=== PATIENT | male | born 1970 | race Caucasian/White ===

== ENCOUNTER 2018-07-16 23:29 | Inpatient (IN) | END 2018-07-19 14:40 | disposition home or self-care (01) | DRG 291 ==

== ENCOUNTER 2018-08-19 10:01 | Inpatient (IN) | payer OTHER ==
[2018-08-19] VITALS (7 sets, daily range): BP systolic 118–126; BP diastolic 74–83; PULSE 83–110; RESP 16–20; Ht 180.3 cm; Wt 104.6 kg
[~2018-08-19] VITALS: Ht 180.3 cm; Wt 104.6 kg
[~2018-08-19 10:01] MED LIST: ALBU8.5H8 INH; ENAL2.5T PO; FURO40TA4 PO; POTA8CAP PO
[2018-08-19] MEDS ORDERED: morphine SULFATE/PF (2 MG/2 ML) SYG IV PRN (13:00)
[2018-08-19] MEDS ORDERED: ONDANSETRON 4 MG INJ IV PRN (13:00)
[2018-08-19] MEDS ORDERED: ZOLPIDEM 5 MG TAB PO PRN (13:00)
[2018-08-19] MEDS ORDERED: ACETAMINOPHEN 325 MG TAB PO PRN (13:00)
[2018-08-19] MEDS ORDERED: NACL 0.9% 3 ML SYG IV SCH (13:00)
[2018-08-19] MEDS ORDERED: DOCUSATE SODIUM 100 MG CAP PO PRN (13:00)
[2018-08-19] MEDS ORDERED: HYDROCODONE/APAP (5/325) TAB PO PRN (13:00)
--- NOTE | 2018-08-19 15:34 | HP ---
Date/Time of Note Date/Time of Note DATE: 08/19/18 TIME: 15:31 Assessment/Plan VTE Prophylaxis Pharmacological prophylaxis: LMWH Lines/Catheters IV Catheter Type (from Nrsg): Saline Lock Assessment/Plan Hospital Course 1. CHF exacerbation with anasarca Lasix IV Continue home cardiac meds 2. History of methamphetamine abuse Cessation 3. History of cirrhosis with ascites Ultrasound of the abdomen 4. History of tobacco abuse Cessation 5. Obesity Lifestyle changes advised Prophylaxis: Lovenox HPI/ROS Admit Date/Time Admit Date/Time Aug 19, 2018 at 10:56 Hx of Present Illness Patient is a 48-year-old male with a history of cardiomyopathy with an EF of 30% secondary to methamphetamine abuse, cirrhosis with ascites, COPD and obesity who presents with anasarca and shortness of breath. Patient states that he is compliant with his Lasix and sometimes doubles up when his shortness of breath worsens. Patient has no other complaints at this time. Patient was transferred to [facility] due to capitation. ROS Constitutional: no complaints, improved Eyes: no complaints ENT: no complaints Respiratory: shortness of breath Cardiovascular: no complaints Gastrointestinal: no complaints Genitourinary: no complaints Musculoskeletal: no complaints Skin: no complaints Neurologic: no complaints Endocrine: no complaints Lymphatic: no complaints Psychological: no complaints, nl mood/affect Immunologic: no complaints PMH/Family/Social Past Medical History As per HPI Medications Current Medications IV Flush (NS 3 ml) 3 ml PER PROTOCOL IV ; Start 08/19/18 at 13:00 Ondansetron HCl (Zofran Inj) 4 mg Q6H PRN IV NAUSEA AND/OR VOMITING; Start 08/19/18 at 13:00 Acetaminophen (Tylenol Tab) 650 mg Q6H PRN PO PAIN LEVEL 1-3 OR FEVER; Start 08/19/18 at 13:00 Acetaminophen/ Hydrocodone Bitart ([place] (5/325)) 1 tab Q6H PRN PO MODERATE PAIN LEVEL 4-6; Start 08/19/18 at 13:00 Morphine Sulfate (morphine SULFATE (PF)) 2 mg Q4H PRN IV SEVERE PAIN LEVEL 7- 10; Start 08/19/18 at 13:00 Docusate Sodium (Colace) 100 mg Q12H PRN PO CONSTIPATION; Start 08/19/18 at 13:00 Zolpidem Tartrate (Ambien) 5 mg QHS PRN PO SLEEP; Start 08/19/18 at 13:00 Enoxaparin Sodium (Lovenox) 40 mg DAILY SC ; Start 08/20/18 at 09:00 Enalapril Maleate (Vasotec) 2.5 mg DAILY PO ; Start 08/20/18 at 09:00 Potassium Chloride (Micro-K) 8 meq DAILY PO ; Start 08/20/18 at 09:00 Furosemide (Lasix) 40 mg BID DIURETICS IV ; Start 08/19/18 at 18:00 Coded Allergies: No Known Allergy (Unverified , 04/06/16) Family History Significant Family History: no pertinent family hx Social History Alcohol Use: rarely Smoking Status: Current every day smoker Drug Use: other (Meth) Exam/Review of Systems Vital Signs Vitals Vital Signs Date Temp Pulse Resp B/P (MAP) Pulse Ox O2 O2 Flow FiO2 Time Delivery Rate 08/19/18 98.3 83 20 126/74 94 15:18 (91) 08/19/18 Room Air 11:40 Exam Constitutional: alert, oriented Respiratory: clear to auscultation Cardiovascular: regular rate and rhythm Gastrointestinal: soft, non-tender, distended Extremities: edema EVELIO MCKINNEY Aug 19, 2018 15:34
[2018-08-19] MEDS ORDERED: ALBUTEROL/IPRATROPIUM (NEB) 3 ML AMP HHN PRN (16:00)
[2018-08-19] MEDS ORDERED: SPIRONOLACTONE 50 MG TAB PO SCH (18:00)
[2018-08-19] MEDS: FUROSEMIDE 40 MG INJ IV SCH (18:26)
[2018-08-19] MEDS: SPIRONOLACTONE 50 MG TAB PO SCH (18:26)
--- NOTE | 2018-08-19 19:39 | NUR ---
EOSS: Pt admitted today from [place]-arrived via ambulance around 1100. AO x 4, VSS except ST on tele. Ambulatory, steady. Orders received from Dr. Price and carried out. Needs attended. Endorsed care to oncoming shift.
[2018-08-20] VITALS (7 sets, daily range): BP systolic 110–126; BP diastolic 68–79; PULSE 98–112; RESP 18–20
[2018-08-20] MEDS: SPIRONOLACTONE 50 MG TAB PO SCH (06:46)
[2018-08-20] MEDS: FUROSEMIDE 40 MG INJ IV SCH (06:46)
[2018-08-20] MEDS ORDERED: ENOXAPARIN 40 MG/0.4 ML SYG SC SCH (09:00)
[2018-08-20] MEDS ORDERED: POTASSIUM CHLORIDE (SR) 8 MEQ CAP PO SCH (09:00)
[2018-08-20] MEDS ORDERED: ENALAPRIL 2.5 MG TAB PO SCH (09:00)
[2018-08-20] MEDS ORDERED: ENAL2.5T PO (10:44)
[2018-08-20] MEDS ORDERED: FURO-109 PO (10:44)
[2018-08-20] MEDS ORDERED: SPIR50TA PO (10:44)
--- NOTE | 2018-08-20 10:45 | PDOCDIS ---
Discharge Instructions CONDITION [id number] Patient Condition: [id number] Good HOME CARE INSTRUCTIONS: [id number] Special Diet: [id number] FOLLOW UP/APPOINTMENTS Follow-up Plan FOLLOW UP WITH YOUR PCP IN 1-2 WEEKS EVELIO MCKINNEY Aug 20, 2018 10:45
--- NOTE | 2018-08-20 16:59 | DS ---
Date/Time of Note Date/Time of Note DATE: 08/20/18 TIME: 16:57 Discharge Summary Admission/Discharge Info Admit Date/Time Aug 19, 2018 at 10:56 Discharge Date/Time Aug 20, 2018 at 13:50 Discharge Diagnosis 1. Anasarca secondary to CHF exacerbation and cirrhosis-improved Patient has responded to high-dose Lasix and Aldactone, DC with both Continue home enalapril 2. History of methamphetamine abuse Cessation advised 3. History of cirrhosis with ascites Ultrasound of the abdomen shows only mild ascites DC with Lasix and Aldactone 4. History of tobacco abuse Cessation 5. Obesity Lifestyle changes advised Patient Condition: Good Hospital Course Patient is a 48-year-old male with a history of cardiomyopathy with an EF of 30% secondary to methamphetamine abuse, cirrhosis with ascites, COPD and obesity who presents with anasarca and shortness of breath. Patient states that he is compliant with his Lasix and sometimes doubles up when his shortness of breath worsens. Patient was started on high-dose Lasix and Aldactone with improvement of his anasarca. Abdominal ultrasound only showed minimal ascites, patient was stable for DC and on the day of discharge patient's vitals, labs and physical exam are stable, patient has no acute complaints questions are answered. Home Meds Active Scripts Furosemide* (Lasix*) 40 Mg Tablet, 40 MG PO BID, #60 TAB 1 Refill Take with Aldactone at the same time, try to take evening dose of both Lasix and Aldactone before 6 PM as to not effect your sleep Prov:EVELIO MCKINNEY 08/20/18 Spironolactone* (Aldactone*) 50 Mg Tablet, 100 MG PO BID, #60 TAB 1 Refill Prov:EVELIO MCKINNEY 08/20/18 Enalapril Maleate* (Enalapril Maleate*) 2.5 Mg Tablet, 2.5 MG PO DAILY, #60 TAB 0 Refills Prov:EVELIO MCKINNEY 08/20/18 Albuterol Sulfate* (Proair HFA*) 8.5 Gm Hfa.aer.ad, 2 PUFF INH Q6 for SOB, #1 INHALER Prov:CHRISTINA PERLA NP 07/19/18 Discontinued Scripts Furosemide* (Furosemide*) 40 Mg Tablet, 40 MG PO DAILY, #30 TAB Prov:CHRISTINA PERLA NP 07/19/18 Potassium Chloride* (Potassium Chloride*) 8 Meq Capsule.er, 8 MEQ PO DAILY, #30 CAP Prov:CHRISTINA PERLA MEDICAL ASST 07/19/18 Follow-up Plan FOLLOW UP WITH YOUR PCP IN 1-2 WEEKS Primary Care Provider Not On Staff Doctor Time spent on discharge: > 30 minutes EVELIO MCKINNEY Aug 20, 2018 16:59
== END 2018-08-20 13:50 | disposition home or self-care (01) | DRG 292 ==
LOC: 6WM 10:56
PROVIDERS: ADMIT Internal Medicine; ATTEND Internal Medicine
DX: I50.9 Heart failure, unspecified (principal); R18.8 Other ascites; I42.9 Cardiomyopathy, unspecified; K74.60 Unspecified cirrhosis of liver; F15.10 Other stimulant abuse, uncomplicated; Z72.0 Tobacco use; E66.9 Obesity, unspecified; Z68.32 Body mass index [BMI] 32.0-32.9, adult
CPT/HCPCS: 76705; 80048; 83036; 83735; 85025; J1650; J1940

== ENCOUNTER 2018-10-02 14:28 | Inpatient (IN) | payer OTHER ==
[~2018-10-02] VITALS: Ht 180.3 cm; Wt 109.0 kg
[~2018-10-02 14:28] MED LIST changes: +FURO-109 PO; -FURO40TA4 PO; -POTA8CAP PO; +SPIR50TA PO
[2018-10-02] MEDS ORDERED: FUROSEMIDE 40 MG INJ IV STA (14:57)
[2018-10-02] MEDS ORDERED: ASPIRIN 81 MG TAB PO STA (14:57)
[2018-10-02] MEDS ORDERED: NITROGLYCERIN 2% 1 GM OINT PKT TD STA (14:57)
[2018-10-02] MEDS ORDERED: NITROGLYCERIN (SL) 0.4 MG TAB SL PRN ×2 (15:00→18:30)
[2018-10-02] MEDS ORDERED: VANCOMYCIN 1 GM (PMX) 250 ML IVPB STA (15:50)
[2018-10-02] MEDS ORDERED: CEFEPIME 1GM/50 ML (PMX) 50 ML IVPB STA (15:50)
[2018-10-02] MEDS ORDERED: ONDANSETRON 4 MG INJ IV PRN ×2 (16:30→18:30)
[2018-10-02] MEDS ORDERED: ACETAMINOPHEN 325 MG TAB PO PRN ×2 (16:30→18:30)
--- NOTE | 2018-10-02 16:53 | ERD ---
ER Documentation Chief Complaint Chief Complaint cp and sob x 3 to 4 days; abdominal distention HPI Patient is a 48-year-old male with hepatitis C and CHF who presents with chest pain and shortness of breath. The patient started a few months ago shortness of breath but over the last 3 days has gotten worse. The patient has a history of CHF. He takes Lasix but is still having bilateral lower extremity and abdominal swelling. He said that he cannot sleep at night and his shortness of breath is worse with laying down. Upon review of old medical records the patient has had multiple visits with CHF in the past. He does not currently have a primary doctor. ROS All systems reviewed and are negative except as per history of present illness. Medications Home Meds Active Scripts Furosemide* (Lasix*) 40 Mg Tablet, 40 MG PO BID, #60 TAB 1 Refill Take with Aldactone at the same time, try to take evening dose of both Lasix and Aldactone before 6 PM as to not effect your sleep Prov:EVELIO MCKINNEY 08/20/18 Spironolactone* (Aldactone*) 50 Mg Tablet, 100 MG PO BID, #60 TAB 1 Refill Prov:EVELIO MCKINNEY 08/20/18 Enalapril Maleate* (Enalapril Maleate*) 2.5 Mg Tablet, 2.5 MG PO DAILY, #60 TAB 0 Refills Prov:EVELIO MCKINNEY 08/20/18 Albuterol Sulfate* (Proair HFA*) 8.5 Gm Hfa.aer.ad, 2 PUFF INH Q6 for SOB, #1 INHALER Prov:CHRISTINA PERLA NP 07/19/18 Allergies Allergies: Coded Allergies: No Known Allergy (Unverified , 10/02/18) PMhx/Soc History of Surgery: Yes (right wrist ORIF, appendectomy, tonsillectomy) Anesthesia Reaction: No Hx Neurological Disorder: No Hx Respiratory Disorders: Yes (asthma) Hx Cardiac Disorders: Yes (CHF) Hx Psychiatric Problems: No Hx Miscellaneous Medical Probl: No Hx Alcohol Use: No Hx Substance Use: Yes (meth last used 10/01/18) Hx Tobacco Use: Yes (1.5 pack/day) Smoking Status: Current every day smoker FmHx Family History: coronary disease Physical Exam Vitals Vital Signs Date Temp Pulse Resp B/P (MAP) Pulse Ox O2 O2 Flow FiO2 Time Delivery Rate 10/02/18 2 15:17 10/02/18 96.5 120 24 178/86 99 14:31 (116) Physical Exam Const: No acute distress Head: Atraumatic Eyes: Normal Conjunctiva ENT: Normal External Ears, Nose and Mouth. Neck: Full range of motion. No meningismus. Resp: Decreased breath sounds bilaterally Cardio: Tachycardic rate without murmur Abd: Anasarca Skin: No petechiae or rashes Back: No midline or flank tenderness Ext: Bilateral lower extremity edema Neur: Awake and alert Psych: Normal Mood and Affect Result Diagram: 10/02/18 1500 10/02/18 1500 Results 24 hrs Laboratory Tests Test 10/02/18 15:00 10/02/18 15:58 White Blood Count 9.5 10^3/ul Red Blood Count 5.68 10^6/ul Hemoglobin 14.7 g/dl Hematocrit 48.3 % Mean Corpuscular Volume 85.0 fl Mean Corpuscular Hemoglobin 25.9 pg Mean Corpuscular Hemoglobin Concent 30.4 g/dl Red Cell Distribution Width 14.6 % Platelet Count 289 10^3/UL Mean Platelet Volume 10.5 fl Immature Granulocytes % 0.500 % Neutrophils % 67.1 % Lymphocytes % 19.1 % Monocytes % 11.0 % Eosinophils % 1.8 % Basophils % 0.5 % Nucleated Red Blood Cells % 0.0 /100WBC Immature Granulocytes # 0.050 10^3/ul Neutrophils # 6.4 10^3/ul Lymphocytes # 1.8 10^3/ul Monocytes # 1.1 10^3/ul Eosinophils # 0.2 10^3/ul Basophils # 0.1 10^3/ul Nucleated Red Blood Cells # 0.0 10^3/ul Sodium Level 135 mmol/L Potassium Level 4.3 mmol/L Chloride Level 99 mmol/L Carbon Dioxide Level 23 mmol/L Anion Gap 13 Blood Urea Nitrogen 41 mg/dl Creatinine 1.59 mg/dl Est Glomerular Filtrat Rate mL/min 46 mL/min Glucose Level 112 mg/dl Calcium Level 9.5 mg/dl Troponin I 0.062 ng/ml POC Venous Lactate 2.6 mmol/L Current Medications Medications Dose Sig/Pravin Start Time Status Last (Trade) Ordered Route PRN Stop Time Admin Dose Reason Admin Aspirin 162 mg ONCE STAT 10/02/18 DC 10/02/18 (Aspirin) PO 14:57 15:10 10/02/18 14:58 1 inch ONCE STAT 10/02/18 DC 10/02/18 Nitroglycerin TD 14:57 15:10 10/02/18 14:58 (Nitroglyceri n 2% Oint) 1 tab Q5M UP TO 3 10/02/18 Nitroglycerin DOSES PRN 15:00 SL .CHEST (Nitroglyceri PAIN n (Sl Tab) 0.4 Mg) Furosemide 40 mg ONCE STAT 10/02/18 DC 10/02/18 (Lasix) IV 14:57 15:11 10/02/18 14:58 Cefepime HCl 50 ml @ ONCE STAT 10/02/18 DC 10/02/18 100 mls/hr IVPB 15:50 16:17 10/02/18 16:19 Vancomycin 250 ml @ ONCE STAT 10/02/18 HCl 125 mls/hr IVPB 15:50 10/02/18 17:49 Ondansetron 4 mg ER BRIDGE 10/02/18 HCl (Zofran PRN IV 16:30 Inj) NAUSEA/VOMITI 10/03/18 16:29 NG 650 mg ER BRIDGE 10/02/18 Acetaminophen PRN PO 16:30 (Tylenol .MILD PAIN 10/03/18 16:29 Tab) 1-3 OR TEMP Procedures/MDM EKG #1 read by me: Rate/Rhythm: Sinus tachycardia rate of 115 Intervals: Normal Impression: Tachycardia without ischemia EKG #2 read by me: Rate/Rhythm: Sinus tachycardia at a rate of 112 Intervals: Normal Impression: Tachycardia without ischemia Chest x-ray shows right lower lobe pneumonia per radiology. Smoking Cessation Therapy: Pt. was lectured for greater than 3 minutes on the health risks of continued smoking and the benefits of cessation. Sepsis Documentation: Patient's infectious symptoms have not stabilized and the patient is at risk of rapid decompensation. The patient will be admitted for careful hydration, antibiotic therapy, and infectious source control. SEVERE SEPSIS CRITERIA: Infectious source: Pneumonia End organ damage indicated by: Lactic acid greater than 2 SEPSIS MANAGEMENT Time of recognition of sepsis: 1558. Time of recognition of severe sepsis: 1558. Time of recognition of septic shock: No septic shock at this time. 3 HOUR BUNDLE Blood cultures x 2 before broad-spectrum antibiotics: Yes 30 ml/kg NS bolus not done because the patient has CHF and I am concerned about fluid overload Initial lactate 2.6 Repeat lactate pending SEPTIC SHOCK ASSESSMENT: No lactic acid > 4.0 No persistent hypotension (SBP < 90 or 40 mmHg drop, MAP < 65) despite 30 mL/kg IV fluid bolus VOLUME REASSESSMENT FOR SEPTIC SHOCK: No septic shock at this time PERSISTENT HYPOTENSION TREATMENT: Comfort care no Central line not Required Vasopressor started not required I considered further perfusion assessment with CVP measurement, SCVO2, bedside ultrasound volume assessment, passive leg raise, trial of further fluid bolus. And proceeded with broad-spectrum antibiotics, aspirin, nitroglycerin, Lasix, and admission to the panel team CRITICAL CARE Critical care time 35 minutes Emergent fluid management while maintaining close respiratory support. Provision of immediate and broad-spectrum antibiotic therapy. Simultaneous assessment for possible sources in order to direct targeted therapy. C onsideration for invasive and chemical support to prevent cardiopulmonary collapse. Critical care time is independent of procedures performed. Departure Diagnosis: Primary Impression: Severe sepsis Additional Impressions: PNA (pneumonia) Pneumonia type: due to unspecified organism Laterality: right Lung location: lower lobe of lung Qualified Codes: J18.1 - Lobar pneumonia, unspecified organism Chest pain Chest pain type: unspecified Qualified Codes: R07.9 - Chest pain, u nspecified Condition: ANURAG Chahal MD Oct 02, 2018 16:53
[2018-10-02] MEDS ORDERED: NACL 0.9% 3 ML SYG IV SCH (18:30)
[2018-10-02] MEDS ORDERED: MAGNESIUM HYDROXIDE 30ML CUP PO PRN (18:30)
[2018-10-02] MEDS ORDERED: DOCUSATE SODIUM 100 MG CAP PO PRN (18:30)
[2018-10-02] MEDS ORDERED: HYDROCODONE/APAP (5/325) TAB PO PRN (18:30)
[2018-10-02] MEDS ORDERED: ALBUTEROL/IPRATROPIUM (NEB) 3 ML AMP HHN PRN (18:30)
[2018-10-02] MEDS ORDERED: hydrALAzine 20 MG INJ IV PRN (18:30)
--- NOTE | 2018-10-02 19:43 | HP ---
DATE OF ADMISSION: 10/02/2018 IDENTIFICATION: This is 48-year-old male. CHIEF COMPLAINT: Chest pain and shortness of breath. HISTORY OF PRESENT ILLNESS: A 48-year-old male with past medical history of hepatitis C, CHF, IV anival g abuse including methamphetamine, cigarette smoking, likely cirrhosis, asthma, who comes in with arcenio rtness of breath. Symptoms have been going on for the last 3 to 4 days. He has also noted some incr easing abdominal distention and some chest pressure. The patient says he takes Aldactone and Lasix b ut he still noticed swelling occurring over the last few days worsening. He has had difficulty sleep ing at night, symptoms of possible PND and orthopnea. The patient was last here at our hospital in [facility] 08/2018. At that time, he was treated for anasarca secondary to CHF failure and likely cirrhosi s. When he came in today, he was now with a lactic acid of 2.6. His creatinine appears to be at bas mulu at 1.59. He had a chest x-ray today that shows also mild cardiomegaly and a right lower lobe i nfiltrate and right pleural effusion, signs of possible upper respiratory infection and he got a dose of antibiotics in the ER as well as Lasix IV. PAST MEDICAL HISTORY: As mentioned above. ALLERGIES: NO KNOWN DRUG ALLERGIES. HOME MEDICATIONS: 1. ProAir HFA inhale q.6 hours. 2. Enalapril 2.5 mg daily. 3. Aldactone 100 mg b.i.d. 4. Lasix 40 mg b.i.d. PAST SURGICAL HISTORY: He had right wrist surgery in the past, appendectomy, tonsillectomy. SOCIAL HISTORY: He does smoke methamphetamine and last use was 24 hours ago. He does smoke 1-1/2 pa cks of cigarettes per day, unclear for how long he has been doing this. Denies any alcohol use. FAMILY HISTORY: Positive for coronary artery disease. PHYSICAL EXAMINATION: VITAL SIGNS: Today, T-max was 96.5, pulse 120, respirations 24, blood pressure 178/86, satting at 99 % on 2 liters' nasal cannula. GENERAL: The patient is lying in bed complaining of some abdominal pain and distention, otherwise al ert. HEENT: Pupils are equal, round, react to light. Extraocular muscles are intact. NECK: Supple. No thyromegaly. LUNGS: Distant breath sounds bilaterally. CARDIOVASCULAR: S1, S2. No rubs or gallops. ABDOMEN: Significantly distended and very firm, almost tympanic. Hypoactive bowel sounds. No rebou nd or guarding. MUSCULOSKELETAL: A 1+ pitting edema bilateral lower extremities to the mid calves. NEUROLOGIC: No focal deficits, also noted generalized anasarca. LABORATORIES: CBC is normal. We mentioned lactic acid findings. Sodium 135, potassium of 4.3, chlo ride 99, CO2 of 23, BUN 41, creatinine 1.59, glucose 112. DIAGNOSTIC DATA: We mentioned the imaging findings. ASSESSMENT AND PLAN: A 48-year-old male coming in with shortness of breath and chest pressure with s igns of combination of congestive heart failure exacerbation, anasarca, possible right lower lobe pne umonia. 1. Shortness of breath and chest pressure, again that the patient was treated for congestive heart f ailure exacerbation. Put him on Lasix IV b.i.d. Keep head of the bed greater than 30 degrees. Chec k TSH, A1c and lipid panel. Also, trend his troponins q.6 hours. Rule out for acute coronary sympto ms as he does have chest pressure. Put him on high dose aspirin, morphine, oxygen and nitroglycerin. Monitor ins and outs and daily weights. Continue Aldactone for now. 2. Possible right lower lobe pneumonia. Again, put him on Levaquin antibiotics for now. 3. History of hepatitis C with cirrhosis. Again given his abdominal distention, we are going to ord er ultrasound. Consider for paracentesis. 4. Smoking history. Counseled on smoking cessation. 5. History of methamphetamine abuse, counseled on drug cessation. 6. Gastrointestinal prophylaxis. PPI. Dictated By: IRINEO CASTAÑEDA/ELDA Conf#: [id number] DID#: [id number] CC: JAVI STEVENS MD;*EndCC*
[2018-10-02 20:00] VITALS: BP 113/79; PULSE 101; PULSE 104; RESP 18; Ht 180.3 cm; Wt 109.0 kg
[2018-10-02] MEDS: LEVOFLOXACIN 750MG/D5W (PMX) 150 ML IVPB SCH (20:33)
[2018-10-02] MEDS: SPIRONOLACTONE 50 MG TAB PO SCH (20:33)
[2018-10-02] MEDS: morphine 2 MG INJ IV PRN (20:33)
[2018-10-03] VITALS (12 sets, daily range): BP systolic 102–121; BP diastolic 68–80; PULSE 101–109; RESP 0–20
[2018-10-03] MEDS: morphine 2 MG INJ IV PRN ×5 (00:50→23:53)
[2018-10-03] MEDS: ALBUTEROL HFA 8 GM INHALER INH SCH ×5 (01:24→23:05)
[2018-10-03] MEDS: PANTOPRAZOLE (EC) 40 MG TAB PO SCH (06:21)
[2018-10-03] MEDS: FUROSEMIDE 40 MG INJ IV SCH ×2 (06:27→17:14)
[2018-10-03] MEDS: SPIRONOLACTONE 50 MG TAB PO SCH ×2 (09:27→20:31)
[2018-10-03] MEDS: ASPIRIN (EC) 325 MG TAB PO SCH (09:27)
[2018-10-03] MEDS: LORAZEPAM 2 MG INJ IV PRN ×2 (10:29→23:53)
--- NOTE | 2018-10-03 11:08 | PN ---
Date/Time of Note Date/Time of Note DATE: 10/03/18 TIME: 11:08 Assessment/Plan VTE Prophylaxis Risk score (from Ns)>0 risk: 2 SCD applied (from Ns): Yes Pharmacological prophylaxis: other Lines/Catheters IV [facility]from [facility] Saline Lock Urinary Cath still in place: No Assessment/Plan Hospital Course S: Patient still having some abdominal distention symptoms and mild pain. Testicular ultrasound performed no acute abnormalities noted. Awaiting paracentesis to be performed later today. Waiting to be seen by cardiology team as well. O: VS - see below PHYSICAL EXAMINATION: GENERAL: lying in bed, otherwise alert. HEENT: Pupils are equal, round, react to light. Extraocular muscles are intact. NECK: Supple. No thyromegaly. LUNGS: Distant breath sounds bilaterally. CARDIOVASCULAR: S1, S2. No rubs or gallops. ABDOMEN: Still with significantly distended and very firm, almost tympanic. Hypoactive bowel sounds. No rebound or guarding, also noted generalized isrrael sarca. MUSCULOSKELETAL: 1+ pitting edema bilateral lower extremities to the mid calves. NEUROLOGIC: No focal deficits ASSESSMENT AND PLAN: 48-year-old male coming in with shortness of breath and chest pressure with signs of combination of congestive heart failure exacerbation, anasarca, possible right lower lobe pneumonia. 1. Shortness of breath and chest pressure- again secondary to CHF and likely cirrhosis. Echocardiogram performed in late June 2018 showed ejection fraction 30% at that time. Has presently ruled out for acute coronary syndrome. -Continue Lasix IV b.i.d, head of the bed greater than 30 degrees. -Follow-up TSH, A1c and lipid panel. - Monitor ins and outs and daily weights. - Continue Aldactone for now. 2. Possible right lower lobe pneumonia -seen on chest x-ray on admission -Continue Levaquin antibiotics for now. 3. History of hepatitis C with cirrhosis-diagnosed on prior abdominal imaging study on last admission 2 months ago. - Again given his abdominal distention, ordered for and awaiting paracentesis. 4. Smoking history - Counseled on smoking cessation. 5. History of methamphetamine abuse- counseled on drug cessation. 6. Gastrointestinal prophylaxis - PPI. Result Diagram: 10/03/18 0620 10/03/18 0620 Results 24hrs Laboratory Tests Test 10/02/18 15:00 10/02/18 15:58 10/02/18 18:24 10/03/18 00:15 White Blood Count 9.5 # Red Blood Count 5.68 Hemoglobin 14.7 Hematocrit 48.3 Mean Corpuscular 85.0 Volume Mean Corpuscular 25.9 L Hemoglobin Mean Corpuscular 30.4 L Hemoglobin Concent Red Cell 14.6 H Distribution Width Platelet Count 289 # Mean Platelet Volume 10.5 H Immature 0.500 H Granulocytes % Neutrophils % 67.1 Lymphocytes % 19.1 Monocytes % 11.0 Eosinophils % 1.8 Basophils % 0.5 Nucleated Red Blood 0.0 Cells % Immature 0.050 H Granulocytes # Neutrophils # 6.4 Lymphocytes # 1.8 Monocytes # 1.1 H Eosinophils # 0.2 Basophils # 0.1 Nucleated Red Blood 0.0 Cells # Sodium Level 135 Potassium Level 4.3 Chloride Level 99 Carbon Dioxide Level 23 Anion Gap 13 Blood Urea Nitrogen 41 H Creatinine 1.59 H Est Glomerular 46 L Filtrat Rate mL/min Glucose Level 112 Calcium Level 9.5 Troponin I 0.062 0.065 POC Venous Lactate 2.6 *H Lactic Acid Level 2.4 *H 1.3 Free Thyroxine 2.00 H Creatine Kinase 282 H Creatine Kinase 2.1 Index Creatinine Kinase MB 5.90 H (Mass) Test 10/03/18 06:20 White Blood Count 7.2 # Red Blood Count 5.62 Hemoglobin 14.3 Hematocrit 47.1 Mean Corpuscular 83.8 Volume Mean Corpuscular 25.4 L Hemoglobin Mean Corpuscular 30.4 L Hemoglobin Concent Red Cell 14.5 Distribution Width Platelet Count 260 Mean Platelet Volume 10.1 Immature 0.400 Granulocytes % Neutrophils % 65.2 Lymphocytes % 21.4 Monocytes % 9.8 Eosinophils % 2.6 Basophils % 0.6 Nucleated Red Blood 0.0 Cells % Immature 0.030 Granulocytes # Neutrophils # 4.7 Lymphocytes # 1.5 Monocytes # 0.7 Eosinophils # 0.2 Basophils # 0.0 Nucleated Red Blood 0.0 Cells # Prothrombin Time 16.6 H Prothrombin Time 1.3 Ratio INR International 1.33 Normalized Ratio Sodium Level 137 Potassium Level 4.3 Chloride Level 99 Carbon Dioxide Level 27 Anion Gap 11 Blood Urea Nitrogen 39 H Creatinine 1.55 H Est Glomerular 48 L Filtrat Rate mL/min Glucose Level 98 Hemoglobin A1c 7.0 H Lactic Acid Level 1.3 Calcium Level 9.9 Phosphorus Level 4.0 Magnesium Level 2.0 Creatine Kinase 205 H Creatine Kinase 3.5 Index Creatinine Kinase MB 7.20 H (Mass) Troponin I 0.065 Triglycerides Level 86 Cholesterol Level 98 L LDL Cholesterol, 66 Calculated HDL Cholesterol 15 L Cholesterol/HDL 6.5 Ratio Thyroid Stimulating 2.100 Hormone (TSH) Exam/Review of Systems Exam Vitals Vital Signs Date Temp Pulse Resp B/P (MAP) Pulse Ox O2 O2 Flow FiO2 Time Delivery Rate 10/03/18 2.0 08:30 10/03/18 97.9 102 16 121/73 98 08:01 (89) 10/02/18 Room Air 19:17 Results Results 24hrs Laboratory Tests Test 10/02/18 15:00 10/02/18 15:58 10/02/18 18:24 10/03/18 00:15 White Blood Count 9.5 # Red Blood Count 5.68 Hemoglobin 14.7 Hematocrit 48.3 Mean Corpuscular 85.0 Volume Mean Corpuscular 25.9 L Hemoglobin Mean Corpuscular 30.4 L Hemoglobin Concent Red Cell 14.6 H Distribution Width Platelet Count 289 # Mean Platelet Volume 10.5 H Immature 0.500 H Granulocytes % Neutrophils % 67.1 Lymphocytes % 19.1 Monocytes % 11.0 Eosinophils % 1.8 Basophils % 0.5 Nucleated Red Blood 0.0 Cells % Immature 0.050 H Granulocytes # Neutrophils # 6.4 Lymphocytes # 1.8 Monocytes # 1.1 H Eosinophils # 0.2 Basophils # 0.1 Nucleated Red Blood 0.0 Cells # Sodium Level 135 Potassium Level 4.3 Chloride Level 99 Carbon Dioxide Level 23 Anion Gap 13 Blood Urea Nitrogen 41 H Creatinine 1.59 H Est Glomerular 46 L Filtrat Rate mL/min Glucose Level 112 Calcium Level 9.5 Troponin I 0.062 0.065 POC Venous Lactate 2.6 *H Lactic Acid Level 2.4 *H 1.3 Free Thyroxine 2.00 H Creatine Kinase 282 H Creatine Kinase 2.1 Index Creatinine Kinase MB 5.90 H (Mass) Test 10/03/18 06:20 White Blood Count 7.2 # Red Blood Count 5.62 Hemoglobin 14.3 Hematocrit 47.1 Mean Corpuscular 83.8 Volume Mean Corpuscular 25.4 L Hemoglobin Mean Corpuscular 30.4 L Hemoglobin Concent Red Cell 14.5 Distribution Width Platelet Count 260 Mean Platelet Volume 10.1 Immature 0.400 Granulocytes % Neutrophils % 65.2 Lymphocytes % 21.4 Monocytes % 9.8 Eosinophils % 2.6 Basophils % 0.6 Nucleated Red Blood 0.0 Cells % Immature 0.030 Granulocytes # Neutrophils # 4.7 Lymphocytes # 1.5 Monocytes # 0.7 Eosinophils # 0.2 Basophils # 0.0 Nucleated Red Blood 0.0 Cells # Prothrombin Time 16.6 H Prothrombin Time 1.3 Ratio INR International 1.33 Normalized Ratio Sodium Level 137 Potassium Level 4.3 Chloride Level 99 Carbon Dioxide Level 27 Anion Gap 11 Blood Urea Nitrogen 39 H Creatinine 1.55 H Est Glomerular 48 L Filtrat Rate mL/min Glucose Level 98 Hemoglobin A1c 7.0 H Lactic Acid Level 1.3 Calcium Level 9.9 Phosphorus Level 4.0 Magnesium Level 2.0 Creatine Kinase 205 H Creatine Kinase 3.5 Index Creatinine Kinase MB 7.20 H (Mass) Troponin I 0.065 Triglycerides Level 86 Cholesterol Level 98 L LDL Cholesterol, 66 Calculated HDL Cholesterol 15 L Cholesterol/HDL 6.5 Ratio Thyroid Stimulating 2.100 Hormone (TSH) Medications Medication Current Medications IV Flush (NS 3 ml) 3 ml PER PROTOCOL IV ; Start 10/02/18 at 18:30 Ondansetron HCl (Zofran Inj) 4 mg Q6H PRN IV NAUSEA/VOMITING; Start 10/02/18 at 18:30 Acetaminophen (Tylenol Tab) 650 mg Q6H PRN PO .PAIN 1-3 OR TEMP; Start 10/02/18 at 18:30 Acetaminophen/ Hydrocodone Bitart ([place] (5/325)) 1 tab Q6H PRN PO .MOD PAIN 4- 6; Start 10/02/18 at 18:30 Morphine Sulfate (morphine) 2 mg Q4H PRN IV .SEVERE PAIN 7-10 Last administered on 10/03/18at 07:02; Admin Dose 2 MG; Start 10/02/18 at 18:30 Docusate Sodium (Colace) 100 mg Q12H PRN PO .CONSTIPATION; Start 10/02/18 at 18:30 Magnesium Hydroxide (Milk Of Mag) 30 ml DAILY PRN PO .CONSTIPATION; Start 10/02/18 at 18:30 Pantoprazole (Protonix Tab) 40 mg DAILY@06 PO Last administered on 10/03/18at 06:21; Admin Dose 40 MG; Start 10/03/18 at 06:00 Lorazepam (Ativan) 0.5 mg Q6H PRN IV ANXIETY Last administered on 10/03/18 10:29; Admin Dose 0.5 MG; Start 10/02/18 at 18:30 Albuterol/ Ipratropium (Duoneb) 3 ml Q4H RESP THERAPY PRN HHN SHORTNESS OF BREATH; Start 10/02/18 at 18:30 Levofloxacin/ Dextrose 150 ml @ 100 mls/hr Q24H IVPB Last administered on 10/02/18 20:33; Admin Dose 100 MLS/HR; Start 10/02/18 at 20:00 Hydralazine HCl (Apresoline) 10 mg Q6H PRN IV ELEVATED BLOOD PRESSURE; Start 10/02/18 at 18:30 Nitroglycerin (Nitroglycerin (Sl Tab) 0.4 Mg) 1 tab Q5M PRN SL ANGINA; Start 10/02/18 at 18:30 Aspirin (Ecotrin) 325 mg DAILY PO Last administered on 10/03/18 09:27; Admin Dose 325 MG; Start 10/03/18 at 09:00 Albuterol (Ventolin Hfa) 2 puff Q6 INH Last administered on 10/03/18 06:21; Admin Dose 2 PUFF; Start 10/03/18 at 00:00 Furosemide (Lasix) 40 mg BID DIURETICS IV Last administered on 10/03/18 06:27; Admin Dose 40 MG; Start 10/03/18 at 06:00 Spironolactone (Aldactone) 100 mg BID PO Last administered on 10/03/18 09:27; Admin Dose 100 MG; Start 10/02/18 at 21:00 IRINEO MARC Oct 03, 2018 11:08
--- NOTE | 2018-10-03 15:28 | CONS ---
Consult Date/Type/Reason Admit Date/Time Oct 02, 2018 at 16:29 Initial Consult Date Type of Consultation: cv Reason for Consultation chf Requesting Provider: IRINEO MARC Date/Time of Note DATE: 10/03/18 TIME: 15:23 Subjective Interventional cardiology consultation note (covering for DR Muñoz/ Jovanny) Chief complaint: sob Reason for consult: CHF /cardiomyopathy History of present illness: Thank you for this referral. History was obtained from the patient review of the old chart discussion multiple physicians and staff This is a 48-year-old male with past medical history of hepatitis C, CHF, IV drug abuse including methamphetamine, cigarette smoking, likely cirrhosis, asth ma, who comes in with shortness of breath. Symptoms have been going on for the last 2 weeks but is been worse over the past 3 to 4 days. Patient reports to me that he used crystal meth about 3 days ago. He is also run out of his medication over the past few days. He denies any chest pain or pressure to me. Patient does complain of leg cramps at night Patient does complain of shortness of breath with activity or even lying down PAST MEDICAL HISTORY: Congestive heart failure/cardiomyopathy, hepatitis, history of drug use including crystal meth, smoker, likely cirrhosis, likely COPD ALLERGIES: NO KNOWN DRUG ALLERGIES. HOME MEDICATIONS: Patient is supposed to be on 1. ProAir HFA inhale q.6 hours. 2. Enalapril 2.5 mg daily. 3. Aldactone 100 mg b.i.d. 4. Lasix 40 mg b.i.d. But he has not been taking any medication for the past few days PAST SURGICAL HISTORY: He had right wrist surgery in the past, appendectomy, tonsillectomy. SOCIAL HISTORY: He does smoke methamphetamine and last use was 2-3 days ago. He does smoke 1-1/2 packs of cigarettes per day, unclear for how long he has been doing this. It appears that has been heavy alcohol use in the past however currently does not drink much FAMILY HISTORY: His father had an CA in his late 70s Allergies: No known drug allergies Review of system: Patient denies all others except for above-mentioned Objective Vitals Vital Signs Date Temp Pulse Resp B/P (MAP) Pulse Ox O2 O2 Flow FiO2 Time Delivery Rate 10/03/18 98.8 106 16 115/79 99 12:04 (91) 2/16/19 2.0 08:30 10/02/18 Room Air 19:17 Results/Medications Result Diagram: 10/03/1861910/03/18 0620 Results 24 hrs Laboratory Tests Test 10/02/18 15:58 10/02/18 18:24 10/03/18 00:15 10/03/18 06:20 POC Venous Lactate 2.6 *H Lactic Acid Level 2.4 *H 1.3 1.3 Free Thyroxine 2.00 H Creatine Kinase 282 H 205 H Creatine Kinase 2.1 3.5 Index Creatinine Kinase MB 5.90 H 7.20 H (Mass) Troponin I 0.065 0.065 White Blood Count 7.2 # Red Blood Count 5.62 Hemoglobin 14.3 Hematocrit 47.1 Mean Corpuscular 83.8 Volume Mean Corpuscular 25.4 L Hemoglobin Mean Corpuscular 30.4 L Hemoglobin Concent Red Cell 14.5 Distribution Width Platelet Count 260 Mean Platelet Volume 10.1 Immature 0.400 Granulocytes % Neutrophils % 65.2 Lymphocytes % 21.4 Monocytes % 9.8 Eosinophils % 2.6 Basophils % 0.6 Nucleated Red Blood 0.0 Cells % Immature 0.030 Granulocytes # Neutrophils # 4.7 Lymphocytes # 1.5 Monocytes # 0.7 Eosinophils # 0.2 Basophils # 0.0 Nucleated Red Blood 0.0 Cells # Prothrombin Time 16.6 H Prothrombin Time 1.3 Ratio INR International 1.33 Normalized Ratio Sodium Level 137 Potassium Level 4.3 Chloride Level 99 Carbon Dioxide Level 27 Anion Gap 11 Blood Urea Nitrogen 39 H Creatinine 1.55 H Est Glomerular 48 L Filtrat Rate mL/min Glucose Level 98 Hemoglobin A1c 7.0 H Calcium Level 9.9 Phosphorus Level 4.0 Magnesium Level 2.0 Triglycerides Level 86 Cholesterol Level 98 L LDL Cholesterol, 66 Calculated HDL Cholesterol 15 L Cholesterol/HDL 6.5 Ratio Thyroid Stimulating 2.100 Hormone (TSH) Test 10/03/18 13:46 Lactic Acid Level 4.0 *H Home Meds Active Scripts Furosemide* (Lasix*) 40 Mg Tablet, 40 MG PO BID, #60 TAB 1 Refill Take with Aldactone at the same time, try to take evening dose of both Lasix and Aldactone before 6 PM as to not effect your sleep Prov:EVELIO MCKINNEY 08/20/18 Spironolactone* (Aldactone*) 50 Mg Tablet, 100 MG PO BID, #60 TAB 1 Refill Prov:EVELIO MCKINNEY 08/20/18 Enalapril Maleate* (Enalapril Maleate*) 2.5 Mg Tablet, 2.5 MG PO DAILY, #60 TAB 0 Refills Prov:EVELIO MCKINNEY 08/20/18 Albuterol Sulfate* (Proair HFA*) 8.5 Gm Hfa.aer.ad, 2 PUFF INH Q6 for SOB, #1 INHALER Prov:CHRISTINA PERLA [employer] 07/19/18 Medications Current Medications IV Flush (NS 3 ml) 3 ml PER PROTOCOL IV ; Start 10/02/18 at 18:30 Ondansetron HCl (Zofran Inj) 4 mg Q6H PRN IV NAUSEA/VOMITING; Start 10/02/18 at 18:30 Acetaminophen (Tylenol Tab) 650 mg Q6H PRN PO .PAIN 1-3 OR TEMP; Start 10/02/18 at 18:30 Acetaminophen/ Hydrocodone Bitart ([place] (5/325)) 1 tab Q6H PRN PO .MOD PAIN 4- 6 Last administered on 10/03/18at 11:21; Admin Dose 1 TAB; Start 10/02/18 at 18:30 Morphine Sulfate (morphine) 2 mg Q4H PRN IV .SEVERE PAIN 7-10 Last administered on 10/03/18at 15:11; Admin Dose 2 MG; Start 10/02/18 at 18:30 Docusate Sodium (Colace) 100 mg Q12H PRN PO .CONSTIPATION; Start 10/02/18 at 18:30 Magnesium Hydroxide (Milk Of Mag) 30 ml DAILY PRN PO .CONSTIPATION; Start 10/02/18 at 18:30 Pantoprazole (Protonix Tab) 40 mg DAILY@06 PO Last administered on 10/03/18at 06:21; Admin Dose 40 MG; Start 10/03/18 at 06:00 Lorazepam (Ativan) 0.5 mg Q6H PRN IV ANXIETY Last administered on 10/03/18at 10:29; Admin Dose 0.5 MG; Start 10/02/18 at 18:30 Albuterol/ Ipratropium (Duoneb) 3 ml Q4H RESP THERAPY PRN HHN SHORTNESS OF BREATH; Start 10/02/18 at 18:30 Levofloxacin/ Dextrose 150 ml @ 100 mls/hr Q24H IVPB Last administered on 10/02/18 20:33; Admin Dose 100 MLS/HR; Start 10/02/18 at 20:00 Hydralazine HCl (Apresoline) 10 mg Q6H PRN IV ELEVATED BLOOD PRESSURE; Start 10/02/18 at 18:30 Nitroglycerin (Nitroglycerin (Sl Tab) 0.4 Mg) 1 tab Q5M PRN SL ANGINA; Start 10/02/18 at 18:30 Aspirin (Ecotrin) 325 mg DAILY PO Last administered on 10/03/18 09:27; Admin Dose 325 MG; Start 10/03/18 at 09:00 Albuterol (Ventolin Hfa) 2 puff Q6 INH Last administered on 10/03/18 12:50; Admin Dose 2 PUFF; Start 10/03/18 at 00:00 Furosemide (Lasix) 40 mg BID DIURETICS IV Last administered on 10/03/18 06:27; Admin Dose 40 MG; Start 10/03/18 at 06:00 Spironolactone (Aldactone) 100 mg BID PO Last administered on 10/03/18 09:27; Admin Dose 100 MG; Start 10/02/18 at 21:00 JAVI STEVENS MD Oct 03, 2018 15:28
[2018-10-03] MEDS ORDERED: DIGOXIN 500 MCG INJ IV ONE (15:30)
--- NOTE | 2018-10-03 15:31 | CONS ---
Assessment/Plan Assessment/Plan Hospital Course (Demo Recall) 1. CHF 2. Severe cardiomyopathy 3. Possible pneumonia 4. Noncompliance and history of smoking and drug use including crystal meth use 5. Dyslipidemia 6. Renal insufficiency Recommendations: Continue with diuresis as tolerated. Monitor renal function and I's and O's. I will decrease Aldactone to 50 twice daily only Digoxin will be added for now. Level to be checked in a few days and adjusted as needed. Need to keep the digit level less than 1.0 Antibiotic management will be deferred to internal medicine decision Thank you for his referral. We will continue to follow along with you until Dr. Muñoz returns on Friday JAVI STEVENS MD [facility] Consultation Date/Type/Reason Admit Date/Time Oct 02, 2018 at 16:29 Date of Consultation: Oct 03, 2018 Type of Consult Cardiology Reason for Consultation CHF Requesting Provider: IRINEO MARC Date/Time of Note DATE: 10/03/18 TIME: 15:28 Hx of Present Illness Interventional cardiology consultation note (covering for DR Muñoz/ Jovanny) Chief complaint: sob Reason for consult: CHF /cardiomyopathy History of present illness: Thank you for this referral. History was obtained from the patient review of the old chart discussion multiple physicians and staff This is a 48-year-old male with past medical history of hepatitis C, CHF, IV drug abuse including methamphetamine, cigarette smoking, likely cirrhosis, asthma, who comes in with shortness of breath. Symptoms have been going on for the last 2 weeks but is been worse over the past 3 to 4 days. Patient reports to me that he used crystal meth about 3 days ago. He is also run out of his medication over the past few days. He denies any chest pain or pressure to me. Patient does complain of leg cramps at night Patient does complain of shortness of breath with activity or even lying down PAST MEDICAL HISTORY: Congestive heart failure/cardiomyopathy, hepatitis, history of drug use including crystal meth, smoker, likely cirrhosis, likely COPD ALLERGIES: NO KNOWN DRUG ALLERGIES. HOME MEDICATIONS: Patient is supposed to be on 1. ProAir HFA inhale q.6 hours. 2. Enalapril 2.5 mg daily. 3. Aldactone 100 mg b.i.d. 4. Lasix 40 mg b.i.d. But he has not been taking any medication for the past few days PAST SURGICAL HISTORY: He had right wrist surgery in the past, appendectomy, tonsillectomy. SOCIAL HISTORY: He does smoke methamphetamine and last use was 2-3 days ago. He does smoke 1-1/2 packs of cigarettes per day, unclear for how long he has been doing this. It appears that has been heavy alcohol use in the past however currently does not drink much FAMILY HISTORY: His father had an AL in his late 70s Allergies: No known drug allergies Review of system: Patient denies all others except for above-mentioned Past Medical History Home Meds Active Scripts Furosemide* (Lasix*) 40 Mg Tablet, 40 MG PO BID, #60 TAB 1 Refill Take with Aldactone at the same time, try to take evening dose of both Lasix and Aldactone before 6 PM as to not effect your sleep Prov:EVELIO MCKINNEY 08/20/18 Spironolactone* (Aldactone*) 50 Mg Tablet, 100 MG PO BID, #60 TAB 1 Refill Prov:EVELIO MCKINNEY 08/20/18 Enalapril Maleate* (Enalapril Maleate*) 2.5 Mg Tablet, 2.5 MG PO DAILY, #60 TAB 0 Refills Prov:EVELIO MCKINNEY 08/20/18 Albuterol Sulfate* (Proair HFA*) 8.5 Gm Hfa.aer.ad, 2 PUFF INH Q6 for SOB, #1 INHALER Prov:CHRISTINA PERLA NP 07/19/18 Medications Current Medications IV Flush (NS 3 ml) 3 ml PER PROTOCOL IV ; Start 10/02/18 at 18:30 Ondansetron HCl (Zofran Inj) 4 mg Q6H PRN IV NAUSEA/VOMITING; Start 10/02/18 at 18:30 Acetaminophen (Tylenol Tab) 650 mg Q6H PRN PO .PAIN 1-3 OR TEMP; Start 10/02/18 at 18:30 Acetaminophen/ Hydrocodone Bitart ([place] (5/325)) 1 tab Q6H PRN PO .MOD PAIN 4- 6 Last administered on 10/03/18at 11:21; Admin Dose 1 TAB; Start 10/02/18 at 18:30 Morphine Sulfate (morphine) 2 mg Q4H PRN IV .SEVERE PAIN 7-10 Last administered on 10/03/18at 15:11; Admin Dose 2 MG; Start 10/02/18 at 18:30 Docusate Sodium (Colace) 100 mg Q12H PRN PO .CONSTIPATION; Start 10/02/18 at 18:30 Magnesium Hydroxide (Milk Of Mag) 30 ml DAILY PRN PO .CONSTIPATION; Start 10/02/18 at 18:30 Pantoprazole (Protonix Tab) 40 mg DAILY@06 PO Last administered on 10/03/18 06:21; Admin Dose 40 MG; Start 10/03/18 at 06:00 Lorazepam (Ativan) 0.5 mg Q6H PRN IV ANXIETY Last administered on 10/03/18 10: 29; Admin Dose 0.5 MG; Start 10/02/18 at 18:30 Albuterol/ Ipratropium (Duoneb) 3 ml Q4H RESP THERAPY PRN HHN SHORTNESS OF BREATH; Start 10/02/18 at 18:30 Levofloxacin/ Dextrose 150 ml @ 100 mls/hr Q24H IVPB Last administered on 10/02/18at 20:33; Admin Dose 100 MLS/HR; Start 10/02/18 at 20:00 Hydralazine HCl (Apresoline) 10 mg Q6H PRN IV ELEVATED BLOOD PRESSURE; Start 10/02/18 at 18:30 Nitroglycerin (Nitroglycerin (Sl Tab) 0.4 Mg) 1 tab Q5M PRN SL ANGINA; Start 10/02/18 at 18:30 Aspirin (Ecotrin) 325 mg DAILY PO Last administered on 10/03/18 09:27; Admin Dose 325 MG; Start 10/03/18 at 09:00 Albuterol (Ventolin Hfa) 2 puff Q6 INH Last administered on 10/03/18 12:50; Admin Dose 2 PUFF; Start 10/03/18 at 00:00 Furosemide (Lasix) 40 mg BID DIURETICS IV Last administered on 10/03/18 0 6:27; Admin Dose 40 MG; Start 10/03/18 at 06:00 Spironolactone (Aldactone) 100 mg BID PO Last administered on 10/03/18 09:27; Admin Dose 100 MG; Start 10/02/18 at 21:00 Allergies: Coded Allergies: No Known Allergy (Unverified , 10/02/18) Social History Smoking Status: Current every day smoker Exam/Review of Systems Vital Signs Vitals Vital Signs Date Temp Pulse Resp B/P (MAP) Pulse Ox O2 O2 Flow FiO2 Time Delivery Rate 10/03/18 98.8 106 16 115/79 99 12:04 (91) 10/03/18 2.0 08:30 10/02/18 Room Air 19:17 Exam Exam General: no acute distress HEENT: NC/AT. pupils are equal. round. NECK: NO JVD. no stridor. CV: RRR. systolic murmur; no gallop or rubs. PULM: no wheezing + rhonchi. GI: SOFT, NT, ND, no rebound or guarding Extremity: trace B/L LE edema. no clubbing. neuro: awake and alert, OX3. Psych: calm and pleasant rectal: deferred Derm: Multiple tattoos EKG shows sinus tachycardia with anterior infarct age undetermined Chest x-ray read by radiologist shows: Mild cardiomegaly. Right lower lobe infiltrate and right pleural effusion. Labs Result Diagram: 10/03/18 0620 10/03/18 0620 Results 24hrs Laboratory Tests Test 10/02/18 15:58 10/02/18 18:24 10/03/18 00:15 10/03/18 06:20 POC Venous Lactate 2.6 *H Lactic Acid Level 2.4 *H 1.3 1.3 Free Thyroxine 2.00 H Creatine Kinase 282 H 205 H Creatine Kinase 2.1 3.5 Index Creatinine Kinase MB 5.90 H 7.20 H (Mass) Troponin I 0.065 0.065 White Blood Count 7.2 # Red Blood Count 5.62 Hemoglobin 14.3 Hematocrit 47.1 Mean Corpuscular 83.8 Volume Mean Corpuscular 25.4 L Hemoglobin Mean Corpuscular 30.4 L Hemoglobin Concent Red Cell 14.5 Distribution Width Platelet Count 260 Mean Platelet Volume 10.1 Immature 0.400 Granulocytes % Neutrophils % 65.2 Lymphocytes % 21.4 Monocytes % 9.8 Eosinophils % 2.6 Basophils % 0.6 Nucleated Red Blood 0.0 Cells % Immature 0.030 Granulocytes # Neutrophils # 4.7 Lymphocytes # 1.5 Monocytes # 0.7 Eosinophils # 0.2 Basophils # 0.0 Nucleated Red Blood 0.0 Cells # Prothrombin Time 16.6 H Prothrombin Time 1.3 Ratio INR International 1.33 Normalized Ratio Sodium Level 137 Potassium Level 4.3 Chloride Level 99 Carbon Dioxide Level 27 Anion Gap 11 Blood Urea Nitrogen 39 H Creatinine 1.55 H Est Glomerular 48 L Filtrat Rate mL/min Glucose Level 98 Hemoglobin A1c 7.0 H Calcium Level 9.9 Phosphorus Level 4.0 Magnesium Level 2.0 Triglycerides Level 86 Cholesterol Level 98 L LDL Cholesterol, 66 Calculated HDL Cholesterol 15 L Cholesterol/HDL 6.5 Ratio Thyroid Stimulating 2.100 Hormone (TSH) Test 10/03/18 13:46 Lactic Acid Level 4.0 *H Medications Medications Current Medications IV Flush (NS 3 ml) 3 ml PER PROTOCOL IV ; Start 10/02/18 at 18:30 Ondansetron HCl (Zofran Inj) 4 mg Q6H PRN IV NAUSEA/VOMITING; Start 10/02/18 at 18:30 Acetaminophen (Tylenol Tab) 650 mg Q6H PRN PO .PAIN 1-3 OR TEMP; Start 10/02/18 at 18:30 Acetaminophen/ Hydrocodone Bitart ([place] (5/325)) 1 tab Q6H PRN PO .MOD PAIN 4- 6 Last administered on 10/03/18at 11:21; Admin Dose 1 TAB; Start 10/02/18 at 18:30 Morphine Sulfate (morphine) 2 mg Q4H PRN IV .SEVERE PAIN 7-10 Last administered on 10/03/18at 15:11; Admin Dose 2 MG; Start 10/02/18 at 18:30 Docusate Sodium (Colace) 100 mg Q12H PRN PO .CONSTIPATION; Start 10/02/18 at 1 8:30 Magnesium Hydroxide (Milk Of Mag) 30 ml DAILY PRN PO .CONSTIPATION; Start 10/02/18 at 18:30 Pantoprazole (Protonix Tab) 40 mg DAILY@06 PO Last administered on 10/03/18at 06:21; Admin Dose 40 MG; Start 10/03/18 at 06:00 Lorazepam (Ativan) 0.5 mg Q6H PRN IV ANXIETY Last administered on 10/03/18at 10:29; Admin Dose 0.5 MG; Start 10/02/18 at 18:30 Albuterol/ Ipratropium (Duoneb) 3 ml Q4H RESP THERAPY PRN HHN SHORTNESS OF BREATH; Start 10/02/18 at 18:30 Levofloxacin/ Dextrose 150 ml @ 100 mls/hr Q24H IVPB Last administered on 10/02/18 20:33; Admin Dose 100 MLS/HR; Start 10/02/18 at 20:00 Hydralazine HCl (Apresoline) 10 mg Q6H PRN IV ELEVATED BLOOD PRESSURE; Start 10/02/18 at 18:30 Nitroglycerin (Nitroglycerin (Sl Tab) 0.4 Mg) 1 tab Q5M PRN SL ANGINA; Start 10/02/18 at 18:30 Aspirin (Ecotrin) 325 mg DAILY PO Last administered on 10/03/18 09:27; Admin Dose 325 MG; Start 10/03/18 at 09:00 Albuterol (Ventolin Hfa) 2 puff Q6 INH Last administered on 10/03/18 12:50; Admin Dose 2 PUFF; Start 10/03/18 at 00:00 Furosemide (Lasix) 40 mg BID DIURETICS IV Last administered on 10/03/18 06:27; Admin Dose 40 MG; Start 10/03/18 at 06:00 Spironolactone (Aldactone) 100 mg BID PO Last administered on 10/03/18 09:27; Admin Dose 100 MG; Start 10/02/18 at 21:00 JAVI STEVENS MD Oct 03, 2018 15:31
[2018-10-03] MEDS: LEVOFLOXACIN 750MG/D5W (PMX) 150 ML IVPB SCH (20:31)
[2018-10-04] VITALS (12 sets, daily range): BP systolic 111–139; BP diastolic 73–96; PULSE 97–107; RESP 16–18
[2018-10-04] MEDS: ALBUTEROL HFA 8 GM INHALER INH SCH ×3 (06:16→17:46)
[2018-10-04] MEDS: FUROSEMIDE 40 MG INJ IV SCH ×2 (06:16→17:46)
[2018-10-04] MEDS: PANTOPRAZOLE (EC) 40 MG TAB PO SCH (06:16)
[2018-10-04] MEDS: morphine 2 MG INJ IV PRN ×2 (06:21→17:52)
[2018-10-04] MEDS: ASPIRIN (EC) 325 MG TAB PO SCH (08:29)
[2018-10-04] MEDS: SPIRONOLACTONE 50 MG TAB PO SCH ×2 (08:29→21:00)
[2018-10-04] MEDS: DIGOXIN 0.125 MG TAB PO SCH (12:23)
--- NOTE | 2018-10-04 12:35 | PN ---
Date/Time of Note Date/Time of Note DATE: 10/04/18 TIME: 12:30 Assessment/Plan VTE Prophylaxis Risk score (from Ns)>0 risk: 5 SCD applied (from Ns): Yes Pharmacological prophylaxis: other Lines/Catheters IV [facility]ter [facility]from [facility] [place] Urinary Cath still in place: No Assessment/Plan Hospital Course S: Patient not able to get paracentesis performed because not enough ascitic fluid to drain out. No acute events overnight. O: VS - see below PHYSICAL EXAMINATION: GENERAL: lying in bed, otherwise alert. HEENT: Pupils are equal, round, react to light. Extraocular muscles are intact. NECK: Supple. No thyromegaly. LUNGS: less distant breath sounds bilaterally. CARDIOVASCULAR: S1, S2. No rubs or gallops. ABDOMEN: Still distended and firm, tympanic. Hypoactive bowel sounds. No rebound or guarding, also noted generalized anasarca. MUSCULOSKELETAL: 1+ pitting edema bilateral lower extremities to the mid calves. NEUROLOGIC: No focal deficits ASSESSMENT AND PLAN: 48-year-old male coming in with shortness of breath and chest pressure with signs of combination of congestive heart failure exacerbation, anasarca, possible right lower lobe pneumonia. 1. Shortness of breath and chest pressure- again secondary to CHF and likely cirrhosis. Echocardiogram performed in late June 2018 showed ejection fraction 30% at that time. Has presently ruled out for acute coronary syndrome. -For now continue Lasix IV b.i.d, head of the bed greater than 30 degrees. - Monitor ins and outs and daily weights. - Continue Aldactone for now, cardiology team is lowered the dose to 50 mg now 2. Possible right lower lobe pneumonia -seen on chest x-ray on admission -Continue Levaquin antibiotics for now. 3. History of hepatitis C with cirrhosis-diagnosed on prior abdominal imaging study on last admission 2 months ago. - Again given his abdominal distention, ordered for and awaiting paracentesis. 4. Smoking history - Counseled on smoking cessation. 5. History of methamphetamine abuse- counseled on drug cessation. 6. Gastrointestinal prophylaxis - PPI. Result Diagram: 10/04/18 0602 10/04/18 0602 Results 24hrs Laboratory Tests Test 10/03/18 13:46 10/03/18 20:14 10/04/18 06:02 Lactic Acid Level 4.0 *H 3.0 *H 1.5 White Blood Count 6.8 Red Blood Count 5.17 Hemoglobin 13.2 L Hematocrit 43.6 Mean Corpuscular Volume 84.3 Mean Corpuscular Hemoglobin 25.5 L Mean Corpuscular Hemoglobin Concent 30.3 L Red Cell Distribution Width 14.6 H Platelet Count 220 Mean Platelet Volume 10.1 Immature Granulocytes % 0.400 Neutrophils % 70.9 Lymphocytes % 15.3 Monocytes % 10.5 Eosinophils % 2.5 Basophils % 0.4 Nucleated Red Blood Cells % 0.0 Immature Granulocytes # 0.030 Neutrophils # 4.8 Lymphocytes # 1.0 Monocytes # 0.7 Eosinophils # 0.2 Basophils # 0.0 Nucleated Red Blood Cells # 0.0 Sodium Level 138 Potassium Level 4.3 Chloride Level 97 Carbon Dioxide Level 26 Anion Gap 15 H Blood Urea Nitrogen 37 H Creatinine 1.57 H Est Glomerular Filtrat Rate mL/min 47 L Glucose Level 129 Calcium Level 9.2 Magnesium Level 1.9 Total Bilirubin 0.6 Direct Bilirubin 0.00 Indirect Bilirubin 0.6 Aspartate Amino Transf (AST/SGOT) 49 H Alanine Aminotransferase (ALT/SGPT) 44 Alkaline Phosphatase 88 B-Type Natriuretic Peptide 5790 H Total Protein 6.5 Albumin 3.7 Globulin 2.80 Albumin/Globulin Ratio 1.32 Thyroid Stimulating Hormone (TSH) 2.320 Free Thyroxine 1.72 Exam/Review of Systems Exam Vitals Vital Signs Date Temp Pulse Resp B/P (MAP) Pulse Ox O2 O2 Flow FiO2 Time Delivery Rate 10/04/18 97.5 99 16 130/82 97 11:31 (98) 10/04/18 Nasal 3.0 07:57 Cannula 10/04/18 28 04:18 Intake and Output 10/03/18 10/03/18 10/04/18 1515:00 23:00 07:00 IntakeIntake Total 0 ml 1150 ml 900 ml OutputOutput Total 800 ml BalanceBalance 0 ml 350 ml 900 ml Results Results 24hrs Laboratory Tests Test 10/03/18 13:46 10/03/18 20:14 10/04/18 06:02 Lactic Acid Level 4.0 *H 3.0 *H 1.5 White Blood Count 6.8 Red Blood Count 5.17 Hemoglobin 13.2 L Hematocrit 43.6 Mean Corpuscular Volume 84.3 Mean Corpuscular Hemoglobin 25.5 L Mean Corpuscular Hemoglobin Concent 30.3 L Red Cell Distribution Width 14.6 H Platelet Count 220 Mean Platelet Volume 10.1 Immature Granulocytes % 0.400 Neutrophils % 70.9 Lymphocytes % 15.3 Monocytes % 10.5 Eosinophils % 2.5 Basophils % 0.4 Nucleated Red Blood Cells % 0.0 Immature Granulocytes # 0.030 Neutrophils # 4.8 Lymphocytes # 1.0 Monocytes # 0.7 Eosinophils # 0.2 Basophils # 0.0 Nucleated Red Blood Cells # 0.0 Sodium Level 138 Potassium Level 4.3 Chloride Level 97 Carbon Dioxide Level 26 Anion Gap 15 H Blood Urea Nitrogen 37 H Creatinine 1.57 H Est Glomerular Filtrat Rate mL/min 47 L Glucose Level 129 Calcium Level 9.2 Magnesium Level 1.9 Total Bilirubin 0.6 Direct Bilirubin 0.00 Indirect Bilirubin 0.6 Aspartate Amino Transf (AST/SGOT) 49 H Alanine Aminotransferase (ALT/SGPT) 44 Alkaline Phosphatase 88 B-Type Natriuretic Peptide 5790 H Total Protein 6.5 Albumin 3.7 Globulin 2.80 Albumin/Globulin Ratio 1.32 Thyroid Stimulating Hormone (TSH) 2.320 Free Thyroxine 1.72 Medications Medication Current Medications IV Flush (NS 3 ml) 3 ml PER PROTOCOL IV ; Start 10/02/18 at 18:30 Ondansetron HCl (Zofran Inj) 4 mg Q6H PRN IV NAUSEA/VOMITING; Start 10/02/18 at 18:30 Acetaminophen (Tylenol Tab) 650 mg Q6H PRN PO .PAIN 1-3 OR TEMP; Start 10/02/18 at 18:30 Acetaminophen/ Hydrocodone Bitart ([place] (5/325)) 1 tab Q6H PRN PO .MOD PAIN 4- 6 Last administered on 10/03/18at 11:21; Admin Dose 1 TAB; Start 10/02/18 at 18:30 Morphine Sulfate (morphine) 2 mg Q4H PRN IV .SEVERE PAIN 7-10 Last administered on 10/04/18at 06:21; Admin Dose 2 MG; Start 10/02/18 at 18:30 Docusate Sodium (Colace) 100 mg Q12H PRN PO .CONSTIPATION; Start 10/02/18 at 18:30 Magnesium Hydroxide (Milk Of Mag) 30 ml DAILY PRN PO .CONSTIPATION; Start 10/02/18 at 18:30 Pantoprazole (Protonix Tab) 40 mg DAILY@06 PO Last administered on 10/04/18 06:16; Admin Dose 40 MG; Start 10/03/18 at 06:00 Lorazepam (Ativan) 0.5 mg Q6H PRN IV ANXIETY Last administered on 10/03/18 23:53; Admin Dose 0.5 MG; Start 10/02/18 at 18:30 Albuterol/ Ipratropium (Duoneb) 3 ml Q4H RESP THERAPY PRN HHN SHORTNESS OF BREATH; Start 10/02/18 at 18:30 Levofloxacin/ Dextrose 150 ml @ 100 mls/hr Q24H IVPB Last administered on 10/03/18 20:31; Admin Dose 100 MLS/HR; Start 10/02/18 at 20:00 Hydralazine HCl (Apresoline) 10 mg Q6H PRN IV ELEVATED BLOOD PRESSURE; Start 10/02/18 at 18:30 Nitroglycerin (Nitroglycerin (Sl Tab) 0.4 Mg) 1 tab Q5M PRN SL ANGINA; Start 10/02/18 at 18:30 Aspirin (Ecotrin) 325 mg DAILY PO Last administered on 10/04/18 08:29; Admin Dose 325 MG; Start 10/03/18 at 09:00 Albuterol (Ventolin Hfa) 2 puff Q6 INH Last administered on 10/04/18 12:22; Admin Dose 2 PUFF; Start 10/03/18 at 00:00 Furosemide (Lasix) 40 mg BID DIURETICS IV Last administered on 10/04/18 06:16; Admin Dose 40 MG; Start 10/03/18 at 06:00 Spironolactone (Aldactone) 50 mg BID PO Last administered on 10/04/18 08:29; Admin Dose 50 MG; Start 10/03/18 at 21:00 Digoxin (Digoxin) 0.125 mg DAILY@13 PO Last administered on 10/04/18 12:23; Admin Dose 0.125 MG; Start 10/04/18 at 13:00 IRINEO MARC Oct 04, 2018 12:35
--- NOTE | 2018-10-04 15:25 | CONS ---
Consult Date/Type/Reason Admit Date/Time Oct 02, 2018 at 16:29 Initial Consult Date Type of Consultation: cv Requesting Provider: IRINEO MARC Date/Time of Note DATE: 10/04/18 TIME: 15:23 Subjective Interventional cardiology follow-up progress note (covering Dr Muñoz) S Discussed with the staff rhythm was reviewed patient remains normal sinus rhythm with frequent PACs and PVC No reported chest pain or pressure Patient is a complaint of shortness of breath Objective: General: no acute distress HEENT: NC/AT. pupils are equal. round. NECK: NO JVD. no stridor. CV: RRR. systolic murmur; no gallop or rubs. PULM: no wheezing + rhonchi. GI: SOFT, NT, ND, no rebound or guarding Extremity: trace B/L LE edema. no clubbing. neuro: awake and alert, OX3. Psych: calm and pleasant rectal: deferred Derm: Multiple tattoos EKG shows sinus tachycardia with anterior infarct age undetermined Chest x-ray read by radiologist shows: Mild cardiomegaly. Right lower lobe infiltrate and right pleural effusion. Objective Vitals Vital Signs Date Temp Pulse Resp B/P (MAP) Pulse Ox O2 O2 Flow FiO2 Time Delivery Rate 10/04/18 97.7 99 16 116/83 97 15:19 (94) 10/04/18 Nasal 3.0 07:57 Cannula 10/04/18 28 04:18 Intake and Output 10/03/18 10/03/18 10/04/18 1414:59 22:59 06:59 IntakeIntake Total 0 ml 1150 ml 900 ml OutputOutput Total 800 ml BalanceBalance 0 ml 350 ml 900 ml Results/Medications Result Diagram: 10/04/18 0602 10/04/18 0602 Results 24 hrs Laboratory Tests Test 10/03/18 20:14 10/04/18 06:02 Lactic Acid Level 3.0 *H 1.5 White Blood Count 6.8 Red Blood Count 5.17 Hemoglobin 13.2 L Hematocrit 43.6 Mean Corpuscular Volume 84.3 Mean Corpuscular Hemoglobin 25.5 L Mean Corpuscular Hemoglobin Concent 30.3 L Red Cell Distribution Width 14.6 H Platelet Count 220 Mean Platelet Volume 10.1 Immature Granulocytes % 0.400 Neutrophils % 70.9 Lymphocytes % 15.3 Monocytes % 10.5 Eosinophils % 2.5 Basophils % 0.4 Nucleated Red Blood Cells % 0.0 Immature Granulocytes # 0.030 Neutrophils # 4.8 Lymphocytes # 1.0 Monocytes # 0.7 Eosinophils # 0.2 Basophils # 0.0 Nucleated Red Blood Cells # 0.0 Sodium Level 138 Potassium Level 4.3 Chloride Level 97 Carbon Dioxide Level 26 Anion Gap 15 H Blood Urea Nitrogen 37 H Creatinine 1.57 H Est Glomerular Filtrat Rate mL/min 47 L Glucose Level 129 Calcium Level 9.2 Magnesium Level 1.9 Total Bilirubin 0.6 Direct Bilirubin 0.00 Indirect Bilirubin 0.6 Aspartate Amino Transf (AST/SGOT) 49 H Alanine Aminotransferase (ALT/SGPT) 44 Alkaline Phosphatase 88 B-Type Natriuretic Peptide 5790 H Total Protein 6.5 Albumin 3.7 Globulin 2.80 Albumin/Globulin Ratio 1.32 Thyroid Stimulating Hormone (TSH) 2.320 Free Thyroxine 1.72 Home Meds Active Scripts Furosemide* (Lasix*) 40 Mg Tablet, 40 MG PO BID, #60 TAB 1 Refill Take with Aldactone at the same time, try to take evening dose of both Lasix and Aldactone before 6 PM as to not effect your sleep Prov:EVELIO MCKINNEY 08/20/18 Spironolactone* (Aldactone*) 50 Mg Tablet, 100 MG PO BID, #60 TAB 1 Refill Prov:EVELIO MCKINNEY 08/20/18 Enalapril Maleate* (Enalapril Maleate*) 2.5 Mg Tablet, 2.5 MG PO DAILY, #60 TAB 0 Refills Prov:EVELIO MCKINNEY 08/20/18 Albuterol Sulfate* (Proair HFA*) 8.5 Gm Hfa.aer.ad, 2 PUFF INH Q6 for SOB, #1 INHALER Prov:CHRISTINA PERLA NP 07/19/18 Medications Current Medications IV Flush (NS 3 ml) 3 ml PER PROTOCOL IV ; Start 10/02/18 at 18:30 Ondansetron HCl (Zofran Inj) 4 mg Q6H PRN IV NAUSEA/VOMITING; Start 10/02/18 at 18:30 Acetaminophen (Tylenol Tab) 650 mg Q6H PRN PO .PAIN 1-3 OR TEMP; Start 10/02/18 at 18:30 Acetaminophen/ Hydrocodone Bitart ([place] (5/325)) 1 tab Q6H PRN PO .MOD PAIN 4-6 Last administered on 10/03/18 11:21; Admin Dose 1 TAB; Start 10/02/18 at 18:30 Morphine Sulfate (morphine) 2 mg Q4H PRN IV .SEVERE PAIN 7-10 Last administered on 10/04/18 06:21; Admin Dose 2 MG; Start 10/02/18 at 18:30 Docusate Sodium (Colace) 100 mg Q12H PRN PO .CONSTIPATION; Start 10/02/18 at 18:30 Magnesium Hydroxide (Milk Of Mag) 30 ml DAILY PRN PO .CONSTIPATION; Start 10/02/18 at 18:30 Pantoprazole (Protonix Tab) 40 mg DAILY@06 PO Last administered on 10/04/18 06:16; Admin Dose 40 MG; Start 10/03/18 at 06:00 Lorazepam (Ativan) 0.5 mg Q6H PRN IV ANXIETY Last administered on 10/03/18 23:53; Admin Dose 0.5 MG; Start 10/02/18 at 18:30 Albuterol/ Ipratropium (Duoneb) 3 ml Q4H RESP THERAPY PRN HHN SHORTNESS OF BREATH; Start 10/02/18 at 18:30 Levofloxacin/ Dextrose 150 ml @ 100 mls/hr Q24H IVPB Last administered on 10/03/18 20:31; Admin Dose 100 MLS/HR; Start 10/02/18 at 20:00 Hydralazine HCl (Apresoline) 10 mg Q6H PRN IV ELEVATED BLOOD PRESSURE; Start 10/02/18 at 18:30 Nitroglycerin (Nitroglycerin (Sl Tab) 0.4 Mg) 1 tab Q5M PRN SL ANGINA; Start 10/02/18 at 18:30 Aspirin (Ecotrin) 325 mg DAILY PO Last administered on 10/04/18 08:29; Admin Dose 325 MG; Start 10/03/18 at 09:00 Albuterol (Ventolin Hfa) 2 puff Q6 INH Last administered on 10/04/18 12:22; Admin Dose 2 PUFF; Start 10/03/18 at 00:00 Furosemide (Lasix) 40 mg BID DIURETICS IV Last administered on 2/17/19at 06:16; Admin Dose 40 MG; Start 10/03/18 at 06:00 Spironolactone (Aldactone) 50 mg BID PO Last administered on 10/04/18at 08:29; Admin Dose 50 MG; Start 10/03/18 at 21:00 Digoxin (Digoxin) 0.125 mg DAILY@13 PO Last administered on 10/04/18at 12:23; Admin Dose 0.125 MG; Start 10/04/18 at 13:00 Assessment/Plan Hospital Course (Demo Recall) 1. CHF 2. Severe cardiomyopathy 3. Possible pneumonia 4. Noncompliance and history of smoking and drug use including crystal meth use 5. Dyslipidemia 6. Renal insufficiency Recommendations: Continue with diuresis as tolerated. Monitor renal function and I's and O's. Continue Aldactone and digoxin Need to keep the digit level less than 1.0 Antibiotic management will be deferred to internal medicine decision We will add low-dose AKANKSHA inhibitor follow-up renal function Thank you for his referral. We will continue to follow along with you until Dr. Muñoz returns on Friday JAVI STEVENS MD [facility] JAVI STEVENS MD Oct 04, 2018 15:25
[2018-10-04] MEDS ORDERED: morphine 2 MG INJ IV STA (20:50)
[2018-10-04] MEDS: LORAZEPAM 2 MG INJ IV PRN (21:05)
[2018-10-04] MEDS: LEVOFLOXACIN 750MG/D5W (PMX) 150 ML IVPB SCH (21:21)
[2018-10-05] VITALS (14 sets, daily range): BP systolic 110–143; BP diastolic 62–88; PULSE 103–153; RESP 18–20
[2018-10-05] MEDS: ALBUTEROL HFA 8 GM INHALER INH SCH ×4 (00:03→18:19)
[2018-10-05] MEDS: LORAZEPAM 2 MG INJ IV PRN ×2 (04:25→21:23)
[2018-10-05] MEDS: morphine 2 MG INJ IV PRN ×4 (04:26→21:22)
[2018-10-05] MEDS: FUROSEMIDE 40 MG INJ IV SCH (06:07)
[2018-10-05] MEDS: PANTOPRAZOLE (EC) 40 MG TAB PO SCH (06:08)
--- NOTE | 2018-10-05 07:50 | CONS ---
Assessment/Plan Assessment/Plan Assessment/Plan (Daily) 1. CHF 2. Severe cardiomyopathy 3. Possible pneumonia 4. Noncompliance and history of smoking and drug use including crystal meth use 5. Dyslipidemia 6. Renal insufficiency Recommendations: Continue with diuresis as tolerated. Monitor renal function and I's and O's - +i/o overnight - increase diureisis today and check bun/creat in am due to RI Continue Aldactone and digoxin Need to keep the digit level less than 1.0 Antibiotic management will be deferred to internal medicine decision We will add low-dose AKANKSHA inhibitor follow-up renal function Consultation Date/Type/Reason Admit Date/Time Oct 02, 2018 at 16:29 Initial Consult Date 10/03/18 Type of Consult Cardiology Requesting Provider: IRINEO MARC Date/Time of Note DATE: 10/05/18 TIME: 07:49 24 HR Interval Summary Free Text/Dictation The patient wtih no chnge Exam/Review of Systems Vital Signs Vitals Vital Signs Date Temp Pulse Resp B/P (MAP) Pulse Ox O2 O2 Flow FiO2 Time Delivery Rate 10/05/18 97.9 104 20 143/79 95 Room Air 07:22 (100) Nasal Cannula 10/05/18 2.0 28 04:15 Intake and Output 10/04/18 10/04/18 10/05/18 1414:59 22:59 06:59 IntakeIntake Total 1000 ml BalanceBalance 1000 ml Labs Result Diagram: 10/04/18 0602 10/04/18 2213 Results 24hrs Laboratory Tests Test 10/04/18 22:13 10/05/18 06:54 Sodium Level 136 Potassium Level 4.5 Chloride Level 95 L Carbon Dioxide Level 26 Anion Gap 15 H Blood Urea Nitrogen 35 H Creatinine 1.45 H Glucose Level 122 Calcium Level 9.3 Phosphorus Level 4.0 Magnesium Level 1.7 Creatine Kinase 102 Albumin 3.7 White Blood Count Pending Red Blood Count Pending Hemoglobin Pending Hematocrit Pending Mean Corpuscular Volume Pending Mean Corpuscular Hemoglobin Pending Mean Corpuscular Hemoglobin Concent Pending Red Cell Distribution Width Pending Platelet Count Pending Mean Platelet Volume Pending Medications Medications Current Medications IV Flush (NS 3 ml) 3 ml PER PROTOCOL IV ; Start 10/02/18 at 18:30 Ondansetron HCl (Zofran Inj) 4 mg Q6H PRN IV NAUSEA/VOMITING; Start 10/02/18 at 18:30 Acetaminophen (Tylenol Tab) 650 mg Q6H PRN PO .PAIN 1-3 OR TEMP; Start 10/02/18 at 18:30 Acetaminophen/ Hydrocodone Bitart ([place] (5/325)) 1 tab Q6H PRN PO .MOD PAIN 4- 6 Last administered on 10/03/18 11:21; Admin Dose 1 TAB; Start 10/02/18 at 18:30 Morphine Sulfate (morphine) 2 mg Q4H PRN IV .SEVERE PAIN 7-10 Last administered on 10/05/18 04:26; Admin Dose 2 MG; Start 10/02/18 at 18:30 Docusate Sodium (Colace) 100 mg Q12H PRN PO .CONSTIPATION; Start 10/02/18 at 18:30 Magnesium Hydroxide (Milk Of Mag) 30 ml DAILY PRN PO .CONSTIPATION; Start 10/02/18 at 18:30 Pantoprazole (Protonix Tab) 40 mg DAILY@06 PO Last administered on 10/05/18at 06:08; Admin Dose 40 MG; Start 10/03/18 at 06:00 Lorazepam (Ativan) 0.5 mg Q6H PRN IV ANXIETY Last administered on 10/05/18at 04: 25; Admin Dose 0.5 MG; Start 10/02/18 at 18:30 Albuterol/ Ipratropium (Duoneb) 3 ml Q4H RESP THERAPY PRN HHN SHORTNESS OF BREATH; Start 10/02/18 at 18:30 Levofloxacin/ Dextrose 150 ml @ 100 mls/hr Q24H IVPB Last administered on 10/04/18at 21:21; Admin Dose 100 MLS/HR; Start 10/02/18 at 20:00 Hydralazine HCl (Apresoline) 10 mg Q6H PRN IV ELEVATED BLOOD PRESSURE; Start 10/02/18 at 18:30 Nitroglycerin (Nitroglycerin (Sl Tab) 0.4 Mg) 1 tab Q5M PRN SL ANGINA; Start 10/02/18 at 18:30 Aspirin (Ecotrin) 325 mg DAILY PO Last administered on 10/04/18at 08:29; Admin Dose 325 MG; Start 10/03/18 at 09:00 Albuterol (Ventolin Hfa) 2 puff Q6 INH Last administered on 10/05/18at 06:06; Admin Dose 2 PUFF; Start 10/03/18 at 00:00 Furosemide (Lasix) 40 mg BID DIURETICS IV Last administered on 10/05/18at 0 6:07; Admin Dose 40 MG; Start 10/03/18 at 06:00 Spironolactone (Aldactone) 50 mg BID PO Last administered on 10/04/18at 08:29; Admin Dose 50 MG; Start 10/03/18 at 21:00 Digoxin (Digoxin) 0.125 mg DAILY@13 PO Last administered on 10/04/18at 12:23; Admin Dose 0.125 MG; Start 10/04/18 at 13:00 Lisinopril (Zestril) 5 mg DAILY PO ; Start 10/05/18 at 09:00 ELSIE SÁNCHEZ MD Oct 05, 2018 07:50
[2018-10-05] MEDS ORDERED: BUMETANIDE 3 MG in DEXTROSE 5% 18 ML IV ONE (09:30)
[2018-10-05] MEDS: SPIRONOLACTONE 50 MG TAB PO SCH ×2 (10:04→21:10)
[2018-10-05] MEDS: ASPIRIN (EC) 325 MG TAB PO SCH (10:04)
[2018-10-05] MEDS: LISINOPRIL 5 MG TAB PO SCH (10:05)
[2018-10-05] MEDS: DIGOXIN 0.125 MG TAB PO SCH (14:02)
--- NOTE | 2018-10-05 15:36 | PN ---
Date/Time of Note Date/Time of Note DATE: 10/05/18 TIME: 15:29 Assessment/Plan VTE Prophylaxis Risk score (from Ns)>0 risk: 5 SCD applied (from Ns): Yes Pharmacological prophylaxis: NA/contraindicated Pharm contraindication: low risk/ambulating Lines/Catheters IV C[facility]ter Type [facility]from [facility] Urinary Cath still in place: No Assessment/Plan Assessment/Plan 48-year-old male coming in with shortness of breath and chest pressure with signs of combination of congestive heart failure exacerbation, anasarca, possible right lower lobe pneumonia. 1. Shortness of breath and chest pressure - again secondary to CHF and likely cirrhosis. Echocardiogram performed in late June 2018 showed ejection fraction 30% at that time. Has presently ruled out for acute coronary syndrome. - Currently appears euvolemic. Will hold lasix. - Monitor ins and outs and daily weights. - Continue Aldactone for now. 2. Possible right lower lobe pneumonia -seen on chest x-ray on admission -Continue Levaquin antibiotics for now. 3. History of hepatitis C with cirrhosis-diagnosed on prior abdominal imaging study on last admission 2 months ago. - Again given his abdominal distention, ordered for and awaiting paracentesis. 4. Smoking history - Counseled on smoking cessation. 5. History of methamphetamine abuse- counseled on drug cessation. 6. Gastrointestinal prophylaxis - PPI. Anticipate discharge tomorrow if Cr stable and pain well controlled and patient breathing room air. Result Diagram: 10/05/18 0654 10/05/18 0654 Subjective 24 Hr Interval Summary Free Text/Dictation No acute overnight events. Patient sitting comfortably in bed off oxygen Ambulating to bathroom without assistance. Reports abdominal stretching pain is slightly improved. Exam/Review of Systems Exam Vitals Vital Signs Date Temp Pulse Resp B/P (MAP) Pulse Ox O2 O2 Flow FiO2 Time Delivery Rate 10/05/18 97.9 104 20 110/83 94 15:04 (92) 10/05/18 Nasal 11:09 Cannula 10/05/18 3.0 07:35 10/05/18 28 04:15 Intake and Output 10/04/18 10/04/18 10/05/18 1515:00 23:00 07:00 IntakeIntake Total 1000 ml BalanceBalance 1000 ml Exam GENERAL: Overweight man sitting in bed, awake and alert. HEENT: Pupils are equal, round, react to light. Extraocular muscles are intact. NECK: Supple. No thyromegaly. LUNGS: less distant breath sounds bilaterally. CARDIOVASCULAR: S1, S2. No rubs or gallops. ABDOMEN: Still distended and firm, tympanic. Hypoactive bowel sounds. No rebo und or guarding, also noted generalized anasarca. MUSCULOSKELETAL:Bilateral nonpitting edema lower extremities. NEUROLOGIC: No focal deficits Medications Medication Current Medications IV Flush (NS 3 ml) 3 ml PER PROTOCOL IV ; Start 10/02/18 at 18:30 Ondansetron HCl (Zofran Inj) 4 mg Q6H PRN IV NAUSEA/VOMITING; Start 10/02/18 at 18:30 Acetaminophen (Tylenol Tab) 650 mg Q6H PRN PO .PAIN 1-3 OR TEMP; Start 10/02/18 at 18:30 Acetaminophen/ Hydrocodone Bitart ([place] (5/325)) 1 tab Q6H PRN PO .MOD PAIN 4- 6 Last administered on 10/03/18at 11:21; Admin Dose 1 TAB; Start 10/02/18 at 18:30 Morphine Sulfate (morphine) 2 mg Q4H PRN IV .SEVERE PAIN 7-10 Last administered on 10/05/18at 14:09; Admin Dose 2 MG; Start 10/02/18 at 18:30 Docusate Sodium (Colace) 100 mg Q12H PRN PO .CONSTIPATION; Start 10/02/18 at 18:30 Magnesium Hydroxide (Milk Of Mag) 30 ml DAILY PRN PO .CONSTIPATION; Start 10/02/18 at 18:30 Pantoprazole (Protonix Tab) 40 mg DAILY@06 PO Last administered on 10/05/18at 06:08; Admin Dose 40 MG; Start 10/03/18 at 06:00 Lorazepam (Ativan) 0.5 mg Q6H PRN IV ANXIETY Last administered on 10/05/18at 04:25; Admin Dose 0.5 MG; Start 10/02/18 at 18:30 Albuterol/ Ipratropium (Duoneb) 3 ml Q4H RESP THERAPY PRN HHN SHORTNESS OF ALISON TH; Start 10/02/18 at 18:30 Levofloxacin/ Dextrose 150 ml @ 100 mls/hr Q24H IVPB Last administered on 10/04/18 21:21; Admin Dose 100 MLS/HR; Start 10/02/18 at 20:00 Hydralazine HCl (Apresoline) 10 mg Q6H PRN IV ELEVATED BLOOD PRESSURE; Start 10/02/18 at 18:30 Nitroglycerin (Nitroglycerin (Sl Tab) 0.4 Mg) 1 tab Q5M PRN SL ANGINA; Start 10/02/18 at 18:30 Aspirin (Ecotrin) 325 mg DAILY PO Last administered on 10/05/18 10:04; Admin Dose 325 MG; Start 10/03/18 at 09:00 Albuterol (Ventolin Hfa) 2 puff Q6 INH Last administered on 10/05/18 10:06; Admin Dose 2 PUFF; Start 10/03/18 at 00:00 Furosemide (Lasix) 40 mg BID DIURETICS IV Last administered on 10/05/18 06:07; Admin Dose 40 MG; Start 10/03/18 at 06:00 Spironolactone (Aldactone) 50 mg BID PO Last administered on 10/05/18 10:04; Admin Dose 50 MG; Start 10/03/18 at 21:00 Digoxin (Digoxin) 0.125 mg DAILY@13 PO Last administered on 10/05/18 14:02; Admin Dose 0.125 MG; Start 10/04/18 at 13:00 Lisinopril (Zestril) 5 mg DAILY PO Last administered on 10/05/18 10:05; Admin Dose 5 MG; Start 10/05/18 at 09:00 JOSE BRADY MD Oct 05, 2018 15:36
[2018-10-05] MEDS: LEVOFLOXACIN 750MG/D5W (PMX) 150 ML IVPB SCH (21:09)
[2018-10-06] VITALS: PULSE 107
[2018-10-06] MEDS: ALBUTEROL HFA 8 GM INHALER INH SCH ×3 (02:10→08:26)
[2018-10-06] MEDS: morphine 2 MG INJ IV PRN ×2 (02:24→08:25)
[2018-10-06 03:28] VITALS: BP 119/79; PULSE 111; RESP 20
[2018-10-06 04:00] VITALS: PULSE 104
[2018-10-06] MEDS: PANTOPRAZOLE (EC) 40 MG TAB PO SCH (05:30)
[2018-10-06 07:19] VITALS: BP 126/92; PULSE 104; RESP 19
--- NOTE | 2018-10-06 08:03 | CONS ---
Assessment/Plan Assessment/Plan Assessment/Plan (Daily) 1. CHF 2. Severe cardiomyopathy 3. Possible pneumonia 4. Noncompliance and history of smoking and drug use including crystal meth use 5. Dyslipidemia 6. Renal insufficiency Recommendations: rx po lasix in am - d/c iv lasix as appears euvolemic Continue Aldactone and digoxin Need to keep the digit level less than 1.0 Antibiotic management will be deferred to internal medicine decision continue AKANKSHA inhibitor follow-up renal function Consultation Date/Type/Reason Admit Date/Time Oct 02, 2018 at 16:29 Initial Consult Date 10/03/18 Type of Consult Cardiology Requesting Provider: IRINEO MARC Date/Time of Note DATE: 10/06/18 TIME: 08:02 24 HR Interval Summary Free Text/Dictation the patient withno cahnge Exam/Review of Systems Vital Signs Vitals Vital Signs Date Temp Pulse Resp B/P (MAP) Pulse Ox O2 O2 Flow FiO2 Time Delivery Rate 10/06/18 98.1 104 19 126/92 95 07:19 (103) 10/06/18 21 03:02 10/05/18 Nasal 3.0 23:04 Cannula Intake and Output 10/05/18 10/05/18 10/06/18 1414:59 22:59 06:59 IntakeIntake Total 1400 ml 1600 ml BalanceBalance 1400 ml 1600 ml Labs Result Diagram: 10/05/18 0654 10/05/18 0654 Medications Medications Current Medications IV Flush (NS 3 ml) 3 ml PER PROTOCOL IV ; Start 10/02/18 at 18:30 Ondansetron HCl (Zofran Inj) 4 mg Q6H PRN IV NAUSEA/VOMITING; Start 10/02/18 at 18:30 Acetaminophen (Tylenol Tab) 650 mg Q6H PRN PO .PAIN 1-3 OR TEMP; Start 10/02/18 at 18:30 Acetaminophen/ Hydrocodone Bitart ([place] (5/325)) 1 tab Q6H PRN PO .MOD PAIN 4- 6 Last administered on 10/03/18at 11:21; Admin Dose 1 TAB; Start 10/02/18 at 18:30 Morphine Sulfate (morphine) 2 mg Q4H PRN IV .SEVERE PAIN 7-10 Last administered on 10/06/18at 02:24; Admin Dose 2 MG; Start 10/02/18 at 18:30 Docusate Sodium (Colace) 100 mg Q12H PRN PO .CONSTIPATION; Start 10/02/18 at 18:30 Magnesium Hydroxide (Milk Of Mag) 30 ml DAILY PRN PO .CONSTIPATION; Start 10/02/18 at 18:30 Pantoprazole (Protonix Tab) 40 mg DAILY@06 PO Last administered on 10/06/18 05:30; Admin Dose 40 MG; Start 10/03/18 at 06:00 Lorazepam (Ativan) 0.5 mg Q6H PRN IV ANXIETY Last administered on 10/05/18 21:23; Admin Dose 0.5 MG; Start 10/02/18 at 18:30 Albuterol/ Ipratropium (Duoneb) 3 ml Q4H RESP THERAPY PRN HHN SHORTNESS OF BREATH; Start 10/02/18 at 18:30 Levofloxacin/ Dextrose 150 ml @ 100 mls/hr Q24H IVPB Last administered on 10/05/18 21:09; Admin Dose 100 MLS/HR; Start 10/02/18 at 20:00 Hydralazine HCl (Apresoline) 10 mg Q6H PRN IV ELEVATED BLOOD PRESSURE; Start 10/02/18 at 18:30 Nitroglycerin (Nitroglycerin (Sl Tab) 0.4 Mg) 1 tab Q5M PRN SL ANGINA; Start 10/02/18 at 18:30 Aspirin (Ecotrin) 325 mg DAILY PO Last administered on 10/05/18 10:04; Admin Dose 325 MG; Start 10/03/18 at 09:00 Albuterol (Ventolin Hfa) 2 puff Q6 INH Last administered on 10/06/18 05:30; Admin Dose 2 PUFF; Start 10/03/18 at 00:00 Spironolactone (Aldactone) 50 mg BID PO Last administered on 10/05/18 21:10; Admin Dose 50 MG; Start 10/03/18 at 21:00 Digoxin (Digoxin) 0.125 mg DAILY@13 PO Last administered on 10/05/18 14:02; Admin Dose 0.125 MG; Start 10/04/18 at 13:00 Lisinopril (Zestril) 5 mg DAILY PO Last administered on 10/05/18 10:05; Admin Dose 5 MG; Start 10/05/18 at 09:00 ELSIE SÁNCHEZ MD Oct 06, 2018 08:03
[2018-10-06] MEDS: ASPIRIN (EC) 325 MG TAB PO SCH (08:25)
[2018-10-06] MEDS: LISINOPRIL 5 MG TAB PO SCH (08:25)
[2018-10-06] MEDS: SPIRONOLACTONE 50 MG TAB PO SCH (08:25)
[2018-10-06 08:43] VITALS: PULSE 107
[2018-10-06 11:19] VITALS: BP 129/82; PULSE 98; RESP 18
[2018-10-06] MEDS ORDERED: ENAL2.5T PO (11:46)
[2018-10-06] MEDS ORDERED: CARV6.2579 PO (11:46)
[2018-10-06] MEDS ORDERED: FURO-109 PO (11:46)
[2018-10-06] MEDS ORDERED: SPIR50TA PO (11:46)
[2018-10-06] MEDS ORDERED: ALBU8.5H8 INH (11:46)
[2018-10-06] MEDS ORDERED: LEVO750T8 PO (11:46)
--- NOTE | 2018-10-06 11:48 | PDOCDIS ---
Discharge Instructions DIAGNOSIS Discharge Diagnosis CHF exacerbation CONDITION [id number] Patient Condition: [id number] Good HOME CARE INSTRUCTIONS: [id number] Diet Instructions: [id number] Regular ACTIVITY: [id number] Activity Restrictions: [id number] No Restrictions FOLLOW UP/APPOINTMENTS Follow-up Plan 1. Take all medications as prescribed. 2. See your primary care doctor in 1-2 weeks. 3. Return to the emergency department if you develop worsening shortness of breath. JOSE BRADY MD Oct 06, 2018 11:48
--- NOTE | 2018-10-06 14:45 | DS ---
Date/Time of Note Date/Time of Note DATE: 10/06/18 TIME: 14:41 Discharge Summary Admission/Discharge Info Admit Date/Time Oct 02, 2018 at 16:29 Discharge Date/Time Oct 06, 2018 at 13:47 Discharge Diagnosis CHF exacerbation Patient Condition: Good Consults Dr. Godfrey, cardiology Procedures None Hx of Present Illness HISTORY OF PRESENT ILLNESS: A 48-year-old male with past medical history of hepatitis C, CHF, IV drug abuse including methamphetamine, cigarette smoking, likely cirrhosis, asthma, who comes in with shortness of breath. Symptoms have been going on for the last 3 to 4 days. He has also noted some increasing abdominal distention and some chest pressure. The patient says he takes Aldactone and Lasix but he still noticed swelling occurring over the last few days worsening. He has had difficulty sleeping at night, symptoms of possible PND and orthopnea. The patient was last here at our hospital in early 08/2018. At that time, he was treated for anasarca secondary to CHF failure and likely cirrhosis. When he came in today, he was now with a lactic acid of 2.6. His creatinine appears to be at baseline at 1.59. He had a chest x-ray today that shows also mild cardiomegaly and a right lower lobe infiltrate and right pleural effusion, signs of possible upper respiratory infection and he got a dose of antibiotics in the ER as well as Lasix IV. Hospital Course The patient does have cirrhosis. He did have abdominal swelling and reported stretching pain; however on abdominal US there was no good pocket to tap. Pain gradually improved with diuresis. He was started on diuresis for pulmonary edema. Soon he was off oxygen, back on room air, ambulating comfortably. For his cirrhosis he was also started on spironolactone for sodium and potassium balance. He did have a questionable infiltrate on CXR so he got levofloxacin inpatient and will finish a 7 day course of this for CAP. Echo showed very reduced EF, 30%. He is already on an ACEi which will be continued. Unclear why a beta karen was never prescribed; I started coreg. Home Meds Active Scripts Carvedilol* (Carvedilol*) 6.25 Mg Tablet, 6.25 MG PO BID, #60 TAB Prov:JOSE BRADY MD 10/06/18 Levofloxacin* (Levofloxacin*) 750 Mg Tablet, 750 MG PO DAILY for 4 Days, #4 TAB Prov:JOSE BRADY MD 10/06/18 Furosemide* (Lasix*) 40 Mg Tablet, 40 MG PO BID, #60 TAB 1 Refill Take with Aldactone at the same time, try to take evening dose of both Lasix and Aldactone before 6 PM as to not effect your sleep Prov:JOSE BRADY MD 10/06/18 Spironolactone* (Aldactone*) 50 Mg Tablet, 100 MG PO BID, #60 TAB 1 Refill Prov:JOSE BRADY MD 10/06/18 Enalapril Maleate* (Enalapril Maleate*) 2.5 Mg Tablet, 2.5 MG PO DAILY, #60 TAB 0 Refills Prov:JOSE BRADY MD 10/06/18 Albuterol Sulfate* (Proair HFA*) 8.5 Gm Hfa.aer.ad, 2 PUFF INH Q6 for SOB, #1 I NHALER Prov:JOSE BRADY MD 10/06/18 Follow-up Plan 1. Take all medications as prescribed. 2. See your primary care doctor in 1-2 weeks. 3. Return to the emergency department if you develop worsening shortness of breath. Primary Care Provider Not On Staff Doctor Time spent on discharge: > 30 minutes Pending Labs Laboratory Tests Test 10/06/18 07:41 White Blood Count 7.7 10^3/ul (4.8-10.8) Red Blood Count 5.04 10^6/ul (4.70-6.10) Hemoglobin 13.0 g/dl (14.0-18.0) Hematocrit 42.4 % (42.0-52.0) Mean Corpuscular Volume 84.1 fl (82.0-101.0) Mean Corpuscular Hemoglobin 25.8 pg (29.0-33.0) Mean Corpuscular Hemoglobin Concent 30.7 g/dl (32.0-37.0) Red Cell Distribution Width 15.0 % (11.5-14.5) Platelet Count 213 10^3/UL (140-415) Mean Platelet Volume 10.2 fl (7.4-10.4) Immature Granulocytes % 0.500 % (0.001-0.429) Neutrophils % 70.1 % (39.0-77.0) Lymphocytes % 13.4 % (15.0-51.0) Monocytes % 12.4 % (0.0-11.0) Eosinophils % 3.1 % (0.0-7.0) Basophils % 0.5 % (0.0-2.0) Nucleated Red Blood Cells % 0.0 /100WBC (0.0-0.0) Immature Granulocytes # 0.040 10^3/ul (0.0-0.031) Neutrophils # 5.4 10^3/ul (1.6-7.5) Lymphocytes # 1.0 10^3/ul (0.8-2.9) Monocytes # 1.0 10^3/ul (0.3-0.9) Eosinophils # 0.2 10^3/ul (0.0-0.5) Basophils # 0.0 10^3/ul (0.0-0.1) Nucleated Red Blood Cells # 0.0 10^3/ul (0.0-0.0) Sodium Level 136 mmol/L (135-144) Potassium Level 4.5 mmol/L (3.5-5.1) Chloride Level 93 mmol/L (97-110) Carbon Dioxide Level 28 mmol/L (21-31) Anion Gap 15 (5-13) Blood Urea Nitrogen 33 mg/dl (7-20) Creatinine 1.28 mg/dl (0.61-1.24) Est Glomerular Filtrat Rate mL/min 59 mL/min (>60) Glucose Level 95 mg/dl (70-220) Calcium Level 9.2 mg/dl (8.4-10.2) JOSE BRADY MD Oct 06, 2018 14:45
== END 2018-10-06 13:47 | disposition home or self-care (01) | DRG 291 ==
LOC: E/R 14:28 → TEL 16:29
PROVIDERS: ADMIT Hospitalist; ATTEND Internal Medicine
DX: I11.0 Hypertensive heart disease with heart failure (principal); J18.9 Pneumonia, unspecified organism; I50.23 Acute on chronic systolic (congestive) heart failure; K74.60 Unspecified cirrhosis of liver; R19.00 Intra-abdominal and pelvic swelling, mass and lump, unspecified site; Z72.0 Tobacco use; R07.9 Chest pain, unspecified; B19.20 Unspecified viral hepatitis C without hepatic coma; F15.10 Other stimulant abuse, uncomplicated; Z91.19 Patient's noncompliance with other medical treatment and regimen; E78.5 Hyperlipidemia, unspecified
CPT/HCPCS: 36415; 71045; 76705; 76870; 80048; 80053; 80061; 80069; 82550; 82553; 83036; 83605; 83735; 83880; 84100; 84439; 84443; 84484; 85025; 85610; 87040; 93005; 96374; 96375; 97161; J0692; J1940; J1956; J2060; J2270; J3370

== ENCOUNTER 2018-11-03 21:37 | Inpatient (IN) | payer OTHER ==
[~2018-11-03] VITALS: Ht 180.3 cm; Wt 120.0 kg
[~2018-11-03 21:37] MED LIST changes: +CARV6.2579 PO; +LEVO750T8 PO
[2018-11-03] MEDS ORDERED: ACETAMINOPHEN 325 MG TAB PO STA (22:19)
[2018-11-03] MEDS ORDERED: ASPI-535 PO (23:04)
[2018-11-03] MEDS ORDERED: CEFEPIME 2GM/50 ML (PMX) 50 ML IVPB STA (23:08)
[2018-11-03] MEDS ORDERED: SODIUM CHLORIDE 0.9% 1L BAG IV* STA (23:08)
[2018-11-03] MEDS ORDERED: VANCOMYCIN 1 GM (PMX) 250 ML IVPB ONE (23:30)
[2018-11-03] MEDS ORDERED: morphine 4 MG/ML VIAL IV STA (23:46)
[2018-11-03] MEDS ORDERED: ONDANSETRON 4 MG INJ IV STA (23:46)
[2018-11-04] VITALS (19 sets, daily range): BP systolic 93–139; BP diastolic 67–104; PULSE 96–130; RESP 18–26; Ht 180.3 cm; Wt 120.0 kg
--- NOTE | 2018-11-04 02:46 | HP ---
Date/Time of Note Date/Time of Note DATE: 11/04/18 TIME: 02:42 Assessment/Plan VTE Prophylaxis SCD applied (from Nsg): Yes Pharmacological prophylaxis: NA/contraindicated Pharm contraindication: low risk/ambulating Lines/Catheters IV Catheter Type (from Nrsg): Saline Lock Assessment/Plan Hospital Course This is a 48-year-old male being admitted to the telemetry floor for: 1. Volume overload: likely multifactorial secondary to CHF/Cirrhosis. IV diuretics, spironolactone, US paracentesis. 2. 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 Lasix 40 mg IV twice daily. Continue spironolactone. Will check an echocardiogram especially in the setting of chest x-ray concerning for possible pericardial effusion. Consult cardiology . Will hold beta-karen given patient's active meth use. 3. Sepsis: Secondary possibly to SBP. Started on Vanco and ceftriaxone. Will order ultrasound paracentesis to assess PMNs cell count Gram stain. Trend lactic acid levels. 4 cirrhosis: Previous liver ultrasound is concerning for liver cirrhosis. Patient has history of hepatitis C. HCV viral load. Continue diuretics as per #1. Ultrasound paracentesis 5. COPD: PRN breathing treatments as indicated, at the current time I do not feel like he is in acute COPD exacerbation and I feel like his breathing symp toms at the current time are more related to volume overload. 6. Hepatitis C: check HCV viral load, check urine drug screen 7. Scrotal swelling: We will obtain a scrotal ultrasound. 8. Illicit drug use: Patient does report recent methamphetamine use, will check urine drug screen. PRN Ativan for withdrawal symptoms. 9. DVT and GI prophylaxis: SCDs, no GI prophylaxis indicated Further treatment strategy will be implemented as per the clinical course. Result Diagram: 11/03/18224411/03/182244 Results 24hrs Laboratory Tests Test 11/03/18 22:45 11/04/18 00:20 White Blood Count 13.2 #H Red Blood Count 5.80 Hemoglobin 14.0 Hematocrit 46.3 Mean Corpuscular Volume 79.8 L Mean Corpuscular Hemoglobin 24.1 L Mean Corpuscular Hemoglobin Concent 30.2 L Red Cell Distribution Width 18.2 #H Platelet Count 164 # Mean Platelet Volume 10.1 Immature Granulocytes % 0.500 H Neutrophils % 79.9 H Lymphocytes % 10.0 L Monocytes % 8.6 Eosinophils % 0.8 Basophils % 0.2 Nucleated Red Blood Cells % 0.0 Immature Granulocytes # 0.070 H Neutrophils # 10.5 H Lymphocytes # 1.3 Monocytes # 1.1 H Eosinophils # 0.1 Basophils # 0.0 Nucleated Red Blood Cells # 0.0 Prothrombin Time 16.2 H Prothrombin Time Ratio 1.3 INR International Normalized Ratio 1.29 Activated Partial Thromboplast Time 29.1 Sodium Level 138 Potassium Level 3.4 L Chloride Level 98 Carbon Dioxide Level 28 Anion Gap 12 Blood Urea Nitrogen 32 H Creatinine 1.14 Est Glomerular Filtrat Rate mL/min > 60 Glucose Level 140 Calcium Level 8.5 Total Bilirubin 1.0 Direct Bilirubin 0.00 Indirect Bilirubin 1.0 Aspartate Amino Transf (AST/SGOT) 43 Alanine Aminotransferase (ALT/SGPT) 87 H Alkaline Phosphatase 142 H Troponin I 0.068 B-Type Natriuretic Peptide 71328 H Total Protein 5.6 L Albumin 3.1 L Globulin 2.50 Albumin/Globulin Ratio 1.24 Urine Color YELLOW Urine Clarity CLEAR Urine pH 5.0 Urine Specific [place] 1.018 Urine Ketones NEGATIVE Urine Nitrite NEGATIVE Urine Bilirubin NEGATIVE Urine Urobilinogen 2+ H Urine Leukocyte Esterase NEGATIVE Urine Hemoglobin NEGATIVE Urine Glucose NEGATIVE Urine Total Protein NEGATIVE HPI/ROS Admit Date/Time Admit Date/Time Hx of Present Illness cc: sob, cp, swellling This is a 48 year old male with Pmhx of mixed systolic/diastolic chf, cirrhosis and illicit drug use who presented to the [facility] ER with chest pain and shortness of breath. Patient also reports worsening lower extremity edema and scrotal edema. He states it has gotten worse over the past few days. He has not been taking his medications regularly. Reports recent meth use. He also reports increased abdominal swelling. allergies: nkda meds: see mar, non compliant ROS Const: As per HPI Eyes : No pain discharge or redness or change in visual acuity ENT: No pain, sore throat, congestion, congestion, dysphagia or discharge Respiratory: As per HPI Cardiovascular: As per HPI GI : As per HPI Genitourinary: As per HPI Musculoskeletal: No joint pain, back pain, neck pain, restricted range of motion in neck or joints Skin: No rash, bruising or hives Neuro: No headache, dizziness, syncope, seizure, focal weakness Endocrine: No polyuria, polydipsia, temperature intolerance Psych: No hallucination, depression, anxiety or suicidal ideation PMH/Family/Social Past Medical History COPD, history of hepatitis C/cirrhosis, systolic/diastolic chf, HLD Medications Current Medications Furosemide (Lasix) 40 mg BID DIURETICS IV ; Start 11/04/18 at 06:00; Status U NV Albumin Human 100 ml @ 100 mls/hr Q1H IV ; Start 11/04/18 at 03:00; Stop 11/04/18 at 04:59; Status UNV Aspirin (Halfprin) 81 mg DAILY PO ; Start 11/04/18 at 09:00; Status UNV Enalapril Maleate (Vasotec) 2.5 mg DAILY PO ; Start 11/04/18 at 09:00; Status UNV Spironolactone (Aldactone) 100 mg BID PO ; Start 11/04/18 at 03:00; Status UNV IV Flush (NS 3 ml) 3 ml PER PROTOCOL IV ; Start 11/04/18 at 03:00; Status UNV Ondansetron HCl (Zofran Inj) 4 mg Q4H PRN IV NAUSEA/VOMITING; Start 11/04/18 at 03:00; Status UNV Acetaminophen (Tylenol Tab) 650 mg Q6H PRN PO .PAIN 1-3 OR TEMP; Start 11/04/18 at 03:00; Status UNV Acetaminophen/ Hydrocodone Bitart ([place] (5/325)) 1 tab Q6H PRN PO .PAIN 4-6; Start 11/04/18 at 03:00; Status UNV Docusate Sodium (Colace) 100 mg Q12H PRN PO .CONSTIPATION; Start 11/04/18 at 03:00; Status UNV Bisacodyl (Dulcolax) 5 mg DAILY PRN PO .CONSTIPATION; Start 11/04/18 at 03:00; Status UNV Pantoprazole (Protonix Tab) 40 mg DAILY@06 PO ; Start 11/04/18 at 06:00; Status UNV Coded Allergies: No Known Allergies (Verified Allergy, Unknown, 11/04/18) Past Surgical History right wrist sx, appendectomy Family History Significant Family History: no pertinent family hx Social History multiple tattoos Smoking Status: Current every day smoker Drug Use: other (IV drug use) Exam/Review of Systems Vital Signs Vitals Vital Signs Date Temp Pulse Resp B/P (MAP) Pulse Ox O2 O2 Flow FiO2 Time Delivery Rate 11/03/18 Nasal 2 22:50 Cannula 11/03/18 120 20 120/77 99 22:50 (91) 11/03/18 100.3 21:53 Exam Exam General: Patient sitting up in bed he does appear to be in mild respiratory distress, he also appears to be agitated HEENT: Atraumatic, normocephalic. The pupils are equal, round and reactive. Extraocular motor are intact Neck: Supple with full range of motion. No rigidity or meningismus Chest: Nontender Lungs: Coarse breath sounds bilaterally, rales, mild respiratory distress Heart: sinus tachycardia Abdomen: Soft , nontender, nondistended , bowel sounds are present. No guarding no rebound tenderness , No masses or organomegaly. No costovertebral temporal angle mass Genitourinary: Scrotal edema and penile swelling Extremities: Bilateral 2+ pitting edema of the lower extremities Neurologic: Normal mental status, speech normal, cranial nerves II through XII are intact, motor and sensory are intact, Skin: Multiple tattoos Psych: Patient does appear to be agitated anxious possibly withdrawing. Additional Comments PROCEDURE: XR Chest, 1 View CLINICAL INDICATION: Sepsis. TECHNIQUE: Frontal view of the chest. COMPARISON: None FINDINGS: LUNGS: Increased pulmonary vascularity bilateral nonspecific interstitial disease. No consolidative infiltrates. PLEURAL SPACE: Small right pleural effusion. No pneumothorax. HEART: Enlarged cardiac silhouette consistent with cardiomegaly and / or pericardial effusion. MEDIASTINUM: Unremarkable. BONES/JOINTS: Unremarkable. IMPRESSION: 1. Enlarged cardiac silhouette consistent with cardiomegaly and / or pericardial effusion. 2. Increased pulmonary vascularity and increased interstitial markings noted. Bilateral air space infiltrates. The findings are consistent with pulmonary edema/CHF. 3. Small right pleural effusion. RPTAT: [facility] Thiago Lazaro Physician Assembly Cleaner Date Time Electronically viewed and signed by Thiago Lazaro Physician Assembly Cleaner on 11/03/2018 23:01 [facility] [place]/ CC: DEDE NAQVI [id number] LULY MCDONALD Nov 04, 2018 02:46
[2018-11-04] MEDS ORDERED: ACETAMINOPHEN 325 MG TAB PO PRN (03:00)
[2018-11-04] MEDS ORDERED: ONDANSETRON 4 MG INJ IV PRN (03:00)
[2018-11-04] MEDS ORDERED: VANCOMYCIN IV PER PHARMACY XX SCH (03:00)
[2018-11-04] MEDS ORDERED: BISACODYL (EC) 5 MG TAB PO PRN (03:00)
[2018-11-04] MEDS ORDERED: DOCUSATE SODIUM 100 MG CAP PO PRN (03:00)
[2018-11-04] MEDS ORDERED: NACL 0.9% 3 ML SYG IV SCH (03:00)
[2018-11-04] MEDS: FUROSEMIDE 40 MG INJ IV SCH ×3 (03:38→17:57)
[2018-11-04] MEDS: HYDROCODONE/APAP (5/325) TAB PO PRN (03:48)
--- NOTE | 2018-11-04 03:48 | ERD ---
ER Documentation Chief Complaint Chief Complaint CP alexandra yesterday, SOB, moderate distress HPI This is a 48-year-old male who checks in with complaints of chest pain since yesterday with associated shortness of breath. Patient has a history of cirrhosis. Reviewing his EMR, he had an echocardiogram showing 30% EF with chronic diastolic dysfunction. Patient has been short of breath over the past 3 days getting progressively worse. He also feels like his abdominal girth is increased as well. ROS All systems reviewed and are negative except as per history of present illness. Medications Home Meds Active Scripts Carvedilol* (Carvedilol*) 6.25 Mg Tablet, 6.25 MG PO BID, #60 TAB Prov:JOSE BRADY MD 10/06/18 Furosemide* (Lasix*) 40 Mg Tablet, 40 MG PO BID, #60 TAB 1 Refill Take with Aldactone at the same time, try to take evening dose of both Lasix and Aldactone before 6 PM as to not effect your sleep Prov:JOSE BRADY MD 10/06/18 Spironolactone* (Aldactone*) 50 Mg Tablet, 100 MG PO BID, #60 TAB 1 Refill Prov:JOSE BRADY MD 10/06/18 Enalapril Maleate* (Enalapril Maleate*) 2.5 Mg Tablet, 2.5 MG PO DAILY, #60 TAB 0 Refills Prov:JOSE BRADY MD 10/06/18 Albuterol Sulfate* (Proair HFA*) 8.5 Gm Hfa.aer.ad, 2 PUFF INH Q6 for SOB, #1 INHALER Prov:JOSE BRADY MD 10/06/18 Reported Medications Aspirin Ec (Aspir 81) 81 Mg Tablet.dr, 81 MG PO DAILY, #30 TAB 11/03/18 Discontinued Scripts Levofloxacin* (Levofloxacin*) 750 Mg Tablet, 750 MG PO DAILY for 4 Days, #4 TAB Prov:JOSE BRADY MD 10/06/18 Allergies Allergies: Coded Allergies: No Known Allergy (Unverified , 10/02/18) PMhx/Soc History of Surgery: Yes (right wrist ORIF, appendectomy, tonsillectomy) Anesthesia Reaction: No Hx Neurological Disorder: No Hx Respiratory Disorders: Yes (asthma, copd) Hx Cardiac Disorders: Yes (CHF) Hx Psychiatric Problems: No Hx Miscellaneous Medical Probl: Yes (hep C, cirrhosis) Hx Alcohol Use: Yes Hx Substance Use: Yes (meth user) Hx Tobacco Use: Yes (1.5 pack/day) Smoking Status: Current every day smoker Physical Exam Vitals Vital Signs Date Temp Pulse Resp B/P (MAP) Pulse Ox O2 O2 Flow FiO2 Time Delivery Rate 11/03/18 Nasal 2 22:50 Cannula 11/03/18 120 20 120/77 99 Nasal 2.0 22:50 (91) Cannula 11/03/18 100.3 122 32 117/85 96 21:53 (96) Physical Exam Const: No acute distress Head: Atraumatic Eyes: Normal Conjunctiva ENT: Normal External Ears, Nose and Mouth. Neck: Full range of motion. No meningismus. Resp: Clear to auscultation bilaterally Cardio: Regular rate and rhythm, no murmurs Abd: Soft, non tender, non distended. Normal bowel sounds Skin: No petechiae or rashes Back: No midline or flank tenderness Ext: No cyanosis, or edema Neur: Awake and alert Psych: Normal Mood and Affect Result Diagram: 11/03/18224411/03/182244 Results 24 hrs Laboratory Tests Test 11/03/18 22:45 11/04/18 00:20 White Blood Count 13.2 10^3/ul Red Blood Count 5.80 10^6/ul Hemoglobin 14.0 g/dl Hematocrit 46.3 % Mean Corpuscular Volume 79.8 fl Mean Corpuscular Hemoglobin 24.1 pg Mean Corpuscular Hemoglobin Concent 30.2 g/dl Red Cell Distribution Width 18.2 % Platelet Count 164 10^3/UL Mean Platelet Volume 10.1 fl Immature Granulocytes % 0.500 % Neutrophils % 79.9 % Lymphocytes % 10.0 % Monocytes % 8.6 % Eosinophils % 0.8 % Basophils % 0.2 % Nucleated Red Blood Cells % 0.0 /100WBC Immature Granulocytes # 0.070 10^3/ul Neutrophils # 10.5 10^3/ul Lymphocytes # 1.3 10^3/ul Monocytes # 1.1 10^3/ul Eosinophils # 0.1 10^3/ul Basophils # 0.0 10^3/ul Nucleated Red Blood Cells # 0.0 10^3/ul Prothrombin Time 16.2 Sec Prothrombin Time Ratio 1.3 INR International Normalized Ratio 1.29 Activated Partial Thromboplast Time 29.1 Sec Sodium Level 138 mmol/L Potassium Level 3.4 mmol/L Chloride Level 98 mmol/L Carbon Dioxide Level 28 mmol/L Anion Gap 12 Blood Urea Nitrogen 32 mg/dl Creatinine 1.14 mg/dl Est Glomerular Filtrat Rate mL/min > 60 mL/min Glucose Level 140 mg/dl Calcium Level 8.5 mg/dl Total Bilirubin 1.0 mg/dl Direct Bilirubin 0.00 mg/dl Indirect Bilirubin 1.0 mg/dl Aspartate Amino Transf (AST/SGOT) 43 IU/L Alanine Aminotransferase (ALT/SGPT) 87 IU/L Alkaline Phosphatase 142 IU/L Troponin I 0.068 ng/ml B-Type Natriuretic Peptide 23421 PG/ML Total Protein 5.6 g/dl Albumin 3.1 g/dl Globulin 2.50 g/dl Albumin/Globulin Ratio 1.24 Urine Color YELLOW Urine Clarity CLEAR Urine pH 5.0 Urine Specific [place] 1.018 Urine Ketones NEGATIVE mg/dL Urine Nitrite NEGATIVE mg/dL Urine Bilirubin NEGATIVE mg/dL Urine Urobilinogen 2+ mg/dL Urine Leukocyte Esterase NEGATIVE [place]/ul Urine Hemoglobin NEGATIVE mg/dL Urine Glucose NEGATIVE mg/dL Urine Total Protein NEGATIVE mg/dl Current Medications Medications Dose Sig/Pravin Start Time Status Last (Trade) Ordered Route PRN Stop Time Admin Dose Reason Admin 650 mg ONCE STAT 11/03/18 DC 11/03/18 Acetaminophen PO 22:19 22:50 (Tylenol 11/03/18 22:21 Tab) Sodium 3,220 ml BOLUS OVER 2 11/03/18 DC Chloride HOURS STAT 23:08 (NS) IV* 11/03/18 23:12 Cefepime HCl 50 ml @ ONCE STAT 11/03/18 DC 11/03/18 100 mls/hr IVPB 23:08 23:44 11/03/18 23:37 Vancomycin 250 ml @ ONCE ONCE 11/03/18 DC 11/04/18 HCl 125 mls/hr IVPB 23:30 00:20 11/04/18 01:29 Morphine 4 mg ONCE STAT 11/03/18 DC 11/04/18 Sulfate IV 23:46 00:33 (morphine) 11/03/18 23:47 Ondansetron 4 mg ONCE STAT 11/03/18 DC 11/04/18 HCl (Zofran IV 23:46 00:33 Inj) 3/19/19 23:47 Furosemide 40 mg BID 11/04/18 DC (Lasix) DIURETICS 06:00 IV 11/04/18 06:00 Albumin 100 ml @ Q1H IV 11/04/18 Human 100 mls/hr 03:00 11/04/18 04:59 Aspirin 81 mg DAILY PO 11/04/18 (Halfprin) 09:00 Enalapril 2.5 mg DAILY PO 11/04/18 Maleate 09:00 (Vasotec) 100 mg BID PO 11/04/18 Spironolacton 03:00 e (Aldactone) IV Flush 3 ml PER 11/04/18 (NS 3 ml) PROTOCOL IV 03:00 Ondansetron 4 mg Q4H PRN 11/04/18 HCl (Zofran IV 03:00 Inj) NAUSEA/VOMITI NG 650 mg Q6H PRN 11/04/18 Acetaminophen PO .PAIN 1-3 03:00 (Tylenol OR TEMP Tab) 1 tab Q6H PRN 11/04/18 Acetaminophen PO .PAIN 4-6 03:00 / Hydrocodone Bitart ([place] (5/325)) Docusate 100 mg Q12H PRN 11/04/18 Sodium PO 03:00 (Colace) .CONSTIPATION Bisacodyl 5 mg DAILY PRN 11/04/18 (Dulcolax) PO 03:00 .CONSTIPATION 40 mg DAILY@06 11/04/18 Pantoprazole PO 06:00 (Protonix Tab) Furosemide 40 mg BID 11/04/18 11/04/18 (Lasix) DIURETICS 03:00 03:38 IV Vancomycin VANCOMYCIN PER 11/04/18 HCl (Vanco PER PHARMACY PROTOCOL XX 03:00 Iv Per Pharmacy) Cefepime HCl 50 ml @ Q12 IVPB 11/04/18 DC 100 mls/hr 09:00 11/04/18 09:00 Ceftriaxone 50 ml @ Q24H IVPB 11/04/18 Sodium 100 mls/hr 09:00 Procedures/[facility] Emergency department course: Patient seen and evaluated triage was placed in bed from the evaluation. Had blood work done. A stat EKG stat chest x-ray. Serial exams are stable. Initial lactic acid was elevated, however I feel this is likely secondary to underlying liver dysfunction. Antibiotics were given for the possibility of spontaneous bacterial peritonitis however, I do not believe that this patient has sepsis therefore septic fluids were withheld Diagnostic data: EKG: Rate/Rhythm: [Normal Sinus Rhythm] QRS, ST, T-waves: [No changes consistent w/ acute ischemia] Impression: [No evidence of ischemia or arrhythmia] Chest X-ray 1V Interpreted by me: Soft Tissue: No acute abnormalities Bones: No acute abnormalities Mediastinum/Cardiac Silhouette/Lungs: Increased interstitial fluid markings impression: CHF Medical decision making: Patient's heart failure symptoms is concerning for acute decompensation and will require inpatient workup and monitoring. Further w/u for ischemia, arrhythmia, PE or dissection will be deferred to the inpatient team. Accepting Care Team: Current data and ongoing care discussed. Time: 2 AM Primary Provider: Dr. Woodard Consulting: [[place]] Outstanding Data: none Departure Diagnosis: Primary Impression: Acute pulmonary edema Additional Impressions: Ascites Ascites type: due to alcoholic cirrhosis Qualified Codes: K70.31 - Alcoholic cirrhosis of liver with ascites Liver dysfunction Condition: Serious DEDE NAQVI Nov 04, 2018 03:48
[2018-11-04] MEDS ORDERED: CALCIUM GLUCONATE 10% 1 GM in DEXTROSE 5% 100 ML IVPB ONE (04:30)
[2018-11-04] MEDS ORDERED: POTASSIUM CHLORIDE (SR) 20 MEQ TAB PO STA (04:41)
[2018-11-04] MEDS: LEVALBUTEROL (NEB) 1.25 MG/0.5 ML AMP HHN PRN ×2 (04:48→22:51)
[2018-11-04] MEDS ORDERED: PANTOPRAZOLE (EC) 40 MG TAB PO ONE (04:50)
[2018-11-04] MEDS: ALBUMIN HUMAN 25% 100 ML IV SCH ×2 (05:09→06:48)
[2018-11-04] MEDS: PANTOPRAZOLE (EC) 40 MG TAB PO SCH (05:11)
[2018-11-04] MEDS: SPIRONOLACTONE 50 MG TAB PO SCH ×3 (05:11→20:38)
[2018-11-04] MEDS: morphine 2 MG INJ IV PRN ×3 (05:16→22:48)
[2018-11-04] MEDS ORDERED: FUROSEMIDE 40 MG INJ IV SCH (06:00)
[2018-11-04] MEDS ORDERED: FUROSEMIDE 40 MG INJ IV ONE (08:00)
[2018-11-04] MEDS ORDERED: morphine 4 MG/ML VIAL ONE (08:11)
[2018-11-04] MEDS ORDERED: morphine 4 MG/ML VIAL IV STA (08:14)
[2018-11-04] MEDS ORDERED: VANCOMYCIN HCL 1.5 GM in SOD CHLORIDE 0.9% 250 ML IVPB SCH (09:00)
[2018-11-04] MEDS ORDERED: CEFEPIME 1GM/50 ML (PMX) 50 ML IVPB SCH (09:00)
[2018-11-04] MEDS: ENALAPRIL 2.5 MG TAB PO SCH (09:00)
[2018-11-04] MEDS ORDERED: CEFTRIAXONE 2 GM/50 ML (PMX) 50 ML IVPB SCH (09:00)
--- NOTE | 2018-11-04 09:10 | RADRPT ---
Echocardiogram Report Patient Name: Óscar PINA ID: [id number] : 1970 (48y 6m)Study Date: 11/04/2018 7:31:48 AM Gender: MAccession #: [id number] Tech: BradyDillon Quiñonez [facility] Location: [facility] Ref.Physician: LULY MCDONALD Height(Cm): BSA: Weight(Kg): Quality: AdequateAccount #: Procedures: Echocardiographic Report: Transthoracic echocardiogram with complete 2D, M-Mode, and doppler examination. Indications: Congestive Heart Failure. Measurements: 2D/M Mode Doppler Measurement Value Normal Range Measurement Value Normal Range LVIDd 2D 5.5 [ 4.2 - 5.8 ] cm AV Peak Simon 0.8 [ 100.0 - 170.0 ] cm/sec LVIDs 2D 5.2 [ 2.5 - 4.0 ] cm AV Peak PG 3.0 [ 2.0 - 9.0 ] mmHg LVPWd 2D 1.3 [ 0.6 - 1.0 ] cm LVOT Peak Simon 0.7 [ 70.0 - 110.0 ] cm/sec IVSd 2D 1.1 [ 0.6 - 1.0 ] cm LVOT Peak PG 2.0 [ 2.0 - 6.0 ] mmHg AoR Diam 2D 3.1 [ 2.6 - 3.4 ] cm MV E Peak Simon 0.9 [ 60.0 - 130.0 ] cm/sec EDV 2D 145.0 [ 62.0 - 150.0 ] ml MV A Peak Simon 0.3 [ 100.0 - 120.0 ] cm/sec ESV 2D 127.0 [ 21.0 - 61.0 ] ml MV E/A 2.7 [ 0.8 - 1.5 ] ratio EF 2D 12.4 [ 52.0 - 72.0 ] percent MV Decel Time 92 [ 104 - 258 ] msec LA Dimen 2D 4.6 [ 3.0 - 4.0 ] cm Lat E` Simon 0.1 [ 10.0 - 15.0 ] cm/sec Lateral E/E` 13.4 [ 1.0 - 2.0 ] ratio MV E/A 2.7 [ 0.8 - 1.5 ] ratio TR Peak Simon 2.4 [ 100.0 - 280.0 ] cm/sec TR Peak PG 22.0 mmHg RVSP 32.0 [ 10.0 - 36.0 ] mmHg RA Pressure 10.0 mmHg Findings: Left Ventricle: Normal left ventricular cavity size. Mild concentric left ventricular hypertrophy. Mild enlargement of left ventricle cavity. Severe global left ventricular systolic dysfunction. Ejection fraction is visually estimated at 15-20 %. Tissue Doppler/Mitral Doppler indices are consistent with restrictive physiology with markedly elevated left atrial pressure (Stage III-IV diastolic dysfunction). Right Ventricle: Normal right ventricular size. Normal right ventricular systolic function. Linear artifact in right ventricle suggestive of catheter, pacer lead, or ICD lead. Left Atrium: There is mild enlargement of left atrium. Right Atrium: The right atrium is normal in size. Mitral Valve: Mitral valve leaflets appear mildly thickened. Mild mitral annular calcification. Mild mitral valve regurgitation. Aortic Valve: Normal appearance of the aortic valve. No significant aortic stenosis or insufficiency. Tricuspid Valve: Normal appearance of the tricuspid valve. Estimated peak PA systolic pressure 32 mmHg. There is mild tricuspid regurgitation. Pulmonic Valve: Normal pulmonic valve appearance. There is trace pulmonic regurgitation. Pericardium: Normal pericardium with no significant pericardial effusion. Aorta: Normal aortic root. IVC: Dilated IVC without respiratory collapse consistent with elevated right atrial pressure. Conclusions: Normal left ventricular cavity size. Mild concentric left ventricular hypertrophy. Mild enlargement of left ventricle cavity. Severe global left ventricular systolic dysfunction. Ejection fraction is visually estimated at 15-20 %. Tissue Doppler/Mitral Doppler indices are consistent with restrictive physiology with markedly elevated left atrial pressure (Stage III-IV diastolic dysfunction). There is mild enlargement of left atrium. Mitral valve leaflets appear mildly thickened. Mild mitral annular calcification. Mild mitral valve regurgitation. Normal appearance of the aortic valve. No significant aortic stenosis or insufficiency. Normal appearance of the tricuspid valve. Estimated peak PA systolic pressure 32 mmHg. There is mild tricuspid regurgitation. Dilated IVC without respiratory collapse consistent with elevated right atrial pressure. Electronically Signed By: Sabas Godfrey 2018-11-04 09:10:03 PDT
--- NOTE | 2018-11-04 09:10 | PN ---
Date/Time of Note Date/Time of Note DATE: 11/04/18 TIME: 09:10 Assessment/Plan VTE Prophylaxis SCD applied (from Nsg): Yes Pharmacological prophylaxis: NA/contraindicated Pharm contraindication: low risk/ambulating Lines/Catheters IV Catheter Type (from Nrsg): Peripheral IV Urinary Cath still in place: No Assessment/Plan Assessment/Plan 1. Acute shortness of breath, multifactorial - tolerating high flow and maintaining saturations 2. Acute on chronic systolic and diastolic heart failure - ECHO results noted and EF 15-20% which is a decline from 06/2018 - On Lasix BID and given an extra dose this am. - On spironolactone as well - will avoid using BB given recent meth use - Cardiology consultation placed for further recommendations 3. Sepsis - possible SBP but unable to tap abd this am given only with small pockets of fluid - LA normal - continue IV antibiotics - cultures ordered 4. Liver cirrhosis secondary to Hep C - continue diuretics - will need outpatient therapy 5. COPD - PRN neb tx for SOB 6. Diffuse anasarca - secondary to #2 7. Illicit drug use - reports recent methamphetamine use - Utox ordered - supportive care for withdrawal sx 8. Disposition - Continue close monitoring in ICU given respiratory distress and tachycardia >45 minutes of critical care time spent with patient Result Diagram: 11/04/18 0402 11/04/18 0402 Results 24hrs Laboratory Tests Test 11/03/18 22:45 11/03/18 23:07 11/04/18 00:20 11/04/18 04:02 White Blood Count 13.2 #H 13.3 H Red Blood Count 5.80 6.21 H Hemoglobin 14.0 14.8 Hematocrit 46.3 50.4 Mean Corpuscular 79.8 L 81.2 L Volume Mean Corpuscular 24.1 L 23.8 L Hemoglobin Mean Corpuscular 30.2 L 29.4 L Hemoglobin Concen t Red Cell 18.2 #H 18.6 H Distribution Width Platelet Count 164 # 181 Mean Platelet 10.1 10.0 Volume Immature 0.500 H 0.600 H Granulocytes % Neutrophils % 79.9 H 75.4 Lymphocytes % 10.0 L 14.1 L Monocytes % 8.6 8.4 Eosinophils % 0.8 1.3 Basophils % 0.2 0.2 Nucleated Red 0.0 0.0 Blood Cells % Immature 0.070 H 0.080 H Granulocytes # Neutrophils # 10.5 H 10.0 H Lymphocytes # 1.3 1.9 Monocytes # 1.1 H 1.1 H Eosinophils # 0.1 0.2 Basophils # 0.0 0.0 Nucleated Red 0.0 0.0 Blood Cells # Prothrombin Time 16.2 H Prothrombin Time 1.3 Ratio INR International 1.29 Normalized Ratio Activated 29.1 Partial Thrombopl ast Time Sodium Level 138 139 Potassium Level 3.4 L 3.8 Chloride Level 98 100 Carbon Dioxide 28 28 Level Anion Gap 12 11 Blood Urea 32 H 33 H Nitrogen Creatinine 1.14 1.18 Est Glomerular > 60 > 60 Filtrat Rate mL/min Glucose Level 140 146 Calcium Level 8.5 8.4 Total Bilirubin 1.0 1.2 Direct Bilirubin 0.00 0.00 Indirect 1.0 1.2 H Bilirubin Aspartate Amino 43 45 Transf (AST/SGOT) Alanine 87 H 91 H Aminotransferase (ALT/SGPT) Alkaline 142 H 153 H Phosphatase Troponin I 0.068 0.070 B-Type 08794 H Natriuretic Peptide Total Protein 5.6 L 5.6 L Albumin 3.1 L 3.2 L Globulin 2.50 2.40 Albumin/Globulin 1.24 1.33 Ratio POC Venous 2.1 *H Lactate Urine Color YELLOW Urine Clarity CLEAR Urine pH 5.0 Urine Specific 1.018 [place] Urine Ketones NEGATIVE Urine Nitrite NEGATIVE Urine Bilirubin NEGATIVE Urine 2+ H Urobilinogen Urine Leukocyte NEGATIVE Esterase Urine Hemoglobin NEGATIVE Urine Glucose NEGATIVE Urine Total NEGATIVE Protein Lactic Acid Level 1.6 Creatine Kinase 101 Creatine Kinase 4.5 Index Creatinine Kinase 4.59 H MB (Mass) Test 11/04/18 07:50 11/04/18 07:52 Bedside Glucose 136 Blood Gas Blood arterial Specimen Source Arterial Blood 10/28/2018 8:05:5 Date Drawn 0 AM Arterial Blood pH 7.414 (Temp corrected) Arterial Blood 35.6 pCO2 (Temp correct) Arterial Blood 436.7 H pO2 (Temp corrected) Arterial Blood 22.3 HCO3 Arterial Blood -1.6 Base Excess Arterial Blood 99.6 H Oxygen Saturation [place] Test ACCEPTAB Arterial Blood Left Radial Gas Puncture Site Arterial 1.3 Blood Carboxyhemo globin Arterial Blood 0.2 Methemoglobin Blood Gas A-a O2 240.7 H Differential Oxyhemoglobin 98.1 Percent Blood Gas 37.0 Temperature Blood Gas MASK - NRB Modality FiO2 100.0 Blood Gas DT Notified Whom Blood Gas 11/04/2018 8:14:4 Notified Time 8 AM Subjective 24 Hr Interval Summary Free Text/Dictation 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 Per patient, he felt like someone was sitting of his chest. Noted to be diaphoretic with accessory muscle use. He was able to answer all questions appropriately. Given persistent tachycardia, diaphoresis, and lethargy, he was transferred to ICU for close monitoring. Exam/Review of Systems Exam Vitals Vital Signs Date Temp Pulse Resp B/P (MAP) Pulse Ox O2 O2 Flow FiO2 Time Delivery Rate 11/04/18 136 08:24 11/04/18 98.6 18 121/83 96 Nasal 07:21 (96) Cannula 11/04/18 3.0 05:00 Intake and Output 11/03/18 11/03/18 11/04/18 1515:00 23:00 07:00 IntakeIntake Total 610 ml OutputOutput Total 500 ml BalanceBalance 110 ml Exam General: respiratory distress, diaphoretic, accessory muscle use Neck: Supple with full range of motion. Chest: Nontender Lungs: Coarse breath sounds bilaterally, no wheezing, accessory muscle use Heart: S1, S2, regular rhythm, tachycardia, no murmurs Abdomen: Soft , mildly tender, distended, no rebound or guarding, +BS Extremities: Bilateral 2+ pitting edema of the lower extremities Skin: Multiple tattoos, abrasions and scabs on LE Psych: anxious Results Results 24hrs Laboratory Tests Test 11/03/18 22:45 11/03/18 23:07 11/04/18 00:20 11/04/18 04:02 White Blood Count 13.2 #H 13.3 H Red Blood Count 5.80 6.21 H Hemoglobin 14.0 14.8 Hematocrit 46.3 50.4 Mean Corpuscular 79.8 L 81.2 L Volume Mean Corpuscular 24.1 L 23.8 L Hemoglobin Mean Corpuscular 30.2 L 29.4 L Hemoglobin Concen t Red Cell 18.2 #H 18.6 H Distribution Width Platelet Count 164 # 181 Mean Platelet 10.1 10.0 Volume Immature 0.500 H 0.600 H Granulocytes % Neutrophils % 79.9 H 75.4 Lymphocytes % 10.0 L 14.1 L Monocytes % 8.6 8.4 Eosinophils % 0.8 1.3 Basophils % 0.2 0.2 Nucleated Red 0.0 0.0 Blood Cells % Immature 0.070 H 0.080 H Granulocytes # Neutrophils # 10.5 H 10.0 H Lymphocytes # 1.3 1.9 Monocytes # 1.1 H 1.1 H Eosinophils # 0.1 0.2 Basophils # 0.0 0.0 Nucleated Red 0.0 0.0 Blood Cells # Prothrombin Time 16.2 H Prothrombin Time 1.3 Ratio INR International 1.29 Normalized Ratio Activated 29.1 Partial Thrombopl ast Time Sodium Level 138 139 Potassium Level 3.4 L 3.8 Chloride Level 98 100 Carbon Dioxide 28 28 Level Anion Gap 12 11 Blood Urea 32 H 33 H Nitrogen Creatinine 1.14 1.18 Est Glomerular > 60 > 60 Filtrat Rate mL/min Glucose Level 140 146 Calcium Level 8.5 8.4 Total Bilirubin 1.0 1.2 Direct Bilirubin 0.00 0.00 Indirect 1.0 1.2 H Bilirubin Aspartate Amino 43 45 Transf (AST/SGOT) Alanine 87 H 91 H Aminotransferase (ALT/SGPT) Alkaline 142 H 153 H Phosphatase Troponin I 0.068 0.070 B-Type 45518 H Natriuretic Peptide Total Protein 5.6 L 5.6 L Albumin 3.1 L 3.2 L Globulin 2.50 2.40 Albumin/Globulin 1.24 1.33 Ratio POC Venous 2.1 *H Lactate Urine Color YELLOW Urine Clarity CLEAR Urine pH 5.0 Urine Specific 1.018 [place] Urine Ketones NEGATIVE Urine Nitrite NEGATIVE Urine Bilirubin NEGATIVE Urine 2+ H Urobilinogen Urine Leukocyte NEGATIVE Esterase Urine Hemoglobin NEGATIVE Urine Glucose NEGATIVE Urine Total NEGATIVE Protein Lactic Acid Level 1.6 Creatine Kinase 101 Creatine Kinase 4.5 Index Creatinine Kinase 4.59 H MB (Mass) Test 11/04/18 07:50 11/04/18 07:52 Bedside Glucose 136 Blood Gas Blood arterial Specimen Source Arterial Blood 10/28/2018 8:05:5 Date Drawn 0 AM Arterial Blood pH 7.414 (Temp corrected) Arterial Blood 35.6 pCO2 (Temp correct) Arterial Blood 436.7 H pO2 (Temp corrected) Arterial Blood 22.3 HCO3 Arterial Blood -1.6 Base Excess Arterial Blood 99.6 H Oxygen Saturation [place] Test ACCEPTAB Arterial Blood Left Radial Gas Puncture Site Arterial 1.3 Blood Carboxyhemo globin Arterial Blood 0.2 Methemoglobin Blood Gas A-a O2 240.7 H Differential Oxyhemoglobin 98.1 Percent Blood Gas 37.0 Temperature Blood Gas MASK - NRB Modality FiO2 100.0 Blood Gas DT Notified Whom Blood Gas 11/04/2018 8:14:4 Notified Time 8 AM Medications Medication Current Medications Aspirin (Halfprin) 81 mg DAILY PO ; Start 11/04/18 at 09:00 Enalapril Maleate (Vasotec) 2.5 mg DAILY PO ; Start 11/04/18 at 09:00 Spironolactone (Aldactone) 100 mg BID PO Last administered on 11/04/18at 05:11; Admin Dose 100 MG; Start 11/04/18 at 03:00 IV Flush (NS 3 ml) 3 ml PER PROTOCOL IV ; Start 11/04/18 at 03:00 Ondansetron HCl (Zofran Inj) 4 mg Q4H PRN IV NAUSEA/VOMITING Last administered on 11/04/18at 08:07; Admin Dose 4 MG; Start 11/04/18 at 03:00 Acetaminophen (Tylenol Tab) 650 mg Q6H PRN PO .PAIN 1-3 OR TEMP; Start 11/04/18 at 03:00 Acetaminophen/ Hydrocodone Bitart ([place] (5/325)) 1 tab Q6H PRN PO .PAIN 4-6 Last administered on 11/04/18at 03:48; Admin Dose 1 TAB; Start 11/04/18 at 03:00 Docusate Sodium (Colace) 100 mg Q12H PRN PO .CONSTIPATION; Start 11/04/18 at 03:00 Bisacodyl (Dulcolax) 5 mg DAILY PRN PO .CONSTIPATION; Start 11/04/18 at 03:00 Pantoprazole (Protonix Tab) 40 mg DAILY@06 PO Last administered on 11/04/18at 05:11; Admin Dose 40 MG; Start 11/04/18 at 06:00 Furosemide (Lasix) 40 mg BID DIURETICS IV Last administered on 11/04/18at 05:11; Admin Dose 40 MG; Start 11/04/18 at 03:00 Vancomycin HCl (Vanco Iv Per Pharmacy) VANCOMYCIN PER PHARMACY PER PROTOCOL XX ; Start 11/04/18 at 03:00 Ceftriaxone Sodium 50 ml @ 100 mls/hr Q24H IVPB ; Start 11/04/18 at 09:00 Levalbuterol (Xopenex Neb) 1.25 mg Q4H RESP THERAPY PRN HHN SHORTNESS OF BREATH Last administered on 11/04/18at 04:48; Admin Dose 1.25 MG; Start 11/04/18 at 04:00 Morphine Sulfate (morphine) 2 mg Q3H PRN IV SEVERE PAIN LEVEL 7-10 Last administered on 11/04/18at 05:16; Admin Dose 2 MG; Start 11/04/18 at 05:00 Vancomycin HCl 1.5 gm/Sodium Chloride 250 ml @ 83.333 mls/ hr Q12H IVPB ; St art 11/04/18 at 09:00 Lidocaine (Lidocaine 2% Urojet) 20 ml ONCE ONCE MM ; Start 11/04/18 at 09:30; Stop 11/04/18 at 09:31 DAMEON MADRIGAL MD Nov 04, 2018 09:10
[2018-11-04] MEDS ORDERED: LIDOCAINE 2% 20 ML UROJET SYRINGE MM ONE (09:30)
[2018-11-04] MEDS ORDERED: DICYCLOMINE 10 MG CAP PO PRN (10:00)
[2018-11-04] MEDS ORDERED: LORAZEPAM 2 MG INJ IV PRN (10:00)
[2018-11-04] MEDS: ASPIRIN (EC) 81 MG TAB PO SCH (11:42)
[2018-11-04] MEDS ORDERED: LIDOCAINE 2% JEL.PF.APP 5 ML UROJET SYRINGE MM ONE (12:30)
[2018-11-04] MEDS ORDERED: morphine 2 MG INJ ONE (12:54)
[2018-11-04] MEDS: LORAZEPAM 2 MG INJ IV PRN (14:21)
--- NOTE | 2018-11-04 16:24 | CONS ---
Assessment/Plan Cardiology NYHA: II Heart Failure Type: Acute on Chronic Heart Failure Type: Systolic Assessment/Plan Hospital Course (Demo Recall) Acute decompensated systolic congestive heart failure Cardiomyopathy with left ventricular ejection fraction 50-20% Respiratory failure, on high flow oxygen Recent methamphetamine use Possible sepsis -As per friend at bedside, patient with recent methamphetamine use. -Serial troponins have been negative. -We will continue IV diuretics and titrate as renal function and blood pressure permits -Continue beta-karen and AKANKSHA inhibitor as tolerated -Antibiotics as per primary team -There is also concern for withdrawal from illicit drugs, patient is receiving IV Ativan, monitor respiratory status closely -Of importance is cessation of illicit drug use Consultation Date/Type/Reason Admit Date/Time Type of Consult Cardiology Reason for Consultation Shortness of breath Date/Time of Note DATE: 11/04/18 TIME: 16:14 Hx of Present Illness This is a 48-year-old male with known history of cardiomyopathy, methamphetamine use who presents with progressive worsening shortness of breath. As per medical records and friend at bedside, patient has been more short of breath over the past few days. Patient also has been coughing unknown and productive. Patient was on the telemetry floor and given worsening respiratory status, was transferred to the ICU. Patient has received sedatives and is currently sle eping. As per the friend at bedside, last methamphetamine use was a couple days ago. Unable to be performed at the current time given patient's mental status Past Medical History Medical History: congestive heart failure, hypertension Home Meds Active Scripts Carvedilol* (Carvedilol*) 6.25 Mg Tablet, 6.25 MG PO BID, #60 TAB Prov:JOSE BRADY MD 10/06/18 Furosemide* (Lasix*) 40 Mg Tablet, 40 MG PO BID, #60 TAB 1 Refill Take with Aldactone at the same time, try to take evening dose of both Lasix and Aldactone before 6 PM as to not effect your sleep Prov:JOSE BRADY MD 10/06/18 Spironolactone* (Aldactone*) 50 Mg Tablet, 100 MG PO BID, #60 TAB 1 Refill Prov:JOSE BRADY MD 10/06/18 Enalapril Maleate* (Enalapril Maleate*) 2.5 Mg Tablet, 2.5 MG PO DAILY, #60 TAB 0 Refills Prov:JOSE BRADY MD 10/06/18 Albuterol Sulfate* (Proair HFA*) 8.5 Gm Hfa.aer.ad, 2 PUFF INH Q6 for SOB, #1 INHALER Prov:JOSE BRADY MD 10/06/18 Reported Medications Aspirin Ec (Aspir 81) 81 Mg Tablet.dr, 81 MG PO DAILY, #30 TAB 11/03/18 Discontinued Scripts Levofloxacin* (Levofloxacin*) 750 Mg Tablet, 750 MG PO DAILY for 4 Days, #4 TAB Prov:JOSE BRADY MD 10/06/18 Medications Current Medications Aspirin (Halfprin) 81 mg DAILY PO Last administered on 11/04/18at 11:42; Admin Dose 81 MG; Start 11/04/18 at 09:00 Enalapril Maleate (Vasotec) 2.5 mg DAILY PO ; Start 11/04/18 at 09:00 Spironolactone (Aldactone) 100 mg BID PO Last administered on 11/04/18at 11:42; Admin Dose 100 MG; Start 11/04/18 at 03:00 IV Flush (NS 3 ml) 3 ml PER PROTOCOL IV ; Start 11/04/18 at 03:00 Ondansetron HCl (Zofran Inj) 4 mg Q4H PRN IV NAUSEA/VOMITING Last administered on 11/04/18at 08:07; Admin Dose 4 MG; Start 11/04/18 at 03:00 Acetaminophen (Tylenol Tab) 650 mg Q6H PRN PO .PAIN 1-3 OR TEMP; Start 11/04/18 at 03:00 Acetaminophen/ Hydrocodone Bitart ([place] (5/325)) 1 tab Q6H PRN PO .PAIN 4-6 Last administered on 11/04/18at 03:48; Admin Dose 1 TAB; Start 11/04/18 at 03:00 Docusate Sodium (Colace) 100 mg Q12H PRN PO .CONSTIPATION; Start 11/04/18 at 03:00 Bisacodyl (Dulcolax) 5 mg DAILY PRN PO .CONSTIPATION; Start 11/04/18 at 03:00 Pantoprazole (Protonix Tab) 40 mg DAILY@06 PO Last administered on 11/04/18at 05:11; Admin Dose 40 MG; Start 11/04/18 at 06:00 Furosemide (Lasix) 40 mg BID DIURETICS IV Last administered on 11/04/18at 05:11; Admin Dose 40 MG; Start 11/04/18 at 03:00 Vancomycin HCl (Vanco Iv Per Pharmacy) VANCOMYCIN PER PHARMACY PER PROTOCOL XX ; Start 11/04/18 at 03:00 Ceftriaxone Sodium 50 ml @ 100 mls/hr Q24H IVPB Last administered on 11/04/18at 11:41; Admin Dose 100 MLS/HR; Start 11/04/18 at 09:00 Levalbuterol (Xopenex Neb) 1.25 mg Q4H RESP THERAPY PRN HHN SHORTNESS OF BREATH Last administered on 11/04/18at 04:48; Admin Dose 1.25 MG; Start 11/04/18 at 04:00 Morphine Sulfate (morphine) 2 mg Q3H PRN IV SEVERE PAIN LEVEL 7-10 Last administered on 11/04/18at 12:57; Admin Dose 2 MG; Start 11/04/18 at 05:00 Lorazepam (Ativan) 1 mg Q10MIN PRN IV seizures/withdrawal Last administered on 11/04/18at 14:21; Admin Dose 1 MG; Start 11/04/18 at 10:00 Dicyclomine HCl (Bentyl) 10 mg QID PRN PO abdominal cramps; Start 11/04/18 at 10:00 Clonidine (Catapres) 0.1 mg Q6H PRN PO SBP >160; Start 11/04/18 at 10:00 Carvedilol (Coreg) 6.25 mg BID PO Last administered on 11/04/18at 12:51; Admin Dose 6.25 MG; Start 11/04/18 at 10:00 Vancomycin HCl 1.5 gm/Sodium Chloride 250 ml @ 83.333 mls/ hr Q12H IVPB ; Start 11/05/18 at 01:00 Lorazepam (Ativan) 0.5 mg Q4H PRN IV anxiety, agitation; Start 11/04/18 at 16:00 Allergies: Coded Allergies: No Known Allergies (Verified Allergy, Unknown, 11/04/18) Social History Smoking Status: Current every day smoker Drug Use: other (Methamphetamine use) Exam/Review of Systems Vital Signs Vitals Vital Signs Date Temp Pulse Resp B/P (MAP) Pulse Ox O2 O2 Flow FiO2 Time Delivery Rate 3/20/19 Vapotherm 14:00 11/04/18 100 30 14:00 11/04/18 119 12:00 11/04/18 97.8 20 124/88 11:14 (100) 11/04/18 3.0 08:40 Intake and Output 11/03/18 11/03/18 11/04/18 1515:00 23:00 07:00 IntakeIntake Total 610 ml OutputOutput Total 500 ml BalanceBalance 110 ml Exam Exam In ICU, not responsive to verbal stimuli, appears sedated, friend at bedside, on high flow oxygen Head: normocephalic Respiratory: other (Coarse breath sounds bilaterally, mild scattered crackles) Cardiovascular: regular rate and rhythm (S1-S2 heard) Gastrointestinal: soft, non-tender, bowel sounds Extremities: edema Labs Result Diagram: 11/04/18 0402 11/04/18 0402 Results 24hrs Laboratory Tests Test 11/03/18 22:45 11/03/18 23:07 11/04/18 00:20 11/04/18 04:02 White Blood Count 13.2 #H 13.3 H Red Blood Count 5.80 6.21 H Hemoglobin 14.0 14.8 Hematocrit 46.3 50.4 Mean Corpuscular 79.8 L 81.2 L Volume Mean Corpuscular 24.1 L 23.8 L Hemoglobin Mean Corpuscular 30.2 L 29.4 L Hemoglobin Concen t Red Cell 18.2 #H 18.6 H Distribution Width Platelet Count 164 # 181 Mean Platelet 10.1 10.0 Volume Immature 0.500 H 0.600 H Granulocytes % Neutrophils % 79.9 H 75.4 Lymphocytes % 10.0 L 14.1 L Monocytes % 8.6 8.4 Eosinophils % 0.8 1.3 Basophils % 0.2 0.2 Nucleated Red 0.0 0.0 Blood Cells % Immature 0.070 H 0.080 H Granulocytes # Neutrophils # 10.5 H 10.0 H Lymphocytes # 1.3 1.9 Monocytes # 1.1 H 1.1 H Eosinophils # 0.1 0.2 Basophils # 0.0 0.0 Nucleated Red 0.0 0.0 Blood Cells # Prothrombin Time 16.2 H Prothrombin Time 1.3 Ratio INR International 1.29 Normalized Ratio Activated 29.1 Partial Thrombopl ast Time Sodium Level 138 139 Potassium Level 3.4 L 3.8 Chloride Level 98 100 Carbon Dioxide 28 28 Level Anion Gap 12 11 Blood Urea 32 H 33 H Nitrogen Creatinine 1.14 1.18 Est Glomerular > 60 > 60 Filtrat Rate mL/min Glucose Level 140 146 Calcium Level 8.5 8.4 Total Bilirubin 1.0 1.2 Direct Bilirubin 0.00 0.00 Indirect 1.0 1.2 H Bilirubin Aspartate Amino 43 45 Transf (AST/SGOT) Alanine 87 H 91 H Aminotransferase (ALT/SGPT) Alkaline 142 H 153 H Phosphatase Troponin I 0.068 0.070 B-Type 04182 H Natriuretic Peptide Total Protein 5.6 L 5.6 L Albumin 3.1 L 3.2 L Globulin 2.50 2.40 Albumin/Globulin 1.24 1.33 Ratio POC Venous 2.1 *H Lactate Urine Color YELLOW Urine Clarity CLEAR Urine pH 5.0 Urine Specific 1.018 [place] Urine Ketones NEGATIVE Urine Nitrite NEGATIVE Urine Bilirubin NEGATIVE Urine 2+ H Urobilinogen Urine Leukocyte NEGATIVE Esterase Urine Hemoglobin NEGATIVE Urine Glucose NEGATIVE Urine Total NEGATIVE Protein Lactic Acid Level 1.6 Creatine Kinase 101 Creatine Kinase 4.5 Index Creatinine Kinase 4.59 H MB (Mass) Test 11/04/18 07:50 11/04/18 07:52 11/04/18 10:04 11/04/18 10:05 Bedside Glucose 136 Blood Gas Blood arterial Specimen Source Arterial Blood 10/28/2018 8:05:5 Date Drawn 0 AM Arterial Blood pH 7.414 (Temp corrected) Arterial Blood 35.6 pCO2 (Temp correct) Arterial Blood 436.7 H pO2 (Temp corrected) Arterial Blood 22.3 HCO3 Arterial Blood -1.6 Base Excess Arterial Blood 99.6 H Oxygen Saturation [place] Test ACCEPTAB Arterial Blood Left Radial Gas Puncture Site Arterial 1.3 Blood Carboxyhemo globin Arterial Blood 0.2 Methemoglobin Blood Gas A-a O2 240.7 H Differential Oxyhemoglobin 98.1 Percent Blood Gas 37.0 Temperature Blood Gas MASK - NRB Modality FiO2 100.0 Blood Gas DT Notified Whom Blood Gas 11/04/2018 8:14:4 Notified Time 8 AM Lactate 802 H Dehydrogenase Total Protein 6.6 # Creatine Kinase 91 Creatine Kinase 5.0 Index Creatinine Kinase 4.53 H MB (Mass) Troponin I 0.065 Imaging Imaging ECG demonstrates sinus tachycardia, QRS 80 ms, anterior Q waves, nonspecific ST abnormalities Medications Medications Current Medications Aspirin (Halfprin) 81 mg DAILY PO Last administered on 11/04/18 11:42; Admin Dose 81 MG; Start 11/04/18 at 09:00 Enalapril Maleate (Vasotec) 2.5 mg DAILY PO ; Start 11/04/18 at 09:00 Spironolactone (Aldactone) 100 mg BID PO Last administered on 11/04/18 11:42; Admin Dose 100 MG; Start 11/04/18 at 03:00 IV Flush (NS 3 ml) 3 ml PER PROTOCOL IV ; Start 11/04/18 at 03:00 Ondansetron HCl (Zofran Inj) 4 mg Q4H PRN IV NAUSEA/VOMITING Last administered on 11/04/18 08:07; Admin Dose 4 MG; Start 11/04/18 at 03:00 Acetaminophen (Tylenol Tab) 650 mg Q6H PRN PO .PAIN 1-3 OR TEMP; Start 11/04/18 at 03:00 Acetaminophen/ Hydrocodone Bitart ([place] (5/325)) 1 tab Q6H PRN PO .PAIN 4-6 Last administered on 11/04/18 03:48; Admin Dose 1 TAB; Start 11/04/18 at 03:00 Docusate Sodium (Colace) 100 mg Q12H PRN PO .CONSTIPATION; Start 11/04/18 at 03:00 Bisacodyl (Dulcolax) 5 mg DAILY PRN PO .CONSTIPATION; Start 11/04/18 at 03:00 Pantoprazole (Protonix Tab) 40 mg DAILY@06 PO Last administered on 11/04/18at 05:11; Admin Dose 40 MG; Start 11/04/18 at 06:00 Furosemide (Lasix) 40 mg BID DIURETICS IV Last administered on 11/04/18 05:11; Admin Dose 40 MG; Start 11/04/18 at 03:00 Vancomycin HCl (Vanco Iv Per Pharmacy) VANCOMYCIN PER PHARMACY PER PROTOCOL XX ; Start 11/04/18 at 03:00 Ceftriaxone Sodium 50 ml @ 100 mls/hr Q24H IVPB Last administered on 11/04/18 11:41; Admin Dose 100 MLS/HR; Start 11/04/18 at 09:00 Levalbuterol (Xopenex Neb) 1.25 mg Q4H RESP THERAPY PRN HHN SHORTNESS OF BREATH Last administered on 11/04/18 04:48; Admin Dose 1.25 MG; Start 11/04/18 at 04:00 Morphine Sulfate (morphine) 2 mg Q3H PRN IV SEVERE PAIN LEVEL 7-10 Last administered on 11/04/18at 12:57; Admin Dose 2 MG; Start 11/04/18 at 05:00 Lorazepam (Ativan) 1 mg Q10MIN PRN IV seizures/withdrawal Last administered on 11/04/18at 14:21; Admin Dose 1 MG; Start 11/04/18 at 10:00 Dicyclomine HCl (Bentyl) 10 mg QID PRN PO abdominal cramps; Start 11/04/18 at 10:00 Clonidine (Catapres) 0.1 mg Q6H PRN PO SBP >160; Start 11/04/18 at 10:00 Carvedilol (Coreg) 6.25 mg BID PO Last administered on 11/04/18at 12:51; Admin Dose 6.25 MG; Start 11/04/18 at 10:00 Vancomycin HCl 1.5 gm/Sodium Chloride 250 ml @ 83.333 mls/ hr Q12H IVPB ; Start 11/05/18 at 01:00 Lorazepam (Ativan) 0.5 mg Q4H PRN IV anxiety, agitation; Start 11/04/18 at 16:00 Reginald Muñoz DO Nov 04, 2018 16:24
[2018-11-05] VITALS (33 sets, daily range): BP systolic 92–149; BP diastolic 61–117; PULSE 81–103; RESP 0–36
[2018-11-05] MEDS: LORAZEPAM 2 MG INJ IV PRN ×3 (00:19→14:05)
[2018-11-05] MEDS: VANCOMYCIN HCL 1.5 GM in SOD CHLORIDE 0.9% 250 ML IVPB SCH ×2 (00:22→14:04)
[2018-11-05] MEDS: HYDROCODONE/APAP (5/325) TAB PO PRN ×2 (02:59→11:32)
[2018-11-05] MEDS: LEVALBUTEROL (NEB) 1.25 MG/0.5 ML AMP HHN PRN ×3 (03:00→23:44)
[2018-11-05] MEDS: PANTOPRAZOLE (EC) 40 MG TAB PO SCH (06:00)
[2018-11-05] MEDS: FUROSEMIDE 40 MG INJ IV SCH ×2 (06:27→18:14)
[2018-11-05] MEDS: ENALAPRIL 2.5 MG TAB PO SCH (09:00)
[2018-11-05] MEDS: ASPIRIN (EC) 81 MG TAB PO SCH (09:40)
--- NOTE | 2018-11-05 09:40 | CONS ---
Assessment/Plan Assessment/Plan Assessment/Plan (Daily) Chest x-ray showing cardiomegaly with right lower lobe infiltrate. Patient is currently on BiPAP at 17/6 on 40% FiO2. Assessment recommendations; 1. Patient admitted with shortness of breath which is combination of CHF exacerbation with possibly right lower lobe pneumonia as the patient does have leukocytosis. 2. Likely chronic renal insufficiency. 3. History of drug abuse, patient exhibited agitation on admission with interval spontaneous resolution. 4. Generalized anasarca due to cirrhosis as well as CHF. 5. Mild thrombocytopenia. 6. History of hypertension. Continue current supportive measures. Patient responding well to current treatment regimen. Discontinue Rocephin and switch to cefepime. Obtain follow- up chest x-ray in 24 hours. Wean off BiPAP as tolerated. Consultation Date/Type/Reason Admit Date/Time Date of Consultation: Nov 05, 2018 Type of Consult Pulmonary/critical care Patient is a 48-year-old male who came into the emergency room yesterday with a 2-day history of increasing shortness of breath. Upon evaluation patient had a chest x-ray which is showing mild CHF with right lower lobe pneumonia. Patient has been admitted to ICU and is currently on BiPAP. The patient also was initially quite agitated but by the time I saw the patient appeared completely calm and was responsive appropriately. Patient also did not appear to be in any distress whatsoever. He denies any further shortness of breath, any chest pain, nausea, vomiting, any abdominal pain. Past medical history; 1. CHF. 2. Hepatitis C with cirrhosis. 3. History of hypertension. 4. History of drug abuse. 5. Possibly sleep apnea. 6. Likely underlying chronic renal insufficiency as well. Medications; reviewed. Allergies; none. Social history; positive for intravenous drug abuse. Occupational history; patient is on disability. Family history; noncontributory. Review of systems; denies any headache, chest pain, shortness of breath has improved. Denies any abdominal pain, nausea vomiting. Any diarrhea. Complains of generalized swelling. General exam; young male, laying comfortably in bed on BiPAP. Currently in no distress. Date/Time of Note DATE: 11/05/18 TIME: 09:35 Past Medical History Home Meds Active Scripts Carvedilol* (Carvedilol*) 6.25 Mg Tablet, 6.25 MG PO BID, #60 TAB Prov:JOSE BRADY MD 10/06/18 Furosemide* (Lasix*) 40 Mg Tablet, 40 MG PO BID, #60 TAB 1 Refill Take with Aldactone at the same time, try to take evening dose of both Lasix and Aldactone before 6 PM as to not effect your sleep Prov:JOSE BRADY MD 10/06/18 Spironolactone* (Aldactone*) 50 Mg Tablet, 100 MG PO BID, #60 TAB 1 Refill Prov:JOSE BRADY MD 10/06/18 Enalapril Maleate* (Enalapril Maleate*) 2.5 Mg Tablet, 2.5 MG PO DAILY, #60 TAB 0 Refills Prov:JOSE BRADY MD 10/06/18 Albuterol Sulfate* (Proair HFA*) 8.5 Gm Hfa.aer.ad, 2 PUFF INH Q6 for SOB, #1 INHALER Prov:JOSE BRADY MD 10/06/18 Reported Medications Aspirin Ec (Aspir 81) 81 Mg Tablet.dr, 81 MG PO DAILY, #30 TAB 11/03/18 Discontinued Scripts Levofloxacin* (Levofloxacin*) 750 Mg Tablet, 750 MG PO DAILY for 4 Days, #4 TAB Prov:JOSE BRADY MD 10/06/18 Medications Current Medications Aspirin (Halfprin) 81 mg DAILY PO Last administered on 11/04/18at 11:42; Admin Dose 81 MG; Start 11/04/18 at 09:00 Enalapril Maleate (Vasotec) 2.5 mg DAILY PO ; Start 11/04/18 at 09:00 Spironolactone (Aldactone) 100 mg BID PO Last administered on 11/04/18at 20:38; Admin Dose 100 MG; Start 11/04/18 at 03:00 IV Flush (NS 3 ml) 3 ml PER PROTOCOL IV ; Start 11/04/18 at 03:00 Ondansetron HCl (Zofran Inj) 4 mg Q4H PRN IV NAUSEA/VOMITING Last administered on 11/04/18at 08:07; Admin Dose 4 MG; Start 11/04/18 at 03:00 Acetaminophen (Tylenol Tab) 650 mg Q6H PRN PO .PAIN 1-3 OR TEMP; Start 11/04/18 at 03:00 Acetaminophen/ Hydrocodone Bitart ([place] (5/325)) 1 tab Q6H PRN PO .PAIN 4-6 Last administered on 11/05/18at 02:59; Admin Dose 1 TAB; Start 11/04/18 at 03:00 Docusate Sodium (Colace) 100 mg Q12H PRN PO .CONSTIPATION; Start 11/04/18 at 03:00 Bisacodyl (Dulcolax) 5 mg DAILY PRN PO .CONSTIPATION; Start 11/04/18 at 03:00 Pantoprazole (Protonix Tab) 40 mg DAILY@06 PO Last administered on 11/04/18at 05:11; Admin Dose 40 MG; Start 11/04/18 at 06:00 Furosemide (Lasix) 40 mg BID DIURETICS IV Last administered on 11/05/18at 06:27; Admin Dose 40 MG; Start 11/04/18 at 03:00 Vancomycin HCl (Vanco Iv Per Pharmacy) VANCOMYCIN PER PHARMACY PER PROTOCOL XX ; Start 11/04/18 at 03:00 Levalbuterol (Xopenex Neb) 1.25 mg Q4H RESP THERAPY PRN HHN SHORTNESS OF BREATH Last administered on 11/05/18at 03:00; Admin Dose 1.25 MG; Start 11/04/18 at 04:00 Lorazepam (Ativan) 1 mg Q10MIN PRN IV seizures/withdrawal Last administered on 11/04/18at 14:21; Admin Dose 1 MG; Start 11/04/18 at 10:00 Dicyclomine HCl (Bentyl) 10 mg QID PRN PO abdominal cramps; Start 11/04/18 at 10:00 Clonidine (Catapres) 0.1 mg Q6H PRN PO SBP >160; Start 11/04/18 at 10:00 Carvedilol (Coreg) 6.25 mg BID PO Last administered on 11/04/18at 20:38; Admin Dose 6.25 MG; Start 11/04/18 at 10:00 Vancomycin HCl 1.5 gm/Sodium Chloride 250 ml @ 83.333 mls/ hr Q12H IVPB Last administered on 11/05/18at 00:22; Admin Dose 83.333 MLS/HR; Start 11/05/18 at 01:00 Lorazepam (Ativan) 0.5 mg Q4H PRN IV anxiety, agitation Last administered on 11/05/18at 03:47; Admin Dose 0.5 MG; Start 11/04/18 at 16:00 Mupirocin (Bactroban) 1 applic BID TOP ; Start 11/05/18 at 09:00; Stop 11/12/18 at 08:59 Cefepime HCl 50 ml @ 100 mls/hr Q12 IVPB ; Start 11/05/18 at 21:00; Status UNV Allergies: Coded Allergies: No Known Allergies (Verified Allergy, Unknown, 11/04/18) Social History Smoking Status: Current every day smoker Drug Use: other (Methamphetamine use) Exam/Review of Systems Exam Vitals Vital Signs Date Temp Pulse Resp B/P (MAP) Pulse Ox O2 O2 Flow FiO2 Time Delivery Rate 11/05/18 40 06:24 11/05/18 90 26 100/80 97 BIPAP 20.0 06:00 (87) 11/05/18 98.2 04:00 Intake and Output 11/04/18 11/04/18 11/05/18 1414:59 22:59 06:59 IntakeIntake Total 316.66 ml 283.34 ml 400 ml OutputOutput Total 1195 ml 400 ml BalanceBalance 316.66 ml -911.66 ml 0 ml Exam HEENT exam; supple neck, positive JVD. No lymphadenopathy. Midline trachea. No thyromegaly. Patient is edentulous. No neck masses. Pupils are small bilaterally. Chest exam; diminished breath sounds bilaterally. S1-S2 audible, no murmurs. Regular rhythm. Abdomen exam; protuberant. Nontender. Organomegaly difficult to assess. There is 2+ scrotal edema. Bowel sounds audible. Extremity exam; trace generalized edema. Pulses 1+. No clubbing. DELIVERY RN exam; no focal deficit. Results Result Diagram: 11/05/1827 11/05/18526 Results 24hrs Laboratory Tests Test 11/04/18 10:04 11/04/18 10:05 11/04/18 16:56 11/05/18 03:45 Lactate 802 H Dehydrogenase Total Protein 6.6 # Creatine Kinase 91 Creatine Kinase 5.0 Index Creatinine 4.53 H Kinase MB (Mass) Troponin I 0.065 Sodium Level 137 Potassium Level 4.1 Chloride Level 101 Carbon Dioxide 24 Level Anion Gap 12 Blood Urea 36 H Nitrogen Creatinine 1.47 H Est Glomerular 51 L Filtrat Rate mL/min Glucose Level 94 # Calcium Level 9.1 Magnesium Level 1.9 Blood Gas Blood arterial Specimen Source Arterial Blood 11/05/2018 3:59: Date Drawn 55 AM Arterial Blood 7.260 *L pH (Temp corrected) Arterial Blood 56.4 H pCO2 (Temp correct) Arterial Blood 30.3 *L pO2 (Temp corrected) Arterial Blood 24.7 HCO3 Arterial Blood -3.3 L Base Excess Arterial Blood 50.6 L Oxygen Saturatio n [place] Test ACCEPTAB Arterial Blood Right Radial Gas Puncture Site Arterial 0.9 Blood Carboxyhem oglobin Arterial Blood 0.4 Methemoglobin Blood Gas A-a O2 190.0 H Differential Oxyhemoglobin 49.9 L Percent Blood Gas 37.0 Temperature Blood Gas Actual 30 Respiration Rate Blood Gas HFNC Modality FiO2 40.0 Blood Gas KARTIK AMANDA Critical Value Read Back Blood Gas LDillon Ta [facility] Notified Whom Blood Gas 11/05/2018 4:10: Notified Time 55 AM Test 11/05/18 05:27 11/05/18 05:45 White Blood 9.4 # Count Red Blood Count 6.04 Hemoglobin 14.5 Hematocrit 50.1 Mean Corpuscular 82.9 Volume Mean Corpuscular 24.0 L Hemoglobin Mean Corpuscular 28.9 L Hemoglobin Bing nt Red Cell 19.1 H Distribution Width Platelet Count 170 Mean Platelet 11.1 H Volume Immature 0.700 H Granulocytes % Neutrophils % 71.9 Lymphocytes % 12.5 L Monocytes % 13.1 H Eosinophils % 1.5 Basophils % 0.3 Nucleated Red 0.0 Blood Cells % Immature 0.070 H Granulocytes # Neutrophils # 6.7 Lymphocytes # 1.2 Monocytes # 1.2 H Eosinophils # 0.1 Basophils # 0.0 Nucleated Red 0.0 Blood Cells # Sodium Level 138 Potassium Level 4.9 Chloride Level 100 Carbon Dioxide 25 Level Anion Gap 13 Blood Urea 41 H Nitrogen Creatinine 1.89 H Est Glomerular 38 L Filtrat Rate mL/min Glucose Level 122 Calcium Level 9.4 Total Bilirubin 1.5 H Direct Bilirubin 0.40 #H Indirect 1.1 Bilirubin Aspartate Amino 39 Transf (AST/SGOT ) Alanine 73 H Aminotransferase (ALT/SGPT) Alkaline 101 Phosphatase Total Protein 6.2 Albumin 3.7 Globulin 2.50 Albumin/Globulin 1.48 Ratio Blood Gas Blood arterial Specimen Source Arterial Blood 11/05/2018 6:05: Date Drawn 10 AM Arterial Blood 7.403 pH (Temp corrected) Arterial Blood 43.0 pCO2 (Temp correct) Arterial Blood 327.8 H pO2 (Temp corrected) Arterial Blood 26.2 H HCO3 Arterial Blood 1.2 Base Excess Arterial Blood 99.6 H Oxygen Saturatio n [place] Test ACCEPTAB Arterial Blood Right Radial Gas Puncture Site Arterial 0.9 Blood Carboxyhem oglobin Arterial Blood 0.4 Methemoglobin Blood Gas A-a O2 125.1 H Differential Oxyhemoglobin 98.3 Percent Blood Gas 37.0 Temperature Blood Gas 20.0 Respiration Rate Blood Gas Actual 25 Respiration Rate Blood Gas MASK - BIPAP Modality FiO2 70.0 Blood Gas Tidal 580.0 Volume Blood Gas 18/6 IPAP/EPAP Ratio Blood Gas LDillon Ta [facility] Notified Whom Blood Gas 11/05/2018 6:17: Notified Time 42 AM Medications Medication Current Medications Aspirin (Halfprin) 81 mg DAILY PO Last administered on 11/04/18at 11:42; Admin Dose 81 MG; Start 11/04/18 at 09:00 Enalapril Maleate (Vasotec) 2.5 mg DAILY PO ; Start 11/04/18 at 09:00 Spironolactone (Aldactone) 100 mg BID PO Last administered on 11/04/18at 20:38; Admin Dose 100 MG; Start 11/04/18 at 03:00 IV Flush (NS 3 ml) 3 ml PER PROTOCOL IV ; Start 11/04/18 at 03:00 Ondansetron HCl (Zofran Inj) 4 mg Q4H PRN IV NAUSEA/VOMITING Last administered on 11/04/18at 08:07; Admin Dose 4 MG; Start 11/04/18 at 03:00 Acetaminophen (Tylenol Tab) 650 mg Q6H PRN PO .PAIN 1-3 OR TEMP; Start 11/04/18 at 03:00 Acetaminophen/ Hydrocodone Bitart ([place] (5/325)) 1 tab Q6H PRN PO .PAIN 4-6 Last administered on 11/05/18at 02:59; Admin Dose 1 TAB; Start 11/04/18 at 03:00 Docusate Sodium (Colace) 100 mg Q12H PRN PO .CONSTIPATION; Start 11/04/18 at 03:00 Bisacodyl (Dulcolax) 5 mg DAILY PRN PO .CONSTIPATION; Start 11/04/18 at 03:00 Pantoprazole (Protonix Tab) 40 mg DAILY@06 PO Last administered on 11/04/18at 05:11; Admin Dose 40 MG; Start 11/04/18 at 06:00 Furosemide (Lasix) 40 mg BID DIURETICS IV Last administered on 11/05/18at 06:27; Admin Dose 40 MG; Start 11/04/18 at 03:00 Vancomycin HCl (Vanco Iv Per Pharmacy) VANCOMYCIN PER PHARMACY PER PROTOCOL XX ; Start 11/04/18 at 03:00 Levalbuterol (Xopenex Neb) 1.25 mg Q4H RESP THERAPY PRN HHN SHORTNESS OF BREATH Last administered on 11/05/18at 03:00; Admin Dose 1.25 MG; Start 11/04/18 at 04:00 Lorazepam (Ativan) 1 mg Q10MIN PRN IV seizures/withdrawal Last administered on 11/04/18at 14:21; Admin Dose 1 MG; Start 11/04/18 at 10:00 Dicyclomine HCl (Bentyl) 10 mg QID PRN PO abdominal cramps; Start 11/04/18 at 10:00 Clonidine (Catapres) 0.1 mg Q6H PRN PO SBP >160; Start 11/04/18 at 10:00 Carvedilol (Coreg) 6.25 mg BID PO Last administered on 11/04/18at 20:38; Admin Dose 6.25 MG; Start 11/04/18 at 10:00 Vancomycin HCl 1.5 gm/Sodium Chloride 250 ml @ 83.333 mls/ hr Q12H IVPB Last administered on 11/05/18at 00:22; Admin Dose 83.333 MLS/HR; Start 11/05/18 at 01:00 Lorazepam (Ativan) 0.5 mg Q4H PRN IV anxiety, agitation Last administered on 11/05/18at 03:47; Admin Dose 0.5 MG; Start 11/04/18 at 16:00 Mupirocin (Bactroban) 1 applic BID TOP ; Start 11/05/18 at 09:00; Stop 11/12/18 at 08:59 Cefepime HCl 50 ml @ 100 mls/hr Q12 IVPB ; Start 11/05/18 at 21:00; Status SHABNAM MOREL Nov 05, 2018 09:40
[2018-11-05] MEDS: SPIRONOLACTONE 50 MG TAB PO SCH ×2 (09:41→21:23)
--- NOTE | 2018-11-05 13:10 | CONS ---
Assessment/Plan Cardiology NYHA: II Heart Failure Type: Acute on Chronic Heart Failure Type: Systolic Assessment/Plan Hospital Course (Demo Recall) Acute decompensated systolic congestive heart failure Cardiomyopathy with left ventricular ejection fraction 50-20% Respiratory failure, on high flow oxygen Recent methamphetamine use Possible sepsis MARIBEL -As per friend at bedside, patient with recent methamphetamine use. -Serial troponins have been negative. -Diuretics as per renal -Continue beta-karen -Antibiotics as per primary team -Of importance is cessation of illicit drug use Consultation Date/Type/Reason Admit Date/Time Nov 04, 2018 at 01:51 Initial Consult Date 11/05/18 Type of Consult Cardiology Date/Time of Note DATE: 11/05/18 TIME: 13:08 24 HR Interval Summary Free Text/Dictation sob better, no cp, palp Exam/Review of Systems Vital Signs Vitals Vital Signs Date Temp Pulse Resp B/P (MAP) Pulse Ox O2 O2 Flow FiO2 Time Delivery Rate 11/05/18 81 20 104/79 98 BIPAP 10:00 (87) 11/05/18 30 09:17 11/05/18 98.4 08:00 11/05/18 20.0 06:00 Intake and Output 11/04/18 11/04/18 11/05/18 1515:00 23:00 07:00 IntakeIntake Total 416.66 ml 183.34 ml 650 ml OutputOutput Total 20 ml 1175 ml 600 ml BalanceBalance 396.66 ml -991.66 ml 50 ml Exam Constitutional: alert (gollowing commands) Head: normocephalic Respiratory: other (course bs, scattered crackles) Cardiovascular: regular rate and rhythm (s1s2) Gastrointestinal: soft, non-tender, bowel sounds Extremities: edema, other Labs Result Diagram: 11/05/1827 11/05/1827 Results 24hrs Laboratory Tests Test 11/04/18 16:56 11/05/18 03:45 11/05/18 05:27 11/05/18 05:45 Sodium Level 137 138 Potassium Level 4.1 4.9 Chloride Level 101 100 Carbon Dioxide 24 25 Level Anion Gap 12 13 Blood Urea 36 H 41 H Nitrogen Creatinine 1.47 H 1.89 H Est Glomerular 51 L 38 L Filtrat Rate mL/min Glucose Level 94 # 122 Calcium Level 9.1 9.4 Magnesium Level 1.9 2.2 Blood Gas Blood arterial Blood arterial Specimen Source Arterial Blood 11/05/2018 3:59: 11/05/2018 6:05: Date Drawn 55 AM 10 AM Arterial Blood 7.260 *L 7.403 pH (Temp corrected) Arterial Blood 56.4 H 43.0 pCO2 (Temp correct) Arterial Blood 30.3 *L 327.8 H pO2 (Temp corrected) Arterial Blood 24.7 26.2 H HCO3 Arterial Blood -3.3 L 1.2 Base Excess Arterial Blood 50.6 L 99.6 H Oxygen Saturatio n [place] Test ACCEPTAB ACCEPTAB Arterial Blood Right Radial Right Radial Gas Puncture Site Arterial 0.9 0.9 Blood Carboxyhem oglobin Arterial Blood 0.4 0.4 Methemoglobin Blood Gas A-a O2 190.0 H 125.1 H Differential Oxyhemoglobin 49.9 L 98.3 Percent Blood Gas 37.0 37.0 Temperature Blood Gas Actual 30 25 Respiration Rate Blood Gas HFNC MASK - BIPAP Modality FiO2 40.0 70.0 Blood Gas KARTIK AMANDA Critical Value Read Back Blood Gas Ayala Ta RCP Notified Whom Blood Gas 11/05/2018 4:10: 11/05/2018 6:17: Notified Time 55 AM 42 AM White Blood 9.4 # Count Red Blood Count 6.04 Hemoglobin 14.5 Hematocrit 50.1 Mean Corpuscular 82.9 Volume Mean Corpuscular 24.0 L Hemoglobin Mean Corpuscular 28.9 L Hemoglobin Bing nt Red Cell 19.1 H Distribution Width Platelet Count 170 Mean Platelet 11.1 H Volume Immature 0.700 H Granulocytes % Neutrophils % 71.9 Lymphocytes % 12.5 L Monocytes % 13.1 H Eosinophils % 1.5 Basophils % 0.3 Nucleated Red 0.0 Blood Cells % Immature 0.070 H Granulocytes # Neutrophils # 6.7 Lymphocytes # 1.2 Monocytes # 1.2 H Eosinophils # 0.1 Basophils # 0.0 Nucleated Red 0.0 Blood Cells # Total Bilirubin 1.5 H Direct Bilirubin 0.40 #H Indirect 1.1 Bilirubin Aspartate Amino 39 Transf (AST/SGOT ) Alanine 73 H Aminotransferase (ALT/SGPT) Alkaline 101 Phosphatase Total Protein 6.2 Albumin 3.7 Globulin 2.50 Albumin/Globulin 1.48 Ratio Blood Gas 20.0 Respiration Rate Blood Gas Tidal 580.0 Volume Blood Gas 18/6 IPAP/EPAP Ratio Medications Medications Current Medications Aspirin (Halfprin) 81 mg DAILY PO Last administered on 11/05/18 09:40; Admin Dose 81 MG; Start 11/04/18 at 09:00 Enalapril Maleate (Vasotec) 2.5 mg DAILY PO ; Start 11/04/18 at 09:00; Status Hold Spironolactone (Aldactone) 100 mg BID PO Last administered on 11/05/18at 09:41; Admin Dose 100 MG; Start 11/04/18 at 03:00 IV Flush (NS 3 ml) 3 ml PER PROTOCOL IV ; Start 11/04/18 at 03:00 Ondansetron HCl (Zofran Inj) 4 mg Q4H PRN IV NAUSEA/VOMITING Last administered on 11/04/18at 08:07; Admin Dose 4 MG; Start 11/04/18 at 03:00 Acetaminophen (Tylenol Tab) 650 mg Q6H PRN PO .PAIN 1-3 OR TEMP; Start 11/04/18 at 03:00 Acetaminophen/ Hydrocodone Bitart ([place] (5/325)) 1 tab Q6H PRN PO .PAIN 4-6 Last administered on 11/05/18at 11:32; Admin Dose 1 TAB; Start 11/04/18 at 03:00 Docusate Sodium (Colace) 100 mg Q12H PRN PO .CONSTIPATION; Start 11/04/18 at 03:00 Bisacodyl (Dulcolax) 5 mg DAILY PRN PO .CONSTIPATION; Start 11/04/18 at 03:00 Pantoprazole (Protonix Tab) 40 mg DAILY@06 PO Last administered on 11/04/18at 05:11; Admin Dose 40 MG; Start 11/04/18 at 06:00 Furosemide (Lasix) 40 mg BID DIURETICS IV Last administered on 11/05/18at 0 6:27; Admin Dose 40 MG; Start 11/04/18 at 03:00 Vancomycin HCl (Vanco Iv Per Pharmacy) VANCOMYCIN PER PHARMACY PER PROTOCOL XX ; Start 11/04/18 at 03:00 Levalbuterol (Xopenex Neb) 1.25 mg Q4H RESP THERAPY PRN HHN SHORTNESS OF BREATH Last administered on 11/05/18at 03:00; Admin Dose 1.25 MG; Start 11/04/18 at 04:00 Lorazepam (Ativan) 1 mg Q10MIN PRN IV seizures/withdrawal Last administered on 11/04/18at 14:21; Admin Dose 1 MG; Start 11/04/18 at 10:00 Dicyclomine HCl (Bentyl) 10 mg QID PRN PO abdominal cramps; Start 11/04/18 at 10:00 Clonidine (Catapres) 0.1 mg Q6H PRN PO SBP >160; Start 11/04/18 at 10:00 Carvedilol (Coreg) 6.25 mg BID PO Last administered on 11/05/18at 09:41; Admin Dose 6.25 MG; Start 11/04/18 at 10:00 Vancomycin HCl 1.5 gm/Sodium Chloride 250 ml @ 83.333 mls/ hr Q12H IVPB Last administered on 11/05/18at 00:22; Admin Dose 83.333 MLS/HR; Start 11/05/18 at 01:00 Lorazepam (Ativan) 0.5 mg Q4H PRN IV anxiety, agitation Last administered on 11/05/18at 03:47; Admin Dose 0.5 MG; Start 11/04/18 at 16:00 Mupirocin (Bactroban) 1 applic BID TOP ; Start 11/05/18 at 09:00; Stop 11/12/18 at 08:59 Cefepime HCl 50 ml @ 100 mls/hr Q12 IVPB ; Start 11/05/18 at 21:00 Enoxaparin Sodium (Lovenox) 40 mg DAILY SC ; Start 11/05/18 at 10:00 Reginald Muñoz DO Nov 05, 2018 13:10
[2018-11-05] MEDS: MUPIROCIN 2% 22 GM OINT TOP SCH ×2 (14:04→21:24)
[2018-11-05] MEDS: ENOXAPARIN 40 MG/0.4 ML SYG SC SCH (14:17)
--- NOTE | 2018-11-05 14:44 | PN ---
Date/Time of Note Date/Time of Note DATE: 11/05/18 TIME: 14:34 Assessment/Plan VTE Prophylaxis Risk score (from Nsg)>0 risk: 5 SCD applied (from Nsg): Yes Pharmacological prophylaxis: LMWH Lines/Catheters IV Catheter Type (from Nrsg): Peripheral IV Urinary Cath still in place: Yes Reason Cath still needed: urinary retention Assessment/Plan Assessment/Plan 1. Acute shortness of breath, multifactorial - ABG results noted this am and placed on BIPAP 2. MARIBEL - ATN vs prerenal vs cardiorenal - Nephrology consultation placed for further recommendations given patients Cr increasing daily - will avoid nephrotoxic agents 3. Acute on chronic systolic and diastolic heart failure - ECHO results noted and EF 15-20% which is a decline from 06/2018 - On Lasix and spironolactone - will avoid using BB given recent meth use - Cardiology consultation appreciated. 4. Sepsis secondary to PNA - seen on CXR - continue IV antibiotics which were broaden this am - Pulm on board and appreciate recommendations 5. Liver cirrhosis secondary to Hep C - continue diuretics - will need outpatient therapy 6. COPD - PRN neb tx for SOB 7. Illicit drug use - reports recent methamphetamine use - Utox results noted - supportive care for withdrawal sx 8. Disposition - Patient still with fluctuations in respiratory status. Will continue close monitoring in ICU and if stable tomorrow, will downgrade to telemetry >35 minutes of critical care time spent with patient Result Diagram: 11/05/1827 11/05/18526 Results 24hrs Laboratory Tests Test 11/04/18 16:56 11/05/18 03:45 11/05/18 05:27 11/05/18 05:45 Sodium Level 137 138 Potassium Level 4.1 4.9 Chloride Level 101 100 Carbon Dioxide 24 25 Level Anion Gap 12 13 Blood Urea 36 H 41 H Nitrogen Creatinine 1.47 H 1.89 H Est Glomerular 51 L 38 L Filtrat Rate mL/min Glucose Level 94 # 122 Calcium Level 9.1 9.4 Magnesium Level 1.9 2.2 Blood Gas Blood arterial Blood arterial Specimen Source Arterial Blood 11/05/2018 3:59: 11/05/2018 6:05: Date Drawn 55 AM 10 AM Arterial Blood 7.260 *L 7.403 pH (Temp corrected) Arterial Blood 56.4 H 43.0 pCO2 (Temp correct) Arterial Blood 30.3 *L 327.8 H pO2 (Temp corrected) Arterial Blood 24.7 26.2 H HCO3 Arterial Blood -3.3 L 1.2 Base Excess Arterial Blood 50.6 L 99.6 H Oxygen Saturatio n [place] Test ACCEPTAB ACCEPTAB Arterial Blood Right Radial Right Radial Gas Puncture Site Arterial 0.9 0.9 Blood Carboxyhem oglobin Arterial Blood 0.4 0.4 Methemoglobin Blood Gas A-a O2 190.0 H 125.1 H Differential Oxyhemoglobin 49.9 L 98.3 Percent Blood Gas 37.0 37.0 Temperature Blood Gas Actual 30 25 Respiration Rate Blood Gas HFNC MASK - BIPAP Modality FiO2 40.0 70.0 Blood Gas KARTIK AMANDA Critical Value Read Back Blood Gas Ayala Ta RCP Notified Whom Blood Gas 11/05/2018 4:10: 11/05/2018 6:17: Notified Time 55 AM 42 AM White Blood 9.4 # Count Red Blood Count 6.04 Hemoglobin 14.5 Hematocrit 50.1 Mean Corpuscular 82.9 Volume Mean Corpuscular 24.0 L Hemoglobin Mean Corpuscular 28.9 L Hemoglobin Bing nt Red Cell 19.1 H Distribution Width Platelet Count 170 Mean Platelet 11.1 H Volume Immature 0.700 H Granulocytes % Neutrophils % 71.9 Lymphocytes % 12.5 L Monocytes % 13.1 H Eosinophils % 1.5 Basophils % 0.3 Nucleated Red 0.0 Blood Cells % Immature 0.070 H Granulocytes # Neutrophils # 6.7 Lymphocytes # 1.2 Monocytes # 1.2 H Eosinophils # 0.1 Basophils # 0.0 Nucleated Red 0.0 Blood Cells # Total Bilirubin 1.5 H Direct Bilirubin 0.40 #H Indirect 1.1 Bilirubin Aspartate Amino 39 Transf (AST/SGOT ) Alanine 73 H Aminotransferase (ALT/SGPT) Alkaline 101 Phosphatase Total Protein 6.2 Albumin 3.7 Globulin 2.50 Albumin/Globulin 1.48 Ratio Blood Gas 20.0 Respiration Rate Blood Gas Tidal 580.0 Volume Blood Gas 18/6 IPAP/EPAP Ratio Subjective 24 Hr Interval Summary Free Text/Dictation Patient placed on BIPAP this am given hypoxia and cyanosis per Nursing report. Patient states hes feeling better this am but still with abdominal pain. Exam/Review of Systems Exam Vitals Vital Signs Date Temp Pulse Resp B/P (MAP) Pulse Ox O2 O2 Flow FiO2 Time Delivery Rate 11/05/18 82 22 119/89 100 BIPAP 13:00 (99) 11/05/18 97.6 12:00 11/05/18 30 09:17 11/05/18 20.0 06:00 Intake and Output 11/04/18 11/04/18 11/05/18 1515:00 23:00 07:00 IntakeIntake Total 416.66 ml 183.34 ml 650 ml OutputOutput Total 20 ml 1175 ml 600 ml BalanceBalance 396.66 ml -991.66 ml 50 ml Exam General: no acute distress. BIPAP on Chest: Nontender Lungs: Diminished breath sounds bilaterally, no wheezing, accessory muscle use Heart: S1, S2, regular rhythm, tachycardia, no murmurs Abdomen: Soft , mildly tender, protuberant, no rebound or guarding, +BS Extremities: Bilateral edema of the lower extremities Skin: Multiple tattoos, abrasions and scabs on LE Results Results 24hrs Laboratory Tests Test 11/04/18 16:56 11/05/18 03:45 11/05/18 05:27 11/05/18 05:45 Sodium Level 137 138 Potassium Level 4.1 4.9 Chloride Level 101 100 Carbon Dioxide 24 25 Level Anion Gap 12 13 Blood Urea 36 H 41 H Nitrogen Creatinine 1.47 H 1.89 H Est Glomerular 51 L 38 L Filtrat Rate mL/min Glucose Level 94 # 122 Calcium Level 9.1 9.4 Magnesium Level 1.9 2.2 Blood Gas Blood arterial Blood arterial Specimen Source Arterial Blood 11/05/2018 3:59: 11/05/2018 6:05: Date Drawn 55 AM 10 AM Arterial Blood 7.260 *L 7.403 pH (Temp corrected) Arterial Blood 56.4 H 43.0 pCO2 (Temp correct) Arterial Blood 30.3 *L 327.8 H pO2 (Temp corrected) Arterial Blood 24.7 26.2 H HCO3 Arterial Blood -3.3 L 1.2 Base Excess Arterial Blood 50.6 L 99.6 H Oxygen Saturatio n [place] Test ACCEPTAB ACCEPTAB Arterial Blood Right Radial Right Radial Gas Puncture Site Arterial 0.9 0.9 Blood Carboxyhem oglobin Arterial Blood 0.4 0.4 Methemoglobin Blood Gas A-a O2 190.0 H 125.1 H Differential Oxyhemoglobin 49.9 L 98.3 Percent Blood Gas 37.0 37.0 Temperature Blood Gas Actual 30 25 Respiration Rate Blood Gas HFNC MASK - BIPAP Modality FiO2 40.0 70.0 Blood Gas KARTIK AMANDA Critical Value Read Back Blood Gas Ayala Ta [facility] Ayala Ta [facility] Notified Whom Blood Gas 11/05/2018 4:10: 11/05/2018 6:17: Notified Time 55 AM 42 AM White Blood 9.4 # Count Red Blood Count 6.04 Hemoglobin 14.5 Hematocrit 50.1 Mean Corpuscular 82.9 Volume Mean Corpuscular 24.0 L Hemoglobin Mean Corpuscular 28.9 L Hemoglobin Bing nt Red Cell 19.1 H Distribution Width Platelet Count 170 Mean Platelet 11.1 H Volume Immature 0.700 H Granulocytes % Neutrophils % 71.9 Lymphocytes % 12.5 L Monocytes % 13.1 H Eosinophils % 1.5 Basophils % 0.3 Nucleated Red 0.0 Blood Cells % Immature 0.070 H Granulocytes # Neutrophils # 6.7 Lymphocytes # 1.2 Monocytes # 1.2 H Eosinophils # 0.1 Basophils # 0.0 Nucleated Red 0.0 Blood Cells # Total Bilirubin 1.5 H Direct Bilirubin 0.40 #H Indirect 1.1 Bilirubin Aspartate Amino 39 Transf (AST/SGOT ) Alanine 73 H Aminotransferase (ALT/SGPT) Alkaline 101 Phosphatase Total Protein 6.2 Albumin 3.7 Globulin 2.50 Albumin/Globulin 1.48 Ratio Blood Gas 20.0 Respiration Rate Blood Gas Tidal 580.0 Volume Blood Gas 18/6 IPAP/EPAP Ratio Medications Medication Current Medications Aspirin (Halfprin) 81 mg DAILY PO Last administered on 11/05/18at 09:40; Admin Dose 81 MG; Start 11/04/18 at 09:00 Enalapril Maleate (Vasotec) 2.5 mg DAILY PO ; Start 11/04/18 at 09:00; Status Hold Spironolactone (Aldactone) 100 mg BID PO Last administered on 11/05/18at 09:41; Admin Dose 100 MG; Start 11/04/18 at 03:00 IV Flush (NS 3 ml) 3 ml PER PROTOCOL IV ; Start 11/04/18 at 03:00 Ondansetron HCl (Zofran Inj) 4 mg Q4H PRN IV NAUSEA/VOMITING Last administered on 11/04/18at 08:07; Admin Dose 4 MG; Start 11/04/18 at 03:00 Acetaminophen (Tylenol Tab) 650 mg Q6H PRN PO .PAIN 1-3 OR TEMP; Start 11/04/18 at 03:00 Docusate Sodium (Colace) 100 mg Q12H PRN PO .CONSTIPATION; Start 11/04/18 at 03:00 Bisacodyl (Dulcolax) 5 mg DAILY PRN PO .CONSTIPATION; Start 11/04/18 at 03:00 Pantoprazole (Protonix Tab) 40 mg DAILY@06 PO Last administered on 11/04/18at 05:11; Admin Dose 40 MG; Start 11/04/18 at 06:00 Furosemide (Lasix) 40 mg BID DIURETICS IV Last administered on 11/05/18at 06:27; Admin Dose 40 MG; Start 11/04/18 at 03:00 Vancomycin HCl (Vanco Iv Per Pharmacy) VANCOMYCIN PER PHARMACY PER PROTOCOL XX ; Start 11/04/18 at 03:00 Levalbuterol (Xopenex Neb) 1.25 mg Q4H RESP THERAPY PRN HHN SHORTNESS OF BREATH Last administered on 11/05/18at 03:00; Admin Dose 1.25 MG; Start 11/04/18 at 04:00 Lorazepam (Ativan) 1 mg Q10MIN PRN IV seizures/withdrawal Last administered on 11/04/18at 14:21; Admin Dose 1 MG; Start 11/04/18 at 10:00 Dicyclomine HCl (Bentyl) 10 mg QID PRN PO abdominal cramps; Start 11/04/18 at 10:00 Clonidine (Catapres) 0.1 mg Q6H PRN PO SBP >160; Start 11/04/18 at 10:00 Carvedilol (Coreg) 6.25 mg BID PO Last administered on 11/05/18at 09:41; Admin Dose 6.25 MG; Start 11/04/18 at 10:00 Vancomycin HCl 1.5 gm/Sodium Chloride 250 ml @ 83.333 mls/ hr Q12H IVPB Last administered on 11/05/18at 14:04; Admin Dose 83.333 MLS/HR; Start 11/05/18 at 01:00; Status Hold Lorazepam (Ativan) 0.5 mg Q4H PRN IV anxiety, agitation Last administered on 11/05/18at 14:05; Admin Dose 0.5 MG; Start 11/04/18 at 16:00 Mupirocin (Bactroban) 1 applic BID TOP Last administered on 11/05/18at 14:04; Admin Dose 1 APPLIC; Start 11/05/18 at 09:00; Stop 11/12/18 at 08:59 Cefepime HCl 50 ml @ 100 mls/hr Q12 IVPB ; Start 11/05/18 at 21:00 Enoxaparin Sodium (Lovenox) 40 mg DAILY SC Last administered on 11/05/18at 14:17; Admin Dose 40 MG; Start 11/05/18 at 10:00 Acetaminophen/ Hydrocodone Bitart ([place] (5/325)) 1 tab Q4H PRN PO .PAIN 4-6; Start 11/05/18 at 15:00 Acetaminophen/ Hydrocodone Bitart ([place] (10/325)) 1 tab Q6H PRN PO PAIN LEVEL 7-10; Start 11/05/18 at 14:00 Morphine Sulfate (morphine) 2 mg Q4H PRN IV SEVERE PAIN LEVEL 7-10; Start 11/05/18 at 14:30 DAMEON MADRIGAL MD Nov 05, 2018 14:44
[2018-11-05] MEDS ORDERED: HYDROCODONE/APAP (5/325) TAB PO PRN (15:00)
[2018-11-05] MEDS: morphine 2 MG INJ IV PRN ×3 (15:06→22:42)
--- NOTE | 2018-11-05 16:31 | CONS ---
DATE OF ADMISSION: 11/04/2018 DATE OF CONSULTATION: 11/05/2018 HISTORY OF PRESENT ILLNESS: This is a 48-year-old male with a past medical history of heart failure, systolic, diastolic, history of CHF, history of cirrhosis, history of drug abuse who presents to [facility] Emergency Room with chest pain and shortness of breath. The patient report s over the past several days having increased lower extremity edema, scrotal edema. Patient upon arr ival to the Emergency Room had a chest x-ray which showed findings of increased pulmonary vascularity , bilateral air space infiltrate, possible pulmonary edema, CHF. The patient also had a noted right lower lobe infiltrate. Abdominal ultrasound was also obtained, which showed evidence of a small amou nt of free fluid in the abdomen. The patient was started on aggressive diuretic therapy, was placed on BiPAP and admitted to the intensive care unit for continued care. While in the intensive care uni t, the patient is seen by energy attorney, Dr. Muñoz. The patient was also placed on antibiotic therap y for possible SBP and sepsis. In terms of patient's renal history, the patient has underlying chronic kidney disease with a previou s baseline creatinine ranging from 1.2 to 1.5 mg/dL. On admission, patient had a creatinine of 1.47 mg/dL which is increased to 1.89 mg/dL. During this time the patient had good urinary output, over 2 liters. There have been no reports of any hemoptysis, hematemesis or hematochezia. PAST MEDICAL HISTORY: As stated above, history of CHF, history of CKD, history of polysubstance abus e, history of cirrhosis, history of hepatitis C. PAST SURGICAL HISTORY: Right wrist surgery, appendectomy. FAMILY HISTORY: No family history of kidney disease. SOCIAL HISTORY: Positive for drug abuse. Positive for tobacco use. MEDICATIONS: The patient's medications have been reviewed. REVIEW OF SYSTEMS: A 14-point review of systems was conducted. Pertinent positives stated in HPI, o therwise negative. PHYSICAL EXAMINATION: VITAL SIGNS: Blood pressure is 104/79, respiratory rate 20, pulse 81, temperature 98.4. HEENT: Head is normocephalic. NECK: Positive for JVD. HEART: Regular rate. LUNGS: Show diminished breath sounds at base. Positive rhonchi. ABDOMEN: Soft, nontender to palpation without rebound or guarding. EXTREMITIES: Negative for clubbing, cyanosis, no edema. DERMATOLOGIC: No rashes. MUSCULOSKELETAL: No joint effusions. NEUROLOGIC: Limited exam, but no focal deficits. MEDICATIONS: Reviewed. LABORATORY DATA: Shows white count 9.4, hemoglobin 14.5, platelet count is 170. Sodium 138, BUN 41, creatinine 1.89. The patient's initial urinalysis was bland. ASSESSMENT AND PLAN: This is a 48-year-old male who presents with: 1. Nonoliguric acute kidney injury on top of chronic kidney disease with previous baseline creatinin e around 1.5 mg/dL. Etiology of current acute kidney injury is secondary to hemodynamics, likely car diorenal syndrome. The patient's 2D echo shows evidence of ejection fraction 15% to 20% and a dilate d IVC consistent with elevated right arterial pressures. The patient's urinalysis was reviewed, show s bland sediment. Had previous renal ultrasound shows normal renal echogenicity. Recommendation at this point is to continue current medical management. Will continue diuretic therapy. We will monit or I's and O's and renal function closely. Would hold any AKANKSHA inhibitor or ARB at this time. If the patient's renal function should continue to decline in the next 24 hours, would deescalate diuretic therapy in order to enable fluid to appropriately mobilize. Otherwise, continue supportive care, peri ally dose all medications, avoid hypotensive episodes. Please note that the possibility of nephrotox icity may also be a contributing factor to patient's underlying acute kidney injury, as he has a rece nt history of substance abuse. Will continue to monitor. 2. Acute systolic, diastolic heart failure. The patient is decompensated. The patient has noted lo wer extremity edema, elevated JVD. pulmonary congestion. Continue current diuretic regimen. Monitor electrolytes and renal function cl osely. 3. Mineral bone disorder, monitor calcium and phosphorus levels. 4. Acute hypoxic respiratory failure, etiology secondary to congestive heart failure exacerbation, p ossible pneumonia. Continue medical management. Continue BiPAP, nebulizers, diuretic therapy, antib iotics, monitor closely. 5. Systemic inflammatory response syndrome, possible pneumonia. Continue current antibiotic regimen . 6. History of liver cirrhosis. The patient is volume overloaded. However, this is likely in large part due to decompensated heart failure. However, will continue to monitor closely on diuretic thera py, may consider checking ammonia level. Continue supportive care. 7. History of chronic obstructive pulmonary disease. Continue medical management. 8. Polysubstance abuse. Continue current treatment plan. Monitor for signs of withdrawal. Follow up urine tox screen. Thank you, Dr. Diallo, for this interesting consult. It will be a pleasure to follow patient with yo u throughout the hospital course. Dictated By: NHAN NIETO DO NR/NTS Conf#: [id number] DID#: [id number] CC: LULY MCDONALD MD;*EndCC*
[2018-11-05] MEDS: VANCOMYCIN 750 MG (PMX) 250 ML IVPB SCH (17:35)
[2018-11-05] MEDS: CEFEPIME 1GM/50 ML (PMX) 50 ML IVPB SCH (21:23)
[2018-11-06] VITALS (20 sets, daily range): BP systolic 96–140; BP diastolic 8–101; PULSE 78–94; RESP 16–27
[2018-11-06] MEDS: VANCOMYCIN 750 MG (PMX) 250 ML IVPB SCH ×2 (03:31→17:02)
[2018-11-06] MEDS: morphine 2 MG INJ IV PRN ×4 (03:39→21:43)
[2018-11-06] MEDS: FUROSEMIDE 40 MG INJ IV SCH ×2 (06:14→17:51)
[2018-11-06] MEDS: PANTOPRAZOLE (EC) 40 MG TAB PO SCH (06:14)
--- NOTE | 2018-11-06 08:01 | CONS ---
Assessment/Plan Cardiology NYHA: II Heart Failure Type: Acute on Chronic Heart Failure Type: Systolic Assessment/Plan Assessment/Plan (Daily) Assessment Acute decompensated systolic congestive heart failure Cardiomyopathy with left ventricular ejection fraction 15-20% Respiratory failure, on high flow oxygen Recent methamphetamine use Possible sepsis MARIBEL Plan: continue beta karen diuresis appreciate renal input Consultation Date/Type/Reason Admit Date/Time Nov 04, 2018 at 01:51 Initial Consult Date 11/05/18 Type of Consult Cardiology Date/Time of Note DATE: 11/06/18 TIME: 08:00 Detailed Summary Respiratory: no complaints Cardiovascular: no complaints Gastrointestinal: no complaints Musculoskeletal: no complaints Skin: no complaints Neurologic: no complaints Endocrine: no complaints Exam/Review of Systems Vital Signs Vitals Vital Signs Date Temp Pulse Resp B/P (MAP) Pulse Ox O2 O2 Flow FiO2 Time Delivery Rate 11/06/18 80 17 140/96 100 High Flow 06:59 (111) 11/06/18 45 05:00 11/06/18 98.3 04:00 11/05/18 20.0 06:00 Intake and Output 11/05/18 11/05/18 11/06/18 1515:00 23:00 07:00 IntakeIntake Total 920 ml 470 ml 236.6 ml OutputOutput Total 965 ml 360 ml 300 ml BalanceBalance -45 ml 110 ml -63.4 ml Exam Constitutional: alert, oriented Head: normocephalic, atraumatic Neck: supple Respiratory: clear to auscultation Cardiovascular: regular rate and rhythm Gastrointestinal: soft Musculoskeletal: nl extremities to inspection Labs Result Diagram: 11/06/18 0429 11/06/18 0429 Results 24hrs Laboratory Tests Test 11/05/18 18:00 11/06/18 04:29 Urine Color LEWIS Urine Clarity SLIGHTLY CLOUDY A Urine pH 5.0 Urine Specific [place] 1.018 Urine Ketones NEGATIVE Urine Nitrite NEGATIVE Urine Bilirubin NEGATIVE Urine Urobilinogen 2+ H Urine Leukocyte Esterase NEGATIVE Urine Microscopic RBC 44 H Urine Microscopic WBC 5 Urine Mucus FEW A Urine Hemoglobin 2+ H Urine Random Creatinine 126.37 Urine Random Sodium 41 Urine Glucose NEGATIVE Urine Total Protein 42.0 H Urine Opiates Screen Positive Urine Barbiturates Negative Urine Amphetamines Screen POSITIVE Urine Benzodiazepines Screen Negative Urine Cocaine Screen Negative Urine Cannabinoids Negative White Blood Count 8.6 Red Blood Count 5.84 Hemoglobin 14.1 Hematocrit 47.3 Mean Corpuscular Volume 81.0 L Mean Corpuscular Hemoglobin 24.1 L Mean Corpuscular Hemoglobin Concent 29.8 L Red Cell Distribution Width 19.2 H Platelet Count 184 Mean Platelet Volume 10.6 H Immature Granulocytes % 0.700 H Neutrophils % 70.5 Lymphocytes % 14.7 L Monocytes % 12.3 H Eosinophils % 1.5 Basophils % 0.3 Nucleated Red Blood Cells % 0.0 Immature Granulocytes # 0.060 H Neutrophils # 6.1 Lymphocytes # 1.3 Monocytes # 1.1 H Eosinophils # 0.1 Basophils # 0.0 Nucleated Red Blood Cells # 0.0 Sodium Level 135 Potassium Level 4.3 Chloride Level 99 Carbon Dioxide Level 27 Anion Gap 9 Blood Urea Nitrogen 48 H Creatinine 1.69 H Est Glomerular Filtrat Rate mL/min 43 L Glucose Level 92 Calcium Level 9.2 Phosphorus Level 4.0 Magnesium Level 2.0 Total Bilirubin 0.5 Direct Bilirubin 0.00 # Indirect Bilirubin 0.5 Aspartate Amino Transf (AST/SGOT) 37 Alanine Aminotransferase (ALT/SGPT) 68 Alkaline Phosphatase 103 Total Protein 5.9 L Albumin 3.4 Globulin 2.50 Albumin/Globulin Ratio 1.36 Medications Medications Current Medications Aspirin (Halfprin) 81 mg DAILY PO Last administered on 11/05/18at 09:40; Admin Dose 81 MG; Start 11/04/18 at 09:00 Enalapril Maleate (Vasotec) 2.5 mg DAILY PO ; Start 11/04/18 at 09:00; Status Hold Spironolactone (Aldactone) 100 mg BID PO Last administered on 11/05/18at 21:23; Admin Dose 100 MG; Start 11/04/18 at 03:00 IV Flush (NS 3 ml) 3 ml PER PROTOCOL IV ; Start 11/04/18 at 03:00 Ondansetron HCl (Zofran Inj) 4 mg Q4H PRN IV NAUSEA/VOMITING Last administered on 11/04/18at 08:07; Admin Dose 4 MG; Start 11/04/18 at 03:00 Acetaminophen (Tylenol Tab) 650 mg Q6H PRN PO .PAIN 1-3 OR TEMP; Start 11/04/18 at 03:00 Docusate Sodium (Colace) 100 mg Q12H PRN PO .CONSTIPATION; Start 11/04/18 at 03:00 Bisacodyl (Dulcolax) 5 mg DAILY PRN PO .CONSTIPATION; Start 11/04/18 at 03:00 Pantoprazole (Protonix Tab) 40 mg DAILY@06 PO Last administered on 11/06/18 06:14; Admin Dose 40 MG; Start 11/04/18 at 06:00 Furosemide (Lasix) 40 mg BID DIURETICS IV Last administered on 11/06/18 06:14; Admin Dose 40 MG; Start 11/04/18 at 03:00 Vancomycin HCl (Vanco Iv Per Pharmacy) VANCOMYCIN PER PHARMACY PER PROTOCOL XX ; Start 11/04/18 at 03:00 Levalbuterol (Xopenex Neb) 1.25 mg Q4H RESP THERAPY PRN HHN SHORTNESS OF BREATH Last administered on 11/05/18at 23:44; Admin Dose 1.25 MG; Start 11/04/18 at 04:00 Lorazepam (Ativan) 1 mg Q10MIN PRN IV seizures/withdrawal Last administered on 11/04/18at 14:21; Admin Dose 1 MG; Start 11/04/18 at 10:00 Dicyclomine HCl (Bentyl) 10 mg QID PRN PO abdominal cramps; Start 11/04/18 at 10:00 Clonidine (Catapres) 0.1 mg Q6H PRN PO SBP >160; Start 11/04/18 at 10:00 Carvedilol (Coreg) 6.25 mg BID PO Last administered on 11/05/18at 21:24; Admin Dose 6.25 MG; Start 11/04/18 at 10:00 Lorazepam (Ativan) 0.5 mg Q4H PRN IV anxiety, agitation Last administered on 11/05/18at 14:05; Admin Dose 0.5 MG; Start 11/04/18 at 16:00 Mupirocin (Bactroban) 1 applic BID TOP Last administered on 11/05/18at 21:24; Admin Dose 1 APPLIC; Start 11/05/18 at 09:00; Stop 11/12/18 at 08:59 Cefepime HCl 50 ml @ 100 mls/hr Q12 IVPB Last administered on 11/05/18at 21:23; Admin Dose 100 MLS/HR; Start 11/05/18 at 21:00 Enoxaparin Sodium (Lovenox) 40 mg DAILY SC Last administered on 11/05/18at 14:17; Admin Dose 40 MG; Start 11/05/18 at 10:00 Acetaminophen/ Hydrocodone Bitart ([place] (5/325)) 1 tab Q4H PRN PO .PAIN 4-6; Start 11/05/18 at 15:00 Acetaminophen/ Hydrocodone Bitart ([place] (10/325)) 1 tab Q6H PRN PO PAIN LEVEL 7-10; Start 11/05/18 at 14:00 Morphine Sulfate (morphine) 2 mg Q4H PRN IV SEVERE PAIN LEVEL 7-10 Last administered on 11/06/18at 03:39; Admin Dose 2 MG; Start 11/05/18 at 14:30 Vancomycin/Sodium Chloride 250 ml @ 125 mls/hr Q12H IVPB Last administered on 11/06/18at 03:31; Admin Dose 125 MLS/HR; Start 11/05/18 at 16:00 Miscellaneous Information (*Rx Drug Level Order Reminder*) VANCO TROUGH @ 1,500 ONCE ONCE XX ; Start 11/06/18 at 15:00; Stop 11/06/18 at 15:01 RINA DE LUNA MD Nov 06, 2018 08:01
--- NOTE | 2018-11-06 08:03 | PN ---
DATE: 11/06/2018 SUBJECTIVE: The patient remains in serious condition. The patient is currently on high flow oxygen. Urinary output has been adequate. No other events noted. OBJECTIVE: VITAL SIGNS: Blood pressure is 140/96, respirations 17, pulse 80, temperature 98.3. HEENT: Head is normocephalic. NECK: Supple. HEART: Regular rate. LUNGS: Show diminished breath sounds at the base. ABDOMEN: Soft, nontender to palpation without rebound or guarding. EXTREMITIES: Negative for clubbing, cyanosis. Positive edema. DERMATOLOGIC: No rashes. MUSCULOSKELETAL: No joint effusion. NEUROLOGIC: No change in exam. MEDICATIONS: Reviewed. LABORATORY DATA: Has been reviewed. Patient has a BUN 58, creatinine 1.69. White count 8.6, hemogl obin 14.1. Urinalysis shows a of 1%, a protein creatinine ratio approximately 400 mg creatinin e. Patient's renal ultrasound was previously reviewed. ASSESSMENT AND PLAN: 1. Nonoliguric acute kidney injury on top of chronic kidney, previous baseline creatinine around 1.5 mg/dL. Etiology of MARIBEL is multifactorial secondary to hemodynamics, likely cardiorenal syndrome, po ssible nephrotoxicity from amphetamine use. The patient's 2D echo does show ejection fraction of 15% , dilated IVC consistent with cardiorenal pathophysiology. The patient's urinalysis is otherwise donya nd. The patient's renal function has improved in the last 24 hours on diuretic therapy. 2. Acute systolic, diastolic heart failure. The patient is currently decompensated. Continue curre nt diuretic regimen as stated above. Monitor renal function, electrolytes closely. 3. Mineral bone disorder. Monitor calcium and phosphorus levels. 4. Acute hypoxemic respiratory failure, etiology secondary to congestive heart failure, possible pne umonia. Continue medical management. Continue high flow oxygen, diuretic therapy, antibiotics, nebu lizers. 5. SIRS, possible pneumonia. Continue current antibiotic regimen. 6. History of liver cirrhosis. Continue to monitor. Continue medical management. 7. History of COPD. Continue medical management. 8. Polysubstance abuse. The patient is positive for amphetamines. Continue to monitor for any sign s of withdrawal. RECOMMENDATIONS: To continue current treatment plan. Continue diuretic regimen. Continue supportive care, renally dose all meds. Anticipate starting AKANKSHA inhibitor or ARB once renal function has stabi lized. Dictated By: NHAN NIETO DO NR/NTS Conf#: [id number] DID#: [id number] CC: MALGORZATA NELSON MD; LULY MCDONALD MD;*End*
[2018-11-06] MEDS: LEVALBUTEROL (NEB) 1.25 MG/0.5 ML AMP HHN PRN ×2 (08:33→16:43)
[2018-11-06] MEDS: ASPIRIN (EC) 81 MG TAB PO SCH (08:50)
[2018-11-06] MEDS: SPIRONOLACTONE 50 MG TAB PO SCH ×2 (08:50→21:40)
[2018-11-06] MEDS: CEFEPIME 1GM/50 ML (PMX) 50 ML IVPB SCH ×2 (08:50→21:39)
--- NOTE | 2018-11-06 08:50 | PN ---
Date/Time of Note Date/Time of Note DATE: 11/06/18 TIME: 08:49 Assessment/Plan VTE Prophylaxis Risk score (from Ns)>0 risk: 5 SCD applied (from Ns): Yes Pharmacological prophylaxis: LMWH Lines/Catheters IV Catheter Type (from Nrs): Peripheral IV Urinary Cath still in place: Yes Reason Cath still needed: urinary retention Assessment/Plan Assessment/Plan 1. Acute shortness of breath, multifactorial- improving - Patient tolerating high flow and will wean as tolerated 2. MARIBEL- improving - ATN vs prerenal vs cardiorenal - Nephrology consultation appreciated and will continue current regime - will avoid nephrotoxic agents 3. Acute on chronic systolic and diastolic heart failure - ECHO results noted and EF 15-20% which is a decline from 06/2018 - On Lasix and spironolactone - Cardiology consultation appreciated. 4. Sepsis secondary to PNA - remains afebrile with nl WBC - seen on CXR - Pulm on board and appreciate recommendations. continue current treatment 5. Liver cirrhosis secondary to Hep C - continue diuretics - will need outpatient therapy 6. COPD - PRN neb tx for SOB 7. Illicit drug use - reports recent methamphetamine use - Utox results noted - supportive care for withdrawal sx 8. Disposition - Overall improvement in respiratory status and will continue weaning high flow as tolerated. Will downgrade to telemetry Result Diagram: 11/06/18 0429 11/06/18 0429 Results 24hrs Laboratory Tests Test 11/05/18 18:00 11/06/18 04:29 Urine Color LEWIS Urine Clarity SLIGHTLY CLOUDY A Urine pH 5.0 Urine Specific [place] 1.018 Urine Ketones NEGATIVE Urine Nitrite NEGATIVE Urine Bilirubin NEGATIVE Urine Urobilinogen 2+ H Urine Leukocyte Esterase NEGATIVE Urine Microscopic RBC 44 H Urine Microscopic WBC 5 Urine Mucus FEW A Urine Hemoglobin 2+ H Urine Random Creatinine 126.37 Urine Random Sodium 41 Urine Glucose NEGATIVE Urine Total Protein 42.0 H Urine Opiates Screen Positive Urine Barbiturates Negative Urine Amphetamines Screen POSITIVE Urine Benzodiazepines Screen Negative Urine Cocaine Screen Negative Urine Cannabinoids Negative White Blood Count 8.6 Red Blood Count 5.84 Hemoglobin 14.1 Hematocrit 47.3 Mean Corpuscular Volume 81.0 L Mean Corpuscular Hemoglobin 24.1 L Mean Corpuscular Hemoglobin Concent 29.8 L Red Cell Distribution Width 19.2 H Platelet Count 184 Mean Platelet Volume 10.6 H Immature Granulocytes % 0.700 H Neutrophils % 70.5 Lymphocytes % 14.7 L Monocytes % 12.3 H Eosinophils % 1.5 Basophils % 0.3 Nucleated Red Blood Cells % 0.0 Immature Granulocytes # 0.060 H Neutrophils # 6.1 Lymphocytes # 1.3 Monocytes # 1.1 H Eosinophils # 0.1 Basophils # 0.0 Nucleated Red Blood Cells # 0.0 Sodium Level 135 Potassium Level 4.3 Chloride Level 99 Carbon Dioxide Level 27 Anion Gap 9 Blood Urea Nitrogen 48 H Creatinine 1.69 H Est Glomerular Filtrat Rate mL/min 43 L Glucose Level 92 Calcium Level 9.2 Phosphorus Level 4.0 Magnesium Level 2.0 Total Bilirubin 0.5 Direct Bilirubin 0.00 # Indirect Bilirubin 0.5 Aspartate Amino Transf (AST/SGOT) 37 Alanine Aminotransferase (ALT/SGPT) 68 Alkaline Phosphatase 103 Total Protein 5.9 L Albumin 3.4 Globulin 2.50 Albumin/Globulin Ratio 1.36 Subjective 24 Hr Interval Summary Free Text/Dictation Patient lethargic but answering questions appropriately. States feeling better and currently on high flow with no respiratory distress. No acute overnight events. Exam/Review of Systems Exam Vitals Vital Signs Date Temp Pulse Resp B/P (MAP) Pulse Ox O2 O2 Flow FiO2 Time Delivery Rate 11/06/18 100 40 08:36 11/06/18 90 17 Nasal 08:34 Cannula 11/06/18 140/96 06:59 (111) 11/06/18 98.3 04:00 11/05/18 20.0 06:00 Intake and Output 11/05/18 11/05/18 11/06/18 1515:00 23:00 07:00 IntakeIntake Total 920 ml 470 ml 236.6 ml OutputOutput Total 965 ml 360 ml 300 ml BalanceBalance -45 ml 110 ml -63.4 ml Exam General: no acute distress. high flow in place. Chest: Nontender Lungs: Diminished breath sounds bilaterally, no wheezing, accessory muscle use Heart: S1, S2, regular rate and rhythm, , no murmurs Abdomen: Soft , nontender, protuberant, no rebound or guarding, +BS Extremities: trace bilateral edema of the lower extremities Skin: Multiple tattoos, abrasions and scabs on LE Results Results 24hrs Laboratory Tests Test 11/05/18 18:00 11/06/18 04:29 Urine Color LEWIS Urine Clarity SLIGHTLY CLOUDY A Urine pH 5.0 Urine Specific [place] 1.018 Urine Ketones NEGATIVE Urine Nitrite NEGATIVE Urine Bilirubin NEGATIVE Urine Urobilinogen 2+ H Urine Leukocyte Esterase NEGATIVE Urine Microscopic RBC 44 H Urine Microscopic WBC 5 Urine Mucus FEW A Urine Hemoglobin 2+ H Urine Random Creatinine 126.37 Urine Random Sodium 41 Urine Glucose NEGATIVE Urine Total Protein 42.0 H Urine Opiates Screen Positive Urine Barbiturates Negative Urine Amphetamines Screen POSITIVE Urine Benzodiazepines Screen Negative Urine Cocaine Screen Negative Urine Cannabinoids Negative White Blood Count 8.6 Red Blood Count 5.84 Hemoglobin 14.1 Hematocrit 47.3 Mean Corpuscular Volume 81.0 L Mean Corpuscular Hemoglobin 24.1 L Mean Corpuscular Hemoglobin Concent 29.8 L Red Cell Distribution Width 19.2 H Platelet Count 184 Mean Platelet Volume 10.6 H Immature Granulocytes % 0.700 H Neutrophils % 70.5 Lymphocytes % 14.7 L Monocytes % 12.3 H Eosinophils % 1.5 Basophils % 0.3 Nucleated Red Blood Cells % 0.0 Immature Granulocytes # 0.060 H Neutrophils # 6.1 Lymphocytes # 1.3 Monocytes # 1.1 H Eosinophils # 0.1 Basophils # 0.0 Nucleated Red Blood Cells # 0.0 Sodium Level 135 Potassium Level 4.3 Chloride Level 99 Carbon Dioxide Level 27 Anion Gap 9 Blood Urea Nitrogen 48 H Creatinine 1.69 H Est Glomerular Filtrat Rate mL/min 43 L Glucose Level 92 Calcium Level 9.2 Phosphorus Level 4.0 Magnesium Level 2.0 Total Bilirubin 0.5 Direct Bilirubin 0.00 # Indirect Bilirubin 0.5 Aspartate Amino Transf (AST/SGOT) 37 Alanine Aminotransferase (ALT/SGPT) 68 Alkaline Phosphatase 103 Total Protein 5.9 L Albumin 3.4 Globulin 2.50 Albumin/Globulin Ratio 1.36 Medications Medication Current Medications Aspirin (Halfprin) 81 mg DAILY PO Last administered on 11/05/18at 09:40; Admin Dose 81 MG; Start 11/04/18 at 09:00 Enalapril Maleate (Vasotec) 2.5 mg DAILY PO ; Start 11/04/18 at 09:00; Status Hold Spironolactone (Aldactone) 100 mg BID PO Last administered on 11/05/18at 21:23; Admin Dose 100 MG; Start 11/04/18 at 03:00 IV Flush (NS 3 ml) 3 ml PER PROTOCOL IV ; Start 11/04/18 at 03:00 Ondansetron HCl (Zofran Inj) 4 mg Q4H PRN IV NAUSEA/VOMITING Last administered on 11/04/18at 08:07; Admin Dose 4 MG; Start 11/04/18 at 03:00 Acetaminophen (Tylenol Tab) 650 mg Q6H PRN PO .PAIN 1-3 OR TEMP; Start 11/04/18 at 03:00 Docusate Sodium (Colace) 100 mg Q12H PRN PO .CONSTIPATION; Start 11/04/18 at 03:00 Bisacodyl (Dulcolax) 5 mg DAILY PRN PO .CONSTIPATION; Start 11/04/18 at 03:00 Pantoprazole (Protonix Tab) 40 mg DAILY@06 PO Last administered on 11/06/18 06:14; Admin Dose 40 MG; Start 11/04/18 at 06:00 Furosemide (Lasix) 40 mg BID DIURETICS IV Last administered on 11/06/18 06:14; Admin Dose 40 MG; Start 11/04/18 at 03:00 Vancomycin HCl (Vanco Iv Per Pharmacy) VANCOMYCIN PER PHARMACY PER PROTOCOL XX ; Start 11/04/18 at 03:00 Levalbuterol (Xopenex Neb) 1.25 mg Q4H RESP THERAPY PRN HHN SHORTNESS OF BREATH Last administered on 11/06/18 08:33; Admin Dose 1.25 MG; Start 11/04/18 at 04:00 Lorazepam (Ativan) 1 mg Q10MIN PRN IV seizures/withdrawal Last administered on 11/04/18 14:21; Admin Dose 1 MG; Start 11/04/18 at 10:00 Dicyclomine HCl (Bentyl) 10 mg QID PRN PO abdominal cramps; Start 11/04/18 at 10:00 Clonidine (Catapres) 0.1 mg Q6H PRN PO SBP >160; Start 11/04/18 at 10:00 Carvedilol (Coreg) 6.25 mg BID PO Last administered on 11/05/18 21:24; Admin Dose 6.25 MG; Start 11/04/18 at 10:00 Lorazepam (Ativan) 0.5 mg Q4H PRN IV anxiety, agitation Last administered on 3/21/19at 14:05; Admin Dose 0.5 MG; Start 11/04/18 at 16:00 Mupirocin (Bactroban) 1 applic BID TOP Last administered on 11/05/18at 21:24; A dmin Dose 1 APPLIC; Start 11/05/18 at 09:00; Stop 11/12/18 at 08:59 Cefepime HCl 50 ml @ 100 mls/hr Q12 IVPB Last administered on 11/05/18at 21:23; Admin Dose 100 MLS/HR; Start 11/05/18 at 21:00 Enoxaparin Sodium (Lovenox) 40 mg DAILY SC Last administered on 11/05/18at 14:17; Admin Dose 40 MG; Start 11/05/18 at 10:00 Acetaminophen/ Hydrocodone Bitart ([place] (5/325)) 1 tab Q4H PRN PO .PAIN 4-6; Start 11/05/18 at 15:00 Acetaminophen/ Hydrocodone Bitart ([place] (10/325)) 1 tab Q6H PRN PO PAIN LEVEL 7-10; Start 11/05/18 at 14:00 Morphine Sulfate (morphine) 2 mg Q4H PRN IV SEVERE PAIN LEVEL 7-10 Last administered on 11/06/18at 03:39; Admin Dose 2 MG; Start 11/05/18 at 14:30 Vancomycin/Sodium Chloride 250 ml @ 125 mls/hr Q12H IVPB Last administered on 11/06/18at 03:31; Admin Dose 125 MLS/HR; Start 11/05/18 at 16:00 Miscellaneous Information (*Rx Drug Level Order Reminder*) VANCO TROUGH @ 1,500 ONCE ONCE XX ; Start 11/06/18 at 15:00; Stop 11/06/18 at 15:01 DAMEON MADRIGAL MD Nov 06, 2018 08:49
[2018-11-06] MEDS: ENOXAPARIN 40 MG/0.4 ML SYG SC SCH (08:51)
[2018-11-06] MEDS: MUPIROCIN 2% 22 GM OINT TOP SCH ×2 (08:53→21:00)
--- NOTE | 2018-11-06 08:56 | CONS ---
Assessment/Plan Assessment/Plan Assessment/Plan (Daily) Patient is currently on high flow nasal cannula at 45% FiO2 30 L/min. Assessment recommendations; 1. Patient admitted with hypoxemia due to CHF exacerbation with interval clinical improvement. Currently on appropriate diuretic regimen. 2. Right lower lobe pneumonia, with continually improving leukocytosis. 3. Chronic renal insufficiency. Serum creatinine is improving. 4. Cirrhosis of liver no significant ascites seen on ultrasound of the abdomen. 5. Scrotal edema with interval improvement combination of CHF and cirrhosis. 6. History of hypertension. 7. History of drug abuse. Continue current supportive care. Transfer to medical floor. Wean down FiO2 as tolerated. Chest x-ray from today is pending. Consultation Date/Type/Reason Admit Date/Time Nov 04, 2018 at 01:51 Initial Consult Date 11/05/18 Type of Consult Pulmonary/critical care Patient is a 48-year-old male who came into the emergency room yesterday with a 2-day history of increasing shortness of breath. Upon evaluation patient had a chest x-ray which is showing mild CHF with right lower lobe pneumonia. Patient has been admitted to ICU and is currently on BiPAP. The patient also was initially quite agitated but by the time I saw the patient appeared completely calm and was responsive appropriately. Patient also did not appear to be in any distress whatsoever. He denies any further shortness of breath, any chest pain, nausea, vomiting, any abdominal pain. Past medical history; 1. CHF. 2. Hepatitis C with cirrhosis. 3. History of hypertension. 4. History of drug abuse. 5. Possibly sleep apnea. 6. Likely underlying chronic renal insufficiency as well. Medications; reviewed. Allergies; none. Social history; positive for intravenous drug abuse. Occupational history; patient is on disability. Family history; noncontributory. Review of systems; denies any headache, chest pain, shortness of breath has improved. Denies any abdominal pain, nausea vomiting. Any diarrhea. Complains of generalized swelling. General exam; young male, laying comfortably in bed on BiPAP. Currently in no distress. Date/Time of Note DATE: 11/06/18 TIME: 08:53 24 HR Interval Summary Free Text/Dictation Patient's condition is stable. Denies any shortness of breath, chest pain. Patient has not exhibited any further agitation. General exam; middle-aged male, Awake and alert. Currently in no distress. On high flow nasal cannula. Exam/Review of Systems Exam Vitals Vital Signs Date Temp Pulse Resp B/P (MAP) Pulse Ox O2 O2 Flow FiO2 Time Delivery Rate 11/06/18 100 40 08:36 11/06/18 90 17 Nasal 08:34 Cannula 11/06/18 140/96 06:59 (111) 11/06/18 98.3 04:00 11/05/18 20.0 06:00 Intake and Output 11/05/18 11/05/18 11/06/18 1515:00 23:00 07:00 IntakeIntake Total 920 ml 470 ml 236.6 ml OutputOutput Total 965 ml 360 ml 300 ml BalanceBalance -45 ml 110 ml -63.4 ml Exam H EENT exam; supple neck, no lymphadenopathy. Midline trachea. No thyromegaly. Patient is edentulous. On high flow nasal cannula. Chest exam; diminished breath sounds bilaterally. No added sounds. S1-S2 audible, no murmurs. Regular rhythm. Abdomen exam; soft, no organomegaly. Protuberant. Bowel sounds audible. There is reduction in scrotal edema. Extremity exam; trace peripheral edema. [employer] exam; no focal deficit. Results Result Diagram: 11/06/18 0429 11/06/18 0429 Results 24hrs Laboratory Tests Test 11/05/18 18:00 11/06/18 04:29 Urine Color LEWIS Urine Clarity SLIGHTLY CLOUDY A Urine pH 5.0 Urine Specific [place] 1.018 Urine Ketones NEGATIVE Urine Nitrite NEGATIVE Urine Bilirubin NEGATIVE Urine Urobilinogen 2+ H Urine Leukocyte Esterase NEGATIVE Urine Microscopic RBC 44 H Urine Microscopic WBC 5 Urine Mucus FEW A Urine Hemoglobin 2+ H Urine Random Creatinine 126.37 Urine Random Sodium 41 Urine Glucose NEGATIVE Urine Total Protein 42.0 H Urine Opiates Screen Positive Urine Barbiturates Negative Urine Amphetamines Screen POSITIVE Urine Benzodiazepines Screen Negative Urine Cocaine Screen Negative Urine Cannabinoids Negative White Blood Count 8.6 Red Blood Count 5.84 Hemoglobin 14.1 Hematocrit 47.3 Mean Corpuscular Volume 81.0 L Mean Corpuscular Hemoglobin 24.1 L Mean Corpuscular Hemoglobin Concent 29.8 L Red Cell Distribution Width 19.2 H Platelet Count 184 Mean Platelet Volume 10.6 H Immature Granulocytes % 0.700 H Neutrophils % 70.5 Lymphocytes % 14.7 L Monocytes % 12.3 H Eosinophils % 1.5 Basophils % 0.3 Nucleated Red Blood Cells % 0.0 Immature Granulocytes # 0.060 H Neutrophils # 6.1 Lymphocytes # 1.3 Monocytes # 1.1 H Eosinophils # 0.1 Basophils # 0.0 Nucleated Red Blood Cells # 0.0 Sodium Level 135 Potassium Level 4.3 Chloride Level 99 Carbon Dioxide Level 27 Anion Gap 9 Blood Urea Nitrogen 48 H Creatinine 1.69 H Est Glomerular Filtrat Rate mL/min 43 L Glucose Level 92 Calcium Level 9.2 Phosphorus Level 4.0 Magnesium Level 2.0 Total Bilirubin 0.5 Direct Bilirubin 0.00 # Indirect Bilirubin 0.5 Aspartate Amino Transf (AST/SGOT) 37 Alanine Aminotransferase (ALT/SGPT) 68 Alkaline Phosphatase 103 Total Protein 5.9 L Albumin 3.4 Globulin 2.50 Albumin/Globulin Ratio 1.36 Medications Medication Current Medications Aspirin (Halfprin) 81 mg DAILY PO Last administered on 11/05/18at 09:40; Admin Dose 81 MG; Start 11/04/18 at 09:00 Enalapril Maleate (Vasotec) 2.5 mg DAILY PO ; Start 11/04/18 at 09:00; Status Hold Spironolactone (Aldactone) 100 mg BID PO Last administered on 11/05/18at 21:23; Admin Dose 100 MG; Start 11/04/18 at 03:00 IV Flush (NS 3 ml) 3 ml PER PROTOCOL IV ; Start 11/04/18 at 03:00 Ondansetron HCl (Zofran Inj) 4 mg Q4H PRN IV NAUSEA/VOMITING Last administered on 11/04/18at 08:07; Admin Dose 4 MG; Start 11/04/18 at 03:00 Acetaminophen (Tylenol Tab) 650 mg Q6H PRN PO .PAIN 1-3 OR TEMP; Start 11/04/18 at 03:00 Docusate Sodium (Colace) 100 mg Q12H PRN PO .CONSTIPATION; Start 11/04/18 at 03:00 Bisacodyl (Dulcolax) 5 mg DAILY PRN PO .CONSTIPATION; Start 11/04/18 at 03:00 Pantoprazole (Protonix Tab) 40 mg DAILY@06 PO Last administered on 11/06/18at 06:14; Admin Dose 40 MG; Start 11/04/18 at 06:00 Furosemide (Lasix) 40 mg BID DIURETICS IV Last administered on 11/06/18 06:14; Admin Dose 40 MG; Start 11/04/18 at 03:00 Vancomycin HCl (Vanco Iv Per Pharmacy) VANCOMYCIN PER PHARMACY PER PROTOCOL XX ; Start 11/04/18 at 03:00 Levalbuterol (Xopenex Neb) 1.25 mg Q4H RESP THERAPY PRN HHN SHORTNESS OF BREATH Last administered on 11/06/18at 08:33; Admin Dose 1.25 MG; Start 11/04/18 at 04:00 Lorazepam (Ativan) 1 mg Q10MIN PRN IV seizures/withdrawal Last administered on 11/04/18 14:21; Admin Dose 1 MG; Start 11/04/18 at 10:00 Dicyclomine HCl (Bentyl) 10 mg QID PRN PO abdominal cramps; Start 11/04/18 at 10:00 Clonidine (Catapres) 0.1 mg Q6H PRN PO SBP >160; Start 11/04/18 at 10:00 Carvedilol (Coreg) 6.25 mg BID PO Last administered on 11/05/18at 21:24; Admin Dose 6.25 MG; Start 11/04/18 at 10:00 Lorazepam (Ativan) 0.5 mg Q4H PRN IV anxiety, agitation Last administered on 11/05/18at 14:05; Admin Dose 0.5 MG; Start 11/04/18 at 16:00 Mupirocin (Bactroban) 1 applic BID TOP Last administered on 11/05/18 21:24; Admin Dose 1 APPLIC; Start 11/05/18 at 09:00; Stop 11/12/18 at 08:59 Cefepime HCl 50 ml @ 100 mls/hr Q12 IVPB Last administered on 11/05/18 21:23; Admin Dose 100 MLS/HR; Start 11/05/18 at 21:00 Enoxaparin Sodium (Lovenox) 40 mg DAILY SC Last administered on 11/05/18at 14:17; Admin Dose 40 MG; Start 11/05/18 at 10:00 Acetaminophen/ Hydrocodone Bitart ([place] (5/325)) 1 tab Q4H PRN PO .PAIN 4-6; Start 11/05/18 at 15:00 Acetaminophen/ Hydrocodone Bitart ([place] ()) 1 tab Q6H PRN PO PAIN LEVEL 7-10; Start 11/05/18 at 14:00 Morphine Sulfate (morphine) 2 mg Q4H PRN IV SEVERE PAIN LEVEL 7-10 Last a dministered on 11/06/18at 03:39; Admin Dose 2 MG; Start 11/05/18 at 14:30 Vancomycin/Sodium Chloride 250 ml @ 125 mls/hr Q12H IVPB Last administered on 11/06/18at 03:31; Admin Dose 125 MLS/HR; Start 11/05/18 at 16:00 Miscellaneous Information (*Rx Drug Level Order Reminder*) VANCO TROUGH @ 1,500 ONCE ONCE XX ; Start 11/06/18 at 15:00; Stop 11/06/18 at 15:01 SHABNAM CHINO Nov 06, 2018 08:56
[2018-11-06] MEDS: LORAZEPAM 2 MG INJ IV PRN (09:09)
[2018-11-07] VITALS (12 sets, daily range): BP systolic 107–123; BP diastolic 60–81; PULSE 65–87; RESP 18–21
[2018-11-07] MEDS: LEVALBUTEROL (NEB) 1.25 MG/0.5 ML AMP HHN PRN ×4 (01:33→22:12)
[2018-11-07] MEDS: morphine 2 MG INJ IV PRN ×4 (03:30→20:15)
[2018-11-07] MEDS: FUROSEMIDE 40 MG INJ IV SCH ×2 (05:44→18:04)
[2018-11-07] MEDS: PANTOPRAZOLE (EC) 40 MG TAB PO SCH (05:44)
[2018-11-07] MEDS: HYDROCODONE/APAP (10/325) TAB PO PRN ×2 (06:14→18:04)
[2018-11-07] MEDS: LORAZEPAM 2 MG INJ IV PRN ×2 (06:16→22:09)
[2018-11-07] MEDS: VANCOMYCIN 500 MG (PMX) 100 ML IVPB SCH ×2 (06:42→15:47)
[2018-11-07] MEDS: CEFEPIME 1GM/50 ML (PMX) 50 ML IVPB SCH (08:52)
[2018-11-07] MEDS: ENOXAPARIN 40 MG/0.4 ML SYG SC SCH (09:02)
--- NOTE | 2018-11-07 09:37 | PN ---
DATE: 11/07/2018 SUBJECTIVE: The patient was transferred from intensive care unit to telemetry. No other events note d. The patient remains agitated. OBJECTIVE: VITAL SIGNS: Blood pressure is 107/81, pulse 79, respiration 21, temperature 97.4. HEENT: Head is normocephalic. NECK: Supple. HEART: Regular rate. LUNGS: Show diminished breath sounds at the base. ABDOMEN: Soft, nontender to palpation without rebound or guarding. EXTREMITIES: Negative for clubbing, cyanosis. Positive edema. DERMATOLOGIC: No rashes. MUSCULOSKELETAL: No joint effusion. NEUROLOGIC: No change in exam. MEDICATIONS: Reviewed. LABORATORY DATA: From 11/07/2018 is pending. ASSESSMENT AND PLAN: 1. Nonoliguric acute kidney injury on top of chronic kidney disease with previous baseline creatinin e around 1.5 mg/dL. Etiology is multifactorial secondary to hemodynamics, cardiorenal syndrome, poss ible nephrotoxicity from amphetamine use. The patient's renal function has been improving with diure tic therapy. At this point, continue current treatment plan, supportive care, renally dose all meds, monitor closely. 2. Acute systolic, diastolic heart failure. Continue current medical management. Continue diuretic regimen. Monitor I's and O's and electrolytes closely. 3. Mineral bone disorder. Monitor calcium and phosphorus levels. 4. Acute hypoxemic respiratory failure secondary to congestive heart failure, possible pneumonia. C ontinue medical management. Continue high flow oxygen, diuretics, antibiotics, nebulizers. 5. Possible pneumonia. Continue current antibiotic regimen. 6. History of liver cirrhosis. Continue to monitor. 7. History of chronic obstructive pulmonary disease. Continue medical management. 8. Polysubstance abuse. Monitor for withdrawal. Dictated By: NHAN ESPINOZA/ELDA Conf#: [id number] DID#: [id number] CC: LULY MCDONALD MD;*EndCC*
--- NOTE | 2018-11-07 11:25 | CONS ---
Assessment/Plan Cardiology NYHA: II Heart Failure Type: Acute on Chronic Heart Failure Type: Systolic Assessment/Plan Assessment/Plan (Daily) Assessment Acute decompensated systolic congestive heart failure Cardiomyopathy with left ventricular ejection fraction 15-20% Respiratory failure, on high flow oxygen Recent methamphetamine use Possible sepsis MARIBEL Plan: diuresis monintor I and O Consultation Date/Type/Reason Admit Date/Time Nov 04, 2018 at 01:51 Initial Consult Date 11/05/18 Type of Consult Cardiology Date/Time of Note DATE: 11/07/18 TIME: 11:24 24 HR Interval Summary Free Text/Dictation able to lie supine, no chest pain, no sob Detailed Summary Respiratory: no complaints Cardiovascular: no complaints Gastrointestinal: no complaints Musculoskeletal: no complaints Skin: no complaints Neurologic: no complaints Exam/Review of Systems Vital Signs Vitals Vital Signs Date Temp Pulse Resp B/P (MAP) Pulse Ox O2 O2 Flow FiO2 Time Delivery Rate 11/07/18 99 5.0 09:04 11/07/18 79 22 Nasal 09:04 Cannula 11/07/18 97.4 107/81 07:36 (90) 11/07/18 30 03:20 Intake and Output 11/06/18 11/06/18 11/07/18 1414:59 22:59 06:59 IntakeIntake Total 450 ml 1020 ml 900 ml OutputOutput Total 675 ml 400 ml BalanceBalance -225 ml 620 ml 900 ml Exam Head: normocephalic, atraumatic Neck: jvd Respiratory: clear to auscultation Cardiovascular: regular rate and rhythm Gastrointestinal: soft Musculoskeletal: nl extremities to inspection Labs Result Diagram: 11/06/18 0429 11/06/18 0429 Results 24hrs Laboratory Tests Test 11/06/18 14:53 Vancomycin Level Trough 16.8 Medications Medications Current Medications Aspirin (Halfprin) 81 mg DAILY PO Last administered on 11/06/18at 08:50; Admin Dose 81 MG; Start 11/04/18 at 09:00 Enalapril Maleate (Vasotec) 2.5 mg DAILY PO ; Start 11/04/18 at 09:00; Status Hold Spironolactone (Aldactone) 100 mg BID PO Last administered on 11/06/18at 21:40; Admin Dose 100 MG; Start 11/04/18 at 03:00 IV Flush (NS 3 ml) 3 ml PER PROTOCOL IV ; Start 11/04/18 at 03:00 Ondansetron HCl (Zofran Inj) 4 mg Q4H PRN IV NAUSEA/VOMITING Last administered on 11/04/18 08:07; Admin Dose 4 MG; Start 11/04/18 at 03:00 Acetaminophen (Tylenol Tab) 650 mg Q6H PRN PO .PAIN 1-3 OR TEMP; Start 11/04/18 at 03:00 Docusate Sodium (Colace) 100 mg Q12H PRN PO .CONSTIPATION; Start 11/04/18 at 03:00 Bisacodyl (Dulcolax) 5 mg DAILY PRN PO .CONSTIPATION; Start 11/04/18 at 03:00 Pantoprazole (Protonix Tab) 40 mg DAILY@06 PO Last administered on 11/07/18 05:44; Admin Dose 40 MG; Start 11/04/18 at 06:00 Furosemide (Lasix) 40 mg BID DIURETICS IV Last administered on 11/07/18 05:44; Admin Dose 40 MG; Start 11/04/18 at 03:00 Vancomycin HCl (Vanco Iv Per Pharmacy) VANCOMYCIN PER PHARMACY PER PROTOCOL XX ; Start 11/04/18 at 03:00 Levalbuterol (Xopenex Neb) 1.25 mg Q4H RESP THERAPY PRN HHN SHORTNESS OF BREATH Last administered on 11/07/18 09:04; Admin Dose 1.25 MG; Start 11/04/18 at 04:00 Lorazepam (Ativan) 1 mg Q10MIN PRN IV seizures/withdrawal Last administered on 11/06/18 09:09; Admin Dose 1 MG; Start 11/04/18 at 10:00 Dicyclomine HCl (Bentyl) 10 mg QID PRN PO abdominal cramps; Start 11/04/18 at 10:00 Clonidine (Catapres) 0.1 mg Q6H PRN PO SBP >160; Start 11/04/18 at 10:00 Carvedilol (Coreg) 6.25 mg BID PO Last administered on 11/06/18 21:40; Admin Dose 6.25 MG; Start 11/04/18 at 10:00 Lorazepam (Ativan) 0.5 mg Q4H PRN IV anxiety, agitation Last administered on 11/07/18 06:16; Admin Dose 0.5 MG; Start 11/04/18 at 16:00 Mupirocin (Bactroban) 1 applic BID TOP Last administered on 11/06/18at 08:53; Admin Dose 1 APPLIC; Start 11/05/18 at 09:00; Stop 11/12/18 at 08:59 Cefepime HCl 50 ml @ 100 mls/hr Q12 IVPB Last administered on 11/07/18 08:52; Admin Dose 100 MLS/HR; Start 11/05/18 at 21:00 Enoxaparin Sodium (Lovenox) 40 mg DAILY SC Last administered on 11/07/18at 09:02; Admin Dose 40 MG; Start 11/05/18 at 10:00 Acetaminophen/ Hydrocodone Bitart ([place] (5/325)) 1 tab Q4H PRN PO .PAIN 4-6; Start 11/05/18 at 15:00 Acetaminophen/ Hydrocodone Bitart ([place] (10/325)) 1 tab Q6H PRN PO PAIN LEVEL 7-10 Last administered on 11/07/18at 06:14; Admin Dose 1 TAB; Start 11/05/18 at 14:00 Morphine Sulfate (morphine) 2 mg Q4H PRN IV SEVERE PAIN LEVEL 7-10 Last administered on 11/07/18at 03:30; Admin Dose 2 MG; Start 11/05/18 at 14:30 Vancomycin HCl 100 ml @ 100 mls/hr Q12H IVPB Last administered on 11/07/18at 06:42; Admin Dose 100 MLS/HR; Start 11/07/18 at 04:00 RINA DE LUNA MD Nov 07, 2018 11:25
[2018-11-07] MEDS: SPIRONOLACTONE 50 MG TAB PO SCH ×2 (11:34→20:11)
[2018-11-07] MEDS: ASPIRIN (EC) 81 MG TAB PO SCH (11:35)
[2018-11-07] MEDS: MUPIROCIN 2% 22 GM OINT TOP SCH ×2 (11:35→20:12)
--- NOTE | 2018-11-07 17:20 | CONS ---
Consult Date/Type/Reason Admit Date/Time Nov 04, 2018 at 01:51 Initial Consult Date 11/05/18 Type of Consultation: Pulm Date/Time of Note DATE: 11/07/18 TIME: 17:17 Subjective No events. Decreased oxygen requirements. Objective Vitals Vital Signs Date Temp Pulse Resp B/P (MAP) Pulse Ox O2 O2 Flow FiO2 Time Delivery Rate 11/07/18 97 30 16:05 11/07/18 3.0 16:05 11/07/18 81 16:01 11/07/18 97.2 18 123/80 15:27 (94) 11/07/18 Nasal 09:04 Cannula Intake and Output 11/06/18 11/06/18 11/07/18 1515:00 23:00 07:00 IntakeIntake Total 450 ml 1020 ml 900 ml OutputOutput Total 575 ml 400 ml BalanceBalance -125 ml 620 ml 900 ml Exam HEENT: Neck supple; no JVD; no LAD CVS: RRR, S1 and S2, 3/6 systolic murmur CHEST: Reduced right basilar breath sounds ABD: Soft, NT, + BS EXT: No c/c; + edema Results/Medications Result Diagram: 11/07/18 1105 11/07/18 1105 Results 24 hrs Laboratory Tests Test 11/07/18 11:05 11/07/18 11:44 White Blood Count 8.6 Red Blood Count 5.97 Hemoglobin 14.4 Hematocrit 48.3 Mean Corpuscular Volume 80.9 L Mean Corpuscular Hemoglobin 24.1 L Mean Corpuscular Hemoglobin Concent 29.8 L Red Cell Distribution Width 19.0 H Platelet Count 213 Mean Platelet Volume 10.8 H Immature Granulocytes % 0.600 H Neutrophils % 64.4 Lymphocytes % 20.1 Monocytes % 13.0 H Eosinophils % 1.6 Basophils % 0.3 Nucleated Red Blood Cells % 0.0 Immature Granulocytes # 0.050 H Neutrophils # 5.5 Lymphocytes # 1.7 Monocytes # 1.1 H Eosinophils # 0.1 Basophils # 0.0 Nucleated Red Blood Cells # 0.0 Sodium Level 134 L Potassium Level 4.6 Chloride Level 96 L Carbon Dioxide Level 30 Anion Gap 8 Blood Urea Nitrogen 53 H Creatinine 1.63 H Est Glomerular Filtrat Rate mL/min 45 L Glucose Level 88 Calcium Level 9.2 Phosphorus Level 3.5 Magnesium Level 1.9 Total Bilirubin 0.6 Direct Bilirubin 0.00 Indirect Bilirubin 0.6 Aspartate Amino Transf (AST/SGOT) 51 H Alanine Aminotransferase (ALT/SGPT) 73 H Alkaline Phosphatase 117 Total Protein 5.7 L Albumin 3.4 Globulin 2.30 Albumin/Globulin Ratio 1.47 Lab Scanned Report REFERENCE LAB Home Meds Active Scripts Carvedilol* (Carvedilol*) 6.25 Mg Tablet, 6.25 MG PO BID, #60 TAB Prov:JOSE BRADY MD 10/06/18 Furosemide* (Lasix*) 40 Mg Tablet, 40 MG PO BID, #60 TAB 1 Refill Take with Aldactone at the same time, try to take evening dose of both Lasix and Aldactone before 6 PM as to not effect your sleep Prov:JOSE BRADY MD 10/06/18 Spironolactone* (Aldactone*) 50 Mg Tablet, 100 MG PO BID, #60 TAB 1 Refill Prov:JOSE BRADY MD 10/06/18 Enalapril Maleate* (Enalapril Maleate*) 2.5 Mg Tablet, 2.5 MG PO DAILY, #60 TAB 0 Refills Prov:JOSE BRADY MD 10/06/18 Albuterol Sulfate* (Proair HFA*) 8.5 Gm Hfa.aer.ad, 2 PUFF INH Q6 for SOB, #1 INHALER Prov:JOSE BRADY MD 10/06/18 Reported Medications Aspirin Ec (Aspir 81) 81 Mg Tablet.dr, 81 MG PO DAILY, #30 TAB 11/03/18 Discontinued Scripts Levofloxacin* (Levofloxacin*) 750 Mg Tablet, 750 MG PO DAILY for 4 Days, #4 TAB Prov:JOSE BRADY MD 10/06/18 Medications Current Medications Aspirin (Halfprin) 81 mg DAILY PO Last administered on 11/07/18at 11:35; Admin Dose 81 MG; Start 11/04/18 at 09:00 Enalapril Maleate (Vasotec) 2.5 mg DAILY PO ; Start 11/04/18 at 09:00; Status Hold Spironolactone (Aldactone) 100 mg BID PO Last administered on 11/07/18at 11:34; Admin Dose 100 MG; Start 11/04/18 at 03:00 IV Flush (NS 3 ml) 3 ml PER PROTOCOL IV ; Start 11/04/18 at 03:00 Ondansetron HCl (Zofran Inj) 4 mg Q4H PRN IV NAUSEA/VOMITING Last administered on 11/04/18 08:07; Admin Dose 4 MG; Start 11/04/18 at 03:00 Acetaminophen (Tylenol Tab) 650 mg Q6H PRN PO .PAIN 1-3 OR TEMP; Start 11/04/18 at 03:00 Docusate Sodium (Colace) 100 mg Q12H PRN PO .CONSTIPATION; Start 11/04/18 at 03:00 Bisacodyl (Dulcolax) 5 mg DAILY PRN PO .CONSTIPATION; Start 11/04/18 at 03:00 Pantoprazole (Protonix Tab) 40 mg DAILY@06 PO Last administered on 11/07/18 05:44; Admin Dose 40 MG; Start 11/04/18 at 06:00 Furosemide (Lasix) 40 mg BID DIURETICS IV Last administered on 11/07/18 05:44; Admin Dose 40 MG; Start 11/04/18 at 03:00 Vancomycin HCl (Vanco Iv Per Pharmacy) VANCOMYCIN PER PHARMACY PER PROTOCOL XX ; Start 11/04/18 at 03:00 Levalbuterol (Xopenex Neb) 1.25 mg Q4H RESP THERAPY PRN HHN SHORTNESS OF BREATH Last administered on 11/07/18 09:04; Admin Dose 1.25 MG; Start 11/04/18 at 04:00 Lorazepam (Ativan) 1 mg Q10MIN PRN IV seizures/withdrawal Last administered on 11/06/18 09:09; Admin Dose 1 MG; Start 11/04/18 at 10:00 Dicyclomine HCl (Bentyl) 10 mg QID PRN PO abdominal cramps; Start 11/04/18 at 10:00 Clonidine (Catapres) 0.1 mg Q6H PRN PO SBP >160; Start 11/04/18 at 10:00 Carvedilol (Coreg) 6.25 mg BID PO Last administered on 11/07/18 11:34; Admin Dose 6.25 MG; Start 11/04/18 at 10:00 Lorazepam (Ativan) 0.5 mg Q4H PRN IV anxiety, agitation Last administered on 11/07/18 06:16; Admin Dose 0.5 MG; Start 11/04/18 at 16:00 Mupirocin (Bactroban) 1 applic BID TOP Last administered on 11/07/18at 11:35; Admin Dose 1 APPLIC; Start 11/05/18 at 09:00; Stop 11/12/18 at 08:59 Cefepime HCl 50 ml @ 100 mls/hr Q12 IVPB Last administered on 11/07/18 08:52; Admin Dose 100 MLS/HR; Start 11/05/18 at 21:00 Enoxaparin Sodium (Lovenox) 40 mg DAILY SC Last administered on 11/07/18at 09:02; Admin Dose 40 MG; Start 11/05/18 at 10:00 Acetaminophen/ Hydrocodone Bitart ([place] (5/325)) 1 tab Q4H PRN PO .PAIN 4-6; Start 11/05/18 at 15:00 Acetaminophen/ Hydrocodone Bitart ([place] (10/325)) 1 tab Q6H PRN PO PAIN LEVEL 7-10 Last administered on 11/07/18at 06:14; Admin Dose 1 TAB; Start 11/05/18 at 14:00 Morphine Sulfate (morphine) 2 mg Q4H PRN IV SEVERE PAIN LEVEL 7-10 Last administered on 11/07/18at 15:26; Admin Dose 2 MG; Start 11/05/18 at 14:30 Vancomycin HCl 100 ml @ 100 mls/hr Q12H IVPB Last administered on 11/07/18at 15:47; Admin Dose 100 MLS/HR; Start 11/07/18 at 04:00 Assessment/Plan Assessment/Plan (Daily) IMP: 1. ADHF 2. Hypoxemic Resp Insufficiency 2/2 #1 3. Cardiomyopathy 4. Substance abuse 5. MARIBEL RECS: 1. De-escalate off abx 2. Follow I/O's, daily weights and renal fxn 3. Diuresis as per Cards CHARISSA MCCRACKEN MD Nov 07, 2018 17:20
--- NOTE | 2018-11-07 18:15 | PN ---
Date/Time of Note Date/Time of Note DATE: 11/07/18 TIME: 18:10 Assessment/Plan VTE Prophylaxis Risk score (from Ns)>0 risk: 7 SCD applied (from Ns): Yes Pharmacological prophylaxis: LMWH Lines/Catheters IV Catheter Type (from Nrs): Peripheral IV Urinary Cath still in place: Yes Reason Cath still needed: urinary retention Assessment/Plan Assessment/Plan 1. Acute shortness of breath, multifactorial- improving - Patient tolerating nasal canula and will wean O2 as tolerated 2. MARIBEL- improving - ATN vs prerenal vs cardiorenal - Nephrology consultation appreciated and will continue current regime - will avoid nephrotoxic agents 3. Acute on chronic systolic and diastolic heart failure - ECHO results noted and EF 15-20% which is a decline from 06/2018 - On Lasix and spironolactone - Cardiology consultation appreciated. 4. Sepsis secondary to PNA - remains afebrile with nl WBC. - Pulm on board and appreciate recommendations. Will d/c antibiotics 5. Liver cirrhosis secondary to Hep C - continue diuretics - will need outpatient therapy 6. COPD - PRN neb tx for SOB 7. Illicit drug use - reports recent methamphetamine use - Utox results noted 8. Disposition - Continue weaning O2 and diuresing. Monitor for improvement in renal function Result Diagram: 11/07/18 1105 11/07/18 1105 Results 24hrs Laboratory Tests Test 11/07/18 11:05 11/07/18 11:44 White Blood Count 8.6 Red Blood Count 5.97 Hemoglobin 14.4 Hematocrit 48.3 Mean Corpuscular Volume 80.9 L Mean Corpuscular Hemoglobin 24.1 L Mean Corpuscular Hemoglobin Concent 29.8 L Red Cell Distribution Width 19.0 H Platelet Count 213 Mean Platelet Volume 10.8 H Immature Granulocytes % 0.600 H Neutrophils % 64.4 Lymphocytes % 20.1 Monocytes % 13.0 H Eosinophils % 1.6 Basophils % 0.3 Nucleated Red Blood Cells % 0.0 Immature Granulocytes # 0.050 H Neutrophils # 5.5 Lymphocytes # 1.7 Monocytes # 1.1 H Eosinophils # 0.1 Basophils # 0.0 Nucleated Red Blood Cells # 0.0 Sodium Level 134 L Potassium Level 4.6 Chloride Level 96 L Carbon Dioxide Level 30 Anion Gap 8 Blood Urea Nitrogen 53 H Creatinine 1.63 H Est Glomerular Filtrat Rate mL/min 45 L Glucose Level 88 Calcium Level 9.2 Phosphorus Level 3.5 Magnesium Level 1.9 Total Bilirubin 0.6 Direct Bilirubin 0.00 Indirect Bilirubin 0.6 Aspartate Amino Transf (AST/SGOT) 51 H Alanine Aminotransferase (ALT/SGPT) 73 H Alkaline Phosphatase 117 Total Protein 5.7 L Albumin 3.4 Globulin 2.30 Albumin/Globulin Ratio 1.47 Lab Scanned Report REFERENCE LAB Subjective 24 Hr Interval Summary Free Text/Dictation Patient sleeping after given Ativan this am. No acute respiratory distress and tolerating NC. Exam/Review of Systems Exam Vitals Vital Signs Date Temp Pulse Resp B/P (MAP) Pulse Ox O2 O2 Flow FiO2 Time Delivery Rate 11/07/18 97 30 16:05 11/07/18 3.0 16:05 11/07/18 81 16:01 11/07/18 97.2 18 123/80 15:27 (94) 11/07/18 Nasal 09:04 Cannula Intake and Output 11/06/18 11/06/18 11/07/18 1515:00 23:00 07:00 IntakeIntake Total 450 ml 1020 ml 900 ml OutputOutput Total 575 ml 400 ml BalanceBalance -125 ml 620 ml 900 ml Exam General: no acute distress. sleeping. on NC Chest: Nontender Lungs: Diminished breath sounds bilaterally, mild expiratory wheezing Heart: S1, S2, regular rate and rhythm, , no murmurs Abdomen: Soft , nontender, protuberant, no rebound or guarding, +BS Extremities: trace bilateral edema of the lower extremities Skin: Multiple tattoos, abrasions and scabs on LE Results Results 24hrs Laboratory Tests Test 11/07/18 11:05 11/07/18 11:44 White Blood Count 8.6 Red Blood Count 5.97 Hemoglobin 14.4 Hematocrit 48.3 Mean Corpuscular Volume 80.9 L Mean Corpuscular Hemoglobin 24.1 L Mean Corpuscular Hemoglobin Concent 29.8 L Red Cell Distribution Width 19.0 H Platelet Count 213 Mean Platelet Volume 10.8 H Immature Granulocytes % 0.600 H Neutrophils % 64.4 Lymphocytes % 20.1 Monocytes % 13.0 H Eosinophils % 1.6 Basophils % 0.3 Nucleated Red Blood Cells % 0.0 Immature Granulocytes # 0.050 H Neutrophils # 5.5 Lymphocytes # 1.7 Monocytes # 1.1 H Eosinophils # 0.1 Basophils # 0.0 Nucleated Red Blood Cells # 0.0 Sodium Level 134 L Potassium Level 4.6 Chloride Level 96 L Carbon Dioxide Level 30 Anion Gap 8 Blood Urea Nitrogen 53 H Creatinine 1.63 H Est Glomerular Filtrat Rate mL/min 45 L Glucose Level 88 Calcium Level 9.2 Phosphorus Level 3.5 Magnesium Level 1.9 Total Bilirubin 0.6 Direct Bilirubin 0.00 Indirect Bilirubin 0.6 Aspartate Amino Transf (AST/SGOT) 51 H Alanine Aminotransferase (ALT/SGPT) 73 H Alkaline Phosphatase 117 Total Protein 5.7 L Albumin 3.4 Globulin 2.30 Albumin/Globulin Ratio 1.47 Lab Scanned Report [facility] LAB Medications Medication Current Medications Aspirin (Halfprin) 81 mg DAILY PO Last administered on 11/07/18 11:35; Admin Dose 81 MG; Start 11/04/18 at 09:00 Enalapril Maleate (Vasotec) 2.5 mg DAILY PO ; Start 11/04/18 at 09:00; Status Hold Spironolactone (Aldactone) 100 mg BID PO Last administered on 11/07/18 11:34; Admin Dose 100 MG; Start 11/04/18 at 03:00 IV Flush (NS 3 ml) 3 ml PER PROTOCOL IV ; Start 11/04/18 at 03:00 Ondansetron HCl (Zofran Inj) 4 mg Q4H PRN IV NAUSEA/VOMITING Last administered on 11/04/18at 08:07; Admin Dose 4 MG; Start 11/04/18 at 03:00 Acetaminophen (Tylenol Tab) 650 mg Q6H PRN PO .PAIN 1-3 OR TEMP; Start 11/04/18 at 03:00 Docusate Sodium (Colace) 100 mg Q12H PRN PO .CONSTIPATION; Start 11/04/18 at 03:00 Bisacodyl (Dulcolax) 5 mg DAILY PRN PO .CONSTIPATION; Start 11/04/18 at 03:00 Pantoprazole (Protonix Tab) 40 mg DAILY@06 PO Last administered on 11/07/18 05:44; Admin Dose 40 MG; Start 11/04/18 at 06:00 Furosemide (Lasix) 40 mg BID DIURETICS IV Last administered on 11/07/18at 18:04; Admin Dose 40 MG; Start 11/04/18 at 03:00 Levalbuterol (Xopenex Neb) 1.25 mg Q4H RESP THERAPY PRN HHN SHORTNESS OF BREATH Last administered on 11/07/18 09:04; Admin Dose 1.25 MG; Start 11/04/18 at 04:00 Lorazepam (Ativan) 1 mg Q10MIN PRN IV seizures/withdrawal Last administered on 11/06/18 09:09; Admin Dose 1 MG; Start 11/04/18 at 10:00 Dicyclomine HCl (Bentyl) 10 mg QID PRN PO abdominal cramps; Start 11/04/18 at 10:00 Clonidine (Catapres) 0.1 mg Q6H PRN PO SBP >160; Start 11/04/18 at 10:00 Carvedilol (Coreg) 6.25 mg BID PO Last administered on 11/07/18 11:34; Admin Dose 6.25 MG; Start 11/04/18 at 10:00 Lorazepam (Ativan) 0.5 mg Q4H PRN IV anxiety, agitation Last administered on 11/07/18 06:16; Admin Dose 0.5 MG; Start 11/04/18 at 16:00 Mupirocin (Bactroban) 1 applic BID TOP Last administered on 11/07/18 11:35; Admin Dose 1 APPLIC; Start 11/05/18 at 09:00; Stop 11/12/18 at 08:59 Enoxaparin Sodium (Lovenox) 40 mg DAILY SC Last administered on 11/07/18 09:02; Admin Dose 40 MG; Start 11/05/18 at 10:00 Acetaminophen/ Hydrocodone Bitart ([place] (5/325)) 1 tab Q4H PRN PO .PAIN 4-6; Start 11/05/18 at 15:00 Acetaminophen/ Hydrocodone Bitart ([place] (10/325)) 1 tab Q6H PRN PO PAIN LEVEL 7-10 Last administered on 11/07/18 18:04; Admin Dose 1 TAB; Start 11/05/18 at 14:00 Morphine Sulfate (morphine) 2 mg Q4H PRN IV SEVERE PAIN LEVEL 7-10 Last administered on 11/07/18 15:26; Admin Dose 2 MG; Start 11/05/18 at 14:30 DAMEON MADRIGAL MD Nov 07, 2018 18:15
[2018-11-08] VITALS (10 sets, daily range): BP systolic 99–115; BP diastolic 67–88; PULSE 55–83; RESP 18–20
[2018-11-08] MEDS: PANTOPRAZOLE (EC) 40 MG TAB PO SCH (06:37)
[2018-11-08] MEDS: FUROSEMIDE 40 MG INJ IV SCH ×2 (06:38→15:08)
[2018-11-08] MEDS: morphine 2 MG INJ IV PRN (06:51)
[2018-11-08] MEDS: SPIRONOLACTONE 50 MG TAB PO SCH (08:24)
[2018-11-08] MEDS: ASPIRIN (EC) 81 MG TAB PO SCH (08:24)
[2018-11-08] MEDS: ENOXAPARIN 40 MG/0.4 ML SYG SC SCH (08:37)
[2018-11-08] MEDS: LEVALBUTEROL (NEB) 1.25 MG/0.5 ML AMP HHN PRN ×2 (08:38→18:51)
[2018-11-08] MEDS: HYDROCODONE/APAP (10/325) TAB PO PRN (08:48)
[2018-11-08] MEDS ORDERED: morphine LIQ (10 MG/5 ML) CUP PO PRN (09:00)
[2018-11-08] MEDS ORDERED: INSULIN REGULAR, HUMAN 100 UNIT/1 ML 3ML VIAL IVP STA (09:25)
--- NOTE | 2018-11-08 09:26 | PN ---
Date/Time of Note Date/Time of Note DATE: 11/08/18 TIME: 09:26 Assessment/Plan VTE Prophylaxis Risk score (from Ns)>0 risk: 10 SCD applied (from Nsg): Yes Pharmacological prophylaxis: LMWH Lines/Catheters IV Catheter Type (from Nrs): Peripheral IV Urinary Cath still in place: Yes Reason Cath still needed: urinary retention Assessment/Plan Assessment/Plan 1. Acute shortness of breath, multifactorial- stable - Pulmonology on board and appreciate recommendations - Patient still requiring high flow and will continue diuresing - wean O2 requirement as tolerated 2. MARIBEL- improving - ATN vs prerenal vs cardiorenal - Nephrology consultation appreciated and will continue current regime - will avoid nephrotoxic agents 3. Acute on chronic systolic and diastolic heart failure - ECHO results noted and EF 15-20% which is a decline from 06/2018 - Aldactone on hold given hyperkalemia - Cardiology consultation appreciated. Bumex given this am while awaiting midline placement 4. Sepsis secondary to PNA- resolved - remains afebrile with nl WBC. - Pulm on board and appreciate recommendations. off antibiotics 5. Liver cirrhosis secondary to Hep C - continue diuretics - will need outpatient therapy 6. COPD - PRN neb tx for SOB 7. Illicit drug use - reports recent methamphetamine use - Utox results noted 8. Disposition - Continue weaning O2 and diuresing. Monitor for improvement in renal function Result Diagram: 11/08/18 0706 11/08/18 0706 Results 24hrs Laboratory Tests Test 11/07/18 11:05 11/07/18 11:44 11/08/18 07:06 White Blood Count 8.6 9.3 Red Blood Count 5.97 5.99 Hemoglobin 14.4 14.4 Hematocrit 48.3 49.2 Mean Corpuscular Volume 80.9 L 82.1 Mean Corpuscular Hemoglobin 24.1 L 24.0 L Mean Corpuscular 29.8 L 29.3 L Hemoglobin Concent Red Cell Distribution Width 19.0 H 19.4 H Platelet Count 213 217 Mean Platelet Volume 10.8 H 10.0 Immature Granulocytes % 0.600 H 0.900 H Neutrophils % 64.4 68.5 Lymphocytes % 20.1 17.6 Monocytes % 13.0 H 11.1 H Eosinophils % 1.6 1.5 Basophils % 0.3 0.4 Nucleated Red Blood Cells % 0.0 0.0 Immature Granulocytes # 0.050 H 0.080 H Neutrophils # 5.5 6.4 Lymphocytes # 1.7 1.6 Monocytes # 1.1 H 1.0 H Eosinophils # 0.1 0.1 Basophils # 0.0 0.0 Nucleated Red Blood Cells # 0.0 0.0 Sodium Level 134 L 136 Potassium Level 4.6 5.2 H Chloride Level 96 L 94 L Carbon Dioxide Level 30 29 Anion Gap 8 13 Blood Urea Nitrogen 53 H 54 H Creatinine 1.63 H 1.69 H Est Glomerular Filtrat 45 L 43 L Rate mL/min Glucose Level 88 95 Calcium Level 9.2 9.3 Phosphorus Level 3.5 3.6 Magnesium Level 1.9 2.0 Total Bilirubin 0.6 Direct Bilirubin 0.00 Indirect Bilirubin 0.6 Aspartate Amino Transf (AST/SGOT) 51 H Alanine 73 H Aminotransferase (ALT/SGPT) Alkaline Phosphatase 117 Total Protein 5.7 L Albumin 3.4 Globulin 2.30 Albumin/Globulin Ratio 1.47 Lab Scanned Report REFERENCE LAB Subjective 24 Hr Interval Summary Free Text/Dictation Patient in no acute respiratory distress. Awaiting midline placement given lost IV access. Exam/Review of Systems Exam Vitals Vital Signs Date Temp Pulse Resp B/P (MAP) Pulse Ox O2 O2 Flow FiO2 Time Delivery Rate 11/08/18 99 30 08:39 11/08/18 86 25 Nasal 08:39 Cannula 11/08/18 98.3 99/67 (78) 07:38 11/07/18 3.0 16:05 Intake and Output 11/07/18 11/07/18 11/08/18 1515:00 23:00 07:00 IntakeIntake Total 150 ml 460 ml 450 ml OutputOutput Total 1400 ml 1300 ml 900 ml BalanceBalance -1250 ml -840 ml -450 ml Exam General: no acute distress. on high flow Chest: Nontender Lungs: Diminished breath sounds bilaterally, coarse at bases Heart: S1, S2, regular rate and rhythm, , no murmurs Abdomen: Soft , nontender, protuberant, no rebound or guarding, +BS Extremities: trace bilateral edema of the lower extremities Skin: Multiple tattoos, abrasions and scabs on LE Results Results 24hrs Laboratory Tests Test 11/07/18 11:05 11/07/18 11:44 11/08/18 07:06 White Blood Count 8.6 9.3 Red Blood Count 5.97 5.99 Hemoglobin 14.4 14.4 Hematocrit 48.3 49.2 Mean Corpuscular Volume 80.9 L 82.1 Mean Corpuscular Hemoglobin 24.1 L 24.0 L Mean Corpuscular 29.8 L 29.3 L Hemoglobin Concent Red Cell Distribution Width 19.0 H 19.4 H Platelet Count 213 217 Mean Platelet Volume 10.8 H 10.0 Immature Granulocytes % 0.600 H 0.900 H Neutrophils % 64.4 68.5 Lymphocytes % 20.1 17.6 Monocytes % 13.0 H 11.1 H Eosinophils % 1.6 1.5 Basophils % 0.3 0.4 Nucleated Red Blood Cells % 0.0 0.0 Immature Granulocytes # 0.050 H 0.080 H Neutrophils # 5.5 6.4 Lymphocytes # 1.7 1.6 Monocytes # 1.1 H 1.0 H Eosinophils # 0.1 0.1 Basophils # 0.0 0.0 Nucleated Red Blood Cells # 0.0 0.0 Sodium Level 134 L 136 Potassium Level 4.6 5.2 H Chloride Level 96 L 94 L Carbon Dioxide Level 30 29 Anion Gap 8 13 Blood Urea Nitrogen 53 H 54 H Creatinine 1.63 H 1.69 H Est Glomerular Filtrat 45 L 43 L Rate mL/min Glucose Level 88 95 Calcium Level 9.2 9.3 Phosphorus Level 3.5 3.6 Magnesium Level 1.9 2.0 Total Bilirubin 0.6 Direct Bilirubin 0.00 Indirect Bilirubin 0.6 Aspartate Amino Transf (AST/SGOT) 51 H Alanine 73 H Aminotransferase (ALT/SGPT) Alkaline Phosphatase 117 Total Protein 5.7 L Albumin 3.4 Globulin 2.30 Albumin/Globulin Ratio 1.47 Lab Scanned Report REFERENCE LAB Medications Medication Current Medications Aspirin (Halfprin) 81 mg DAILY PO Last administered on 11/08/18at 08:24; Admin Dose 81 MG; Start 11/04/18 at 09:00 Spironolactone (Aldactone) 100 mg BID PO Last administered on 11/08/18at 08:24; Admin Dose 100 MG; Start 11/04/18 at 03:00; Status Hold IV Flush (NS 3 ml) 3 ml PER PROTOCOL IV ; Start 11/04/18 at 03:00 Ondansetron HCl (Zofran Inj) 4 mg Q4H PRN IV NAUSEA/VOMITING Last administered on 11/04/18 08:07; Admin Dose 4 MG; Start 11/04/18 at 03:00 Acetaminophen (Tylenol Tab) 650 mg Q6H PRN PO .PAIN 1-3 OR TEMP; Start 11/04/18 at 03:00 Docusate Sodium (Colace) 100 mg Q12H PRN PO .CONSTIPATION; Start 11/04/18 at 03:00 Bisacodyl (Dulcolax) 5 mg DAILY PRN PO .CONSTIPATION; Start 11/04/18 at 03:00 Pantoprazole (Protonix Tab) 40 mg DAILY@06 PO Last administered on 11/08/18 06:37; Admin Dose 40 MG; Start 11/04/18 at 06:00 Furosemide (Lasix) 40 mg BID DIURETICS IV Last administered on 11/08/18 06:38; Admin Dose 40 MG; Start 11/04/18 at 03:00 Levalbuterol (Xopenex Neb) 1.25 mg Q4H RESP THERAPY PRN HHN SHORTNESS OF BREATH Last administered on 11/08/18 08:38; Admin Dose 1.25 MG; Start 11/04/18 at 04:00 Lorazepam (Ativan) 1 mg Q10MIN PRN IV seizures/withdrawal Last administered on 11/06/18 09:09; Admin Dose 1 MG; Start 11/04/18 at 10:00 Dicyclomine HCl (Bentyl) 10 mg QID PRN PO abdominal cramps; Start 11/04/18 at 10:00 Clonidine (Catapres) 0.1 mg Q6H PRN PO SBP >160; Start 11/04/18 at 10:00 Carvedilol (Coreg) 6.25 mg BID PO Last administered on 11/08/18 08:24; Admin Dose 6.25 MG; Start 11/04/18 at 10:00 Lorazepam (Ativan) 0.5 mg Q4H PRN IV anxiety, agitation Last administered on 11/07/18 22:09; Admin Dose 0.5 MG; Start 11/04/18 at 16:00 Mupirocin (Bactroban) 1 applic BID TOP Last administered on 11/07/18 20:12; Admin Dose 1 APPLIC; Start 11/05/18 at 09:00; Stop 11/12/18 at 08:59 Enoxaparin Sodium (Lovenox) 40 mg DAILY SC Last administered on 11/08/18at 08:37; Admin Dose 40 MG; Start 11/05/18 at 10:00 Acetaminophen/ Hydrocodone Bitart ([place] (5/325)) 1 tab Q4H PRN PO .PAIN 4-6; Start 11/05/18 at 15:00 Acetaminophen/ Hydrocodone Bitart ([place] (10/325)) 1 tab Q6H PRN PO PAIN LEVEL 7-10 Last administered on 11/08/18at 08:48; Admin Dose 1 TAB; Start 11/05/18 at 14:00 Morphine Sulfate (morphine) 6 mg Q4H PRN PO SEVERE PAIN LEVEL 7-10; Start 11/08/18 at 11:00 DAMEON MADRIGAL MD Nov 08, 2018 09:26
[2018-11-08] MEDS ORDERED: LORAZEPAM 0.5 MG TAB PO PRN (09:30)
[2018-11-08] MEDS ORDERED: DEXTROSE 50% 50 ML SYRINGE IV PRN (09:30)
--- NOTE | 2018-11-08 10:09 | PN ---
DATE: 11/08/2018 SUBJECTIVE: The patient is stable, no events overnight. OBJECTIVE: VITAL SIGNS: Blood pressure is 99/67, pulse 86, respirations 25, temperature 98.3. HEENT: Head is normocephalic. NECK: Supple. HEART: Regular rate. LUNGS: Show diminished breath sounds at the base. ABDOMEN: Soft, nontender to palpation without rebound or guarding. EXTREMITIES: Negative for clubbing, cyanosis. Positive edema. DERMATOLOGIC: No rashes. MUSCULOSKELETAL: No joint effusion. NEUROLOGIC: No change in exam. MEDICATIONS: Reviewed. LABORATORY DATA: Shows sodium 136, potassium 5.2, chloride 94, BUN 54, creatinine 1.69. White count 9.3, hemoglobin 14.4, platelet count is 217. ASSESSMENT AND PLAN: 1. Nonoliguric acute kidney injury on top of chronic kidney disease with previous baseline creatinin e around 1.5 mg/dL. Etiology of MARIBEL is secondary to hemodynamics, cardiorenal syndrome, possible neph rotoxicity from amphetamine use. The patient's renal function has been fluctuating. Creatinine is s tabilized in between 1.6 and 1.7 mg/dL. At this point, continue current medical management. Contin ue to renally dose meds, avoid nephrotoxins. Would defer AKANKSHA inhibitor or ARB at this time. Monitor closely on current diuretic regimen. 2. Hyperkalemia, likely secondary to acute kidney injury in conjunction with Aldactone. Will hold A ldactone and monitor potassium levels closely. 3. Acute systolic, diastolic heart failure. The patient is clinically improving. Continue current diuretic regimen. Will adjust diuretics as needed. 4. Mineral bone disorder, monitor calcium and phosphorus levels. 5. Acute hypoxemic respiratory failure secondary to congestive heart failure, pneumonia. Continue m edical management. Continue high flow oxygen, antibiotics, diuretic therapy, nebulizers. 6. . Continue medical management. Will monitor closely. 7. History of chronic obstructive pulmonary disease. 8. Polysubstance abuse with recent methamphetamine use. Continue to monitor. Dictated By: NHAN ESPINOZA/NTS Conf#: [id number] DID#: [id number] CC: LULY MCDONALD MD; MALGORZATA NELSON MD;*End*
[2018-11-08] MEDS ORDERED: NA POLYST SULFON 15 GM/60 ML BTL PO ONE (11:30)
[2018-11-08] MEDS: MUPIROCIN 2% 22 GM OINT TOP SCH (11:51)
[2018-11-08] MEDS: morphine LIQ (10 MG/5 ML) CUP PO PRN ×2 (11:56→18:54)
--- NOTE | 2018-11-08 14:53 | CONS ---
Assessment/Plan Cardiology NYHA: II Heart Failure Type: Acute on Chronic Heart Failure Type: Systolic Assessment/Plan Hospital Course (Demo Recall) Acute decompensated systolic congestive heart failure Cardiomyopathy with left ventricular ejection fraction 50-20% Respiratory failure, on high flow oxygen Recent methamphetamine use Possible sepsis MARIBEL -As per friend at bedside, patient with recent methamphetamine use. -Patient without IV access currently and awaiting midline. In the interim, would order 1 dose of p.o. Bumex -Given potassium on the higher side, would hold Aldactone -Continue beta-karen as tolerated -Of importance is cessation of illicit drug use Consultation Date/Type/Reason Admit Date/Time Nov 04, 2018 at 01:51 Initial Consult Date 11/05/18 Type of Consult Cardiology Date/Time of Note DATE: 11/08/18 TIME: 14:51 24 HR Interval Summary Free Text/Dictation Shortness of breath is better. Denies chest pain, palpitations Exam/Review of Systems Vital Signs Vitals Vital Signs Date Temp Pulse Resp B/P (MAP) Pulse Ox O2 O2 Flow FiO2 Time Delivery Rate 11/08/18 92 30 12:30 11/08/18 74 12:15 11/08/18 97.8 20 113/87 Nasal 12:00 (96) Cannula 11/07/18 3.0 16:05 Intake and Output 11/07/18 11/07/18 11/08/18 1515:00 23:00 07:00 IntakeIntake Total 150 ml 460 ml 450 ml OutputOutput Total 1400 ml 1300 ml 900 ml BalanceBalance -1250 ml -840 ml -450 ml Exam Exam Sleeping but arousable, no apparent distress Head: normocephalic Respiratory: other (Coarse breath sounds bilaterally, decreased at the bases) Cardiovascular: regular rate and rhythm (S1-S2 heard) Gastrointestinal: soft, non-tender, bowel sounds Extremities: edema Labs Result Diagram: 11/08/18 0706 11/08/18 0706 Results 24hrs Laboratory Tests Test 11/08/18 07:06 White Blood Count 9.3 Red Blood Count 5.99 Hemoglobin 14.4 Hematocrit 49.2 Mean Corpuscular Volume 82.1 Mean Corpuscular Hemoglobin 24.0 L Mean Corpuscular Hemoglobin Concent 29.3 L Red Cell Distribution Width 19.4 H Platelet Count 217 Mean Platelet Volume 10.0 Immature Granulocytes % 0.900 H Neutrophils % 68.5 Lymphocytes % 17.6 Monocytes % 11.1 H Eosinophils % 1.5 Basophils % 0.4 Nucleated Red Blood Cells % 0.0 Immature Granulocytes # 0.080 H Neutrophils # 6.4 Lymphocytes # 1.6 Monocytes # 1.0 H Eosinophils # 0.1 Basophils # 0.0 Nucleated Red Blood Cells # 0.0 Sodium Level 136 Potassium Level 5.2 H Chloride Level 94 L Carbon Dioxide Level 29 Anion Gap 13 Blood Urea Nitrogen 54 H Creatinine 1.69 H Est Glomerular Filtrat Rate mL/min 43 L Glucose Level 95 Calcium Level 9.3 Phosphorus Level 3.6 Magnesium Level 2.0 Medications Medications Current Medications Aspirin (Halfprin) 81 mg DAILY PO Last administered on 11/08/18 08:24; Admin Dose 81 MG; Start 11/04/18 at 09:00 Spironolactone (Aldactone) 100 mg BID PO Last administered on 11/08/18 08:24; Admin Dose 100 MG; Start 11/04/18 at 03:00; Status Hold IV Flush (NS 3 ml) 3 ml PER PROTOCOL IV ; Start 11/04/18 at 03:00 Ondansetron HCl (Zofran Inj) 4 mg Q4H PRN IV NAUSEA/VOMITING Last administered on 11/04/18 08:07; Admin Dose 4 MG; Start 11/04/18 at 03:00 Acetaminophen (Tylenol Tab) 650 mg Q6H PRN PO .PAIN 1-3 OR TEMP; Start 11/04/18 at 03:00 Docusate Sodium (Colace) 100 mg Q12H PRN PO .CONSTIPATION; Start 11/04/18 at 03:00 Bisacodyl (Dulcolax) 5 mg DAILY PRN PO .CONSTIPATION; Start 11/04/18 at 03:00 Pantoprazole (Protonix Tab) 40 mg DAILY@06 PO Last administered on 11/08/18 06:37; Admin Dose 40 MG; Start 11/04/18 at 06:00 Furosemide (Lasix) 40 mg BID DIURETICS IV Last administered on 11/08/18 06:38; Admin Dose 40 MG; Start 11/04/18 at 03:00 Levalbuterol (Xopenex Neb) 1.25 mg Q4H RESP THERAPY PRN HHN SHORTNESS OF BREATH Last administered on 11/08/18 08:38; Admin Dose 1.25 MG; Start 11/04/18 at 04:00 Lorazepam (Ativan) 1 mg Q10MIN PRN IV seizures/withdrawal Last administered on 11/06/18 09:09; Admin Dose 1 MG; Start 11/04/18 at 10:00 Dicyclomine HCl (Bentyl) 10 mg QID PRN PO abdominal cramps; Start 11/04/18 at 10:00 Clonidine (Catapres) 0.1 mg Q6H PRN PO SBP >160; Start 11/04/18 at 10:00 Carvedilol (Coreg) 6.25 mg BID PO Last administered on 11/08/18 08:24; Admin Dose 6.25 MG; Start 11/04/18 at 10:00 Mupirocin (Bactroban) 1 applic BID TOP Last administered on 11/08/18 11:51; Admin Dose 1 APPLIC; Start 11/05/18 at 09:00; Stop 11/12/18 at 08:59 Enoxaparin Sodium (Lovenox) 40 mg DAILY SC Last administered on 11/08/18 08:37; Admin Dose 40 MG; Start 11/05/18 at 10:00 Acetaminophen/ Hydrocodone Bitart ([place] (5/325)) 1 tab Q4H PRN PO .PAIN 4-6; Start 11/05/18 at 15:00 Acetaminophen/ Hydrocodone Bitart ([place] (10/325)) 1 tab Q6H PRN PO PAIN LEVEL 7-10 Last administered on 11/08/18 08:48; Admin Dose 1 TAB; Start 11/05/18 at 14:00 Morphine Sulfate (morphine) 6 mg Q4H PRN PO SEVERE PAIN LEVEL 7-10 Last administered on 11/08/18 11:56; Admin Dose 6 MG; Start 11/08/18 at 11:00 Lorazepam (Ativan) 0.5 mg Q6H PRN PO ANXIETY; Start 11/08/18 at 09:30 Reginald Muñoz DO Nov 08, 2018 14:53
[2018-11-08] MEDS ORDERED: BUMETANIDE 1 MG TAB PO ONE (15:00)
--- NOTE | 2018-11-08 15:56 | CONS ---
Consult Date/Type/Reason Admit Date/Time Nov 04, 2018 at 01:51 Initial Consult Date 11/05/18 Type of Consultation: Pulm Date/Time of Note DATE: 11/08/18 TIME: 15:55 Subjective No events. Remains on high-flow FiO2. IV access an issue; awaiting mid-line placement. Objective Vitals Vital Signs Date Temp Pulse Resp B/P (MAP) Pulse Ox O2 O2 Flow FiO2 Time Delivery Rate 11/08/18 97.7 68 20 106/73 95 Nasal 15:10 (84) Cannula 11/08/18 30 12:30 11/07/18 3.0 16:05 Intake and Output 11/07/18 11/07/18 11/08/18 1515:00 23:00 07:00 IntakeIntake Total 150 ml 460 ml 450 ml OutputOutput Total 1400 ml 1300 ml 900 ml BalanceBalance -1250 ml -840 ml -450 ml Exam HEENT: Neck supple; no JVD; no LAD CVS: RRR, S1 and S2, 3/6 systolic murmur CHEST: Reduced right basilar breath sounds ABD: Soft, NT, + BS EXT: No c/c; + edema Results/Medications Result Diagram: 11/08/18 0706 11/08/18 0706 Results 24 hrs Laboratory Tests Test 11/08/18 07:06 White Blood Count 9.3 Red Blood Count 5.99 Hemoglobin 14.4 Hematocrit 49.2 Mean Corpuscular Volume 82.1 Mean Corpuscular Hemoglobin 24.0 L Mean Corpuscular Hemoglobin Concent 29.3 L Red Cell Distribution Width 19.4 H Platelet Count 217 Mean Platelet Volume 10.0 Immature Granulocytes % 0.900 H Neutrophils % 68.5 Lymphocytes % 17.6 Monocytes % 11.1 H Eosinophils % 1.5 Basophils % 0.4 Nucleated Red Blood Cells % 0.0 Immature Granulocytes # 0.080 H Neutrophils # 6.4 Lymphocytes # 1.6 Monocytes # 1.0 H Eosinophils # 0.1 Basophils # 0.0 Nucleated Red Blood Cells # 0.0 Sodium Level 136 Potassium Level 5.2 H Chloride Level 94 L Carbon Dioxide Level 29 Anion Gap 13 Blood Urea Nitrogen 54 H Creatinine 1.69 H Est Glomerular Filtrat Rate mL/min 43 L Glucose Level 95 Calcium Level 9.3 Phosphorus Level 3.6 Magnesium Level 2.0 Home Meds Active Scripts Carvedilol* (Carvedilol*) 6.25 Mg Tablet, 6.25 MG PO BID, #60 TAB Prov:JOSE BRADY MD 10/06/18 Furosemide* (Lasix*) 40 Mg Tablet, 40 MG PO BID, #60 TAB 1 Refill Take with Aldactone at the same time, try to take evening dose of both Lasix and Aldactone before 6 PM as to not effect your sleep Prov:JOSE BRADY MD 10/06/18 Spironolactone* (Aldactone*) 50 Mg Tablet, 100 MG PO BID, #60 TAB 1 Refill Prov:JOSE BRADY MD 10/06/18 Enalapril Maleate* (Enalapril Maleate*) 2.5 Mg Tablet, 2.5 MG PO DAILY, #60 TAB 0 Refills Prov:JOSE BRADY MD 10/06/18 Albuterol Sulfate* (Proair HFA*) 8.5 Gm Hfa.aer.ad, 2 PUFF INH Q6 for SOB, #1 INHALER Prov:JOSE BRADY MD 10/06/18 Reported Medications Aspirin Ec (Aspir 81) 81 Mg Tablet.dr, 81 MG PO DAILY, #30 TAB 11/03/18 Discontinued Scripts Levofloxacin* (Levofloxacin*) 750 Mg Tablet, 750 MG PO DAILY for 4 Days, #4 TAB Prov:JOSE BRADY MD 10/06/18 Medications Current Medications Aspirin (Halfprin) 81 mg DAILY PO Last administered on 11/08/18at 08:24; Admin Dose 81 MG; Start 11/04/18 at 09:00 IV Flush (NS 3 ml) 3 ml PER PROTOCOL IV ; Start 11/04/18 at 03:00 Ondansetron HCl (Zofran Inj) 4 mg Q4H PRN IV NAUSEA/VOMITING Last administered on 11/04/18at 08:07; Admin Dose 4 MG; Start 11/04/18 at 03:00 Acetaminophen (Tylenol Tab) 650 mg Q6H PRN PO .PAIN 1-3 OR TEMP; Start 11/04/18 at 03:00 Docusate Sodium (Colace) 100 mg Q12H PRN PO .CONSTIPATION; Start 11/04/18 at 03:00 Bisacodyl (Dulcolax) 5 mg DAILY PRN PO .CONSTIPATION; Start 11/04/18 at 03:00 Pantoprazole (Protonix Tab) 40 mg DAILY@06 PO Last administered on 11/08/18 06:37; Admin Dose 40 MG; Start 11/04/18 at 06:00 Furosemide (Lasix) 40 mg BID DIURETICS IV Last administered on 11/08/18 06:38; Admin Dose 40 MG; Start 11/04/18 at 03:00 Levalbuterol (Xopenex Neb) 1.25 mg Q4H RESP THERAPY PRN HHN SHORTNESS OF BREATH Last administered on 11/08/18 08:38; Admin Dose 1.25 MG; Start 11/04/18 at 04:00 Lorazepam (Ativan) 1 mg Q10MIN PRN IV seizures/withdrawal Last administered on 11/06/18 09:09; Admin Dose 1 MG; Start 11/04/18 at 10:00 Dicyclomine HCl (Bentyl) 10 mg QID PRN PO abdominal cramps; Start 11/04/18 at 10:00 Clonidine (Catapres) 0.1 mg Q6H PRN PO SBP >160; Start 11/04/18 at 10:00 Carvedilol (Coreg) 6.25 mg BID PO Last administered on 11/08/18 08:24; Admin Dose 6.25 MG; Start 11/04/18 at 10:00 Mupirocin (Bactroban) 1 applic BID TOP Last administered on 11/08/18 11:51; Admin Dose 1 APPLIC; Start 11/05/18 at 09:00; Stop 11/12/18 at 08:59 Enoxaparin Sodium (Lovenox) 40 mg DAILY SC Last administered on 11/08/18 08:37; Admin Dose 40 MG; Start 11/05/18 at 10:00 Acetaminophen/ Hydrocodone Bitart ([place] (5/325)) 1 tab Q4H PRN PO .PAIN 4-6; Start 11/05/18 at 15:00 Acetaminophen/ Hydrocodone Bitart ([place] (10/325)) 1 tab Q6H PRN PO PAIN LEVEL 7-10 Last administered on 11/08/18 08:48; Admin Dose 1 TAB; Start 11/05/18 at 14:00 Morphine Sulfate (morphine) 6 mg Q4H PRN PO SEVERE PAIN LEVEL 7-10 Last administered on 11/08/18at 11:56; Admin Dose 6 MG; Start 11/08/18 at 11:00 Lorazepam (Ativan) 0.5 mg Q6H PRN PO ANXIETY; Start 11/08/18 at 09:30 Assessment/Plan Assessment/Plan (Daily) IMP: 1. ADHF 2. Hypoxemic Resp Insufficiency 2/2 #1 3. Cardiomyopathy 4. Substance abuse 5. MARIBEL RECS: 1. De-escalate off abx 2. Follow I/O's, daily weights and renal fxn 3. Diuresis as per Cards CHARISSA MCCRACKEN MD Nov 08, 2018 15:56
[2018-11-09 00:31] VITALS: BP 142/71; PULSE 70; RESP 15
--- NOTE | 2018-11-09 09:15 | DS ---
Date/Time of Note Date/Time of Note DATE: 11/09/18 TIME: 09:07 Discharge Summary Admission/Discharge Info Admit Date/Time Nov 04, 2018 at 01:51 Discharge Date/Time Nov 08, 2018 at 21:02 Discharge Diagnosis 1. Acute shortness of breath, multifactorial- stable 2. MARIBEL- improving 3. Acute on chronic systolic and diastolic heart failure 4. Sepsis secondary to PNA- resolved 5. Liver cirrhosis secondary to Hep C 6. COPD 7. Illicit drug use Patient Condition: Stable Consults Cardiology- Dr. Muñoz Nephrology- Dr. Garcia Pulmonology- Dr. Atkins Procedures PROCEDURE: XR Chest. CLINICAL INDICATION: Shortness of breath, congestion TECHNIQUE: Single frontal radiograph of the chest. COMPARISON: CR CHEST 04/05/2016; CR CHEST 06/05/2014 FINDINGS: Mildly increased interstitial edema suggesting cardiopulmonary congestion. Small bilateral pleural effusions are increased. No pneumothorax. Cardiomegaly unchanged. IMPRESSION: Mildly increased interstitial edema suggesting cardiopulmonary congestion. Small bilateral pleural effusions are increased. RPTAT: [facility]ADD .Steve Joshi MD, MD Date Time Electronically viewed and signed by .Steve Joshi MD, MD on 11/06/2018 08:57 PROCEDURE: US Abdomen (limited). CLINICAL INDICATION: Abdominal pain and distension. TECHNIQUE: Multiple real-time longitudinal and transverse images of the four quadrants of the abdomen were acquired utilizing a curved array transducer. Images were reviewed on a high-resolution PACS workstation. COMPARISON: Abdomen ultrasound dated 10/03/2018. FINDINGS: There is a small amount of free fluid in the abdomen. Paracentesis was not performed. IMPRESSION: 1. Small amount free fluid in the abdomen. 2. Paracentesis was not performed. RPTAT: QQ .Sang Hernandez MD, Date Time Electronically viewed and signed by .Sang Hernandez MD, MD on 11/04/2018 12:57 PROCEDURE: XR Chest. CLINICAL INDICATION: pain TECHNIQUE: Single portable view of the chest was obtained COMPARISON: Yesterday FINDINGS: The heart, lungs and mediastinum are unchanged. There is moderate cardiomegaly. There is a right lower lobe infiltrate and right pleural effusion.. RPTAT: AA IMPRESSION: No significant change. Moderate cardiomegaly. Right lower lobe infiltrate and right pleural effusion. .Tony Mora MD, MD Date Time Electronically viewed and signed by .Tony Mora MD, on 11/04/2018 08:19 PROCEDURE: Scrotal ultrasound CLINICAL INDICATION: Swelling. TECHNIQUE: Scrotal ultrasound was performed with sagittal and transverse views. Posey scale and color imaging was performed. Images were reviewed on high resolution PACS monitors. COMPARISON: Previous scrotal ultrasound from 10/02/2018. FINDINGS: The right testicle measures 3.6 x 2.8 x 2.1 cm. The left testicle measures 3.0 x 2.2 x 2.1 cm. There is normal size and echogenicity and morphology bilaterally. There is normal blood flow seen bilaterally. Both epididymi appears slightly heterogeneous and hyperemic. No hydrocele is identified. Left-sided varicocele present. Moderate scrotal thickening present. No mass or cyst or other abnormality is seen. IMPRESSION: 1. Findings suggesting bilateral epididymitis with moderate scrotal thickening which may reflect edema and/or cellulitis. Correlate with clinical exam. 2. Left-sided varicocele. 3. Symmetrically normal-appearing testis. RPTAT: [facility] Physician Jocelyn Date Time Electronically viewed and signed by Physician Jocelyn on 11/04/2018 12:40 PROCEDURE: XR Chest, 1 View CLINICAL INDICATION: Sepsis. TECHNIQUE: Frontal view of the chest. COMPARISON: None FINDINGS: LUNGS: Increased pulmonary vascularity bilateral nonspecific interstitial disease. No consolidative infiltrates. PLEURAL SPACE: Small right pleural effusion. No pneumothorax. HEART: Enlarged cardiac silhouette consistent with cardiomegaly and / or pericardial effusion. MEDIASTINUM: Unremarkable. BONES/JOINTS: Unremarkable. IMPRESSION: 1. Enlarged cardiac silhouette consistent with cardiomegaly and / or pericardial effusion. 2. Increased pulmonary vascularity and increased interstitial markings noted. Bilateral air space infiltrates. The findings are consistent with pulmonary edema/CHF. 3. Small right pleural effusion. RPTAT: [facility] Thiago Lazaro, Physician Traffic Law Attorney Date Time Electronically viewed and signed by Thiago Lazaro, Physician Traffic Law Attorney on 11/03/2018 23:01 Hx of Present Illness cc: sob, cp, gokul This is a 48 year old male with Pmhx of mixed systolic/diastolic chf, cirrhosis and illicit drug use who presented to the [facility] ER with chest pain and shortness of breath. Patient also reports worsening lower extremity edema and scrotal edema. He states it has gotten worse over the past few days. He has not been taking his medications regularly. Reports recent meth use. He also reports increased abdominal swelling. allergies: nkda Hospital Course Patient was admitted for workup of acute shortness of breath. He was found to be in acute systolic heart failure and started on diurectics. Cardiology consultation was placed for further recommendations. Patient was experiencing worsening shortness of breath and diaphoresis given he was withdrawing from meth use. He was moved to ICU for close monitoring and placed intermittently on BIPAP and high flow to maintain O2 saturations. Patients respiratory status stabilized and was moved to Telemetry floor. Patient however developed acute renal failure and Nephrology consultation was placed. Patients respiratory status improved but still required high flow and continued hospitalization. Patient decided to leave AGAINST MEDICAL ADVICE. Home Meds Active Scripts Carvedilol* (Carvedilol*) 6.25 Mg Tablet, 6.25 MG PO BID, #60 TAB Prov:JOSE BRADY MD 10/06/18 Furosemide* (Lasix*) 40 Mg Tablet, 40 MG PO BID, #60 TAB 1 Refill Take with Aldactone at the same time, try to take evening dose of both Lasix and Aldactone before 6 PM as to not effect your sleep Prov:JOSE BRADY MD 10/06/18 Spironolactone* (Aldactone*) 50 Mg Tablet, 100 MG PO BID, #60 TAB 1 Refill Prov:JOSE BRADY MD 10/06/18 Enalapril Maleate* (Enalapril Maleate*) 2.5 Mg Tablet, 2.5 MG PO DAILY, #60 TAB 0 Refills Prov:JOSE BRADY MD 10/06/18 Albuterol Sulfate* (Proair HFA*) 8.5 Gm Hfa.aer.ad, 2 PUFF INH Q6 for SOB, #1 INHALER Prov:JOSE BRADY MD 10/06/18 Reported Medications Aspirin Ec (Aspir 81) 81 Mg Tablet.dr, 81 MG PO DAILY, #30 TAB 11/03/18 Discontinued Scripts Levofloxacin* (Levofloxacin*) 750 Mg Tablet, 750 MG PO DAILY for 4 Days, #4 TAB Prov:JOSE BRADY MD 10/06/18 Primary Care Provider Care Physician No Primary Time spent on discharge: > 30 minutes DAMEON MADRIGAL MD Nov 09, 2018 09:15
== END 2018-11-08 21:02 | disposition left against medical advice (07) | DRG 871 ==
LOC: E/R 21:37 → 6WM 11-04 01:51 → ICU 11-04 13:57 → TEL 11-06 19:04
PROVIDERS: ADMIT Family Medicine; ATTEND Family Medicine
PROC: 5A09457 Assistance with Respiratory Ventilation, 24-96 Consecutive Hours, Continuous Positive Airway Pressure (ICD-10-PCS; principal; 2018-11-05)
DX: A41.9 Sepsis, unspecified organism (principal); J18.9 Pneumonia, unspecified organism; J96.01 Acute respiratory failure with hypoxia; I50.43 Acute on chronic combined systolic (congestive) and diastolic (congestive) heart failure; N17.9 Acute kidney failure, unspecified; R18.8 Other ascites; I13.0 Hypertensive heart and chronic kidney disease with heart failure and stage 1 through stage 4 chronic kidney disease, or unspecified chronic kidney disease; I42.9 Cardiomyopathy, unspecified; K74.60 Unspecified cirrhosis of liver; B19.20 Unspecified viral hepatitis C without hepatic coma; N18.9 Chronic kidney disease, unspecified; J44.9 Chronic obstructive pulmonary disease, unspecified; N50.89 Other specified disorders of the male genital organs; E87.5 Hyperkalemia
CPT/HCPCS: 36600; 71045; 76705; 76870; 80048; 80053; 80202; 80307; 81001; 81003; 82043; 82550; 82553; 82803; 82962; 83605; 83615; 83735; 83880; 84100; 84155; 84300; 84484; 85025; 85610; 85730; 87040; 87081; 87086; 87400; 87522; 93005; 93306; 94640; 94660; 94664; 96374; 96375; 96376; J0610; J0692; J0696; J1650; J1815; J1940; J2060; J2270; J2405; J3370; J7030; J7050; P9047

== ENCOUNTER 2018-11-16 17:34 | Inpatient (IN) | payer OTHER ==
[~2018-11-16] VITALS: Ht 180.3 cm; Wt 102.4 kg
[~2018-11-16 17:34] MED LIST changes: +ASPI-535 PO; -LEVO750T8 PO
[2018-11-16 22:00] VITALS: Ht 180.3 cm; Wt 102.4 kg
[2018-11-16 22:12] VITALS: PULSE 90
[2018-11-16] MEDS ORDERED: LORAZEPAM 2 MG INJ IV PRN (23:00)
[2018-11-16] MEDS ORDERED: ACETAMINOPHEN 325 MG TAB PO PRN (23:00)
[2018-11-16] MEDS ORDERED: NACL 0.9% 3 ML SYG IV SCH (23:00)
[2018-11-16] MEDS ORDERED: ONDANSETRON 4 MG INJ IV PRN (23:00)
--- NOTE | 2018-11-16 23:02 | HP ---
Date/Time of Note Date/Time of Note DATE: 11/16/18 TIME: 23:01 Assessment/Plan VTE Prophylaxis SCD applied (from Nsg): Yes Pharmacological prophylaxis: NA/contraindicated Pharm contraindication: low risk/ambulating Assessment/Plan Hospital Course This is a 48-year-old male being admitted to the telemetry floor for: 1. Acute on chronic systolic/diastolic chf exacerbation: Echo from 11/04/2018 Ejection fraction is visually estimated at 15-20 % Along with grade 3-4 diastolic dysfunction. Lasix 40 mg IV twice daily. Continue spironolactone. Continue AKANKSHA inhibitor. Continue beta-karen. Will consult cardiology 2. Community acquired pneumonia: Ceftriaxone IV, doxycycline IV 3 cirrhosis: Continue spironolactone, Lasix. Follow outpatient was for hepatitis C testing. 4. COPD: PRN breathing treatments as indicated, 5. Hepatitis C: check urine drug screen, hcv viral load testing as outpatient. 6. Illicit drug use: We will check urine drug screen, nicotine patch. Ativan for withdrawal symptoms, social work consult. 7. Non-compliance: Patient is noncompliant with his medications as well as continues to use IV drugs. We do encourage compliance. 8. DVT and GI prophylaxis: SCDs, no GI prophylaxis indicated Further treatment strategy will be implemented as per the clinical course. HPI/ROS Admit Date/Time Admit Date/Time Nov 16, 2018 at 21:33 Hx of Present Illness Chief complaint: Shortness of breath This is a 48-year-old suspected homeless male with a past medical history of COPD and CHF secondary to methamphetamine use who originally presented to [facility] with respiratory distress. Patient was noted to be 76% on 15 L nonrebreather mask. Patient was placed on BiPAP. Patient was given steroids along with nitroglycerin drip as well as Lasix for diuresis. Chest x- ray at the transfer facility also showed possible signs of pneumonia and patient was started on ceftriaxone and doxycycline. Patient was diuresed at [facility]. Patient was seen and examined by the documentation nurse and recommendation there was to continue Lasix, continue Coreg and patient was to be started on Entresto once patient's creatinine stabilized. Patient also was given IV steroids as well as breathing treatments. Of note patient left AMA, during previous admission Pertinent laboratory findings for OSH, please see chart for further details: BNP 2694 troponin less than 0.03 white blood cells 14.2 Allergies: NKDA Medications: See OCT ROS Const: As per HPI Eyes : No pain discharge or redness or change in visual acuity ENT: No pain, sore throat, congestion, congestion, dysphagia or discharge Respiratory: As per HPI Cardiovascular: As per HPI GI : no change in appetite, abdominal pain, nausea, vomiting, diarrhea, constipation, or change in the color his stool Genitourinary: No dysuria, hematuria, flank pain , discharge or CVA tenderness Musculoskeletal: No joint pain, back pain, neck pain, restricted range of motion in neck or joints Skin: No rash, bruising or hives Neuro: No headache, dizziness, syncope, seizure, focal weakness Endocrine: No polyuria, polydipsia, temperature intolerance Psych: No hallucination, depression, anxiety or suicidal ideation PMH/Family/Social Past Medical History COPD, history of hepatitis C/cirrhosis, systolic/diastolic chf, HLD Medications Current Medications IV Flush (NS 3 ml) 3 ml PER PROTOCOL IV ; Start 11/16/18 at 23:00; Status UNV Ondansetron HCl (Zofran Inj) 4 mg Q6H PRN IV NAUSEA/VOMITING; Start 11/16/18 at 23:00; Status UNV Acetaminophen (Tylenol Tab) 650 mg Q6H PRN PO .PAIN 1-3 OR TEMP; Start 11/16/18 at 23:00; Status UNV Enoxaparin Sodium (Lovenox) 30 mg DAILY SC ; Start 11/17/18 at 09:00; Status UNV Lorazepam (Ativan) 1 mg Q6H PRN IV CONTROL WITHDRAWAL SYMPTOMS; Start 11/16/18 at 23:00; Status UNV Coded Allergies: No Known Drug Allergies (Verified Allergy, Unknown, 11/16/18) Past Surgical History right wrist sx, appendectomy Family History Significant Family History: no pertinent family hx Social History Smoking Status: Current every day smoker (IV drug use) Drug Use: other Exam/Review of Systems Exam Exam General: Patient is currently standing by the sink urinating. HEENT: Atraumatic, normocephalic. The pupils are equal, round and reactive. Extraocular motor are intact Neck: Supple with full range of motion. No rigidity or meningismus Chest: Nontender Lungs: Coarse breath sounds bilaterally, expiratory wheezing and rales at the bases Heart: Normal S1-S2, Regular rhythm and rate. Positive JVD Abdomen: Soft , nontender, nondistended , bowel sounds are present. No guarding no rebound tenderness , No masses or organomegaly. No costovertebral temporal angle mass Extremities: 1+ pitting edema of the bilateral lower extremities Neurologic: Normal mental status, speech normal, cranial nerves II through XII a re intact, motor and sensory are intact, no focal weakness LULY MCDONALD Nov 16, 2018 23:02
[2018-11-16] MEDS ORDERED: LORAZEPAM 2 MG INJ IV ONE (23:30)
[2018-11-17] VITALS (12 sets, daily range): BP systolic 111–135; BP diastolic 62–92; PULSE 88–102; RESP 18–22
[2018-11-17] MEDS: LORAZEPAM 2 MG INJ IV PRN ×2 (00:55→18:57)
[2018-11-17] MEDS: CEFTRIAXONE 1 GM/50 ML (PMX) 50 ML IVPB SCH (04:30)
[2018-11-17] MEDS: FUROSEMIDE 40 MG INJ IV SCH ×2 (06:56→17:29)
[2018-11-17] MEDS: ALBUTEROL HFA 8 GM INHALER INH SCH ×4 (08:00→20:18)
[2018-11-17] MEDS: SPIRONOLACTONE 50 MG TAB PO SCH ×2 (08:36→20:15)
[2018-11-17] MEDS: ENALAPRIL 2.5 MG TAB PO SCH (08:36)
[2018-11-17] MEDS: ASPIRIN (EC) 81 MG TAB PO SCH (08:36)
[2018-11-17] MEDS: DOXYCYCLINE 100 MG in SOD CHLORIDE 0.9% 250 ML IVPB SCH ×2 (08:46→20:18)
[2018-11-17] MEDS: ENOXAPARIN 30 MG/0.3 ML SYG SC SCH (08:51)
--- NOTE | 2018-11-17 08:59 | PN ---
Date/Time of Note Date/Time of Note DATE: 11/17/18 TIME: 08:59 Assessment/Plan VTE Prophylaxis SCD applied (from Nsg): Yes Pharmacological prophylaxis: LMWH Lines/Catheters IV Catheter Type (from Nrsg): [place] Assessment/Plan Assessment/Plan 1. 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 Continue on Lasix BID and spironolactone - EF from last admission noted to be 15-20% - BNP noted - CXR seen with mild pulmonary congestion - monitor I/O and daily weights 2. Scrotal swelling - etiology CHF and epididymitis - US testicles from last visit showed bilateral epididymitis - having difficulty urinating as well - Urology consultation placed for further recommendations - IV antibitoics on board 3. Liver cirrhosis secondary to hep C - continue current diuretics 4. COPD - nebs PRN - not in exacerbation 5. Illicit drug use - Ativan for withdrawal symptoms, social work consult. 6. Disposition - Continue current management and monitor for improvement in scrotal swelling and respiratory status Result Diagram: 11/17/18 0646 11/17/18 0646 Results 24hrs Laboratory Tests Test 11/16/18 23:31 11/17/18 06:46 White Blood Count 17.4 #H 16.6 H Red Blood Count 5.69 5.90 Hemoglobin 13.7 L 14.2 Hematocrit 45.8 47.8 Mean Corpuscular Volume 80.5 L 81.0 L Mean Corpuscular Hemoglobin 24.1 L 24.1 L Mean Corpuscular Hemoglobin Concent 29.9 L 29.7 L Red Cell Distribution Width 19.7 H 20.1 H Platelet Count 275 # 309 Mean Platelet Volume 9.8 9.8 Immature Granulocytes % 1.000 H 0.900 H Neutrophils % 89.9 H 88.6 H Lymphocytes % 3.3 L 5.1 L Monocytes % 5.3 4.8 Eosinophils % 0.3 0.4 Basophils % 0.2 0.2 Nucleated Red Blood Cells % 0.0 0.0 Immature Granulocytes # 0.180 H 0.150 H Neutrophils # 15.6 H 14.7 H Lymphocytes # 0.6 L 0.9 Monocytes # 0.9 0.8 Eosinophils # 0.1 0.1 Basophils # 0.0 0.0 Nucleated Red Blood Cells # 0.0 0.0 Sodium Level 134 L 136 Potassium Level 4.1 3.7 Chloride Level 90 L 93 L Carbon Dioxide Level 34 H 33 H Anion Gap 10 10 Blood Urea Nitrogen 46 H 45 H Creatinine 1.25 H 1.07 Est Glomerular Filtrat Rate mL/min > 60 > 60 Glucose Level 125 143 Calcium Level 9.0 8.9 Magnesium Level 1.7 1.8 Total Bilirubin 0.5 0.5 Direct Bilirubin 0.00 0.00 Indirect Bilirubin 0.5 0.5 Aspartate Amino Transf (AST/SGOT) 29 30 Alanine Aminotransferase (ALT/SGPT) 39 37 Alkaline Phosphatase 135 H 154 H B-Type Natriuretic Peptide 30390 H Total Protein 6.2 6.0 L Albumin 3.5 3.2 L Globulin 2.70 2.80 Albumin/Globulin Ratio 1.29 1.14 Erythrocyte Sedimentation Rate 1 Hemoglobin A1c 6.9 H C-Reactive Protein 3.1 H Thyroid Stimulating Hormone (TSH) 1.630 Subjective 24 Hr Interval Summary Free Text/Dictation Patient states he still has shortness of breath and pain in scrotal area given swelling. states he was going well on Lasix drip at [place] and weaning off pain medications since swelling was decreasing. Exam/Review of Systems Exam Vitals Vital Signs Date Temp Pulse Resp B/P (MAP) Pulse Ox O2 O2 Flow FiO2 Time Delivery Rate 11/17/18 98.0 91 20 115/77 91 07:30 (90) 11/16/18 3.0 22:00 Exam General: sitting up in bed. mild respiratory distress but able to speak complete sentences Neck: Supple, + JVD Chest: Nontender Lungs: Coarse breath sounds bilaterally, no wheezing appreciated Heart: Normal S1-S2, Regular rhythm and rate. no murmurs Abdomen: Soft , nontender, nondistended , bowel sounds are present. No guarding no rebound tenderness , No masses or organomegaly. No costovertebral temporal angle mass Extremities: 1+ pitting edema of the bilateral lower extremities : swelling of scrotum and penile head Results Results 24hrs Laboratory Tests Test 11/16/18 23:31 11/17/18 06:46 White Blood Count 17.4 #H 16.6 H Red Blood Count 5.69 5.90 Hemoglobin 13.7 L 14.2 Hematocrit 45.8 47.8 Mean Corpuscular Volume 80.5 L 81.0 L Mean Corpuscular Hemoglobin 24.1 L 24.1 L Mean Corpuscular Hemoglobin Concent 29.9 L 29.7 L Red Cell Distribution Width 19.7 H 20.1 H Platelet Count 275 # 309 Mean Platelet Volume 9.8 9.8 Immature Granulocytes % 1.000 H 0.900 H Neutrophils % 89.9 H 88.6 H Lymphocytes % 3.3 L 5.1 L Monocytes % 5.3 4.8 Eosinophils % 0.3 0.4 Basophils % 0.2 0.2 Nucleated Red Blood Cells % 0.0 0.0 Immature Granulocytes # 0.180 H 0.150 H Neutrophils # 15.6 H 14.7 H Lymphocytes # 0.6 L 0.9 Monocytes # 0.9 0.8 Eosinophils # 0.1 0.1 Basophils # 0.0 0.0 Nucleated Red Blood Cells # 0.0 0.0 Sodium Level 134 L 136 Potassium Level 4.1 3.7 Chloride Level 90 L 93 L Carbon Dioxide Level 34 H 33 H Anion Gap 10 10 Blood Urea Nitrogen 46 H 45 H Creatinine 1.25 H 1.07 Est Glomerular Filtrat Rate mL/min > 60 > 60 Glucose Level 125 143 Calcium Level 9.0 8.9 Magnesium Level 1.7 1.8 Total Bilirubin 0.5 0.5 Direct Bilirubin 0.00 0.00 Indirect Bilirubin 0.5 0.5 Aspartate Amino Transf (AST/SGOT) 29 30 Alanine Aminotransferase (ALT/SGPT) 39 37 Alkaline Phosphatase 135 H 154 H B-Type Natriuretic Peptide 65848 H Total Protein 6.2 6.0 L Albumin 3.5 3.2 L Globulin 2.70 2.80 Albumin/Globulin Ratio 1.29 1.14 Erythrocyte Sedimentation Rate 1 Hemoglobin A1c 6.9 H C-Reactive Protein 3.1 H Thyroid Stimulating Hormone (TSH) 1.630 Medications Medication Current Medications IV Flush (NS 3 ml) 3 ml PER PROTOCOL IV ; Start 11/16/18 at 23:00 Ondansetron HCl (Zofran Inj) 4 mg Q6H PRN IV NAUSEA/VOMITING; Start 11/16/18 at 23:00 Acetaminophen (Tylenol Tab) 650 mg Q6H PRN PO .PAIN 1-3 OR TEMP; Start 11/16/18 at 23:00 Enoxaparin Sodium (Lovenox) 30 mg DAILY SC Last administered on 11/17/18at 08:51; Admin Dose 30 MG; Start 11/17/18 at 09:00 Albuterol (Ventolin Hfa) 2 puff Q6H RESP THERAPY INH ; Start 11/17/18 at 00:00 Aspirin (Halfprin) 81 mg DAILY PO Last administered on 11/17/18 08:36; Admin Dose 81 MG; Start 11/17/18 at 09:00 Lorazepam (Ativan) 1 mg Q4H PRN IV CONTROL WITHDRAWAL SYMPTOMS Last administered on 11/17/18at 00:55; Admin Dose 1 MG; Start 11/16/18 at 23:30 Furosemide (Lasix) 40 mg BID DIURETICS IV Last administered on 11/17/18 06:56; Admin Dose 40 MG; Start 11/17/18 at 06:00 Ceftriaxone Sodium 50 ml @ 100 mls/hr Q24H IVPB Last administered on 11/17/18 04:30; Admin Dose 100 MLS/HR; Start 11/17/18 at 04:30 Doxycycline Hyclate 100 mg/ Sodium Chloride 250 ml @ 250 mls/hr Q12 IVPB Last administered on 11/17/18 08:46; Admin Dose 250 MLS/HR; Start 11/17/18 at 09:00 Carvedilol (Coreg) 6.25 mg BID PO Last administered on 11/17/18 08:35; Admin Dose 6.25 MG; Start 11/17/18 at 09:00 Spironolactone (Aldactone) 100 mg BID PO Last administered on 11/17/18 08:36; Admin Dose 100 MG; Start 11/17/18 at 09:00 Enalapril Maleate (Vasotec) 2.5 mg DAILY PO Last administered on 11/17/18 08:36; Admin Dose 2.5 MG; Start 11/17/18 at 09:00 DAMEON MADRIGAL MD Nov 17, 2018 08:59
[2018-11-17] MEDS: morphine 2 MG INJ IV PRN ×2 (11:01→16:01)
[2018-11-17] MEDS: ALBUTEROL 0.083% (NEB) 2.5 MG/3 ML AMP HHN PRN ×2 (13:13→19:44)
[2018-11-17] MEDS ORDERED: MAGNESIUM SULFATE 2 GM/50 ML 50 ML IVPB ONE (17:30)
[2018-11-17] MEDS ORDERED: POTASSIUM CHLORIDE (SR) 10 MEQ TAB PO ONE (17:30)
--- NOTE | 2018-11-17 17:34 | CONS ---
Assessment/Plan Cardiology NYHA: III Heart Failure Type: Acute on Chronic Heart Failure Type: Systolic Assessment/Plan Hospital Course (Demo Recall) Acute decompensated systolic congestive heart failure Cardiomyopathy with left ventricular ejection fraction 50-20% Recent methamphetamine use MAIRBEL -Patient presents with decompensated congestive heart failure likely secondary to poor compliance and illicit drug use. Does have a known history of methamphetamine use with recent admission in the past 2 weeks. He did leave AGAINST MEDICAL ADVICE the last admission -Continue beta-blockers heart rate and blood pressure permits, AKANKSHA inhibitor as renal function blood pressure permits, diuretics and titrate as needed, maintain potassium above 4.0 and magnesium above 2.0 -Once again counseled patient on importance of cessation of illicit drug use, compliance with medications as well as CHF diet Consultation Date/Type/Reason Admit Date/Time Nov 16, 2018 at 21:33 Type of Consult Cardiology Reason for Consultation Shortness of breath Date/Time of Note DATE: 11/17/18 TIME: 17:31 Hx of Present Illness This is a 48-year-old male with past medical history of severe cardiomyopathy, methamphetamine use, who presents with worsening shortness of breath. Symptoms are worse with exertion and improved with rest. Symptoms are worse with lying down flat. He does have intermittent cough. He does have chest pain with coughing. He denies exertional chest pain. Denies dizziness or lightheadedness. He does feel better since he has been hospitalized and rece ived medical therapy. 12 point review of systems was performed with all pertinent positives and nega tives mentioned above and all else is negative Past Medical History Medical History: congestive heart failure, hypertension Home Meds Active Scripts Carvedilol* (Carvedilol*) 6.25 Mg Tablet, 6.25 MG PO BID, #60 TAB Prov:JOSE BRADY MD 10/06/18 Furosemide* (Lasix*) 40 Mg Tablet, 40 MG PO BID, #60 TAB 1 Refill Take with Aldactone at the same time, try to take evening dose of both Lasix and Aldactone before 6 PM as to not effect your sleep Prov:JOSE BRADY MD 10/06/18 Spironolactone* (Aldactone*) 50 Mg Tablet, 100 MG PO BID, #60 TAB 1 Refill Prov:JOSE BRADY MD 10/06/18 Enalapril Maleate* (Enalapril Maleate*) 2.5 Mg Tablet, 2.5 MG PO DAILY, #60 TAB 0 Refills Prov:JOSE BRADY MD 10/06/18 Albuterol Sulfate* (Proair HFA*) 8.5 Gm Hfa.aer.ad, 2 PUFF INH Q6 for SOB, #1 INHALER Prov:JOSE BRADY MD 10/06/18 Reported Medications Aspirin Ec (Aspir 81) 81 Mg Tablet.dr, 81 MG PO DAILY, #30 TAB 11/03/18 Medications Current Medications IV Flush (NS 3 ml) 3 ml PER PROTOCOL IV ; Start 11/16/18 at 23:00 Ondansetron HCl (Zofran Inj) 4 mg Q6H PRN IV NAUSEA/VOMITING; Start 11/16/18 at 23:00 Acetaminophen (Tylenol Tab) 650 mg Q6H PRN PO .PAIN 1-3 OR TEMP; Start 11/16/18 at 23:00 Enoxaparin Sodium (Lovenox) 30 mg DAILY SC Last administered on 11/17/18 08:51; Admin Dose 30 MG; Start 11/17/18 at 09:00 Albuterol (Ventolin Hfa) 2 puff Q6H RESP THERAPY INH Last administered on 11/17/18 14:40; Admin Dose 2 PUFF; Start 11/17/18 at 00:00 Aspirin (Halfprin) 81 mg DAILY PO Last administered on 11/17/18 08:36; Admin Dose 81 MG; Start 11/17/18 at 09:00 Lorazepam (Ativan) 1 mg Q4H PRN IV CONTROL WITHDRAWAL SYMPTOMS Last administered on 11/17/18at 00:55; Admin Dose 1 MG; Start 11/16/18 at 23:30 Furosemide (Lasix) 40 mg BID DIURETICS IV Last administered on 11/17/18 06:56; Admin Dose 40 MG; Start 11/17/18 at 06:00 Ceftriaxone Sodium 50 ml @ 100 mls/hr Q24H IVPB Last administered on 11/17/18 04:30; Admin Dose 100 MLS/HR; Start 11/17/18 at 04:30 Doxycycline Hyclate 100 mg/ Sodium Chloride 250 ml @ 250 mls/hr Q12 IVPB Last administered on 11/17/18 08:46; Admin Dose 250 MLS/HR; Start 11/17/18 at 09:00 Carvedilol (Coreg) 6.25 mg BID PO Last administered on 11/17/18 08:35; Admin Dose 6.25 MG; Start 11/17/18 at 09:00 Spironolactone (Aldactone) 100 mg BID PO Last administered on 11/17/18 08:36; Admin Dose 100 MG; Start 11/17/18 at 09:00 Enalapril Maleate (Vasotec) 2.5 mg DAILY PO Last administered on 11/17/18at 08:36; Admin Dose 2.5 MG; Start 11/17/18 at 09:00 Morphine Sulfate (morphine) 1 mg Q4H PRN IV PAIN LEVEL 4-6 Last administered on 11/17/18at 16:01; Admin Dose 1 MG; Start 11/17/18 at 11:00 Albuterol (Proventil 0.083% (Neb)) 2.5 mg Q2H RESP THERAPY PRN HHN SHORTNESS OF BREATH Last administered on 11/17/18at 13:13; Admin Dose 2.5 MG; Start 11/17/18 at 11:00 Hydromorphone HCl (Dilaudid) 0.5 mg Q4H PRN IV SEVERE PAIN LEVEL 7-10; Start 11/17/18 at 11:00 Ascorbic Acid (Vitamin C) 500 mg BID PO ; Start 11/17/18 at 21:00; Stop 11/27/18 at 20:59 Zinc Sulfate (Zinc Sulfate) 220 mg DAILY PO ; Start 11/18/18 at 09:00; Stop 11/28/18 at 08:59 Allergies: Coded Allergies: No Known Drug Allergies (Verified Allergy, Unknown, 11/16/18) Social History Smoking Status: Current every day smoker (IV drug use) Drug Use: other (Methamphetamine use) Exam/Review of Systems Vital Signs Vitals Vital Signs Date Temp Pulse Resp B/P (MAP) Pulse Ox O2 O2 Flow FiO2 Time Delivery Rate 11/17/18 94 16:01 11/17/18 98.0 20 116/80 95 15:18 (92) 11/17/18 Nasal 4.0 13:13 Cannula Exam Constitutional: alert, oriented (Family at bedside, no apparent distress) Head: normocephalic Respiratory: other (Coarse breath sounds, scattered crackles, no wheezing) Cardiovascular: regular rate and rhythm (S1-S2 heard) Gastrointestinal: soft, non-tender, bowel sounds Extremities: edema Labs Result Diagram: 11/17/18 0646 11/17/18 0646 Results 24hrs Laboratory Tests Test 11/16/18 23:31 11/17/18 06:46 White Blood Count 17.4 #H 16.6 H Red Blood Count 5.69 5.90 Hemoglobin 13.7 L 14.2 Hematocrit 45.8 47.8 Mean Corpuscular Volume 80.5 L 81.0 L Mean Corpuscular Hemoglobin 24.1 L 24.1 L Mean Corpuscular Hemoglobin Concent 29.9 L 29.7 L Red Cell Distribution Width 19.7 H 20.1 H Platelet Count 275 # 309 Mean Platelet Volume 9.8 9.8 Immature Granulocytes % 1.000 H 0.900 H Neutrophils % 89.9 H 88.6 H Lymphocytes % 3.3 L 5.1 L Monocytes % 5.3 4.8 Eosinophils % 0.3 0.4 Basophils % 0.2 0.2 Nucleated Red Blood Cells % 0.0 0.0 Immature Granulocytes # 0.180 H 0.150 H Neutrophils # 15.6 H 14.7 H Lymphocytes # 0.6 L 0.9 Monocytes # 0.9 0.8 Eosinophils # 0.1 0.1 Basophils # 0.0 0.0 Nucleated Red Blood Cells # 0.0 0.0 Sodium Level 134 L 136 Potassium Level 4.1 3.7 Chloride Level 90 L 93 L Carbon Dioxide Level 34 H 33 H Anion Gap 10 10 Blood Urea Nitrogen 46 H 45 H Creatinine 1.25 H 1.07 Est Glomerular Filtrat Rate mL/min > 60 > 60 Glucose Level 125 143 Calcium Level 9.0 8.9 Magnesium Level 1.7 1.8 Total Bilirubin 0.5 0.5 Direct Bilirubin 0.00 0.00 Indirect Bilirubin 0.5 0.5 Aspartate Amino Transf (AST/SGOT) 29 30 Alanine Aminotransferase (ALT/SGPT) 39 37 Alkaline Phosphatase 135 H 154 H B-Type Natriuretic Peptide 17627 H Total Protein 6.2 6.0 L Albumin 3.5 3.2 L Globulin 2.70 2.80 Albumin/Globulin Ratio 1.29 1.14 Erythrocyte Sedimentation Rate 1 Hemoglobin A1c 6.9 H C-Reactive Protein 3.1 H Thyroid Stimulating Hormone (TSH) 1.630 Medications Medications Current Medications IV Flush (NS 3 ml) 3 ml PER PROTOCOL IV ; Start 11/16/18 at 23:00 Ondansetron HCl (Zofran Inj) 4 mg Q6H PRN IV NAUSEA/VOMITING; Start 11/16/18 at 23:00 Acetaminophen (Tylenol Tab) 650 mg Q6H PRN PO .PAIN 1-3 OR TEMP; Start 11/16/18 at 23:00 Enoxaparin Sodium (Lovenox) 30 mg DAILY SC Last administered on 11/17/18 08:51; Admin Dose 30 MG; Start 11/17/18 at 09:00 Albuterol (Ventolin Hfa) 2 puff Q6H RESP THERAPY INH Last administered on 11/17/18 14:40; Admin Dose 2 PUFF; Start 11/17/18 at 00:00 Aspirin (Halfprin) 81 mg DAILY PO Last administered on 11/17/18 08:36; Admin Dose 81 MG; Start 11/17/18 at 09:00 Lorazepam (Ativan) 1 mg Q4H PRN IV CONTROL WITHDRAWAL SYMPTOMS Last administered on 11/17/18 00:55; Admin Dose 1 MG; Start 11/16/18 at 23:30 Furosemide (Lasix) 40 mg BID DIURETICS IV Last administered on 11/17/18 06:56; Admin Dose 40 MG; Start 11/17/18 at 06:00 Ceftriaxone Sodium 50 ml @ 100 mls/hr Q24H IVPB Last administered on 11/17/18 04:30; Admin Dose 100 MLS/HR; Start 11/17/18 at 04:30 Doxycycline Hyclate 100 mg/ Sodium Chloride 250 ml @ 250 mls/hr Q12 IVPB Last administered on 11/17/18 08:46; Admin Dose 250 MLS/HR; Start 11/17/18 at 09:00 Carvedilol (Coreg) 6.25 mg BID PO Last administered on 11/17/18 08:35; Admin Dose 6.25 MG; Start 11/17/18 at 09:00 Spironolactone (Aldactone) 100 mg BID PO Last administered on 11/17/18 08:36; Admin Dose 100 MG; Start 11/17/18 at 09:00 Enalapril Maleate (Vasotec) 2.5 mg DAILY PO Last administered on 11/17/18at 08:36; Admin Dose 2.5 MG; Start 11/17/18 at 09:00 Morphine Sulfate (morphine) 1 mg Q4H PRN IV PAIN LEVEL 4-6 Last administered on 11/17/18at 16:01; Admin Dose 1 MG; Start 11/17/18 at 11:00 Albuterol (Proventil 0.083% (Neb)) 2.5 mg Q2H RESP THERAPY PRN HHN SHORTNESS OF BREATH Last administered on 11/17/18at 13:13; Admin Dose 2.5 MG; Start 11/17/18 at 11:00 Hydromorphone HCl (Dilaudid) 0.5 mg Q4H PRN IV SEVERE PAIN LEVEL 7-10; Start 11/17/18 at 11:00 Ascorbic Acid (Vitamin C) 500 mg BID PO ; Start 11/17/18 at 21:00; Stop 11/27/18 at 20:59 Zinc Sulfate (Zinc Sulfate) 220 mg DAILY PO ; Start 11/18/18 at 09:00; Stop 11/28/18 at 08:59 Reginald Muñoz DO Nov 17, 2018 17:34
[2018-11-17] MEDS: ASCORBIC ACID 500 MG TAB PO SCH (20:15)
--- NOTE | 2018-11-17 22:42 | CONS ---
Assessment/Plan Assessment/Plan Hospital Course (Demo Recall) 48-year-old male admitted to the hospital because of acute on chronic systolic/diastolic congestive heart failure exacerbation: Echo from 11/04/2018 Ejection fraction is visually estimated at 15-20 %. Along with grade 3-4 diastolic dysfunction. Patient does have also COPD and liver cirrhosis from hepatitis C. A urological consultation was requested because of penoscrotal swelling and during his prior admission scrotal ultrasound raised the possibili ty of epididymitis. The patient at that time signed AMA. Even though the ultrasound that was done on the prior admission suspected epididymitis, clinically there is no epididymitis. He does have penoscrotal edema and that is a part of the generalized edema that he has in the abdomen his thighs and extremities. Therefore the treatment would be the same as it is for his generalized edema. Consultation Date/Type/Reason Admit Date/Time Nov 16, 2018 at 21:33 Date of Consultation: Nov 17, 2018 Type of Consult Urology Reason for Consultation Penoscrotal swelling, possible epididymitis Requesting Provider: DAMEON MADRIGAL MD Date/Time of Note DATE: 11/17/18 TIME: 22:29 Hx of Present Illness 48-year-old male admitted to the hospital because of acute on chronic systolic/diastolic congestive heart failure exacerbation: Echo from 11/04/2018 Ejection fraction is visually estimated at 15-20 %. Along with grade 3-4 diastolic dysfunction. Patient does have also COPD and liver cirrhosis from hepatitis C. A urological consultation was requested because of penoscrotal swelling and during his prior admission scrotal ultrasound raised the possibility of epididymitis. The patient at that time signed AMA. Constitutional: other (Patient is sleeping lethargic) Eyes: no complaints ENT: no complaints Respiratory: shortness of breath; No wheezing Gastrointestinal: other (Abdominal distention) Genitourinary: other (Penoscrotal edema) Musculoskeletal: no complaints Skin: other (Patient has tattoos almost all over his body) Neurologic: other (Patient is lethargic) Endocrine: no complaints Lymphatic: no complaints Past Medical History Medical History: congestive heart failure, hypertension, other (Hepatitis C and cirrhosis) Home Meds Active Scripts Carvedilol* (Carvedilol*) 6.25 Mg Tablet, 6.25 MG PO BID, #60 TAB Prov:JOSE BRADY MD 10/06/18 Furosemide* (Lasix*) 40 Mg Tablet, 40 MG PO BID, #60 TAB 1 Refill Take with Aldactone at the same time, try to take evening dose of both Lasix and Aldactone before 6 PM as to not effect your sleep Prov:JOSE BRADY MD 10/06/18 Spironolactone* (Aldactone*) 50 Mg Tablet, 100 MG PO BID, #60 TAB 1 Refill Prov:JOSE BRADY MD 10/06/18 Enalapril Maleate* (Enalapril Maleate*) 2.5 Mg Tablet, 2.5 MG PO DAILY, #60 TAB 0 Refills Prov:JOSE BRADY MD 10/06/18 Albuterol Sulfate* (Proair HFA*) 8.5 Gm Hfa.aer.ad, 2 PUFF INH Q6 for SOB, #1 INHALER Prov:JOSE BRADY MD 10/06/18 Reported Medications Aspirin Ec (Aspir 81) 81 Mg Tablet.dr, 81 MG PO DAILY, #30 TAB 11/03/18 Medications Current Medications IV Flush (NS 3 ml) 3 ml PER PROTOCOL IV ; Start 11/16/18 at 23:00 Ondansetron HCl (Zofran Inj) 4 mg Q6H PRN IV NAUSEA/VOMITING; Start 11/16/18 at 23:00 Acetaminophen (Tylenol Tab) 650 mg Q6H PRN PO .PAIN 1-3 OR TEMP; Start 11/16/18 at 23:00 Enoxaparin Sodium (Lovenox) 30 mg DAILY SC Last administered on 11/17/18at 08:51; Admin Dose 30 MG; Start 11/17/18 at 09:00 Albuterol (Ventolin Hfa) 2 puff Q6H RESP THERAPY INH Last administered on 11/17/18 20:18; Admin Dose 2 PUFF; Start 11/17/18 at 00:00 Aspirin (Halfprin) 81 mg DAILY PO Last administered on 11/17/18 08:36; Admin Dose 81 MG; Start 11/17/18 at 09:00 Lorazepam (Ativan) 1 mg Q4H PRN IV CONTROL WITHDRAWAL SYMPTOMS Last administered on 11/17/18at 18:57; Admin Dose 1 MG; Start 11/16/18 at 23:30 Furosemide (Lasix) 40 mg BID DIURETICS IV Last administered on 11/17/18 17:29; Admin Dose 40 MG; Start 11/17/18 at 06:00 Ceftriaxone Sodium 50 ml @ 100 mls/hr Q24H IVPB Last administered on 11/17/18 04:30; Admin Dose 100 MLS/HR; Start 11/17/18 at 04:30 Doxycycline Hyclate 100 mg/ Sodium Chloride 250 ml @ 250 mls/hr Q12 IVPB Last administered on 11/17/18 20:18; Admin Dose 250 MLS/HR; Start 11/17/18 at 09:00 Carvedilol (Coreg) 6.25 mg BID PO Last administered on 11/17/18 20:16; Admin Dose 6.25 MG; Start 11/17/18 at 09:00 Spironolactone (Aldactone) 100 mg BID PO Last administered on 11/17/18 20:15; Admin Dose 100 MG; Start 11/17/18 at 09:00 Enalapril Maleate (Vasotec) 2.5 mg DAILY PO Last administered on 11/17/18 08:36; Admin Dose 2.5 MG; Start 11/17/18 at 09:00 Morphine Sulfate (morphine) 1 mg Q4H PRN IV PAIN LEVEL 4-6 Last administered on 11/17/18 16:01; Admin Dose 1 MG; Start 11/17/18 at 11:00 Albuterol (Proventil 0.083% (Neb)) 2.5 mg Q2H RESP THERAPY PRN HHN SHORTNESS OF BREATH Last administered on 11/17/18 19:44; Admin Dose 2.5 MG; Start 11/17/18 at 11:00 Hydromorphone HCl (Dilaudid) 0.5 mg Q4H PRN IV SEVERE PAIN LEVEL 7-10; Start 11/17/18 at 11:00 Ascorbic Acid (Vitamin C) 500 mg BID PO Last administered on 11/17/18 20:15; Admin Dose 500 MG; Start 11/17/18 at 21:00; Stop 11/27/18 at 20:59 Zinc Sulfate (Zinc Sulfate) 220 mg DAILY PO ; Start 11/18/18 at 09:00; Stop 11/28/18 at 08:59 Allergies: Coded Allergies: No Known Drug Allergies (Verified Allergy, Unknown, 11/16/18) Past Surgical History Past Surgical Hx: no surgical history Social History Smoking Status: Current every day smoker (IV drug use) Drug Use: other (Methamphetamine use) Exam/Review of Systems Exam Vitals Vital Signs Date Temp Pulse Resp B/P (MAP) Pulse Ox O2 O2 Flow FiO2 Time Delivery Rate 11/17/18 102 20:10 11/17/18 98.5 22 129/83 95 20:00 (98) 11/17/18 21 19:44 11/17/18 2.0 19:44 11/17/18 Nasal 13:13 Cannula Constitutional: frail (And lethargic) Psych: no complaints Head: normocephalic Eyes: nl conjunctiva ENMT: nl external ears & nose Neck: supple Respiratory: normal air movement; No wheezing Cardiovascular: No jugular venous distention (JVD) Gastrointestinal: distended, other (As edema of the abdominal wall as well) Genitourinary - Male: other (Swollen penis and scrotum) Musculoskeletal: swelling Extremities: No calf tenderness Neurological: other (Lethargic) Skin: other (Edematous) Lymph: nl lymph nodes Results Result Diagram: 11/17/18 0646 11/17/18 0646 Results 24hrs Laboratory Tests Test 11/16/18 23:31 11/17/18 06:46 White Blood Count 17.4 #H 16.6 H Red Blood Count 5.69 5.90 Hemoglobin 13.7 L 14.2 Hematocrit 45.8 47.8 Mean Corpuscular Volume 80.5 L 81.0 L Mean Corpuscular Hemoglobin 24.1 L 24.1 L Mean Corpuscular Hemoglobin Concent 29.9 L 29.7 L Red Cell Distribution Width 19.7 H 20.1 H Platelet Count 275 # 309 Mean Platelet Volume 9.8 9.8 Immature Granulocytes % 1.000 H 0.900 H Neutrophils % 89.9 H 88.6 H Lymphocytes % 3.3 L 5.1 L Monocytes % 5.3 4.8 Eosinophils % 0.3 0.4 Basophils % 0.2 0.2 Nucleated Red Blood Cells % 0.0 0.0 Immature Granulocytes # 0.180 H 0.150 H Neutrophils # 15.6 H 14.7 H Lymphocytes # 0.6 L 0.9 Monocytes # 0.9 0.8 Eosinophils # 0.1 0.1 Basophils # 0.0 0.0 Nucleated Red Blood Cells # 0.0 0.0 Sodium Level 134 L 136 Potassium Level 4.1 3.7 Chloride Level 90 L 93 L Carbon Dioxide Level 34 H 33 H Anion Gap 10 10 Blood Urea Nitrogen 46 H 45 H Creatinine 1.25 H 1.07 Est Glomerular Filtrat Rate mL/min > 60 > 60 Glucose Level 125 143 Calcium Level 9.0 8.9 Magnesium Level 1.7 1.8 Total Bilirubin 0.5 0.5 Direct Bilirubin 0.00 0.00 Indirect Bilirubin 0.5 0.5 Aspartate Amino Transf (AST/SGOT) 29 30 Alanine Aminotransferase (ALT/SGPT) 39 37 Alkaline Phosphatase 135 H 154 H B-Type Natriuretic Peptide 57766 H Total Protein 6.2 6.0 L Albumin 3.5 3.2 L Globulin 2.70 2.80 Albumin/Globulin Ratio 1.29 1.14 Erythrocyte Sedimentation Rate 1 Hemoglobin A1c 6.9 H C-Reactive Protein 3.1 H Thyroid Stimulating Hormone (TSH) 1.630 Imaging Imaging Scrotal ultrasound: 1. Findings suggesting bilateral epididymitis with moderate scrotal thickening which may reflect edema and/or cellulitis. Correlate with clinical exam. 2. Left-sided varicocele. 3. Symmetrically normal-appearing testis. Abdominal ultrasound to check for ascites: 1. Small amount free fluid in the abdomen. 2. Paracentesis was not performed. Medications Medication Current Medications IV Flush (NS 3 ml) 3 ml PER PROTOCOL IV ; Start 11/16/18 at 23:00 Ondansetron HCl (Zofran Inj) 4 mg Q6H PRN IV NAUSEA/VOMITING; Start 11/16/18 at 23:00 Acetaminophen (Tylenol Tab) 650 mg Q6H PRN PO .PAIN 1-3 OR TEMP; Start 11/16/18 at 23:00 Enoxaparin Sodium (Lovenox) 30 mg DAILY SC Last administered on 11/17/18at 08:51; Admin Dose 30 MG; Start 11/17/18 at 09:00 Albuterol (Ventolin Hfa) 2 puff Q6H RESP THERAPY INH Last administered on 11/17/18at 20:18; Admin Dose 2 PUFF; Start 11/17/18 at 00:00 Aspirin (Halfprin) 81 mg DAILY PO Last administered on 11/17/18at 08:36; Admin Dose 81 MG; Start 11/17/18 at 09:00 Lorazepam (Ativan) 1 mg Q4H PRN IV CONTROL WITHDRAWAL SYMPTOMS Last administered on 11/17/18 18:57; Admin Dose 1 MG; Start 11/16/18 at 23:30 Furosemide (Lasix) 40 mg BID DIURETICS IV Last administered on 11/17/18 17:29; Admin Dose 40 MG; Start 11/17/18 at 06:00 Ceftriaxone Sodium 50 ml @ 100 mls/hr Q24H IVPB Last administered on 11/17/18 04:30; Admin Dose 100 MLS/HR; Start 11/17/18 at 04:30 Doxycycline Hyclate 100 mg/ Sodium Chloride 250 ml @ 250 mls/hr Q12 IVPB Last administered on 11/17/18 20:18; Admin Dose 250 MLS/HR; Start 11/17/18 at 09:00 Carvedilol (Coreg) 6.25 mg BID PO Last administered on 11/17/18 20:16; Admin Dose 6.25 MG; Start 11/17/18 at 09:00 Spironolactone (Aldactone) 100 mg BID PO Last administered on 11/17/18 20:15; Admin Dose 100 MG; Start 11/17/18 at 09:00 Enalapril Maleate (Vasotec) 2.5 mg DAILY PO Last administered on 11/17/18 08:36; Admin Dose 2.5 MG; Start 11/17/18 at 09:00 Morphine Sulfate (morphine) 1 mg Q4H PRN IV PAIN LEVEL 4-6 Last administered on 11/17/18 16:01; Admin Dose 1 MG; Start 11/17/18 at 11:00 Albuterol (Proventil 0.083% (Neb)) 2.5 mg Q2H RESP THERAPY PRN HHN SHORTNESS OF BREATH Last administered on 11/17/18 19:44; Admin Dose 2.5 MG; Start 11/17/18 at 11:00 Hydromorphone HCl (Dilaudid) 0.5 mg Q4H PRN IV SEVERE PAIN LEVEL 7-10; Start 11/17/18 at 11:00 Ascorbic Acid (Vitamin C) 500 mg BID PO Last administered on 11/17/18 20:15; Admin Dose 500 MG; Start 11/17/18 at 21:00; Stop 11/27/18 at 20:59 Zinc Sulfate (Zinc Sulfate) 220 mg DAILY PO ; Start 11/18/18 at 09:00; Stop 11/28/18 at 08:59 TK CHANDLER MD Nov 17, 2018 22:40
[2018-11-17] MEDS: HYDROmorphONE 0.5 MG/0.5 ML SYG IV PRN (23:06)
[2018-11-18] VITALS (10 sets, daily range): BP systolic 112–132; BP diastolic 70–89; PULSE 87–96; RESP 19–22
[2018-11-18] MEDS: ALBUTEROL HFA 8 GM INHALER INH SCH ×4 (03:33→19:05)
[2018-11-18] MEDS: HYDROmorphONE 0.5 MG/0.5 ML SYG IV PRN ×4 (03:36→21:03)
[2018-11-18] MEDS: CEFTRIAXONE 1 GM/50 ML (PMX) 50 ML IVPB SCH (05:04)
[2018-11-18] MEDS: FUROSEMIDE 40 MG INJ IV SCH ×2 (05:36→17:16)
[2018-11-18] MEDS: SPIRONOLACTONE 50 MG TAB PO SCH ×2 (08:15→20:19)
[2018-11-18] MEDS: ENALAPRIL 2.5 MG TAB PO SCH (08:16)
[2018-11-18] MEDS: ZINC SULFATE 220 MG CAP PO SCH (08:16)
[2018-11-18] MEDS: ASCORBIC ACID 500 MG TAB PO SCH ×2 (08:16→20:19)
[2018-11-18] MEDS: ASPIRIN (EC) 81 MG TAB PO SCH (08:16)
[2018-11-18] MEDS: DOXYCYCLINE 100 MG in SOD CHLORIDE 0.9% 250 ML IVPB SCH (08:17)
[2018-11-18] MEDS: ENOXAPARIN 30 MG/0.3 ML SYG SC SCH (08:23)
--- NOTE | 2018-11-18 15:08 | PN ---
Date/Time of Note Date/Time of Note DATE: 11/18/18 TIME: 15:04 Assessment/Plan VTE Prophylaxis Risk score (from Ns)>0 risk: 5 SCD applied (from Ns): No SCD contraindicated: low risk/ambulating Pharmacological prophylaxis: LMWH Lines/Catheters IV C[facility]ter Type [facility]from [facility] Saline Lock Urinary Cath still in place: No Assessment/Plan Assessment/Plan 1. 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 Will decrease Lasix to daily tomorrow given rise in creatinine. continue Aldactone - EF from last admission noted to be 15-20% - BNP noted - CXR seen with mild pulmonary congestion - monitor I/O and daily weights 2. Scrotal swelling - etiology CHF - having difficulty urinating as well - Urology consultation appreciated 3. Liver cirrhosis secondary to hep C - continue current diuretics 4. COPD - nebs PRN - not in exacerbation 5. Illicit drug use - Ativan for withdrawal symptoms, social work consult. 6. Community acquired pneumonia - seen on CXR - will deescalate to Rocephin and monitor for continued improvement 7. Disposition - Continue diuresing and adjustments made to diuretic dosage tomorrow Result Diagram: 11/18/18 0720 11/18/18 0720 Results 24hrs Laboratory Tests Test 11/17/18 21:30 11/18/18 07:20 Urine Color YELLOW Urine Clarity CLEAR Urine pH 7.0 Urine Specific [place] 1.009 Urine Ketones NEGATIVE Urine Nitrite NEGATIVE Urine Bilirubin NEGATIVE Urine Urobilinogen 2+ H Urine Leukocyte Esterase NEGATIVE Urine Hemoglobin NEGATIVE Urine Glucose NEGATIVE Urine Total Protein NEGATIVE Urine Opiates Screen Positive Urine Barbiturates Negative Urine Amphetamines Screen Negative Urine Benzodiazepines Screen Negative Urine Cocaine Screen Negative Urine Cannabinoids Negative White Blood Count 10.3 # Red Blood Count 6.04 Hemoglobin 14.4 Hematocrit 49.1 Mean Corpuscular Volume 81.3 L Mean Corpuscular Hemoglobin 23.8 L Mean Corpuscular Hemoglobin Concent 29.3 L Red Cell Distribution Width 20.3 H Platelet Count 315 Mean Platelet Volume 9.7 Immature Granulocytes % 0.700 H Neutrophils % 75.0 Lymphocytes % 14.1 L Monocytes % 9.0 Eosinophils % 1.1 Basophils % 0.1 Nucleated Red Blood Cells % 0.0 Immature Granulocytes # 0.070 H Neutrophils # 7.7 H Lymphocytes # 1.5 Monocytes # 0.9 Eosinophils # 0.1 Basophils # 0.0 Nucleated Red Blood Cells # 0.0 Sodium Level 138 Potassium Level 3.8 Chloride Level 91 L Carbon Dioxide Level 38 H Anion Gap 9 Blood Urea Nitrogen 44 H Creatinine 1.20 Est Glomerular Filtrat Rate mL/min > 60 Glucose Level 124 Calcium Level 8.8 Total Bilirubin 0.6 Direct Bilirubin 0.00 Indirect Bilirubin 0.6 Aspartate Amino Transf (AST/SGOT) 34 Alanine Aminotransferase (ALT/SGPT) 41 Alkaline Phosphatase 126 H Total Protein 6.1 Albumin 3.3 Globulin 2.80 Albumin/Globulin Ratio 1.17 Subjective 24 Hr Interval Summary Free Text/Dictation Patient states hes feeling better and scrotal swelling has slightly improved. Continue with good urine output. Exam/Review of Systems Exam Vitals Vital Signs Date Temp Pulse Resp B/P (MAP) Pulse Ox O2 O2 Flow FiO2 Time Delivery Rate 11/18/18 88 12:37 11/18/18 97.3 20 122/83 95 Room Air 11:52 (96) 11/18/18 3.0 07:35 11/18/18 21 02:58 Intake and Output 11/17/18 11/17/18 11/18/18 1515:00 23:00 07:00 IntakeIntake Total 50 ml 950 ml 800 ml OutputOutput Total 700 ml 1330 ml 1200 ml BalanceBalance -650 ml -380 ml -400 ml Exam General: sitting up in bed. no acute distress Chest: Nontender Lungs: Coarse breath sounds bilaterally, no wheezing appreciated Heart: Normal S1-S2, Regular rhythm and rate. no murmurs Abdomen: Soft , nontender, mildly distended, no fluid shift appreciated, bowel sounds are present. No guarding no rebound tenderness Extremities: 1+ pitting edema of the bilateral lower extremities : improved swelling of scrotum and penile head Results Results 24hrs Laboratory Tests Test 11/17/18 21:30 11/18/18 07:20 Urine Color YELLOW Urine Clarity CLEAR Urine pH 7.0 Urine Specific [place] 1.009 Urine Ketones NEGATIVE Urine Nitrite NEGATIVE Urine Bilirubin NEGATIVE Urine Urobilinogen 2+ H Urine Leukocyte Esterase NEGATIVE Urine Hemoglobin NEGATIVE Urine Glucose NEGATIVE Urine Total Protein NEGATIVE Urine Opiates Screen Positive Urine Barbiturates Negative Urine Amphetamines Screen Negative Urine Benzodiazepines Screen Negative Urine Cocaine Screen Negative Urine Cannabinoids Negative White Blood Count 10.3 # Red Blood Count 6.04 Hemoglobin 14.4 Hematocrit 49.1 Mean Corpuscular Volume 81.3 L Mean Corpuscular Hemoglobin 23.8 L Mean Corpuscular Hemoglobin Concent 29.3 L Red Cell Distribution Width 20.3 H Platelet Count 315 Mean Platelet Volume 9.7 Immature Granulocytes % 0.700 H Neutrophils % 75.0 Lymphocytes % 14.1 L Monocytes % 9.0 Eosinophils % 1.1 Basophils % 0.1 Nucleated Red Blood Cells % 0.0 Immature Granulocytes # 0.070 H Neutrophils # 7.7 H Lymphocytes # 1.5 Monocytes # 0.9 Eosinophils # 0.1 Basophils # 0.0 Nucleated Red Blood Cells # 0.0 Sodium Level 138 Potassium Level 3.8 Chloride Level 91 L Carbon Dioxide Level 38 H Anion Gap 9 Blood Urea Nitrogen 44 H Creatinine 1.20 Est Glomerular Filtrat Rate mL/min > 60 Glucose Level 124 Calcium Level 8.8 Total Bilirubin 0.6 Direct Bilirubin 0.00 Indirect Bilirubin 0.6 Aspartate Amino Transf (AST/SGOT) 34 Alanine Aminotransferase (ALT/SGPT) 41 Alkaline Phosphatase 126 H Total Protein 6.1 Albumin 3.3 Globulin 2.80 Albumin/Globulin Ratio 1.17 Medications Medication Current Medications IV Flush (NS 3 ml) 3 ml PER PROTOCOL IV ; Start 11/16/18 at 23:00 Ondansetron HCl (Zofran Inj) 4 mg Q6H PRN IV NAUSEA/VOMITING; Start 11/16/18 at 23:00 Acetaminophen (Tylenol Tab) 650 mg Q6H PRN PO .PAIN 1-3 OR TEMP; Start 11/16/18 at 23:00 Enoxaparin Sodium (Lovenox) 30 mg DAILY SC Last administered on 11/18/18 08:23; Admin Dose 30 MG; Start 11/17/18 at 09:00 Albuterol (Ventolin Hfa) 2 puff Q6H RESP THERAPY INH Last administered on 11/18/18 13:55; Admin Dose 2 PUFF; Start 11/17/18 at 00:00 Aspirin (Halfprin) 81 mg DAILY PO Last administered on 11/18/18 08:16; Admin Dose 81 MG; Start 11/17/18 at 09:00 Lorazepam (Ativan) 1 mg Q4H PRN IV CONTROL WITHDRAWAL SYMPTOMS Last administered on 11/17/18 18:57; Admin Dose 1 MG; Start 11/16/18 at 23:30 Furosemide (Lasix) 40 mg BID DIURETICS IV Last administered on 11/18/18 05:36; Admin Dose 40 MG; Start 11/17/18 at 06:00 Ceftriaxone Sodium 50 ml @ 100 mls/hr Q24H IVPB Last administered on 11/18/18 05:04; Admin Dose 100 MLS/HR; Start 11/17/18 at 04:30 Carvedilol (Coreg) 6.25 mg BID PO Last administered on 11/18/18 08:15; Admin Dose 6.25 MG; Start 11/17/18 at 09:00 Spironolactone (Aldactone) 100 mg BID PO Last administered on 11/18/18 08:15; Admin Dose 100 MG; Start 11/17/18 at 09:00 Enalapril Maleate (Vasotec) 2.5 mg DAILY PO Last administered on 11/18/18 08:16; Admin Dose 2.5 MG; Start 11/17/18 at 09:00 Morphine Sulfate (morphine) 1 mg Q4H PRN IV PAIN LEVEL 4-6 Last administered on 11/17/18 16:01; Admin Dose 1 MG; Start 11/17/18 at 11:00 Albuterol (Proventil 0.083% (Neb)) 2.5 mg Q2H RESP THERAPY PRN HHN SHORTNESS OF BREATH Last administered on 11/17/18 19:44; Admin Dose 2.5 MG; Start 11/17/18 at 11:00 Hydromorphone HCl (Dilaudid) 0.5 mg Q4H PRN IV SEVERE PAIN LEVEL 7-10 Last administered on 11/18/18 14:09; Admin Dose 0.5 MG; Start 11/17/18 at 11:00 Ascorbic Acid (Vitamin C) 500 mg BID PO Last administered on 11/18/18 08:16; Admin Dose 500 MG; Start 11/17/18 at 21:00; Stop 11/27/18 at 20:59 Zinc Sulfate (Zinc Sulfate) 220 mg DAILY PO Last administered on 11/18/18 08:16; Admin Dose 220 MG; Start 11/18/18 at 09:00; Stop 11/28/18 at 08:59 DAMEON MADRIGAL MD Nov 18, 2018 15:08
[2018-11-18] MEDS: ALBUTEROL 0.083% (NEB) 2.5 MG/3 ML AMP HHN PRN (20:58)
--- NOTE | 2018-11-18 21:32 | CONS ---
Assessment/Plan Cardiology NYHA: III Heart Failure Type: Acute on Chronic Heart Failure Type: Systolic Assessment/Plan Hospital Course (Demo Recall) Acute decompensated systolic congestive heart failure Cardiomyopathy with left ventricular ejection fraction 50-20% Recent methamphetamine use MARIBEL -Patient presents with decompensated congestive heart failure likely secondary to poor compliance and illicit drug use. Does have a known history of methamphetamine use with recent admission in the past 2 weeks. He did leave AGAINST MEDICAL ADVICE the last admission -Continue beta-blockers heart rate and blood pressure permits, AKANKSHA inhibitor as renal function blood pressure permits -Agree with decreasing diuretics given renal function, titrate as needed -Maintain potassium above 4.0 and magnesium above 2.0 - Consultation Date/Type/Reason Admit Date/Time Nov 16, 2018 at 21:33 Initial Consult Date 11/17/18 Type of Consult Cardiology Requesting Provider: DAMEON MADRIGAL MD Date/Time of Note DATE: 11/18/18 TIME: 21:30 24 HR Interval Summary Free Text/Dictation sob better, no cp, palp Exam/Review of Systems Vital Signs Vitals Vital Signs Date Temp Pulse Resp B/P (MAP) Pulse Ox O2 O2 Flow FiO2 Time Delivery Rate 11/18/18 97 20 100 Nasal 4.0 21:00 Cannula 11/18/18 97.5 132/89 20:00 (103) 11/18/18 21 02:58 Intake and Output 11/17/18 11/17/18 11/18/18 1515:00 23:00 07:00 IntakeIntake Total 50 ml 950 ml 800 ml OutputOutput Total 700 ml 1330 ml 1200 ml BalanceBalance -650 ml -380 ml -400 ml Exam Constitutional: alert, oriented (nad, eating lunch) Head: normocephalic Respiratory: other (course bs, no wheeze) Cardiovascular: regular rate and rhythm (s1s2) Gastrointestinal: soft, non-tender, bowel sounds Extremities: edema Labs Result Diagram: 11/18/18 0720 11/18/18 0720 Results 24hrs Laboratory Tests Test 11/18/18 07:20 White Blood Count 10.3 # Red Blood Count 6.04 Hemoglobin 14.4 Hematocrit 49.1 Mean Corpuscular Volume 81.3 L Mean Corpuscular Hemoglobin 23.8 L Mean Corpuscular Hemoglobin Concent 29.3 L Red Cell Distribution Width 20.3 H Platelet Count 315 Mean Platelet Volume 9.7 Immature Granulocytes % 0.700 H Neutrophils % 75.0 Lymphocytes % 14.1 L Monocytes % 9.0 Eosinophils % 1.1 Basophils % 0.1 Nucleated Red Blood Cells % 0.0 Immature Granulocytes # 0.070 H Neutrophils # 7.7 H Lymphocytes # 1.5 Monocytes # 0.9 Eosinophils # 0.1 Basophils # 0.0 Nucleated Red Blood Cells # 0.0 Sodium Level 138 Potassium Level 3.8 Chloride Level 91 L Carbon Dioxide Level 38 H Anion Gap 9 Blood Urea Nitrogen 44 H Creatinine 1.20 Est Glomerular Filtrat Rate mL/min > 60 Glucose Level 124 Calcium Level 8.8 Total Bilirubin 0.6 Direct Bilirubin 0.00 Indirect Bilirubin 0.6 Aspartate Amino Transf (AST/SGOT) 34 Alanine Aminotransferase (ALT/SGPT) 41 Alkaline Phosphatase 126 H Total Protein 6.1 Albumin 3.3 Globulin 2.80 Albumin/Globulin Ratio 1.17 Medications Medications Current Medications IV Flush (NS 3 ml) 3 ml PER PROTOCOL IV ; Start 11/16/18 at 23:00 Ondansetron HCl (Zofran Inj) 4 mg Q6H PRN IV NAUSEA/VOMITING; Start 11/16/18 at 23:00 Acetaminophen (Tylenol Tab) 650 mg Q6H PRN PO .PAIN 1-3 OR TEMP; Start 11/16/18 at 23:00 Enoxaparin Sodium (Lovenox) 30 mg DAILY SC Last administered on 11/18/18 08:23; Admin Dose 30 MG; Start 11/17/18 at 09:00 Albuterol (Ventolin Hfa) 2 puff Q6H RESP THERAPY INH Last administered on 11/18/18at 19:05; Admin Dose 2 PUFF; Start 11/17/18 at 00:00 Aspirin (Halfprin) 81 mg DAILY PO Last administered on 11/18/18 08:16; Admin Dose 81 MG; Start 11/17/18 at 09:00 Lorazepam (Ativan) 1 mg Q4H PRN IV CONTROL WITHDRAWAL SYMPTOMS Last administered on 11/17/18 18:57; Admin Dose 1 MG; Start 11/16/18 at 23:30 Furosemide (Lasix) 40 mg BID DIURETICS IV Last administered on 11/18/18 17:16; Admin Dose 40 MG; Start 11/17/18 at 06:00; Stop 11/18/18 at 23:55 Ceftriaxone Sodium 50 ml @ 100 mls/hr Q24H IVPB Last administered on 11/18/18 05:04; Admin Dose 100 MLS/HR; Start 11/17/18 at 04:30 Carvedilol (Coreg) 6.25 mg BID PO Last administered on 11/18/18 20:20; Admin Dose 6.25 MG; Start 11/17/18 at 09:00 Spironolactone (Aldactone) 100 mg BID PO Last administered on 11/18/18 20:19; Admin Dose 100 MG; Start 11/17/18 at 09:00 Enalapril Maleate (Vasotec) 2.5 mg DAILY PO Last administered on 11/18/18 08:16; Admin Dose 2.5 MG; Start 11/17/18 at 09:00 Morphine Sulfate (morphine) 1 mg Q4H PRN IV PAIN LEVEL 4-6 Last administered on 11/17/18 16:01; Admin Dose 1 MG; Start 11/17/18 at 11:00 Albuterol (Proventil 0.083% (Neb)) 2.5 mg Q2H RESP THERAPY PRN HHN SHORTNESS OF BREATH Last administered on 11/18/18 20:58; Admin Dose 2.5 MG; Start 11/17/18 at 11:00 Hydromorphone HCl (Dilaudid) 0.5 mg Q4H PRN IV SEVERE PAIN LEVEL 7-10 Last administered on 11/18/18 21:03; Admin Dose 0.5 MG; Start 11/17/18 at 11:00 Ascorbic Acid (Vitamin C) 500 mg BID PO Last administered on 11/18/18 20:19; Admin Dose 500 MG; Start 11/17/18 at 21:00; Stop 11/27/18 at 20:59 Zinc Sulfate (Zinc Sulfate) 220 mg DAILY PO Last administered on 11/18/18 08:16; Admin Dose 220 MG; Start 11/18/18 at 09:00; Stop 11/28/18 at 08:59 Furosemide (Lasix) 40 mg DAILY IV ; Start 11/19/18 at 09:00 Reginald Muñoz DO Nov 18, 2018 21:32
[2018-11-19] VITALS (10 sets, daily range): BP systolic 118–130; BP diastolic 61–82; PULSE 78–101; RESP 18–19
[2018-11-19] MEDS: ALBUTEROL HFA 8 GM INHALER INH SCH ×4 (02:04→20:33)
[2018-11-19] MEDS: HYDROmorphONE 0.5 MG/0.5 ML SYG IV PRN ×3 (02:06→20:35)
[2018-11-19] MEDS: CEFTRIAXONE 1 GM/50 ML (PMX) 50 ML IVPB SCH (04:23)
[2018-11-19] MEDS: morphine 2 MG INJ IV PRN (06:23)
[2018-11-19] MEDS: ZINC SULFATE 220 MG CAP PO SCH (08:33)
[2018-11-19] MEDS: ASCORBIC ACID 500 MG TAB PO SCH ×2 (08:33→20:32)
[2018-11-19] MEDS: ASPIRIN (EC) 81 MG TAB PO SCH (08:34)
[2018-11-19] MEDS: SPIRONOLACTONE 50 MG TAB PO SCH ×2 (08:35→20:32)
[2018-11-19] MEDS: ENALAPRIL 2.5 MG TAB PO SCH (08:35)
[2018-11-19] MEDS: FUROSEMIDE 40 MG INJ IV SCH (08:36)
[2018-11-19] MEDS: ENOXAPARIN 30 MG/0.3 ML SYG SC SCH (08:41)
--- NOTE | 2018-11-19 09:22 | PN ---
Date/Time of Note Date/Time of Note DATE: 11/19/18 TIME: 09:22 Assessment/Plan VTE Prophylaxis Risk score (from [facility] [place] risk: 6 SCD applied (from [facility] [place] No SCD contraindicated: patient refusal Pharmacological prophylaxis: LMWH Lines/Catheters IV [facility]atheter Type (from [facility] Saline Lock Urinary Cath still in place: No Assessment/Plan Assessment/Plan 1. 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 Continue current treatment and monitor I/O - Discussed with patient need for compliance with water restriction - EF from last admission noted to be 15-20% - BNP noted - CXR seen with mild pulmonary congestion - monitor I/O and daily weights 2. Scrotal swelling- improving - etiology CHF - Urology consultation appreciated 3. Liver cirrhosis secondary to hep C - continue current diuretics 4. COPD - nebs PRN - not in exacerbation 5. Illicit drug use - Ativan for withdrawal symptoms, social work consult. 6. Community acquired pneumonia - seen on CXR - continue Rocephin 7. Disposition - If continues to diurese well, will transition to PO Lasix - Will need to assess for home O2 prior to discharge Result Diagram: 11/19/18 0750 11/18/18 0720 Results 24hrs Laboratory Tests Test 11/19/18 07:50 White Blood Count 9.9 Red Blood Count 6.05 Hemoglobin 14.4 Hematocrit 48.5 Mean Corpuscular Volume 80.2 L Mean Corpuscular Hemoglobin 23.8 L Mean Corpuscular Hemoglobin Concent 29.7 L Red Cell Distribution Width 20.4 H Platelet Count 325 Mean Platelet Volume 9.6 Immature Granulocytes % 0.500 H Neutrophils % 68.1 Lymphocytes % 18.4 Monocytes % 11.0 Eosinophils % 1.8 Basophils % 0.2 Nucleated Red Blood Cells % 0.0 Immature Granulocytes # 0.050 H Neutrophils # 6.7 Lymphocytes # 1.8 Monocytes # 1.1 H Eosinophils # 0.2 Basophils # 0.0 Nucleated Red Blood Cells # 0.0 Subjective 24 Hr Interval Summary Free Text/Dictation Patient states hes continuing to urinate a lot but does not feel as if abdominal swelling is continuing to improve. Discussed fluid restriction given patient continues to ask for ice chips. No acute overnight events. Exam/Review of Systems Exam Vitals Vital Signs Date Temp Pulse Resp B/P (MAP) Pulse Ox O2 O2 Flow FiO2 Time Delivery Rate 11/19/18 Nasal 3.0 07:48 Cannula 11/19/18 98.0 78 18 126/78 99 07:43 (94) 11/18/18 21 02:58 Intake and Output 11/18/18 11/18/18 11/19/18 1414:59 22:59 06:59 IntakeIntake Total 300 ml 1400 ml 600 ml OutputOutput Total 3000 ml 950 ml BalanceBalance 300 ml -1600 ml -350 ml Exam General: sitting up in bed. no acute distress Chest: Nontender Lungs:Diminished sounds bilaterally, no wheezing appreciated Heart: Normal S1-S2, Regular rhythm and rate. no murmurs Abdomen: Soft , nontender, protuberant , no fluid shift appreciated, bowel sounds are present. No guarding no rebound tenderness Extremities: 1+ pitting edema of the bilateral lower extremities : improved swelling of scrotum and penile head Results Results 24hrs Laboratory Tests Test 11/19/18 07:50 White Blood Count 9.9 Red Blood Count 6.05 Hemoglobin 14.4 Hematocrit 48.5 Mean Corpuscular Volume 80.2 L Mean Corpuscular Hemoglobin 23.8 L Mean Corpuscular Hemoglobin Concent 29.7 L Red Cell Distribution Width 20.4 H Platelet Count 325 Mean Platelet Volume 9.6 Immature Granulocytes % 0.500 H Neutrophils % 68.1 Lymphocytes % 18.4 Monocytes % 11.0 Eosinophils % 1.8 Basophils % 0.2 Nucleated Red Blood Cells % 0.0 Immature Granulocytes # 0.050 H Neutrophils # 6.7 Lymphocytes # 1.8 Monocytes # 1.1 H Eosinophils # 0.2 Basophils # 0.0 Nucleated Red Blood Cells # 0.0 Medications Medication Current Medications IV Flush (NS 3 ml) 3 ml PER PROTOCOL IV ; Start 11/16/18 at 23:00 Ondansetron HCl (Zofran Inj) 4 mg Q6H PRN IV NAUSEA/VOMITING; Start 11/16/18 at 23:00 Acetaminophen (Tylenol Tab) 650 mg Q6H PRN PO .PAIN 1-3 OR TEMP; Start 11/16/18 at 23:00 Enoxaparin Sodium (Lovenox) 30 mg DAILY SC Last administered on 11/19/18at 08:41; Admin Dose 30 MG; Start 11/17/18 at 09:00 Albuterol (Ventolin Hfa) 2 puff Q6H RESP THERAPY INH Last administered on 11/19/18 07:14; Admin Dose 2 PUFF; Start 11/17/18 at 00:00 Aspirin (Halfprin) 81 mg DAILY PO Last administered on 11/19/18 08:34; Admin Dose 81 MG; Start 11/17/18 at 09:00 Lorazepam (Ativan) 1 mg Q4H PRN IV CONTROL WITHDRAWAL SYMPTOMS Last administered on 11/17/18 18:57; Admin Dose 1 MG; Start 11/16/18 at 23:30 Ceftriaxone Sodium 50 ml @ 100 mls/hr Q24H IVPB Last administered on 11/19/18 04:23; Admin Dose 100 MLS/HR; Start 11/17/18 at 04:30 Carvedilol (Coreg) 6.25 mg BID PO Last administered on 11/19/18 08:35; Admin Dose 6.25 MG; Start 11/17/18 at 09:00 Spironolactone (Aldactone) 100 mg BID PO Last administered on 11/19/18 08:35; Admin Dose 100 MG; Start 11/17/18 at 09:00 Enalapril Maleate (Vasotec) 2.5 mg DAILY PO Last administered on 11/19/18 08:35; Admin Dose 2.5 MG; Start 11/17/18 at 09:00 Morphine Sulfate (morphine) 1 mg Q4H PRN IV PAIN LEVEL 4-6 Last administered on 11/19/18 06:23; Admin Dose 1 MG; Start 11/17/18 at 11:00 Albuterol (Proventil 0.083% (Neb)) 2.5 mg Q2H RESP THERAPY PRN HHN SHORTNESS OF BREATH Last administered on 11/18/18 20:58; Admin Dose 2.5 MG; Start 11/17/18 at 11:00 Hydromorphone HCl (Dilaudid) 0.5 mg Q4H PRN IV SEVERE PAIN LEVEL 7-10 Last administered on 11/19/18 02:06; Admin Dose 0.5 MG; Start 11/17/18 at 11:00 Ascorbic Acid (Vitamin C) 500 mg BID PO Last administered on 11/19/18 08:33; Admin Dose 500 MG; Start 11/17/18 at 21:00; Stop 11/27/18 at 20:59 Zinc Sulfate (Zinc Sulfate) 220 mg DAILY PO Last administered on 11/19/18at 08:33; Admin Dose 220 MG; Start 11/18/18 at 09:00; Stop 11/28/18 at 08:59 Furosemide (Lasix) 40 mg DAILY IV Last administered on 11/19/18at 08:36; Admin Do se 40 MG; Start 11/19/18 at 09:00 DAMEON MADRIGAL MD Nov 19, 2018 09:22
--- NOTE | 2018-11-19 16:42 | CONS ---
Assessment/Plan Cardiology NYHA: III Heart Failure Type: Acute on Chronic Heart Failure Type: Systolic Assessment/Plan Hospital Course (Demo Recall) Acute decompensated systolic congestive heart failure Cardiomyopathy with left ventricular ejection fraction 50-20% Recent methamphetamine use MARIBEL -Patient presents with decompensated congestive heart failure likely secondary to poor compliance and illicit drug use. Does have a known history of methamphetamine use with recent admission in the past 2 weeks. He did leave AGAINST MEDICAL ADVICE the last admission -Extra dose of Lasix this afternoon -Continue beta-blockers heart rate and blood pressure permits, change enalapril to lisinopril given once a day dosing -Maintain potassium above 4.0 and magnesium above 2.0 Consultation Date/Type/Reason Admit Date/Time Nov 16, 2018 at 21:33 Initial Consult Date 11/17/18 Type of Consult Cardiology Requesting Provider: DAMEON MADRIGAL MD Date/Time of Note DATE: 11/19/18 TIME: 16:40 24 HR Interval Summary Free Text/Dictation Shortness of breath is better. Denies chest pain, palpitations Exam/Review of Systems Vital Signs Vitals Vital Signs Date Temp Pulse Resp B/P (MAP) Pulse Ox O2 O2 Flow FiO2 Time Delivery Rate 11/19/18 98.2 78 18 126/78 97 Nasal 15:12 (94) Cannula 11/19/18 3.0 07:48 11/18/18 21 02:58 Intake and Output 11/18/18 11/18/18 11/19/18 1515:00 23:00 07:00 IntakeIntake Total 300 ml 1400 ml 600 ml OutputOutput Total 3000 ml 950 ml BalanceBalance 300 ml -1600 ml -350 ml Exam Constitutional: alert, oriented (No apparent distress) Head: normocephalic Respiratory: other (Coarse breath sounds bilaterally, no wheezing) Cardiovascular: regular rate and rhythm (S1-S2 heard) Gastrointestinal: soft, non-tender, bowel sounds Extremities: edema Labs Result Diagram: 11/19/18 0750 11/19/18 0750 Results 24hrs Laboratory Tests Test 11/19/18 07:50 White Blood Count 9.9 Red Blood Count 6.05 Hemoglobin 14.4 Hematocrit 48.5 Mean Corpuscular Volume 80.2 L Mean Corpuscular Hemoglobin 23.8 L Mean Corpuscular Hemoglobin Concent 29.7 L Red Cell Distribution Width 20.4 H Platelet Count 325 Mean Platelet Volume 9.6 Immature Granulocytes % 0.500 H Neutrophils % 68.1 Lymphocytes % 18.4 Monocytes % 11.0 Eosinophils % 1.8 Basophils % 0.2 Nucleated Red Blood Cells % 0.0 Immature Granulocytes # 0.050 H Neutrophils # 6.7 Lymphocytes # 1.8 Monocytes # 1.1 H Eosinophils # 0.2 Basophils # 0.0 Nucleated Red Blood Cells # 0.0 Sodium Level 138 Potassium Level 4.1 Chloride Level 95 L Carbon Dioxide Level 37 H Anion Gap 6 Blood Urea Nitrogen 38 H Creatinine 0.97 Est Glomerular Filtrat Rate mL/min > 60 Glucose Level 74 # Calcium Level 9.1 Total Bilirubin 1.0 Direct Bilirubin 0.00 Indirect Bilirubin 1.0 Aspartate Amino Transf (AST/SGOT) 35 Alanine Aminotransferase (ALT/SGPT) 37 Alkaline Phosphatase 130 H Total Protein 6.0 L Albumin 3.2 L Globulin 2.80 Albumin/Globulin Ratio 1.14 Medications Medications Current Medications IV Flush (NS 3 ml) 3 ml PER PROTOCOL IV ; Start 11/16/18 at 23:00 Ondansetron HCl (Zofran Inj) 4 mg Q6H PRN IV NAUSEA/VOMITING; Start 11/16/18 at 23:00 Acetaminophen (Tylenol Tab) 650 mg Q6H PRN PO .PAIN 1-3 OR TEMP; Start 11/16/18 at 23:00 Enoxaparin Sodium (Lovenox) 30 mg DAILY SC Last administered on 11/19/18 08:41; Admin Dose 30 MG; Start 11/17/18 at 09:00 Albuterol (Ventolin Hfa) 2 puff Q6H RESP THERAPY INH Last administered on 11/19/18 14:13; Admin Dose 2 PUFF; Start 11/17/18 at 00:00 Aspirin (Halfprin) 81 mg DAILY PO Last administered on 11/19/18 08:34; Admin Dose 81 MG; Start 11/17/18 at 09:00 Lorazepam (Ativan) 1 mg Q4H PRN IV CONTROL WITHDRAWAL SYMPTOMS Last administered on 11/17/18 18:57; Admin Dose 1 MG; Start 11/16/18 at 23:30 Ceftriaxone Sodium 50 ml @ 100 mls/hr Q24H IVPB Last administered on 11/19/18 04:23; Admin Dose 100 MLS/HR; Start 11/17/18 at 04:30 Carvedilol (Coreg) 6.25 mg BID PO Last administered on 11/19/18 08:35; Admin Dose 6.25 MG; Start 11/17/18 at 09:00 Spironolactone (Aldactone) 100 mg BID PO Last administered on 11/19/18 08:35; Admin Dose 100 MG; Start 11/17/18 at 09:00 Enalapril Maleate (Vasotec) 2.5 mg DAILY PO Last administered on 11/19/18 08:35; Admin Dose 2.5 MG; Start 11/17/18 at 09:00 Morphine Sulfate (morphine) 1 mg Q4H PRN IV PAIN LEVEL 4-6 Last administered on 11/19/18 06:23; Admin Dose 1 MG; Start 11/17/18 at 11:00 Albuterol (Proventil 0.083% (Neb)) 2.5 mg Q2H RESP THERAPY PRN HHN SHORTNESS OF BREATH Last administered on 11/18/18 20:58; Admin Dose 2.5 MG; Start 11/17/18 at 11:00 Hydromorphone HCl (Dilaudid) 0.5 mg Q4H PRN IV SEVERE PAIN LEVEL 7-10 Last administered on 11/19/18 13:23; Admin Dose 0.5 MG; Start 11/17/18 at 11:00 Ascorbic Acid (Vitamin C) 500 mg BID PO Last administered on 11/19/18 08:33; Admin Dose 500 MG; Start 11/17/18 at 21:00; Stop 11/27/18 at 20:59 Zinc Sulfate (Zinc Sulfate) 220 mg DAILY PO Last administered on 11/19/18 08:33; Admin Dose 220 MG; Start 11/18/18 at 09:00; Stop 11/28/18 at 08:59 Furosemide (Lasix) 40 mg DAILY IV Last administered on 11/19/18 08:36; Admin Do se 40 MG; Start 11/19/18 at 09:00 Reginald Muñoz DO Nov 19, 2018 16:42
[2018-11-19] MEDS ORDERED: FUROSEMIDE 20 MG INJ IV ONE (17:00)
[2018-11-19] MEDS: ALBUTEROL 0.083% (NEB) 2.5 MG/3 ML AMP HHN PRN (20:19)
[2018-11-20] VITALS (13 sets, daily range): BP systolic 106–116; BP diastolic 56–81; PULSE 78–105; RESP 18–20
[2018-11-20] MEDS: ALBUTEROL HFA 8 GM INHALER INH SCH ×4 (02:00→20:12)
[2018-11-20] MEDS: CEFTRIAXONE 1 GM/50 ML (PMX) 50 ML IVPB SCH (04:41)
[2018-11-20] MEDS: ENOXAPARIN 30 MG/0.3 ML SYG SC SCH (08:09)
[2018-11-20] MEDS: LISINOPRIL 5 MG TAB PO SCH (08:11)
[2018-11-20] MEDS: ZINC SULFATE 220 MG CAP PO SCH (08:11)
[2018-11-20] MEDS: SPIRONOLACTONE 50 MG TAB PO SCH ×2 (08:11→20:11)
[2018-11-20] MEDS: ASCORBIC ACID 500 MG TAB PO SCH ×2 (08:11→20:10)
[2018-11-20] MEDS: ASPIRIN (EC) 81 MG TAB PO SCH (08:11)
[2018-11-20] MEDS: FUROSEMIDE 40 MG INJ IV SCH (08:12)
--- NOTE | 2018-11-20 08:39 | PN ---
Date/Time of Note Date/Time of Note DATE: 11/20/18 TIME: 08:39 Assessment/Plan VTE Prophylaxis Risk score (from [facility])>0 risk: 3 SCD applied (from [facility]): No SCD contraindicated: low risk/ambulating Pharmacological prophylaxis: NA/contraindicated Pharm contraindication: low risk/ambulating Lines/Catheters [facility] C[facility] Type [facility]from [facility] Saline Lock Urinary Cath still in place: No Assessment/Plan Assessment/Plan 1. Right pleural effusion - Discussed thoracentesis and patient agreeable - IR consultation placed - Seen on CXR 2. Acute on chronic combined systolic/diastolic CHF exacerbation- improving - Cardiology consultation appreciated. Given an extra dose of Lasix yesterday. Continue monitoring I/O and daily weights - Discussed with patient need for compliance with water restriction - EF from last admission noted to be 15-20% - BNP noted - CXR seen with mild pulmonary congestion - monitor I/O and daily weights 2. Scrotal swelling- improving - etiology CHF - Urology consultation appreciated 3. Liver cirrhosis secondary to hep C - continue current diuretics 4. COPD - nebs PRN - not in exacerbation 5. Illicit drug use - Ativan for withdrawal symptoms, social work consult. 6. Community acquired pneumonia - seen on CXR - continue Rocephin 7. Disposition - Thoracentesis ordered for today secondary to moderate R pleural effusion - requested for patients O2 saturation to be monitored on RA during ambulation Result Diagram: 11/20/18 0610 11/20/18 0610 Results 24hrs Laboratory Tests Test 11/20/18 06:10 White Blood Count 8.9 Red Blood Count 6.12 H Hemoglobin 14.6 Hematocrit 48.6 Mean Corpuscular Volume 79.4 L Mean Corpuscular Hemoglobin 23.9 L Mean Corpuscular Hemoglobin Concent 30.0 L Red Cell Distribution Width 20.8 H Platelet Count 308 Mean Platelet Volume 9.6 Immature Granulocytes % 0.600 H Neutrophils % 72.3 Lymphocytes % 14.9 L Monocytes % 10.2 Eosinophils % 1.7 Basophils % 0.3 Nucleated Red Blood Cells % 0.0 Immature Granulocytes # 0.050 H Neutrophils # 6.4 Lymphocytes # 1.3 Monocytes # 0.9 Eosinophils # 0.2 Basophils # 0.0 Nucleated Red Blood Cells # 0.0 Sodium Level 138 Potassium Level 3.9 Chloride Level 95 L Carbon Dioxide Level 33 H Anion Gap 10 Blood Urea Nitrogen 28 H Creatinine 0.82 Est Glomerular Filtrat Rate mL/min > 60 Glucose Level 109 Calcium Level 9.1 Magnesium Level 1.8 Total Bilirubin 1.2 Direct Bilirubin 0.00 Indirect Bilirubin 1.2 H Aspartate Amino Transf (AST/SGOT) 30 Alanine Aminotransferase (ALT/SGPT) 37 Alkaline Phosphatase 117 Total Protein 6.1 Albumin 3.3 Globulin 2.80 Albumin/Globulin Ratio 1.17 Subjective 24 Hr Interval Summary Free Text/Dictation Patient still with shortness of breath with exertion. Requesting to go home since has "stuff to do." Discussed getting thoracentesis and possible d/c home later today or tomorrow Exam/Review of Systems Exam Vitals Vital Signs Date Temp Pulse Resp B/P (MAP) Pulse Ox O2 O2 Flow FiO2 Time Delivery Rate 11/20/18 105 08:17 11/20/18 98.3 18 114/77 98 07:53 (89) 11/20/18 Nasal 3.0 07:42 Cannula 11/18/18 21 02:58 Intake and Output 11/19/18 11/19/18 11/20/18 1515:00 23:00 07:00 IntakeIntake Total 710 ml 300 ml OutputOutput Total 2750 ml BalanceBalance -2040 ml 300 ml Exam General: sitting up in bed. no acute distress Chest: Nontender Lungs:Diminished on right lower lobe, no wheezing appreciated Heart: Normal S1-S2, Regular rhythm and rate. no murmurs Abdomen: Soft , nontender, protuberant , no fluid shift appreciated, bowel sounds are present. No guarding no rebound tenderness Extremities: trace edema of the bilateral lower extremities Results Results 24hrs Laboratory Tests Test 11/20/18 06:10 White Blood Count 8.9 Red Blood Count 6.12 H Hemoglobin 14.6 Hematocrit 48.6 Mean Corpuscular Volume 79.4 L Mean Corpuscular Hemoglobin 23.9 L Mean Corpuscular Hemoglobin Concent 30.0 L Red Cell Distribution Width 20.8 H Platelet Count 308 Mean Platelet Volume 9.6 Immature Granulocytes % 0.600 H Neutrophils % 72.3 Lymphocytes % 14.9 L Monocytes % 10.2 Eosinophils % 1.7 Basophils % 0.3 Nucleated Red Blood Cells % 0.0 Immature Granulocytes # 0.050 H Neutrophils # 6.4 Lymphocytes # 1.3 Monocytes # 0.9 Eosinophils # 0.2 Basophils # 0.0 Nucleated Red Blood Cells # 0.0 Sodium Level 138 Potassium Level 3.9 Chloride Level 95 L Carbon Dioxide Level 33 H Anion Gap 10 Blood Urea Nitrogen 28 H Creatinine 0.82 Est Glomerular Filtrat Rate mL/min > 60 Glucose Level 109 Calcium Level 9.1 Magnesium Level 1.8 Total Bilirubin 1.2 Direct Bilirubin 0.00 Indirect Bilirubin 1.2 H Aspartate Amino Transf (AST/SGOT) 30 Alanine Aminotransferase (ALT/SGPT) 37 Alkaline Phosphatase 117 Total Protein 6.1 Albumin 3.3 Globulin 2.80 Albumin/Globulin Ratio 1.17 Medications Medication Current Medications IV Flush (NS 3 ml) 3 ml PER PROTOCOL IV ; Start 11/16/18 at 23:00 Ondansetron HCl (Zofran Inj) 4 mg Q6H PRN IV NAUSEA/VOMITING; Start 11/16/18 at 23:00 Acetaminophen (Tylenol Tab) 650 mg Q6H PRN PO .PAIN 1-3 OR TEMP; Start 11/16/18 at 23:00 Enoxaparin Sodium (Lovenox) 30 mg DAILY SC Last administered on 11/20/18 08:09; Admin Dose 30 MG; Start 11/17/18 at 09:00 Albuterol (Ventolin Hfa) 2 puff Q6H RESP THERAPY INH Last administered on 11/20/18 08:12; Admin Dose 2 PUFF; Start 11/17/18 at 00:00 Aspirin (Halfprin) 81 mg DAILY PO Last administered on 11/20/18 08:11; Admin Dose 81 MG; Start 11/17/18 at 09:00 Lorazepam (Ativan) 1 mg Q4H PRN IV CONTROL WITHDRAWAL SYMPTOMS Last adminis tered on 11/17/18 18:57; Admin Dose 1 MG; Start 11/16/18 at 23:30 Ceftriaxone Sodium 50 ml @ 100 mls/hr Q24H IVPB Last administered on 11/20/18 04:41; Admin Dose 100 MLS/HR; Start 11/17/18 at 04:30 Carvedilol (Coreg) 6.25 mg BID PO Last administered on 11/20/18 08:10; Admin Dose 6.25 MG; Start 11/17/18 at 09:00 Spironolactone (Aldactone) 100 mg BID PO Last administered on 11/20/18 08:11; Admin Dose 100 MG; Start 11/17/18 at 09:00 Morphine Sulfate (morphine) 1 mg Q4H PRN IV PAIN LEVEL 4-6 Last administered on 11/19/18 06:23; Admin Dose 1 MG; Start 11/17/18 at 11:00 Albuterol (Proventil 0.083% (Neb)) 2.5 mg Q2H RESP THERAPY PRN HHN SHORTNESS OF BREATH Last administered on 11/19/18 20:19; Admin Dose 2.5 MG; Start 11/17/18 at 11:00 Hydromorphone HCl (Dilaudid) 0.5 mg Q4H PRN IV SEVERE PAIN LEVEL 7-10 Last administered on 11/19/18 20:35; Admin Dose 0.5 MG; Start 11/17/18 at 11:00 Ascorbic Acid (Vitamin C) 500 mg BID PO Last administered on 11/20/18 08:11; Admin Dose 500 MG; Start 11/17/18 at 21:00; Stop 11/27/18 at 20:59 Zinc Sulfate (Zinc Sulfate) 220 mg DAILY PO Last administered on 11/20/18 08:11; Admin Dose 220 MG; Start 11/18/18 at 09:00; Stop 11/28/18 at 08:59 Furosemide (Lasix) 40 mg DAILY IV Last administered on 11/20/18 08:12; Admin Dose 40 MG; Start 11/19/18 at 09:00 Lisinopril (Zestril) 5 mg DAILY PO Last administered on 11/20/18 08:11; Admin Dose 5 MG; Start 11/20/18 at 09:00 DAMEON MADRIGAL MD Nov 20, 2018 08:39
[2018-11-20] MEDS ORDERED: MAGNESIUM SULFATE 2 GM/50 ML 50 ML IVPB ONE (12:30)
[2018-11-20] MEDS ORDERED: POTASSIUM CHLORIDE (SR) 10 MEQ TAB PO ONE (12:30)
--- NOTE | 2018-11-20 12:32 | CONS ---
Assessment/Plan Cardiology NYHA: III Heart Failure Type: Acute on Chronic Heart Failure Type: Systolic Assessment/Plan Hospital Course (Demo Recall) Acute decompensated systolic congestive heart failure Cardiomyopathy with left ventricular ejection fraction 50-20% Recent methamphetamine use MARIBEL -Patient presents with decompensated congestive heart failure likely secondary to poor compliance and illicit drug use. Does have a known history of methamphetamine use with recent admission in the past 2 weeks. He did leave AGAINST MEDICAL ADVICE the last admission -Patient plan for thoracentesis today -Extra dose of Lasix this afternoon, if continues to improve, plan to change to p.o. diuretics in the next 1-2 days -Continue beta-blockers heart rate and blood pressure permits, continue AKANKSHA inhibitor -Maintain potassium above 4.0 and magnesium above 2.0 Consultation Date/Type/Reason Admit Date/Time Nov 16, 2018 at 21:33 Initial Consult Date 11/17/18 Type of Consult Cardiology Requesting Provider: DAMEON MADRIGAL MD Date/Time of Note DATE: 11/20/18 TIME: 12:30 24 HR Interval Summary Free Text/Dictation Shortness of breath continues to improve. Denies palpitations or chest pain Exam/Review of Systems Vital Signs Vitals Vital Signs Date Temp Pulse Resp B/P (MAP) Pulse Ox O2 O2 Flow FiO2 Time Delivery Rate 11/20/18 97 12:18 11/20/18 20 106/68 100 Nasal 4.0 12:00 (81) Cannula 11/20/18 98.3 11:38 11/18/18 21 02:58 Intake and Output 11/19/18 11/19/18 11/20/18 1414:59 22:59 06:59 IntakeIntake Total 710 ml 300 ml OutputOutput Total 2750 ml BalanceBalance -2040 ml 300 ml Exam Constitutional: alert, oriented (No apparent distress) Respiratory: other (Coarse breath sounds bilaterally, decreased at the right base) Cardiovascular: regular rate and rhythm (S1-S2 heard) Gastrointestinal: soft, non-tender, bowel sounds Extremities: edema Labs Result Diagram: 11/20/18 0610 11/20/18 0610 Results 24hrs Laboratory Tests Test 11/20/18 06:10 11/20/18 10:17 White Blood Count 8.9 Red Blood Count 6.12 H Hemoglobin 14.6 Hematocrit 48.6 Mean Corpuscular Volume 79.4 L Mean Corpuscular Hemoglobin 23.9 L Mean Corpuscular Hemoglobin Concent 30.0 L Red Cell Distribution Width 20.8 H Platelet Count 308 Mean Platelet Volume 9.6 Immature Granulocytes % 0.600 H Neutrophils % 72.3 Lymphocytes % 14.9 L Monocytes % 10.2 Eosinophils % 1.7 Basophils % 0.3 Nucleated Red Blood Cells % 0.0 Immature Granulocytes # 0.050 H Neutrophils # 6.4 Lymphocytes # 1.3 Monocytes # 0.9 Eosinophils # 0.2 Basophils # 0.0 Nucleated Red Blood Cells # 0.0 Sodium Level 138 Potassium Level 3.9 Chloride Level 95 L Carbon Dioxide Level 33 H Anion Gap 10 Blood Urea Nitrogen 28 H Creatinine 0.82 Est Glomerular Filtrat Rate mL/min > 60 Glucose Level 109 Calcium Level 9.1 Magnesium Level 1.8 Total Bilirubin 1.2 Direct Bilirubin 0.00 Indirect Bilirubin 1.2 H Aspartate Amino Transf (AST/SGOT) 30 Alanine Aminotransferase (ALT/SGPT) 37 Alkaline Phosphatase 117 Total Protein 6.1 Albumin 3.3 Globulin 2.80 Albumin/Globulin Ratio 1.17 Prothrombin Time 15.6 H Prothrombin Time Ratio 1.2 INR International Normalized Ratio 1.23 Activated Partial Thromboplast Time 36.5 H Medications Medications Current Medications IV Flush (NS 3 ml) 3 ml PER PROTOCOL IV ; Start 11/16/18 at 23:00 Ondansetron HCl (Zofran Inj) 4 mg Q6H PRN IV NAUSEA/VOMITING; Start 11/16/18 at 23:00 Acetaminophen (Tylenol Tab) 650 mg Q6H PRN PO .PAIN 1-3 OR TEMP; Start 11/16/18 at 23:00 Enoxaparin Sodium (Lovenox) 30 mg DAILY SC Last administered on 11/20/18 08:09; Admin Dose 30 MG; Start 11/17/18 at 09:00 Albuterol (Ventolin Hfa) 2 puff Q6H RESP THERAPY INH Last administered on 11/20/18 08:12; Admin Dose 2 PUFF; Start 11/17/18 at 00:00 Aspirin (Halfprin) 81 mg DAILY PO Last administered on 11/20/18 08:11; Admin Dose 81 MG; Start 11/17/18 at 09:00 Lorazepam (Ativan) 1 mg Q4H PRN IV CONTROL WITHDRAWAL SYMPTOMS Last administered on 11/17/18 18:57; Admin Dose 1 MG; Start 11/16/18 at 23:30 Ceftriaxone Sodium 50 ml @ 100 mls/hr Q24H IVPB Last administered on 11/20/18 04:41; Admin Dose 100 MLS/HR; Start 11/17/18 at 04:30; Stop 11/24/18 at 04:29 Carvedilol (Coreg) 6.25 mg BID PO Last administered on 11/20/18 08:10; Admin Dose 6.25 MG; Start 11/17/18 at 09:00 Spironolactone (Aldactone) 100 mg BID PO Last administered on 11/20/18 08:11; Admin Dose 100 MG; Start 11/17/18 at 09:00 Morphine Sulfate (morphine) 1 mg Q4H PRN IV PAIN LEVEL 4-6 Last administered on 11/19/18 06:23; Admin Dose 1 MG; Start 11/17/18 at 11:00 Albuterol (Proventil 0.083% (Neb)) 2.5 mg Q2H RESP THERAPY PRN HHN SHORTNESS OF BREATH Last administered on 11/19/18 20:19; Admin Dose 2.5 MG; Start 11/17/18 at 11:00 Hydromorphone HCl (Dilaudid) 0.5 mg Q4H PRN IV SEVERE PAIN LEVEL 7-10 Last administered on 11/19/18 20:35; Admin Dose 0.5 MG; Start 11/17/18 at 11:00 Ascorbic Acid (Vitamin C) 500 mg BID PO Last administered on 11/20/18 08:11; Admin Dose 500 MG; Start 11/17/18 at 21:00; Stop 11/27/18 at 20:59 Zinc Sulfate (Zinc Sulfate) 220 mg DAILY PO Last administered on 11/20/18 08:11; Admin Dose 220 MG; Start 11/18/18 at 09:00; Stop 11/28/18 at 08:59 Furosemide (Lasix) 40 mg DAILY IV Last administered on 11/20/18 08:12; Admin Dose 40 MG; Start 11/19/18 at 09:00 Lisinopril (Zestril) 5 mg DAILY PO Last administered on 11/20/18 08:11; Admin Dose 5 MG; Start 4/5/19 at 09:00 Reginald Muñoz DO Nov 20, 2018 12:32
[2018-11-20] MEDS ORDERED: LIDOCAINE 1% (MPF) 5 ML VIAL ONE (12:35)
[2018-11-20] MEDS: HYDROmorphONE 0.5 MG/0.5 ML SYG IV PRN ×2 (14:31→20:12)
[2018-11-20] MEDS ORDERED: FUROSEMIDE 20 MG INJ IV ONE (15:00)
[2018-11-20] MEDS ORDERED: morphine LIQ (10 MG/5 ML) CUP PO PRN (17:30)
[2018-11-21] VITALS (7 sets, daily range): BP systolic 106–127; BP diastolic 66–75; PULSE 62–112; RESP 18–19
[2018-11-21] MEDS: HYDROmorphONE 0.5 MG/0.5 ML SYG IV PRN ×2 (00:44→08:19)
[2018-11-21] MEDS: ALBUTEROL HFA 8 GM INHALER INH SCH ×2 (02:58→08:00)
[2018-11-21] MEDS: LORAZEPAM 2 MG INJ IV PRN (03:03)
[2018-11-21] MEDS: CEFTRIAXONE 1 GM/50 ML (PMX) 50 ML IVPB SCH (05:24)
[2018-11-21] MEDS: LISINOPRIL 5 MG TAB PO SCH (08:17)
[2018-11-21] MEDS: SPIRONOLACTONE 50 MG TAB PO SCH (08:18)
[2018-11-21] MEDS: FUROSEMIDE 40 MG INJ IV SCH (08:18)
[2018-11-21] MEDS: ASCORBIC ACID 500 MG TAB PO SCH (08:18)
[2018-11-21] MEDS: ZINC SULFATE 220 MG CAP PO SCH (08:19)
[2018-11-21] MEDS: ASPIRIN (EC) 81 MG TAB PO SCH (08:19)
[2018-11-21] MEDS: ENOXAPARIN 30 MG/0.3 ML SYG SC SCH (08:31)
--- NOTE | 2018-11-21 09:18 | PN ---
Date/Time of Note Date/Time of Note DATE: 11/21/18 TIME: 09:18 Assessment/Plan VTE Prophylaxis Risk score (from Ns)>0 risk: 5 SCD applied (from Ns): No SCD contraindicated: low risk/ambulating Pharmacological prophylaxis: NA/contraindicated Pharm contraindication: low risk/ambulating Lines/Catheters IV [facility]from [facility] Saline Lock Urinary Cath still in place: No Assessment/Plan Assessment/Plan 1. Right pleural effusion s/p thoracentesis - Patient doing well on room air and not desaturating with ambulation - Appreciate IR intervention 2. 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 Will transition to PO Lasix daily. Discussed daily weights and if increasing by 5 lbs advised to take an extra dose - Discussed with patient need for compliance with water restriction - EF from last admission noted to be 15-20% - BNP noted - CXR seen with mild pulmonary congestion - monitor I/O and daily weights 2. Scrotal swelling- resolved - etiology CHF - Urology consultation appreciated 3. Liver cirrhosis secondary to hep C - continue current diuretics 4. COPD - nebs PRN - not in exacerbation 5. Illicit drug use - Ativan for withdrawal symptoms, social work consult appreciated 6. Community acquired pneumonia - seen on CXR - completed course of antibiotics 7. Disposition - Medically stable for discharge home Result Diagram: 11/20/18 0610 11/21/18 0655 Results 24hrs Laboratory Tests Test 11/20/18 10:17 11/21/18 06:55 Prothrombin Time 15.6 H Prothrombin Time Ratio 1.2 INR International Normalized Ratio 1.23 Activated Partial Thromboplast Time 36.5 H Sodium Level 137 Potassium Level 4.3 Chloride Level 95 L Carbon Dioxide Level 33 H Anion Gap 9 Blood Urea Nitrogen 25 H Creatinine 1.02 Est Glomerular Filtrat Rate mL/min > 60 Glucose Level 92 Calcium Level 9.8 Magnesium Level 2.2 Total Bilirubin 1.6 H Direct Bilirubin 0.00 Indirect Bilirubin 1.6 H Aspartate Amino Transf (AST/SGOT) 47 #H Alanine Aminotransferase (ALT/SGPT) 37 Alkaline Phosphatase 124 H Total Protein 6.9 Albumin 3.8 Globulin 3.10 Albumin/Globulin Ratio 1.22 Subjective 24 Hr Interval Summary Free Text/Dictation Patient states hes feeling significantly better since thoracentesis yesterday. No acute overnight events. Exam/Review of Systems Exam Vitals Vital Signs Date Temp Pulse Resp B/P (MAP) Pulse Ox O2 O2 Flow FiO2 Time Delivery Rate 11/21/18 101 08:05 11/21/18 Nasal 3.0 07:40 Cannula 11/21/18 97.7 18 119/75 98 07:12 (90) 11/18/18 21 02:58 Intake and Output 11/20/18 11/20/18 11/21/18 1515:00 23:00 07:00 IntakeIntake Total 1200 ml OutputOutput Total 1650 ml 675 ml BalanceBalance -1650 ml 525 ml Exam General: sitting up in bed. no acute distress Chest: Nontender Lungs: Clear bilaterally, diminished, no wheezing appreciated Heart: Normal S1-S2, Regular rhythm and rate. no murmurs Abdomen: Soft , nontender, protuberant , no fluid shift appreciated, bowel sounds are present. No guarding no rebound tenderness Extremities: no edema, cyanosis, or clubbing Results Results 24hrs Laboratory Tests Test 11/20/18 10:17 11/21/18 06:55 Prothrombin Time 15.6 H Prothrombin Time Ratio 1.2 INR International Normalized Ratio 1.23 Activated Partial Thromboplast Time 36.5 H Sodium Level 137 Potassium Level 4.3 Chloride Level 95 L Carbon Dioxide Level 33 H Anion Gap 9 Blood Urea Nitrogen 25 H Creatinine 1.02 Est Glomerular Filtrat Rate mL/min > 60 Glucose Level 92 Calcium Level 9.8 Magnesium Level 2.2 Total Bilirubin 1.6 H Direct Bilirubin 0.00 Indirect Bilirubin 1.6 H Aspartate Amino Transf (AST/SGOT) 47 #H Alanine Aminotransferase (ALT/SGPT) 37 Alkaline Phosphatase 124 H Total Protein 6.9 Albumin 3.8 Globulin 3.10 Albumin/Globulin Ratio 1.22 Medications Medication Current Medications IV Flush (NS 3 ml) 3 ml PER PROTOCOL IV ; Start 11/16/18 at 23:00 Ondansetron HCl (Zofran Inj) 4 mg Q6H PRN IV NAUSEA/VOMITING; Start 11/16/18 at 23:00 Acetaminophen (Tylenol Tab) 650 mg Q6H PRN PO .PAIN 1-3 OR TEMP; Start 11/16/18 at 23:00 Enoxaparin Sodium (Lovenox) 30 mg DAILY SC Last administered on 11/21/18at 08:31; Admin Dose 30 MG; Start 11/17/18 at 09:00 Albuterol (Ventolin Hfa) 2 puff Q6H RESP THERAPY INH Last administered on 11/21/18 02:58; Admin Dose 2 PUFF; Start 11/17/18 at 00:00 Aspirin (Halfprin) 81 mg DAILY PO Last administered on 11/21/18 08:19; Admin Dose 81 MG; Start 11/17/18 at 09:00 Lorazepam (Ativan) 1 mg Q4H PRN IV CONTROL WITHDRAWAL SYMPTOMS Last administered on 11/21/18 03:03; Admin Dose 1 MG; Start 11/16/18 at 23:30 Ceftriaxone Sodium 50 ml @ 100 mls/hr Q24H IVPB Last administered on 11/21/18 05:24; Admin Dose 100 MLS/HR; Start 11/17/18 at 04:30; Stop 11/24/18 at 04:29 Carvedilol (Coreg) 6.25 mg BID PO Last administered on 11/21/18 08:17; Admin Dose 6.25 MG; Start 11/17/18 at 09:00 Spironolactone (Aldactone) 100 mg BID PO Last administered on 11/21/18 08:18; Admin Dose 100 MG; Start 11/17/18 at 09:00 Albuterol (Proventil 0.083% (Neb)) 2.5 mg Q2H RESP THERAPY PRN HHN SHORTNESS OF BREATH Last administered on 11/19/18 20:19; Admin Dose 2.5 MG; Start 11/17/18 at 11:00 Hydromorphone HCl (Dilaudid) 0.5 mg Q4H PRN IV SEVERE PAIN LEVEL 7-10 Last administered on 11/21/18 08:19; Admin Dose 0.5 MG; Start 11/17/18 at 11:00 Ascorbic Acid (Vitamin C) 500 mg BID PO Last administered on 11/21/18 08:18; Admin Dose 500 MG; Start 11/17/18 at 21:00; Stop 11/27/18 at 20:59 Zinc Sulfate (Zinc Sulfate) 220 mg DAILY PO Last administered on 11/21/18 08:19; Admin Dose 220 MG; Start 11/18/18 at 09:00; Stop 11/28/18 at 08:59 Furosemide (Lasix) 40 mg DAILY IV Last administered on 11/21/18at 08:18; Admin Dose 40 MG; Start 11/19/18 at 09:00 Lisinopril (Zestril) 5 mg DAILY PO Last administered on 11/21/18at 08:17; Admin Dose 5 MG; Start 11/20/18 at 09:00 Morphine Sulfate (morphine) 3 mg Q4H PRN PO PAIN LEVEL 4-6; Start 11/20/18 at 17:30 DAMEON MADRIGAL MD Nov 21, 2018 09:18
--- NOTE | 2018-11-21 11:16 | CONS ---
Assessment/Plan Cardiology NYHA: III Heart Failure Type: Acute on Chronic Heart Failure Type: Systolic Assessment/Plan Assessment/Plan (Daily) Assessment: Acute decompensated systolic congestive heart failure Cardiomyopathy with left ventricular ejection fraction 50-20% Recent methamphetamine use MARIBEL Plan: continue beta karen continue AKANKSHA continue spironolactone ok to change furosemide to po Consultation Date/Type/Reason Admit Date/Time Nov 16, 2018 at 21:33 Initial Consult Date 11/17/18 Type of Consult Cardiology Requesting Provider: DAMEON MADRIGAL MD Date/Time of Note DATE: 11/21/18 TIME: 11:14 24 HR Interval Summary Free Text/Dictation no chest pain, no sob, no palpitations Detailed Summary ENT: no complaints Respiratory: no complaints Cardiovascular: no complaints Gastrointestinal: no complaints Musculoskeletal: no complaints Skin: no complaints Neurologic: no complaints Exam/Review of Systems Vital Signs Vitals Vital Signs Date Temp Pulse Resp B/P (MAP) Pulse Ox O2 O2 Flow FiO2 Time Delivery Rate 11/21/18 101 08:05 11/21/18 Nasal 3.0 07:40 Cannula 11/21/18 97.7 18 119/75 98 07:12 (90) 11/18/18 21 02:58 Intake and Output 11/20/18 11/20/18 11/21/18 1515:00 23:00 07:00 IntakeIntake Total 1200 ml OutputOutput Total 1650 ml 675 ml BalanceBalance -1650 ml 525 ml Exam Constitutional: alert, oriented Head: normocephalic, atraumatic Neck: supple Respiratory: clear to auscultation Cardiovascular: regular rate and rhythm Musculoskeletal: nl extremities to inspection Labs Result Diagram: 11/20/18 0610 11/21/18 0655 Results 24hrs Laboratory Tests Test 11/21/18 06:55 Sodium Level 137 Potassium Level 4.3 Chloride Level 95 L Carbon Dioxide Level 33 H Anion Gap 9 Blood Urea Nitrogen 25 H Creatinine 1.02 Est Glomerular Filtrat Rate mL/min > 60 Glucose Level 92 Calcium Level 9.8 Magnesium Level 2.2 Total Bilirubin 1.6 H Direct Bilirubin 0.00 Indirect Bilirubin 1.6 H Aspartate Amino Transf (AST/SGOT) 47 #H Alanine Aminotransferase (ALT/SGPT) 37 Alkaline Phosphatase 124 H Total Protein 6.9 Albumin 3.8 Globulin 3.10 Albumin/Globulin Ratio 1.22 Medications Medications Current Medications IV Flush (NS 3 ml) 3 ml PER PROTOCOL IV ; Start 11/16/18 at 23:00 Ondansetron HCl (Zofran Inj) 4 mg Q6H PRN IV NAUSEA/VOMITING; Start 11/16/18 at 23:00 Acetaminophen (Tylenol Tab) 650 mg Q6H PRN PO .PAIN 1-3 OR TEMP; Start 11/16/18 at 23:00 Enoxaparin Sodium (Lovenox) 30 mg DAILY SC Last administered on 11/21/18 08:31; Admin Dose 30 MG; Start 11/17/18 at 09:00 Albuterol (Ventolin Hfa) 2 puff Q6H RESP THERAPY INH Last administered on 11/21/18 08:00; Admin Dose 2 PUFF; Start 11/17/18 at 00:00 Aspirin (Halfprin) 81 mg DAILY PO Last administered on 11/21/18 08:19; Admin Dose 81 MG; Start 11/17/18 at 09:00 Lorazepam (Ativan) 1 mg Q4H PRN IV CONTROL WITHDRAWAL SYMPTOMS Last administered on 11/21/18 03:03; Admin Dose 1 MG; Start 11/16/18 at 23:30 Ceftriaxone Sodium 50 ml @ 100 mls/hr Q24H IVPB Last administered on 11/21/18 05:24; Admin Dose 100 MLS/HR; Start 11/17/18 at 04:30; Stop 11/24/18 at 04:29 Carvedilol (Coreg) 6.25 mg BID PO Last administered on 11/21/18 08:17; Admin Dose 6.25 MG; Start 11/17/18 at 09:00 Spironolactone (Aldactone) 100 mg BID PO Last administered on 11/21/18 08:18; Admin Dose 100 MG; Start 11/17/18 at 09:00 Albuterol (Proventil 0.083% (Neb)) 2.5 mg Q2H RESP THERAPY PRN HHN SHORTNESS OF BREATH Last administered on 11/19/18 20:19; Admin Dose 2.5 MG; Start 11/17/18 at 11:00 Hydromorphone HCl (Dilaudid) 0.5 mg Q4H PRN IV SEVERE PAIN LEVEL 7-10 Last administered on 4/6/19at 08:19; Admin Dose 0.5 MG; Start 11/17/18 at 11:00 Ascorbic Acid (Vitamin C) 500 mg BID PO Last administered on 11/21/18 08:18; Admin Dose 500 MG; Start 11/17/18 at 21:00; Stop 11/27/18 at 20:59 Zinc Sulfate (Zinc Sulfate) 220 mg DAILY PO Last administered on 11/21/18 08:19; Admin Dose 220 MG; Start 11/18/18 at 09:00; Stop 11/28/18 at 08:59 Furosemide (Lasix) 40 mg DAILY IV Last administered on 11/21/18at 08:18; Admin Dose 40 MG; Start 11/19/18 at 09:00 Lisinopril (Zestril) 5 mg DAILY PO Last administered on 11/21/18at 08:17; Admin Dose 5 MG; Start 11/20/18 at 09:00 Morphine Sulfate (morphine) 3 mg Q4H PRN PO PAIN LEVEL 4-6; Start 11/20/18 at 17:30 RINA DE LUNA MD Nov 21, 2018 11:16
[2018-11-21] MEDS ORDERED: FURO-109 PO (11:59)
[2018-11-21] MEDS ORDERED: LISI-313 PO (11:59)
--- NOTE | 2018-11-21 12:04 | PDOCDIS ---
Discharge Instructions DIAGNOSIS Discharge Diagnosis 1. Right pleural effusion s/p thoracentesis- resolved 2. Acute on chronic combined systolic/diastolic CHF exacerbation- stabilized 3. Liver cirrhosis secondary to hep C 4. COPD 5. h/o Illicit drug use 6. Community acquired pneumonia- resolved CONDITION [id number] Patient Condition: [id number] Stable HOME CARE INSTRUCTIONS: [id number] Diet Instructions: [id number] Fluid restriction 1L ACTIVITY: [id number] Activity Restrictions: [id number] No Restrictions FOLLOW UP/APPOINTMENTS Follow-up Plan 1. Follow up with your primary care physician in 1 week. If you do not already, you can make an appointment with Dr. Maco Mix 2. Follow up with Cardiology in 2-3 weeks for close monitoring of your heart failure 3. Take Lasix twice a day as prescribed. Weigh yourself daily and if you are up 2-5 lbs, take an extra dose of Lasix. You need to limit your fluid intake to present build up of fluid in your body. Do not drink more than 1200ml daily 4. Take All others medications as prescribed 5. If experiencing any concerning symptoms, please come back to emergency department 6. Your enalapril was replace by Lisinopril which you will need to take for blood pressure control. REFERRALS Other Referrals Reginald Muñoz DO Specialty: Cardiovascular Disease Office Address [facility] [address] [place] [address] Office Maco Mix MD Specialty: Internal Medicine Office Address [address] [place] [id number] Office DAMEON MADRIGAL MD Nov 21, 2018 12:04
--- NOTE | 2018-11-21 18:25 | DS ---
Date/Time of Note Date/Time of Note DATE: 11/21/18 TIME: 18:19 Discharge Summary Admission/Discharge Info Admit Date/Time Nov 16, 2018 at 21:33 Discharge Date/Time Nov 21, 2018 at 13:41 Discharge Diagnosis 1. Right pleural effusion s/p thoracentesis- resolved 2. Acute on chronic combined systolic/diastolic CHF exacerbation- stabilized 3. Liver cirrhosis secondary to hep C 4. COPD 5. h/o Illicit drug use 6. Community acquired pneumonia- resolved Patient Condition: Stable Consults Cardiology- Dr. Muñoz Procedures PROCEDURE: US guided right thoracentesis. CLINICAL INDICATION: Shortness of breath. Right pleural effusion. TECHNIQUE: Prior to the procedure, informed consent was obtained. The risks, benefits, and alternatives were explained to the patient or the patient's family, including but not limited to bleeding, infection, pain, visceral or vascular damage, shock, pneumothorax, chest tube placement, air embolism, and . The patient or the patient's family understood the risks and the alternatives and wished to proceed with the study. Informed written consent was obtained. A procedural pause was performed. The patient's name, date of , and procedure to be performed were verified. Ultrasound of the right hemithorax was performed in the axial and sagittal planes. A right pleural effusion is noted. Utilizing ultrasound guidance, optimal location for entry to the pleural cavity was ascertained. The overlying skin was prepped and draped in the usual sterile fashion. Approximately 10 ml of 1% Xylocaine was injected locally for pain control. Using ultrasound guidance, a 5-[place] Yueh catheter was introduced into the right pleural space without difficulty. Fluid was aspirated. COMPARISON: Chest x-ray dated 11/19/2018. FINDINGS: Initial ultrasound demonstrates fluid in the right pleural space. Approximately 1.65 liters of serous fluid was aspirated and discarded. Specimens: None. Blood loss: 1 ml. Complications: None. Director Of Online Education: None. Anesthesia: Local. Graft/Implant: None. IMPRESSION: 1. Satisfactory ultrasound-guided right thoracentesis. RPTAT: QQ .Sang Hernandez MD, MD Date Time Electronically viewed and signed by .Sang Hernandez MD, on 11/20/2018 13:38 Hx of Present Illness Chief complaint: Shortness of breath This is a 48-year-old suspected homeless male with a past medical history of COPD and CHF secondary to methamphetamine use who originally presented to [facility] with respiratory distress. Patient was noted to be 76% on 15 L nonrebreather mask. Patient was placed on BiPAP. Patient was given steroids along with nitroglycerin drip as well as Lasix for diuresis. Chest x- ray at the transfer facility also showed possible signs of pneumonia and patient was started on ceftriaxone and doxycycline. Patient was diuresed at [facility]. Patient was seen and examined by the process description writer and recommendation there was to continue Lasix, continue Coreg and patient was to be started on Entresto once patient's creatinine stabilized. Patient also was given IV steroids as well as breathing treatments. Of note patient left AMA, during previous admission Hospital Course Patient was admitted for CHF exacerbation and started on Lasix. Cardiology was consulted for diuretic management. Patient was also noted with pneumonia during last admission and was continued on treatment for HCAP. During last admission as well, patient was noted with epididymitis and was still experiencing swelling of scrotum. Urology was consulted for further recommendations and no further intervention was required. Patient was diuresing well during hospital stay but was still with acute shortness of breath. CXR revealed a moderate pleural effusion and patient agreed to thoracentesis. Patients respiratory status improved and was weaned off supplemental O2. Patient was changed to PO Lasix and discharged in good condition home. Home Meds Active Scripts Lisinopril* (Lisinopril*) 5 Mg Tablet, 5 MG PO DAILY for 30 Days, #30 TAB 1 Refill Prov:DAMEON MADRIGAL MD 11/21/18 Furosemide* (Lasix*) 40 Mg Tablet, 40 MG PO BID for 30 Days, #60 TAB 1 Refill Take with Aldactone at the same time, take evening dose of before 6 PM as to not effect your sleep Prov:DAMEON MADRIGAL MD 11/21/18 Carvedilol* (Carvedilol*) 6.25 Mg Tablet, 6.25 MG PO BID, #60 TAB Prov:JOSE BRADY MD 10/06/18 Spironolactone* (Aldactone*) 50 Mg Tablet, 100 MG PO BID, #60 TAB 1 Refill Prov:JOSE BRADY MD 10/06/18 Albuterol Sulfate* (Proair HFA*) 8.5 Gm Hfa.aer.ad, 2 PUFF INH Q6 for SOB, #1 INHALER Prov:JOSE BRADY MD 10/06/18 Reported Medications Aspirin Ec (Aspir 81) 81 Mg Tablet.dr, 81 MG PO DAILY, #30 TAB 11/03/18 Discontinued Scripts Enalapril Maleate* (Enalapril Maleate*) 2.5 Mg Tablet, 2.5 MG PO DAILY, #60 TAB 0 Refills Prov:JSOE BRADY MD 10/06/18 Follow-up Plan 1. Follow up with your primary care physician in 1 week. If you do not already, you can make an appointment with Dr. Maco Mix 2. Follow up with Cardiology in 2-3 weeks for close monitoring of your heart failure 3. Take Lasix twice a day as prescribed. Weigh yourself daily and if you are up 2-5 lbs, take an extra dose of Lasix. You need to limit your fluid intake to present build up of fluid in your body. Do not drink more than 1200ml daily 4. Take All others medications as prescribed 5. If experiencing any concerning symptoms, please come back to emergency department 6. Your enalapril was replace by Lisinopril which you will need to take for blood pressure control. Primary Care Provider Care Physician No Primary Time spent on discharge: > 30 minutes Pending Labs Laboratory Tests Test 11/21/18 06:55 Sodium Level 137 mmol/L (135-144) Potassium Level 4.3 mmol/L (3.5-5.1) Chloride Level 95 mmol/L (97-110) Carbon Dioxide Level 33 mmol/L (21-31) Anion Gap 9 (5-13) Blood Urea Nitrogen 25 mg/dl (7-20) Creatinine 1.02 mg/dl (0.61-1.24) Est Glomerular Filtrat Rate mL/min > 60 mL/min (>60) Glucose Level 92 mg/dl (70-220) Calcium Level 9.8 mg/dl (8.4-10.2) Magnesium Level 2.2 mg/dl (1.7-2.5) Total Bilirubin 1.6 mg/dl (0.2-1.3) Direct Bilirubin 0.00 mg/dl (0.00-0.20) Indirect Bilirubin 1.6 mg/dl (0-1.1) Aspartate Amino Transf (AST/SGOT) 47 IU/L (15-46) Alanine Aminotransferase (ALT/SGPT) 37 IU/L (13-69) Alkaline Phosphatase 124 IU/L (42-121) Total Protein 6.9 g/dl (6.1-8.1) Albumin 3.8 g/dl (3.3-4.9) Globulin 3.10 g/dl (1.3-3.2) Albumin/Globulin Ratio 1.22 DAMEON MADRIGAL MD Nov 21, 2018 18:25
== END 2018-11-21 13:41 | disposition home or self-care (01) | DRG 291 ==
LOC: TEL 21:33
PROVIDERS: ADMIT Internal Medicine; ATTEND Internal Medicine
PROC: 0W993ZZ Drainage of Right Pleural Cavity, Percutaneous Approach (ICD-10-PCS; principal; 2018-11-20)
DX: I11.0 Hypertensive heart disease with heart failure (principal); J18.9 Pneumonia, unspecified organism; N17.9 Acute kidney failure, unspecified; J90 Pleural effusion, not elsewhere classified; J44.0 Chronic obstructive pulmonary disease with (acute) lower respiratory infection; I50.43 Acute on chronic combined systolic (congestive) and diastolic (congestive) heart failure; K74.69 Other cirrhosis of liver; B19.20 Unspecified viral hepatitis C without hepatic coma; Z91.14 Patient's other noncompliance with medication regimen; F15.90 Other stimulant use, unspecified, uncomplicated; Z72.0 Tobacco use; N45.1 Epididymitis; I86.1 Scrotal varices; N49.2 Inflammatory disorders of scrotum
CPT/HCPCS: 71045; 76942; 80053; 80307; 81003; 83036; 83735; 83880; 84443; 85025; 85610; 85651; 85730; 86140; 87081; 94640; 94664; 97116; 97162; 97165; 97530; J0696; J1170; J1650; J1940; J2060; J2270; J3475; J7050

== ENCOUNTER 2019-01-04 18:32 | Inpatient (IN) | payer OTHER ==
[~2019-01-04] VITALS: Ht 180.3 cm; Wt 106.1 kg
[~2019-01-04 18:32] MED LIST changes: +APIX5TAB PO; -ENAL2.5T PO; +HYDR-3609 PO; -SPIR50TA PO
[2019-01-05] VITALS (7 sets, daily range): BP systolic 106–119; BP diastolic 56–76; PULSE 70–105; RESP 18–20; Ht 180.3 cm; Wt 106.1 kg
[2019-01-05] MEDS: HYDROCODONE/APAP (5/325) TAB PO PRN ×2 (00:24→06:14)
[2019-01-05] MEDS ORDERED: HYDROCODONE/APAP (5/325) TAB PO PRN (00:30)
[2019-01-05] MEDS ORDERED: NITROGLYCERIN (SL) 0.4 MG TAB SL PRN (00:30)
[2019-01-05] MEDS ORDERED: NACL 0.9% 3 ML SYG IV SCH (00:30)
[2019-01-05] MEDS ORDERED: HYDROCODONE/APAP (10/325) TAB PO PRN (00:30)
[2019-01-05] MEDS ORDERED: ONDANSETRON 4 MG INJ IV PRN (00:30)
[2019-01-05] MEDS ORDERED: ACETAMINOPHEN 325 MG TAB PO PRN (00:30)
[2019-01-05] MEDS ORDERED: morphine 4 MG/ML VIAL IV ONE (01:30)
[2019-01-05] MEDS: ALBUTEROL HFA 8 GM INHALER INH SCH ×3 (03:17→12:53)
[2019-01-05] MEDS ORDERED: FUROSEMIDE 40 MG TAB PO SCH (06:00)
[2019-01-05] MEDS: ALBUTEROL/IPRATROPIUM (NEB) 3 ML AMP HHN PRN ×2 (06:42→11:28)
--- NOTE | 2019-01-05 08:44 | HP ---
Date/Time of Note Date/Time of Note DATE: 01/05/19 TIME: 08:34 Assessment/Plan VTE Prophylaxis Pharmacological prophylaxis: heparin Lines/Catheters IV Catheter Type (from Nrsg): Saline Lock Assessment/Plan Assessment/Plan 1. Shortness of breath, secondary to acute on chronic CHF, pleural effusion -Patient with severe systolic dysfunction (EF 15 to 20%) -Status post thoracentesis 6 weeks ago with removal of 1.6 L of fluid -Continue Lasix -Ordered ultrasound-guided thoracentesis -Cardiology consult 2. Right thigh pain -Will rule out DVT 3. Recently diagnosed bilateral PE and left lower extremity DVT -Patient said he was unable to obtain Eliquis because of insurance reason and as a result he has not been taking any blood thinners -We will continue Eliquis while in-house -reimbursement manager consult placed 4. History of illicit drug use -Dr. Aly has been consulted for pain management 5. History of COPD: Supplemental oxygen, bronchodilators and steroid as needed Result Diagram: 01/05/19 0501/05/19 0520 Results 24hrs Laboratory Tests Test 01/05/19 05:20 White Blood Count 12.1 #H Red Blood Count 5.41 Hemoglobin 13.1 L Hematocrit 45.4 Mean Corpuscular Volume 83.9 Mean Corpuscular Hemoglobin 24.2 L Mean Corpuscular Hemoglobin Concent 28.9 L Red Cell Distribution Width 21.2 H Platelet Count 320 # Mean Platelet Volume 9.7 Immature Granulocytes % 0.500 H Neutrophils % 66.4 Lymphocytes % 14.7 L Monocytes % 14.2 H Eosinophils % 3.1 Basophils % 1.1 Nucleated Red Blood Cells % 0.0 Immature Granulocytes # 0.060 H Neutrophils # 8.0 H Lymphocytes # 1.8 Monocytes # 1.7 H Eosinophils # 0.4 Basophils # 0.1 Nucleated Red Blood Cells # 0.0 Sodium Level 136 Potassium Level 5.1 Chloride Level 97 Carbon Dioxide Level 29 Anion Gap 10 Blood Urea Nitrogen 37 H Creatinine 1.54 H Est Glomerular Filtrat Rate mL/min 48 L Glucose Level 95 Calcium Level 9.8 Magnesium Level 2.0 Total Bilirubin 1.6 H Direct Bilirubin 0.00 Indirect Bilirubin 1.6 H Aspartate Amino Transf (AST/SGOT) 20 Alanine Aminotransferase (ALT/SGPT) 25 Alkaline Phosphatase 116 Creatine Kinase 32 Creatine Kinase Index 7.8 Creatinine Kinase MB (Mass) 2.50 H Troponin I 0.024 Total Protein 6.5 Albumin 3.6 Globulin 2.90 Albumin/Globulin Ratio 1.24 HPI/ROS Admit Date/Time Admit Date/Time January 04, 2019 at 23:21 Hx of Present Illness Patient is a 48-year-old male he of CHF, cardiomyopathy with severe systolic dysfunction (EF 15 to 20%), bilateral PE, left lower extremity DVT, COPD, cirrhosis, hep C, illicit drug use. Patient initially presented to an outside hospital complaining of shortness of breath. He was transferred to [facility] for insurance reason. On my questioning, patient complains of shortness of breath saying that " I have fluid in my lung". He also complained of pain on the right medial thigh.He was admitted here about 6 weeks ago and at that time he underwent thoracentesis with removal of about 1.6 L of fluid. He was also diagnosed with PE and lower extremity DVT. Patient was discharged on Eliquis, but he said he was unable to get the medication because of insurance issue. He said he had been admitted at least 3 times to different hospitals since he was discharged from here 6 weeks ago. Patient also PMH/Family/Social Past Medical History Medical History: other (See HPI) Medications Current Medications IV Flush (NS 3 ml) 3 ml PER PROTOCOL IV ; Start 01/05/19 at 00:30 Ondansetron HCl (Zofran Inj) 4 mg Q6H PRN IV NAUSEA/VOMITING; Start 01/05/19 at 00:30 Nitroglycerin (Nitroglycerin (Sl Tab) 0.4 Mg) 1 tab Q5M PRN SL .CHEST PAIN; Start 01/05/19 at 00:30 Acetaminophen (Tylenol Tab) 650 mg Q6H PRN PO .PAIN 1-3 OR TEMP; Start 01/05/19 at 00:30 Acetaminophen/ Hydrocodone Bitart ([place] (5/325)) 1 tab Q6H PRN PO .PAIN 4-6; Start 01/05/19 at 00:30 Acetaminophen/ Hydrocodone Bitart ([place] (5/325)) 2 tab Q6H PRN PO .PAIN 7-10 Last administered on 01/05/19at 06:14; Admin Dose 2 TAB; Start 01/05/19 at 00:30 Albuterol/ Ipratropium (Duoneb) 3 ml Q2H RESP THERAPY PRN HHN SHORTNESS OF BREATH Last administered on 01/05/19at 06:42; Admin Dose 3 ML; Start 01/05/19 at 00:30 Albuterol (Ventolin Hfa) 2 puff Q6H RESP THERAPY INH Last administered on 01/05/19at 03:17; Admin Dose 2 PUFF; Start 01/05/19 at 02:00 Apixaban (Eliquis) 10 mg BID PO ; Start 01/05/19 at 09:00 Aspirin (Halfprin) 81 mg DAILY PO ; Start 01/05/19 at 09:00 Carvedilol (Coreg) 6.25 mg BID PO ; Start 01/05/19 at 09:00 Furosemide (Lasix) 40 mg BID DIURETICS PO Last administered on 01/05/19at 06:09; Admin Dose 40 MG; Start 01/05/19 at 06:00 Acetaminophen/ Hydrocodone Bitart ([place] (10/325)) 1 tab Q4H PRN PO MODERATE PAIN LEVEL 4-6; Start 01/05/19 at 00:30 Nicotine (Nicoderm 21 Mg/ 24hr) 1 patch DAILY TRANSDERM ; Start 01/05/19 at 09:00 Coded Allergies: No Known Drug Allergies (Verified Allergy, Unknown, 01/05/19) Past Surgical History Past Surgical Hx: other (See HPI) Family History Significant Family History: no pertinent family hx Social History Smoking Status: Current every day smoker Drug Use: other (IV drug use history) Exam/Review of Systems Vital Signs Vitals Vital Signs Date Temp Pulse Resp B/P (MAP) Pulse Ox O2 O2 Flow FiO2 Time Delivery Rate 01/05/19 97.8 101 20 106/75 98 07:49 (85) 01/05/19 21 06:44 01/05/19 Nasal 03:00 Cannula 01/05/19 2.0 00:30 Intake and Output 01/04/19 01/04/19 01/05/19 1515:00 23:00 07:00 OutputOutput Total 800 ml BalanceBalance -800 ml Exam Constitutional: alert, oriented, well developed Head: normocephalic, atraumatic Eyes: EOMI, PERRL Respiratory: clear to auscultation, normal air movement Cardiovascular: regular rate and rhythm, nl pulses Gastrointestinal: soft, non-tender Extremities: other (The medial aspect of the right thigh, there is minimal swelling and tenderness) DEDE BELTRÁN MD January 05, 2019 08:44
[2019-01-05] MEDS ORDERED: APIXABAN 5 MG TABLET PO SCH (09:00)
[2019-01-05] MEDS: ASPIRIN (EC) 81 MG TAB PO SCH (09:02)
[2019-01-05] MEDS: NICOTINE (21 MG/24 HR) PATCH TRANSDERM SCH (09:03)
--- NOTE | 2019-01-05 11:13 | PN ---
Date/Time of Note Date/Time of Note DATE: 01/05/19 TIME: 11:00 Assessment/Plan VTE Prophylaxis Pharmacological prophylaxis: NA/contraindicated Pharm contraindication: bleeding (hemoptysis ) Lines/Catheters IV Catheter Type (from Nrs): Saline Lock Assessment/Plan Hospital Course Subjective: shaky , anxious Objective : General: A&O x3, answering questions appropriately, lethargic, tremulous HEENT: NC/ AT. PERRL. EOM intact Neck: supple CVS: S1, S2, RRR. no murmurs. no pain on chest wall palpation Lungs: CTA b/l. no wheezing or rhonchi Abd: Distended, firm, severe anasarca. Ext: moving all extremities, bilateral lower extremity edema with severe anasarca assessment and plan: Unfortunate 48 yo male, with a hx of drug abuse, known to us from multiple hospi talizations sent from outside ER for SOB now managed as follows : Acute resp failure 2/2 #2 Acute on chronic Systolic HF -likely 2/2 non compliance to meds / per notes, meds were delivered to [facility] mendez prior to discharge last visit and he still is stating he could not get meds -continue diuresis -complete ACS r/o -cardio consult ? Chronic CM with last EF 10-15% Pulmonary embolism / Left subclavian thrombus / Popiteal DVT -diagnosed 12/01/18 -hold eliquis for blood tinged sputum for now -coag panel -repeat CT? Sepsis ? -2/2 # pneumonia Recurrent Pleural effusion R/o underlying Pneumonia -nurses document blood tinged sputum and leucocytosis noted -may need repeat CT to redefine lung parenchyma Hep C / Liver cirrhosis / Hyperbilirubinemia / anasarca / ascites -continued on spironolactone as well -r/o coagulopathy -Refferal to hepatology at discharge MARIBEL on CKD COPD: PRN breathing treatments as indicated, Illicit drug use - Amphetamines Non compliance to therapy Plan: -will begin abx for HCAP, plan to repeat CT after thoracentesis to properly define lung parenchyma -continue diuresis and supportive care -extensive counselling on drug use and medication compliance -may resume eliquis after thora and CT review if no further hemoptysis -cardio / nephro consults? -close monitoring Poor half-way prognosis Result Diagram: 01/05/19 0520 01/05/19 0520 Results 24hrs Laboratory Tests Test 01/05/19 05:20 White Blood Count 12.1 #H Red Blood Count 5.41 Hemoglobin 13.1 L Hematocrit 45.4 Mean Corpuscular Volume 83.9 Mean Corpuscular Hemoglobin 24.2 L Mean Corpuscular Hemoglobin Concent 28.9 L Red Cell Distribution Width 21.2 H Platelet Count 320 # Mean Platelet Volume 9.7 Immature Granulocytes % 0.500 H Neutrophils % 66.4 Lymphocytes % 14.7 L Monocytes % 14.2 H Eosinophils % 3.1 Basophils % 1.1 Nucleated Red Blood Cells % 0.0 Immature Granulocytes # 0.060 H Neutrophils # 8.0 H Lymphocytes # 1.8 Monocytes # 1.7 H Eosinophils # 0.4 Basophils # 0.1 Nucleated Red Blood Cells # 0.0 Sodium Level 136 Potassium Level 5.1 Chloride Level 97 Carbon Dioxide Level 29 Anion Gap 10 Blood Urea Nitrogen 37 H Creatinine 1.54 H Est Glomerular Filtrat Rate mL/min 48 L Glucose Level 95 Calcium Level 9.8 Magnesium Level 2.0 Total Bilirubin 1.6 H Direct Bilirubin 0.00 Indirect Bilirubin 1.6 H Aspartate Amino Transf (AST/SGOT) 20 Alanine Aminotransferase (ALT/SGPT) 25 Alkaline Phosphatase 116 Creatine Kinase 32 Creatine Kinase Index 7.8 Creatinine Kinase MB (Mass) 2.50 H Troponin I 0.024 Total Protein 6.5 Albumin 3.6 Globulin 2.90 Albumin/Globulin Ratio 1.24 Exam/Review of Systems Exam Vitals Vital Signs Date Temp Pulse Resp B/P (MAP) Pulse Ox O2 O2 Flow FiO2 Time Delivery Rate 01/05/19 97.8 101 20 106/75 98 07:49 (85) 01/05/19 21 06:44 01/05/19 Nasal 03:00 Cannula 01/05/19 2.0 00:30 Intake and Output 01/04/19 01/04/19 01/05/19 1515:00 23:00 07:00 OutputOutput Total 800 ml BalanceBalance -800 ml Results Results 24hrs Laboratory Tests Test 01/05/19 05:20 White Blood Count 12.1 #H Red Blood Count 5.41 Hemoglobin 13.1 L Hematocrit 45.4 Mean Corpuscular Volume 83.9 Mean Corpuscular Hemoglobin 24.2 L Mean Corpuscular Hemoglobin Concent 28.9 L Red Cell Distribution Width 21.2 H Platelet Count 320 # Mean Platelet Volume 9.7 Immature Granulocytes % 0.500 H Neutrophils % 66.4 Lymphocytes % 14.7 L Monocytes % 14.2 H Eosinophils % 3.1 Basophils % 1.1 Nucleated Red Blood Cells % 0.0 Immature Granulocytes # 0.060 H Neutrophils # 8.0 H Lymphocytes # 1.8 Monocytes # 1.7 H Eosinophils # 0.4 Basophils # 0.1 Nucleated Red Blood Cells # 0.0 Sodium Level 136 Potassium Level 5.1 Chloride Level 97 Carbon Dioxide Level 29 Anion Gap 10 Blood Urea Nitrogen 37 H Creatinine 1.54 H Est Glomerular Filtrat Rate mL/min 48 L Glucose Level 95 Calcium Level 9.8 Magnesium Level 2.0 Total Bilirubin 1.6 H Direct Bilirubin 0.00 Indirect Bilirubin 1.6 H Aspartate Amino Transf (AST/SGOT) 20 Alanine Aminotransferase (ALT/SGPT) 25 Alkaline Phosphatase 116 Creatine Kinase 32 Creatine Kinase Index 7.8 Creatinine Kinase MB (Mass) 2.50 H Troponin I 0.024 Total Protein 6.5 Albumin 3.6 Globulin 2.90 Albumin/Globulin Ratio 1.24 Medications Medication Current Medications IV Flush (NS 3 ml) 3 ml PER PROTOCOL IV ; Start 01/05/19 at 00:30 Ondansetron HCl (Zofran Inj) 4 mg Q6H PRN IV NAUSEA/VOMITING; Start 01/05/19 at 00:30 Nitroglycerin (Nitroglycerin (Sl Tab) 0.4 Mg) 1 tab Q5M PRN SL .CHEST PAIN; Start 01/05/19 at 00:30 Acetaminophen (Tylenol Tab) 650 mg Q6H PRN PO .PAIN 1-3 OR TEMP; Start 01/05/19 at 00:30 Acetaminophen/ Hydrocodone Bitart ([place] (5/325)) 1 tab Q6H PRN PO .PAIN 4-6; Start 01/05/19 at 00:30 Acetaminophen/ Hydrocodone Bitart ([place] (5/325)) 2 tab Q6H PRN PO .PAIN 7-10 Last administered on 01/05/19at 06:14; Admin Dose 2 TAB; Start 01/05/19 at 00:30 Albuterol/ Ipratropium (Duoneb) 3 ml Q2H RESP THERAPY PRN HHN SHORTNESS OF BR EATH Last administered on 01/05/19 06:42; Admin Dose 3 ML; Start 01/05/19 at 00:30 Albuterol (Ventolin Hfa) 2 puff Q6H RESP THERAPY INH Last administered on 01/05/19 03:17; Admin Dose 2 PUFF; Start 01/05/19 at 02:00 Apixaban (Eliquis) 10 mg BID PO Last administered on 01/05/19 09:03; Admin Dos e 10 MG; Start 01/05/19 at 09:00 Aspirin (Halfprin) 81 mg DAILY PO Last administered on 01/05/19 09:02; Admin Dose 81 MG; Start 01/05/19 at 09:00 Carvedilol (Coreg) 6.25 mg BID PO Last administered on 01/05/19 09:04; Admin Dose 6.25 MG; Start 01/05/19 at 09:00 Furosemide (Lasix) 40 mg BID DIURETICS PO Last administered on 01/05/19 06:09; Admin Dose 40 MG; Start 01/05/19 at 06:00 Acetaminophen/ Hydrocodone Bitart ([place] (10/325)) 1 tab Q4H PRN PO MODERATE PAIN LEVEL 4-6 Last administered on 01/05/19 10:17; Admin Dose 1 TAB; Start 01/05/19 at 00:30 Nicotine (Nicoderm 21 Mg/ 24hr) 1 patch DAILY TRANSDERM Last administered on 01/05/19 09:03; Admin Dose 1 PATCH; Start 01/05/19 at 09:00 ARMAND FERMIN January 05, 2019 11:13
[2019-01-05] MEDS: SPIRONOLACTONE 25 MG TAB PO SCH (12:43)
[2019-01-05] MEDS: DOCUSATE SODIUM 100 MG CAP PO SCH ×2 (12:43→20:21)
[2019-01-05] MEDS: FAMOTIDINE 20 MG TAB PO SCH ×2 (12:44→20:21)
[2019-01-05] MEDS: CEFEPIME 1GM/50 ML (PMX) 50 ML IVPB SCH ×2 (12:44→20:21)
[2019-01-05] MEDS ORDERED: morphine 2 MG INJ IV STA (12:45)
[2019-01-05] MEDS ORDERED: morphine 2 MG INJ IV PRN (13:00)
[2019-01-05] MEDS ORDERED: LORAZEPAM 2 MG INJ IV PRN (14:30)
[2019-01-05] MEDS ORDERED: LIDOCAINE 1% (MPF) 5 ML VIAL ONE (14:36)
--- NOTE | 2019-01-05 15:30 | CONS ---
Assessment/Plan Assessment/Plan Assessment/Plan (Daily) History of severe cardiomyopathy with an EF of 50% History of bilateral pulmonary emboli History of bilateral lower extremity DVTs Hepatitis C Active crystal methamphetamine user Minor adjustments of benzodiazepines and suggest to discontinue the [place] and to stay with morphine at this point. May help with his cardiac symptoms additionally. Since he inhales crystal methamphetamine he probably still has metabolites in his system but is not actively withdrawing at this time but will follow closely. Consultation Date/Type/Reason Admit Date/Time January 04, 2019 at 23:21 Date/Time of Note DATE: 01/05/19 TIME: 15:28 Hx of Present Illness This is a 48-year-old gentleman who has a history of severe cardiomyopathy with an ejection fraction of 15 to 20% on steroids secondary to crystal methamphetamine abuse. Patient has been using for the last 10 years. Last time he uses approximately 5 days ago. Denies use of any other illicit street drugs including heroin marijuana, ecstasy or other street drugs. Has had multiple hospitalizations for increasing shortness of breath sent in outside hospital with shortness of breath once again transferred to [facility] secondary to insurance reasons. Other comorbid medical problems and instrument include lateral pulmonary emboli, left lower extremity DVT, chronic obstructive pulmonary disease, cirrhosis, hep C, patient has a history of smoking and he drinks infrequently. There is no history of incarceration or suicidal attempts in the past. For there is no family history of addictions. Constitutional: chills, diaphoresis, requiring O2 ENT: no complaints Respiratory: pleuritic pain, shortness of breath, sputum Cardiovascular: chest pain, edema Gastrointestinal: no complaints; No pain, No blood, No constipation, No decreased appetite, No diarrhea, No flatus, No nausea, No passing stool, No vomiting, No other Genitourinary: No no complaints, No bleeding, No dysuria, No discharge, No flank pain, No hematuria, No other Musculoskeletal: no complaints; No back pain, No bone/joint pain, No neck pain, No restricted range of motion, No swelling, No other Skin: No no complaints, No bruising, No erythema, No laceration, No pruritis, No rash, No skin lesions, No other Neurologic: No no complaints, No confusion, No dizziness, No focal-weakness, No headache, No syncope, No seizure, No other Psychological: anxiety Past Medical History Medical History: congestive heart failure, deep vein thrombosis, hepatitis, other (See HPI) Home Meds Active Scripts Hydrocodone/Acetaminophen (Hydrocodone-Acetamin 10-325 mg) 1 Each Tablet, 1 TAB PO Q4H PRN for MODERATE PAIN LEVEL 4-6, #20 TAB Prov:JOSE BRADY MD 12/04/18 Apixaban* (Eliquis*) 5 Mg Tablet, 10 MG PO BID, #90 TAB Take 2 tabs (10mg) twice daily for 7 days then take 1 tab (5mg) twice daily afterwards. Prov:JOSE BRADY MD 12/04/18 Albuterol Sulfate* (Proair HFA*) 8.5 Gm Hfa.aer.ad, 2 PUFF INH Q6 for SOB, #1 INHALER Prov:JOSE BRADY MD 12/04/18 Furosemide* (Lasix*) 40 Mg Tablet, 40 MG PO BID for 30 Days, #60 TAB 1 Refill Take with Aldactone at the same time, take evening dose of before 6 PM as to not effect your sleep Prov:DAMEON MADRIGAL MD 11/21/18 Carvedilol* (Carvedilol*) 6.25 Mg Tablet, 6.25 MG PO BID, #60 TAB Prov:JOSE BRADY MD 10/06/18 Reported Medications Aspirin Ec (Aspir 81) 81 Mg Tablet.dr, 81 MG PO DAILY, #30 TAB 11/03/18 Medications Current Medications IV Flush (NS 3 ml) 3 ml PER PROTOCOL IV ; Start 01/05/19 at 00:30 Ondansetron HCl (Zofran Inj) 4 mg Q6H PRN IV NAUSEA/VOMITING; Start 01/05/19 at 00:30 Nitroglycerin (Nitroglycerin (Sl Tab) 0.4 Mg) 1 tab Q5M PRN SL .CHEST PAIN; Start 01/05/19 at 00:30 Acetaminophen (Tylenol Tab) 650 mg Q6H PRN PO .PAIN 1-3 OR TEMP; Start 01/05/19 at 00:30 Acetaminophen/ Hydrocodone Bitart ([place] (5/325)) 1 tab Q6H PRN PO .PAIN 4-6; Start 01/05/19 at 00:30 Acetaminophen/ Hydrocodone Bitart ([place] (5/325)) 2 tab Q6H PRN PO .PAIN 7-10 Last administered on 01/05/19 06:14; Admin Dose 2 TAB; Start 01/05/19 at 00:30 Albuterol/ Ipratropium (Duoneb) 3 ml Q2H RESP THERAPY PRN HHN SHORTNESS OF BREATH Last administered on 01/05/19 11:28; Admin Dose 3 ML; Start 01/05/19 at 00:30 Albuterol (Ventolin Hfa) 2 puff Q6H RESP THERAPY INH Last administered on 01/05/19 12:53; Admin Dose 2 PUFF; Start 01/05/19 at 02:00 Apixaban (Eliquis) 10 mg BID PO Last administered on 01/05/19 09:03; Admin Dose 10 MG; Start 01/05/19 at 09:00; Status Hold Aspirin (Halfprin) 81 mg DAILY PO Last administered on 01/05/19 09:02; Admin Dose 81 MG; Start 01/05/19 at 09:00 Acetaminophen/ Hydrocodone Bitart ([place] (10/325)) 1 tab Q4H PRN PO MODERATE PAIN LEVEL 4-6 Last administered on 01/05/19 10:17; Admin Dose 1 TAB; Start 01/05/19 at 00:30 Nicotine (Nicoderm 21 Mg/ 24hr) 1 patch DAILY TRANSDERM Last administered on 01/05/19 09:03; Admin Dose 1 PATCH; Start 01/05/19 at 09:00 Carvedilol (Coreg) 3.25 mg BID PO ; Start 01/05/19 at 21:00 Furosemide (Lasix) 20 mg BID DIURETICS IV ; Start 01/05/19 at 18:00 Spironolactone (Aldactone) 25 mg DAILY PO Last administered on 01/05/19 12:43; Admin Dose 25 MG; Start 01/05/19 at 11:30 Cefepime HCl 50 ml @ 100 mls/hr Q12 IVPB Last administered on 01/05/19 12:44; Admin Dose 100 MLS/HR; Start 01/05/19 at 11:30 Docusate Sodium (Colace) 100 mg BID PO Last administered on 01/05/19 12:43; Admin Dose 100 MG; Start 01/05/19 at 11:30 Famotidine (Pepcid) 20 mg BID PO Last administered on 01/05/19at 12:44; Admin Dose 20 MG; Start 01/05/19 at 11:30 Morphine Sulfate (morphine) 2 mg Q4H PRN IV SEVERE PAIN LEVEL 7-10; Start 01/05/19 at 13:00 Chlordiazepoxide (Librium) 50 mg TID PO ; Start 01/06/19 at 21:00; Stop 01/07/19 at 20:59 Chlordiazepoxide (Librium) 25 mg Q4 PO ; Start 01/05/19 at 15:30; Stop 01/06/19 at 15:29 Chlordiazepoxide (Librium) 25 mg TID PO ; Start 01/07/19 at 21:00; Stop 01/08/19 at 20:59 Lorazepam (Ativan) 1 mg Q8H PRN IV agitation / withdrawal; Start 01/05/19 at 14:30 Allergies: Coded Allergies: No Known Drug Allergies (Verified Allergy, Unknown, 01/05/19) Past Surgical History Past Surgical Hx: appendectomy Social History Alcohol Use: occasionally Smoking Status: Current every day smoker Drug Use: other ([place] crystal methamphetamine) Exam/Review of Systems Exam Vitals Vital Signs Date Temp Pulse Resp B/P (MAP) Pulse Ox O2 O2 Flow FiO2 Time Delivery Rate 01/05/19 98.4 95 20 109/65 93 13:21 (80) 01/05/19 Nasal 4.0 12:44 Cannula 01/05/19 21 06:44 Intake and Output 01/04/19 01/04/19 01/05/19 1515:00 23:00 07:00 OutputOutput Total 800 ml BalanceBalance -800 ml Constitutional: alert, distress Psych: anxiety Head: No normocephalic, No atraumatic, No lacerations, No hematomas, No other Eyes: No nl conjunctiva, No EOMI, No nl lids, No nl sclera, No PERRL, No icteric, No fundi, disc, No other ENMT: No nl external ears & nose, No nl lips & teeth, No nl nasal mucosa & septum, No mucosa pink and moist, No intubated, No tympanic membranes, No other Neck: No supple, No non-tender, No jvd, No bruits, No masses, No thyromegaly, No nuchal rigidity, No other Respiratory: diminished breath sounds, labored breathing Cardiovascular: regular rate and rhythm, nl pulses Gastrointestinal: soft, nl liver, spleen, non-tender; No ascites, No bowel sounds, No distended, No firm, No hepatomegaly, No mass, No rebound or guarding, No splenomegaly, No surgical scars, No tender, No other Neurological: [employer] II-XII intact, nl mental status, nl speech, nl strength; No confused, No DTR's symmetric, No focal weakness, No lethargic, No nu mbness, No reflexes, No unresponsive, No other Results Result Diagram: 01/05/1951901/05/19 0520 Results 24hrs Laboratory Tests Test 01/05/19 05:20 01/05/19 10:43 01/05/19 11:35 White Blood Count 12.1 #H Red Blood Count 5.41 Hemoglobin 13.1 L Hematocrit 45.4 Mean Corpuscular Volume 83.9 Mean Corpuscular Hemoglobin 24.2 L Mean Corpuscular Hemoglobin Concent 28.9 L Red Cell Distribution Width 21.2 H Platelet Count 320 # Mean Platelet Volume 9.7 Immature Granulocytes % 0.500 H Neutrophils % 66.4 Lymphocytes % 14.7 L Monocytes % 14.2 H Eosinophils % 3.1 Basophils % 1.1 Nucleated Red Blood Cells % 0.0 Immature Granulocytes # 0.060 H Neutrophils # 8.0 H Lymphocytes # 1.8 Monocytes # 1.7 H Eosinophils # 0.4 Basophils # 0.1 Nucleated Red Blood Cells # 0.0 Sodium Level 136 Potassium Level 5.1 Chloride Level 97 Carbon Dioxide Level 29 Anion Gap 10 Blood Urea Nitrogen 37 H Creatinine 1.54 H Est Glomerular Filtrat Rate mL/min 48 L Glucose Level 95 Calcium Level 9.8 Magnesium Level 2.0 Total Bilirubin 1.6 H Direct Bilirubin 0.00 Indirect Bilirubin 1.6 H Aspartate Amino Transf (AST/SGOT) 20 Alanine Aminotransferase (ALT/SGPT) 25 Alkaline Phosphatase 116 Creatine Kinase 32 30 Creatine Kinase Index 7.8 8.1 Creatinine Kinase MB (Mass) 2.50 H 2.44 H Troponin I 0.024 0.022 Total Protein 6.5 Albumin 3.6 Globulin 2.90 Albumin/Globulin Ratio 1.24 Prothrombin Time 19.0 H Prothrombin Time Ratio 1.5 INR International Normalized Ratio 1.58 Activated Partial Thromboplast Time 47.8 H Medications Medication Current Medications IV Flush (NS 3 ml) 3 ml PER PROTOCOL IV ; Start 01/05/19 at 00:30 Ondansetron HCl (Zofran Inj) 4 mg Q6H PRN IV NAUSEA/VOMITING; Start 01/05/19 at 00:30 Nitroglycerin (Nitroglycerin (Sl Tab) 0.4 Mg) 1 tab Q5M PRN SL .CHEST PAIN; Start 01/05/19 at 00:30 Acetaminophen (Tylenol Tab) 650 mg Q6H PRN PO .PAIN 1-3 OR TEMP; Start 01/05/19 at 00:30 Acetaminophen/ Hydrocodone Bitart ([place] (5/325)) 1 tab Q6H PRN PO .PAIN 4-6; Start 01/05/19 at 00:30 Acetaminophen/ Hydrocodone Bitart ([place] (5/325)) 2 tab Q6H PRN PO .PAIN 7-10 Last administered on 01/05/19 06:14; Admin Dose 2 TAB; Start 01/05/19 at 00:30 Albuterol/ Ipratropium (Duoneb) 3 ml Q2H RESP THERAPY PRN HHN SHORTNESS OF BREATH Last administered on 01/05/19 11:28; Admin Dose 3 ML; Start 01/05/19 at 00:30 Albuterol (Ventolin Hfa) 2 puff Q6H RESP THERAPY INH Last administered on 01/05/19 12:53; Admin Dose 2 PUFF; Start 01/05/19 at 02:00 Apixaban (Eliquis) 10 mg BID PO Last administered on 01/05/19 09:03; Admin Dose 10 MG; Start 01/05/19 at 09:00; Status Hold Aspirin (Halfprin) 81 mg DAILY PO Last administered on 01/05/19 09:02; Admin Dose 81 MG; Start 01/05/19 at 09:00 Acetaminophen/ Hydrocodone Bitart ([place] (10/325)) 1 tab Q4H PRN PO MODERATE PAIN LEVEL 4-6 Last administered on 01/05/19 10:17; Admin Dose 1 TAB; Start 01/05/19 at 00:30 Nicotine (Nicoderm 21 Mg/ 24hr) 1 patch DAILY TRANSDERM Last administered on 01/05/19 09:03; Admin Dose 1 PATCH; Start 01/05/19 at 09:00 Carvedilol (Coreg) 3.25 mg BID PO ; Start 01/05/19 at 21:00 Furosemide (Lasix) 20 mg BID DIURETICS IV ; Start 01/05/19 at 18:00 Spironolactone (Aldactone) 25 mg DAILY PO Last administered on 01/05/19at 12:43; Admin Dose 25 MG; Start 01/05/19 at 11:30 Cefepime HCl 50 ml @ 100 mls/hr Q12 IVPB Last administered on 01/05/19at 12:44; Admin Dose 100 MLS/HR; Start 01/05/19 at 11:30 Docusate Sodium (Colace) 100 mg BID PO Last administered on 01/05/19at 12:43; Admin Dose 100 MG; Start 01/05/19 at 11:30 Famotidine (Pepcid) 20 mg BID PO Last administered on 01/05/19at 12:44; Admin Dose 20 MG; Start 01/05/19 at 11:30 Morphine Sulfate (morphine) 2 mg Q4H PRN IV SEVERE PAIN LEVEL 7-10; Start 01/05/19 at 13:00 Chlordiazepoxide (Librium) 50 mg TID PO ; Start 01/06/19 at 21:00; Stop 01/07/19 at 20:59 Chlordiazepoxide (Librium) 25 mg Q4 PO ; Start 01/05/19 at 15:30; Stop 01/06/19 at 15:29 Chlordiazepoxide (Librium) 25 mg TID PO ; Start 01/07/19 at 21:00; Stop 01/08/19 at 20:59 Lorazepam (Ativan) 1 mg Q8H PRN IV agitation / withdrawal; Start 01/05/19 at 14:30 MEEK BASSETT January 05, 2019 15:30
[2019-01-05] MEDS: CHLORDIAZEPOXIDE 25 MG CAP PO SCH ×3 (16:06→20:21)
[2019-01-05] MEDS: FUROSEMIDE 20 MG INJ IV SCH (17:08)
[2019-01-05] MEDS: morphine 2 MG INJ IV PRN (17:09)
[2019-01-06] MEDS: ALBUTEROL HFA 8 GM INHALER INH SCH ×5 (01:03→19:34)
[2019-01-06] MEDS: CHLORDIAZEPOXIDE 25 MG CAP PO SCH ×5 (01:03→20:47)
[2019-01-06] MEDS: morphine 2 MG INJ IV PRN ×5 (01:04→17:32)
[2019-01-06] MEDS: FUROSEMIDE 20 MG INJ IV SCH ×2 (05:09→17:33)
[2019-01-06 05:17] VITALS: BP 102/66; PULSE 76; RESP 18
[2019-01-06 08:10] VITALS: BP 110/78; PULSE 85; RESP 18
[2019-01-06] MEDS: CEFEPIME 1GM/50 ML (PMX) 50 ML IVPB SCH ×2 (09:20→20:46)
[2019-01-06] MEDS: DOCUSATE SODIUM 100 MG CAP PO SCH ×2 (09:21→20:47)
[2019-01-06] MEDS: SPIRONOLACTONE 25 MG TAB PO SCH (09:21)
[2019-01-06] MEDS: ASPIRIN (EC) 81 MG TAB PO SCH (09:21)
[2019-01-06] MEDS: FAMOTIDINE 20 MG TAB PO SCH ×2 (09:22→20:47)
[2019-01-06] MEDS: NICOTINE (21 MG/24 HR) PATCH TRANSDERM SCH (09:23)
[2019-01-06 14:42] VITALS: BP 107/77; PULSE 59; RESP 18
--- NOTE | 2019-01-06 14:42 | PN ---
Date/Time of Note Date/Time of Note DATE: 01/06/19 TIME: 14:42 Assessment/Plan VTE Prophylaxis Risk score (from Nsg)>0 risk: 4 SCD applied (from Nsg): Yes Pharmacological prophylaxis: NA/contraindicated Pharm contraindication: bleeding Lines/Catheters IV Catheter Type (from Nrsg): Peripheral IV Urinary Cath still in place: No Assessment/Plan Hospital Course Subjective: lower abd pain, concern for urinary retention Objective : General: A&O x3, answering questions appropriately, mildly lethargic, HEENT: NC/ AT. PERRL. EOM intact Neck: supple CVS: S1, S2, RRR. no murmurs. no pain on chest wall palpation Lungs: CTA b/l. no wheezing or rhonchi Abd: Distended, firm, severe anasarca, ascites Ext: moving all extremities, bilateral lower extremity edema with severe anasa rca assessment and plan: Unfortunate 48 yo male, with a hx of drug abuse, known to us from multiple hospitalizations sent from outside ER for SOB now managed as follows : 1. Acute resp failure 2/2 #2 : improved 2. Acute on chronic Systolic HF -likely 2/2 non compliance to meds / per notes, meds were delivered to pat ient prior to discharge last visit and he still is stating he could not get meds -continue diuresis -ACS ruled out 3. Chronic CM with last EF 10-15% 4. Pulmonary embolism / Left subclavian thrombus / Popiteal DVT -diagnosed 12/01/18 -hold eliquis for blood tinged sputum for now 5. Sepsis -2/2 # pneumonia 6. Recurrent Pleural effusion with underlying Pneumonia -s/p R sided thoracentesis 01/05/19, 1500 cc of serosanguinous fluid drained and discarded 7. Hep C / Liver cirrhosis / Hyperbilirubinemia / anasarca / ascites -continued on lasix / spironolactone as well -Refferal to hepatology at discharge -may need paracentesis as well 8. MARIBEL on CKD -improved 9. COPD: PRN breathing treatments as indicated, 10. Illicit drug use - Amphetamines 11. Non compliance to therapy 12. Hemoptysis : -nurses documented blood tinged sputum on admission, no further episodes since -Needs chest CT Plan: - Continue abx, plan to repeat CT to properly define lung parenchyma - pass collado, order paracentesis -continue diuresis and supportive care - reinforce extensive counselling on drug use and medication compliance -may resume eliquis after CT review if no further hemoptysis -cardio / nephro consults -close monitoring Poor shelter prognosis Result Diagram: 01/06/19 0449 01/06/19 0449 Results 24hrs Laboratory Tests Test 01/06/19 04:49 White Blood Count 11.6 H Red Blood Count 5.76 Hemoglobin 14.0 Hematocrit 47.1 Mean Corpuscular Volume 81.8 L Mean Corpuscular Hemoglobin 24.3 L Mean Corpuscular Hemoglobin Concent 29.7 L Red Cell Distribution Width 21.2 H Platelet Count 345 Mean Platelet Volume 9.5 Immature Granulocytes % 0.700 H Neutrophils % 74.1 Lymphocytes % 12.0 L Monocytes % 9.5 Eosinophils % 2.7 Basophils % 1.0 Nucleated Red Blood Cells % 0.0 Immature Granulocytes # 0.080 H Neutrophils # 8.6 H Lymphocytes # 1.4 Monocytes # 1.1 H Eosinophils # 0.3 Basophils # 0.1 Nucleated Red Blood Cells # 0.0 Sodium Level 137 Potassium Level 5.4 H Chloride Level 96 L Carbon Dioxide Level 25 Anion Gap 16 H Blood Urea Nitrogen 48 #H Creatinine 1.94 H Est Glomerular Filtrat Rate mL/min 37 L Glucose Level 106 Calcium Level 9.8 Phosphorus Level 5.9 H Magnesium Level 2.0 Total Bilirubin 1.3 Direct Bilirubin 0.00 Indirect Bilirubin 1.3 H Aspartate Amino Transf (AST/SGOT) 23 Alanine Aminotransferase (ALT/SGPT) 21 Alkaline Phosphatase 111 Total Protein 6.3 Albumin 3.3 Exam/Review of Systems Exam Vitals Vital Signs Date Temp Pulse Resp B/P (MAP) Pulse Ox O2 O2 Flow FiO2 Time Delivery Rate 01/06/19 97.7 85 18 110/78 99 08:10 (89) 01/06/19 4.0 04:07 01/05/19 Nasal 20:00 Cannula 01/05/19 21 06:44 Intake and Output 01/05/19 01/05/19 01/06/19 1515:00 23:00 07:00 IntakeIntake Total 650 ml 820 ml OutputOutput Total 550 ml 300 ml BalanceBalance 100 ml 520 ml Results Results 24hrs Laboratory Tests Test 01/06/19 04:49 White Blood Count 11.6 H Red Blood Count 5.76 Hemoglobin 14.0 Hematocrit 47.1 Mean Corpuscular Volume 81.8 L Mean Corpuscular Hemoglobin 24.3 L Mean Corpuscular Hemoglobin Concent 29.7 L Red Cell Distribution Width 21.2 H Platelet Count 345 Mean Platelet Volume 9.5 Immature Granulocytes % 0.700 H Neutrophils % 74.1 Lymphocytes % 12.0 L Monocytes % 9.5 Eosinophils % 2.7 Basophils % 1.0 Nucleated Red Blood Cells % 0.0 Immature Granulocytes # 0.080 H Neutrophils # 8.6 H Lymphocytes # 1.4 Monocytes # 1.1 H Eosinophils # 0.3 Basophils # 0.1 Nucleated Red Blood Cells # 0.0 Sodium Level 137 Potassium Level 5.4 H Chloride Level 96 L Carbon Dioxide Level 25 Anion Gap 16 H Blood Urea Nitrogen 48 #H Creatinine 1.94 H Est Glomerular Filtrat Rate mL/min 37 L Glucose Level 106 Calcium Level 9.8 Phosphorus Level 5.9 H Magnesium Level 2.0 Total Bilirubin 1.3 Direct Bilirubin 0.00 Indirect Bilirubin 1.3 H Aspartate Amino Transf (AST/SGOT) 23 Alanine Aminotransferase (ALT/SGPT) 21 Alkaline Phosphatase 111 Total Protein 6.3 Albumin 3.3 Medications Medication Current Medications IV Flush (NS 3 ml) 3 ml PER PROTOCOL IV ; Start 01/05/19 at 00:30 Ondansetron HCl (Zofran Inj) 4 mg Q6H PRN IV NAUSEA/VOMITING; Start 01/05/19 at 00:30 Nitroglycerin (Nitroglycerin (Sl Tab) 0.4 Mg) 1 tab Q5M PRN SL .CHEST PAIN; Start 01/05/19 at 00:30 Acetaminophen (Tylenol Tab) 650 mg Q6H PRN PO .PAIN 1-3 OR TEMP; Start 01/05/19 at 00:30 Albuterol/ Ipratropium (Duoneb) 3 ml Q2H RESP THERAPY PRN HHN SHORTNESS OF BREATH Last administered on 01/05/19at 11:28; Admin Dose 3 ML; Start 01/05/19 at 00:30 Albuterol (Ventolin Hfa) 2 puff Q6H RESP THERAPY INH Last administered on 01/06/19at 13:32; Admin Dose 2 PUFF; Start 01/05/19 at 02:00 Apixaban (Eliquis) 10 mg BID PO Last administered on 01/05/19 09:03; Admin Dose 10 MG; Start 01/05/19 at 09:00; Status Hold Aspirin (Halfprin) 81 mg DAILY PO Last administered on 01/06/19 09:21; Admin Dose 81 MG; Start 01/05/19 at 09:00 Nicotine (Nicoderm 21 Mg/ 24hr) 1 patch DAILY TRANSDERM Last administered on 01/06/19 09:23; Admin Dose 1 PATCH; Start 01/05/19 at 09:00 Carvedilol (Coreg) 3.25 mg BID PO Last administered on 01/06/19 09:22; Admin Dose 3.25 MG; Start 01/05/19 at 21:00 Furosemide (Lasix) 20 mg BID DIURETICS IV Last administered on 01/06/19 05:09; Admin Dose 20 MG; Start 01/05/19 at 18:00 Spironolactone (Aldactone) 25 mg DAILY PO Last administered on 01/06/19 09:21; Admin Dose 25 MG; Start 01/05/19 at 11:30 Cefepime HCl 50 ml @ 100 mls/hr Q12 IVPB Last administered on 01/06/19 09:20; Admin Dose 100 MLS/HR; Start 01/05/19 at 11:30 Docusate Sodium (Colace) 100 mg BID PO Last administered on 01/06/19 09:21; Admin Dose 100 MG; Start 01/05/19 at 11:30 Famotidine (Pepcid) 20 mg BID PO Last administered on 01/06/19 09:22; Admin Dose 20 MG; Start 01/05/19 at 11:30 Chlordiazepoxide (Librium) 50 mg TID PO ; Start 01/06/19 at 21:00; Stop 01/07/19 at 20:59 Chlordiazepoxide (Librium) 25 mg Q4 PO Last administered on 01/06/19 13:31; Admin Dose 25 MG; Start 01/05/19 at 15:30; Stop 01/06/19 at 15:29 Chlordiazepoxide (Librium) 25 mg TID PO ; Start 01/07/19 at 21:00; Stop 01/08/19 at 20:59 Lorazepam (Ativan) 1 mg Q6 PRN IV agitation / withdrawal; Start 01/05/19 at 16:00 Morphine Sulfate (morphine) 2 mg Q3 PRN IV SEVERE PAIN LEVEL 7-10 Last administered on 01/06/19at 14:21; Admin Dose 2 MG; Start 01/05/19 at 16:00 ARMAND FERMIN January 06, 2019 14:42
[2019-01-06] MEDS ORDERED: SODIUM POLYSTYRENE 15 GM KIT (POWDER + SORBITOL) PO ONE (15:00)
[2019-01-06] MEDS ORDERED: NA POLYST SULFON 15 GM/60 ML BTL PO ONE (15:00)
[2019-01-06 17:30] VITALS: BP 107/79; PULSE 86
[2019-01-06] MEDS: LORAZEPAM 2 MG INJ IV PRN (19:32)
[2019-01-06 20:00] VITALS: BP 108/78; PULSE 88; RESP 18
[2019-01-07] VITALS (7 sets, daily range): BP systolic 93–120; BP diastolic 58–80; PULSE 79–92; RESP 17–24
[2019-01-07] MEDS: ALBUTEROL HFA 8 GM INHALER INH SCH ×4 (02:41→20:55)
[2019-01-07] MEDS: FUROSEMIDE 20 MG INJ IV SCH ×2 (05:37→17:56)
[2019-01-07] MEDS: CHLORDIAZEPOXIDE 25 MG CAP PO SCH ×3 (08:27→20:48)
[2019-01-07] MEDS: SPIRONOLACTONE 25 MG TAB PO SCH (08:27)
[2019-01-07] MEDS: FAMOTIDINE 20 MG TAB PO SCH ×2 (08:27→20:48)
[2019-01-07] MEDS: DOCUSATE SODIUM 100 MG CAP PO SCH ×2 (08:29→20:48)
[2019-01-07] MEDS: ASPIRIN (EC) 81 MG TAB PO SCH (08:29)
[2019-01-07] MEDS: morphine 2 MG INJ IV PRN ×4 (08:32→20:46)
[2019-01-07] MEDS: CEFEPIME 1GM/50 ML (PMX) 50 ML IVPB SCH ×2 (08:34→20:55)
[2019-01-07] MEDS: NICOTINE (21 MG/24 HR) PATCH TRANSDERM SCH (08:41)
[2019-01-07] MEDS ORDERED: LIDOCAINE 1% (MPF) 5 ML VIAL ONE (10:55)
--- NOTE | 2019-01-07 14:36 | PN ---
Date/Time of Note Date/Time of Note DATE: 01/07/19 TIME: 14:29 Assessment/Plan VTE Prophylaxis Risk score (from Nsg)>0 risk: 2 SCD applied (from Nsg): Yes Pharmacological prophylaxis: NA/contraindicated Pharm contraindication: bleeding, blood coag disorder (miild) Lines/Catheters IV Catheter Type (from Nrs): Saline Lock Urinary Cath still in place: No Assessment/Plan Hospital Course Subjective: for paracentesis today Objective : General: A&O x3, answering questions appropriately, very lethargic, HEENT: NC/ AT. PERRL. EOM intact Neck: supple CVS: S1, S2, RRR. no murmurs. no pain on chest wall palpation Lungs: CTA b/l. no wheezing or rhonchi Abd: Distended, firm, severe anasarca. Ext: moving all extremities, bilateral lower extremity edema with severe anasarca assessment and plan: Unfortunate 48 yo male, with a hx of drug abuse, known to us from multiple hospitalizations sent from outside ER for SOB now managed as follows : Acute resp failure 2/2 #2 : improved Acute on chronic Systolic HF -likely 2/2 non compliance to meds / per notes, meds were delivered to patient prior to discharge last visit and he still is stating he could not get meds -continue diuresis -ACS ruled out Chronic CM with last EF 10-15% Pulmonary embolism / Left subclavian thrombus / Popiteal DVT -diagnosed 12/01/18 -hold eliquis for blood tinged sputum for now -coag panel -repeat CT? Sepsis ? -2/2 # pneumonia Recurrent Pleural effusion R/o underlying Pneumonia -nurses document blood tinged sputum and leucocytosis noted -may need repeat CT to redefine lung parenchyma Hep C / Liver cirrhosis / Hyperbilirubinemia / anasarca / ascites -continued on spironolactone as well -Refferal to hepatology at discharge -paracentesis MARIBEL on CKD COPD: PRN breathing treatments as indicated, Illicit drug use - Amphetamines Non compliance to therapy Plan: -Continue abx for HCAP, CT after thoracentesis to properly define lung parenchyma today -continue diuresis and supportive care -extensive counselling on drug use and medication compliance -may resume eliquis after paracentesis and CT review if no further hemo ptysis -cardio / nephro consults to help with diuresis and optimization -close monitoring -plan for recuperative care at d/c. patient lives with room mates Poor fci prognosis Result Diagram: 01/07/19 0506 01/07/19 0506 Results 24hrs Laboratory Tests Test 01/07/19 05:06 White Blood Count 10.3 Red Blood Count 5.54 Hemoglobin 13.7 L Hematocrit 45.7 Mean Corpuscular Volume 82.5 Mean Corpuscular Hemoglobin 24.7 L Mean Corpuscular Hemoglobin Concent 30.0 L Red Cell Distribution Width 20.8 H Platelet Count 301 Mean Platelet Volume 9.9 Immature Granulocytes % 0.600 H Neutrophils % 78.8 H Lymphocytes % 8.3 L Monocytes % 7.7 Eosinophils % 4.0 Basophils % 0.6 Nucleated Red Blood Cells % 0.0 Immature Granulocytes # 0.060 H Neutrophils # 8.1 H Lymphocytes # 0.9 Monocytes # 0.8 Eosinophils # 0.4 Basophils # 0.1 Nucleated Red Blood Cells # 0.0 Prothrombin Time 17.1 H Prothrombin Time Ratio 1.3 INR International Normalized Ratio 1.38 Sodium Level 134 L Potassium Level 4.6 Chloride Level 94 L Carbon Dioxide Level 29 Anion Gap 11 Blood Urea Nitrogen 49 H Creatinine 1.62 H Est Glomerular Filtrat Rate mL/min 45 L Glucose Level 110 Calcium Level 9.3 Magnesium Level 2.1 Exam/Review of Systems Exam Vitals Vital Signs Date Temp Pulse Resp B/P (MAP) Pulse Ox O2 O2 Flow FiO2 Time Delivery Rate 01/07/19 98.2 79 17 98/62 (74) 93 Room Air 11:07 01/07/19 3.0 06:19 01/05/19 21 06:44 Intake and Output 01/06/19 01/06/19 01/07/19 1515:00 23:00 07:00 IntakeIntake Total 810 ml 530 ml OutputOutput Total 500 ml 450 ml BalanceBalance 810 ml 30 ml -450 ml Results Results 24hrs Laboratory Tests Test 01/07/19 05:06 White Blood Count 10.3 Red Blood Count 5.54 Hemoglobin 13.7 L Hematocrit 45.7 Mean Corpuscular Volume 82.5 Mean Corpuscular Hemoglobin 24.7 L Mean Corpuscular Hemoglobin Concent 30.0 L Red Cell Distribution Width 20.8 H Platelet Count 301 Mean Platelet Volume 9.9 Immature Granulocytes % 0.600 H Neutrophils % 78.8 H Lymphocytes % 8.3 L Monocytes % 7.7 Eosinophils % 4.0 Basophils % 0.6 Nucleated Red Blood Cells % 0.0 Immature Granulocytes # 0.060 H Neutrophils # 8.1 H Lymphocytes # 0.9 Monocytes # 0.8 Eosinophils # 0.4 Basophils # 0.1 Nucleated Red Blood Cells # 0.0 Prothrombin Time 17.1 H Prothrombin Time Ratio 1.3 INR International Normalized Ratio 1.38 Sodium Level 134 L Potassium Level 4.6 Chloride Level 94 L Carbon Dioxide Level 29 Anion Gap 11 Blood Urea Nitrogen 49 H Creatinine 1.62 H Est Glomerular Filtrat Rate mL/min 45 L Glucose Level 110 Calcium Level 9.3 Magnesium Level 2.1 Medications Medication Current Medications IV Flush (NS 3 ml) 3 ml PER PROTOCOL IV ; Start 01/05/19 at 00:30 Ondansetron HCl (Zofran Inj) 4 mg Q6H PRN IV NAUSEA/VOMITING; Start 01/05/19 at 00:30 Nitroglycerin (Nitroglycerin (Sl Tab) 0.4 Mg) 1 tab Q5M PRN SL .CHEST PAIN; Start 01/05/19 at 00:30 Acetaminophen (Tylenol Tab) 650 mg Q6H PRN PO .PAIN 1-3 OR TEMP; Start 01/05/19 at 00:30 Albuterol/ Ipratropium (Duoneb) 3 ml Q2H RESP THERAPY PRN HHN SHORTNESS OF BREATH Last administered on 01/05/19 11:28; Admin Dose 3 ML; Start 01/05/19 at 00:30 Albuterol (Ventolin Hfa) 2 puff Q6H RESP THERAPY INH Last administered on 12/17 08:31; Admin Dose 2 PUFF; Start 01/05/19 at 02:00 Apixaban (Eliquis) 10 mg BID PO Last administered on 01/05/19 09:03; Admin Dose 10 MG; Start 01/05/19 at 09:00; Status Hold Aspirin (Halfprin) 81 mg DAILY PO Last administered on 01/06/19 09:21; Admin Dose 81 MG; Start 01/05/19 at 09:00 Nicotine (Nicoderm 21 Mg/ 24hr) 1 patch DAILY TRANSDERM Last administered on 01/07/19 08:41; Admin Dose 1 PATCH; Start 01/05/19 at 09:00 Carvedilol (Coreg) 3.25 mg BID PO Last administered on 01/07/19 08:28; Admin Dose 3.25 MG; Start 01/05/19 at 21:00 Furosemide (Lasix) 20 mg BID DIURETICS IV Last administered on 01/07/19 05:37; Admin Dose 20 MG; Start 01/05/19 at 18:00 Spironolactone (Aldactone) 25 mg DAILY PO Last administered on 01/07/19 08:27; Admin Dose 25 MG; Start 01/05/19 at 11:30 Cefepime HCl 50 ml @ 100 mls/hr Q12 IVPB Last administered on 01/07/19 08:34; Admin Dose 100 MLS/HR; Start 01/05/19 at 11:30 Docusate Sodium (Colace) 100 mg BID PO Last administered on 01/07/19 08:29; Admin Dose 100 MG; Start 01/05/19 at 11:30 Famotidine (Pepcid) 20 mg BID PO Last administered on 01/07/19 08:27; Admin Dose 20 MG; Start 01/05/19 at 11:30 Chlordiazepoxide (Librium) 50 mg TID PO Last administered on 01/07/19 13:36; Admin Dose 50 MG; Start 01/06/19 at 21:00; Stop 01/07/19 at 20:59 Chlordiazepoxide (Librium) 25 mg TID PO ; Start 01/07/19 at 21:00; Stop 01/08/19 at 20:59 Lorazepam (Ativan) 1 mg Q6 PRN IV agitation / withdrawal Last administered on 01/06/19 19:32; Admin Dose 1 MG; Start 01/05/19 at 16:00 Morphine Sulfate (morphine) 2 mg Q3 PRN IV SEVERE PAIN LEVEL 7-10 Last administered on 01/07/19 08:32; Admin Dose 2 MG; Start 01/05/19 at 16:00 ARMAND FERMIN January 07, 2019 14:36
--- NOTE | 2019-01-07 19:13 | CONS ---
DATE OF ADMISSION: 01/04/2019 DATE OF CONSULTATION: 01/07/2019 TYPE OF CONSULTATION: Nephrology. REASON FOR CONSULTATION: Acute kidney injury, CKD. PHYSICIAN REQUESTING CONSULT: Armand Fermin MD HISTORY OF PRESENT ILLNESS: This is a 48-year-old male with a past medical history of systolic heart failure and diastolic heart failure, history of cirrhosis, history of polysubstance abuse, history o f hepatitis C, history of chronic kidney disease with baseline creatinine around 1.5 mg/dL, who was t ransferred to [facility] for decompensated heart failure. The patient initially pr esented to outside hospital for shortness of breath. At the outside hospital, the patient was noted to have decompensated heart failure. The patient also had CT angio which showed evidence of PE and D VT. The patient was initiated on diuretic therapy and was transferred to [facility] for continued care. While at [facility], the patient has been diuresing; however he still continues to have ongoing shortness of breath and respiratory failure. In terms of patient's renal history, the patient has previous baseline creatinine of 1.5 mg/dL. On a dmission, the patient's creatinine was at baseline, which has been fluctuating during hospital course . The patient is lethargic but denies any rashes, hemoptysis, hematemesis. PAST MEDICAL HISTORY: As stated above, history of chronic kidney disease, history of systolic heart failure, history of cardiomyopathy, history of cardiorenal syndrome, history of polysubstance abuse. PAST SURGICAL HISTORY: Reviewed. FAMILY HISTORY: No family history of kidney disease. SOCIAL HISTORY: Positive alcohol use, drug use. MEDICATIONS: Have been reviewed. REVIEW OF SYSTEMS: A 14-point review of systems conducted. Pertinent positives stated in HPI, other river negative. PHYSICAL EXAMINATION: VITAL SIGNS: Blood pressure is 110/70, respiration 18, pulse 98, temperature 97.5. HEENT: Head is normocephalic. NECK: Supple. Positive JVD. HEART: Regular rate. LUNGS: Show diminished breath sounds at base. Positive rhonchi. ABDOMEN: Soft, nontender to palpation without rebound or guarding. EXTREMITIES: Negative for clubbing, cyanosis. Positive edema. DERMATOLOGIC: No rashes. MUSCULOSKELETAL: No joint effusions. NEUROLOGIC: No focal deficits. LABORATORY DATA: Have been reviewed. ASSESSMENT AND PLAN: This is a 48-year-old male who presents with: 1. Nonoliguric acute kidney injury on top of chronic kidney disease stage III with a baseline creati nine of 1.5 mg/dL. Etiology of acute kidney injury is multifactorial secondary to diuretics, cardior enal syndrome. The possibility of tubular injury from recent contrast exposure is a consideration. Plan at this point is to check UA with microanalysis, check urine electrolytes. The patient's renal function appears to be returning back to previous baseline. We will continue diuretic therapy as the patient is clinically overloaded. We will monitor I's and O's and kidney function closely. 2. Acute on chronic systolic heart failure. The patient is clinically decompensated. We will adjus t diuretic regimen, increase Lasix to 40 mg IV b.i.d. Continue Aldactone. We will add metolazone to augment diuresis and monitor electrolytes, renal function closely. 3. Hyponatremia secondary to acute kidney injury and congestive heart failure. Limit free water int joan. 4. Mineral bone disorder. We will monitor calcium and phosphorus levels. 5. Ascites likely due to cirrhosis, right-sided heart failure. The patient is status post paracente sis. We will monitor closely. 6. Pleural effusion, status post thoracentesis. 7. Pulmonary embolism, deep venous thrombosis. The patient was previously on anticoagulation but he ld at this time due to hemoptysis. 8. Acute respiratory failure. Etiology is secondary to systolic heart failure, pulmonary embolism. Continue medical management. 9. Possible sepsis. Continue current antibiotic regimen. 10. History of hepatitis C. Continue to monitor. Check viral load. 11. History of chronic obstructive pulmonary disease. Continue current nebulizers. 12. Polysubstance abuse. Continue medical management. Thank you, Dr. Fermin, for this interesting consult. It will be a pleasure to follow patient with you t hrthaisout the hospital course. Dictated By: NHAN NIETO DO NR/NTS Conf#: [id number] DID#: [id number] CC: EVELIO MCKINNEY MD; ARMAND FERMIN MD;*EndCC*
[2019-01-08] MEDS: LORAZEPAM 2 MG INJ IV PRN (00:10)
[2019-01-08 01:28] VITALS: BP 128/83; PULSE 94; RESP 18
--- NOTE | 2019-01-08 02:35 | CONS ---
DATE OF ADMISSION: 01/04/2019 DATE OF CONSULTATION: 01/07/2019 REASON FOR CONSULTATION: Congestive heart failure, cardiomyopathy, history of depressed left ventricular ejection fraction, chest pain. REQUESTING PHYSICIAN: Dr. Fermin from the hospitalist service. HISTORY OF PRESENT ILLNESS: Mr. Eaton is a 48-year-old male with history of cardiomyopathy with severe systolic dysfunction, last known ejection fraction of approximately 15% by echo at [facility] 11/2018 and by echo here 10/2018, recurrent bouts of systolic congestive heart failure, polysubstance abuse, known with methamphetamines by a positive tox screen 2 admissions prior, lower extremity DVT with subsequent pulmonary embolism, COPD, cirrhosis, hepatitis C, who presents with complaints of current shortness of breath. Initially upon arrival in the emergency department back on the , temperature 97.9, blood pressure 115/56, pulse 105, respirations 18, satting 92% The patient's labs revealed white count of 12.1, hemoglobin 13.1, platelet count of 320. Sodium of 136, potassium 5.1, creatinine 1.54, BUN 37, AST 20, ALT 25. INR of 1.58. UA borderline. The patient underwent a chest x-ray revealing a right basilar consolidation, unchanged, mild Right-sided pleural effusion, improving and subsequent thoracentesis on the right side. The patient additionally since admit has undergone a paracentesis, large volume -4 liters. At this time, the patient continued to complain of abdominal pain, chest pain, mild shortness of breath, chest pain and chest tightness. MEDICATIONS CURRENTLY IN HOSPITAL: 1. Carvedilol 3.125 mg p.o. b.i.d. 2. Lasix 20 mg IV b.i.d. 4. Morphine p.r.n. 5. Cefepime q. 12. 6. Colace 100 mg b.i.d. 7. Pepcid. 8. Aspirin 81 mg daily. 9. Nicotine patch. 10. Eliquis on hold. ALLERGIES: NO KNOWN DRUG ALLERGIES. PAST MEDICAL HISTORY: As above in the HPI. In addition, the patient with history of recurrent pleural effusions. REVIEW OF SYSTEMS: As above in the HPI. CONSTITUTIONAL: No fevers, chills. PULMONARY: Shortness of breath. CARDIOVASCULAR: Congestive heart failure, cardiomyopathy. GASTROINTESTINAL: Cirrhosis, ascites. GENITOURINARY: No hematuria, renal failure. PSYCHIATRIC: No documented psych history. NEUROLOGIC: No documented history of CVA. ENDOCRINE: No documented history of diabetes mellitus. PHYSICAL EXAMINATION: VITAL SIGNS: Temperature of 96.1, blood pressure 110/70, pulse 90, respiratory rate 18, sat 98%. GENERAL: The patient is alert, awake, complaining of abdominal pain, chest pain. NECK: JVP approximately 9 cm of water. CHEST: Decreased breath sounds at bases bilaterally. HEART: Regular rate and rhythm. Normal S1, S2. Laterally displaced PMI. ABDOMEN: Distended, mild diffuse, tender to palpation. EXTREMITIES: Thickening of the skin. Trace edema. Difficult to palpate distal pulses bilateral posterior tibial. LABORATORIES: Most recently from today, white count 10.3, hemoglobin 13.7, platelet count 301. Sodium 134, potassium 4.6, creatinine 1.62, BUN 49. INR of 1.38. UA borderline. ECG: No electrocardiograms for my review at this time. IMAGING STUDIES: As above in the HPI. No further electrocardiograms for my review at this time. IMPRESSION: 1. CHF exacerbation, systolic, acute on chronic. 2. Cardiomyopathy with severely depressed left ventricular ejection fraction, last EF approximately 15% to 20%. 3. Substance abuse by tox screen known with methamphetamine. 4. Cirrhosis with ascites requiring large volume paracenteses. 5. Pleural effusion, status post thoracentesis. 6. History of DVT with Eliquis currently held and a history of pulmonary embolism secondary to that. 7. Renal failure. 8. Mild coagulopathy. 9. Hepatitis C. 10. COPD. RECOMMENDATIONS: 1. At this time, we would maintain the patient on carvedilol and the patient is in renal failure. We will initiate hydralazine afterload reduction in lieu of an AKANKSHA inhibitor at this time. Continue the patient's Aldactone. Follow up potassium closely and continue the patient's Lasix diuresis following volume status closely and creatinine. 2. We would check a baseline EKG now and repeat EKG in the morning. 3. Complete the patient's rule out for myocardial infarction and send final troponin and then we will consider initiation of oral nitrates to improve symptomatology of chest pain. 4. Continue the patient's antibiotics and follow up all culture data. Thank you for allowing me to take part in the care of this patient. I will continue to follow along very closely with you with recommendations to be made as the patient progressed through his inpatient hospital clinical course. Dictated By: JOSE VILLEDA/ELDA Conf#: [id number] DID#: [id number] CC: ARMAND FERMIN MD; EVELIO MCKINNEY MD;*EndCC* MTDD
[2019-01-08] MEDS: morphine 2 MG INJ IV PRN ×3 (03:51→21:34)
[2019-01-08] MEDS: ALBUTEROL HFA 8 GM INHALER INH SCH ×4 (03:52→20:00)
[2019-01-08] MEDS: ALBUTEROL/IPRATROPIUM (NEB) 3 ML AMP HHN PRN ×4 (04:17→20:19)
[2019-01-08] MEDS: FUROSEMIDE 20 MG INJ IV SCH (05:27)
[2019-01-08 08:31] VITALS: BP 108/77; PULSE 73; RESP 18
[2019-01-08] MEDS: ISOSORBIDE DINITRATE 10 MG TAB PO SCH ×3 (09:00→20:50)
[2019-01-08] MEDS: CEFEPIME 1GM/50 ML (PMX) 50 ML IVPB SCH ×2 (09:07→20:51)
[2019-01-08] MEDS: NICOTINE (21 MG/24 HR) PATCH TRANSDERM SCH (09:08)
[2019-01-08] MEDS: DOCUSATE SODIUM 100 MG CAP PO SCH ×2 (09:09→20:51)
[2019-01-08] MEDS: CHLORDIAZEPOXIDE 25 MG CAP PO SCH ×2 (09:10→12:48)
[2019-01-08] MEDS: ASPIRIN (EC) 81 MG TAB PO SCH (09:10)
[2019-01-08] MEDS: FAMOTIDINE 20 MG TAB PO SCH ×2 (09:10→20:50)
[2019-01-08] MEDS: SPIRONOLACTONE 25 MG TAB PO SCH (09:10)
--- NOTE | 2019-01-08 10:13 | PN ---
DATE: 01/08/2019 SUBJECTIVE: The patient continues to have shortness of breath. The patient's urinary output has imp roved. No other acute events noted. No hemoptysis, hematemesis or hematochezia. OBJECTIVE: VITAL SIGNS: Blood pressure is 108/77, respiration 18, pulse 73, Temperature 97.7. HEENT: Head is normocephalic. NECK: Supple. HEART: Regular rate. LUNGS: Show diminished breath sounds at the base. ABDOMEN: Soft, nontender to palpation without rebound or guarding. EXTREMITIES: Negative for clubbing, cyanosis. Positive edema. DERMATOLOGIC: No rashes. MUSCULOSKELETAL: No joint effusion. NEUROLOGIC: No change in exam. MEDICATIONS: Have been reviewed. LABORATORY DATA: Has been reviewed. Urinalysis has been reviewed. IMAGING STUDIES: Have been reviewed. ASSESSMENT AND PLAN: 1. Nonoliguric kidney injury on top of chronic kidney disease stage III with previous baseline creat inine of 1.5 mg/dL. Etiology of acute kidney injury is secondary to cardiorenal syndrome. The patie nt has a FENa of less than 1% consistent with prerenal etiology. The patient's 2D echo showed an eje ction fraction of 15%, pulmonary hypertension. These findings are consistent with venous congestion which can be seen in cardiorenal syndrome. Additionally, renal function has improved with diuretic t herapy. Recommendations to continue aggressive diuretic therapy, monitor electrolytes, renal functio n closely. 2. Hyponatremia, etiology secondary to congestive heart failure, cirrhosis. Continue to limit free water intake. 3. Acute on chronic systolic heart failure. The patient is currently decompensated. Continue [facility] medical management. Continue Lasix, continue Aldactone. Will add metolazone as needed to augment diuresis. Lasix will be increased to 40 mg IV b.i.d. 4. Mineral bone disorder, monitor calcium and phosphorus levels. 5. Ascites secondary to cirrhosis, right-sided heart failure. The patient is status post paracentes is. 5. Pleural effusion, status post thoracentesis. 6. Pulmonary embolism, DVT. Continue anticoagulation therapy. 7. Acute respiratory failure secondary to congestive heart failure, pulmonary embolism. Continue me dical management. 8. Possible sepsis. Continue antibiotic therapy. 9. History of hepatitis C. Continue to monitor. 10. History of chronic obstructive pulmonary disease. Continue current medical management. 11. History of polysubstance abuse. Continue to monitor. Dictated By: NHAN NIETO DO NR/NTS Conf#: [id number] DID#: [id number] CC: EVELIO MCKINNEY MD;*EndCC*
--- NOTE | 2019-01-08 10:16 | PN ---
Date/Time of Note Date/Time of Note DATE: 01/08/19 TIME: 10:05 Assessment/Plan VTE Prophylaxis Risk score (from Nsg)>0 risk: 7 SCD applied (from Nsg): Yes Pharmacological prophylaxis: apixaban Lines/Catheters IV Catheter Type (from Nrsg): Saline Lock Urinary Cath still in place: No Assessment/Plan Hospital Course Subjective: no new complaints, dc planning in process, CT reviewed Objective : General: A&O x3, answering questions appropriately, mildly lethargic, HEENT: NC/ AT. PERRL. EOM intact Neck: supple CVS: S1, S2, RRR. no murmurs. no pain on chest wall palpation Lungs: CTA b/l. no wheezing or rhonchi Abd: Distended, firm, severe anasarca. Ext: moving all extremities, bilateral lower extremity edema with severe anasarca assessment and plan: Unfortunate 48 yo male, with a hx of drug abuse, known to us from multiple hospitalizations sent from outside ER for SOB now managed as follows : 1. Acute resp failure 2/2 #2 : improved 2. Acute on chronic Systolic HF -likely 2/2 non compliance to meds / per notes, meds were delivered to patient prior to discharge last visit and he still is stating he could not get meds -continue diuresis -ACS ruled out 3. Chronic CM with last EF 10-15% 4. Pulmonary embolism / Left subclavian thrombus / Popiteal DVT -diagnosed 12/01/18 -hold eliquis for blood tinged sputum for now 5. Sepsis -2/2 # pneumonia 6. Recurrent Pleural effusion with underlying Pneumonia -s/p R sided thoracentesis 01/05/19, 1500 cc of serosanguinous fluid drained and discarded 7. Hep C / Liver cirrhosis / Hyperbilirubinemia / anasarca / ascites -continued on lasix / spironolactone as well -s/p paracentesis with removal of 4L 01/07/19 -Refferal to hepatology at discharge 8. MARIBEL on CKD -improved 9. COPD: PRN breathing treatments as indicated, 10. Illicit drug use - Amphetamines 11. Non compliance to therapy 12. Hemoptysis : -nurses documented blood tinged sputum on admission, no further episodes since -CT reviewed Notes : Antibiotics: Cefepime FEN: Lasix IV 40 twice daily / Aldactone 25 p.o. daily / low-cholesterol low- fat diet Physical therapy: Note reviewed, patient still having balance problems. Plan: -Continue abx for HCAP, -Resume eliquis and monitor closely for bleeding -continue diuresis and supportive care -Reinforce extensive counselling on drug use and medication compliance -close monitoring -SW working on plan for recuperative care at d/c. patient lives with room mates, patient needs to be independent and cleared by cardio and renal re: diuresis Poor moth exterminator prognosis Result Diagram: 01/08/19 0508 01/08/19 0508 Results 24hrs Laboratory Tests Test 01/07/19 17:11 01/08/19 05:08 Urine Color YELLOW Urine Clarity CLEAR Urine pH 6.0 Urine Specific [place] 1.014 Urine Ketones NEGATIVE Urine Nitrite NEGATIVE Urine Bilirubin NEGATIVE Urine Urobilinogen 1+ H Urine Leukocyte Esterase NEGATIVE Urine Hemoglobin NEGATIVE Urine Random Creatinine 71.25 Urine Random Sodium < 13 L Urine Glucose NEGATIVE Urine Total Protein 13.0 H White Blood Count 12.9 #H Red Blood Count 5.24 Hemoglobin 12.9 L Hematocrit 42.9 Mean Corpuscular Volume 81.9 L Mean Corpuscular Hemoglobin 24.6 L Mean Corpuscular Hemoglobin Concent 30.1 L Red Cell Distribution Width 20.2 H Platelet Count 281 Mean Platelet Volume 9.7 Immature Granulocytes % 0.400 Neutrophils % 84.1 H Lymphocytes % 5.4 L Monocytes % 7.4 Eosinophils % 2.4 Basophils % 0.3 Nucleated Red Blood Cells % 0.0 Immature Granulocytes # 0.050 H Neutrophils # 10.8 H Lymphocytes # 0.7 L Monocytes # 1.0 H Eosinophils # 0.3 Basophils # 0.0 Nucleated Red Blood Cells # 0.0 Sodium Level 132 L Potassium Level 4.5 Chloride Level 95 L Carbon Dioxide Level 30 Anion Gap 7 Blood Urea Nitrogen 41 H Creatinine 1.08 Est Glomerular Filtrat Rate mL/min > 60 Glucose Level 99 Calcium Level 8.5 Phosphorus Level 3.6 Magnesium Level 1.9 Troponin I 0.020 Exam/Review of Systems Exam Vitals Vital Signs Date Temp Pulse Resp B/P (MAP) Pulse Ox O2 O2 Flow FiO2 Time Delivery Rate 01/08/19 2.0 09:18 01/08/19 97.7 73 18 108/77 93 08:31 (87) 01/08/19 Nasal 04:17 Cannula 5/23/19 18:41 Intake and Output 01/07/19 01/07/19 01/08/19 1515:00 23:00 07:00 IntakeIntake Total 1010 ml 570 ml 800 ml OutputOutput Total 4500 ml 500 ml 1300 ml BalanceBalance -3490 ml 70 ml -500 ml Results Results 24hrs Laboratory Tests Test 01/07/19 17:11 01/08/19 05:08 Urine Color YELLOW Urine Clarity CLEAR Urine pH 6.0 Urine Specific [place] 1.014 Urine Ketones NEGATIVE Urine Nitrite NEGATIVE Urine Bilirubin NEGATIVE Urine Urobilinogen 1+ H Urine Leukocyte Esterase NEGATIVE Urine Hemoglobin NEGATIVE Urine Random Creatinine 71.25 Urine Random Sodium < 13 L Urine Glucose NEGATIVE Urine Total Protein 13.0 H White Blood Count 12.9 #H Red Blood Count 5.24 Hemoglobin 12.9 L Hematocrit 42.9 Mean Corpuscular Volume 81.9 L Mean Corpuscular Hemoglobin 24.6 L Mean Corpuscular Hemoglobin Concent 30.1 L Red Cell Distribution Width 20.2 H Platelet Count 281 Mean Platelet Volume 9.7 Immature Granulocytes % 0.400 Neutrophils % 84.1 H Lymphocytes % 5.4 L Monocytes % 7.4 Eosinophils % 2.4 Basophils % 0.3 Nucleated Red Blood Cells % 0.0 Immature Granulocytes # 0.050 H Neutrophils # 10.8 H Lymphocytes # 0.7 L Monocytes # 1.0 H Eosinophils # 0.3 Basophils # 0.0 Nucleated Red Blood Cells # 0.0 Sodium Level 132 L Potassium Level 4.5 Chloride Level 95 L Carbon Dioxide Level 30 Anion Gap 7 Blood Urea Nitrogen 41 H Creatinine 1.08 Est Glomerular Filtrat Rate mL/min > 60 Glucose Level 99 Calcium Level 8.5 Phosphorus Level 3.6 Magnesium Level 1.9 Troponin I 0.020 Medications Medication Current Medications IV Flush (NS 3 ml) 3 ml PER PROTOCOL IV ; Start 01/05/19 at 00:30 Ondansetron HCl (Zofran Inj) 4 mg Q6H PRN IV NAUSEA/VOMITING; Start 01/05/19 at 00:30 Nitroglycerin (Nitroglycerin (Sl Tab) 0.4 Mg) 1 tab Q5M PRN SL .CHEST PAIN; Start 01/05/19 at 00:30 Acetaminophen (Tylenol Tab) 650 mg Q6H PRN PO .PAIN 1-3 OR TEMP; Start 01/05/19 at 00:30 Albuterol/ Ipratropium (Duoneb) 3 ml Q2H RESP THERAPY PRN HHN SHORTNESS OF BREATH Last administered on 01/08/19 09:22; Admin Dose 3 ML; Start 01/05/19 at 00:30 Albuterol (Ventolin Hfa) 2 puff Q6H RESP THERAPY INH Last administered on 01/08/19 03:52; Admin Dose 2 PUFF; Start 01/05/19 at 02:00 Apixaban (Eliquis) 10 mg BID PO Last administered on 01/05/19 09:03; Admin Dose 10 MG; Start 01/05/19 at 09:00; Status Hold Aspirin (Halfprin) 81 mg DAILY PO Last administered on 01/08/19 09:10; Admin Dose 81 MG; Start 01/05/19 at 09:00 Nicotine (Nicoderm 21 Mg/ 24hr) 1 patch DAILY TRANSDERM Last administered on 01/08/19 09:08; Admin Dose 1 PATCH; Start 01/05/19 at 09:00 Carvedilol (Coreg) 3.25 mg BID PO Last administered on 01/08/19 09:10; Admin Dose 3.25 MG; Start 01/05/19 at 21:00 Spironolactone (Aldactone) 25 mg DAILY PO Last administered on 01/08/19 09:10; Admin Dose 25 MG; Start 01/05/19 at 11:30 Cefepime HCl 50 ml @ 100 mls/hr Q12 IVPB Last administered on 01/08/19 09:07; Admin Dose 100 MLS/HR; Start 01/05/19 at 11:30 Docusate Sodium (Colace) 100 mg BID PO Last administered on 01/08/19 09:09; Admin Dose 100 MG; Start 01/05/19 at 11:30 Famotidine (Pepcid) 20 mg BID PO Last administered on 01/08/19 09:10; Admin Dose 20 MG; Start 01/05/19 at 11:30 Chlordiazepoxide (Librium) 25 mg TID PO Last administered on 01/08/19 09:10; Admin Dose 25 MG; Start 01/07/19 at 21:00; Stop 01/08/19 at 20:59 Lorazepam (Ativan) 1 mg Q6 PRN IV agitation / withdrawal Last administered on 01/08/19at 00:10; Admin Dose 1 MG; Start 01/05/19 at 16:00 Morphine Sulfate (morphine) 2 mg Q3 PRN IV SEVERE PAIN LEVEL 7-10 Last administered on 01/08/19at 03:51; Admin Dose 2 MG; Start 01/05/19 at 16:00 Hydralazine HCl (Apresoline) 10 mg Q8 PO Last administered on 01/08/19at 05:27; Admin Dose 10 MG; Start 01/07/19 at 22:00 Isosorbide Dinitrate (Isordil) 10 mg TID PO ; Start 01/08/19 at 09:00 Furosemide (Lasix) 40 mg BID DIURETICS IV ; Start 01/08/19 at 18:00 ARMAND FERMIN January 08, 2019 10:16
[2019-01-08] MEDS: APIXABAN 5 MG TABLET PO SCH ×2 (12:48→20:49)
[2019-01-08 13:28] VITALS: BP 109/81; PULSE 86; RESP 18
[2019-01-08 15:07] VITALS: BP 125/80; PULSE 87
--- NOTE | 2019-01-08 16:37 | CONS ---
Assessment/Plan Assessment/Plan Hospital Course (Demo Recall) IMPRESSION: 1. CHF exacerbation, systolic, acute on chronic. 2. Cardiomyopathy with severely depressed left ventricular ejection fraction, last EF approximately 15% to 20%. 3. Substance abuse by tox screen known with methamphetamine. 4. Cirrhosis with ascites requiring large volume paracenteses. 5. Pleural effusion, status post thoracentesis. 6. History of DVT with Eliquis currently held and a history of pulmonary embolism secondary to that. 7. Renal failure-improved today 8. Mild coagulopathy. 9. Hepatitis C. 10. COPD. 11.chest pain-intermittent. Trop neg x 3 Recc: -Tele -serial ecg's -Continue low dose coreg/hydralazine/isordil as tolerated for treatment of cardiomopathy and chest pain -Continue aldactone/lasix with currently improved creatnine -Contineu asa -Nicotine patch Consultation Date/Type/Reason Admit Date/Time January 04, 2019 at 23:21 Initial Consult Date 01/07/19 Type of Consult Cardiology Reason for Consultation CHF Requesting Provider: ARMAND FERMIN Date/Time of Note DATE: 01/08/19 TIME: 16:33 Exam/Review of Systems Vital Signs Vitals Vital Signs Date Temp Pulse Resp B/P (MAP) Pulse Ox O2 O2 Flow FiO2 Time Delivery Rate 01/08/19 100 2.0 15:58 01/08/19 86 22 21 15:52 01/08/19 125/80 15:07 (95) 01/08/19 97.5 13:28 01/08/19 Nasal 09:22 Cannula Intake and Output 01/07/19 01/07/19 01/08/19 1414:59 22:59 06:59 IntakeIntake Total 1010 ml 570 ml 800 ml OutputOutput Total 4500 ml 500 ml 1300 ml BalanceBalance -3490 ml 70 ml -500 ml Exam Exam Review of Systems: CONSTITUTIONAL: No fevers, chills. PULMONARY: No sob CARDIOVASCULAR: chest pain GASTROINTESTINAL: abd pain GENITOURINARY: No hematuria/dysuria. MUSCULOSKELETAL: back pain PSYCHIATRIC: The patient denies depression. NEUROLOGIC: No weakness Constitutional: alert, oriented Psych: no complaints Head: normocephalic ENMT: mucosa pink and moist Neck: supple, jvd (9 cm water) Respiratory: clear to auscultation Cardiovascular: regular rate and rhythm Gastrointestinal: soft, non-tender Musculoskeletal: muscle tone (normal) Extremities: edema (none) Neurological: other (No focal deficits) Labs Result Diagram: 01/08/19 0508 01/08/19 0508 Results 24hrs Laboratory Tests Test 01/07/19 17:11 01/08/19 05:08 Urine Color YELLOW Urine Clarity CLEAR Urine pH 6.0 Urine Specific [place] 1.014 Urine Ketones NEGATIVE Urine Nitrite NEGATIVE Urine Bilirubin NEGATIVE Urine Urobilinogen 1+ H Urine Leukocyte Esterase NEGATIVE Urine Hemoglobin NEGATIVE Urine Random Creatinine 71 Urine Random Sodium < 13 L Urine Microalbumin 0.7 Urine Microalbumin/Creatinine Ratio 10 Urine Glucose NEGATIVE Urine Total Protein 13.0 H White Blood Count 12.9 #H Red Blood Count 5.24 Hemoglobin 12.9 L Hematocrit 42.9 Mean Corpuscular Volume 81.9 L Mean Corpuscular Hemoglobin 24.6 L Mean Corpuscular Hemoglobin Concent 30.1 L Red Cell Distribution Width 20.2 H Platelet Count 281 Mean Platelet Volume 9.7 Immature Granulocytes % 0.400 Neutrophils % 84.1 H Lymphocytes % 5.4 L Monocytes % 7.4 Eosinophils % 2.4 Basophils % 0.3 Nucleated Red Blood Cells % 0.0 Immature Granulocytes # 0.050 H Neutrophils # 10.8 H Lymphocytes # 0.7 L Monocytes # 1.0 H Eosinophils # 0.3 Basophils # 0.0 Nucleated Red Blood Cells # 0.0 Sodium Level 132 L Potassium Level 4.5 Chloride Level 95 L Carbon Dioxide Level 30 Anion Gap 7 Blood Urea Nitrogen 41 H Creatinine 1.08 Est Glomerular Filtrat Rate mL/min > 60 Glucose Level 99 Calcium Level 8.5 Phosphorus Level 3.6 Magnesium Level 1.9 Troponin I 0.020 Medications Medications Current Medications IV Flush (NS 3 ml) 3 ml PER PROTOCOL IV ; Start 01/05/19 at 00:30 Ondansetron HCl (Zofran Inj) 4 mg Q6H PRN IV NAUSEA/VOMITING; Start 01/05/19 at 00:30 Nitroglycerin (Nitroglycerin (Sl Tab) 0.4 Mg) 1 tab Q5M PRN SL .CHEST PAIN; Start 01/05/19 at 00:30 Acetaminophen (Tylenol Tab) 650 mg Q6H PRN PO .PAIN 1-3 OR TEMP; Start 01/05/19 at 00:30 Albuterol/ Ipratropium (Duoneb) 3 ml Q2H RESP THERAPY PRN HHN SHORTNESS OF BREATH Last administered on 01/08/19 15:52; Admin Dose 3 ML; Start 01/05/19 at 00:30 Albuterol (Ventolin Hfa) 2 puff Q6H RESP THERAPY INH Last administered on 01/08/19 03:52; Admin Dose 2 PUFF; Start 01/05/19 at 02:00 Aspirin (Halfprin) 81 mg DAILY PO Last administered on 01/08/19 09:10; Admin Dose 81 MG; Start 01/05/19 at 09:00 Nicotine (Nicoderm 21 Mg/ 24hr) 1 patch DAILY TRANSDERM Last administered on 01/08/19 09:08; Admin Dose 1 PATCH; Start 01/05/19 at 09:00 Carvedilol (Coreg) 3.25 mg BID PO Last administered on 01/08/19 09:10; Admin Dose 3.25 MG; Start 01/05/19 at 21:00 Spironolactone (Aldactone) 25 mg DAILY PO Last administered on 01/08/19 09:10; Admin Dose 25 MG; Start 01/05/19 at 11:30 Cefepime HCl 50 ml @ 100 mls/hr Q12 IVPB Last administered on 01/08/19 09:07; Admin Dose 100 MLS/HR; Start 01/05/19 at 11:30 Docusate Sodium (Colace) 100 mg BID PO Last administered on 01/08/19 09:09; Admin Dose 100 MG; Start 01/05/19 at 11:30 Famotidine (Pepcid) 20 mg BID PO Last administered on 01/08/19 09:10; Admin Dose 20 MG; Start 01/05/19 at 11:30 Chlordiazepoxide (Librium) 25 mg TID PO Last administered on 01/08/19 12:48; Admin Dose 25 MG; Start 01/07/19 at 21:00; Stop 01/08/19 at 20:59 Lorazepam (Ativan) 1 mg Q6 PRN IV agitation / withdrawal Last administered on 01/08/19 00:10; Admin Dose 1 MG; Start 01/05/19 at 16:00 Morphine Sulfate (morphine) 2 mg Q3 PRN IV SEVERE PAIN LEVEL 7-10 Last administered on 01/08/19at 15:08; Admin Dose 2 MG; Start 01/05/19 at 16:00 Hydralazine HCl (Apresoline) 10 mg Q8 PO Last administered on 01/08/19at 05:27; Admin Dose 10 MG; Start 01/07/19 at 22:00 Isosorbide Dinitrate (Isordil) 10 mg TID PO ; Start 01/08/19 at 09:00 Furosemide (Lasix) 40 mg BID DIURETICS IV ; Start 01/08/19 at 18:00 Apixaban (Eliquis) 5 mg BID PO Last administered on 01/08/19at 12:48; Admin Dose 5 MG; Start 01/08/19 at 10:30 JOSE AGGARWAL January 08, 2019 16:37
[2019-01-08] MEDS: FUROSEMIDE 40 MG INJ IV SCH (18:01)
--- NOTE | 2019-01-08 18:54 | RADRPT ---
Vent Rate: 84 bpm RR Interval: 712 msec GA Interval: 173 msec QRS Duration: 77 msec QT Interval: 390 msec QTC Interval: 462 msec P-R-T [place]: 78 - 67 - 81 degrees Sinus rhythm...normal P axis, V-rate 50- 99 Anterior infarct, old...Q >40mS, abnormal ST-T, V2-V5 Electronically Signed By: Jef Vazquez
[2019-01-08 20:00] VITALS: BP 122/86; PULSE 89; RESP 18
[2019-01-09] MEDS: ALBUTEROL/IPRATROPIUM (NEB) 3 ML AMP HHN PRN ×4 (01:23→20:39)
[2019-01-09] MEDS: ALBUTEROL HFA 8 GM INHALER INH SCH ×4 (01:36→20:00)
[2019-01-09] MEDS: morphine 2 MG INJ IV PRN ×6 (01:36→23:09)
[2019-01-09 01:38] VITALS: BP 110/67; PULSE 88; RESP 18
[2019-01-09] MEDS: FUROSEMIDE 40 MG INJ IV SCH ×2 (06:19→17:32)
[2019-01-09 08:06] VITALS: BP 121/79; PULSE 96; RESP 28
[2019-01-09] MEDS: CEFEPIME 1GM/50 ML (PMX) 50 ML IVPB SCH ×2 (08:25→21:10)
[2019-01-09] MEDS: NICOTINE (21 MG/24 HR) PATCH TRANSDERM SCH (08:25)
[2019-01-09] MEDS: DOCUSATE SODIUM 100 MG CAP PO SCH ×2 (08:26→21:10)
[2019-01-09] MEDS: SPIRONOLACTONE 25 MG TAB PO SCH (08:26)
[2019-01-09] MEDS: FAMOTIDINE 20 MG TAB PO SCH ×2 (08:26→21:12)
[2019-01-09] MEDS: ASPIRIN (EC) 81 MG TAB PO SCH (08:27)
[2019-01-09] MEDS: ISOSORBIDE DINITRATE 10 MG TAB PO SCH ×3 (08:27→21:12)
--- NOTE | 2019-01-09 09:32 | PN ---
DATE: 01/09/2019 SUBJECTIVE: The patient is stable. No events overnight. OBJECTIVE: VITAL SIGNS: Blood pressure is 121/79, respirations 28, pulse 96, temperature 97.8. HEENT: Head is normocephalic. NECK: Supple. HEART: Regular rate. LUNGS: Show diminished breath sounds at the base. ABDOMEN: Soft, nontender to palpation without rebound or guarding. EXTREMITIES: Negative for clubbing, cyanosis. Positive edema. DERMATOLOGIC: No rashes. MUSCULOSKELETAL: No joint effusions. NEUROLOGIC: No change in exam. MEDICATIONS: Reviewed. LABORATORY DATA: Has been reviewed. ASSESSMENT AND PLAN: 1. Nonoliguric acute kidney injury on top of chronic kidney disease stage III with previous baseline creatinine of 1.5 mg/dL. Etiology of acute kidney injury is secondary to cardiorenal syndrome. The patient's renal function has improved with diuretic therapy. Continue current treatment plan. 2. Hyponatremia secondary to congestive heart failure, cirrhosis. Continue to limit free water inta ke. 3. Acute on chronic heart failure. The patient remains compensated. Continue medical management. Continue Lasix, Aldactone. Will add metolazone as needed to augment diuresis. 4. Mineral bone disorder. Monitor calcium and phosphorus levels. 5. Ascites secondary to cirrhosis, right-sided heart failure. The patient is status post paracentes is. Continue to monitor. 6. Pleural effusion, status post thoracentesis. 7. Pulmonary embolism, DVT. Continue anticoagulation. 8. Acute respiratory failure secondary to congestive heart failure and pulmonary embolism. Continue medical management. 9. History of hepatitis C. 10. Chronic obstructive pulmonary disease. 11. Polysubstance abuse. Continue to monitor. Dictated By: NHAN ESPINOZA/NTS Conf#: [id number] DID#: [id number] CC: EVELIO MCKINNEY MD;*EndCC*
[2019-01-09] MEDS: APIXABAN 5 MG TABLET PO SCH ×2 (12:18→21:12)
--- NOTE | 2019-01-09 14:08 | PN ---
Date/Time of Note Date/Time of Note DATE: 01/09/19 TIME: 13:57 Assessment/Plan VTE Prophylaxis Risk score (from Ns)>0 risk: 4 SCD applied (from Ns): Yes (ordered) Pharmacological prophylaxis: other (eliquis) Lines/Catheters IV Catheter Type (from Nrs): Mid Line Urinary Cath still in place: No Assessment/Plan Hospital Course 1. Acute resp failure secondary to CHF - continue diuresis - Reports worse breathing. - f/u CXR 2. Acute on chronic Systolic HF suspect medication noncompliance. - ACS ruled out - continue inpatient medications 3. Chronic CM with last EF 10-15% - continue medical optimization 4. Pulmonary embolism / Left subclavian thrombus / Popiteal DVT -diagnosed 12/01/18 -No further reports of blood tinged sputum - eliquis was resumed. Monitor H&H and s/s of bleeding 5. Sepsis - continue abx 6. Recurrent Pleural effusion with underlying Pneumonia -s/p R sided thoracentesis 01/05/19, 1500 cc of serosanguinous fluid drained and discarded 7. Hep C / Liver cirrhosis / Hyperbilirubinemia / anasarca / ascites -continued on lasix / spironolactone -s/p paracentesis with removal of 4L 01/07/19 - advised for hepatology referral upon d/c 8. MARIBEL on CKD -improved 9. COPD - PRN breathing treatments 10. Illicit drug use - Amphetamines - Cessation was advised 11. Non compliance to therapy - Patient advised on compliance 12. Hemoptysis - resolved Dispo/Plan: f/u CXR for reported worse breathing. f/u case management for resources upon d/c. Discussed POC with Dr. Price Result Diagram: 01/09/19 0658 01/09/19 0658 Results 24hrs Laboratory Tests Test 01/09/19 06:58 White Blood Count 12.0 H Red Blood Count 5.81 Hemoglobin 14.0 Hematocrit 48.7 Mean Corpuscular Volume 83.8 Mean Corpuscular Hemoglobin 24.1 L Mean Corpuscular Hemoglobin Concent 28.7 L Red Cell Distribution Width 20.9 H Platelet Count 259 Mean Platelet Volume 9.4 Immature Granulocytes % 0.600 H Neutrophils % 76.2 Lymphocytes % 8.1 L Monocytes % 10.4 Eosinophils % 4.5 Basophils % 0.2 Nucleated Red Blood Cells % 0.0 Immature Granulocytes # 0.070 H Neutrophils # 9.2 H Lymphocytes # 1.0 Monocytes # 1.3 H Eosinophils # 0.5 Basophils # 0.0 Nucleated Red Blood Cells # 0.0 Sodium Level 134 L Potassium Level 4.7 Chloride Level 95 L Carbon Dioxide Level 30 Anion Gap 9 Blood Urea Nitrogen 27 #H Creatinine 0.86 Est Glomerular Filtrat Rate mL/min > 60 Glucose Level 93 Calcium Level 8.7 Phosphorus Level 3.2 Magnesium Level 1.9 Subjective 24 Hr Interval Summary Free Text/Dictation no s/s of distress. reports little difficulty with breathing more notably on exertion Exam/Review of Systems Exam Vitals Vital Signs Date Temp Pulse Resp B/P (MAP) Pulse Ox O2 O2 Flow FiO2 Time Delivery Rate 01/09/19 Nasal 2.0 10:40 Cannula 01/09/19 94 26 96 10:02 01/09/19 97.8 121/79 08:06 (93) 01/08/19 21 20:19 Intake and Output 01/08/19 01/08/19 01/09/19 1515:00 23:00 07:00 IntakeIntake Total 2380 ml 530 ml OutputOutput Total 550 ml 1475 ml 800 ml BalanceBalance 1830 ml -945 ml -800 ml Constitutional: alert, oriented Neck: non-tender Respiratory: diminished breath sounds Cardiovascular: other (regular rate ) Musculoskeletal: swelling (minimal ble ) Neurological: nl mental status, nl speech Results Results 24hrs Laboratory Tests Test 01/09/19 06:58 White Blood Count 12.0 H Red Blood Count 5.81 Hemoglobin 14.0 Hematocrit 48.7 Mean Corpuscular Volume 83.8 Mean Corpuscular Hemoglobin 24.1 L Mean Corpuscular Hemoglobin Concent 28.7 L Red Cell Distribution Width 20.9 H Platelet Count 259 Mean Platelet Volume 9.4 Immature Granulocytes % 0.600 H Neutrophils % 76.2 Lymphocytes % 8.1 L Monocytes % 10.4 Eosinophils % 4.5 Basophils % 0.2 Nucleated Red Blood Cells % 0.0 Immature Granulocytes # 0.070 H Neutrophils # 9.2 H Lymphocytes # 1.0 Monocytes # 1.3 H Eosinophils # 0.5 Basophils # 0.0 Nucleated Red Blood Cells # 0.0 Sodium Level 134 L Potassium Level 4.7 Chloride Level 95 L Carbon Dioxide Level 30 Anion Gap 9 Blood Urea Nitrogen 27 #H Creatinine 0.86 Est Glomerular Filtrat Rate mL/min > 60 Glucose Level 93 Calcium Level 8.7 Phosphorus Level 3.2 Magnesium Level 1.9 Medications Medication Current Medications IV Flush (NS 3 ml) 3 ml PER PROTOCOL IV ; Start 01/05/19 at 00:30 Ondansetron HCl (Zofran Inj) 4 mg Q6H PRN IV NAUSEA/VOMITING; Start 01/05/19 at 00:30 Nitroglycerin (Nitroglycerin (Sl Tab) 0.4 Mg) 1 tab Q5M PRN SL .CHEST PAIN; Start 01/05/19 at 00:30 Acetaminophen (Tylenol Tab) 650 mg Q6H PRN PO .PAIN 1-3 OR TEMP; Start 01/05/19 at 00:30 Albuterol/ Ipratropium (Duoneb) 3 ml Q2H RESP THERAPY PRN HHN SHORTNESS OF BREATH Last administered on 01/09/19 09:56; Admin Dose 3 ML; Start 01/05/19 at 00:30 Albuterol (Ventolin Hfa) 2 puff Q6H RESP THERAPY INH Last administered on 01/09 12:17; Admin Dose 2 PUFF; Start 01/05/19 at 02:00 Aspirin (Halfprin) 81 mg DAILY PO Last administered on 01/09/19 08:27; Admin Dose 81 MG; Start 01/05/19 at 09:00 Nicotine (Nicoderm 21 Mg/ 24hr) 1 patch DAILY TRANSDERM Last administered on 01/09/19 08:25; Admin Dose 1 PATCH; Start 01/05/19 at 09:00 Carvedilol (Coreg) 3.25 mg BID PO Last administered on 01/09/19 08:27; Admin Dose 3.25 MG; Start 01/05/19 at 21:00 Spironolactone (Aldactone) 25 mg DAILY PO Last administered on 01/09/19 08:26; Admin Dose 25 MG; Start 01/05/19 at 11:30 Cefepime HCl 50 ml @ 100 mls/hr Q12 IVPB Last administered on 01/09/19 08:25; Admin Dose 100 MLS/HR; Start 01/05/19 at 11:30 Docusate Sodium (Colace) 100 mg BID PO Last administered on 01/09/19 08:26; Admin Dose 100 MG; Start 01/05/19 at 11:30 Famotidine (Pepcid) 20 mg BID PO Last administered on 01/09/19 08:26; Admin Dose 20 MG; Start 01/05/19 at 11:30 Lorazepam (Ativan) 1 mg Q6 PRN IV agitation / withdrawal Last administered on 01/08/19 00:10; Admin Dose 1 MG; Start 01/05/19 at 16:00 Morphine Sulfate (morphine) 2 mg Q3 PRN IV SEVERE PAIN LEVEL 7-10 Last administered on 01/09/19 12:34; Admin Dose 2 MG; Start 01/05/19 at 16:00 Hydralazine HCl (Apresoline) 10 mg Q8 PO Last administered on 01/09/19 12:18; Admin Dose 10 MG; Start 01/07/19 at 22:00 Isosorbide Dinitrate (Isordil) 10 mg TID PO Last administered on 01/09/19 12:18; Admin Dose 10 MG; Start 01/08/19 at 09:00 Furosemide (Lasix) 40 mg BID DIURETICS IV Last administered on 01/09/19 06:19; Admin Dose 40 MG; Start 01/08/19 at 18:00 Apixaban (Eliquis) 5 mg BID PO Last administered on 01/09/19 12:18; Admin Dose 5 MG; Start 01/08/19 at 10:30 BEV TITUS NP January 09, 2019 14:08
[2019-01-09 15:24] VITALS: BP 112/69; PULSE 90; RESP 20
--- NOTE | 2019-01-09 16:43 | CONS ---
Assessment/Plan Assessment/Plan Hospital Course (Demo Recall) IMPRESSION: 1. CHF exacerbation, systolic, acute on chronic. 2. Cardiomyopathy with severely depressed left ventricular ejection fraction, last EF approximately 15% to 20%. 3. Substance abuse by tox screen known with methamphetamine. 4. Cirrhosis with ascites requiring large volume paracenteses. 5. Pleural effusion, status post thoracentesis. 6. History of DVT with Eliquis currently held and a history of pulmonary embolism secondary to that. 7. Renal failure-improved today 8. Mild coagulopathy. 9. Hepatitis C. 10. COPD. 11.chest pain-intermittent. Trop neg x 3 Recc: -Tele -serial ecg's -Continue low dose coreg/hydralazine/isordil as tolerated for treatment of cardiomopathy and chest pain -Continue aldactone/lasix with currently improved creatnine -Contineu asa -Nicotine patch Consultation Date/Type/Reason Admit Date/Time January 04, 2019 at 23:21 Initial Consult Date 01/07/19 Type of Consult Cardiology Reason for Consultation CHF Requesting Provider: ARMAND FERMIN Date/Time of Note DATE: 01/09/19 TIME: 16:41 Exam/Review of Systems Vital Signs Vitals Vital Signs Date Temp Pulse Resp B/P (MAP) Pulse Ox O2 O2 Flow FiO2 Time Delivery Rate 01/09/19 98.0 90 20 112/69 94 15:24 (83) 01/09/19 Nasal 2.0 10:40 Cannula 01/08/19 21 20:19 Intake and Output 01/08/19 01/08/19 01/09/19 1515:00 23:00 07:00 IntakeIntake Total 2380 ml 530 ml OutputOutput Total 550 ml 1475 ml 800 ml BalanceBalance 1830 ml -945 ml -800 ml Exam Exam Review of Systems: CONSTITUTIONAL: No fevers, chills. PULMONARY: No sob CARDIOVASCULAR: No chest pain/palpitations GASTROINTESTINAL: No nausea/vomiting. GENITOURINARY: No hematuria/dysuria. MUSCULOSKELETAL: No myagias/arthalgias. PSYCHIATRIC: The patient denies depression. NEUROLOGIC: No weakness Constitutional: alert, oriented Psych: no complaints Head: normocephalic ENMT: mucosa pink and moist Neck: supple, jvd (9 cm water) Respiratory: diminished breath sounds (at bases/B) Cardiovascular: regular rate and rhythm Gastrointestinal: soft, non-tender Musculoskeletal: muscle tone (normal) Extremities: edema (LE bilateral with chronic skin changes) Neurological: other (no focal defcits) Labs Result Diagram: 01/09/1958 01/09/19 0658 Results 24hrs Laboratory Tests Test 01/09/19 06:58 White Blood Count 12.0 H Red Blood Count 5.81 Hemoglobin 14.0 Hematocrit 48.7 Mean Corpuscular Volume 83.8 Mean Corpuscular Hemoglobin 24.1 L Mean Corpuscular Hemoglobin Concent 28.7 L Red Cell Distribution Width 20.9 H Platelet Count 259 Mean Platelet Volume 9.4 Immature Granulocytes % 0.600 H Neutrophils % 76.2 Lymphocytes % 8.1 L Monocytes % 10.4 Eosinophils % 4.5 Basophils % 0.2 Nucleated Red Blood Cells % 0.0 Immature Granulocytes # 0.070 H Neutrophils # 9.2 H Lymphocytes # 1.0 Monocytes # 1.3 H Eosinophils # 0.5 Basophils # 0.0 Nucleated Red Blood Cells # 0.0 Sodium Level 134 L Potassium Level 4.7 Chloride Level 95 L Carbon Dioxide Level 30 Anion Gap 9 Blood Urea Nitrogen 27 #H Creatinine 0.86 Est Glomerular Filtrat Rate mL/min > 60 Glucose Level 93 Calcium Level 8.7 Phosphorus Level 3.2 Magnesium Level 1.9 Medications Medications Current Medications IV Flush (NS 3 ml) 3 ml PER PROTOCOL IV ; Start 01/05/19 at 00:30 Ondansetron HCl (Zofran Inj) 4 mg Q6H PRN IV NAUSEA/VOMITING; Start 01/05/19 at 00:30 Nitroglycerin (Nitroglycerin (Sl Tab) 0.4 Mg) 1 tab Q5M PRN SL .CHEST PAIN; Start 01/05/19 at 00:30 Acetaminophen (Tylenol Tab) 650 mg Q6H PRN PO .PAIN 1-3 OR TEMP; Start 01/05/19 at 00:30 Albuterol/ Ipratropium (Duoneb) 3 ml Q2H RESP THERAPY PRN HHN SHORTNESS OF BREATH Last administered on 01/09/19at 09:56; Admin Dose 3 ML; Start 01/05/19 at 00:30 Albuterol (Ventolin Hfa) 2 puff Q6H RESP THERAPY INH Last administered on 5/25/19at 12:17; Admin Dose 2 PUFF; Start 01/05/19 at 02:00 Aspirin (Halfprin) 81 mg DAILY PO Last administered on 01/09/19 08:27; Admin Dose 81 MG; Start 01/05/19 at 09:00 Nicotine (Nicoderm 21 Mg/ 24hr) 1 patch DAILY TRANSDERM Last administered on 01/09/19 08:25; Admin Dose 1 PATCH; Start 01/05/19 at 09:00 Carvedilol (Coreg) 3.25 mg BID PO Last administered on 01/09/19 08:27; Admin Dose 3.25 MG; Start 01/05/19 at 21:00 Spironolactone (Aldactone) 25 mg DAILY PO Last administered on 01/09/19 08:26; Admin Dose 25 MG; Start 01/05/19 at 11:30 Cefepime HCl 50 ml @ 100 mls/hr Q12 IVPB Last administered on 01/09/19 08:25; Admin Dose 100 MLS/HR; Start 01/05/19 at 11:30 Docusate Sodium (Colace) 100 mg BID PO Last administered on 01/09/19 08:26; Admin Dose 100 MG; Start 01/05/19 at 11:30 Famotidine (Pepcid) 20 mg BID PO Last administered on 01/09/19 08:26; Admin Dose 20 MG; Start 01/05/19 at 11:30 Lorazepam (Ativan) 1 mg Q6 PRN IV agitation / withdrawal Last administered on 01/08/19 00:10; Admin Dose 1 MG; Start 01/05/19 at 16:00 Morphine Sulfate (morphine) 2 mg Q3 PRN IV SEVERE PAIN LEVEL 7-10 Last administered on 01/09/19 15:44; Admin Dose 2 MG; Start 01/05/19 at 16:00 Hydralazine HCl (Apresoline) 10 mg Q8 PO Last administered on 01/09/19 12:18; Admin Dose 10 MG; Start 01/07/19 at 22:00 Isosorbide Dinitrate (Isordil) 10 mg TID PO Last administered on 01/09/19 12:18; Admin Dose 10 MG; Start 01/08/19 at 09:00 Furosemide (Lasix) 40 mg BID DIURETICS IV Last administered on 01/09/19at 06:19; Admin Dose 40 MG; Start 01/08/19 at 18:00 Apixaban (Eliquis) 5 mg BID PO Last administered on 01/09/19at 12:18; Admin Dose 5 MG; Start 01/08/19 at 10:30 JOSE AGGARWAL January 09, 2019 16:43
[2019-01-09 19:36] VITALS: BP 121/67; PULSE 84; RESP 20
[2019-01-10] MEDS: ALBUTEROL/IPRATROPIUM (NEB) 3 ML AMP HHN PRN ×3 (01:55→21:53)
[2019-01-10 02:00] VITALS: BP 109/65; PULSE 93; RESP 20
[2019-01-10] MEDS: ALBUTEROL HFA 8 GM INHALER INH SCH ×4 (02:00→20:03)
[2019-01-10] MEDS: LORAZEPAM 2 MG INJ IV PRN (02:26)
[2019-01-10] MEDS: FUROSEMIDE 40 MG INJ IV SCH ×2 (06:18→17:55)
[2019-01-10] MEDS: ASPIRIN (EC) 81 MG TAB PO SCH (08:49)
[2019-01-10] MEDS: DOCUSATE SODIUM 100 MG CAP PO SCH ×2 (08:49→20:34)
[2019-01-10] MEDS: FAMOTIDINE 20 MG TAB PO SCH ×2 (08:49→20:35)
[2019-01-10] MEDS: APIXABAN 5 MG TABLET PO SCH (08:49)
[2019-01-10] MEDS: SPIRONOLACTONE 25 MG TAB PO SCH (08:49)
[2019-01-10] MEDS: CEFEPIME 1GM/50 ML (PMX) 50 ML IVPB SCH ×2 (08:50→20:33)
[2019-01-10] MEDS: NICOTINE (21 MG/24 HR) PATCH TRANSDERM SCH (08:53)
[2019-01-10] MEDS: ISOSORBIDE DINITRATE 10 MG TAB PO SCH ×3 (08:54→20:35)
[2019-01-10] MEDS: morphine 2 MG INJ IV PRN ×4 (09:01→23:26)
[2019-01-10] MEDS: ACETAZOLAMIDE 500 MG INJ IV SCH (10:08)
--- NOTE | 2019-01-10 11:07 | PN ---
DATE: 01/10/2019 SUBJECTIVE: The patient is stable. No events overnight. OBJECTIVE: VITAL SIGNS: Blood pressure is 109/65, respiratory rate 20, pulse 93, temperature 98.0. HEENT: Head is normocephalic. NECK: Supple. HEART: Regular rate. LUNGS: Show diminished breath sounds at the base. ABDOMEN: Soft, nontender to palpation without rebound or guarding. EXTREMITIES: Negative for clubbing, cyanosis. Positive edema. DERMATOLOGIC: No rashes. MUSCULOSKELETAL: No joint effusion. NEUROLOGIC: No change in exam. MEDICATIONS: Reviewed. LABORATORY DATA: Has been reviewed. ASSESSMENT AND PLAN: 1. Nonoliguric acute kidney injury on top of chronic kidney disease stage III with previous baseline creatinine of 1.5 mg/dL. Etiology of acute kidney injury is secondary to cardiorenal syndrome. The patient's renal function improved with diuretic therapy. Will continue. 2. Hyponatremia secondary to congestive heart failure, cirrhosis. Continue to monitor. Limit free water intake. 3. Alkalosis secondary to diuretic therapy. The patient will be started on Diamox. Will continue t o monitor. 4. Acute systolic, diastolic heart failure. The patient remains decompensated. Continue current di uretic regimen of Lasix, Aldactone. Will add Diamox to augment diuresis. 5. Mineral bone disorder. Monitor calcium and phosphorus levels. 6. Ascites secondary to cirrhosis, right-sided heart failure. The patient is status post paracentes is. 7. Pleural effusion, status post thoracentesis. 8. Pulmonary embolism, DVT. Continue medical management. 9. Acute respiratory failure. Etiology is multifactorial secondary to congestive heart failure, pul monary embolism. Continue current treatment plan. 10. History of hepatitis C. 11. History of chronic obstructive pulmonary disease. 12. Polysubstance abuse. Continue to monitor. Dictated By: NHAN NIETO DO NR/NTS Conf#: [id number] DID#: [id number] CC: EVELIO MCKINNEY MD;*EndCC*
--- NOTE | 2019-01-10 11:27 | PN ---
Date/Time of Note Date/Time of Note DATE: 01/10/19 TIME: 11:19 Assessment/Plan VTE Prophylaxis Risk score (from Ns)>0 risk: 7 SCD applied (from Ns): Yes Pharmacological prophylaxis: NA/contraindicated (possible thoracentesis), other Pharm contraindication: other Lines/Catheters [facility] Peripheral IV Urinary Cath still in place: No Assessment/Plan Hospital Course 1. Acute resp failure secondary to CHF - continue diuresis - Reports worse breathing. - f/u CXR with moderate right pleural effusion. Patient reports receiving 4 thoracentesis in the past 2 weeks. - Possible thoracentesis for pleural effusion (on anticoagulation) 2. Acute on chronic Systolic HF suspect medication noncompliance. - ACS ruled out - continue inpatient medications 3. Chronic CM with last EF 10-15% - continue medical optimization 4. Pulmonary embolism / Left subclavian thrombus / Popiteal DVT -diagnosed 12/01/18 -No further reports of blood tinged sputum - eliquis was resumed. Monitor H&H and s/s of bleeding 5. Sepsis - continue abx 6. Recurrent Pleural effusion with underlying Pneumonia -s/p R sided thoracentesis 01/05/19, 1500 cc of serosanguinous fluid drained and discarded 7. Hep C / Liver cirrhosis / Hyperbilirubinemia / anasarca / ascites -continued on lasix / spironolactone -s/p paracentesis with removal of 4L 01/07/19 - advised for hepatology referral upon d/c 8. MARIBEL on CKD -improved 9. COPD - PRN breathing treatments 10. Illicit drug use - Amphetamines - Cessation was advised 11. Non compliance to therapy - Patient advised on compliance 12. Hemoptysis - resolved Dispo/Plan: Transfer to telemetry. Will hold eliquis today for possible thoracentesis in the next 24-48 hrs (will resume eliquis if breathing better and no thoracentesis). Will follow up with radiology concerning this. Continue diuresis for now Discussed POC with Dr. Price Result Diagram: 01/10/198 01/10/19427 Results 24hrs Laboratory Tests Test 01/10/19 04:28 White Blood Count 9.4 # Red Blood Count 5.17 Hemoglobin 12.6 L Hematocrit 43.1 Mean Corpuscular Volume 83.4 Mean Corpuscular Hemoglobin 24.4 L Mean Corpuscular Hemoglobin Concent 29.2 L Red Cell Distribution Width 19.8 H Platelet Count 266 Mean Platelet Volume 9.4 Immature Granulocytes % 0.700 H Neutrophils % 67.0 Lymphocytes % 12.0 L Monocytes % 12.9 H Eosinophils % 7.1 H Basophils % 0.3 Nucleated Red Blood Cells % 0.0 Immature Granulocytes # 0.070 H Neutrophils # 6.3 Lymphocytes # 1.1 Monocytes # 1.2 H Eosinophils # 0.7 H Basophils # 0.0 Nucleated Red Blood Cells # 0.0 Sodium Level 134 L Potassium Level 4.8 Chloride Level 94 L Carbon Dioxide Level 33 H Anion Gap 7 Blood Urea Nitrogen 23 H Creatinine 0.84 Est Glomerular Filtrat Rate mL/min > 60 Glucose Level 105 Calcium Level 8.8 Phosphorus Level 3.2 Magnesium Level 1.9 Subjective 24 Hr Interval Summary Free Text/Dictation Still noted with shortness of breath. Denies any chest pain. Exam/Review of Systems Exam Vitals Vital Signs Date Temp Pulse Resp B/P (MAP) Pulse Ox O2 O2 Flow FiO2 Time Delivery Rate 01/10/19 2.0 11:07 01/10/19 92 96 Nasal 11:07 Cannula 01/10/19 98.0 20 109/65 02:00 (80) 01/08/19 21 20:19 Intake and Output 01/09/19 01/09/19 01/10/19 1515:00 23:00 07:00 IntakeIntake Total 2980 ml 960 ml 50 ml OutputOutput Total 2100 ml 2000 ml 300 ml BalanceBalance 880 ml -1040 ml -250 ml Constitutional: alert, oriented Psych: nl mood/affect Head: normocephalic Neck: supple, non-tender Respiratory: diminished breath sounds Cardiovascular: other (regular rate) Gastrointestinal: soft, distended Musculoskeletal: swelling (BLE) Neurological: REGISTERED [employer] II-XII intact, nl mental status, nl speech Results Results 24hrs Laboratory Tests Test 01/10/19 04:28 White Blood Count 9.4 # Red Blood Count 5.17 Hemoglobin 12.6 L Hematocrit 43.1 Mean Corpuscular Volume 83.4 Mean Corpuscular Hemoglobin 24.4 L Mean Corpuscular Hemoglobin Concent 29.2 L Red Cell Distribution Width 19.8 H Platelet Count 266 Mean Platelet Volume 9.4 Immature Granulocytes % 0.700 H Neutrophils % 67.0 Lymphocytes % 12.0 L Monocytes % 12.9 H Eosinophils % 7.1 H Basophils % 0.3 Nucleated Red Blood Cells % 0.0 Immature Granulocytes # 0.070 H Neutrophils # 6.3 Lymphocytes # 1.1 Monocytes # 1.2 H Eosinophils # 0.7 H Basophils # 0.0 Nucleated Red Blood Cells # 0.0 Sodium Level 134 L Potassium Level 4.8 Chloride Level 94 L Carbon Dioxide Level 33 H Anion Gap 7 Blood Urea Nitrogen 23 H Creatinine 0.84 Est Glomerular Filtrat Rate mL/min > 60 Glucose Level 105 Calcium Level 8.8 Phosphorus Level 3.2 Magnesium Level 1.9 Medications Medication Current Medications IV Flush (NS 3 ml) 3 ml PER PROTOCOL IV ; Start 01/05/19 at 00:30 Ondansetron HCl (Zofran Inj) 4 mg Q6H PRN IV NAUSEA/VOMITING; Start 01/05/19 at 00:30 Nitroglycerin (Nitroglycerin (Sl Tab) 0.4 Mg) 1 tab Q5M PRN SL .CHEST PAIN; St art 01/05/19 at 00:30 Acetaminophen (Tylenol Tab) 650 mg Q6H PRN PO .PAIN 1-3 OR TEMP; Start 01/05/19 at 00:30 Albuterol/ Ipratropium (Duoneb) 3 ml Q2H RESP THERAPY PRN HHN SHORTNESS OF BREATH Last administered on 01/10/19 11:06; Admin Dose 3 ML; Start 01/05/19 at 00:30 Albuterol (Ventolin Hfa) 2 puff Q6H RESP THERAPY INH Last administered on 01/10/19 08:49; Admin Dose 2 PUFF; Start 01/05/19 at 02:00 Aspirin (Halfprin) 81 mg DAILY PO Last administered on 01/10/19 08:49; Admin Dose 81 MG; Start 01/05/19 at 09:00 Nicotine (Nicoderm 21 Mg/ 24hr) 1 patch DAILY TRANSDERM Last administered on 01/10/19 08:53; Admin Dose 1 PATCH; Start 01/05/19 at 09:00 Carvedilol (Coreg) 3.25 mg BID PO Last administered on 01/10/19 08:54; Admin Dose 3.25 MG; Start 01/05/19 at 21:00 Spironolactone (Aldactone) 25 mg DAILY PO Last administered on 01/10/19 08:49; Admin Dose 25 MG; Start 01/05/19 at 11:30 Cefepime HCl 50 ml @ 100 mls/hr Q12 IVPB Last administered on 01/10/19 08:50; Admin Dose 100 MLS/HR; Start 01/05/19 at 11:30 Docusate Sodium (Colace) 100 mg BID PO Last administered on 01/10/19 08:49; Admin Dose 100 MG; Start 01/05/19 at 11:30 Famotidine (Pepcid) 20 mg BID PO Last administered on 01/10/19 08:49; Admin Dose 20 MG; Start 01/05/19 at 11:30 Lorazepam (Ativan) 1 mg Q6 PRN IV agitation / withdrawal Last administered on 01/10/19 02:26; Admin Dose 1 MG; Start 01/05/19 at 16:00 Morphine Sulfate (morphine) 2 mg Q3 PRN IV SEVERE PAIN LEVEL 7-10 Last administered on 01/10/19 09:01; Admin Dose 2 MG; Start 01/05/19 at 16:00 Hydralazine HCl (Apresoline) 10 mg Q8 PO Last administered on 01/10/19 06:19; Admin Dose 10 MG; Start 01/07/19 at 22:00 Isosorbide Dinitrate (Isordil) 10 mg TID PO Last administered on 01/10/19 08:54; Admin Dose 10 MG; Start 01/08/19 at 09:00 Furosemide (Lasix) 40 mg BID DIURETICS IV Last administered on 01/10/19 06:18; Admin Dose 40 MG; Start 01/08/19 at 18:00 Apixaban (Eliquis) 5 mg BID PO Last administered on 01/10/19 08:49; Admin Dose 5 MG; Start 01/08/19 at 10:30 Acetazolamide (Diamox) 500 mg DAILY IV Last administered on 01/10/19 10:08; Admin Dose 500 MG; Start 01/10/19 at 09:30 BEV TITUS NP January 10, 2019 11:27
--- NOTE | 2019-01-10 13:25 | CONS ---
Assessment/Plan Assessment/Plan Hospital Course (Demo Recall) IMPRESSION: 1. CHF exacerbation, systolic, acute on chronic. 2. Cardiomyopathy with severely depressed left ventricular ejection fraction, last EF approximately 15% to 20%. 3. Substance abuse by tox screen known with methamphetamine. 4. Cirrhosis with ascites requiring large volume paracenteses. 5. Pleural effusion, status post thoracentesis. 6. History of DVT with Eliquis currently held and a history of pulmonary embolism secondary to that. 7. Renal failure-improved today 8. Mild coagulopathy. 9. Hepatitis C. 10. COPD. 11.chest pain-intermittent. Trop neg x 3, currently improved Recc: -On med-surg -serial ecg's -Continue low dose coreg/isordil as tolerated for treatment of cardiomyopathy and chest pain -0d/c hydralazine and start low dose ACEI afterload reduction given now improved horse wrangler -Continue aldactone/lasix with currently improved creatnine -Contineu asa -Nicotine patch Consultation Date/Type/Reason Admit Date/Time January 04, 2019 at 23:21 Initial Consult Date 01/07/19 Type of Consult Cardiology Reason for Consultation CHF Requesting Provider: ARMAND FERMIN Date/Time of Note DATE: 01/10/19 TIME: 13:22 Exam/Review of Systems Vital Signs Vitals Vital Signs Date Temp Pulse Resp B/P (MAP) Pulse Ox O2 O2 Flow FiO2 Time Delivery Rate 01/10/19 2.0 11:07 01/10/19 92 96 Nasal 11:07 Cannula 01/10/19 98.0 20 109/65 02:00 (80) 01/08/19 21 20:19 Intake and Output 01/09/19 01/09/19 01/10/19 1515:00 23:00 07:00 IntakeIntake Total 2980 ml 960 ml 50 ml OutputOutput Total 2100 ml 2000 ml 300 ml BalanceBalance 880 ml -1040 ml -250 ml Exam Exam Review of Systems: CONSTITUTIONAL: No fevers, chills. PULMONARY: No sob CARDIOVASCULAR: No chest pain/palpitations GASTROINTESTINAL: No nausea/vomiting. GENITOURINARY: No hematuria/dysuria. MUSCULOSKELETAL: No myagias/arthalgias. PSYCHIATRIC: The patient denies depression. NEUROLOGIC: No weakness Constitutional: alert Psych: no complaints, confusion (?) Head: normocephalic ENMT: mucosa pink and moist Neck: supple, jvd (9 mcm water) Respiratory: diminished breath sounds (at bases R>L) Cardiovascular: regular rate and rhythm Gastrointestinal: soft, non-tender Musculoskeletal: muscle tone (normal) Extremities: edema (trace with chronic skin changes) Neurological: other (NMo focal deficits) Labs Result Diagram: 01/10/198 01/10/19 0428 Results 24hrs Laboratory Tests Test 01/10/19 04:28 White Blood Count 9.4 # Red Blood Count 5.17 Hemoglobin 12.6 L Hematocrit 43.1 Mean Corpuscular Volume 83.4 Mean Corpuscular Hemoglobin 24.4 L Mean Corpuscular Hemoglobin Concent 29.2 L Red Cell Distribution Width 19.8 H Platelet Count 266 Mean Platelet Volume 9.4 Immature Granulocytes % 0.700 H Neutrophils % 67.0 Lymphocytes % 12.0 L Monocytes % 12.9 H Eosinophils % 7.1 H Basophils % 0.3 Nucleated Red Blood Cells % 0.0 Immature Granulocytes # 0.070 H Neutrophils # 6.3 Lymphocytes # 1.1 Monocytes # 1.2 H Eosinophils # 0.7 H Basophils # 0.0 Nucleated Red Blood Cells # 0.0 Sodium Level 134 L Potassium Level 4.8 Chloride Level 94 L Carbon Dioxide Level 33 H Anion Gap 7 Blood Urea Nitrogen 23 H Creatinine 0.84 Est Glomerular Filtrat Rate mL/min > 60 Glucose Level 105 Calcium Level 8.8 Phosphorus Level 3.2 Magnesium Level 1.9 Medications Medications Current Medications IV Flush (NS 3 ml) 3 ml PER PROTOCOL IV ; Start 01/05/19 at 00:30 Ondansetron HCl (Zofran Inj) 4 mg Q6H PRN IV NAUSEA/VOMITING; Start 01/05/19 at 00:30 Nitroglycerin (Nitroglycerin (Sl Tab) 0.4 Mg) 1 tab Q5M PRN SL .CHEST PAIN; Start 01/05/19 at 00:30 Acetaminophen (Tylenol Tab) 650 mg Q6H PRN PO .PAIN 1-3 OR TEMP; Start 01/05/19 at 00:30 Albuterol/ Ipratropium (Duoneb) 3 ml Q2H RESP THERAPY PRN HHN SHORTNESS OF BREATH Last administered on 01/10/19at 11:06; Admin Dose 3 ML; Start 01/05/19 at 00:30 Albuterol (Ventolin Hfa) 2 puff Q6H RESP THERAPY INH Last administered on 01/10/19 13:03; Admin Dose 2 PUFF; Start 01/05/19 at 02:00 Aspirin (Halfprin) 81 mg DAILY PO Last administered on 01/10/19 08:49; Admin Dose 81 MG; Start 01/05/19 at 09:00 Nicotine (Nicoderm 21 Mg/ 24hr) 1 patch DAILY TRANSDERM Last administered on 01/10/19 08:53; Admin Dose 1 PATCH; Start 01/05/19 at 09:00 Carvedilol (Coreg) 3.25 mg BID PO Last administered on 01/10/19 08:54; Admin Dose 3.25 MG; Start 01/05/19 at 21:00 Spironolactone (Aldactone) 25 mg DAILY PO Last administered on 01/10/19 08:49; Admin Dose 25 MG; Start 01/05/19 at 11:30 Cefepime HCl 50 ml @ 100 mls/hr Q12 IVPB Last administered on 01/10/19 08:50; Admin Dose 100 MLS/HR; Start 01/05/19 at 11:30 Docusate Sodium (Colace) 100 mg BID PO Last administered on 01/10/19 08:49; Admin Dose 100 MG; Start 01/05/19 at 11:30 Famotidine (Pepcid) 20 mg BID PO Last administered on 01/10/19 08:49; Admin Dose 20 MG; Start 01/05/19 at 11:30 Lorazepam (Ativan) 1 mg Q6 PRN IV agitation / withdrawal Last administered on 01/10/19 02:26; Admin Dose 1 MG; Start 01/05/19 at 16:00 Hydralazine HCl (Apresoline) 10 mg Q8 PO Last administered on 01/10/19 06:19; Admin Dose 10 MG; Start 01/07/19 at 22:00 Isosorbide Dinitrate (Isordil) 10 mg TID PO Last administered on 01/10/19 08:54; Admin Dose 10 MG; Start 01/08/19 at 09:00 Furosemide (Lasix) 40 mg BID DIURETICS IV Last administered on 01/10/19 06:18; Admin Dose 40 MG; Start 01/08/19 at 18:00 Apixaban (Eliquis) 5 mg BID PO Last administered on 01/10/19 08:49; Admin Dose 5 MG; Start 01/08/19 at 10:30; Status Hold Acetazolamide (Diamox) 500 mg DAILY IV Last administered on 01/10/19 10:08; Admin Dose 500 MG; Start 01/10/19 at 09:30 Morphine Sulfate (morphine) 1 mg Q4H PRN IV SEVERE PAIN LEVEL 7-10 Last administered on 01/10/19at 13:04; Admin Dose 1 MG; Start 01/10/19 at 11:30 JOSE AGGARWAL January 10, 2019 13:25
[2019-01-10] MEDS ORDERED: LISINOPRIL 5 MG TAB PO ONE (13:30)
[2019-01-10 13:38] VITALS: BP 108/75; PULSE 85; RESP 18
[2019-01-10 19:20] VITALS: BP 119/79; PULSE 94; RESP 18
[2019-01-11] MEDS: LORAZEPAM 2 MG INJ IV PRN (01:14)
[2019-01-11] MEDS: ALBUTEROL HFA 8 GM INHALER INH SCH ×5 (02:00→21:50)
[2019-01-11 02:06] VITALS: BP 110/74; PULSE 96; RESP 18
[2019-01-11] MEDS: morphine 2 MG INJ IV PRN ×4 (03:47→20:14)
[2019-01-11] MEDS: FUROSEMIDE 40 MG INJ IV SCH ×2 (05:42→17:51)
[2019-01-11 07:26] VITALS: BP 113/83; PULSE 93; RESP 18
--- NOTE | 2019-01-11 08:47 | PN ---
DATE: 01/11/2019 SUBJECTIVE: The patient continues to have shortness of breath. Although slowly improving. No other events noted. OBJECTIVE: VITAL SIGNS: Blood pressure is 130/83, respirations 18, pulse 93, temperature 97.7. HEENT: Head is normocephalic. NECK: Supple. HEART: Regular rate. LUNGS: Show diminished breath sounds at the base. ABDOMEN: Soft, nontender to palpation without rebound or guarding. EXTREMITIES: Negative for clubbing, cyanosis. Positive edema. DERMATOLOGIC: No rashes. MUSCULOSKELETAL: No joint effusion. NEUROLOGIC: No change in exam. MEDICATIONS: Reviewed. LABORATORY DATA: Reviewed. ASSESSMENT AND PLAN: 1. Nonoliguric acute kidney injury on top of chronic kidney disease stage III with previous baseline creatinine of 1.5 mg/dL. Etiology of acute kidney injury is secondary to cardiorenal syndrome. The patient's renal function is improving. Continue current diuretic regimen. 2. Hypernatremia secondary to congestive heart failure, cirrhosis. Sodium levels have been improvin g. Continue to monitor and limit free water intake. 3. Alkalosis secondary to diuretic therapy, continue Diamox. 4. Acute on chronic systolic, diastolic heart failure. The patient remains decompensated. Continue medical management. Continue Lasix, Aldactone. Continue Diamox. Monitor closely. 5. Mineral bone disorder. Monitor calcium and phosphorus levels. 6. Ascites secondary to cirrhosis and right sided heart failure. The patient is status post paracen tesis. 7. Pleural effusion, status post thoracentesis. 8. Pulmonary embolus and deep vein thrombosis. Continue medical management. 9. Acute respiratory failure, etiology is multifactorial secondary to congestive heart failure, pulm onary embolism. Continue current treatment plan. 10. History of hepatitis C. 11. History of chronic obstructive pulmonary disease. 12. History of polysubstance abuse. Dictated By: NHAN NIETO DO NR/NTS Conf#: [id number] DID#: [id number] CC: EVELIO MCKINNEY MD; ARMAND FERMIN MD;*End*
[2019-01-11] MEDS: ACETAZOLAMIDE 500 MG INJ IV SCH (09:26)
[2019-01-11] MEDS: DOCUSATE SODIUM 100 MG CAP PO SCH ×2 (09:27→20:13)
[2019-01-11] MEDS: SPIRONOLACTONE 25 MG TAB PO SCH (09:27)
[2019-01-11] MEDS: ASPIRIN (EC) 81 MG TAB PO SCH (09:27)
[2019-01-11] MEDS: FAMOTIDINE 20 MG TAB PO SCH ×2 (09:27→20:12)
[2019-01-11] MEDS: CEFEPIME 1GM/50 ML (PMX) 50 ML IVPB SCH ×2 (09:28→20:12)
[2019-01-11] MEDS: ISOSORBIDE DINITRATE 10 MG TAB PO SCH ×3 (09:28→20:12)
[2019-01-11] MEDS: NICOTINE (21 MG/24 HR) PATCH TRANSDERM SCH (09:29)
--- NOTE | 2019-01-11 12:54 | PN ---
Date/Time of Note Date/Time of Note DATE: 01/11/19 TIME: 12:49 Assessment/Plan VTE Prophylaxis Risk score (from Nsg)>0 risk: 6 SCD applied (from Nsg): Yes Pharmacological prophylaxis: LMWH Lines/Catheters IV Catheter Type (from Nrsg): Peripheral IV Urinary Cath still in place: No Assessment/Plan Hospital Course Subjective: no new issues, was sleeping very deeply, but arousable Objective : General: Sleeping, but arousable and can answer questions HEENT: NC/ AT. PERRL. EOM intact Neck: supple CVS: S1, S2, RRR. no murmurs. no pain on chest wall palpation Lungs: diminished Abd: Distended, firm, severe anasarca. Ext: moving all extremities, bilateral lower extremity edema with severe anasarca assessment and plan: Unfortunate 48 yo male, with a hx of drug abuse, known to us from multiple hospitalizations sent from outside ER for SOB now managed as follows : 1. Acute resp failure 2/2 #2 : improved 2. Acute on chronic Systolic HF -likely 2/2 non compliance to meds / per notes, meds were delivered to patient prior to discharge last visit and he still is stating he could not get meds -continue diuresis -ACS ruled out 3. Chronic CM with last EF 10-15% 4. Pulmonary embolism / Left subclavian thrombus / Popiteal DVT -diagnosed 12/01/18 -eliquis on hold for thoracentesis 5. Sepsis -2/2 # pneumonia, improved 6. Recurrent Pleural effusion with underlying Pneumonia -s/p R sided thoracentesis 01/05/19, 1500 cc of serosanguinous fluid drained and discarded -Imaging still showing persistent right-sided pleural effusion, plan for repeat thoracentesis 7. Hep C / Liver cirrhosis / Hyperbilirubinemia / anasarca / ascites -continued on lasix / spironolactone as well -s/p paracentesis with removal of 4L 01/07/19 -Refferal to hepatology at discharge 8. MARIBEL on CKD -improved 9. COPD: PRN breathing treatments as indicated, 10. Illicit drug use - Amphetamines -likely sleepy from wearing off of amphetamines 11. Non compliance to therapy 12. Hemoptysis : -nurses documented blood tinged sputum on admission, no further episodes since -CT reviewed Plan: -repeat r sided thoracentesis, pulm consult? -continue diuresis -PT -dc eliquis for now and use lovenox only Result Diagram: 01/11/19 0439 01/11/19 0439 Results 24hrs Laboratory Tests Test 01/11/19 04:39 White Blood Count 9.6 Red Blood Count 5.15 Hemoglobin 12.6 L Hematocrit 43.4 Mean Corpuscular Volume 84.3 Mean Corpuscular Hemoglobin 24.5 L Mean Corpuscular Hemoglobin Concent 29.0 L Red Cell Distribution Width 19.9 H Platelet Count 236 Mean Platelet Volume 9.5 Immature Granulocytes % 0.500 H Neutrophils % 67.6 Lymphocytes % 10.8 L Monocytes % 11.4 H Eosinophils % 9.2 H Basophils % 0.5 Nucleated Red Blood Cells % 0.0 Immature Granulocytes # 0.050 H Neutrophils # 6.5 Lymphocytes # 1.0 Monocytes # 1.1 H Eosinophils # 0.9 H Basophils # 0.1 Nucleated Red Blood Cells # 0.0 Sodium Level 136 Potassium Level 4.4 Chloride Level 97 Carbon Dioxide Level 32 H Anion Gap 7 Blood Urea Nitrogen 22 H Creatinine 1.03 Est Glomerular Filtrat Rate mL/min > 60 Glucose Level 99 Calcium Level 9.1 Phosphorus Level 3.7 Magnesium Level 2.2 Exam/Review of Systems Exam Vitals Vital Signs Date Temp Pulse Resp B/P (MAP) Pulse Ox O2 O2 Flow FiO2 Time Delivery Rate 01/11/19 Nasal 2.0 08:10 Cannula 01/11/19 97.7 93 18 113/83 93 07:26 (93) 01/10/19 21 21:55 Intake and Output 01/10/19 01/10/19 01/11/19 1515:00 23:00 07:00 IntakeIntake Total 2010 ml 1090 ml 960 ml OutputOutput Total 3100 ml 2725 ml 1400 ml BalanceBalance -1090 ml -1635 ml -440 ml Results Results 24hrs Laboratory Tests Test 01/11/19 04:39 White Blood Count 9.6 Red Blood Count 5.15 Hemoglobin 12.6 L Hematocrit 43.4 Mean Corpuscular Volume 84.3 Mean Corpuscular Hemoglobin 24.5 L Mean Corpuscular Hemoglobin Concent 29.0 L Red Cell Distribution Width 19.9 H Platelet Count 236 Mean Platelet Volume 9.5 Immature Granulocytes % 0.500 H Neutrophils % 67.6 Lymphocytes % 10.8 L Monocytes % 11.4 H Eosinophils % 9.2 H Basophils % 0.5 Nucleated Red Blood Cells % 0.0 Immature Granulocytes # 0.050 H Neutrophils # 6.5 Lymphocytes # 1.0 Monocytes # 1.1 H Eosinophils # 0.9 H Basophils # 0.1 Nucleated Red Blood Cells # 0.0 Sodium Level 136 Potassium Level 4.4 Chloride Level 97 Carbon Dioxide Level 32 H Anion Gap 7 Blood Urea Nitrogen 22 H Creatinine 1.03 Est Glomerular Filtrat Rate mL/min > 60 Glucose Level 99 Calcium Level 9.1 Phosphorus Level 3.7 Magnesium Level 2.2 Medications Medication Current Medications IV Flush (NS 3 ml) 3 ml PER PROTOCOL IV ; Start 01/05/19 at 00:30 Ondansetron HCl (Zofran Inj) 4 mg Q6H PRN IV NAUSEA/VOMITING; Start 01/05/19 at 00:30 Nitroglycerin (Nitroglycerin (Sl Tab) 0.4 Mg) 1 tab Q5M PRN SL .CHEST PAIN; Start 01/05/19 at 00:30 Acetaminophen (Tylenol Tab) 650 mg Q6H PRN PO .PAIN 1-3 OR TEMP; Start 01/05/19 at 00:30 Albuterol/ Ipratropium (Duoneb) 3 ml Q2H RESP THERAPY PRN HHN SHORTNESS OF BREATH Last administered on 01/10/19 21:53; Admin Dose 3 ML; Start 01/05/19 at 00:30 Albuterol (Ventolin Hfa) 2 puff Q6H RESP THERAPY INH Last administered on 01/11/19 09:44; Admin Dose 2 PUFF; Start 01/05/19 at 02:00 Aspirin (Halfprin) 81 mg DAILY PO Last administered on 01/11/19 09:27; Admin Dose 81 MG; Start 01/05/19 at 09:00 Nicotine (Nicoderm 21 Mg/ 24hr) 1 patch DAILY TRANSDERM Last administered on 01/11/19 09:29; Admin Dose 1 PATCH; Start 01/05/19 at 09:00 Carvedilol (Coreg) 3.25 mg BID PO Last administered on 01/11/19 09:28; Admin Dose 3.25 MG; Start 01/05/19 at 21:00 Spironolactone (Aldactone) 25 mg DAILY PO Last administered on 01/11/19 09:27; Admin Dose 25 MG; Start 01/05/19 at 11:30 Cefepime HCl 50 ml @ 100 mls/hr Q12 IVPB Last administered on 01/11/19 09:28; Admin Dose 100 MLS/HR; Start 01/05/19 at 11:30 Docusate Sodium (Colace) 100 mg BID PO Last administered on 01/11/19 09:27; Admin Dose 100 MG; Start 01/05/19 at 11:30 Famotidine (Pepcid) 20 mg BID PO Last administered on 01/11/19 09:27; Admin Dose 20 MG; Start 01/05/19 at 11:30 Lorazepam (Ativan) 1 mg Q6 PRN IV agitation / withdrawal Last administered on 01/11/19 01:14; Admin Dose 1 MG; Start 01/05/19 at 16:00 Isosorbide Dinitrate (Isordil) 10 mg TID PO Last administered on 01/11/19 12:39; Admin Dose 10 MG; Start 01/08/19 at 09:00 Furosemide (Lasix) 40 mg BID DIURETICS IV Last administered on 01/11/19 05:42; Admin Dose 40 MG; Start 01/08/19 at 18:00 Apixaban (Eliquis) 5 mg BID PO Last administered on 01/10/19 08:49; Admin Dose 5 MG; Start 01/08/19 at 10:30; Status Hold Acetazolamide (Diamox) 500 mg DAILY IV Last administered on 01/11/19 09:26; Admin Dose 500 MG; Start 01/10/19 at 09:30 Morphine Sulfate (morphine) 1 mg Q4H PRN IV SEVERE PAIN LEVEL 7-10 Last administered on 01/11/19 07:56; Admin Dose 1 MG; Start 01/10/19 at 11:30 ARMAND FERMIN January 11, 2019 12:54
--- NOTE | 2019-01-11 13:05 | CONS ---
Assessment/Plan Assessment/Plan Hospital Course (Demo Recall) IMPRESSION: 1. CHF exacerbation, systolic, acute on chronic. 2. Cardiomyopathy with severely depressed left ventricular ejection fraction, last EF approximately 15% to 20%. 3. Substance abuse by tox screen known with methamphetamine. 4. Cirrhosis with ascites requiring large volume paracenteses. 5. Pleural effusion, status post thoracentesis. 6. History of DVT with Eliquis currently held and a history of pulmonary embolism secondary to that. 7. Renal failure-improved today 8. Mild coagulopathy. 9. Hepatitis C. 10. COPD. 11.chest pain-intermittent. Trop neg x 3, currently improved Recc: -On med-surg -serial ecg's -Continue low dose coreg/isordil/ACEI as tolerated for treatment of cardiomyopathy and chest pain -Continue aldactone/lasix with currently improved creatnine -Contineu asa -changed to lovenox in lieu of eliquis in anticipatioon of possible need for thoracentesis -Nicotine patch Consultation Date/Type/Reason Admit Date/Time January 04, 2019 at 23:21 Initial Consult Date 01/07/19 Type of Consult Cardiology Reason for Consultation CHF Requesting Provider: ARMAND FERMIN Date/Time of Note DATE: 01/11/19 TIME: 13:03 Exam/Review of Systems Vital Signs Vitals Vital Signs Date Temp Pulse Resp B/P (MAP) Pulse Ox O2 O2 Flow FiO2 Time Delivery Rate 01/11/19 Nasal 2.0 08:10 Cannula 01/11/19 97.7 93 18 113/83 93 07:26 (93) 01/10/19 21 21:55 Intake and Output 01/10/19 01/10/19 01/11/19 1515:00 23:00 07:00 IntakeIntake Total 2010 ml 1090 ml 960 ml OutputOutput Total 3100 ml 2725 ml 1400 ml BalanceBalance -1090 ml -1635 ml -440 ml Exam Exam Review of Systems: CONSTITUTIONAL: No fevers, chills. PULMONARY: No sob CARDIOVASCULAR: No chest pain/palpitations GASTROINTESTINAL: No nausea/vomiting. GENITOURINARY: No hematuria/dysuria. MUSCULOSKELETAL: generalized pain PSYCHIATRIC: The patient denies depression. NEUROLOGIC: No weakness Constitutional: alert Psych: no complaints Head: normocephalic ENMT: mucosa pink and moist Neck: supple, jvd (9 cm water) Respiratory: diminished breath sounds (at base/B) Cardiovascular: regular rate and rhythm Gastrointestinal: soft, non-tender Musculoskeletal: muscle tone (normal) Extremities: edema (trace with chronic venous stasis changes) Neurological: other (No focal deficits) Labs Result Diagram: 01/11/19 0439 01/11/19 0439 Results 24hrs Laboratory Tests Test 01/11/19 04:39 White Blood Count 9.6 Red Blood Count 5.15 Hemoglobin 12.6 L Hematocrit 43.4 Mean Corpuscular Volume 84.3 Mean Corpuscular Hemoglobin 24.5 L Mean Corpuscular Hemoglobin Concent 29.0 L Red Cell Distribution Width 19.9 H Platelet Count 236 Mean Platelet Volume 9.5 Immature Granulocytes % 0.500 H Neutrophils % 67.6 Lymphocytes % 10.8 L Monocytes % 11.4 H Eosinophils % 9.2 H Basophils % 0.5 Nucleated Red Blood Cells % 0.0 Immature Granulocytes # 0.050 H Neutrophils # 6.5 Lymphocytes # 1.0 Monocytes # 1.1 H Eosinophils # 0.9 H Basophils # 0.1 Nucleated Red Blood Cells # 0.0 Sodium Level 136 Potassium Level 4.4 Chloride Level 97 Carbon Dioxide Level 32 H Anion Gap 7 Blood Urea Nitrogen 22 H Creatinine 1.03 Est Glomerular Filtrat Rate mL/min > 60 Glucose Level 99 Calcium Level 9.1 Phosphorus Level 3.7 Magnesium Level 2.2 Medications Medications Current Medications IV Flush (NS 3 ml) 3 ml PER PROTOCOL IV ; Start 01/05/19 at 00:30 Ondansetron HCl (Zofran Inj) 4 mg Q6H PRN IV NAUSEA/VOMITING; Start 01/05/19 at 00:30 Nitroglycerin (Nitroglycerin (Sl Tab) 0.4 Mg) 1 tab Q5M PRN SL .CHEST PAIN; Start 01/05/19 at 00:30 Acetaminophen (Tylenol Tab) 650 mg Q6H PRN PO .PAIN 1-3 OR TEMP; Start 01/05/19 at 00:30 Albuterol/ Ipratropium (Duoneb) 3 ml Q2H RESP THERAPY PRN HHN SHORTNESS OF BREATH Last administered on 01/10/19at 21:53; Admin Dose 3 ML; Start 01/05/19 at 00:30 Albuterol (Ventolin Hfa) 2 puff Q6H RESP THERAPY INH Last administered on 01/11/19 09:44; Admin Dose 2 PUFF; Start 01/05/19 at 02:00 Aspirin (Halfprin) 81 mg DAILY PO Last administered on 01/11/19 09:27; Admin Dose 81 MG; Start 01/05/19 at 09:00 Nicotine (Nicoderm 21 Mg/ 24hr) 1 patch DAILY TRANSDERM Last administered on 01/11/19 09:29; Admin Dose 1 PATCH; Start 01/05/19 at 09:00 Carvedilol (Coreg) 3.25 mg BID PO Last administered on 01/11/19 09:28; Admin Dose 3.25 MG; Start 01/05/19 at 21:00 Spironolactone (Aldactone) 25 mg DAILY PO Last administered on 01/11/19 09:27; Admin Dose 25 MG; Start 01/05/19 at 11:30 Cefepime HCl 50 ml @ 100 mls/hr Q12 IVPB Last administered on 01/11/19 09:28; Admin Dose 100 MLS/HR; Start 01/05/19 at 11:30 Docusate Sodium (Colace) 100 mg BID PO Last administered on 01/11/19 09:27; Admin Dose 100 MG; Start 01/05/19 at 11:30 Famotidine (Pepcid) 20 mg BID PO Last administered on 01/11/19 09:27; Admin Dose 20 MG; Start 01/05/19 at 11:30 Lorazepam (Ativan) 1 mg Q6 PRN IV agitation / withdrawal Last administered on 01/11/19 01:14; Admin Dose 1 MG; Start 01/05/19 at 16:00 Isosorbide Dinitrate (Isordil) 10 mg TID PO Last administered on 01/11/19 12:39; Admin Dose 10 MG; Start 01/08/19 at 09:00 Furosemide (Lasix) 40 mg BID DIURETICS IV Last administered on 01/11/19 05:42; Admin Dose 40 MG; Start 01/08/19 at 18:00 Acetazolamide (Diamox) 500 mg DAILY IV Last administered on 01/11/19 09:26; Admin Dose 500 MG; Start 01/10/19 at 09:30 Morphine Sulfate (morphine) 1 mg Q4H PRN IV SEVERE PAIN LEVEL 7-10 Last administered on 01/11/19at 07:56; Admin Dose 1 MG; Start 01/10/19 at 11:30 Enoxaparin Sodium (Lovenox) 100 mg Q12 SC ; Start 01/11/19 at 14:00 JOSE AGGARWAL January 11, 2019 13:05
[2019-01-11] MEDS: ALBUTEROL/IPRATROPIUM (NEB) 3 ML AMP HHN PRN (13:53)
[2019-01-11] MEDS: ENOXAPARIN 100 MG/ML SYG SC SCH ×2 (14:00→23:28)
[2019-01-11 14:36] VITALS: BP 118/73; PULSE 92; RESP 18
[2019-01-11] MEDS ORDERED: LIDOCAINE 1% (MPF) 5 ML VIAL ONE (15:23)
[2019-01-11 19:18] VITALS: BP 116/69; PULSE 94; RESP 18
[2019-01-12] MEDS: morphine 2 MG INJ IV PRN ×4 (00:21→13:40)
[2019-01-12] MEDS: ALBUTEROL HFA 8 GM INHALER INH SCH ×3 (02:00→14:00)
[2019-01-12 02:41] VITALS: BP 119/67; PULSE 99; RESP 18
[2019-01-12] MEDS: FUROSEMIDE 40 MG INJ IV SCH (06:17)
[2019-01-12] MEDS: ALBUTEROL/IPRATROPIUM (NEB) 3 ML AMP HHN PRN (06:33)
[2019-01-12 07:34] VITALS: BP 96/64; PULSE 106; RESP 20
--- NOTE | 2019-01-12 08:50 | PN ---
DATE: 01/12/2019 SUBJECTIVE: The patient is stable, was found on the floor yesterday but no noted fall. The patient continues to have some shortness of breath. No other events noted. No hemoptysis, hematemesis. OBJECTIVE: VITAL SIGNS: Blood pressure is 96/64, respirations 20, pulse 106, temperature 98.9. HEENT: Head is normocephalic. NECK: Supple. HEART: Regular rate. LUNGS: Show diminished breath sounds at the base. ABDOMEN: Soft, nontender to palpation without rebound or guarding. EXTREMITIES: Negative for clubbing, cyanosis. Positive edema, improving. DERMATOLOGIC: No rashes. MUSCULOSKELETAL: No joint effusions. NEUROLOGIC: No change in exam. MEDICATIONS: The patient's medications have been reviewed. LABORATORY DATA: Has been reviewed. ASSESSMENT AND PLAN: 1. Nonoliguric acute kidney injury on top of chronic kidney disease stage III with previous baseline creatinine around 1.5 mg/dL. Etiology of acute kidney injury is secondary to cardiorenal syndrome. The patient's renal function is improving. Continue current treatment plan, supportive care. Nancie nue diuretic therapy. 2. Hyponatremia secondary to congestive heart failure, cirrhosis. Continue to monitor, improving. 3. Alkalosis secondary to diuretic therapy, continue Diamox. 4. Acute on chronic heart failure. The patient is decompensated, improving. Continue current diure tic regimen. 5. Mineral bone disorder. Continue to monitor calcium and phosphorus levels. 6. Ascites secondary to right-sided heart failure, cirrhosis, status post paracentesis. 7. Pleural effusion, status post thoracentesis. 8. Pulmonary embolism, DVT. Continue medical management. 9. Acute respiratory failure, etiology is multifactorial. Continue to monitor. 10. History of hepatitis C. 11. History of polysubstance abuse. Dictated By: NHAN NIETO DO NR/NTS Conf#: [id number] DID#: [id number] CC: EVELIO MCKINNEY MD; ARMAND EFRMIN MD;*EndCC*
[2019-01-12] MEDS: ISOSORBIDE DINITRATE 10 MG TAB PO SCH ×2 (09:00→13:46)
[2019-01-12] MEDS: ASPIRIN (EC) 81 MG TAB PO SCH (09:30)
[2019-01-12] MEDS: SPIRONOLACTONE 25 MG TAB PO SCH (09:31)
[2019-01-12] MEDS: CEFEPIME 1GM/50 ML (PMX) 50 ML IVPB SCH (09:31)
[2019-01-12] MEDS: NICOTINE (21 MG/24 HR) PATCH TRANSDERM SCH (09:31)
[2019-01-12] MEDS: DOCUSATE SODIUM 100 MG CAP PO SCH (09:31)
[2019-01-12] MEDS: FAMOTIDINE 20 MG TAB PO SCH (09:31)
[2019-01-12] MEDS: ACETAZOLAMIDE 500 MG INJ IV SCH (09:31)
[2019-01-12] MEDS: ENOXAPARIN 100 MG/ML SYG SC SCH (09:45)
--- NOTE | 2019-01-12 11:53 | CONS ---
Consultation Date/Type/Reason Admit Date/Time January 04, 2019 at 23:21 Initial Consult Date Requesting Provider: ARMAND FERMIN Date/Time of Note DATE: 01/12/19 TIME: 11:53 24 HR Interval Summary Free Text/Dictation VS reviewed - stable Exam/Review of Systems Exam Vitals Vital Signs Date Temp Pulse Resp B/P (MAP) Pulse Ox O2 O2 Flow FiO2 Time Delivery Rate 01/12/19 Nasal 2.0 08:10 Cannula 01/12/19 98.9 106 20 96/64 (75) 95 07:34 01/12/19 21 06:33 Intake and Output 01/11/19 01/11/19 01/12/19 1515:00 23:00 07:00 IntakeIntake Total 1690 ml 928 ml 300 ml OutputOutput Total 1700 ml 1500 ml 400 ml BalanceBalance -10 ml -572 ml -100 ml Results Result Diagram: 01/12/19 0434 01/12/19 0434 Results 24hrs Laboratory Tests Test 01/12/19 04:34 White Blood Count 9.8 Red Blood Count 5.31 Hemoglobin 12.8 L Hematocrit 44.0 Mean Corpuscular Volume 82.9 Mean Corpuscular Hemoglobin 24.1 L Mean Corpuscular Hemoglobin Concent 29.1 L Red Cell Distribution Width 19.9 H Platelet Count 243 Mean Platelet Volume 9.3 Immature Granulocytes % 0.400 Neutrophils % 69.8 Lymphocytes % 11.0 L Monocytes % 9.3 Eosinophils % 9.2 H Basophils % 0.3 Nucleated Red Blood Cells % 0.0 Immature Granulocytes # 0.040 H Neutrophils # 6.8 Lymphocytes # 1.1 Monocytes # 0.9 Eosinophils # 0.9 H Basophils # 0.0 Nucleated Red Blood Cells # 0.0 Sodium Level 139 Potassium Level 4.1 Chloride Level 102 Carbon Dioxide Level 30 Anion Gap 7 Blood Urea Nitrogen 22 H Creatinine 0.99 Est Glomerular Filtrat Rate mL/min > 60 Glucose Level 123 Calcium Level 9.1 Phosphorus Level 3.0 Magnesium Level 2.2 Medications Medication Current Medications IV Flush (NS 3 ml) 3 ml PER PROTOCOL IV ; Start 01/05/19 at 00:30 Ondansetron HCl (Zofran Inj) 4 mg Q6H PRN IV NAUSEA/VOMITING; Start 01/05/19 at 00:30 Nitroglycerin (Nitroglycerin (Sl Tab) 0.4 Mg) 1 tab Q5M PRN SL .CHEST PAIN; Start 01/05/19 at 00:30 Acetaminophen (Tylenol Tab) 650 mg Q6H PRN PO .PAIN 1-3 OR TEMP; Start 01/05/19 at 00:30 Albuterol/ Ipratropium (Duoneb) 3 ml Q2H RESP THERAPY PRN HHN SHORTNESS OF BREATH Last administered on 01/12/19 06:33; Admin Dose 3 ML; Start 01/05/19 at 00:30 Albuterol (Ventolin Hfa) 2 puff Q6H RESP THERAPY INH Last administered on 01/12/19 09:30; Admin Dose 2 PUFF; Start 01/05/19 at 02:00 Aspirin (Halfprin) 81 mg DAILY PO Last administered on 01/12/19 09:30; Admin Dose 81 MG; Start 01/05/19 at 09:00 Nicotine (Nicoderm 21 Mg/ 24hr) 1 patch DAILY TRANSDERM Last administered on 01/12/19:31; Admin Dose 1 PATCH; Start 01/05/19 at 09:00 Carvedilol (Coreg) 3.25 mg BID PO Last administered on 01/11/19 20:13; Admin Dose 3.25 MG; Start 01/05/19 at 21:00 Spironolactone (Aldactone) 25 mg DAILY PO Last administered on 01/12/19 09:31; Admin Dose 25 MG; Start 01/05/19 at 11:30 Cefepime HCl 50 ml @ 100 mls/hr Q12 IVPB Last administered on 01/12/19 09:31; Admin Dose 100 MLS/HR; Start 01/05/19 at 11:30 Docusate Sodium (Colace) 100 mg BID PO Last administered on 01/12/19 09:31; Admin Dose 100 MG; Start 01/05/19 at 11:30 Famotidine (Pepcid) 20 mg BID PO Last administered on 01/12/19 09:31; Admin Dose 20 MG; Start 01/05/19 at 11:30 Lorazepam (Ativan) 1 mg Q6 PRN IV agitation / withdrawal Last administered on 01/11/19 01:14; Admin Dose 1 MG; Start 01/05/19 at 16:00 Isosorbide Dinitrate (Isordil) 10 mg TID PO Last administered on 01/11/19 20:12; Admin Dose 10 MG; Start 01/08/19 at 09:00 Furosemide (Lasix) 40 mg BID DIURETICS IV Last administered on 01/12/19 06:17; Admin Dose 40 MG; Start 01/08/19 at 18:00 Acetazolamide (Diamox) 500 mg DAILY IV Last administered on 01/12/19 09:31; Admin Dose 500 MG; Start 01/10/19 at 09:30 Morphine Sulfate (morphine) 1 mg Q4H PRN IV SEVERE PAIN LEVEL 7-10 Last administered on 01/12/19 09:33; Admin Dose 1 MG; Start 01/10/19 at 11:30 Enoxaparin Sodium (Lovenox) 100 mg Q12 SC Last administered on 01/12/19 09:45; Admin Dose 100 MG; Start 01/11/19 at 14:00 JOE MONTIEL MD January 12, 2019 11:53
--- NOTE | 2019-01-12 13:04 | DS ---
Date/Time of Note Date/Time of Note DATE: 01/12/19 TIME: 13:03 Discharge Summary Admission/Discharge Info Admit Date/Time January 04, 2019 at 23:21 Discharge Date/Time Discharge Diagnosis Unfortunate 48 yo male, with a hx of drug abuse, known to us from multiple hospitalizations sent from outside ER for SOB now managed as follows : 1. Acute resp failure 2/ #2 : resolved -patient is s/p thoracentesis x2 with improvement in symptoms -he's also maintained on diuresis and abx, doing well 2. Acute on chronic Systolic HF - compensated / on going diuresis 3. Chronic CM with last EF 10-15% 4. Pulmonary embolism / Left subclavian thrombus / Popiteal DVT -diagnosed 12/01/18 -regions of parenchymal infarct/necrosis from previous large pulmonary embolism, with the overall size of this region appearing decreased on CT 5. Sepsis -09/19 # pneumonia, improved 6. Recurrent Pleural effusion with underlying Pneumonia -s/p R sided thoracentesis 01/05/19, 1500 cc of serosanguinous fluid drained and discarded -Repeat thoracentesis 01/11/19, another total of 1500 cc of clear yellow fluid were drained at the end of the procedure 7. Hep C / Liver cirrhosis / Hyperbilirubinemia / anasarca / ascites -continued on lasix / spironolactone as well -s/p paracentesis with removal of 4L 01/07/19 -undetectable viral load last visit without treatment 8. MARIBEL on CKD -improved 9. COPD: PRN breathing treatments as indicated, 10. Illicit drug use - Amphetamines / s/p cessation counselling 11. Transient Hemoptysis : resolved . Consults Nephrology: Robert Dunlap DO Cardiology: Jose Vazquez MD . Hospital Course 48 yo M who had presented to the ER with complaints of of shortness of breath. He was transferred to [facility] for insurance reason. He had been recently diagnosed with a PE and DVT. He also had known severe CM with last known EF of 15%. He was managed with the diagnosis as summarized above and he is doing much better. He's asking to be discharged today. Unfortunately, insurance authorization for his anticoagulation is still pending. Once this is obtained, patient is stable for discharge to his mother's home with for home nursing evaluation. He was offered recuperative care, but he declined. . Home Meds Active Scripts Hydrocodone/Acetaminophen (Hydrocodone-Acetamin 10-325 mg) 1 Each Tablet, 1 TAB PO Q4H PRN for MODERATE PAIN LEVEL 4-6, #20 TAB Prov:JOSE BRADY MD 12/04/18 Apixaban* (Eliquis*) 5 Mg Tablet, 10 MG PO BID, #90 TAB Take 2 tabs (10mg) twice daily for 7 days then take 1 tab (5mg) twice daily afterwards. Prov:JOSE BRADY MD 12/04/18 Albuterol Sulfate* (Proair HFA*) 8.5 Gm Hfa.aer.ad, 2 PUFF INH Q6 for SOB, #1 INHALER Prov:JOSE BRADY MD 12/04/18 Furosemide* (Lasix*) 40 Mg Tablet, 40 MG PO BID for 30 Days, #60 TAB 1 Refill Take with Aldactone at the same time, take evening dose of before 6 PM as to not effect your sleep Prov:DAMEON MADRIGAL MD 11/21/18 Carvedilol* (Carvedilol*) 6.25 Mg Tablet, 6.25 MG PO BID, #60 TAB Prov:JOSE BRADY MD 10/06/18 Reported Medications Aspirin Ec (Aspir 81) 81 Mg Tablet.dr, 81 MG PO DAILY, #30 TAB 11/03/18 Follow-up Plan Followup with your primary doctor within the next 1-2 weeks. If you don't have one please let someone know, we can give you resources that may help you pick one. You may call Dr Maco Mix's office. he's accepting new patients Name, Degree: Maco Mix MD Specialty: Internal Medicine Comments: Office Address: [address] [place] [id number] Office Office You may also call your insurance company to assign one to you. Review your medication list with your nurse before leaving and if you need new prescriptions please let your nurse know. I may have made changes to your home medications or given you new prescriptions, please let your primary doctor know as well. Stay compliant with your medications and report any side effects to your PCP or pharmacist. Return to the ER if you have any concerns and cannot reach your doctors or call your insurance company, they usually have a nurse that can help you. ___ f/u with the pulmunologist Dr Almodovar Name, Degree : Sunil Almodovar MD Specialty : Critical Care Medicine Office Address : [address] [place] [address] Office Office Please followup with Dr Vazquez for cardiology Name, Degree: Jose Vazquez MD Specialty: Cardiology Comments: Office Address: [address] [facility] [place] [address] Office [place] Weighmaster: Eden Kumari Primary Care Provider Dulce Joyce Time spent on discharge: > 30 minutes Pending Labs Laboratory Tests Test 01/12/19 04:34 White Blood Count 9.8 10^3/ul (4.8-10.8) Red Blood Count 5.31 10^6/ul (4.70-6.10) Hemoglobin 12.8 g/dl (14.0-18.0) Hematocrit 44.0 % (42.0-52.0) Mean Corpuscular Volume 82.9 fl (82.0-101.0) Mean Corpuscular Hemoglobin 24.1 pg (29.0-33.0) Mean Corpuscular Hemoglobin Concent 29.1 g/dl (32.0-37.0) Red Cell Distribution Width 19.9 % (11.5-14.5) Platelet Count 243 10^3/UL (140-415) Mean Platelet Volume 9.3 fl (7.4-10.4) Immature Granulocytes % 0.400 % (0.001-0.429) Neutrophils % 69.8 % (39.0-77.0) Lymphocytes % 11.0 % (15.0-51.0) Monocytes % 9.3 % (0.0-11.0) Eosinophils % 9.2 % (0.0-7.0) Basophils % 0.3 % (0.0-2.0) Nucleated Red Blood Cells % 0.0 /100WBC (0.0-0.0) Immature Granulocytes # 0.040 10^3/ul (0.0-0.031) Neutrophils # 6.8 10^3/ul (1.6-7.5) Lymphocytes # 1.1 10^3/ul (0.8-2.9) Monocytes # 0.9 10^3/ul (0.3-0.9) Eosinophils # 0.9 10^3/ul (0.0-0.5) Basophils # 0.0 10^3/ul (0.0-0.1) Nucleated Red Blood Cells # 0.0 10^3/ul (0.0-0.0) Sodium Level 139 mmol/L (135-144) Potassium Level 4.1 mmol/L (3.5-5.1) Chloride Level 102 mmol/L (97-110) Carbon Dioxide Level 30 mmol/L (21-31) Anion Gap 7 (5-13) Blood Urea Nitrogen 22 mg/dl (7-20) Creatinine 0.99 mg/dl (0.61-1.24) Est Glomerular Filtrat Rate mL/min > 60 mL/min (>60) Glucose Level 123 mg/dl (70-220) Calcium Level 9.1 mg/dl (8.4-10.2) Phosphorus Level 3.0 mg/dl (2.5-4.9) Magnesium Level 2.2 mg/dl (1.7-2.5) ARMAND FERMIN January 12, 2019 13:04
--- NOTE | 2019-01-12 13:05 | PDOCDIS ---
Discharge Instructions CONDITION [id number] Patient Condition: [id number] Stable HOME CARE INSTRUCTIONS: [id number] Diet Instructions: [id number] Low Fat /Cholesterol ACTIVITY: [id number] Activity Restrictions: [id number] Slowly Increase Activity Rest between Activity FOLLOW UP/APPOINTMENTS Follow-up Plan Followup with your primary doctor within the next 1-2 weeks. If you don't have one please let someone know, we can give you resources that may help you pick one. You may call Dr Maco Mix's office. he's accepting new patients Name, Degree: Maco Mix MD Specialty: Internal Medicine Comments: Office Address: [address] [place] [address] [place] [id number] Office Office You may also call your insurance company to assign one to you. Review your medication list with your nurse before leaving and if you need new prescriptions please let your nurse know. I may have made changes to your home medications or given you new prescriptions, please let your primary doctor know as well. Stay compliant with your medications and report any side effects to your PCP or pharmacist. Return to the ER if you have any concerns and cannot reach your doctors or call your insurance company, they usually have a nurse that can help you. OTHER ORDERS: Other Orders: Please stop using amphetamines . If you have already stopped, Good for you!!!. It is however an ongoing process. If you need help or resources, please let someone know before you leave. We are here to help you. ARMAND FERMIN January 12, 2019 13:05
[2019-01-12 14:08] VITALS: BP 98/53; PULSE 96; RESP 20
[2019-01-12] MEDS ORDERED: ACET250T22 PO (16:10)
[2019-01-12] MEDS ORDERED: NICO-546 TRANSDERM (16:10)
[2019-01-12] MEDS ORDERED: DOCU-144 PO (16:10)
[2019-01-12] MEDS ORDERED: SPIR25TA PO (16:10)
[2019-01-12] MEDS ORDERED: CARV6.2579 PO (16:10)
[2019-01-12] MEDS ORDERED: LEVO500T10 PO (16:10)
[2019-01-12] MEDS ORDERED: FAMO20TA18 PO (16:10)
[2019-01-12] MEDS ORDERED: ISOS10TA2 PO (16:10)
[2019-01-12] MEDS ORDERED: RIVA15TA PO (16:12)
[2019-01-12] MEDS ORDERED: RIVA20TA5 PO (16:12)
== END 2019-01-12 18:35 | disposition left against medical advice (07) | DRG 871 ==
LOC: 2NE 23:21
PROVIDERS: ADMIT Internal Medicine; ATTEND Family Medicine
PROC: 0W9930Z Drainage of Right Pleural Cavity with Drainage Device, Percutaneous Approach (ICD-10-PCS; principal; 2019-01-05)
PROC: 0W9G3ZZ Drainage of Peritoneal Cavity, Percutaneous Approach (ICD-10-PCS; 2019-01-07)
PROC: 0W993ZZ Drainage of Right Pleural Cavity, Percutaneous Approach (ICD-10-PCS; 2019-01-11)
DX: A41.9 Sepsis, unspecified organism (principal); I50.23 Acute on chronic systolic (congestive) heart failure; J18.9 Pneumonia, unspecified organism; J96.00 Acute respiratory failure, unspecified whether with hypoxia or hypercapnia; I13.0 Hypertensive heart and chronic kidney disease with heart failure and stage 1 through stage 4 chronic kidney disease, or unspecified chronic kidney disease; J90 Pleural effusion, not elsewhere classified; N17.9 Acute kidney failure, unspecified; R18.8 Other ascites; F15.20 Other stimulant dependence, uncomplicated; J44.0 Chronic obstructive pulmonary disease with (acute) lower respiratory infection; R04.2 Hemoptysis; I42.9 Cardiomyopathy, unspecified; R65.20 Severe sepsis without septic shock; N18.3 Chronic kidney disease, stage 3 (moderate); Z86.711 Personal history of pulmonary embolism; Z86.718 Personal history of other venous thrombosis and embolism; B19.20 Unspecified viral hepatitis C without hepatic coma; Z91.14 Patient's other noncompliance with medication regimen; K74.60 Unspecified cirrhosis of liver; F17.200 Nicotine dependence, unspecified, uncomplicated; E80.6 Other disorders of bilirubin metabolism; Z91.19 Patient's noncompliance with other medical treatment and regimen
CPT/HCPCS: 71045; 71250; 76942; 80048; 80053; 80076; 81003; 82043; 82550; 82553; 83735; 84100; 84155; 84300; 84484; 85025; 85610; 85730; 87081; 93005; 94640; 94664; 97161; A4310; J0692; J1120; J1650; J1940; J2060; J2270

== ENCOUNTER 2019-02-22 17:01 | Inpatient (IN) | payer OTHER ==
[~2019-02-22] VITALS: Ht 180.3 cm; Wt 91.4 kg
[~2019-02-22 17:01] MED LIST changes: +ACET250T22 PO; -APIX5TAB PO; +DOCU-144 PO; +FAMO20TA18 PO; +ISOS10TA2 PO; +LEVO500T10 PO; +NICO-546 TRANSDERM; +RIVA15TA PO; +RIVA20TA5 PO; +SPIR25TA PO
[2019-02-22 21:30] VITALS: BP 123/86; PULSE 104; RESP 18
[2019-02-22 22:16] VITALS: Ht 180.3 cm; Wt 91.4 kg
[2019-02-22] MEDS ORDERED: BISACODYL (EC) 5 MG TAB PO PRN (22:30)
[2019-02-22] MEDS ORDERED: ACETAMINOPHEN 325 MG TAB PO PRN (22:30)
[2019-02-22] MEDS ORDERED: FUROSEMIDE 40 MG TAB PO SCH (22:30)
[2019-02-22] MEDS ORDERED: ONDANSETRON 4 MG INJ IV PRN (22:30)
[2019-02-22] MEDS ORDERED: NACL 0.9% 3 ML SYG IV SCH (22:30)
[2019-02-22] MEDS ORDERED: NITROGLYCERIN (SL) 0.4 MG TAB SL PRN (22:30)
[2019-02-22] MEDS ORDERED: DOCUSATE SODIUM 100 MG CAP PO PRN (22:30)
--- NOTE | 2019-02-22 22:42 | HP ---
Date/Time of Note Date/Time of Note DATE: 02/22/19 TIME: 22:41 Assessment/Plan VTE Prophylaxis Pharmacological prophylaxis: LMWH Assessment/Plan Hospital Course This is a 48-year-old male being admitted to the telemetry floor for: 1 Acute on chronic Systolic heart failure exacerbation:-Previous echocardiogram showed an ejection fraction of approximately 10 to 15%. We will continue diuresis with Bumex. He was initiated on 2 mg IV twice daily at the transferring hospital will continue this. Will check BNP. Will monitor urine output. Will consult cardiology . Continue carvedilol. Isordil. 2. History of pulmonary embolism / Left subclavian thrombus / Popiteal DVT: Diagnosed on 12/01/2018. patient apparently had previous issues with prescriptions for anticoagulation. I do see Xarelto on his EMR however patient is unclear whether he actually is taking this medication or he was unable to fill it. At the current time I will start him on Lovenox therapeutic dose. Will consult social work/case management to see if patient qualifies for anticoagulation such as Eliquis/Xarelto that we can treat the patient. 3. Abdominal ascites: Multifactorial secondary to underlying heart failure, hepatitis C/liver cirrhosis. Will obtain a abdominal ultrasound to assess for degree of ascites for possible paracentesis. We will continue the patient on spironolactone, Bumex IV. Patient did have a paracentesis in the past. Previous hepatitis C viral load was undetectable. Follow-up as an outpatient. 4. Liver cirrhosis: History of hepatitis C. We will check liver function test. Patient does have what appears to be abdominal ascites. We will continue diuresis. Will obtain abdominal ultrasound to assess degree of ascites for possible paracentesis. Undetectable viral load in 2018. Follow-up as an outpatient. Check ammonia level. 5. Chronic kidney disease: Patient's renal function appears to be acceptable value. Monitor urine output. 6. COPD: PRN breathing treatments as indicated, 7. Illicit drug use: Again I did encourage cessation form methamphetamine and other illicit drg use. Will check an ethanol level and urine drug screen. PRN Ativan for withdrawal symptoms. He does report recent use. 8. DVT GI prophylaxis: Lovenox, no GI prophylaxis indicated Further treatment strategy will be implemented as per the clinical course. . HPI/ROS Admit Date/Time Admit Date/Time Feb 22, 2019 at 20:25 Hx of Present Illness Patient is a 48-year-old male he of CHF, cardiomyopathy with severe systolic dysfunction (EF 15 to 20%), bilateral PE, left lower extremity DVT, COPD, cir rhosis, hep C, illicit drug use. Patient presented to [facility] on 02/20/2019 with complaints of shortness of breath and 20 pound weight gain over the past 2 weeks and abdominal discomfort. Patient was admitted to the hospital. Patient was admitted to the hospital for diuresis. He was seen by pulmonology. He was started on IV Bumex. Chest x-ray there did show a biba silar opacity representing atelectasis/airspace disease at bilateral pleural effusions patient was subsequently transferred to [facility] secondary to insurance purposes. Please see chart for pertinent laboratory values. Patient was seen and examined at the bedside upon arrival. He still appears to be short of breath, he does have evidence of volume overload. His abdomen does appear to be distended with subcutaneous edema. He does have rales bilaterally on examination of the lungs. 1+ pitting edema bilateral lower extremities. He does report recent illicit drug use Allergies: NKDA Medications: Below her list of his medications, patient himself reports Lasix and carvedilol but is unsure of the rest of medications and whether he is taking them. Albuterol inhaler as needed Aspirin 81 mg p.o. daily Tyler 10-325 mg p.o. every 4 hours as needed Carvedilol 6.25 mg p.o. twice daily Colace 100 mg p.o. twice daily PRN Famotidine 20 mg p.o. twice daily Lasix 40 mg p.o. twice daily Isosorbide dinitrate 10 mg p.o. 3 times daily Nicotine patch 20 mg daily Xarelto 20 mg p.o. daily Xarelto 15 mg p.o. twice daily Spironolactone 25 mg p.o. daily ROS Const: As per HPI Eyes : No pain discharge or redness or change in visual acuity ENT: No pain, sore throat, congestion, congestion, dysphagia or discharge Respiratory: As per HPI Cardiovascular: As per HPI GI : As per HPI Genitourinary: No dysuria, hematuria, flank pain , discharge or CVA tenderness Musculoskeletal: No joint pain, back pain, neck pain, restricted range of motion in neck or joints Skin: No rash, bruising or hives Neuro: No headache, dizziness, syncope, seizure, focal weakness Endocrine: No polyuria, polydipsia, temperature intolerance Psych: No hallucination, depression, anxiety or suicidal ideation PMH/Family/Social Past Medical History CHF, cardiomyopathy with severe systolic dysfunction (EF 15 to 20%), bilateral PE, left lower extremity DVT, COPD, cirrhosis, hep C, illicit drug use. Coded Allergies: No Known Drug Allergies (Verified Allergy, Unknown, 01/05/19) Past Surgical History right wrist sx, appendectomy Family History Significant Family History: no pertinent family hx Social History illicit drug use, including meth Smoking Status: Current some day smoker Exam/Review of Systems Vital Signs Vitals Vital Signs Date Temp Pulse Resp B/P (MAP) Pulse Ox O2 O2 Flow FiO2 Time Delivery Rate 02/22/19 97.6 104 18 123/86 100 Nasal 2.0 21:30 (98) Cannula Exam Exam General: Patient is currently lying in bed, he does appear to be showing mild increased work of breathing HEENT: Atraumatic, normocephalic. The pupils are equal, round and reactive. Extraocular motor are intact Neck: Supple with full range of motion. No rigidity or meningismus Chest: Nontender Lungs: Rales bilaterally, mild increased work of breathing Heart: Normal S1-S2, Regular rhythm and rate. No murmur, S3, or S4 Abdomen: Soft , distended, subcutaneous edema, bowel sounds are present. No guarding no rebound tenderness , No masses or organomegaly. No costovertebral temporal angle mass Extremities: 1+ pitting edema bilateral lower extremities Neurologic: Normal mental status, speech normal, cranial nerves II through XII are intact, motor and sensory are intact, LULY MCDONALD Feb 22, 2019 22:42
[2019-02-23 00:19] VITALS: BP 117/69; PULSE 105; RESP 18
[2019-02-23] MEDS: ENOXAPARIN 100 MG/ML SYG SC SCH ×3 (00:37→21:32)
[2019-02-23] MEDS: HYDROCODONE/APAP (5/325) TAB PO PRN ×3 (00:53→22:16)
[2019-02-23] MEDS ORDERED: BUMETANIDE 1 MG INJ IV SCH (03:30)
[2019-02-23 04:00] VITALS: BP 118/81; PULSE 109; RESP 20
[2019-02-23] MEDS: BUMETANIDE 2 MG in DEXTROSE 5% 17 ML IV SCH ×2 (04:32→18:17)
[2019-02-23] MEDS: LORAZEPAM 2 MG INJ IV PRN (06:57)
[2019-02-23 07:38] VITALS: BP 127/88; PULSE 104; RESP 20
[2019-02-23] MEDS: BALSAM PERU/CASTOR OIL 60 GM TUBE TOP SCH (08:31)
[2019-02-23] MEDS: NICOTINE (21 MG/24 HR) PATCH TRANSDERM SCH (08:32)
[2019-02-23] MEDS: FAMOTIDINE 20 MG TAB PO SCH ×2 (08:32→21:30)
[2019-02-23] MEDS: ISOSORBIDE DINITRATE 10 MG TAB PO SCH ×3 (08:32→21:30)
[2019-02-23] MEDS: SPIRONOLACTONE 25 MG TAB PO SCH (08:33)
[2019-02-23] MEDS: DOCUSATE SODIUM 100 MG CAP PO SCH ×2 (08:33→21:29)
[2019-02-23] MEDS ORDERED: RIVAROXABAN 15 MG TABLET PO SCH (09:00)
[2019-02-23 11:02] VITALS: BP 119/84; PULSE 116; RESP 17
--- NOTE | 2019-02-23 12:36 | CONS ---
Consultation Date/Type/Reason Admit Date/Time Feb 22, 2019 at 20:25 Type of Consult Cardiology Date/Time of Note DATE: 02/23/19 TIME: 12:35 Hx of Present Illness 48 yo with HTN, CHF, Ef 15% - con't diuresis # [id number] Past Medical History Home Meds Active Scripts Rivaroxaban* (Xarelto*) 20 Mg Tablet, 20 MG PO WITH DINNER, #30 TAB 2 Refills don't start before 02/03/19 [facility] Rivaroxaban* (Xarelto*) 15 Mg Tablet, 15 MG PO BID for 21 Days, #42 TAB till 02/02/19 Prov:[facility] 01/12/19 Famotidine* (Famotidine*) 20 Mg Tablet, 20 MG PO BID, #60 TAB 2 Refills Prov:[facility] 01/12/19 Docusate Sodium* (Colace*) 100 Mg Capsule, 100 MG PO BID for 30 Days, #60 CAP 2 Refills Prov:[facility] 01/12/19 Acetazolamide* (Acetazolamide*) 250 Mg Tablet, 250 MG PO DAILY, #30 TAB Prov:[facility] 01/12/19 Spironolactone* (Aldactone*) 25 Mg Tablet, 25 MG PO DAILY, #30 TAB 2 Refills Prov:[facility] 01/12/19 Isosorbide Dinitrate* (Isordil*) 10 Mg Tablet, 10 MG PO TID, #90 TAB 2 Refills Prov:[facility] 01/12/19 Carvedilol* (Carvedilol*) 6.25 Mg Tablet, 3.25 MG PO BID, #60 TAB 2 Refills Prov:[facility] 01/12/19 Nicotine* (Nicotine* Patch) 21 mg/day Patch, 1 PATCH TRANSDERM DAILY, #30 PATCH 2 Refills Prov:[facility] 01/12/19 Levofloxacin* (Levofloxacin*) 500 Mg Tablet, 500 MG PO DAILY, #14 TAB stop when pills run out or on 01/19/19 Prov:[facility] 01/12/19 Hydrocodone/Acetaminophen (Hydrocodone-Acetamin 10-325 mg) 1 Each Tablet, 1 TAB PO Q4H PRN for MODERATE PAIN LEVEL 4-6, #20 TAB Prov:JOSE BRADY MD 12/04/18 Albuterol Sulfate* (Proair HFA*) 8.5 Gm Hfa.aer.ad, 2 PUFF INH Q6 for SOB, #1 INHALER Prov:JOSE BRADY MD 12/04/18 Furosemide* (Lasix*) 40 Mg Tablet, 40 MG PO BID for 30 Days, #60 TAB 1 Refill Take with Aldactone at the same time, take evening dose of before 6 PM as to not effect your sleep Prov:DAMEON MADRIGAL MD 11/21/18 Reported Medications Aspirin Ec (Aspir 81) 81 Mg Tablet.dr, 81 MG PO DAILY, #30 TAB 11/03/18 Medications Current Medications Carvedilol (Coreg) 3.125 mg BID PO Last administered on 02/23/19 08:33; Admin Dose 3.125 MG; Start 02/23/19 at 09:00 Docusate Sodium (Colace) 100 mg BID PO Last administered on 02/23/19 08:33; Admin Dose 100 MG; Start 02/23/19 at 09:00 Famotidine (Pepcid) 20 mg BID PO Last administered on 02/23/19 08:32; Admin Dose 20 MG; Start 02/23/19 at 09:00 Isosorbide Dinitrate (Isordil) 10 mg TID PO Last administered on 02/23/19 08:32; Admin Dose 10 MG; Start 02/23/19 at 09:00 Nicotine (Nicoderm 21 Mg/ 24hr) 1 patch DAILY TRANSDERM Last administered on 02/23/19 08:32; Admin Dose 1 PATCH; Start 02/23/19 at 09:00 Spironolactone (Aldactone) 25 mg DAILY PO Last administered on 02/23/19 08:33; Admin Dose 25 MG; Start 02/23/19 at 09:00 IV Flush (NS 3 ml) 3 ml PER PROTOCOL IV ; Start 02/22/19 at 22:30 Ondansetron HCl (Zofran Inj) 4 mg Q6H PRN IV NAUSEA/VOMITING; Start 02/22/19 at 22:30 Nitroglycerin (Nitroglycerin (Sl Tab) 0.4 Mg) 1 tab Q5M PRN SL .CHEST PAIN; Start 02/22/19 at 22:30 Acetaminophen (Tylenol Tab) 650 mg Q6H PRN PO .PAIN 1-3 OR TEMP; Start 02/22/19 at 22:30 Acetaminophen/ Hydrocodone Bitart ([place] (5/325)) 1 tab Q6H PRN PO .PAIN 4-6 Last administered on 02/23/19at 00:53; Admin Dose 1 TAB; Start 02/22/19 at 22:30 Docusate Sodium (Colace) 100 mg Q12H PRN PO .CONSTIPATION; Start 02/22/19 at 22:30 Bisacodyl (Dulcolax) 5 mg DAILY PRN PO .CONSTIPATION; Start 02/22/19 at 22:30 Enoxaparin Sodium (Lovenox) 90 mg Q12 SC Last administered on 02/23/19at 08:35; Admin Dose 90 MG; Start 02/22/19 at 23:00 Lorazepam (Ativan) 1 mg Q4 PRN IV CONTROL WITHDRAWAL SYMPTOMS Last administered on 02/23/19at 06:57; Admin Dose 1 MG; Start 02/23/19 at 03:30 Bumetanide 2 mg/ Dextrose 25 ml @ 50 mls/hr BID DIURETICS IV Last administered on 02/23/19at 04:32; Admin Dose 50 MLS/HR; Start 02/23/19 at 04:00 Allergies: Coded Allergies: No Known Drug Allergies (Verified Allergy, Unknown, 01/05/19) Social History Smoking Status: Current some day smoker Exam/Review of Systems Vital Signs Vitals Vital Signs Date Temp Pulse Resp B/P (MAP) Pulse Ox O2 O2 Flow FiO2 Time Delivery Rate 02/23/19 98.1 116 17 119/84 91 11:02 (96) 02/23/19 Nasal 2.0 08:02 Cannula Labs Result Diagram: 02/23/1951002/23/19510 Results 24hrs Laboratory Tests Test 02/22/19 23:01 02/23/19 00:10 02/23/19 05:11 02/23/19 08:18 White Blood Count 11.5 H 10.8 Red Blood Count 5.74 5.49 Hemoglobin 13.9 L 13.1 L Hematocrit 46.5 44.5 Mean Corpuscular Volume 81.0 L 81.1 L Mean Corpuscular 24.2 L 23.9 L Hemoglobin Mean Corpuscular 29.9 L 29.4 L Hemoglobin Concent Red Cell Distribution 19.7 H 19.6 H Width Platelet Count 421 #H 385 Mean Platelet Volume 9.8 9.9 Immature Granulocytes % 0.600 H 0.700 H Neutrophils % 82.0 H 80.0 H Lymphocytes % 8.2 L 9.8 L Monocytes % 7.8 7.6 Eosinophils % 1.1 1.5 Basophils % 0.3 0.4 Nucleated Red Blood 0.0 0.0 Cells % Immature Granulocytes # 0.070 H 0.070 H Neutrophils # 9.4 H 8.6 H Lymphocytes # 0.9 1.1 Monocytes # 0.9 0.8 Eosinophils # 0.1 0.2 Basophils # 0.0 0.0 Nucleated Red Blood 0.0 0.0 Cells # Sodium Level 136 137 Potassium Level 3.8 3.9 Chloride Level 92 L 95 L Carbon Dioxide Level 31 34 H Anion Gap 13 8 Blood Urea Nitrogen 40 H 39 H Creatinine 1.09 1.06 Est Glomerular Filtrat > 60 > 60 Rate mL/min Glucose Level 128 114 Calcium Level 9.1 9.0 Total Bilirubin 0.6 0.6 Direct Bilirubin 0.00 0.00 Indirect Bilirubin 0.6 0.6 Aspartate Amino 26 26 Transf (AST/SGOT) Alanine 23 29 Aminotransferase (ALT/SG PT) Alkaline Phosphatase 191 H 192 H B-Type Natriuretic 39183 H Peptide Total Protein 7.3 6.8 Albumin 3.7 3.2 L Globulin 3.60 H 3.60 H Albumin/Globulin Ratio 1.02 0.88 Ethyl Alcohol Level < 10.0 H Urine Opiates Screen POSITIVE Urine Barbiturates NEGATIVE Urine Amphetamines POSITIVE Screen Urine Benzodiazepines NEGATIVE Screen Urine Cocaine Screen NEGATIVE Urine Cannabinoids POSITIVE Prothrombin Time 25.0 #H Prothrombin Time Ratio 2.0 INR International 2.26 Normalized Ratio Activated 48.5 H Partial Thromboplast Time Ammonia 20 Medications Medications Current Medications Carvedilol (Coreg) 3.125 mg BID PO Last administered on 02/23/19at 08:33; Admin Dose 3.125 MG; Start 02/23/19 at 09:00 Docusate Sodium (Colace) 100 mg BID PO Last administered on 02/23/19 08:33; Admin Dose 100 MG; Start 02/23/19 at 09:00 Famotidine (Pepcid) 20 mg BID PO Last administered on 02/23/19at 08:32; Admin Dose 20 MG; Start 02/23/19 at 09:00 Isosorbide Dinitrate (Isordil) 10 mg TID PO Last administered on 02/23/19 08:32; Admin Dose 10 MG; Start 02/23/19 at 09:00 Nicotine (Nicoderm 21 Mg/ 24hr) 1 patch DAILY TRANSDERM Last administered on 02/23/19 08:32; Admin Dose 1 PATCH; Start 02/23/19 at 09:00 Spironolactone (Aldactone) 25 mg DAILY PO Last administered on 02/23/19 08:33; Admin Dose 25 MG; Start 02/23/19 at 09:00 IV Flush (NS 3 ml) 3 ml PER PROTOCOL IV ; Start 02/22/19 at 22:30 Ondansetron HCl (Zofran Inj) 4 mg Q6H PRN IV NAUSEA/VOMITING; Start 02/22/19 at 22:30 Nitroglycerin (Nitroglycerin (Sl Tab) 0.4 Mg) 1 tab Q5M PRN SL .CHEST PAIN; Start 02/22/19 at 22:30 Acetaminophen (Tylenol Tab) 650 mg Q6H PRN PO .PAIN 1-3 OR TEMP; Start 02/22/19 at 22:30 Acetaminophen/ Hydrocodone Bitart ([place] (5/325)) 1 tab Q6H PRN PO .PAIN 4-6 Last administered on 02/23/19at 00:53; Admin Dose 1 TAB; Start 02/22/19 at 22:30 Docusate Sodium (Colace) 100 mg Q12H PRN PO .CONSTIPATION; Start 02/22/19 at 22:30 Bisacodyl (Dulcolax) 5 mg DAILY PRN PO .CONSTIPATION; Start 02/22/19 at 22:30 Enoxaparin Sodium (Lovenox) 90 mg Q12 SC Last administered on 02/23/19at 08:35; Admin Dose 90 MG; Start 02/22/19 at 23:00 Lorazepam (Ativan) 1 mg Q4 PRN IV CONTROL WITHDRAWAL SYMPTOMS Last administered on 02/23/19at 06:57; Admin Dose 1 MG; Start 02/23/19 at 03:30 Bumetanide 2 mg/ Dextrose 25 ml @ 50 mls/hr BID DIURETICS IV Last administered on 02/23/19at 04:32; Admin Dose 50 MLS/HR; Start 02/23/19 at 04:00 JOE MONTIEL MD Feb 23, 2019 12:36
--- NOTE | 2019-02-23 13:02 | PN ---
Date/Time of Note Date/Time of Note DATE: 02/23/19 TIME: 12:51 Assessment/Plan VTE Prophylaxis Risk score (from [facility] [place])>0 risk: 12 SCD applied (from [facility] [place]): No SCD contraindicated: other Pharmacological prophylaxis: LMWH Lines/Catheters IV Catheter Type (from [facility]): Peripheral IV Urinary Cath still in place: No Assessment/Plan Assessment/Plan 1 Congestive heart failure, systolic with LVEF 15%, on coreg, aldactone, and iv bumex, will add AKANKSHA inhibitor if blood pressure ok 2. Dilated cardiomyopathy 3. History of pulmonary embolism / Left subclavian thrombus / Popiteal DVT: Diagnosed on 12/01/2018, on therapeutic dose of lovenox, will change to oral on discharge 4. Liver cirrhosis: History of hepatitis C, undetectable viral load in 2018. Follow-up as an outpatient. Check ammonia level. 5. COPD: PRN breathing treatments as indicated, 6. Illicit drug use, advise to quit 7. DVT GI prophylaxis: Lovenox, Result Diagram: 02/23/19 0511 02/23/19 05 Results 24hrs Laboratory Tests Test 02/22/19 23:01 02/23/19 00:10 02/23/19 05:11 02/23/19 08:18 White Blood Count 11.5 H 10.8 Red Blood Count 5.74 5.49 Hemoglobin 13.9 L 13.1 L Hematocrit 46.5 44.5 Mean Corpuscular Volume 81.0 L 81.1 L Mean Corpuscular 24.2 L 23.9 L Hemoglobin Mean Corpuscular 29.9 L 29.4 L Hemoglobin Concent Red Cell Distribution 19.7 H 19.6 H Width Platelet Count 421 #H 385 Mean Platelet Volume 9.8 9.9 Immature Granulocytes % 0.600 H 0.700 H Neutrophils % 82.0 H 80.0 H Lymphocytes % 8.2 L 9.8 L Monocytes % 7.8 7.6 Eosinophils % 1.1 1.5 Basophils % 0.3 0.4 Nucleated Red Blood 0.0 0.0 Cells % Immature Granulocytes # 0.070 H 0.070 H Neutrophils # 9.4 H 8.6 H Lymphocytes # 0.9 1.1 Monocytes # 0.9 0.8 Eosinophils # 0.1 0.2 Basophils # 0.0 0.0 Nucleated Red Blood 0.0 0.0 Cells # Sodium Level 136 137 Potassium Level 3.8 3.9 Chloride Level 92 L 95 L Carbon Dioxide Level 31 34 H Anion Gap 13 8 Blood Urea Nitrogen 40 H 39 H Creatinine 1.09 1.06 Est Glomerular Filtrat > 60 > 60 Rate mL/min Glucose Level 128 114 Calcium Level 9.1 9.0 Total Bilirubin 0.6 0.6 Direct Bilirubin 0.00 0.00 Indirect Bilirubin 0.6 0.6 Aspartate Amino 26 26 Transf (AST/SGOT) Alanine 23 29 Aminotransferase (ALT/SG PT) Alkaline Phosphatase 191 H 192 H B-Type Natriuretic 21989 H Peptide Total Protein 7.3 6.8 Albumin 3.7 3.2 L Globulin 3.60 H 3.60 H Albumin/Globulin Ratio 1.02 0.88 Ethyl Alcohol Level < 10.0 H Urine Opiates Screen POSITIVE Urine Barbiturates NEGATIVE Urine Amphetamines POSITIVE Screen Urine Benzodiazepines NEGATIVE Screen Urine Cocaine Screen NEGATIVE Urine Cannabinoids POSITIVE Prothrombin Time 25.0 #H Prothrombin Time Ratio 2.0 INR International 2.26 Normalized Ratio Activated 48.5 H Partial Thromboplast Time Ammonia 20 Subjective 24 Hr Interval Summary Free Text/Dictation no respiratory distress Exam/Review of Systems Exam Vitals Vital Signs Date Temp Pulse Resp B/P (MAP) Pulse Ox O2 O2 Flow FiO2 Time Delivery Rate 02/23/19 98.1 116 17 119/84 91 11:02 (96) 02/23/19 Nasal 2.0 08:02 Cannula Constitutional: alert, oriented, well developed Head: normocephalic, atraumatic Eyes: nl conjunctiva, EOMI, nl lids, PERRL ENMT: nl external ears & nose, nl lips & teeth, nl nasal mucosa & septum Neck: supple, non-tender Respiratory: clear to auscultation, normal air movement; No congested cough, No crackles/rales, No diminished breath sounds, No inter costal retraction, No labored breathing, No respirations, No tactile fremitus, No wheezing, No other Cardiovascular: regular rate and rhythm, nl pulses; No bruits, No diastolic murmur, No edema, No gallop, No irregular rhythm, No jugular venous distention (JVD), No murmurs/extra sounds, No rub, No systolic murmur, No S3, No S4, No other Gastrointestinal: soft, nl liver, spleen, non-tender Musculoskeletal: nl extremities to inspection Extremities: normal pulses; No calf tenderness, No cyanosis, No clubbing, No edema, No pitting pedal edema, No palpable cord, No tenderness, No other Neurological: ECOLOGICAL MODELER II-XII intact, nl mental status, nl speech Skin: nl turgor Results Results 24hrs Laboratory Tests Test 02/22/19 23:01 02/23/19 00:10 02/23/19 05:11 02/23/19 08:18 White Blood Count 11.5 H 10.8 Red Blood Count 5.74 5.49 Hemoglobin 13.9 L 13.1 L Hematocrit 46.5 44.5 Mean Corpuscular Volume 81.0 L 81.1 L Mean Corpuscular 24.2 L 23.9 L Hemoglobin Mean Corpuscular 29.9 L 29.4 L Hemoglobin Concent Red Cell Distribution 19.7 H 19.6 H Width Platelet Count 421 #H 385 Mean Platelet Volume 9.8 9.9 Immature Granulocytes % 0.600 H 0.700 H Neutrophils % 82.0 H 80.0 H Lymphocytes % 8.2 L 9.8 L Monocytes % 7.8 7.6 Eosinophils % 1.1 1.5 Basophils % 0.3 0.4 Nucleated Red Blood 0.0 0.0 Cells % Immature Granulocytes # 0.070 H 0.070 H Neutrophils # 9.4 H 8.6 H Lymphocytes # 0.9 1.1 Monocytes # 0.9 0.8 Eosinophils # 0.1 0.2 Basophils # 0.0 0.0 Nucleated Red Blood 0.0 0.0 Cells # Sodium Level 136 137 Potassium Level 3.8 3.9 Chloride Level 92 L 95 L Carbon Dioxide Level 31 34 H Anion Gap 13 8 Blood Urea Nitrogen 40 H 39 H Creatinine 1.09 1.06 Est Glomerular Filtrat > 60 > 60 Rate mL/min Glucose Level 128 114 Calcium Level 9.1 9.0 Total Bilirubin 0.6 0.6 Direct Bilirubin 0.00 0.00 Indirect Bilirubin 0.6 0.6 Aspartate Amino 26 26 Transf (AST/SGOT) Alanine 23 29 Aminotransferase (ALT/SG PT) Alkaline Phosphatase 191 H 192 H B-Type Natriuretic 88673 H Peptide Total Protein 7.3 6.8 Albumin 3.7 3.2 L Globulin 3.60 H 3.60 H Albumin/Globulin Ratio 1.02 0.88 Ethyl Alcohol Level < 10.0 H Urine Opiates Screen POSITIVE Urine Barbiturates NEGATIVE Urine Amphetamines POSITIVE Screen Urine Benzodiazepines NEGATIVE Screen Urine Cocaine Screen NEGATIVE Urine Cannabinoids POSITIVE Prothrombin Time 25.0 #H Prothrombin Time Ratio 2.0 INR International 2.26 Normalized Ratio Activated 48.5 H Partial Thromboplast Time Ammonia 20 Medications Medication Current Medications Carvedilol (Coreg) 3.125 mg BID PO Last administered on 02/23/19 08:33; Admin Dose 3.125 MG; Start 02/23/19 at 09:00 Docusate Sodium (Colace) 100 mg BID PO Last administered on 02/23/19 08:33; Admin Dose 100 MG; Start 02/23/19 at 09:00 Famotidine (Pepcid) 20 mg BID PO Last administered on 02/23/19 08:32; Admin Dose 20 MG; Start 02/23/19 at 09:00 Isosorbide Dinitrate (Isordil) 10 mg TID PO Last administered on 02/23/19 08:32; Admin Dose 10 MG; Start 02/23/19 at 09:00 Nicotine (Nicoderm 21 Mg/ 24hr) 1 patch DAILY TRANSDERM Last administered on 02/23/19 08:32; Admin Dose 1 PATCH; Start 02/23/19 at 09:00 Spironolactone (Aldactone) 25 mg DAILY PO Last administered on 02/23/19 08:33; Admin Dose 25 MG; Start 02/23/19 at 09:00 IV Flush (NS 3 ml) 3 ml PER PROTOCOL IV ; Start 02/22/19 at 22:30 Ondansetron HCl (Zofran Inj) 4 mg Q6H PRN IV NAUSEA/VOMITING; Start 02/22/19 at 22:30 Nitroglycerin (Nitroglycerin (Sl Tab) 0.4 Mg) 1 tab Q5M PRN SL .CHEST PAIN; Start 02/22/19 at 22:30 Acetaminophen (Tylenol Tab) 650 mg Q6H PRN PO .PAIN 1-3 OR TEMP; Start 02/22/19 at 22:30 Acetaminophen/ Hydrocodone Bitart ([place] (5/325)) 1 tab Q6H PRN PO .PAIN 4-6 Last administered on 7/9/19at 00:53; Admin Dose 1 TAB; Start 02/22/19 at 22:30 Docusate Sodium (Colace) 100 mg Q12H PRN PO .CONSTIPATION; Start 02/22/19 at 22:30 Bisacodyl (Dulcolax) 5 mg DAILY PRN PO .CONSTIPATION; Start 02/22/19 at 22:30 Enoxaparin Sodium (Lovenox) 90 mg Q12 SC Last administered on 02/23/19at 08:35; Admin Dose 90 MG; Start 02/22/19 at 23:00 Lorazepam (Ativan) 1 mg Q4 PRN IV CONTROL WITHDRAWAL SYMPTOMS Last administered on 02/23/19at 06:57; Admin Dose 1 MG; Start 02/23/19 at 03:30 Bumetanide 2 mg/ Dextrose 25 ml @ 50 mls/hr BID DIURETICS IV Last administered on 02/23/19at 04:32; Admin Dose 50 MLS/HR; Start 02/23/19 at 04:00 JUSTIN PAREKH MD Feb 23, 2019 13:01
--- NOTE | 2019-02-23 14:23 | CONS ---
DATE OF ADMISSION: 02/22/2019 DATE OF CONSULTATION: 02/23/2019 TYPE OF CONSULTATION: Cardiology. REFERRING PHYSICIAN: Dr. Diallo. REASON FOR EVALUATION: Shortness of breath, CHF exacerbation. HISTORY OF PRESENT ILLNESS: Mr. Eaton is a 48-year-old gentleman with history of heart failure, c ardiomyopathy with severe ejection fraction of 20%, history of bilateral lower extremity edema, DVT, COPD, hepatitis B, cirrhosis, illicit drug use, who comes in hospital now for evaluation of shortness of breath and CHF exacerbation. It is unclear to me if the patient has been compliant with all his medications. Currently the patient is in gross fluid overload. He has been given Bumex, to which he responded with good diuresis. For now, conservative therapy is expected to diurese and afterload re duction. Medical compliance was strongly encouraged. PAST MEDICAL HISTORY: 1. Hypertension. 2. Dyslipidemia. 3. History of heart failure with ejection fraction of 20%, history of pulmonary embolism, history of DVT. The patient on Xarelto, unclear whether or not he took it, a history of ascites, cirrhosis, ch ronic obstructive pulmonary disease, chronic renal disease, illicit drug use. ALLERGIES: NONE. SOCIAL HISTORY: He has a history of current alcohol and drug abuse. MEDICATIONS: Here include: 1. Coreg 63.1 . 2. Xarelto 20 mg once a day, which has been held at the moment. 3. Furosemide 20 mg p.o. once a day. 4. Isosorbide. 5. Nicotine patch. 6. MiraLax. 7. Bumex subcu. 8. Lovenox 90 mg p.o. b.i.d. 9. Hydrocodone. REVIEW OF SYSTEMS: CONSTITUTIONAL: No fevers or chills, shortness of breath, tachycardia. HEENT: No changes in vision or hearing. CARDIAC: Chest pain reported now. RESPIRATORY: Short of breath, acute . GASTROINTESTINAL: No nausea, vomiting, diarrhea, constipation. GENITOURINARY: No dysuria, hematuria. NEUROLOGIC: No focal neurologic deficit. PSYCHIATRIC: No history of psychiatric disease. PHYSICAL EXAMINATION: VITAL SIGNS: Temperature 98.1, heart rate is 116, blood pressure 119/84. GENERAL: He is a thin gentleman in no acute distress, alert and oriented x1 to 2, somewhat aware of his condition, now in florid congestive heart failure. HEAD: Normocephalic, atraumatic. Eyes anicteric. NECK: Supple. JVD 6-7 cm. No lymphadenopathy. HEART: Regular with PMI displaced leftward. LUNGS: Coarse to base. ABDOMEN: Distended, bowel sounds are present. . There is no abdominal distention. EXTREMITIES: No edema. LABORATORY DATA: White blood cell count is 10.7, 3.1, platelets 385. INR is 2.0. Sodium 137, potassium 3.9. BUN 39, creatinine 1.0. ASSESSMENT AND PLAN: 1. The patient with heart failure, systolic, acute on chronic. Continue diuresis now. Will add aft erload reduction as diuresis is improving. 2. Hypertension. Blood pressure well controlled now. Continue to monitor clinically. 3. Ascites. Patient with ascites due to liver disease. Defer to primary team for additional manage ment. 4. History of possible medical noncompliance. Encouraged compliance, although it is not clear if zoe mendez will follow up. 5. History of deep venous thrombosis. He was on Xarelto prior, probably did not take it, now on Jose Maria enox. I would like to thank Dr. Diallo for referring this patient for my evaluation. Dictated By: JOE MONTIEL MD ML/NTS Conf#: [id number] DID#: [id number] CC: DAMEON DIALLO MD;*EndCC*
[2019-02-23 15:08] VITALS: BP 114/77; PULSE 105; RESP 19
[2019-02-23] MEDS: IPRATROPIUM (NEB) 0.5 MG/2.5 ML AMP HHN SCH ×2 (16:42→19:59)
[2019-02-23] MEDS ORDERED: RIVAROXABAN 20 MG TABLET PO SCH (18:00)
[2019-02-23 20:00] VITALS: BP 111/88; PULSE 103; RESP 18
[2019-02-24] VITALS (13 sets, daily range): BP systolic 102–135; BP diastolic 63–96; PULSE 94–123; RESP 18–29
[2019-02-24] MEDS: LORAZEPAM 2 MG INJ IV PRN ×2 (00:45→16:04)
[2019-02-24] MEDS: IPRATROPIUM (NEB) 0.5 MG/2.5 ML AMP HHN SCH ×3 (01:44→13:04)
[2019-02-24] MEDS: BUMETANIDE 2 MG in DEXTROSE 5% 17 ML IV SCH (05:36)
[2019-02-24] MEDS: FAMOTIDINE 20 MG TAB PO SCH ×2 (08:31→20:47)
[2019-02-24] MEDS: HYDROCODONE/APAP (5/325) TAB PO PRN (08:31)
[2019-02-24] MEDS: DOCUSATE SODIUM 100 MG CAP PO SCH ×2 (08:32→20:46)
[2019-02-24] MEDS: SPIRONOLACTONE 25 MG TAB PO SCH (08:32)
[2019-02-24] MEDS: ISOSORBIDE DINITRATE 10 MG TAB PO SCH ×3 (08:32→20:47)
[2019-02-24] MEDS: NICOTINE (21 MG/24 HR) PATCH TRANSDERM SCH (08:33)
[2019-02-24] MEDS: BALSAM PERU/CASTOR OIL 60 GM TUBE TOP SCH (08:34)
[2019-02-24] MEDS: ENOXAPARIN 100 MG/ML SYG SC SCH (08:43)
[2019-02-24] MEDS ORDERED: LIDOCAINE 2% (SDV) 5 ML INJ ONE (11:44)
[2019-02-24] MEDS ORDERED: LIDOCAINE 1% (MPF) 5 ML VIAL ONE (12:02)
--- NOTE | 2019-02-24 14:46 | CONS ---
Assessment/Plan Assessment/Plan Hospital Course (Demo Recall) IMP: 1.CHF-systolic acute on chronic 2.Cardiomyoppathy-EF 15-20% 3.orthopnea/CURRY 4.NSVT 5.ARF 6.H/O substance abuse 7.Cirrhosis/ascites Recc: -Tele -Continue bumex diuresis but will slow down given onset of ARF -Continue aldactone but decrease dose and follow K closely for now -Continue coreg and will start hydralazine afterload reduction in lieu of ACEI given renal failure -Continue isordil -decrease dose of lovenox to SQ daily until renal function improves -check MG and replete >2.0 Consultation Date/Type/Reason Admit Date/Time Feb 22, 2019 at 20:25 Initial Consult Date 02/23/19 Type of Consult Cardiology Reason for Consultation CHF Requesting Provider: JUSTIN PAREKH MD Date/Time of Note DATE: 02/24/19 TIME: 14:40 Exam/Review of Systems Vital Signs Vitals Vital Signs Date Temp Pulse Resp B/P (MAP) Pulse Ox O2 O2 Flow FiO2 Time Delivery Rate 02/24/19 98 20 96 21 13:04 02/24/19 97.5 121/75 11:00 (90) 02/23/19 4.0 16:43 02/23/19 Nasal 08:02 Cannula Intake and Output 02/23/19 02/23/19 02/24/19 1515:00 23:00 07:00 IntakeIntake Total 100 ml 600 ml 1525 ml OutputOutput Total 3100 ml 250 ml 400 ml BalanceBalance -3000 ml 350 ml 1125 ml Exam Exam Review of Systems: CONSTITUTIONAL: No fevers, chills. PULMONARY: ongoing sob CARDIOVASCULAR: No chest pain/palpitations GASTROINTESTINAL: No nausea/vomiting. GENITOURINARY: No hematuria/dysuria. MUSCULOSKELETAL: No myagias/arthalgias. PSYCHIATRIC: The patient denies depression. NEUROLOGIC: No weakness Constitutional: alert Psych: no complaints Head: normocephalic ENMT: mucosa pink and moist Neck: supple, jvd (10 cm water) Respiratory: diminished breath sounds (at bases/B) Cardiovascular: regular rate and rhythm Gastrointestinal: non-tender Musculoskeletal: muscle tone (normal) Extremities: pitting pedal edema (LE bilateral) Neurological: other (No focal deficits) Labs Result Diagram: 02/24/1936 02/24/1936 Results 24hrs Laboratory Tests Test 02/24/19 05:36 White Blood Count 11.4 H Red Blood Count 5.29 Hemoglobin 12.9 L Hematocrit 44.2 Mean Corpuscular Volume 83.6 Mean Corpuscular Hemoglobin 24.4 L Mean Corpuscular Hemoglobin Concent 29.2 L Red Cell Distribution Width 20.2 H Platelet Count 541 #H Mean Platelet Volume 10.2 Immature Granulocytes % 0.700 H Neutrophils % 76.5 Lymphocytes % 11.7 L Monocytes % 9.9 Eosinophils % 0.6 Basophils % 0.6 Nucleated Red Blood Cells % 0.0 Immature Granulocytes # 0.080 H Neutrophils # 8.7 H Lymphocytes # 1.3 Monocytes # 1.1 H Eosinophils # 0.1 Basophils # 0.1 Nucleated Red Blood Cells # 0.0 Sodium Level 135 Potassium Level 5.0 Chloride Level 90 L Carbon Dioxide Level 31 Anion Gap 14 H Blood Urea Nitrogen 39 H Creatinine 1.46 H Est Glomerular Filtrat Rate mL/min 51 L Glucose Level 102 Calcium Level 9.2 Total Bilirubin 0.9 Direct Bilirubin 0.00 Indirect Bilirubin 0.9 Aspartate Amino Transf (AST/SGOT) 29 Alanine Aminotransferase (ALT/SGPT) 25 Alkaline Phosphatase 193 H Total Protein 7.4 Albumin 3.5 Globulin 3.90 H Albumin/Globulin Ratio 0.89 Medications Medications Current Medications Carvedilol (Coreg) 3.125 mg BID PO Last administered on 02/24/19 08:32; Admin Dose 3.125 MG; Start 02/23/19 at 09:00 Docusate Sodium (Colace) 100 mg BID PO Last administered on 02/24/19 08:32; Admin Dose 100 MG; Start 02/23/19 at 09:00 Famotidine (Pepcid) 20 mg BID PO Last administered on 02/24/19 08:31; Admin Dose 20 MG; Start 02/23/19 at 09:00 Isosorbide Dinitrate (Isordil) 10 mg TID PO Last administered on 02/24/19 13:59; Admin Dose 10 MG; Start 02/23/19 at 09:00 Nicotine (Nicoderm 21 Mg/ 24hr) 1 patch DAILY TRANSDERM Last administered on 02/24/19 08:33; Admin Dose 1 PATCH; Start 02/23/19 at 09:00 Spironolactone (Aldactone) 25 mg DAILY PO Last administered on 02/24/19at 08:32; Admin Dose 25 MG; Start 02/23/19 at 09:00 IV Flush (NS 3 ml) 3 ml PER PROTOCOL IV ; Start 02/22/19 at 22:30 Ondansetron HCl (Zofran Inj) 4 mg Q6H PRN IV NAUSEA/VOMITING; Start 02/22/19 at 22:30 Nitroglycerin (Nitroglycerin (Sl Tab) 0.4 Mg) 1 tab Q5M PRN SL .CHEST PAIN; S tart 02/22/19 at 22:30 Acetaminophen (Tylenol Tab) 650 mg Q6H PRN PO .PAIN 1-3 OR TEMP; Start 02/22/19 at 22:30 Acetaminophen/ Hydrocodone Bitart ([place] (5/325)) 1 tab Q6H PRN PO .PAIN 4-6 Last administered on 02/24/19at 08:31; Admin Dose 1 TAB; Start 02/22/19 at 22:30 Docusate Sodium (Colace) 100 mg Q12H PRN PO .CONSTIPATION; Start 02/22/19 at 22:30 Bisacodyl (Dulcolax) 5 mg DAILY PRN PO .CONSTIPATION; Start 02/22/19 at 22:30 Enoxaparin Sodium (Lovenox) 90 mg Q12 SC Last administered on 02/24/19at 08:43; Admin Dose 90 MG; Start 02/22/19 at 23:00 Lorazepam (Ativan) 1 mg Q4 PRN IV CONTROL WITHDRAWAL SYMPTOMS Last administered on 02/24/19 00:45; Admin Dose 1 MG; Start 02/23/19 at 03:30 Bumetanide 2 mg/ Dextrose 25 ml @ 50 mls/hr BID DIURETICS IV Last administered on 02/24/19 05:36; Admin Dose 50 MLS/HR; Start 02/23/19 at 04:00 Ipratropium [place] (Atrovent 0.02% (Neb)) 0.5 mg Q6H RESP THERAPY HHN Last administered on 02/24/19at 13:04; Admin Dose 0.5 MG; Start 02/23/19 at 16:30 JOSE AGGARWAL Feb 24, 2019 14:46
--- NOTE | 2019-02-24 15:52 | PN ---
Date/Time of Note Date/Time of Note DATE: 02/24/19 TIME: 15:45 Assessment/Plan VTE Prophylaxis Risk score (from Ns)>0 risk: 10 SCD applied (from Ns): Yes Pharmacological prophylaxis: LMWH Lines/Catheters IV Catheter Type (from Nrs): Peripheral IV Urinary Cath still in place: Yes Reason Cath still needed: other (indicate) Assessment/Plan Assessment/Plan 1 Congestive heart failure, systolic with LVEF 15%, on coreg. decrease bumex, follow up with cardiology 2. Dilated cardiomyopathy 3. History of pulmonary embolism / Left subclavian thrombus / Popiteal DVT: Diagnosed on 12/01/2018, on therapeutic dose of lovenox, will change to oral on discharge 4. Liver cirrhosis: History of hepatitis C, undetectable viral load in 2018, s/p paracentesis with 600 cc fluid on 02/24/2019 5. COPD, neb prn 6. Acute kidney injury, decrease bumex 7. Illicit drug use, advise to quit 8. DVT GI prophylaxis: Lovenox, Result Diagram: 02/24/19 0536 02/24/19 0536 Results 24hrs Laboratory Tests Test 02/24/19 05:36 White Blood Count 11.4 H Red Blood Count 5.29 Hemoglobin 12.9 L Hematocrit 44.2 Mean Corpuscular Volume 83.6 Mean Corpuscular Hemoglobin 24.4 L Mean Corpuscular Hemoglobin Concent 29.2 L Red Cell Distribution Width 20.2 H Platelet Count 541 #H Mean Platelet Volume 10.2 Immature Granulocytes % 0.700 H Neutrophils % 76.5 Lymphocytes % 11.7 L Monocytes % 9.9 Eosinophils % 0.6 Basophils % 0.6 Nucleated Red Blood Cells % 0.0 Immature Granulocytes # 0.080 H Neutrophils # 8.7 H Lymphocytes # 1.3 Monocytes # 1.1 H Eosinophils # 0.1 Basophils # 0.1 Nucleated Red Blood Cells # 0.0 Sodium Level 135 Potassium Level 5.0 Chloride Level 90 L Carbon Dioxide Level 31 Anion Gap 14 H Blood Urea Nitrogen 39 H Creatinine 1.46 H Est Glomerular Filtrat Rate mL/min 51 L Glucose Level 102 Calcium Level 9.2 Total Bilirubin 0.9 Direct Bilirubin 0.00 Indirect Bilirubin 0.9 Aspartate Amino Transf (AST/SGOT) 29 Alanine Aminotransferase (ALT/SGPT) 25 Alkaline Phosphatase 193 H Total Protein 7.4 Albumin 3.5 Globulin 3.90 H Albumin/Globulin Ratio 0.89 Subjective 24 Hr Interval Summary Free Text/Dictation anxious, shortness of breath on minimal movement Exam/Review of Systems Exam Vitals Vital Signs Date Temp Pulse Resp B/P (MAP) Pulse Ox O2 O2 Flow FiO2 Time Delivery Rate 02/24/19 97.6 106 18 124/75 95 15:16 (91) 02/24/19 21 13:04 02/23/19 4.0 16:43 02/23/19 Nasal 08:02 Cannula Intake and Output 02/23/19 02/23/19 02/24/19 1515:00 23:00 07:00 IntakeIntake Total 100 ml 600 ml 1525 ml OutputOutput Total 3100 ml 250 ml 400 ml BalanceBalance -3000 ml 350 ml 1125 ml Constitutional: alert, oriented, well developed Head: normocephalic, atraumatic Eyes: nl conjunctiva, EOMI, nl lids, PERRL ENMT: nl external ears & nose, nl lips & teeth, nl nasal mucosa & septum Neck: supple, non-tender Respiratory: clear to auscultation, diminished breath sounds Cardiovascular: regular rate and rhythm, nl pulses; No bruits, No diastolic murmur, No edema, No gallop, No irregular rhythm, No jugular venous distention (JVD), No murmurs/extra sounds, No rub, No systolic murmur, No S3, No S4, No other Gastrointestinal: soft, nl liver, spleen Musculoskeletal: nl extremities to inspection Extremities: normal pulses; No calf tenderness, No cyanosis, No clubbing, No edema, No pitting pedal edema, No palpable cord, No tenderness, No other Neurological: [employer] II-XII intact, nl mental status, nl speech Results Results 24hrs Laboratory Tests Test 02/24/19 05:36 White Blood Count 11.4 H Red Blood Count 5.29 Hemoglobin 12.9 L Hematocrit 44.2 Mean Corpuscular Volume 83.6 Mean Corpuscular Hemoglobin 24.4 L Mean Corpuscular Hemoglobin Concent 29.2 L Red Cell Distribution Width 20.2 H Platelet Count 541 #H Mean Platelet Volume 10.2 Immature Granulocytes % 0.700 H Neutrophils % 76.5 Lymphocytes % 11.7 L Monocytes % 9.9 Eosinophils % 0.6 Basophils % 0.6 Nucleated Red Blood Cells % 0.0 Immature Granulocytes # 0.080 H Neutrophils # 8.7 H Lymphocytes # 1.3 Monocytes # 1.1 H Eosinophils # 0.1 Basophils # 0.1 Nucleated Red Blood Cells # 0.0 Sodium Level 135 Potassium Level 5.0 Chloride Level 90 L Carbon Dioxide Level 31 Anion Gap 14 H Blood Urea Nitrogen 39 H Creatinine 1.46 H Est Glomerular Filtrat Rate mL/min 51 L Glucose Level 102 Calcium Level 9.2 Total Bilirubin 0.9 Direct Bilirubin 0.00 Indirect Bilirubin 0.9 Aspartate Amino Transf (AST/SGOT) 29 Alanine Aminotransferase (ALT/SGPT) 25 Alkaline Phosphatase 193 H Total Protein 7.4 Albumin 3.5 Globulin 3.90 H Albumin/Globulin Ratio 0.89 Medications Medication Current Medications Docusate Sodium (Colace) 100 mg BID PO Last administered on 02/24/19 08:32; Admin Dose 100 MG; Start 02/23/19 at 09:00 Famotidine (Pepcid) 20 mg BID PO Last administered on 02/24/19 08:31; Admin Dose 20 MG; Start 02/23/19 at 09:00 Isosorbide Dinitrate (Isordil) 10 mg TID PO Last administered on 02/24/19 13:59; Admin Dose 10 MG; Start 02/23/19 at 09:00 Nicotine (Nicoderm 21 Mg/ 24hr) 1 patch DAILY TRANSDERM Last administered on 02/24/19 08:33; Admin Dose 1 PATCH; Start 02/23/19 at 09:00 IV Flush (NS 3 ml) 3 ml PER PROTOCOL IV ; Start 02/22/19 at 22:30 Ondansetron HCl (Zofran Inj) 4 mg Q6H PRN IV NAUSEA/VOMITING Last administered on 02/24/19 15:27; Admin Dose 4 MG; Start 02/22/19 at 22:30 Nitroglycerin (Nitroglycerin (Sl Tab) 0.4 Mg) 1 tab Q5M PRN SL .CHEST PAIN; Start 02/22/19 at 22:30 Acetaminophen (Tylenol Tab) 650 mg Q6H PRN PO .PAIN 1-3 OR TEMP; Start 02/22/19 at 22:30 Acetaminophen/ Hydrocodone Bitart ([place] (5/325)) 1 tab Q6H PRN PO .PAIN 4-6 Last administered on 02/24/19at 08:31; Admin Dose 1 TAB; Start 02/22/19 at 22:30 Docusate Sodium (Colace) 100 mg Q12H PRN PO .CONSTIPATION; Start 02/22/19 at 22:30 Bisacodyl (Dulcolax) 5 mg DAILY PRN PO .CONSTIPATION; Start 02/22/19 at 22:30 Lorazepam (Ativan) 1 mg Q4 PRN IV CONTROL WITHDRAWAL SYMPTOMS Last administered on 02/24/19at 00:45; Admin Dose 1 MG; Start 02/23/19 at 03:30 Bumetanide 2 mg/ Dextrose 25 ml @ 50 mls/hr BID DIURETICS IV Last administered on 02/24/19at 05:36; Admin Dose 50 MLS/HR; Start 02/23/19 at 04:00 Ipratropium [place] (Atrovent 0.02% (Neb)) 0.5 mg Q6H RESP THERAPY HHN Last administered on 02/24/19at 13:04; Admin Dose 0.5 MG; Start 02/23/19 at 16:30 Enoxaparin Sodium (Lovenox) 90 mg DAILY SC ; Start 02/25/19 at 09:00 Spironolactone (Aldactone) 12.5 mg DAILY PO ; Start 02/25/19 at 09:00 Hydralazine HCl (Apresoline) 10 mg Q8 PO ; Start 02/24/19 at 22:00 Carvedilol (Coreg) 6.25 mg BID PO ; Start 02/24/19 at 21:00 JUSTIN PAREKH MD Feb 24, 2019 15:52
[2019-02-24] MEDS: LEVALBUTEROL (NEB) 0.63 MG/3 ML AMP HHN PRN (16:15)
[2019-02-24] MEDS ORDERED: BUMETANIDE 1 MG INJ IV SCH ×3 (16:30→18:00)
[2019-02-24] MEDS: BUMETANIDE 1 MG INJ IV SCH (16:59)
[2019-02-24] MEDS ORDERED: DEXTROSE 50% 50 ML SYRINGE ONE (19:57)
[2019-02-24] MEDS ORDERED: NALOXONE (0.4 MG/ML) INJ ONE (20:28)
[2019-02-24] MEDS ORDERED: DEXTROSE 50% 50 ML SYRINGE IV ONE ×2 (20:30→21:00)
[2019-02-24] MEDS ORDERED: NALOXONE (0.4 MG/ML) INJ IV ONE ×2 (20:30)
[2019-02-24] MEDS ORDERED: FLUMAZENIL 0.5 MG INJ ONE (20:55)
[2019-02-24] MEDS ORDERED: FLUMAZENIL 0.5 MG INJ IV ONE ×2 (21:00→21:30)
[2019-02-24] MEDS ORDERED: LORAZEPAM 2 MG INJ IV ONE (21:30)
--- NOTE | 2019-02-24 23:50 | EN ---
Date/Time of Note Date/Time of Note DATE: 02/24/19 TIME: 20:30 ER Progress Note Consultation note Subjective: I was called to the bedside of this patient in the ICU for consideration of intubation. Briefly, this is a 48-year-old male with a past medical history of IV drug use who is presenting with volume overload and a CHF exacerbation. In the hospital, he was found acute renal failure as well. The patient also has a history of pulmonary embolism that is currently being treated with Lovenox. The patient reportedly had become very lethargic and was reportedly hypoxic on the floor. He was transferred to the ICU and the primary physician wanted him assessed for the possibility of intubation. The patient was lethargic but easily arousable. The patient does seem slightly confused, but he knows his name. He is able to follow commands with all extremities. And he opens his eyes spontaneously. The patient was on a nonrebreather mask and oxygenating in the high 90s. The patient had bibasilar rales on exam but otherwise the breath sounds were full and clear. I did not receive a call from the primary physician directly to indicate the reason for intubation. When I was at bedside, the nurse and the respiratory therapist provided detail. Family history: As indicated on the initial history and physical of this visit Objective: Vital signs reviewed Const: Well-developed, well-nourished Head: Normocephalic, Atraumatic Eyes: Normal Conjunctiva. ENT: Normal External Ears, Nose and Mouth. Neck: No meningismus. Resp: Bibasilar coarse rales Cardio: Regular rate and rhythm. Abd: Non distended Skin: No petechiae or rashes Ext: No cyanosis, or edema Neur: Lethargic but easily arousable, oriented 1. No facial droop. Normal strength and sensation. Opens eyes spontaneously. Follows all commands. GCS 14 Assessment: Respiratory distress Plan: The patient was evaluated fully. The patient's GCS is currently 14. There is concern about the patient's ability to protect his airway, which is ultimately why he was transferred to the ICU. Upon my arrival, I do not feel that the patient is in imminent danger of airway compromise. I do not feel the patient requires emergent intubation at this time. According to the nursing staff and the respiratory therapist, the patient was far more communicative with me. The patient was oxygenating in the high 90s on a nonrebreather. I do feel that this may continue. If the patient does develop worsening pulmonary edema, I do feel that a trial of BiPAP may be appropriate. I discussed my thoughts with the ICU staff and the respiratory therapist at bedside. Given the improvement in the patient's symptoms, it was agreed that this was an appropriate course of action. The patient's primary physician may call the emergency department at anytime to discuss the case, including if the need for possible intubation arises again. ADEN LÓPEZ MD Feb 24, 2019 23:50
[2019-02-25] VITALS (38 sets, daily range): BP systolic 90–135; BP diastolic 62–95; PULSE 85–140; RESP 17–28
[2019-02-25] MEDS: HALOPERIDOL 5 MG INJ IM PRN (04:35)
[2019-02-25] MEDS: BUMETANIDE 1 MG INJ IV SCH ×2 (05:06→18:23)
[2019-02-25] MEDS: BALSAM PERU/CASTOR OIL 60 GM TUBE TOP SCH (09:55)
[2019-02-25] MEDS: ISOSORBIDE DINITRATE 10 MG TAB PO SCH ×3 (09:55→21:10)
[2019-02-25] MEDS: DOCUSATE SODIUM 100 MG CAP PO SCH ×2 (09:55→21:08)
[2019-02-25] MEDS: FAMOTIDINE 20 MG TAB PO SCH ×2 (09:55→21:08)
[2019-02-25] MEDS: SPIRONOLACTONE 25 MG TAB PO SCH (09:55)
[2019-02-25] MEDS: ENOXAPARIN 100 MG/ML SYG SC SCH (09:56)
[2019-02-25] MEDS: NICOTINE (21 MG/24 HR) PATCH TRANSDERM SCH (10:02)
--- NOTE | 2019-02-25 10:11 | PN ---
Date/Time of Note Date/Time of Note DATE: 02/25/19 TIME: 09:59 Assessment/Plan VTE Prophylaxis Risk score (from Nsg)>0 risk: 10 SCD applied (from Nsg): Yes Pharmacological prophylaxis: LMWH Lines/Catheters IV Catheter Type (from Nrsg): Peripheral IV Urinary Cath still in place: Yes Reason Cath still needed: other (indicate) (monitor uop) Assessment/Plan Assessment/Plan 48 yo man history of hep C cirrhosis, CHF, PE and DVT presents in CHF exacerbation. #Acute encephalopathy #Acute hypoxia - Both occurred the evening of 02/24. - Patient transferred to ICU, protecting airway, but very lethargic. - Had recent illicit drug use, uTox positive for meth, cannabis, and opiates. And last night got haloperidol. - Currently concerning for metabolic or septic encephalopathy - Will get ABG and lactic acid. - Will get CT head, chest, abdomen/pelvis. # Acute on chronic Systolic heart failure exacerbation: - Previous echocardiogram showed an ejection fraction of approximately 10 to 15%. - Bumex 1mg IV BID - Appears to be reaching euvolemia - Dr. Vazquez following. - Cont coreg, isordil. # History of pulmonary embolism / Left subclavian thrombus / Popiteal DVT: - Diagnosed on 12/01/2018. - Currently on subQ lovenox for poor renal function and inability to tolerate PO # Abdominal ascites: - Got therapeutic paracentesis earlier this admission. Studies not sent. # Liver cirrhosis: History of hepatitis C. We will check liver function test. Patient does have what appears to be abdominal ascites. We will continue diuresis. Will obtain abdominal ultrasound to assess degree of ascites for possible paracentesis. Undetectable viral load in 2018. Follow-up as an outpatient. Check ammonia level. # Chronic kidney disease: - Worsened after admission, now slightly improving. # COPD: PRN breathing treatments as indicated, DVT: lovenox GI: None 45 minutes critical care time spent on this patient. Result Diagram: 02/25/1944502/25/19445 Subjective 24 Hr Interval Summary Free Text/Dictation Overnight, apparently the patient developed acute hypoxemia and lethargy. Transferred to ICU and intubation was considered; but he was protecting his airway. This morning on my exam the patient is obtunded with occasional jerking movements of arms and legs. With loud verbal stimulation he does grunt and opens his eyes on command, and say "my eyes are open". Squeezes hand on command. Does not follow other commands and falls back asleep quickly. Saturating low 90s on nasal cannula, protecting airway but has agonal-like gasping breathing. Exam/Review of Systems Exam Vitals Vital Signs Date Temp Pulse Resp B/P (MAP) Pulse Ox O2 O2 Flow FiO2 Time Delivery Rate 02/25/19 97.7 08:50 02/25/19 93 08:00 02/25/19 20 129/80 100 Nasal 06:00 (96) Cannula 02/25/19 4.0 05:00 02/24/19 50 21:11 Intake and Output 02/24/19 02/24/19 02/25/19 1515:00 23:00 07:00 IntakeIntake Total 1400 ml OutputOutput Total 200 ml 680 ml BalanceBalance 1400 ml -200 ml -680 ml Exam General: Patient is currently lying in bed, minimally responsive, agonal type breathing. HEENT: Atraumatic, normocephalic. Neck: Supple with full range of motion. No rigidity or meningismus Chest: Nontender Lungs: Shallow breathing, poor respiratory effort. No adventitious lung sounds heard. Heart: Normal S1-S2, Regular rhythm and rate. No murmur, S3, or S4 Abdomen: Soft , distended, tympanic. No bowel sounds heard. Extremities: 1+ pitting edema bilateral lower extremities Neurologic: Lethargic. Follows some commands when loudly spoken. Does not answer most questions. Results Results 24hrs Laboratory Tests Test 02/24/19 18:27 02/24/19 18:28 02/24/19 19:52 02/24/19 20:08 Bedside Glucose 75 34 *L 107 Blood Gas Blood arterial Specimen Source Arterial Blood 02/24/2019 7:15: Date Drawn 38 PM Arterial Blood 7.247 *L pH (Temp corrected) Arterial Blood 49.1 H pCO2 (Temp correct) Arterial Blood 176.8 H pO2 (Temp corrected) Arterial Blood 20.9 L HCO3 Arterial Blood -6.6 L Base Excess Arterial Blood 99.1 H Oxygen Saturatio n [place] Test N/A Arterial Blood Right Brachial Gas Puncture Site Arterial 1.1 Blood Carboxyhem oglobin Arterial Blood 0.3 Methemoglobin Blood Gas A-a O2 487.1 H Differential Oxyhemoglobin 97.7 Percent Blood Gas 37.0 Temperature Blood Gas MASK - NRB Modality FiO2 100.0 Blood Gas ABALLOUIANTS RN Critical Value Read Back Blood Gas MA Notified Whom Blood Gas 02/24/2019 7:27: Notified Time 53 PM Test 02/24/19 20:21 02/24/19 20:33 02/24/19 20:40 02/24/19 20:47 Bedside Glucose 75 164 143 Blood Gas Blood arterial Specimen Source Arterial Blood 02/24/2019 8:50: Date Drawn 12 PM Arterial Blood 7.323 L pH (Temp corrected) Arterial Blood 46.7 H pCO2 (Temp correct) Arterial Blood 75.6 L pO2 (Temp corrected) Arterial Blood 23.7 HCO3 Arterial Blood -2.6 Base Excess Arterial Blood 93.0 L Oxygen Saturatio n [place] Test N/A Arterial Blood Right Brachial Gas Puncture Site Arterial 1.1 Blood Carboxyhem oglobin Arterial Blood 0.3 Methemoglobin Blood Gas A-a O2 148.7 H Differential Oxyhemoglobin 91.7 L Percent Blood Gas 37.0 Temperature Blood Gas NASAL CANNULA Modality FiO2 39.0 Blood Gas MG Notified Whom Blood Gas 02/24/2019 9:00: Notified Time 46 PM Test 02/24/19 20:58 02/24/19 21:55 02/25/19 04:46 02/25/19 05:00 White Blood 12.0 H 13.2 H Count Red Blood Count 5.39 5.27 Hemoglobin 13.2 L 12.8 L Hematocrit 44.6 42.6 Mean Corpuscular 82.7 80.8 L Volume Mean Corpuscular 24.5 L 24.3 L Hemoglobin Mean Corpuscular 29.6 L 30.0 L Hemoglobin Bing nt Red Cell 20.1 H 20.0 H Distribution Width Platelet Count 496 H 396 # Mean Platelet 10.1 9.8 Volume Immature 0.900 H 0.600 H Granulocytes % Neutrophils % 86.1 H 84.8 H Lymphocytes % 7.0 L 7.8 L Monocytes % 5.5 6.4 Eosinophils % 0.1 0.1 Basophils % 0.4 0.3 Nucleated Red 0.0 0.0 Blood Cells % Immature 0.110 H 0.080 H Granulocytes # Neutrophils # 10.3 H 11.2 H Lymphocytes # 0.8 1.0 Monocytes # 0.7 0.8 Eosinophils # 0.0 0.0 Basophils # 0.1 0.0 Nucleated Red 0.0 0.0 Blood Cells # Sodium Level 134 L 135 Potassium Level 5.3 H 4.6 Chloride Level 90 L 92 L Carbon Dioxide 27 30 Level Anion Gap 17 H 13 Blood Urea 48 H 52 H Nitrogen Creatinine 2.03 H 1.83 H Est Glomerular 35 L 39 L Filtrat Rate mL/min Glucose Level 133 121 Calcium Level 9.6 9.5 Total Bilirubin 0.9 Direct Bilirubin 0.00 Indirect 0.9 Bilirubin Aspartate Amino 56 #H Transf (AST/SGOT ) Alanine 31 Aminotransferase (ALT/SGPT) Alkaline 165 H Phosphatase Total Protein 6.9 Albumin 3.3 Globulin 3.60 H Albumin/Globulin 0.91 Ratio Bedside Glucose 128 Medications Medication Current Medications Docusate Sodium (Colace) 100 mg BID PO Last administered on 02/24/19 08:32; Admin Dose 100 MG; Start 02/23/19 at 09:00 Famotidine (Pepcid) 20 mg BID PO Last administered on 02/24/19 08:31; Admin Dose 20 MG; Start 02/23/19 at 09:00 Isosorbide Dinitrate (Isordil) 10 mg TID PO Last administered on 02/24/19 13:59; Admin Dose 10 MG; Start 02/23/19 at 09:00 Nicotine (Nicoderm 21 Mg/ 24hr) 1 patch DAILY TRANSDERM Last administered on 02/24/19 08:33; Admin Dose 1 PATCH; Start 02/23/19 at 09:00 IV Flush (NS 3 ml) 3 ml PER PROTOCOL IV ; Start 02/22/19 at 22:30 Ondansetron HCl (Zofran Inj) 4 mg Q6H PRN IV NAUSEA/VOMITING Last administered on 02/24/19 15:27; Admin Dose 4 MG; Start 02/22/19 at 22:30 Nitroglycerin (Nitroglycerin (Sl Tab) 0.4 Mg) 1 tab Q5M PRN SL .CHEST PAIN; Start 02/22/19 at 22:30 Acetaminophen (Tylenol Tab) 650 mg Q6H PRN PO .PAIN 1-3 OR TEMP; Start 02/22/19 at 22:30 Acetaminophen/ Hydrocodone Bitart ([place] (5/325)) 1 tab Q6H PRN PO .PAIN 4-6 Last administered on 02/24/19at 08:31; Admin Dose 1 TAB; Start 02/22/19 at 22:30 Docusate Sodium (Colace) 100 mg Q12H PRN PO .CONSTIPATION; Start 02/22/19 at 22:30 Bisacodyl (Dulcolax) 5 mg DAILY PRN PO .CONSTIPATION; Start 02/22/19 at 22:30 Enoxaparin Sodium (Lovenox) 90 mg DAILY SC Last administered on 02/25/19at 09:56; Admin Dose 90 MG; Start 02/25/19 at 09:00 Spironolactone (Aldactone) 12.5 mg DAILY PO ; Start 02/25/19 at 09:00 Hydralazine HCl (Apresoline) 10 mg Q8 PO ; Start 02/24/19 at 22:00 Carvedilol (Coreg) 6.25 mg BID PO ; Start 02/24/19 at 21:00 Ipratropium [place] (Atrovent 0.02% (Neb)) 0.5 mg Q4H RESP THERAPY PRN HHN sob; Start 02/24/19 at 16:30 Levalbuterol (Xopenex Neb) 0.63 mg Q4H RESP THERAPY PRN HHN sob Last administered on 02/24/19at 16:15; Admin Dose 0.63 MG; Start 02/24/19 at 16:00 Bumetanide (Bumex) 1 mg BID DIURETICS IV Last administered on 02/25/19at 05:06; Admin Dose 1 MG; Start 02/24/19 at 16:47 Haloperidol (Haldol) 5 mg Q6 PRN IM AGITATION/ANXIETY Last administered on 02/25/19at 04:35; Admin Dose 5 MG; Start 02/24/19 at 21:30 Miscellaneous Information Patients own medicat... BID@10, XX ; Start 02/25/19 at 10:00 JOSE BRADY MD Feb 25, 2019 10:10
--- NOTE | 2019-02-25 11:03 | CONS ---
Assessment/Plan Assessment/Plan Assessment/Plan (Daily) Chest x-ray showing cardiomegaly with bilateral pleural effusions more pronounced prominent on the left side. ABG is showing very minimal hypercapnia with preserved pH. Assessment and recommendations; 1. Patient admitted with recurrent CHF exacerbation due to underlying severe cardiomyopathy. Doing fairly well on BiPAP. 2. Acute encephalopathy. 3. Chronic renal insufficiency. 4. History of hypertension. 5. History of cirrhosis due to hepatitis C. 6. COPD. 7. Likely underlying sleep apnea as well. Continue current supportive care. Continue BiPAP. Prognosis is guarded. Consultation Date/Type/Reason Admit Date/Time Feb 22, 2019 at 20:25 Date of Consultation: Feb 25, 2019 Type of Consult Pulmonary/critical care Patient is a 48-year-old male who was admitted to the hospital with shortness of breath. Patient has a history of severe cardiomyopathy and CHF. Patient was transferred to ICU from medical floor because of decompensation. Patient has been on BiPAP. Patient also was recently discharged from [facility] for similar symptoms and diagnosis. Past medical history; next 1. History of severe cardiomyopathy with multiple admissions at various hospitals. 2. Likely underlying sleep apnea. 3. Chronic renal insufficiency. 4. Hypertension. 5. Liver cirrhosis due to hep C. 6. COPD. 7. History of pulmonary embolism. Medications; reviewed. Allergies; none. Socially; patient has a history of smoking. Family history; noncontributory. Occupational history; patient is on disability. Review of system; unable to be obtained. General exam; middle-aged male, obese, on BiPAP. Currently noncommunicative. Date/Time of Note DATE: 02/25/19 TIME: 10:59 Past Medical History Home Meds Active Scripts Rivaroxaban* (Xarelto*) 20 Mg Tablet, 20 MG PO WITH DINNER, #30 TAB 2 Refills don't start before 02/03/19 Prov:ARMAND FERMIN 01/12/19 Rivaroxaban* (Xarelto*) 15 Mg Tablet, 15 MG PO BID for 21 Days, #42 TAB till 02/02/19 Prov:ARMAND FERMIN. 01/12/19 Famotidine* (Famotidine*) 20 Mg Tablet, 20 MG PO BID, #60 TAB 2 Refills Prov:ARMAND FERMIN 01/12/19 Docusate Sodium* (Colace*) 100 Mg Capsule, 100 MG PO BID for 30 Days, #60 CAP 2 Refills Prov:ARMAND FERMIN 01/12/19 Acetazolamide* (Acetazolamide*) 250 Mg Tablet, 250 MG PO DAILY, #30 TAB [facility] 01/12/19 Spironolactone* (Aldactone*) 25 Mg Tablet, 25 MG PO DAILY, #30 TAB 2 Refills [facility] 01/12/19 Isosorbide Dinitrate* (Isordil*) 10 Mg Tablet, 10 MG PO TID, #90 TAB 2 [facility] 01/12/19 Carvedilol* (Carvedilol*) 6.25 Mg Tablet, 3.25 MG PO BID, #60 TAB 2 Refills Prov:[facility] 01/12/19 Nicotine* (Nicotine* Patch) 21 mg/day Patch, 1 PATCH TRANSDERM DAILY, #30 PATCH 2 Refills Prov[facility] 01/12/19 Levofloxacin* (Levofloxacin*) 500 Mg Tablet, 500 MG PO DAILY, #14 TAB stop when pills run out or on 01/19/19 Prov[facility] 01/12/19 Hydrocodone/Acetaminophen (Hydrocodone-Acetamin 10-325 mg) 1 Each Tablet, 1 TAB PO Q4H PRN for MODERATE PAIN LEVEL 4-6, #20 TAB Prov:JOSE BRADY MD 12/04/18 Albuterol Sulfate* (Proair HFA*) 8.5 Gm Hfa.aer.ad, 2 PUFF INH Q6 for SOB, #1 INHALER Prov:JOSE BRADY MD 12/04/18 Furosemide* (Lasix*) 40 Mg Tablet, 40 MG PO BID for 30 Days, #60 TAB 1 Refill Take with Aldactone at the same time, take evening dose of before 6 PM as to not effect your sleep Prov:DAMEON MADRIGAL MD 11/21/18 Reported Medications Aspirin Ec (Aspir 81) 81 Mg Tablet.dr, 81 MG PO DAILY, #30 TAB 11/03/18 Medications Current Medications Docusate Sodium (Colace) 100 mg BID PO Last administered on 02/24/19 08:32; Admin Dose 100 MG; Start 02/23/19 at 09:00 Famotidine (Pepcid) 20 mg BID PO Last administered on 02/24/19 08:31; Admin Dose 20 MG; Start 02/23/19 at 09:00 Isosorbide Dinitrate (Isordil) 10 mg TID PO Last administered on 02/24/19 13:59; Admin Dose 10 MG; Start 02/23/19 at 09:00 Nicotine (Nicoderm 21 Mg/ 24hr) 1 patch DAILY TRANSDERM Last administered on 02/25/19 10:02; Admin Dose 1 PATCH; Start 02/23/19 at 09:00 IV Flush (NS 3 ml) 3 ml PER PROTOCOL IV ; Start 02/22/19 at 22:30 Ondansetron HCl (Zofran Inj) 4 mg Q6H PRN IV NAUSEA/VOMITING Last administered on 02/24/19 15:27; Admin Dose 4 MG; Start 02/22/19 at 22:30 Nitroglycerin (Nitroglycerin (Sl Tab) 0.4 Mg) 1 tab Q5M PRN SL .CHEST PAIN; Start 02/22/19 at 22:30 Acetaminophen (Tylenol Tab) 650 mg Q6H PRN PO .PAIN 1-3 OR TEMP; Start 02/22/19 at 22:30 Acetaminophen/ Hydrocodone Bitart ([place] (5/325)) 1 tab Q6H PRN PO .PAIN 4-6 Last administered on 02/24/19 08:31; Admin Dose 1 TAB; Start 02/22/19 at 22:30 Docusate Sodium (Colace) 100 mg Q12H PRN PO .CONSTIPATION; Start 02/22/19 at 2 2:30 Bisacodyl (Dulcolax) 5 mg DAILY PRN PO .CONSTIPATION; Start 02/22/19 at 22:30 Enoxaparin Sodium (Lovenox) 90 mg DAILY SC Last administered on 02/25/19 09:56; Admin Dose 90 MG; Start 02/25/19 at 09:00 Spironolactone (Aldactone) 12.5 mg DAILY PO ; Start 02/25/19 at 09:00 Hydralazine HCl (Apresoline) 10 mg Q8 PO ; Start 02/24/19 at 22:00 Carvedilol (Coreg) 6.25 mg BID PO ; Start 02/24/19 at 21:00 Ipratropium [place] (Atrovent 0.02% (Neb)) 0.5 mg Q4H RESP THERAPY PRN HHN sob; Start 02/24/19 at 16:30 Levalbuterol (Xopenex Neb) 0.63 mg Q4H RESP THERAPY PRN HHN sob Last administered on 02/24/19at 16:15; Admin Dose 0.63 MG; Start 02/24/19 at 16:00 Bumetanide (Bumex) 1 mg BID DIURETICS IV Last administered on 02/25/19at 05:06; Admin Dose 1 MG; Start 02/24/19 at 16:47 Haloperidol (Haldol) 5 mg Q6 PRN IM AGITATION/ANXIETY Last administered on 02/25/19at 04:35; Admin Dose 5 MG; Start 02/24/19 at 21:30 Miscellaneous Information Patients own medicat... BID@10,16 XX ; Start 02/25/19 at 10:00 Allergies: Coded Allergies: No Known Drug Allergies (Verified Allergy, Unknown, 01/05/19) Social History Smoking Status: Current some day smoker Exam/Review of Systems Exam Vitals Vital Signs Date Temp Pulse Resp B/P (MAP) Pulse Ox O2 O2 Flow FiO2 Time Delivery Rate 02/25/19 97.7 08:50 02/25/19 93 08:00 02/25/19 20 129/80 100 Nasal 06:00 (96) Cannula 02/25/19 4.0 05:00 02/24/19 50 21:11 Intake and Output 02/24/19 02/24/19 02/25/19 1515:00 23:00 07:00 IntakeIntake Total 1400 ml OutputOutput Total 200 ml 680 ml BalanceBalance 1400 ml -200 ml -680 ml Exam H EENT exam; supple neck, positive JVD. No lymphadenopathy. Midline trachea. No thyromegaly. On BiPAP. Chest exam; diminished breath sounds bilaterally. S1-S2 audible, no murmurs. Abdomen exam; soft, protuberant. No organomegaly. Bowel sounds are audible. Extremity exam; bilateral lower extremity chronic skin changes with trace edema. CASH MANAGEMENT CLERK exam; patient is obtunded. Results Result Diagram: 02/25/19 0446 02/25/19 0446 Results 24hrs Laboratory Tests Test 02/24/19 18:27 02/24/19 18:28 02/24/19 19:52 02/24/19 20:08 Bedside Glucose 75 34 *L 107 Blood Gas Blood arterial Specimen Source Arterial Blood 02/24/2019 7:15: Date Drawn 38 PM Arterial Blood 7.247 *L pH (Temp corrected ) Arterial Blood 49.1 H pCO2 (Temp correct) Arterial Blood 176.8 H pO2 (Temp corrected ) Arterial Blood 20.9 L HCO3 Arterial Blood -6.6 L Base Excess Arterial Blood 99.1 H Oxygen Saturati on [place] Test N/A Arterial Blood Right Brachial Gas Puncture Site Arterial 1.1 Blood Carboxyhe moglobin Arterial Blood 0.3 Methemoglobin Blood Gas A-a 487.1 H O2 Differential Oxyhemoglobin 97.7 Percent Blood Gas 37.0 Temperature Blood Gas MASK - NRB Modality FiO2 100.0 Blood Gas ABALLOUIANTS RN Critical Value Read Back Blood Gas MA Notified Whom Blood Gas 02/24/2019 7:27: Notified Time 53 PM Test 02/24/19 20:21 02/24/19 20:33 02/24/19 20:40 02/24/19 20:47 Bedside Glucose 75 164 143 Blood Gas Blood Specimen arterial Source Arterial Blood 02/24/2019 8:50 Date Drawn :12 PM Arterial Blood 7.323 L pH (Temp corrected ) Arterial Blood 46.7 H pCO2 (Temp correct) Arterial Blood 75.6 L pO2 (Temp corrected ) Arterial Blood 23.7 HCO3 Arterial Blood -2.6 Base Excess Arterial Blood 93.0 L Oxygen Saturati on [place] Test N/A Arterial Blood Right Gas Brachial Puncture Site Arterial 1.1 Blood Carboxyhe moglobin Arterial Blood 0.3 Methemoglobin Blood Gas A-a 148.7 H O2 Differential Oxyhemoglobin 91.7 L Percent Blood Gas 37.0 Temperature Blood Gas NASAL CANNULA Modality FiO2 39.0 Blood Gas MG Notified Whom Blood Gas 02/24/2019 9:00 Notified Time :46 PM Test 02/24/19 20:58 02/24/19 21:55 02/25/19 04:46 02/25/19 05:00 White Blood 12.0 H 13.2 H Count Red Blood Count 5.39 5.27 Hemoglobin 13.2 L 12.8 L Hematocrit 44.6 42.6 Mean 82.7 80.8 L Corpuscular Volume Mean 24.5 L 24.3 L Corpuscular Hemoglobin Mean 29.6 L 30.0 L Corpuscular Hemoglobin Conc ent Red Cell 20.1 H 20.0 H Distribution Width Platelet Count 496 H 396 # Mean Platelet 10.1 9.8 Volume Immature 0.900 H 0.600 H Granulocytes % Neutrophils % 86.1 H 84.8 H Lymphocytes % 7.0 L 7.8 L Monocytes % 5.5 6.4 Eosinophils % 0.1 0.1 Basophils % 0.4 0.3 Nucleated Red 0.0 0.0 Blood Cells % Immature 0.110 H 0.080 H Granulocytes # Neutrophils # 10.3 H 11.2 H Lymphocytes # 0.8 1.0 Monocytes # 0.7 0.8 Eosinophils # 0.0 0.0 Basophils # 0.1 0.0 Nucleated Red 0.0 0.0 Blood Cells # Sodium Level 134 L 135 Potassium Level 5.3 H 4.6 Chloride Level 90 L 92 L Carbon Dioxide 27 30 Level Anion Gap 17 H 13 Blood Urea 48 H 52 H Nitrogen Creatinine 2.03 H 1.83 H Est Glomerular 35 L 39 L Filtrat Rate mL/min Glucose Level 133 121 Calcium Level 9.6 9.5 Total Bilirubin 0.9 Direct 0.00 Bilirubin Indirect 0.9 Bilirubin Aspartate Amino 56 #H Transf (AST/SGO T) Alanine 31 Aminotransferas e (ALT/SGPT) Alkaline 165 H Phosphatase Total Protein 6.9 Albumin 3.3 Globulin 3.60 H Albumin/Globuli 0.91 n Ratio Bedside Glucose 128 Test 02/25/19 10:00 Blood Gas Blood arterial Specimen Source Arterial Blood 02/25/2019 10:45 Date Drawn :05 AM Arterial Blood 7.455 H pH (Temp corrected ) Arterial Blood 46.7 H pCO2 (Temp correct) Arterial Blood 122.9 H pO2 (Temp corrected ) Arterial Blood 32.1 H HCO3 Arterial Blood 7.1 H Base Excess Arterial Blood 98.5 H Oxygen Saturati on [place] Test ACCEPTAB Arterial Blood Left Radial Gas Puncture Site Arterial 1.0 Blood Carboxyhe moglobin Arterial Blood 0.4 Methemoglobin Blood Gas A-a 181.1 H O2 Differential Oxyhemoglobin 97.1 Percent Blood Gas 37.0 Temperature Blood Gas 18.0 Respiration Rate Blood Gas 20 Actual Respiration Rat e Blood Gas MASK - BIPAP Modality FiO2 50.0 Blood Gas 10 Pressure Support Blood Gas 15/5 IPAP/EPAP Ratio Blood Gas TM Notified Whom Blood Gas 02/25/2019 10:55 Notified Time :59 AM Medications Medication Current Medications Docusate Sodium (Colace) 100 mg BID PO Last administered on 02/24/19 08:32; Admin Dose 100 MG; Start 02/23/19 at 09:00 Famotidine (Pepcid) 20 mg BID PO Last administered on 02/24/19 08:31; Admin Dose 20 MG; Start 02/23/19 at 09:00 Isosorbide Dinitrate (Isordil) 10 mg TID PO Last administered on 02/24/19 13:59; Admin Dose 10 MG; Start 02/23/19 at 09:00 Nicotine (Nicoderm 21 Mg/ 24hr) 1 patch DAILY TRANSDERM Last administered on 02/25/19 10:02; Admin Dose 1 PATCH; Start 02/23/19 at 09:00 IV Flush (NS 3 ml) 3 ml PER PROTOCOL IV ; Start 02/22/19 at 22:30 Ondansetron HCl (Zofran Inj) 4 mg Q6H PRN IV NAUSEA/VOMITING Last administered on 02/24/19 15:27; Admin Dose 4 MG; Start 02/22/19 at 22:30 Nitroglycerin (Nitroglycerin (Sl Tab) 0.4 Mg) 1 tab Q5M PRN SL .CHEST PAIN; Start 02/22/19 at 22:30 Acetaminophen (Tylenol Tab) 650 mg Q6H PRN PO .PAIN 1-3 OR TEMP; Start 02/22/19 at 22:30 Acetaminophen/ Hydrocodone Bitart ([place] (5/325)) 1 tab Q6H PRN PO .PAIN 4-6 Last administered on 02/24/19 08:31; Admin Dose 1 TAB; Start 02/22/19 at 22:30 Docusate Sodium (Colace) 100 mg Q12H PRN PO .CONSTIPATION; Start 02/22/19 at 22:30 Bisacodyl (Dulcolax) 5 mg DAILY PRN PO .CONSTIPATION; Start 02/22/19 at 22:30 Enoxaparin Sodium (Lovenox) 90 mg DAILY SC Last administered on 02/25/19at 0 9:56; Admin Dose 90 MG; Start 02/25/19 at 09:00 Spironolactone (Aldactone) 12.5 mg DAILY PO ; Start 02/25/19 at 09:00 Hydralazine HCl (Apresoline) 10 mg Q8 PO ; Start 02/24/19 at 22:00 Carvedilol (Coreg) 6.25 mg BID PO ; Start 02/24/19 at 21:00 Ipratropium [place] (Atrovent 0.02% (Neb)) 0.5 mg Q4H RESP THERAPY PRN HHN sob; Start 02/24/19 at 16:30 Levalbuterol (Xopenex Neb) 0.63 mg Q4H RESP THERAPY PRN HHN sob Last administered on 02/24/19at 16:15; Admin Dose 0.63 MG; Start 02/24/19 at 16:00 Bumetanide (Bumex) 1 mg BID DIURETICS IV Last administered on 02/25/19at 05:06; Admin Dose 1 MG; Start 02/24/19 at 16:47 Haloperidol (Haldol) 5 mg Q6 PRN IM AGITATION/ANXIETY Last administered on 02/25/19at 04:35; Admin Dose 5 MG; Start 02/24/19 at 21:30 Miscellaneous Information Patients own medicat... BID@10,16 XX ; Start 02/25/19 at 10:00 SHABNAM CHINO Feb 25, 2019 11:03
--- NOTE | 2019-02-25 11:41 | CONS ---
Assessment/Plan Assessment/Plan Hospital Course (Demo Recall) IMP: 1.CHF-systolic acute on chronic 2.Cardiomyoppathy-EF 15-20% 3.orthopnea/CURRY 4.NSVT 5.ARF 6.H/O substance abuse 7.Cirrhosis/ascites Recc: -Tele -Continue bumex diuresis but slowed down yesterday given onset of renal failure -Continue aldactone and follow K closely -Continue coreg and hydralazine afterload reduction in lieu of ACEI given renal failure -Continue isordil -Continue lovenox SQ daily until renal function improves -check Mg and replete as necessary Consultation Date/Type/Reason Admit Date/Time Feb 22, 2019 at 20:25 Initial Consult Date 02/23/19 Type of Consult Cardiology Reason for Consultation CHF Requesting Provider: JUSTIN PAREKH MD Date/Time of Note DATE: 02/25/19 TIME: 11:36 Exam/Review of Systems Vital Signs Vitals Vital Signs Date Temp Pulse Resp B/P (MAP) Pulse Ox O2 O2 Flow FiO2 Time Delivery Rate 02/25/19 97.7 08:50 02/25/19 93 08:00 02/25/19 20 129/80 100 Nasal 06:00 (96) Cannula 02/25/19 4.0 05:00 02/24/19 50 21:11 Intake and Output 02/24/19 02/24/19 02/25/19 1515:00 23:00 07:00 IntakeIntake Total 1400 ml OutputOutput Total 200 ml 680 ml BalanceBalance 1400 ml -200 ml -680 ml Exam Exam Review of Systems: CONSTITUTIONAL: No fevers, chills. PULMONARY: hypoxia on BIPAP CARDIOVASCULAR: No chest pain/palpitations GASTROINTESTINAL: No nausea/vomiting. GENITOURINARY: No hematuria/dysuria. MUSCULOSKELETAL: No myagias/arthalgias. PSYCHIATRIC: The patient denies depression. NEUROLOGIC: encephalopathic Constitutional: other (BIPAP in place) Psych: no complaints Head: normocephalic ENMT: mucosa pink and moist Neck: supple, jvd Respiratory: diminished breath sounds Cardiovascular: regular rate and rhythm Gastrointestinal: soft, non-tender Musculoskeletal: muscle weakness (mild generalized) Extremities: edema (none) Neurological: other (No focal deficits) Labs Result Diagram: 02/25/196 02/25/196 Results 24hrs Laboratory Tests Test 02/24/19 18:27 02/24/19 18:28 02/24/19 19:52 02/24/19 20:08 Bedside Glucose 75 34 *L 107 Blood Gas Blood arterial Specimen Source Arterial Blood 02/24/2019 7:15: Date Drawn 38 PM Arterial Blood 7.247 *L pH (Temp corrected ) Arterial Blood 49.1 H pCO2 (Temp correct) Arterial Blood 176.8 H pO2 (Temp corrected ) Arterial Blood 20.9 L HCO3 Arterial Blood -6.6 L Base Excess Arterial Blood 99.1 H Oxygen Saturati on [place] Test N/A Arterial Blood Right Brachial Gas Puncture Site Arterial 1.1 Blood Carboxyhe moglobin Arterial Blood 0.3 Methemoglobin Blood Gas A-a 487.1 H O2 Differential Oxyhemoglobin 97.7 Percent Blood Gas 37.0 Temperature Blood Gas MASK - NRB Modality FiO2 100.0 Blood Gas ABALLOUIANTS RN Critical Value Read Back Blood Gas MA Notified Whom Blood Gas 02/24/2019 7:27: Notified Time 53 PM Test 02/24/19 20:21 02/24/19 20:33 02/24/19 20:40 02/24/19 20:47 Bedside Glucose 75 164 143 Blood Gas Blood Specimen arterial Source Arterial Blood 02/24/2019 8:50 Date Drawn :12 PM Arterial Blood 7.323 L pH (Temp corrected ) Arterial Blood 46.7 H pCO2 (Temp correct) Arterial Blood 75.6 L pO2 (Temp corrected ) Arterial Blood 23.7 HCO3 Arterial Blood -2.6 Base Excess Arterial Blood 93.0 L Oxygen Saturati on [place] Test N/A Arterial Blood Right Gas Brachial Puncture Site Arterial 1.1 Blood Carboxyhe moglobin Arterial Blood 0.3 Methemoglobin Blood Gas A-a 148.7 H O2 Differential Oxyhemoglobin 91.7 L Percent Blood Gas 37.0 Temperature Blood Gas NASAL CANNULA Modality FiO2 39.0 Blood Gas MG Notified Whom Blood Gas 02/24/2019 9:00 Notified Time :46 PM Test 02/24/19 20:58 02/24/19 21:55 02/25/19 04:46 02/25/19 05:00 White Blood 12.0 H 13.2 H Count Red Blood Count 5.39 5.27 Hemoglobin 13.2 L 12.8 L Hematocrit 44.6 42.6 Mean 82.7 80.8 L Corpuscular Volume Mean 24.5 L 24.3 L Corpuscular Hemoglobin Mean 29.6 L 30.0 L Corpuscular Hemoglobin Conc ent Red Cell 20.1 H 20.0 H Distribution Width Platelet Count 496 H 396 # Mean Platelet 10.1 9.8 Volume Immature 0.900 H 0.600 H Granulocytes % Neutrophils % 86.1 H 84.8 H Lymphocytes % 7.0 L 7.8 L Monocytes % 5.5 6.4 Eosinophils % 0.1 0.1 Basophils % 0.4 0.3 Nucleated Red 0.0 0.0 Blood Cells % Immature 0.110 H 0.080 H Granulocytes # Neutrophils # 10.3 H 11.2 H Lymphocytes # 0.8 1.0 Monocytes # 0.7 0.8 Eosinophils # 0.0 0.0 Basophils # 0.1 0.0 Nucleated Red 0.0 0.0 Blood Cells # Sodium Level 134 L 135 Potassium Level 5.3 H 4.6 Chloride Level 90 L 92 L Carbon Dioxide 27 30 Level Anion Gap 17 H 13 Blood Urea 48 H 52 H Nitrogen Creatinine 2.03 H 1.83 H Est Glomerular 35 L 39 L Filtrat Rate mL/min Glucose Level 133 121 Calcium Level 9.6 9.5 Total Bilirubin 0.9 Direct 0.00 Bilirubin Indirect 0.9 Bilirubin Aspartate Amino 56 #H Transf (AST/SGO T) Alanine 31 Aminotransferas e (ALT/SGPT) Alkaline 165 H Phosphatase Total Protein 6.9 Albumin 3.3 Globulin 3.60 H Albumin/Globuli 0.91 n Ratio Bedside Glucose 128 Test 02/25/19 10:00 Blood Gas Blood arterial Specimen Source Arterial Blood 02/25/2019 10:45 Date Drawn :05 AM Arterial Blood 7.455 H pH (Temp corrected ) Arterial Blood 46.7 H pCO2 (Temp correct) Arterial Blood 122.9 H pO2 (Temp corrected ) Arterial Blood 32.1 H HCO3 Arterial Blood 7.1 H Base Excess Arterial Blood 98.5 H Oxygen Saturati on [place] Test ACCEPTAB Arterial Blood Left Radial Gas Puncture Site Arterial 1.0 Blood Carboxyhe moglobin Arterial Blood 0.4 Methemoglobin Blood Gas A-a 181.1 H O2 Differential Oxyhemoglobin 97.1 Percent Blood Gas 37.0 Temperature Blood Gas 18.0 Respiration Rate Blood Gas 20 Actual Respiration Rat e Blood Gas MASK - BIPAP Modality FiO2 50.0 Blood Gas 10 Pressure Support Blood Gas 15/5 IPAP/EPAP Ratio Blood Gas TM Notified Whom Blood Gas 02/25/2019 10:55 Notified Time :59 AM Medications Medications Current Medications Docusate Sodium (Colace) 100 mg BID PO Last administered on 02/24/19 08:32; A dmin Dose 100 MG; Start 02/23/19 at 09:00 Famotidine (Pepcid) 20 mg BID PO Last administered on 02/24/19 08:31; Admin Dose 20 MG; Start 02/23/19 at 09:00 Isosorbide Dinitrate (Isordil) 10 mg TID PO Last administered on 02/24/19 13:59; Admin Dose 10 MG; Start 02/23/19 at 09:00 Nicotine (Nicoderm 21 Mg/ 24hr) 1 patch DAILY TRANSDERM Last administered on 02/25/19 10:02; Admin Dose 1 PATCH; Start 02/23/19 at 09:00 IV Flush (NS 3 ml) 3 ml PER PROTOCOL IV ; Start 02/22/19 at 22:30 Ondansetron HCl (Zofran Inj) 4 mg Q6H PRN IV NAUSEA/VOMITING Last administered on 02/24/19 15:27; Admin Dose 4 MG; Start 02/22/19 at 22:30 Nitroglycerin (Nitroglycerin (Sl Tab) 0.4 Mg) 1 tab Q5M PRN SL .CHEST PAIN; S tart 02/22/19 at 22:30 Acetaminophen (Tylenol Tab) 650 mg Q6H PRN PO .PAIN 1-3 OR TEMP; Start 02/22/19 at 22:30 Acetaminophen/ Hydrocodone Bitart ([place] (5/325)) 1 tab Q6H PRN PO .PAIN 4-6 Last administered on 02/24/19 08:31; Admin Dose 1 TAB; Start 02/22/19 at 22:30 Docusate Sodium (Colace) 100 mg Q12H PRN PO .CONSTIPATION; Start 02/22/19 at 22:30 Bisacodyl (Dulcolax) 5 mg DAILY PRN PO .CONSTIPATION; Start 02/22/19 at 22:30 Enoxaparin Sodium (Lovenox) 90 mg DAILY SC Last administered on 02/25/19at 09:56; Admin Dose 90 MG; Start 02/25/19 at 09:00 Spironolactone (Aldactone) 12.5 mg DAILY PO ; Start 02/25/19 at 09:00 Hydralazine HCl (Apresoline) 10 mg Q8 PO ; Start 02/24/19 at 22:00 Carvedilol (Coreg) 6.25 mg BID PO ; Start 02/24/19 at 21:00 Ipratropium [place] (Atrovent 0.02% (Neb)) 0.5 mg Q4H RESP THERAPY PRN HHN sob; Start 02/24/19 at 16:30 Levalbuterol (Xopenex Neb) 0.63 mg Q4H RESP THERAPY PRN HHN sob Last administered on 02/24/19at 16:15; Admin Dose 0.63 MG; Start 02/24/19 at 16:00 Bumetanide (Bumex) 1 mg BID DIURETICS IV Last administered on 02/25/19at 05:06; Admin Dose 1 MG; Start 02/24/19 at 16:47 Haloperidol (Haldol) 5 mg Q6 PRN IM AGITATION/ANXIETY Last administered on at 04:35; Admin Dose 5 MG; Start 02/24/19 at 21:30 Miscellaneous Information Patients own medicat... BID@10,16 XX ; Start 02/25/19 at 10:00 JOSE AGGARWAL Feb 25, 2019 11:41
[2019-02-26] VITALS (27 sets, daily range): BP systolic 95–120; BP diastolic 66–92; PULSE 81–93; RESP 16–31
[2019-02-26] MEDS: BUMETANIDE 1 MG INJ IV SCH ×2 (05:08→18:49)
[2019-02-26] MEDS: LEVALBUTEROL (NEB) 0.63 MG/3 ML AMP HHN PRN ×4 (06:26→22:43)
[2019-02-26] MEDS: IPRATROPIUM (NEB) 0.5 MG/2.5 ML AMP HHN PRN ×3 (06:26→17:45)
[2019-02-26] MEDS: NICOTINE (21 MG/24 HR) PATCH TRANSDERM SCH (08:53)
[2019-02-26] MEDS: FAMOTIDINE 20 MG TAB PO SCH ×2 (08:53→21:09)
[2019-02-26] MEDS: DOCUSATE SODIUM 100 MG CAP PO SCH ×2 (08:53→21:00)
[2019-02-26] MEDS: BALSAM PERU/CASTOR OIL 60 GM TUBE TOP SCH (09:00)
--- NOTE | 2019-02-26 09:07 | PN ---
Date/Time of Note Date/Time of Note DATE: 02/26/19 TIME: 09:03 Assessment/Plan VTE Prophylaxis Risk score (from Nsg)>0 risk: 7 SCD applied (from Nsg): Yes Pharmacological prophylaxis: LMWH Lines/Catheters IV Catheter Type (from Nrsg): Peripheral IV Urinary Cath still in place: Yes Reason Cath still needed: other (indicate) (not needed) Assessment/Plan Assessment/Plan 48 yo man history of hep C cirrhosis, CHF, PE and DVT presents in CHF exacerbation. #Acute encephalopathy #Acute hypoxia - Both occurred the evening of 02/24. - Patient transferred to ICU, protecting airway, but very lethargic. - Had recent illicit drug use, uTox positive for meth, cannabis, and opiates. And last night got haloperidol. - Now symptoms have resolved. Plan to transfer to med/surg. # Acute on chronic Systolic heart failure exacerbation: - Previous echocardiogram showed an ejection fraction of approximately 10 to 15%. - Bumex 1mg IV BID - Appears to be reaching euvolemia - Dr. Vazquez following. - Cont coreg, isordil. # History of pulmonary embolism / Left subclavian thrombus / Popiteal DVT: - Diagnosed on 12/01/2018. - Currently on subQ lovenox for poor renal function and inability to tolerate PO - Resume eliquis or xarelto on discharge. # Abdominal ascites: - Got therapeutic paracentesis earlier this admission. Studies not sent. # Liver cirrhosis: History of hepatitis C. We will check liver function test. Patient does have what appears to be abdominal ascites. We will continue diuresis. Will obtain abdominal ultrasound to assess degree of ascites for possible paracentesis. Undetectable viral load in 2018. Follow-up as an outpatient. Check ammonia level. # Chronic kidney disease: - Worsened after admission, now slightly improving. # COPD: PRN breathing treatments as indicated, DVT: lovenox GI: None 45 minutes critical care time spent on this patient. Result Diagram: 02/26/1942002/26/19420 Subjective 24 Hr Interval Summary Free Text/Dictation Yesterday evening patient woke up, tolerating diet, more alert. This morning patient appears back to baseline. Sitting up in bed, conversing normally. He does not remember what happened prior to his decompensation. He thinks it was too many medications given upstairs. He denies taking any illicit drugs in the hospital. Exam/Review of Systems Exam Vitals Vital Signs Date Temp Pulse Resp B/P (MAP) Pulse Ox O2 O2 Flow FiO2 Time Delivery Rate 02/26/19 88 20 103/74 100 Nasal 2.0 09:00 (84) Cannula 02/26/19 97.7 08:34 02/26/19 31 06:36 Intake and Output 02/25/19 02/25/19 02/26/19 1515:00 23:00 07:00 IntakeIntake Total 300 ml 300 ml OutputOutput Total 1000 ml 1170 ml 720 ml BalanceBalance -1000 ml -870 ml -420 ml Exam General: Well developed man sitting up in bed, awake and alert. HEENT: Atraumatic, normocephalic. Neck: Supple with full range of motion. No rigidity or meningismus Chest: Nontender Lungs: Clear to auscultation bilaterally. Heart: Normal S1-S2, Regular rhythm and rate. No murmur, S3, or S4 Abdomen: Soft , nondistended, nontender throughout. Extremities: Trace LE edema. Results Results 24hrs Laboratory Tests Test 02/25/19 10:00 02/25/19 10:43 02/26/19 04:21 Blood Gas Specimen Source Blood arterial Arterial Blood Date Drawn 02/25/2019 10:45:05 AM Arterial Blood pH 7.455 H (Temp corrected) Arterial Blood pCO2 46.7 H (Temp correct) Arterial Blood pO2 122.9 H (Temp corrected) Arterial Blood HCO3 32.1 H Arterial Blood Base Excess 7.1 H Arterial Blood 98.5 H Oxygen Saturation [place] Test ACCEPTAB Arterial Blood Gas Left Radial Puncture Site Arterial 1.0 Blood Carboxyhemoglobin Arterial Blood 0.4 Methemoglobin Blood Gas A-a O2 181.1 H Differential Oxyhemoglobin Percent 97.1 Blood Gas Temperature 37.0 Blood Gas Respiration Rate 18.0 Blood Gas Actual 20 Respiration Rate Blood Gas Modality MASK - BIPAP FiO2 50.0 Blood Gas Pressure Support 10 Blood Gas IPAP/EPAP Ratio 15/5 Blood Gas Notified Whom TM Blood Gas Notified Time 02/25/2019 10:55:59 AM Lactic Acid Level 2.2 *H Magnesium Level 1.8 White Blood Count 9.2 # Red Blood Count 5.00 Hemoglobin 12.2 L Hematocrit 41.1 L Mean Corpuscular Volume 82.2 Mean Corpuscular Hemoglobin 24.4 L Mean Corpuscular 29.7 L Hemoglobin Concent Red Cell Distribution Width 20.2 H Platelet Count 332 Mean Platelet Volume 9.5 Immature Granulocytes % 0.800 H Neutrophils % 81.0 H Lymphocytes % 7.8 L Monocytes % 9.5 Eosinophils % 0.7 Basophils % 0.2 Nucleated Red Blood Cells % 0.0 Immature Granulocytes # 0.070 H Neutrophils # 7.4 Lymphocytes # 0.7 L Monocytes # 0.9 Eosinophils # 0.1 Basophils # 0.0 Nucleated Red Blood Cells # 0.0 Sodium Level 136 Potassium Level 3.8 Chloride Level 94 L Carbon Dioxide Level 36 H Anion Gap 6 Blood Urea Nitrogen 43 H Creatinine 1.11 Est Glomerular Filtrat > 60 Rate mL/min Glucose Level 129 Calcium Level 9.3 Total Bilirubin 0.6 Direct Bilirubin 0.00 Indirect Bilirubin 0.6 Aspartate Amino 44 Transf (AST/SGOT) Alanine 30 Aminotransferase (ALT/SGPT) Alkaline Phosphatase 165 H Total Protein 6.7 Albumin 3.1 L Globulin 3.60 H Albumin/Globulin Ratio 0.86 Medications Medication Current Medications Docusate Sodium (Colace) 100 mg BID PO Last administered on 02/26/19at 08:53; Admin Dose 100 MG; Start 02/23/19 at 09:00 Famotidine (Pepcid) 20 mg BID PO Last administered on 02/26/19 08:53; Admin Dose 20 MG; Start 02/23/19 at 09:00 Isosorbide Dinitrate (Isordil) 10 mg TID PO Last administered on 02/25/19at 21:10; Admin Dose 10 MG; Start 02/23/19 at 09:00 Nicotine (Nicoderm 21 Mg/ 24hr) 1 patch DAILY TRANSDERM Last administered on 02/26/19 08:53; Admin Dose 1 PATCH; Start 02/23/19 at 09:00 IV Flush (NS 3 ml) 3 ml PER PROTOCOL IV ; Start 02/22/19 at 22:30 Ondansetron HCl (Zofran Inj) 4 mg Q6H PRN IV NAUSEA/VOMITING Last administered on 02/24/19at 15:27; Admin Dose 4 MG; Start 02/22/19 at 22:30 Nitroglycerin (Nitroglycerin (Sl Tab) 0.4 Mg) 1 tab Q5M PRN SL .CHEST PAIN; Start 02/22/19 at 22:30 Acetaminophen (Tylenol Tab) 650 mg Q6H PRN PO .PAIN 1-3 OR TEMP; Start 02/22/19 at 22:30 Acetaminophen/ Hydrocodone Bitart ([place] (5/325)) 1 tab Q6H PRN PO .PAIN 4-6 Last administered on 02/24/19 08:31; Admin Dose 1 TAB; Start 02/22/19 at 22:30 Docusate Sodium (Colace) 100 mg Q12H PRN PO .CONSTIPATION; Start 02/22/19 at 22:30 Bisacodyl (Dulcolax) 5 mg DAILY PRN PO .CONSTIPATION; Start 02/22/19 at 22:30 Enoxaparin Sodium (Lovenox) 90 mg DAILY SC Last administered on 02/25/19at 09:56; Admin Dose 90 MG; Start 02/25/19 at 09:00 Spironolactone (Aldactone) 12.5 mg DAILY PO ; Start 02/25/19 at 09:00 Hydralazine HCl (Apresoline) 10 mg Q8 PO Last administered on 02/26/19 05:08; Admin Dose 10 MG; Start 02/24/19 at 22:00 Carvedilol (Coreg) 6.25 mg BID PO Last administered on 02/26/19 08:57; Admin Dose 6.25 MG; Start 02/24/19 at 21:00 Ipratropium [place] (Atrovent 0.02% (Neb)) 0.5 mg Q4H RESP THERAPY PRN HHN sob Last administered on 02/26/19 06:26; Admin Dose 0.5 MG; Start 02/24/19 at 16:30 Levalbuterol (Xopenex Neb) 0.63 mg Q4H RESP THERAPY PRN HHN sob Last administered on 02/26/19 06:26; Admin Dose 0.63 MG; Start 02/24/19 at 16:00 Bumetanide (Bumex) 1 mg BID DIURETICS IV Last administered on 02/26/19 05:08; Admin Dose 1 MG; Start 02/24/19 at 16:47 Haloperidol (Haldol) 5 mg Q6 PRN IM AGITATION/ANXIETY Last administered on 7/11/19at 04:35; Admin Dose 5 MG; Start 02/24/19 at 21:30 Miscellaneous Information Patients own medicat... BID@ XX ; Start 02/25/19 at 10:00 JOSE BRADY MD Feb 26, 2019 09:07
--- NOTE | 2019-02-26 10:03 | CONS ---
Assessment/Plan Assessment/Plan Assessment/Plan (Daily) Chest x-ray from today showing significant improvement in CHF. Assessment recommendations; 1. Patient admitted with CHF exacerbation with history of cardiomyopathy. 2. Possible underlying COPD. 3. History of hepatitis C. 4. Likely underlying sleep apnea as well. Continue current supportive care. Patient responding well to current treatment regimen. Consultation Date/Type/Reason Admit Date/Time Feb 22, 2019 at 20:25 Initial Consult Date 02/25/19 Type of Consult Pulmonary/critical care Patient is a 48-year-old male who was admitted to the hospital with shortness of breath. Patient has a history of severe cardiomyopathy and CHF. Patient was transferred to ICU from medical floor because of decompensation. Patient has been on BiPAP. Patient also was recently discharged from [facility] for similar symptoms and diagnosis. Past medical history; next 1. History of severe cardiomyopathy with multiple admissions at various hospitals. 2. Likely underlying sleep apnea. 3. Chronic renal insufficiency. 4. Hypertension. 5. Liver cirrhosis due to hep C. 6. COPD. 7. History of pulmonary embolism. Medications; reviewed. Allergies; none. Socially; patient has a history of smoking. Family history; noncontributory. Occupational history; patient is on disability. Review of system; unable to be obtained. General exam; middle-aged male, obese, on BiPAP. Currently noncommunicative. Requesting Provider: JUSTIN PAREKH MD Date/Time of Note DATE: 02/26/19 TIME: 10:01 24 HR Interval Summary Free Text/Dictation Patient's condition is markedly improved. Remains completely awake and alert. Denies any shortness of breath. General exam; young male, awake alert, currently in no distress. Exam/Review of Systems Exam Vitals Vital Signs Date Temp Pulse Resp B/P (MAP) Pulse Ox O2 O2 Flow FiO2 Time Delivery Rate 02/26/19 85 17 111/84 09:30 (93) 02/26/19 97 09:00 02/26/19 Nasal 2.0 09:00 Cannula 02/26/19 97.7 08:34 02/26/19 31 06:36 Intake and Output 02/25/19 02/25/19 02/26/19 1515:00 23:00 07:00 IntakeIntake Total 300 ml 300 ml OutputOutput Total 1000 ml 1170 ml 720 ml BalanceBalance -1000 ml -870 ml -420 ml Exam H EENT exam; supple neck, positive JVD. No lymphadenopathy. Midline trachea. No thyromegaly. Patient has carious teeth. Pupils are small bilaterally. No neck masses. Chest exam; diminished but clear breath sounds. S1-S2 audible, no murmurs. Regular rhythm. There is a small lipoma in the lower sternum. Abdomen exam; soft, protuberant. Nontender. Bowel sounds audible. Organomegaly difficult to assess. Extremity exam; trace edema. SERVER exam; no focal deficit. Results Result Diagram: 02/26/19 04202/26/19 042 Results 24hrs Laboratory Tests Test 02/25/19 10:43 02/26/19 04:21 Lactic Acid Level 2.2 *H Magnesium Level 1.8 White Blood Count 9.2 # Red Blood Count 5.00 Hemoglobin 12.2 L Hematocrit 41.1 L Mean Corpuscular Volume 82.2 Mean Corpuscular Hemoglobin 24.4 L Mean Corpuscular Hemoglobin Concent 29.7 L Red Cell Distribution Width 20.2 H Platelet Count 332 Mean Platelet Volume 9.5 Immature Granulocytes % 0.800 H Neutrophils % 81.0 H Lymphocytes % 7.8 L Monocytes % 9.5 Eosinophils % 0.7 Basophils % 0.2 Nucleated Red Blood Cells % 0.0 Immature Granulocytes # 0.070 H Neutrophils # 7.4 Lymphocytes # 0.7 L Monocytes # 0.9 Eosinophils # 0.1 Basophils # 0.0 Nucleated Red Blood Cells # 0.0 Sodium Level 136 Potassium Level 3.8 Chloride Level 94 L Carbon Dioxide Level 36 H Anion Gap 6 Blood Urea Nitrogen 43 H Creatinine 1.11 Est Glomerular Filtrat Rate mL/min > 60 Glucose Level 129 Calcium Level 9.3 Total Bilirubin 0.6 Direct Bilirubin 0.00 Indirect Bilirubin 0.6 Aspartate Amino Transf (AST/SGOT) 44 Alanine Aminotransferase (ALT/SGPT) 30 Alkaline Phosphatase 165 H Total Protein 6.7 Albumin 3.1 L Globulin 3.60 H Albumin/Globulin Ratio 0.86 Medications Medication Current Medications Docusate Sodium (Colace) 100 mg BID PO Last administered on 02/26/19at 08:53; Admin Dose 100 MG; Start 02/23/19 at 09:00 Famotidine (Pepcid) 20 mg BID PO Last administered on 02/26/19 08:53; Admin Dose 20 MG; Start 02/23/19 at 09:00 Isosorbide Dinitrate (Isordil) 10 mg TID PO Last administered on 02/25/19 21:10; Admin Dose 10 MG; Start 02/23/19 at 09:00 Nicotine (Nicoderm 21 Mg/ 24hr) 1 patch DAILY TRANSDERM Last administered on 02/26/19 08:53; Admin Dose 1 PATCH; Start 02/23/19 at 09:00 IV Flush (NS 3 ml) 3 ml PER PROTOCOL IV ; Start 02/22/19 at 22:30 Ondansetron HCl (Zofran Inj) 4 mg Q6H PRN IV NAUSEA/VOMITING Last administered on 02/24/19 15:27; Admin Dose 4 MG; Start 02/22/19 at 22:30 Nitroglycerin (Nitroglycerin (Sl Tab) 0.4 Mg) 1 tab Q5M PRN SL .CHEST PAIN; Start 02/22/19 at 22:30 Acetaminophen (Tylenol Tab) 650 mg Q6H PRN PO .PAIN 1-3 OR TEMP; Start 02/22/19 at 22:30 Acetaminophen/ Hydrocodone Bitart ([place] (5/325)) 1 tab Q6H PRN PO .PAIN 4-6 Last administered on 02/24/19 08:31; Admin Dose 1 TAB; Start 02/22/19 at 22:30 Docusate Sodium (Colace) 100 mg Q12H PRN PO .CONSTIPATION; Start 02/22/19 at 22:30 Bisacodyl (Dulcolax) 5 mg DAILY PRN PO .CONSTIPATION; Start 02/22/19 at 22:30 Enoxaparin Sodium (Lovenox) 90 mg DAILY SC Last administered on 02/25/19 09:56; Admin Dose 90 MG; Start 02/25/19 at 09:00 Spironolactone (Aldactone) 12.5 mg DAILY PO ; Start 02/25/19 at 09:00 Hydralazine HCl (Apresoline) 10 mg Q8 PO Last administered on 02/26/19 05:08; Admin Dose 10 MG; Start 02/24/19 at 22:00 Carvedilol (Coreg) 6.25 mg BID PO Last administered on 7/12/19at 08:57; Admin Dose 6.25 MG; Start 02/24/19 at 21:00 Ipratropium [place] (Atrovent 0.02% (Neb)) 0.5 mg Q4H RESP THERAPY PRN HHN sob Last administered on 02/26/19at 06:26; Admin Dose 0.5 MG; Start 02/24/19 at 16:30 Levalbuterol (Xopenex Neb) 0.63 mg Q4H RESP THERAPY PRN HHN sob Last administered on 02/26/19at 06:26; Admin Dose 0.63 MG; Start 02/24/19 at 16:00 Bumetanide (Bumex) 1 mg BID DIURETICS IV Last administered on 02/26/19at 05:08; Admin Dose 1 MG; Start 02/24/19 at 16:47 Haloperidol (Haldol) 5 mg Q6 PRN IM AGITATION/ANXIETY Last administered on 02/25/19at 04:35; Admin Dose 5 MG; Start 02/24/19 at 21:30 Miscellaneous Information Patients own medicat... BID@ XX ; Start 02/25/19 at 10:00 SHABNAM CHINO Feb 26, 2019 10:03
--- NOTE | 2019-02-26 10:28 | CONS ---
Assessment/Plan Assessment/Plan Hospital Course (Demo Recall) IMP: 1.CHF-systolic acute on chronic 2.Cardiomyopathy-EF 15-20% 3.orthopnea/CURRY 4.NSVT 5.ARF-significantly improved 6.H/O substance abuse 7.Cirrhosis/ascites Recc: -Ok to tele as long as saturation stable -Continue bumex diuresis but slowed down yesterday given onset of renal failure -Continue aldactone and follow K closely -Continue coreg and hydralazine afterload reduction in lieu of ACEI given renal failure but if creatnine remains improved will change to ACEI -Continue isordil for now -Continue lovenox SQ with probable ability to change back to sq bid given improvement in renal function -Keep K>4 and Mg>2 as possible Consultation Date/Type/Reason Admit Date/Time Feb 22, 2019 at 20:25 Initial Consult Date 02/23/19 Type of Consult Cardiology Reason for Consultation CHF Requesting Provider: JUSTIN PAREKH MD Date/Time of Note DATE: 02/26/19 TIME: 10:25 Exam/Review of Systems Vital Signs Vitals Vital Signs Date Temp Pulse Resp B/P (MAP) Pulse Ox O2 O2 Flow FiO2 Time Delivery Rate 02/26/19 85 17 111/84 09:30 (93) 02/26/19 97 09:00 02/26/19 Nasal 2.0 09:00 Cannula 02/26/19 97.7 08:34 02/26/19 31 06:36 Intake and Output 02/25/19 02/25/19 02/26/19 1515:00 23:00 07:00 IntakeIntake Total 300 ml 300 ml OutputOutput Total 1000 ml 1170 ml 720 ml BalanceBalance -1000 ml -870 ml -420 ml Exam Exam Review of Systems: CONSTITUTIONAL: No fevers, chills. PULMONARY: mild sob CARDIOVASCULAR: No chest pain/palpitations GASTROINTESTINAL: No nausea/vomiting. GENITOURINARY: No hematuria/dysuria. MUSCULOSKELETAL: No myagias/arthalgias. PSYCHIATRIC: The patient denies depression. NEUROLOGIC: lethargic Constitutional: alert Psych: no complaints Head: normocephalic ENMT: mucosa pink and moist Neck: supple, jvd (9 cm water) Respiratory: diminished breath sounds (at bases/B) Cardiovascular: regular rate and rhythm Gastrointestinal: soft, non-tender Musculoskeletal: muscle tone (normal) Extremities: edema (none) Neurological: other (No focal deficits) Labs Result Diagram: 02/26/1942002/26/191 Results 24hrs Laboratory Tests Test 02/25/19 10:43 02/26/19 04:21 Lactic Acid Level 2.2 *H Magnesium Level 1.8 White Blood Count 9.2 # Red Blood Count 5.00 Hemoglobin 12.2 L Hematocrit 41.1 L Mean Corpuscular Volume 82.2 Mean Corpuscular Hemoglobin 24.4 L Mean Corpuscular Hemoglobin Concent 29.7 L Red Cell Distribution Width 20.2 H Platelet Count 332 Mean Platelet Volume 9.5 Immature Granulocytes % 0.800 H Neutrophils % 81.0 H Lymphocytes % 7.8 L Monocytes % 9.5 Eosinophils % 0.7 Basophils % 0.2 Nucleated Red Blood Cells % 0.0 Immature Granulocytes # 0.070 H Neutrophils # 7.4 Lymphocytes # 0.7 L Monocytes # 0.9 Eosinophils # 0.1 Basophils # 0.0 Nucleated Red Blood Cells # 0.0 Sodium Level 136 Potassium Level 3.8 Chloride Level 94 L Carbon Dioxide Level 36 H Anion Gap 6 Blood Urea Nitrogen 43 H Creatinine 1.11 Est Glomerular Filtrat Rate mL/min > 60 Glucose Level 129 Calcium Level 9.3 Total Bilirubin 0.6 Direct Bilirubin 0.00 Indirect Bilirubin 0.6 Aspartate Amino Transf (AST/SGOT) 44 Alanine Aminotransferase (ALT/SGPT) 30 Alkaline Phosphatase 165 H Total Protein 6.7 Albumin 3.1 L Globulin 3.60 H Albumin/Globulin Ratio 0.86 Medications Medications Current Medications Docusate Sodium (Colace) 100 mg BID PO Last administered on 02/26/19 08:53; Admin Dose 100 MG; Start 02/23/19 at 09:00 Famotidine (Pepcid) 20 mg BID PO Last administered on 02/26/19 08:53; Admin Dose 20 MG; Start 02/23/19 at 09:00 Isosorbide Dinitrate (Isordil) 10 mg TID PO Last administered on 02/25/19 21:10; Admin Dose 10 MG; Start 02/23/19 at 09:00 Nicotine (Nicoderm 21 Mg/ 24hr) 1 patch DAILY TRANSDERM Last administered on 02/26/19 08:53; Admin Dose 1 PATCH; Start 02/23/19 at 09:00 IV Flush (NS 3 ml) 3 ml PER PROTOCOL IV ; Start 02/22/19 at 22:30 Ondansetron HCl (Zofran Inj) 4 mg Q6H PRN IV NAUSEA/VOMITING Last administered on 02/24/19at 15:27; Admin Dose 4 MG; Start 02/22/19 at 22:30 Nitroglycerin (Nitroglycerin (Sl Tab) 0.4 Mg) 1 tab Q5M PRN SL .CHEST PAIN; Start 02/22/19 at 22:30 Acetaminophen (Tylenol Tab) 650 mg Q6H PRN PO .PAIN 1-3 OR TEMP; Start 02/22/19 at 22:30 Acetaminophen/ Hydrocodone Bitart ([place] (5/325)) 1 tab Q6H PRN PO .PAIN 4-6 Last administered on 02/24/19at 08:31; Admin Dose 1 TAB; Start 02/22/19 at 22:30 Docusate Sodium (Colace) 100 mg Q12H PRN PO .CONSTIPATION; Start 02/22/19 at 22:30 Bisacodyl (Dulcolax) 5 mg DAILY PRN PO .CONSTIPATION; Start 02/22/19 at 22:30 Enoxaparin Sodium (Lovenox) 90 mg DAILY SC Last administered on 02/25/19at 09:56; Admin Dose 90 MG; Start 02/25/19 at 09:00 Spironolactone (Aldactone) 12.5 mg DAILY PO ; Start 02/25/19 at 09:00 Hydralazine HCl (Apresoline) 10 mg Q8 PO Last administered on 02/26/19at 05:08; Admin Dose 10 MG; Start 02/24/19 at 22:00 Carvedilol (Coreg) 6.25 mg BID PO Last administered on 02/26/19 08:57; Admin Dose 6.25 MG; Start 02/24/19 at 21:00 Ipratropium [place] (Atrovent 0.02% (Neb)) 0.5 mg Q4H RESP THERAPY PRN HHN sob Last administered on 02/26/19at 06:26; Admin Dose 0.5 MG; Start 02/24/19 at 16:30 Levalbuterol (Xopenex Neb) 0.63 mg Q4H RESP THERAPY PRN HHN sob Last administered on 02/26/19at 06:26; Admin Dose 0.63 MG; Start 02/24/19 at 16:00 Bumetanide (Bumex) 1 mg BID DIURETICS IV Last administered on 02/26/19at 05:08; Admin Dose 1 MG; Start 02/24/19 at 16:47 Haloperidol (Haldol) 5 mg Q6 PRN IM AGITATION/ANXIETY Last administered on 02/25/19at 04:35; Admin Dose 5 MG; Start 02/24/19 at 21:30 Miscellaneous Information Patients own medicat... BID@10,16 XX ; Start 02/25/19 at 10:00 JOSE AGGARWAL Feb 26, 2019 10:28
[2019-02-26] MEDS: ISOSORBIDE DINITRATE 10 MG TAB PO SCH ×3 (10:45→21:11)
[2019-02-26] MEDS: SPIRONOLACTONE 25 MG TAB PO SCH (10:45)
[2019-02-26] MEDS: ENOXAPARIN 100 MG/ML SYG SC SCH (10:47)
[2019-02-26] MEDS ORDERED: MAGNESIUM SULFATE 2 GM/50 ML 50 ML IVPB ONE (11:00)
[2019-02-26] MEDS ORDERED: POTASSIUM CHLORIDE 100 ML IVPB ONE (11:30)
[2019-02-26] MEDS: HYDROCODONE/APAP (5/325) TAB PO PRN (23:49)
[2019-02-27] VITALS (9 sets, daily range): BP systolic 99–125; BP diastolic 61–89; PULSE 60–98; RESP 18–20
[2019-02-27] MEDS ORDERED: MAGNESIUM SULFATE 2 GM/50 ML 50 ML IVPB ONE (02:00)
[2019-02-27] MEDS ORDERED: LORAZEPAM 2 MG INJ IV ONE (04:00)
[2019-02-27] MEDS: BUMETANIDE 1 MG INJ IV SCH ×2 (05:25→17:02)
[2019-02-27] MEDS: LEVALBUTEROL (NEB) 0.63 MG/3 ML AMP HHN PRN ×3 (08:24→19:38)
[2019-02-27] MEDS: IPRATROPIUM (NEB) 0.5 MG/2.5 ML AMP HHN PRN ×2 (08:24→12:48)
[2019-02-27] MEDS: DOCUSATE SODIUM 100 MG CAP PO SCH ×2 (08:37→20:30)
[2019-02-27] MEDS: ISOSORBIDE DINITRATE 10 MG TAB PO SCH ×3 (08:38→20:32)
[2019-02-27] MEDS: FAMOTIDINE 20 MG TAB PO SCH ×2 (08:38→20:30)
[2019-02-27] MEDS: NICOTINE (21 MG/24 HR) PATCH TRANSDERM SCH (08:39)
[2019-02-27] MEDS: SPIRONOLACTONE 25 MG TAB PO SCH (08:39)
[2019-02-27] MEDS: BALSAM PERU/CASTOR OIL 60 GM TUBE TOP SCH (08:40)
[2019-02-27] MEDS: ENOXAPARIN 100 MG/ML SYG SC SCH ×2 (08:47→20:45)
--- NOTE | 2019-02-27 10:39 | PN ---
Date/Time of Note Date/Time of Note DATE: 02/27/19 TIME: 10:36 Assessment/Plan VTE Prophylaxis Risk score (from Ns)>0 risk: 6 SCD applied (from Nsg): Yes Pharmacological prophylaxis: LMWH Lines/Catheters IV C[facility]ter Type (from [facility]): Peripheral IV Urinary Cath still in place: No (Removed on 02/26/19 in ICU ) Assessment/Plan Assessment/Plan 48 yo man history of hep C cirrhosis, CHF, PE and DVT presents in CHF exacerbation. #Acute encephalopathy #Acute hypoxia - Both occurred the evening of 02/24. - Patient transferred to ICU, protecting airway, but very lethargic. - Had recent illicit drug use, uTox positive for meth, cannabis, and opiates. And last night got haloperidol. - Now symptoms have resolved. # Acute on chronic Systolic heart failure exacerbation: - Previous echocardiogram showed an ejection fraction of approximately 10 to 15%. - Bumex 1mg IV BID - Appears to be reaching euvolemia - Dr. Vazquez following. - Cont coreg, isordil. # History of pulmonary embolism / Left subclavian thrombus / Popiteal DVT: - Diagnosed on 12/01/2018. - Currently on subQ lovenox for poor renal function and inability to tolerate PO - Resume eliquis or xarelto on discharge. # Abdominal ascites: - Got therapeutic paracentesis earlier this admission. Studies not sent. # Liver cirrhosis: History of hepatitis C. We will check liver function test. Patient does have what appears to be abdominal ascites. We will continue diuresis. Will obtain abdominal ultrasound to assess degree of ascites for possible paracentesis. Undetectable viral load in 2018. Follow-up as an outpatient. Check ammonia level. # Chronic kidney disease: - Worsened after admission, now slightly improving. # COPD: PRN breathing treatments as indicated, DVT: lovenox GI: None Result Diagram: 02/26/19 0421 02/27/19 0006 Subjective 24 Hr Interval Summary Free Text/Dictation No acute overnight events. Patient to tele last night. This morning sleeping, minimally responsive in bed. Exam/Review of Systems Exam Vitals Vital Signs Date Temp Pulse Resp B/P (MAP) Pulse Ox O2 O2 Flow FiO2 Time Delivery Rate 02/27/19 88 22 98 Nasal 5.0 40 08:24 Cannula 02/27/19 97.3 122/81 07:43 (95) Intake and Output 02/26/19 02/26/19 02/27/19 1515:00 23:00 07:00 IntakeIntake Total 1440 ml 300 ml 400 ml OutputOutput Total 760 ml 765 ml 350 ml BalanceBalance 680 ml -465 ml 50 ml Exam General: Well developed man sprawled across bed. HEENT: Atraumatic, normocephalic. Neck: Supple with full range of motion. No rigidity or meningismus Chest: Nontender Lungs: Clear to auscultation bilaterally. Heart: Normal S1-S2, Regular rhythm and rate. No murmur, S3, or S4 Abdomen: Soft , nondistended, nontender throughout. Extremities: Trace LE edema. Results Results 24hrs Laboratory Tests Test 02/27/19 00:06 Sodium Level 135 Potassium Level 4.0 Chloride Level 92 L Carbon Dioxide Level 34 H Anion Gap 9 Blood Urea Nitrogen 34 H Creatinine 0.93 Est Glomerular Filtrat Rate mL/min > 60 Glucose Level 144 Calcium Level 8.5 Magnesium Level 1.8 Medications Medication Current Medications Docusate Sodium (Colace) 100 mg BID PO Last administered on 02/27/19at 08:37; Admin Dose 100 MG; Start 02/23/19 at 09:00 Famotidine (Pepcid) 20 mg BID PO Last administered on 02/27/19 08:38; Admin Dose 20 MG; Start 02/23/19 at 09:00 Isosorbide Dinitrate (Isordil) 10 mg TID PO Last administered on 02/27/19at 08:38; Admin Dose 10 MG; Start 02/23/19 at 09:00 Nicotine (Nicoderm 21 Mg/ 24hr) 1 patch DAILY TRANSDERM Last administered on 02/27/19at 08:39; Admin Dose 1 PATCH; Start 02/23/19 at 09:00 IV Flush (NS 3 ml) 3 ml PER PROTOCOL IV ; Start 02/22/19 at 22:30 Ondansetron HCl (Zofran Inj) 4 mg Q6H PRN IV NAUSEA/VOMITING Last administered on 02/24/19at 15:27; Admin Dose 4 MG; Start 02/22/19 at 22:30 Nitroglycerin (Nitroglycerin (Sl Tab) 0.4 Mg) 1 tab Q5M PRN SL .CHEST PAIN; Start 02/22/19 at 22:30 Acetaminophen (Tylenol Tab) 650 mg Q6H PRN PO .PAIN 1-3 OR TEMP; Start 02/22/19 at 22:30 Acetaminophen/ Hydrocodone Bitart ([place] (5/325)) 1 tab Q6H PRN PO .PAIN 4-6 Last administered on 02/26/19 23:49; Admin Dose 1 TAB; Start 02/22/19 at 22:30 Docusate Sodium (Colace) 100 mg Q12H PRN PO .CONSTIPATION; Start 02/22/19 at 22:30 Bisacodyl (Dulcolax) 5 mg DAILY PRN PO .CONSTIPATION; Start 02/22/19 at 22:30 Enoxaparin Sodium (Lovenox) 90 mg DAILY SC Last administered on 02/27/19 08:47; Admin Dose 90 MG; Start 02/25/19 at 09:00 Spironolactone (Aldactone) 12.5 mg DAILY PO Last administered on 02/27/19 08:39; Admin Dose 12.5 MG; Start 02/25/19 at 09:00 Hydralazine HCl (Apresoline) 10 mg Q8 PO Last administered on 02/27/19 05:26; Admin Dose 10 MG; Start 02/24/19 at 22:00 Carvedilol (Coreg) 6.25 mg BID PO Last administered on 02/27/19 08:41; Admin Dose 6.25 MG; Start 02/24/19 at 21:00 Ipratropium [place] (Atrovent 0.02% (Neb)) 0.5 mg Q4H RESP THERAPY PRN HHN sob Last administered on 02/27/19 08:24; Admin Dose 0.5 MG; Start 02/24/19 at 16:30 Levalbuterol (Xopenex Neb) 0.63 mg Q4H RESP THERAPY PRN HHN sob Last administered on 02/27/19 08:24; Admin Dose 0.63 MG; Start 02/24/19 at 16:00 Bumetanide (Bumex) 1 mg BID DIURETICS IV Last administered on 02/27/19 05:25; Admin Dose 1 MG; Start 02/24/19 at 16:47 Haloperidol (Haldol) 5 mg Q6 PRN IM AGITATION/ANXIETY Last administered on 02/25/19at 04:35; Admin Dose 5 MG; Start 02/24/19 at 21:30 Miscellaneous Information Patients own medicat... BID@ XX ; Start 02/25/19 at 10:00 JOSE BRADY MD Feb 27, 2019 10:39
--- NOTE | 2019-02-27 14:52 | CONS ---
Assessment/Plan Assessment/Plan Hospital Course (Demo Recall) IMP: 1.CHF-systolic acute on chronic 2.Cardiomyopathy-EF 15-20% 3.orthopnea/CURRY 4.NSVT 5.ARF-significantly improved 6.H/O substance abuse 7.Cirrhosis/ascites 8. anxiety-per patient having now Recc: -Now back on tele -Continue bumex diuresis and follow renal function and volume status clsoely -Continue aldactone and follow K closely -Continue coreg and will change hydralazine to ACEI given improvement in renal function -Continue isordil for now -Continue lovenox SQ with probable ability to change back to sq bid given improvement in renal function -Keep K>4 and Mg>2 as possible Consultation Date/Type/Reason Admit Date/Time Feb 22, 2019 at 20:25 Initial Consult Date 02/23/19 Type of Consult Cardiology Reason for Consultation CHF Requesting Provider: JUSTIN PAREKH MD Date/Time of Note DATE: 02/27/19 TIME: 14:48 Exam/Review of Systems Vital Signs Vitals Vital Signs Date Temp Pulse Resp B/P (MAP) Pulse Ox O2 O2 Flow FiO2 Time Delivery Rate 02/27/19 89 125/72 13:28 (89) 02/27/19 86 2.0 28 12:52 02/27/19 28 Nasal 12:48 Cannula 02/27/19 97.5 11:23 Intake and Output 02/26/19 02/26/19 02/27/19 1515:00 23:00 07:00 IntakeIntake Total 1440 ml 300 ml 400 ml OutputOutput Total 760 ml 765 ml 350 ml BalanceBalance 680 ml -465 ml 50 ml Exam Exam Review of Systems: CONSTITUTIONAL: No fevers, chills. PULMONARY: No sob CARDIOVASCULAR: No chest pain/palpitations GASTROINTESTINAL: No nausea/vomiting. GENITOURINARY: No hematuria/dysuria. MUSCULOSKELETAL: No myagias/arthalgias. PSYCHIATRIC: anxiety NEUROLOGIC: No weakness Constitutional: alert Psych: no complaints Head: normocephalic ENMT: mucosa pink and moist Neck: supple, jvd (9 cm water) Respiratory: diminished breath sounds (at bases/B) Cardiovascular: regular rate and rhythm Gastrointestinal: soft, non-tender Musculoskeletal: muscle tone (normal) Extremities: edema (trace/B) Neurological: other (No focal deficits) Labs Result Diagram: 02/26/19 0421 02/27/19 0006 Results 24hrs Laboratory Tests Test 02/27/19 00:06 Sodium Level 135 Potassium Level 4.0 Chloride Level 92 L Carbon Dioxide Level 34 H Anion Gap 9 Blood Urea Nitrogen 34 H Creatinine 0.93 Est Glomerular Filtrat Rate mL/min > 60 Glucose Level 144 Calcium Level 8.5 Magnesium Level 1.8 Medications Medications Current Medications Docusate Sodium (Colace) 100 mg BID PO Last administered on 02/27/19 08:37; Admin Dose 100 MG; Start 02/23/19 at 09:00 Famotidine (Pepcid) 20 mg BID PO Last administered on 02/27/19 08:38; Admin Dose 20 MG; Start 02/23/19 at 09:00 Isosorbide Dinitrate (Isordil) 10 mg TID PO Last administered on 02/27/19 12:29; Admin Dose 10 MG; Start 02/23/19 at 09:00 Nicotine (Nicoderm 21 Mg/ 24hr) 1 patch DAILY TRANSDERM Last administered on 08:39; Admin Dose 1 PATCH; Start 02/23/19 at 09:00 IV Flush (NS 3 ml) 3 ml PER PROTOCOL IV ; Start 02/22/19 at 22:30 Ondansetron HCl (Zofran Inj) 4 mg Q6H PRN IV NAUSEA/VOMITING Last administered on 02/24/19 15:27; Admin Dose 4 MG; Start 02/22/19 at 22:30 Nitroglycerin (Nitroglycerin (Sl Tab) 0.4 Mg) 1 tab Q5M PRN SL .CHEST PAIN; Start 02/22/19 at 22:30 Acetaminophen (Tylenol Tab) 650 mg Q6H PRN PO .PAIN 1-3 OR TEMP; Start 02/22/19 at 22:30 Acetaminophen/ Hydrocodone Bitart ([place] (5/325)) 1 tab Q6H PRN PO .PAIN 4-6 Last administered on 02/26/19at 23:49; Admin Dose 1 TAB; Start 02/22/19 at 22:30 Docusate Sodium (Colace) 100 mg Q12H PRN PO .CONSTIPATION; Start 02/22/19 at 22:30 Bisacodyl (Dulcolax) 5 mg DAILY PRN PO .CONSTIPATION; Start 02/22/19 at 22:30 Enoxaparin Sodium (Lovenox) 90 mg DAILY SC Last administered on 02/27/19 08:47; Admin Dose 90 MG; Start 02/25/19 at 09:00 Spironolactone (Aldactone) 12.5 mg DAILY PO Last administered on 02/27/19 08:39; Admin Dose 12.5 MG; Start 02/25/19 at 09:00 Hydralazine HCl (Apresoline) 10 mg Q8 PO Last administered on 02/27/19 13:29; Admin Dose 10 MG; Start 02/24/19 at 22:00 Carvedilol (Coreg) 6.25 mg BID PO Last administered on 02/27/19 08:41; Admin Dose 6.25 MG; Start 02/24/19 at 21:00 Ipratropium [place] (Atrovent 0.02% (Neb)) 0.5 mg Q4H RESP THERAPY PRN HHN sob Last administered on 02/27/19 12:48; Admin Dose 0.5 MG; Start 02/24/19 at 16:30 Levalbuterol (Xopenex Neb) 0.63 mg Q4H RESP THERAPY PRN HHN sob Last administ ered on 02/27/19 12:48; Admin Dose 0.63 MG; Start 02/24/19 at 16:00 Bumetanide (Bumex) 1 mg BID DIURETICS IV Last administered on 02/27/19 05:25; Admin Dose 1 MG; Start 02/24/19 at 16:47 Haloperidol (Haldol) 5 mg Q6 PRN IM AGITATION/ANXIETY Last administered on 02/25/19 04:35; Admin Dose 5 MG; Start 02/24/19 at 21:30 Miscellaneous Information Patients own medicat... BID@ XX ; Start 02/25/19 at 10:00 JOSE AGGARWAL Feb 27, 2019 14:52
--- NOTE | 2019-02-27 16:37 | PN ---
DATE: 02/27/2019 SUBJECTIVE: Chart reviewed. The patient currently on 2 liter nasal cannula, saturating 99% and does not appear in acute distress. PHYSICAL EXAMINATION: VITAL SIGNS: Blood pressure 125/72, pulse 89, respirations 20, temperature afebrile. HEENT: Pupils are equal and reactive to light. NECK: Supple, no JVD noted, no cervical adenopathy noted. LUNGS: Diminished breath sounds bilaterally. CARDIOVASCULAR: S1, S2 normal. ABDOMEN: Soft, nontender, no organ masses noted. EXTREMITIES: No clubbing or cyanosis noted. Trace edema present. NEUROLOGIC: No focal deficits. LABORATORY DATA: Sodium 135, potassium 4.0, chloride 92, CO2 34, BUN 34, creatinine 0.93, glucose 14 4. IMPRESSION: 1. Congestive heart failure, improving. 2. Likely underlying chronic obstructive pulmonary disease. 3. History of hepatitis C and cirrhosis. 4. Likely obstructive sleep apnea. 5. History of hypertension. 6. History of pulmonary embolism and deep venous thrombosis. RECOMMENDATIONS: 1. Continue current treatment. 2. BiPAP p.r.n. 3. Diuresis. 4. Anticoagulation. Dictated By: GERMAINE HSU MD, MA/NTS Conf#: [id number] DID#: [id number] CC: DAMEON MADRIGAL MD;*EndCC*
[2019-02-27] MEDS ORDERED: POTASSIUM CHLORIDE (SR) 20 MEQ TAB PO STA (16:45)
[2019-02-28] VITALS (8 sets, daily range): BP systolic 117–138; BP diastolic 79–97; PULSE 62–111; RESP 18–20
[2019-02-28] MEDS ORDERED: BUMETANIDE 1 MG INJ IV ONE (02:00)
--- NOTE | 2019-02-28 02:21 | EN ---
Date/Time of Note Date/Time of Note DATE: 02/28/19 TIME: 02:20 Event Note Medicine Medicine Event Note SUPERVISOR [employer]KS note dynamometer repairer called at approximately 1:30am. SUPERVISOR [employer] SERV[employer]ERKS called due to patient being cyanotic. As per the RN she came into the room to notice that the patient was noted to be minimally responsive and he was cyanotic. Patient was immediately put on a nonrebreather. Upon my arrival to the bedside the patient was slowly becoming more alert and awake. He was showing labored breathing. He was sinus tachycardic. He eventually was able to converse and full sentences without the need of any further intervention. Patient was also noted to have 2 visitors in the room with him. Earlier in the night the patient was noted to be agitated and likely withdrawing from previous meth use and he was given Ativan. The nonrebreather was removed and nasal cannula was placed at 2 L which showed an oxygenation of 98%. There is concern that the patient may have also used meth amphetamines again. Stat chest x-ray was ordered which did show pulmonary congestion. Vitals: Temp 97.8 heart rate 110 respirations 25 SPO2 98% on nasal cannula 2 L General: Patient initially lethargic but soon was able to become more awake and alert CVS: Sinus tachycardia Lungs: Rales/crackles bilaterally, labored breathing Neuro: Alert and oriented Psych: Agitated, anxious Assessment and plan: #1 acute hypoxic respiratory distress: Patient was initially observed to be cyanotic with decreased responsiveness. After receiving oxygen patient did improve. . Chest x-ray does show pulmonary congestion, Bumex 1 mg IV will be ordered. 0.25 IV milligram Ativan for agitation. BiPAP for support. There is concern that the patient may have been using an illicit substance possibly methamphetamine in the room. I did speak to the visitors at the bedside and requested that the patient be allowed to sleep alone and comfortably at night so that we can take care of his clinical condition they agreed. I also requested the nursing casting and pasting supervisor to have the patient moved to a room closer to the travel cota for closer observation. #2 illicit drug use: Concern for continued use of illicit drugs. Continue to monitor. PRN Ativan for agitation. Patient may need a sitter. Greater than 40 minutes of critical care time was spent on the care management this patient. LULY MCDONALD Feb 28, 2019 02:21
[2019-02-28] MEDS ORDERED: LORAZEPAM 2 MG INJ IV ONE ×4 (04:00→06:30)
[2019-02-28] MEDS ORDERED: QUETIAPINE 25 MG TAB PO ONE (04:00)
[2019-02-28] MEDS: BUMETANIDE 1 MG INJ IV SCH ×2 (05:29→17:10)
[2019-02-28] MEDS ORDERED: DIPHENHYDRAMINE 50 MG INJ IV ONE (06:30)
[2019-02-28] MEDS: IPRATROPIUM (NEB) 0.5 MG/2.5 ML AMP HHN PRN (08:40)
[2019-02-28] MEDS: LEVALBUTEROL (NEB) 0.63 MG/3 ML AMP HHN PRN (08:40)
[2019-02-28] MEDS: BALSAM PERU/CASTOR OIL 60 GM TUBE TOP SCH (08:40)
[2019-02-28] MEDS: NICOTINE (21 MG/24 HR) PATCH TRANSDERM SCH (08:53)
[2019-02-28] MEDS: DOCUSATE SODIUM 100 MG CAP PO SCH ×2 (09:00→21:00)
[2019-02-28] MEDS: ISOSORBIDE DINITRATE 10 MG TAB PO SCH ×3 (09:00→21:00)
[2019-02-28] MEDS: LISINOPRIL 5 MG TAB PO SCH (09:00)
[2019-02-28] MEDS: SPIRONOLACTONE 25 MG TAB PO SCH (09:00)
[2019-02-28] MEDS: FAMOTIDINE 20 MG TAB PO SCH ×2 (09:00→21:00)
[2019-02-28] MEDS: ENOXAPARIN 100 MG/ML SYG SC SCH ×2 (09:01→22:39)
--- NOTE | 2019-02-28 09:34 | PN ---
Date/Time of Note Date/Time of Note DATE: 02/28/19 TIME: 09:28 Assessment/Plan VTE Prophylaxis Risk score (from Nsg)>0 risk: 6 SCD applied (from Nsg): Yes Pharmacological prophylaxis: LMWH Lines/Catheters IV Catheter Type (from Nrsg): Peripheral IV Urinary Cath still in place: Yes Reason Cath still needed: other (indicate) (not needed) Assessment/Plan Assessment/Plan 48 yo man history of hep C cirrhosis, CHF, PE and DVT presents in CHF exacerbation; active drug use in hospital #Stimulant drug use in hospital, suspected. - The evening of 02/24 and early the morning of 02/28 patient had visitors in the room and then was found to be cyanotic and lethargic; followed by combative behavior and agitation. - Will send urine drug screen again to confirm. - For now protecting airway; will monitor on telemetry for now. - Continue sitter. No visitors. # Acute on chronic Systolic heart failure exacerbation: - Previous echocardiogram showed an ejection fraction of approximately 10 to 15%. - Bumex 1mg IV BID - Appears to be reaching euvolemia - Dr. Vazquez following. - Cont coreg, isordil. # History of pulmonary embolism / Left subclavian thrombus / Popiteal DVT: - Diagnosed on 12/01/2018. - Currently on subQ lovenox for poor renal function and inability to tolerate PO - Resume eliquis or xarelto on discharge. # Abdominal ascites: - Got therapeutic paracentesis earlier this admission. Studies not sent. # Liver cirrhosis: History of hepatitis C. We will check liver function test. Patient does have what appears to be abdominal ascites. We will continue diuresis. Will obtain abdominal ultrasound to assess degree of ascites for possible paracentesis. Undetectable viral load in 2018. Follow-up as an outpatient. Check ammonia level. # Chronic kidney disease: - Worsened after admission, now slightly improving. # COPD: PRN breathing treatments as indicated, DVT: lovenox GI: None Result Diagram: 02/26/19 0421 02/27/19 0006 Subjective 24 Hr Interval Summary Free Text/Dictation Overnight had visitors in the room and probably used stimulant drugs. See rapid response note. Required high doses of benzodiazepines early this morning. When I saw the patient he was obtunded, unresponsive to sternal rub, but breathing and protecting airway. Exam/Review of Systems Exam Vitals Vital Signs Date Temp Pulse Resp B/P (MAP) Pulse Ox O2 O2 Flow FiO2 Time Delivery Rate 02/28/19 100 5.0 08:40 02/28/19 105 22 Nasal 08:40 Cannula 02/28/19 98.3 129/95 07:46 (106) 02/28/19 30 05:44 Intake and Output 02/27/19 02/27/19 02/28/19 1515:00 23:00 07:00 IntakeIntake Total 400 ml 200 ml OutputOutput Total 200 ml BalanceBalance 200 ml 200 ml Exam General: Well developed man obtunded, unresponsive in bed. Neuro: Unresponsive to sternal rub. Protecting airway. HEENT: Atraumatic, normocephalic. Neck: Supple with full range of motion. No rigidity or meningismus Chest: Nontender Lungs: Clear to auscultation bilaterally. Heart: Normal S1-S2, Regular rhythm and rate. No murmur, S3, or S4 Abdomen: Soft , nondistended, nontender throughout. Extremities: Trace LE edema. Results Results 24hrs Laboratory Tests Test 02/27/19 17:10 02/28/19 01:34 02/28/19 01:40 Magnesium Level 1.9 Bedside Glucose 146 Blood Gas Specimen Source Blood arterial Arterial Blood Date Drawn 02/28/2019 1:40:22 AM Arterial Blood pH 7.427 (Temp corrected) Arterial Blood pCO2 46.3 H (Temp correct) Arterial Blood pO2 96.4 (Temp corrected) Arterial Blood HCO3 29.8 H Arterial Blood Base Excess 4.6 H Arterial Blood 97.1 Oxygen Saturation [place] Test N/A Arterial Blood Gas Right Brachial Puncture Site Arterial 0.9 Blood Carboxyhemoglobin Arterial Blood Methemoglobin 0.3 Oxyhemoglobin Percent 95.9 Blood Gas Temperature 37.0 Blood Gas Modality ROOM AIR FiO2 21.0 Blood Gas Critical Value Brady MCDONALD MD Read Back Blood Gas Notified Whom ABDOULAYE Blood Gas Notified Time 02/28/2019 1:49:03 AM Medications Medication Current Medications Docusate Sodium (Colace) 100 mg BID PO Last administered on 02/27/19at 20:30; Admin Dose 100 MG; Start 02/23/19 at 09:00 Famotidine (Pepcid) 20 mg BID PO Last administered on 02/27/19at 20:30; Admin Dose 20 MG; Start 02/23/19 at 09:00 Isosorbide Dinitrate (Isordil) 10 mg TID PO Last administered on 02/27/19 20:32; Admin Dose 10 MG; Start 02/23/19 at 09:00 Nicotine (Nicoderm 21 Mg/ 24hr) 1 patch DAILY TRANSDERM Last administered on 02/28/19 08:53; Admin Dose 1 PATCH; Start 02/23/19 at 09:00 IV Flush (NS 3 ml) 3 ml PER PROTOCOL IV ; Start 02/22/19 at 22:30 Ondansetron HCl (Zofran Inj) 4 mg Q6H PRN IV NAUSEA/VOMITING Last administered on 02/24/19 15:27; Admin Dose 4 MG; Start 02/22/19 at 22:30 Nitroglycerin (Nitroglycerin (Sl Tab) 0.4 Mg) 1 tab Q5M PRN SL .CHEST PAIN; Start 02/22/19 at 22:30 Acetaminophen (Tylenol Tab) 650 mg Q6H PRN PO .PAIN 1-3 OR TEMP; Start 02/22/19 at 22:30 Acetaminophen/ Hydrocodone Bitart ([place] (5/325)) 1 tab Q6H PRN PO .PAIN 4-6 Last administered on 02/26/19 23:49; Admin Dose 1 TAB; Start 02/22/19 at 22:30 Docusate Sodium (Colace) 100 mg Q12H PRN PO .CONSTIPATION; Start 02/22/19 at 22:30 Bisacodyl (Dulcolax) 5 mg DAILY PRN PO .CONSTIPATION; Start 02/22/19 at 22:30 Spironolactone (Aldactone) 12.5 mg DAILY PO Last administered on 02/27/19 08:39; Admin Dose 12.5 MG; Start 02/25/19 at 09:00 Carvedilol (Coreg) 6.25 mg BID PO Last administered on 02/27/19 20:33; Admin Dose 6.25 MG; Start 02/24/19 at 21:00 Ipratropium [place] (Atrovent 0.02% (Neb)) 0.5 mg Q4H RESP THERAPY PRN HHN sob Last administered on 02/28/19 08:40; Admin Dose 0.5 MG; Start 02/24/19 at 16:30 Levalbuterol (Xopenex Neb) 0.63 mg Q4H RESP THERAPY PRN HHN sob Last administered on 02/28/19at 08:40; Admin Dose 0.63 MG; Start 02/24/19 at 16:00 Bumetanide (Bumex) 1 mg BID DIURETICS IV Last administered on 02/28/19at 05:29; Admin Dose 1 MG; Start 02/24/19 at 16:47 Haloperidol (Haldol) 5 mg Q6 PRN IM AGITATION/ANXIETY Last administered on 02/25/19at 04:35; Admin Dose 5 MG; Start 02/24/19 at 21:30 Miscellaneous Information Patients own medicat... BID@10,16 XX ; Start 02/25/19 at 10:00 Enoxaparin Sodium (Lovenox) 90 mg BID SC Last administered on 02/28/19at 09:01; Admin Dose 90 MG; Start 02/27/19 at 21:00 Lisinopril (Zestril) 2.5 mg DAILY PO ; Start 02/28/19 at 09:00 JOSE BRADY MD Feb 28, 2019 09:34
--- NOTE | 2019-02-28 13:52 | CONS ---
Assessment/Plan Assessment/Plan Hospital Course (Demo Recall) IMP: 1.CHF-systolic acute on chronic 2.Cardiomyopathy-EF 15-20% 3.orthopnea/CURRY 4.NSVT 5.ARF-significantly improved 6.H/O substance abuse 7.Cirrhosis/ascites 8. anxiety-was having yesterday and now lethargic s/p Ativan Recc: -Now back on tele -Continue bumex diuresis and follow renal function and volume status clsoely -Continue aldactone as possible and follow K closely -Continue coreg and ACEI as possible when patient more arouasable -Continue isordil for now -Continue lovenox SQ BID now with improved renal function -Keep K>4 and Mg>2 as possible Consultation Date/Type/Reason Admit Date/Time Feb 22, 2019 at 20:25 Initial Consult Date 02/23/19 Type of Consult Cardiology Reason for Consultation CHF Requesting Provider: JUSTIN PAREKH MD Date/Time of Note DATE: 02/28/19 TIME: 13:49 Exam/Review of Systems Vital Signs Vitals Vital Signs Date Temp Pulse Resp B/P (MAP) Pulse Ox O2 O2 Flow FiO2 Time Delivery Rate 02/28/19 98.6 103 18 138/94 97 12:55 (109) 02/28/19 5.0 08:40 02/28/19 Nasal 08:40 Cannula 02/28/19 30 05:44 Intake and Output 02/27/19 02/27/19 02/28/19 1515:00 23:00 07:00 IntakeIntake Total 400 ml 200 ml 200 ml OutputOutput Total 200 ml 500 ml BalanceBalance 200 ml 200 ml -300 ml Exam Exam Review of Systems: CONSTITUTIONAL: No fevers, chills. PULMONARY: No sob CARDIOVASCULAR: No chest pain/palpitations GASTROINTESTINAL: No nausea/vomiting. GENITOURINARY: No hematuria/dysuria. MUSCULOSKELETAL: No myagias/arthalgias. PSYCHIATRIC: The patient denies depression. NEUROLOGIC: lethargic Constitutional: other (sleeping, somewhat difficult to arouse) Head: normocephalic ENMT: mucosa pink and moist Neck: supple, jvd (9 cm water) Respiratory: diminished breath sounds (at bases/B) Cardiovascular: regular rate and rhythm Gastrointestinal: soft Musculoskeletal: muscle tone (normal) Extremities: edema (none) Neurological: other (No focal deficits) Labs Result Diagram: 02/28/19 0959 02/28/19 1145 Results 24hrs Laboratory Tests Test 02/27/19 17:10 02/28/19 01:34 02/28/19 01:40 02/28/19 09:59 Magnesium Level 1.9 2.0 Bedside Glucose 146 Blood Gas Blood arterial Specimen Source Arterial Blood 02/28/2019 1:40:2 Date Drawn 2 AM Arterial Blood pH 7.427 (Temp corrected) Arterial Blood 46.3 H pCO2 (Temp correct) Arterial Blood 96.4 pO2 (Temp corrected) Arterial Blood 29.8 H HCO3 Arterial Blood 4.6 H Base Excess Arterial Blood 97.1 Oxygen Saturation Louis Test N/A Arterial Blood Right Brachial Gas Puncture Site Arterial 0.9 Blood Carboxyhemo globin Arterial Blood 0.3 Methemoglobin Oxyhemoglobin 95.9 Percent Blood Gas 37.0 Temperature Blood Gas ROOM AIR Modality FiO2 21.0 Blood Gas Brady MCDONALD MD Critical Value Read Back Blood Gas ABDOULAYE Notified Whom Blood Gas 02/28/2019 1:49:0 Notified Time 3 AM White Blood Count 10.9 H Red Blood Count 5.65 Hemoglobin 13.6 L Hematocrit 48.0 Mean Corpuscular 85.0 Volume Mean Corpuscular 24.1 L Hemoglobin Mean Corpuscular 28.3 L Hemoglobin Concen t Red Cell 19.9 H Distribution Width Platelet Count 357 Mean Platelet 9.9 Volume Immature 0.700 H Granulocytes % Neutrophils % 71.7 Lymphocytes % 12.7 L Monocytes % 13.9 H Eosinophils % 0.5 Basophils % 0.5 Nucleated Red 0.0 Blood Cells % Immature 0.080 H Granulocytes # Neutrophils # 7.8 H Lymphocytes # 1.4 Monocytes # 1.5 H Eosinophils # 0.1 Basophils # 0.1 Nucleated Red 0.0 Blood Cells # Sodium Level 134 L Potassium Level 5.7 H Chloride Level 92 L Carbon Dioxide 28 Level Anion Gap 14 H Blood Urea 31 H Nitrogen Creatinine 0.85 Est Glomerular > 60 Filtrat Rate mL/min Glucose Level 91 # Calcium Level 9.4 Phosphorus Level 4.2 Total Bilirubin 0.8 Direct Bilirubin 0.00 Indirect 0.8 Bilirubin Aspartate Amino 42 Transf (AST/SGOT) Alanine 26 Aminotransferase (ALT/SGPT) Alkaline 206 H Phosphatase Total Protein 7.5 Albumin 3.7 Globulin 3.80 H Albumin/Globulin 0.97 Ratio Test 02/28/19 11:00 02/28/19 11:45 Urine Opiates Negative Screen Urine Negative Barbiturates Urine Positive Amphetamines Screen Urine Negative Benzodiazepines Screen Urine Cocaine Negative Screen Urine Positive Cannabinoids Sodium Level 137 Potassium Level 4.9 Chloride Level 93 L Carbon Dioxide 33 H Level Anion Gap 11 Blood Urea 31 H Nitrogen Creatinine 0.80 Est Glomerular > 60 Filtrat Rate mL/min Glucose Level 96 Calcium Level 9.4 Medications Medications Current Medications Docusate Sodium (Colace) 100 mg BID PO Last administered on 02/27/19 20:30; Admin Dose 100 MG; Start 02/23/19 at 09:00 Famotidine (Pepcid) 20 mg BID PO Last administered on 02/27/19 20:30; Admin Dose 20 MG; Start 02/23/19 at 09:00 Isosorbide Dinitrate (Isordil) 10 mg TID PO Last administered on 02/27/19 20:32; Admin Dose 10 MG; Start 02/23/19 at 09:00 Nicotine (Nicoderm 21 Mg/ 24hr) 1 patch DAILY TRANSDERM Last administered on 02/28/19 08:53; Admin Dose 1 PATCH; Start 02/23/19 at 09:00 IV Flush (NS 3 ml) 3 ml PER PROTOCOL IV ; Start 02/22/19 at 22:30 Ondansetron HCl (Zofran Inj) 4 mg Q6H PRN IV NAUSEA/VOMITING Last administered on 02/24/19 15:27; Admin Dose 4 MG; Start 02/22/19 at 22:30 Nitroglycerin (Nitroglycerin (Sl Tab) 0.4 Mg) 1 tab Q5M PRN SL .CHEST PAIN; Start 02/22/19 at 22:30 Acetaminophen (Tylenol Tab) 650 mg Q6H PRN PO .PAIN 1-3 OR TEMP; Start 02/22/19 at 22:30 Acetaminophen/ Hydrocodone Bitart ([place] (5/325)) 1 tab Q6H PRN PO .PAIN 4-6 Last administered on 02/26/19 23:49; Admin Dose 1 TAB; Start 02/22/19 at 22:30 Docusate Sodium (Colace) 100 mg Q12H PRN PO .CONSTIPATION; Start 02/22/19 at 22:30 Bisacodyl (Dulcolax) 5 mg DAILY PRN PO .CONSTIPATION; Start 02/22/19 at 22:30 Spironolactone (Aldactone) 12.5 mg DAILY PO Last administered on 02/27/19 08:39; Admin Dose 12.5 MG; Start 02/25/19 at 09:00 Carvedilol (Coreg) 6.25 mg BID PO Last administered on 02/27/19at 20:33; Admin Dose 6.25 MG; Start 02/24/19 at 21:00 Ipratropium [place] (Atrovent 0.02% (Neb)) 0.5 mg Q4H RESP THERAPY PRN HHN sob Last administered on 02/28/19 08:40; Admin Dose 0.5 MG; Start 02/24/19 at 16:30 Levalbuterol (Xopenex Neb) 0.63 mg Q4H RESP THERAPY PRN HHN sob Last administered on 02/28/19 08:40; Admin Dose 0.63 MG; Start 02/24/19 at 16:00 Bumetanide (Bumex) 1 mg BID DIURETICS IV Last administered on 02/28/19 05:29; Admin Dose 1 MG; Start 02/24/19 at 16:47 Haloperidol (Haldol) 5 mg Q6 PRN IM AGITATION/ANXIETY Last administered on 02/25/19at 04:35; Admin Dose 5 MG; Start 02/24/19 at 21:30 Miscellaneous Information Patients own medicat... BID@10,16 XX ; Start 02/25/19 at 10:00 Enoxaparin Sodium (Lovenox) 90 mg BID SC Last administered on 02/28/19at 09:01; Admin Dose 90 MG; Start 02/27/19 at 21:00 Lisinopril (Zestril) 2.5 mg DAILY PO ; Start 02/28/19 at 09:00 JOSE AGGARWAL Feb 28, 2019 13:52
[2019-02-28] MEDS ORDERED: METOPROLOL 5 MG INJ IV PRN (15:00)
[2019-02-28] MEDS ORDERED: DIGOXIN 500 MCG INJ IV ONE (15:00)
--- NOTE | 2019-02-28 16:40 | PN ---
DATE: 02/28/2019 SUBJECTIVE: Chart reviewed. The patient on 5 liter nasal cannula, saturating 97% and does not appea r in acute distress. PHYSICAL EXAMINATION: VITAL SIGNS: Blood pressure 138/94, pulse 103, respiration 18, temperature 98.6. HEENT: Pupils are equal and reactive to light. NECK: Supple, no JVD noted, no cervical adenopathy noted. LUNGS: Diminished breath sounds bilaterally. CARDIOVASCULAR: S1, S2 normal. ABDOMEN: Soft, nontender. No megaly or masses noted. EXTREMITIES: No clubbing, cyanosis noted. NEUROLOGIC: No changes. LABORATORY DATA: WBC 10.9, hemoglobin 13.6, hematocrit 48, platelets 357. Sodium 137, potassium 4.9 , chloride 93, CO2 33, BUN 31, creatinine 0.8, glucose 96. ABG shows pH of 7.42, pCO2 of 46, pO2 of 96. IMAGING: Chest x-ray shows bibasilar infiltrate and effusion. ASSESSMENT AND PLAN: 1. Congestive heart failure. 2. Status post [employer] last night. The patient was treated with IV Bumex and required brief BiPAP suppo rt, now back to O2 nasal cannula. 3. Underlying chronic obstructive pulmonary disease. 4. History of hepatitis C and cirrhosis. 5. Obstructive sleep apnea, likely. 6. History of hypertension. 7. History of pulmonary embolism and deep venous thrombosis. 8. History of stimulant drug abuse. RECOMMENDATIONS: 1. BiPAP p.r.n. 2. Oxygen. 3. Diuresis. 4. Followup labs and x-ray. Dictated By: GERMAINE HSU MD, MA/ELDA Conf#: [id number] DID#: [id number] CC: DAMEON MADRIGAL MD;*EndCC*
[2019-02-28] MEDS ORDERED: LORAZEPAM 2 MG INJ ONE (21:21)
[2019-02-28] MEDS: LORAZEPAM 2 MG INJ IV PRN (21:28)
[2019-02-28] MEDS: HALOPERIDOL 5 MG INJ IM PRN (21:30)
[2019-03-01] VITALS (8 sets, daily range): BP systolic 115–137; BP diastolic 70–90; PULSE 89–94; RESP 16–20
[2019-03-01] MEDS: LORAZEPAM 2 MG INJ IV PRN ×2 (02:43→06:13)
[2019-03-01] MEDS: BUMETANIDE 1 MG INJ IV SCH ×2 (05:41→17:55)
[2019-03-01] MEDS: NICOTINE (21 MG/24 HR) PATCH TRANSDERM SCH (09:43)
[2019-03-01] MEDS: ENOXAPARIN 100 MG/ML SYG SC SCH ×2 (09:47→20:23)
[2019-03-01] MEDS: DOCUSATE SODIUM 100 MG CAP PO SCH ×2 (11:21→21:00)
[2019-03-01] MEDS: SPIRONOLACTONE 25 MG TAB PO SCH (11:21)
[2019-03-01] MEDS: FAMOTIDINE 20 MG TAB PO SCH ×2 (11:22→21:00)
[2019-03-01] MEDS: ISOSORBIDE DINITRATE 10 MG TAB PO SCH ×3 (11:22→21:00)
[2019-03-01] MEDS: LISINOPRIL 5 MG TAB PO SCH (11:23)
[2019-03-01] MEDS: BALSAM PERU/CASTOR OIL 60 GM TUBE TOP SCH ×2 (11:28→12:28)
--- NOTE | 2019-03-01 11:29 | PN ---
Date/Time of Note Date/Time of Note DATE: 03/01/19 TIME: 11:22 Assessment/Plan VTE Prophylaxis Risk score (from Ns)>0 risk: 5 SCD applied (from [facility] [place]): No SCD contraindicated: other Pharmacological prophylaxis: LMWH Lines/Catheters IV C[facility]ter Type [facility]from [facility] Saline Lock Urinary Cath still in place: Yes Reason Cath still needed: urinary retention Assessment/Plan Hospital Course S: Patient again lethargic this morning. Did receive Ativan last night secondary to agitation. Had to be placed in restraints early this morning. O: VS- see below PE: General: Well developed man obtunded, unresponsive in bed. Neuro: Unresponsive to sternal rub. Protecting airway. HEENT: Atraumatic, normocephalic. Neck: Supple with full range of motion. No rigidity or meningismus Chest: Nontender Lungs: Clear to auscultation bilaterally. Heart: Normal S1-S2, Regular rhythm and rate. No murmur, S3, or S4 Abdomen: Soft , nondistended, nontender throughout. Extremities: Trace LE edema. Assessment/Plan: 48 yo man history of hep C cirrhosis, CHF, PE and DVT presents in CHF exacerbation; active drug use in hospital. # Acute on chronic Systolic heart failure exacerbation- Previous echocardiogram showed an ejection fraction of approximately 10 to 15%- Appears to be reaching euvolemia -For now continue Bumex 1mg IV BID - Dr. Vazquez following, follow-up with her cardiology recommendations - Cont coreg, isordil. #Stimulant drug use in hospital, suspected- The evening of 02/24 and early the morning of 02/28 patient had visitors in the room and then was found to be cyanotic and lethargic; followed by combative behavior and agitation. -Follow-up the results of the repeat urine drug screen again to confirm. - For now protecting airway; will monitor on telemetry for now. - Continue sitter. No visitors. # History of pulmonary embolism / Left subclavian thrombus / Popiteal DVT- Diagnosed on 12/01/2018. - Currently on subQ lovenox for inability to tolerate PO - Resume eliquis or xarelto on discharge. # Abdominal ascites- Got therapeutic paracentesis earlier this admission. Studies not sent. -Monitor for now # Liver cirrhosis: History of hepatitis C. Undetectable viral load in 2017. Ammonia levels normal on February 23 - continue diuresis. #Acute on likely kidney disease- Worsened after admission, now resolved -Monitor # COPD: PRN breathing treatments as indicated DVT: lovenox GI: None Result Diagram: 03/01/1971703/01/19717 Results 24hrs Laboratory Tests Test 02/28/19 11:45 03/01/19 07:18 Sodium Level 137 141 Potassium Level 4.9 3.9 Chloride Level 93 L 95 L Carbon Dioxide Level 33 H 38 H Anion Gap 11 8 Blood Urea Nitrogen 31 H 27 H Creatinine 0.80 0.67 Est Glomerular Filtrat Rate mL/min > 60 > 60 Glucose Level 96 78 Calcium Level 9.4 9.2 White Blood Count 9.8 Red Blood Count 5.68 Hemoglobin 13.6 L Hematocrit 47.7 Mean Corpuscular Volume 84.0 Mean Corpuscular Hemoglobin 23.9 L Mean Corpuscular Hemoglobin Concent 28.5 L Red Cell Distribution Width 19.9 H Platelet Count 260 # Mean Platelet Volume 10.1 Immature Granulocytes % 0.700 H Neutrophils % 69.6 Lymphocytes % 11.3 L Monocytes % 16.6 H Eosinophils % 1.3 Basophils % 0.5 Nucleated Red Blood Cells % 0.0 Immature Granulocytes # 0.070 H Neutrophils # 6.9 Lymphocytes # 1.1 Monocytes # 1.6 H Eosinophils # 0.1 Basophils # 0.1 Nucleated Red Blood Cells # 0.0 Phosphorus Level 3.1 Magnesium Level 1.8 Exam/Review of Systems Exam Vitals Vital Signs Date Temp Pulse Resp B/P (MAP) Pulse Ox O2 O2 Flow FiO2 Time Delivery Rate 03/01/19 98 2.0 10:24 03/01/19 97.6 90 18 125/81 Nasal 10:00 (96) Cannula 02/28/19 30 05:44 Intake and Output 02/28/19 02/28/19 03/01/19 1515:00 23:00 07:00 IntakeIntake Total 200 ml OutputOutput Total 2700 ml 700 ml BalanceBalance -2700 ml -500 ml Results Results 24hrs Laboratory Tests Test 02/28/19 11:45 03/01/19 07:18 Sodium Level 137 141 Potassium Level 4.9 3.9 Chloride Level 93 L 95 L Carbon Dioxide Level 33 H 38 H Anion Gap 11 8 Blood Urea Nitrogen 31 H 27 H Creatinine 0.80 0.67 Est Glomerular Filtrat Rate mL/min > 60 > 60 Glucose Level 96 78 Calcium Level 9.4 9.2 White Blood Count 9.8 Red Blood Count 5.68 Hemoglobin 13.6 L Hematocrit 47.7 Mean Corpuscular Volume 84.0 Mean Corpuscular Hemoglobin 23.9 L Mean Corpuscular Hemoglobin Concent 28.5 L Red Cell Distribution Width 19.9 H Platelet Count 260 # Mean Platelet Volume 10.1 Immature Granulocytes % 0.700 H Neutrophils % 69.6 Lymphocytes % 11.3 L Monocytes % 16.6 H Eosinophils % 1.3 Basophils % 0.5 Nucleated Red Blood Cells % 0.0 Immature Granulocytes # 0.070 H Neutrophils # 6.9 Lymphocytes # 1.1 Monocytes # 1.6 H Eosinophils # 0.1 Basophils # 0.1 Nucleated Red Blood Cells # 0.0 Phosphorus Level 3.1 Magnesium Level 1.8 Medications Medication Current Medications Docusate Sodium (Colace) 100 mg BID PO Last administered on 02/27/19 20:30; Admin Dose 100 MG; Start 02/23/19 at 09:00 Famotidine (Pepcid) 20 mg BID PO Last administered on 02/27/19 20:30; Admin Dose 20 MG; Start 02/23/19 at 09:00 Isosorbide Dinitrate (Isordil) 10 mg TID PO Last administered on 02/27/19 20:32; Admin Dose 10 MG; Start 02/23/19 at 09:00 Nicotine (Nicoderm 21 Mg/ 24hr) 1 patch DAILY TRANSDERM Last administered on 03/01/19 09:43; Admin Dose 1 PATCH; Start 02/23/19 at 09:00 IV Flush (NS 3 ml) 3 ml PER PROTOCOL IV ; Start 02/22/19 at 22:30 Ondansetron HCl (Zofran Inj) 4 mg Q6H PRN IV NAUSEA/VOMITING Last administered on 02/24/19 15:27; Admin Dose 4 MG; Start 02/22/19 at 22:30 Nitroglycerin (Nitroglycerin (Sl Tab) 0.4 Mg) 1 tab Q5M PRN SL .CHEST PAIN; Start 02/22/19 at 22:30 Acetaminophen (Tylenol Tab) 650 mg Q6H PRN PO .PAIN 1-3 OR TEMP; Start 02/22/19 at 22:30 Acetaminophen/ Hydrocodone Bitart ([place] (5/325)) 1 tab Q6H PRN PO .PAIN 4-6 Last administered on 02/26/19at 23:49; Admin Dose 1 TAB; Start 02/22/19 at 22:30 Docusate Sodium (Colace) 100 mg Q12H PRN PO .CONSTIPATION; Start 02/22/19 at 22:30 Bisacodyl (Dulcolax) 5 mg DAILY PRN PO .CONSTIPATION; Start 02/22/19 at 22:30 Spironolactone (Aldactone) 12.5 mg DAILY PO Last administered on 02/27/19 08:39; Admin Dose 12.5 MG; Start 02/25/19 at 09:00 Carvedilol (Coreg) 6.25 mg BID PO Last administered on 02/27/19 20:33; Admin Dose 6.25 MG; Start 02/24/19 at 21:00 Ipratropium [place] (Atrovent 0.02% (Neb)) 0.5 mg Q4H RESP THERAPY PRN HHN sob Last administered on 02/28/19 08:40; Admin Dose 0.5 MG; Start 02/24/19 at 16:30 Levalbuterol (Xopenex Neb) 0.63 mg Q4H RESP THERAPY PRN HHN sob Last adminis tered on 02/28/19 08:40; Admin Dose 0.63 MG; Start 02/24/19 at 16:00 Bumetanide (Bumex) 1 mg BID DIURETICS IV Last administered on 03/01/19 05:41; Admin Dose 1 MG; Start 02/24/19 at 16:47 Haloperidol (Haldol) 5 mg Q6 PRN IM AGITATION/ANXIETY Last administered on 02/25/19 04:35; Admin Dose 5 MG; Start 02/24/19 at 21:30 Miscellaneous Information Patients own medicat... BID@10,16 XX ; Start 02/25/19 at 10:00 Enoxaparin Sodium (Lovenox) 90 mg BID SC Last administered on 03/01/19 09:47; Admin Dose 90 MG; Start 02/27/19 at 21:00 Lisinopril (Zestril) 2.5 mg DAILY PO ; Start 02/28/19 at 09:00 Metoprolol Tartrate (Lopressor) 5 mg Q4H PRN IV HR>110 Hold SBP<100; Start 02/28/19 at 15:00 Lorazepam (Ativan) 0.5 mg Q3H PRN IV AGITATION/ANXIETY Last administered on 03/01/19at 06:13; Admin Dose 0.5 MG; Start 02/28/19 at 21:20 IRINEO MARC Mar 01, 2019 11:29
--- NOTE | 2019-03-01 11:50 | CONS ---
Assessment/Plan Assessment/Plan Hospital Course (Demo Recall) IMP: 1.CHF-systolic acute on chronic 2.Cardiomyopathy-EF 15-20% 3.orthopnea/CURRY 4.NSVT 5.ARF-significantly improved 6.H/O substance abuse- suspected substance in hospital 02/24, and 02/28 with vis itors in room and then very lethargic thereafter. Tox screen positive for amphetamines/cannibinoids 7.Cirrhosis/ascites 8. anxiety-was having and now lethargic s/p Ativan Recc: -Now back on tele -hold further ativan -Continue bumex diuresis and follow renal function and volume status clsoely -Continue aldactone as possible and follow K closely -Continue coreg and ACEI as possible when patient more arousable -Continue isordil for now -Continue lovenox SQ BID now with improved renal function -Keep K>4 and Mg>2 as possible -consider repeat head CT Consultation Date/Type/Reason Admit Date/Time Feb 22, 2019 at 20:25 Initial Consult Date 02/23/19 Type of Consult Cardiology Reason for Consultation cardiomyopathy/CHF Requesting Provider: JUSTIN PAREKH MD Date/Time of Note DATE: 03/01/19 TIME: 11:46 Exam/Review of Systems Vital Signs Vitals Vital Signs Date Temp Pulse Resp B/P (MAP) Pulse Ox O2 O2 Flow FiO2 Time Delivery Rate 03/01/19 98 2.0 10:24 03/01/19 97.6 90 18 125/81 Nasal 10:00 (96) Cannula 02/28/19 30 05:44 Intake and Output 02/28/19 02/28/19 03/01/19 1515:00 23:00 07:00 IntakeIntake Total 200 ml OutputOutput Total 2700 ml 700 ml BalanceBalance -2700 ml -500 ml Exam Exam Review of Systems: CONSTITUTIONAL: No fevers, chills. PULMONARY: No sob CARDIOVASCULAR: No chest pain/palpitations GASTROINTESTINAL: No nausea/vomiting. GENITOURINARY: No hematuria/dysuria. MUSCULOSKELETAL: No myagias/arthalgias. PSYCHIATRIC: The patient denies depression. NEUROLOGIC: lethargic, difficult to arouse Constitutional: other (encephalopathic, difficult to arouse) Head: normocephalic ENMT: mucosa pink and moist Neck: supple, jvd (9-10 cm water) Respiratory: diminished breath sounds (at bases/B) Cardiovascular: regular rate and rhythm Gastrointestinal: soft, non-tender Musculoskeletal: muscle weakness (mild generalized) Extremities: edema (trace/B LE) Neurological: lethargic Labs Result Diagram: 03/01/1971703/01/19 0718 Results 24hrs Laboratory Tests Test 03/01/19 07:18 White Blood Count 9.8 Red Blood Count 5.68 Hemoglobin 13.6 L Hematocrit 47.7 Mean Corpuscular Volume 84.0 Mean Corpuscular Hemoglobin 23.9 L Mean Corpuscular Hemoglobin Concent 28.5 L Red Cell Distribution Width 19.9 H Platelet Count 260 # Mean Platelet Volume 10.1 Immature Granulocytes % 0.700 H Neutrophils % 69.6 Lymphocytes % 11.3 L Monocytes % 16.6 H Eosinophils % 1.3 Basophils % 0.5 Nucleated Red Blood Cells % 0.0 Immature Granulocytes # 0.070 H Neutrophils # 6.9 Lymphocytes # 1.1 Monocytes # 1.6 H Eosinophils # 0.1 Basophils # 0.1 Nucleated Red Blood Cells # 0.0 Sodium Level 141 Potassium Level 3.9 Chloride Level 95 L Carbon Dioxide Level 38 H Anion Gap 8 Blood Urea Nitrogen 27 H Creatinine 0.67 Est Glomerular Filtrat Rate mL/min > 60 Glucose Level 78 Calcium Level 9.2 Phosphorus Level 3.1 Magnesium Level 1.8 Medications Medications Current Medications Docusate Sodium (Colace) 100 mg BID PO Last administered on 02/27/19at 20:30; Admin Dose 100 MG; Start 02/23/19 at 09:00 Famotidine (Pepcid) 20 mg BID PO Last administered on 02/27/19 20:30; Admin Dose 20 MG; Start 02/23/19 at 09:00 Isosorbide Dinitrate (Isordil) 10 mg TID PO Last administered on 02/27/19at 20:32; Admin Dose 10 MG; Start 02/23/19 at 09:00 Nicotine (Nicoderm 21 Mg/ 24hr) 1 patch DAILY TRANSDERM Last administered on 03/01/19at 09:43; Admin Dose 1 PATCH; Start 02/23/19 at 09:00 IV Flush (NS 3 ml) 3 ml PER PROTOCOL IV ; Start 02/22/19 at 22:30 Ondansetron HCl (Zofran Inj) 4 mg Q6H PRN IV NAUSEA/VOMITING Last administered on 02/24/19 15:27; Admin Dose 4 MG; Start 02/22/19 at 22:30 Nitroglycerin (Nitroglycerin (Sl Tab) 0.4 Mg) 1 tab Q5M PRN SL .CHEST PAIN; Start 02/22/19 at 22:30 Acetaminophen (Tylenol Tab) 650 mg Q6H PRN PO .PAIN 1-3 OR TEMP; Start 02/22/19 at 22:30 Acetaminophen/ Hydrocodone Bitart ([place] (5/325)) 1 tab Q6H PRN PO .PAIN 4-6 Last administered on 02/26/19 23:49; Admin Dose 1 TAB; Start 02/22/19 at 22:30 Docusate Sodium (Colace) 100 mg Q12H PRN PO .CONSTIPATION; Start 02/22/19 at 22:30 Bisacodyl (Dulcolax) 5 mg DAILY PRN PO .CONSTIPATION; Start 02/22/19 at 22:30 Spironolactone (Aldactone) 12.5 mg DAILY PO Last administered on 02/27/19 08:39; Admin Dose 12.5 MG; Start 02/25/19 at 09:00 Carvedilol (Coreg) 6.25 mg BID PO Last administered on 02/27/19 20:33; Admin Dose 6.25 MG; Start 02/24/19 at 21:00 Ipratropium [place] (Atrovent 0.02% (Neb)) 0.5 mg Q4H RESP THERAPY PRN HHN sob Last administered on 02/28/19 08:40; Admin Dose 0.5 MG; Start 02/24/19 at 16:30 Levalbuterol (Xopenex Neb) 0.63 mg Q4H RESP THERAPY PRN HHN sob Last administered on 02/28/19 08:40; Admin Dose 0.63 MG; Start 02/24/19 at 16:00 Bumetanide (Bumex) 1 mg BID DIURETICS IV Last administered on 03/01/19 05:41; Admin Dose 1 MG; Start 02/24/19 at 16:47 Haloperidol (Haldol) 5 mg Q6 PRN IM AGITATION/ANXIETY Last administered on 02/25/19 04:35; Admin Dose 5 MG; Start 02/24/19 at 21:30 Miscellaneous Information Patients own medicat... BID@10,16 XX ; Start 02/25/19 at 10:00 Enoxaparin Sodium (Lovenox) 90 mg BID SC Last administered on 03/01/19at 09:47; Admin Dose 90 MG; Start 02/27/19 at 21:00 Lisinopril (Zestril) 2.5 mg DAILY PO ; Start 02/28/19 at 09:00 Metoprolol Tartrate (Lopressor) 5 mg Q4H PRN IV HR>110 Hold SBP<100; Start 02/28/19 at 15:00 Lorazepam (Ativan) 0.5 mg Q3H PRN IV AGITATION/ANXIETY Last administered on 03/01/19at 06:13; Admin Dose 0.5 MG; Start 02/28/19 at 21:20 JOSE AGGARWAL Mar 01, 2019 11:50
--- NOTE | 2019-03-01 13:53 | CONS ---
Consult Date/Type/Reason Admit Date/Time Feb 22, 2019 at 20:25 Initial Consult Date 02/25/19 Type of Consult Pulmonary Requesting Provider: JUSTIN PAREKH MD Date/Time of Note DATE: 03/01/19 TIME: 13:53 Subjective PHYSICAL EXAMINATION: VITAL SIGNS: HEENT: Pupils are equal and reactive to light. NECK: Supple, no JVD noted, no cervical adenopathy noted. LUNGS: Diminished breath sounds bilaterally. CARDIOVASCULAR: S1, S2 normal. ABDOMEN: Soft, nontender. No megaly or masses noted. EXTREMITIES: No clubbing, cyanosis noted. NEUROLOGIC: No changes. Objective Vital Signs Date Temp Pulse Resp B/P (MAP) Pulse Ox O2 O2 Flow FiO2 Time Delivery Rate 03/01/19 97.7 89 16 115/72 96 Nasal 12:00 (86) Cannula 03/01/19 2.0 10:24 02/28/19 30 05:44 Intake and Output 02/28/19 02/28/19 03/01/19 1515:00 23:00 07:00 IntakeIntake Total 200 ml OutputOutput Total 2700 ml 700 ml BalanceBalance -2700 ml -500 ml Vent Setting Fraction of Inspired Oxygen pe: 28 Results/Medications Result Diagram: 03/01/19 0718 03/01/19 0718 Results 24 hrs Laboratory Tests Test 03/01/19 07:18 White Blood Count 9.8 Red Blood Count 5.68 Hemoglobin 13.6 L Hematocrit 47.7 Mean Corpuscular Volume 84.0 Mean Corpuscular Hemoglobin 23.9 L Mean Corpuscular Hemoglobin Concent 28.5 L Red Cell Distribution Width 19.9 H Platelet Count 260 # Mean Platelet Volume 10.1 Immature Granulocytes % 0.700 H Neutrophils % 69.6 Lymphocytes % 11.3 L Monocytes % 16.6 H Eosinophils % 1.3 Basophils % 0.5 Nucleated Red Blood Cells % 0.0 Immature Granulocytes # 0.070 H Neutrophils # 6.9 Lymphocytes # 1.1 Monocytes # 1.6 H Eosinophils # 0.1 Basophils # 0.1 Nucleated Red Blood Cells # 0.0 Sodium Level 141 Potassium Level 3.9 Chloride Level 95 L Carbon Dioxide Level 38 H Anion Gap 8 Blood Urea Nitrogen 27 H Creatinine 0.67 Est Glomerular Filtrat Rate mL/min > 60 Glucose Level 78 Calcium Level 9.2 Phosphorus Level 3.1 Magnesium Level 1.8 Medications Current Medications Docusate Sodium (Colace) 100 mg BID PO Last administered on 02/27/19 20:30; Admin Dose 100 MG; Start 02/23/19 at 09:00 Famotidine (Pepcid) 20 mg BID PO Last administered on 02/27/19 20:30; Admin Dose 20 MG; Start 02/23/19 at 09:00 Isosorbide Dinitrate (Isordil) 10 mg TID PO Last administered on 02/27/19 20:32; Admin Dose 10 MG; Start 02/23/19 at 09:00 Nicotine (Nicoderm 21 Mg/ 24hr) 1 patch DAILY TRANSDERM Last administered on 03/01/19 09:43; Admin Dose 1 PATCH; Start 02/23/19 at 09:00 IV Flush (NS 3 ml) 3 ml PER PROTOCOL IV ; Start 02/22/19 at 22:30 Ondansetron HCl (Zofran Inj) 4 mg Q6H PRN IV NAUSEA/VOMITING Last administered on 02/24/19 15:27; Admin Dose 4 MG; Start 02/22/19 at 22:30 Nitroglycerin (Nitroglycerin (Sl Tab) 0.4 Mg) 1 tab Q5M PRN SL .CHEST PAIN; Start 02/22/19 at 22:30 Acetaminophen (Tylenol Tab) 650 mg Q6H PRN PO .PAIN 1-3 OR TEMP; Start 02/22/19 at 22:30 Acetaminophen/ Hydrocodone Bitart ([place] (5/325)) 1 tab Q6H PRN PO .PAIN 4-6 Last administered on 02/26/19 23:49; Admin Dose 1 TAB; Start 02/22/19 at 22:30 Docusate Sodium (Colace) 100 mg Q12H PRN PO .CONSTIPATION; Start 02/22/19 at 22:30 Bisacodyl (Dulcolax) 5 mg DAILY PRN PO .CONSTIPATION; Start 02/22/19 at 22:30 Spironolactone (Aldactone) 12.5 mg DAILY PO Last administered on 02/27/19 08:39; Admin Dose 12.5 MG; Start 02/25/19 at 09:00 Carvedilol (Coreg) 6.25 mg BID PO Last administered on 7/13/19at 20:33; Admin Dose 6.25 MG; Start 02/24/19 at 21:00 Ipratropium [place] (Atrovent 0.02% (Neb)) 0.5 mg Q4H RESP THERAPY PRN HHN sob Last administered on 02/28/19at 08:40; Admin Dose 0.5 MG; Start 02/24/19 at 16:30 Levalbuterol (Xopenex Neb) 0.63 mg Q4H RESP THERAPY PRN HHN sob Last administered on 02/28/19at 08:40; Admin Dose 0.63 MG; Start 02/24/19 at 16:00 Bumetanide (Bumex) 1 mg BID DIURETICS IV Last administered on 03/01/19at 05:41; Admin Dose 1 MG; Start 02/24/19 at 16:47 Haloperidol (Haldol) 5 mg Q6 PRN IM AGITATION/ANXIETY Last administered on 02/25/19at 04:35; Admin Dose 5 MG; Start 02/24/19 at 21:30 Miscellaneous Information Patients own medicat... BID@10,16 XX ; Start 02/25/19 at 10:00 Enoxaparin Sodium (Lovenox) 90 mg BID SC Last administered on 03/01/19at 09:47; Admin Dose 90 MG; Start 02/27/19 at 21:00 Lisinopril (Zestril) 2.5 mg DAILY PO ; Start 02/28/19 at 09:00 Metoprolol Tartrate (Lopressor) 5 mg Q4H PRN IV HR>110 Hold SBP<100; Start 02/28/19 at 15:00 Lorazepam (Ativan) 0.5 mg Q3H PRN IV AGITATION/ANXIETY Last administered on 03/01/19at 06:13; Admin Dose 0.5 MG; Start 02/28/19 at 21:20 Assessment/Plan Hospital Course (Demo Recall) ASSESSMENT AND PLAN: 1. Congestive heart failure. 2. 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 The patient was treated with IV Bumex and required brief BiPAP support, now back to O2 nasal cannula. 3. Underlying chronic obstructive pulmonary disease. 4. History of hepatitis C and cirrhosis. 5. Obstructive sleep apnea, likely. 6. History of hypertension. 7. History of pulmonary embolism and deep venous thrombosis. 8. History of stimulant drug abuse. RECOMMENDATIONS: 1. BiPAP p.r.n. 2. Oxygen. 3. Diuresis. 4. Followup labs and x-ray. MALGORZATA NELSON MD, [facility] Mar 01, 2019 13:53
[2019-03-02] VITALS: BP 119/82; PULSE 98; RESP 19
[2019-03-02] MEDS: HYDROCODONE/APAP (5/325) TAB PO PRN ×2 (00:28→17:01)
[2019-03-02 04:00] VITALS: BP 131/82; PULSE 94; RESP 18
[2019-03-02] MEDS: BUMETANIDE 1 MG INJ IV SCH ×2 (05:58→18:25)
[2019-03-02 07:53] VITALS: BP 115/83; PULSE 101; RESP 17
[2019-03-02] MEDS: DOCUSATE SODIUM 100 MG CAP PO SCH ×2 (08:27→20:22)
[2019-03-02] MEDS: NICOTINE (21 MG/24 HR) PATCH TRANSDERM SCH (08:27)
[2019-03-02] MEDS: FAMOTIDINE 20 MG TAB PO SCH ×2 (08:28→20:22)
[2019-03-02] MEDS: LISINOPRIL 5 MG TAB PO SCH (08:28)
[2019-03-02] MEDS: SPIRONOLACTONE 25 MG TAB PO SCH (08:28)
[2019-03-02] MEDS: ISOSORBIDE DINITRATE 10 MG TAB PO SCH ×3 (08:28→20:22)
[2019-03-02] MEDS: BALSAM PERU/CASTOR OIL 60 GM TUBE TOP SCH (08:30)
[2019-03-02] MEDS: ENOXAPARIN 100 MG/ML SYG SC SCH ×2 (08:33→20:23)
[2019-03-02 11:32] VITALS: BP 142/91; PULSE 99; RESP 19
--- NOTE | 2019-03-02 11:35 | CONS ---
Consult Date/Type/Reason Admit Date/Time Feb 22, 2019 at 20:25 Initial Consult Date 02/25/19 Type of Consult Pulmonary Requesting Provider: JUSTIN PAREKH MD Date/Time of Note DATE: 03/02/19 TIME: 11:28 Subjective comfortable. Objective Vital Signs Date Temp Pulse Resp B/P (MAP) Pulse Ox O2 O2 Flow FiO2 Time Delivery Rate 03/02/19 97.6 101 17 115/83 90 07:53 (94) 03/02/19 Nasal 2.0 07:30 Cannula 02/28/19 30 05:44 Intake and Output 03/01/19 03/01/19 03/02/19 1515:00 23:00 07:00 OutputOutput Total 2000 ml 550 ml 1400 ml BalanceBalance -2000 ml -550 ml -1400 ml Exam PHYSICAL EXAMINATION: VITAL SIGNS: HEENT: Pupils are equal and reactive to light. NECK: Supple, no JVD noted, no cervical adenopathy noted. LUNGS: Diminished breath sounds bilaterally. CARDIOVASCULAR: S1, S2 normal. ABDOMEN: Soft, nontender. No megaly or masses noted. EXTREMITIES: No clubbing, cyanosis noted. NEUROLOGIC: No changes. Vent Setting Fraction of Inspired Oxygen pe: 28 Results/Medications Result Diagram: 03/02/19 0845 03/02/19 0845 Results 24 hrs Laboratory Tests Test 03/02/19 08:45 White Blood Count 12.0 #H Red Blood Count 6.46 H Hemoglobin 15.4 Hematocrit 55.5 H Mean Corpuscular Volume 85.9 Mean Corpuscular Hemoglobin 23.8 L Mean Corpuscular Hemoglobin Concent 27.7 L Red Cell Distribution Width 20.4 H Platelet Count 304 Mean Platelet Volume 9.4 Immature Granulocytes % 0.600 H Neutrophils % 75.3 Lymphocytes % 9.1 L Monocytes % 13.5 H Eosinophils % 1.2 Basophils % 0.3 Nucleated Red Blood Cells % 0.0 Immature Granulocytes # 0.070 H Neutrophils # 9.1 H Lymphocytes # 1.1 Monocytes # 1.6 H Eosinophils # 0.2 Basophils # 0.0 Nucleated Red Blood Cells # 0.0 Sodium Level 139 Potassium Level 4.5 Chloride Level 95 L Carbon Dioxide Level 39 H Anion Gap 5 Blood Urea Nitrogen 22 H Creatinine 0.66 Est Glomerular Filtrat Rate mL/min > 60 Glucose Level 83 Calcium Level 9.2 Phosphorus Level 3.6 Magnesium Level 1.6 L Medications Current Medications Docusate Sodium (Colace) 100 mg BID PO Last administered on 03/02/19 08:27; Admin Dose 100 MG; Start 02/23/19 at 09:00 Famotidine (Pepcid) 20 mg BID PO Last administered on 03/02/19 08:28; Admin Dose 20 MG; Start 02/23/19 at 09:00 Isosorbide Dinitrate (Isordil) 10 mg TID PO Last administered on 03/02/19 08:28; Admin Dose 10 MG; Start 02/23/19 at 09:00 Nicotine (Nicoderm 21 Mg/ 24hr) 1 patch DAILY TRANSDERM Last administered on 03/02/19 08:27; Admin Dose 1 PATCH; Start 02/23/19 at 09:00 IV Flush (NS 3 ml) 3 ml PER PROTOCOL IV ; Start 02/22/19 at 22:30 Ondansetron HCl (Zofran Inj) 4 mg Q6H PRN IV NAUSEA/VOMITING Last administered on 02/24/19 15:27; Admin Dose 4 MG; Start 02/22/19 at 22:30 Nitroglycerin (Nitroglycerin (Sl Tab) 0.4 Mg) 1 tab Q5M PRN SL .CHEST PAIN; Start 02/22/19 at 22:30 Acetaminophen (Tylenol Tab) 650 mg Q6H PRN PO .PAIN 1-3 OR TEMP; Start 02/22/19 at 22:30 Acetaminophen/ Hydrocodone Bitart ([place] (5/325)) 1 tab Q6H PRN PO .PAIN 4-6 Last administered on 03/02/19 00:28; Admin Dose 1 TAB; Start 02/22/19 at 22:30 Docusate Sodium (Colace) 100 mg Q12H PRN PO .CONSTIPATION; Start 02/22/19 at 22:30 Bisacodyl (Dulcolax) 5 mg DAILY PRN PO .CONSTIPATION; Start 02/22/19 at 22:30 Spironolactone (Aldactone) 12.5 mg DAILY PO Last administered on 03/02/19 08:28; Admin Dose 12.5 MG; Start 02/25/19 at 09:00 Carvedilol (Coreg) 6.25 mg BID PO Last administered on 03/02/19 08:29; Admin Dose 6.25 MG; Start 02/24/19 at 21:00 Ipratropium [place] (Atrovent 0.02% (Neb)) 0.5 mg Q4H RESP THERAPY PRN HHN sob Last administered on 02/28/19 08:40; Admin Dose 0.5 MG; Start 02/24/19 at 16:30 Levalbuterol (Xopenex Neb) 0.63 mg Q4H RESP THERAPY PRN HHN sob Last administered on 02/28/19 08:40; Admin Dose 0.63 MG; Start 02/24/19 at 16:00 Bumetanide (Bumex) 1 mg BID DIURETICS IV Last administered on 03/02/19 05:58; Admin Dose 1 MG; Start 02/24/19 at 16:47 Haloperidol (Haldol) 5 mg Q6 PRN IM AGITATION/ANXIETY Last administered on 02/25/19 04:35; Admin Dose 5 MG; Start 02/24/19 at 21:30 Miscellaneous Information Patients own medicat... BID@10,16 XX ; Start 02/25/19 at 10:00 Enoxaparin Sodium (Lovenox) 90 mg BID SC Last administered on 03/02/19 08:33; Admin Dose 90 MG; Start 02/27/19 at 21:00 Lisinopril (Zestril) 2.5 mg DAILY PO Last administered on 03/02/19 08:28; Admin Dose 2.5 MG; Start 02/28/19 at 09:00 Metoprolol Tartrate (Lopressor) 5 mg Q4H PRN IV HR>110 Hold SBP<100; Start 02/28/19 at 15:00 Lorazepam (Ativan) 0.5 mg Q3H PRN IV AGITATION/ANXIETY Last administered on 03/01/19 06:13; Admin Dose 0.5 MG; Start 02/28/19 at 21:20 Assessment/Plan Hospital Course (Demo Recall) ASSESSMENT AND PLAN: 1. Congestive heart failure. 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 The patient was treated with IV Bumex and required brief BiPAP support, now back to O2 nasal cannula. 3. Underlying chronic obstructive pulmonary disease. 4. History of hepatitis C and cirrhosis. 5. Obstructive sleep apnea, likely. 6. History of hypertension. 7. History of pulmonary embolism and deep venous thrombosis. 8. History of stimulant drug abuse. RECOMMENDATIONS: 1. BiPAP p.r.n. 2. Oxygen. 3. Diuresis. consider palliative care eval. ? med surg MALGORZATA NELSON MD, [facility] Mar 02, 2019 11:35
--- NOTE | 2019-03-02 11:57 | CONS ---
Consult Date/Type/Reason Admit Date/Time Feb 22, 2019 at 20:25 Initial Consult Date 02/25/19 Requesting Provider: JUSTIN PAREKH MD Date/Time of Note DATE: 03/02/19 TIME: 11:54 Subjective NO acute events - pt stable - reports flank pain - no CP now. Pt had episode of SVT at 130s - short run - will monitor for now. ROS: No fever, no chills, no nausea, no vomiting, no diarrhea/constipation No recent weight changes No chest pain, no PND, no orthopnea - chronic SOB No dizziness, blurred vision No thirst, no heat or cold intolerance Objective Vitals Vital Signs Date Temp Pulse Resp B/P (MAP) Pulse Ox O2 O2 Flow FiO2 Time Delivery Rate 03/02/19 98.6 99 19 142/91 94 Nasal 11:32 (108) Cannula 03/02/19 2.0 07:30 02/28/19 30 05:44 Intake and Output 03/01/19 03/01/19 03/02/19 1515:00 23:00 07:00 OutputOutput Total 2000 ml 550 ml 1400 ml BalanceBalance -2000 ml -550 ml -1400 ml Exam General: WN/WD/NAD, AOx 2-3 HEENT: Unicetric/atraumatic/EOMI (follows commands) NECK: JVD elevated, no thyromegaly Lymph: no lymphadenopathy HEART: regular with no S3, II/ systolic murmur at apex, PMI L LUNGS: Coarse sounds ABD: soft, NT, ND, +BS : Intact Neuro: non focal SKIN: chronic changes EXT: trace edema Results/Medications Result Diagram: 03/02/19 0845 03/02/19 0845 Results 24 hrs Laboratory Tests Test 03/02/19 08:45 White Blood Count 12.0 #H Red Blood Count 6.46 H Hemoglobin 15.4 Hematocrit 55.5 H Mean Corpuscular Volume 85.9 Mean Corpuscular Hemoglobin 23.8 L Mean Corpuscular Hemoglobin Concent 27.7 L Red Cell Distribution Width 20.4 H Platelet Count 304 Mean Platelet Volume 9.4 Immature Granulocytes % 0.600 H Neutrophils % 75.3 Lymphocytes % 9.1 L Monocytes % 13.5 H Eosinophils % 1.2 Basophils % 0.3 Nucleated Red Blood Cells % 0.0 Immature Granulocytes # 0.070 H Neutrophils # 9.1 H Lymphocytes # 1.1 Monocytes # 1.6 H Eosinophils # 0.2 Basophils # 0.0 Nucleated Red Blood Cells # 0.0 Sodium Level 139 Potassium Level 4.5 Chloride Level 95 L Carbon Dioxide Level 39 H Anion Gap 5 Blood Urea Nitrogen 22 H Creatinine 0.66 Est Glomerular Filtrat Rate mL/min > 60 Glucose Level 83 Calcium Level 9.2 Phosphorus Level 3.6 Magnesium Level 1.6 L Home Meds Active Scripts Rivaroxaban* (Xarelto*) 20 Mg Tablet, 20 MG PO WITH DINNER, #30 TAB 2 Refills don't start before 02/03/19 Prov:[facility] 01/12/19 Rivaroxaban* (Xarelto*) 15 Mg Tablet, 15 MG PO BID for 21 Days, #42 TAB till 02/02/19 Prov:[facility] 01/12/19 Famotidine* (Famotidine*) 20 Mg Tablet, 20 MG PO BID, #60 TAB 2 Refills Prov:[facility] 01/12/19 Docusate Sodium* (Colace*) 100 Mg Capsule, 100 MG PO BID for 30 Days, #60 CAP 2 Refills Prov:[facility] 01/12/19 Acetazolamide* (Acetazolamide*) 250 Mg Tablet, 250 MG PO DAILY, #30 TAB Prov:[facility] 01/12/19 Spironolactone* (Aldactone*) 25 Mg Tablet, 25 MG PO DAILY, #30 TAB 2 Refills Prov:[facility] 01/12/19 Isosorbide Dinitrate* (Isordil*) 10 Mg Tablet, 10 MG PO TID, #90 TAB 2 Refills Prov:[facility] 01/12/19 Carvedilol* (Carvedilol*) 6.25 Mg Tablet, 3.25 MG PO BID, #60 TAB 2 Refills Prov:[facility] 01/12/19 Nicotine* (Nicotine* Patch) 21 mg/day Patch, 1 PATCH TRANSDERM DAILY, #30 PATCH 2 Refills Prov:[facility] 01/12/19 Levofloxacin* (Levofloxacin*) 500 Mg Tablet, 500 MG PO DAILY, #14 TAB stop when pills run out or on 01/19/19 Prov:ARMAND FERMIN 01/12/19 Hydrocodone/Acetaminophen (Hydrocodone-Acetamin 10-325 mg) 1 Each Tablet, 1 TAB PO Q4H PRN for MODERATE PAIN LEVEL 4-6, #20 TAB Prov:JOSE BRADY MD 12/04/18 Albuterol Sulfate* (Proair HFA*) 8.5 Gm Hfa.aer.ad, 2 PUFF INH Q6 for SOB, #1 INHALER Prov:JOSE BRADY MD 12/04/18 Furosemide* (Lasix*) 40 Mg Tablet, 40 MG PO BID for 30 Days, #60 TAB 1 Refill Take with Aldactone at the same time, take evening dose of before 6 PM as to not effect your sleep Prov:DAMEON MADRIGAL MD 11/21/18 Reported Medications Aspirin Ec (Aspir 81) 81 Mg Tablet.dr, 81 MG PO DAILY, #30 TAB 11/03/18 Medications Current Medications Docusate Sodium (Colace) 100 mg BID PO Last administered on 03/02/19at 08:27; Admin Dose 100 MG; Start 02/23/19 at 09:00 Famotidine (Pepcid) 20 mg BID PO Last administered on 03/02/19 08:28; Admin Dose 20 MG; Start 02/23/19 at 09:00 Isosorbide Dinitrate (Isordil) 10 mg TID PO Last administered on 03/02/19 08:28; Admin Dose 10 MG; Start 02/23/19 at 09:00 Nicotine (Nicoderm 21 Mg/ 24hr) 1 patch DAILY TRANSDERM Last administered on 03/02/19at 08:27; Admin Dose 1 PATCH; Start 02/23/19 at 09:00 IV Flush (NS 3 ml) 3 ml PER PROTOCOL IV ; Start 02/22/19 at 22:30 Ondansetron HCl (Zofran Inj) 4 mg Q6H PRN IV NAUSEA/VOMITING Last administered on 02/24/19at 15:27; Admin Dose 4 MG; Start 02/22/19 at 22:30 Nitroglycerin (Nitroglycerin (Sl Tab) 0.4 Mg) 1 tab Q5M PRN SL .CHEST PAIN; Start 02/22/19 at 22:30 Acetaminophen (Tylenol Tab) 650 mg Q6H PRN PO .PAIN 1-3 OR TEMP; Start 02/22/19 at 22:30 Acetaminophen/ Hydrocodone Bitart ([place] (5/325)) 1 tab Q6H PRN PO .PAIN 4-6 Last administered on 03/02/19 00:28; Admin Dose 1 TAB; Start 02/22/19 at 22:30 Docusate Sodium (Colace) 100 mg Q12H PRN PO .CONSTIPATION; Start 02/22/19 at 22:30 Bisacodyl (Dulcolax) 5 mg DAILY PRN PO .CONSTIPATION; Start 02/22/19 at 22:30 Spironolactone (Aldactone) 12.5 mg DAILY PO Last administered on 03/02/19 08:28; Admin Dose 12.5 MG; Start 02/25/19 at 09:00 Carvedilol (Coreg) 6.25 mg BID PO Last administered on 03/02/19 08:29; Admin Dose 6.25 MG; Start 02/24/19 at 21:00 Ipratropium [place] (Atrovent 0.02% (Neb)) 0.5 mg Q4H RESP THERAPY PRN HHN sob Last administered on 02/28/19 08:40; Admin Dose 0.5 MG; Start 02/24/19 at 16:30 Levalbuterol (Xopenex Neb) 0.63 mg Q4H RESP THERAPY PRN HHN sob Last administered on 02/28/19 08:40; Admin Dose 0.63 MG; Start 02/24/19 at 16:00 Bumetanide (Bumex) 1 mg BID DIURETICS IV Last administered on 03/02/19 05:58; Admin Dose 1 MG; Start 02/24/19 at 16:47 Haloperidol (Haldol) 5 mg Q6 PRN IM AGITATION/ANXIETY Last administered on 02/25/19 04:35; Admin Dose 5 MG; Start 02/24/19 at 21:30 Miscellaneous Information Patients own medicat... BID@10,16 XX ; Start 02/25/19 at 10:00 Enoxaparin Sodium (Lovenox) 90 mg BID SC Last administered on 03/02/19 08:33; Admin Dose 90 MG; Start 02/27/19 at 21:00 Lisinopril (Zestril) 2.5 mg DAILY PO Last administered on 03/02/19at 08:28; Admin Dose 2.5 MG; Start 02/28/19 at 09:00 Metoprolol Tartrate (Lopressor) 5 mg Q4H PRN IV HR>110 Hold SBP<100; Start 02/28/19 at 15:00 Lorazepam (Ativan) 0.5 mg Q3H PRN IV AGITATION/ANXIETY Last administered on 03/01/19at 06:13; Admin Dose 0.5 MG; Start 02/28/19 at 21:20 Magnesium Sulfate/ Dextrose 100 ml @ 100 mls/hr ONCE ONCE IVPB ; Start 03/02/19 at 12:00; Stop 03/02/19 at 12:59 Assessment/Plan Hospital Course (Demo Recall) 1.CHF-systolic acute on chronic - con't to keep euvolemic. 2.Cardiomyopathy-EF 15-20% - on meds now. 3.orthopnea/CURRY - con't gentle diuresis. 4.NSVT - short runs - non-sustained. 5.ARF-significantly improved - CR normlaized now. 6.H/O substance abuse- suspected substance in hospital 02/24, and 02/28 with visitors in room and then very lethargic thereafter. Tox screen positive for amphetamines/cannibinoids - d/c advised. 7.Cirrhosis/ascites - defer to primary team. 8. anxiety-was having and now lethargic s/p JOE Denis MD Mar 02, 2019 11:57
[2019-03-02] MEDS ORDERED: MAGNESIUM SULFATE 1 GM/D5W 100 ML IVPB ONE (12:00)
--- NOTE | 2019-03-02 12:19 | PN ---
Date/Time of Note Date/Time of Note DATE: 03/02/19 TIME: 12:17 Assessment/Plan VTE Prophylaxis Risk score (from Ns)>0 risk: 7 SCD applied (from Ns): No SCD contraindicated: other Pharmacological prophylaxis: LMWH Lines/Catheters IV Catheter Type [facility]from [facility]): Saline Lock Assessment/Plan Hospital Course S: Patient more awake and alert today. Tolerating diet. O: VS- see below PE: General: Well developed man obtunded, unresponsive in bed. Neuro: Unresponsive to sternal rub. Protecting airway. HEENT: Atraumatic, normocephalic. Neck: Supple with full range of motion. No rigidity or meningismus Chest: Nontender Lungs: Clear to auscultation bilaterally. Heart: Normal S1-S2, Regular rhythm and rate. No murmur, S3, or S4 Abdomen: Soft , nondistended, nontender throughout. Extremities: Trace LE edema. Assessment/Plan: 48 yo man history of hep C cirrhosis, CHF, PE and DVT presents in CHF exacerbation; active drug use in hospital. # Acute on chronic Systolic heart failure exacerbation- Previous echocardiogram showed an ejection fraction of approximately 10 to 15%- Appears to be reaching euvolemia, overall slowly improving. -For now continue Bumex 1mg IV BID - Dr. Vazquez following, follow-up with cardiology recommendations - Cont coreg, isordil. #Stimulant drug use in hospital, suspected- The evening of 02/24 and early the morning of 02/28 patient had visitors in the room and then was found to be cya notic and lethargic; followed by combative behavior and agitation. - For now protecting airway; will monitor on telemetry for now. - Continue sitter. No visitors, will obtain PT eval # History of pulmonary embolism / Left subclavian thrombus / Popiteal DVT- Diagnosed on 12/01/2018. - Currently on subQ lovenox for inability to tolerate PO - Resume xarelto on discharge. # Abdominal ascites- Got therapeutic paracentesis earlier this admission. Studies not sent. -Monitor for now # Liver cirrhosis: History of hepatitis C. Undetectable viral load in 2018. Ammonia levels normal on February 23 - continue diuresis. #Acute on likely kidney disease- Worsened after admission, now resolved -Monitor # COPD: PRN breathing treatments as indicated DVT: lovenox GI: None Dispo: Likely home next 24 hours after PT eval and after 1 more day of diuresis. Result Diagram: 03/02/19 0845 03/02/19 0845 Results 24hrs Laboratory Tests Test 03/02/19 08:45 White Blood Count 12.0 #H Red Blood Count 6.46 H Hemoglobin 15.4 Hematocrit 55.5 H Mean Corpuscular Volume 85.9 Mean Corpuscular Hemoglobin 23.8 L Mean Corpuscular Hemoglobin Concent 27.7 L Red Cell Distribution Width 20.4 H Platelet Count 304 Mean Platelet Volume 9.4 Immature Granulocytes % 0.600 H Neutrophils % 75.3 Lymphocytes % 9.1 L Monocytes % 13.5 H Eosinophils % 1.2 Basophils % 0.3 Nucleated Red Blood Cells % 0.0 Immature Granulocytes # 0.070 H Neutrophils # 9.1 H Lymphocytes # 1.1 Monocytes # 1.6 H Eosinophils # 0.2 Basophils # 0.0 Nucleated Red Blood Cells # 0.0 Sodium Level 139 Potassium Level 4.5 Chloride Level 95 L Carbon Dioxide Level 39 H Anion Gap 5 Blood Urea Nitrogen 22 H Creatinine 0.66 Est Glomerular Filtrat Rate mL/min > 60 Glucose Level 83 Calcium Level 9.2 Phosphorus Level 3.6 Magnesium Level 1.6 L Exam/Review of Systems Exam Vitals Vital Signs Date Temp Pulse Resp B/P (MAP) Pulse Ox O2 O2 Flow FiO2 Time Delivery Rate 03/02/19 98.6 99 19 142/91 94 Nasal 11:32 (108) Cannula 03/02/19 2.0 07:30 02/28/19 30 05:44 Intake and Output 03/01/19 03/01/19 03/02/19 1515:00 23:00 07:00 OutputOutput Total 2000 ml 550 ml 1400 ml BalanceBalance -2000 ml -550 ml -1400 ml Results Results 24hrs Laboratory Tests Test 03/02/19 08:45 White Blood Count 12.0 #H Red Blood Count 6.46 H Hemoglobin 15.4 Hematocrit 55.5 H Mean Corpuscular Volume 85.9 Mean Corpuscular Hemoglobin 23.8 L Mean Corpuscular Hemoglobin Concent 27.7 L Red Cell Distribution Width 20.4 H Platelet Count 304 Mean Platelet Volume 9.4 Immature Granulocytes % 0.600 H Neutrophils % 75.3 Lymphocytes % 9.1 L Monocytes % 13.5 H Eosinophils % 1.2 Basophils % 0.3 Nucleated Red Blood Cells % 0.0 Immature Granulocytes # 0.070 H Neutrophils # 9.1 H Lymphocytes # 1.1 Monocytes # 1.6 H Eosinophils # 0.2 Basophils # 0.0 Nucleated Red Blood Cells # 0.0 Sodium Level 139 Potassium Level 4.5 Chloride Level 95 L Carbon Dioxide Level 39 H Anion Gap 5 Blood Urea Nitrogen 22 H Creatinine 0.66 Est Glomerular Filtrat Rate mL/min > 60 Glucose Level 83 Calcium Level 9.2 Phosphorus Level 3.6 Magnesium Level 1.6 L Medications Medication Current Medications Docusate Sodium (Colace) 100 mg BID PO Last administered on 03/02/19 08:27; Admin Dose 100 MG; Start 02/23/19 at 09:00 Famotidine (Pepcid) 20 mg BID PO Last administered on 03/02/19 08:28; Admin Dose 20 MG; Start 02/23/19 at 09:00 Isosorbide Dinitrate (Isordil) 10 mg TID PO Last administered on 03/02/19 08:28; Admin Dose 10 MG; Start 02/23/19 at 09:00 Nicotine (Nicoderm 21 Mg/ 24hr) 1 patch DAILY TRANSDERM Last administered on 03/02/19 08:27; Admin Dose 1 PATCH; Start 02/23/19 at 09:00 IV Flush (NS 3 ml) 3 ml PER PROTOCOL IV ; Start 02/22/19 at 22:30 Ondansetron HCl (Zofran Inj) 4 mg Q6H PRN IV NAUSEA/VOMITING Last administered on 02/24/19 15:27; Admin Dose 4 MG; Start 02/22/19 at 22:30 Nitroglycerin (Nitroglycerin (Sl Tab) 0.4 Mg) 1 tab Q5M PRN SL .CHEST PAIN; Start 02/22/19 at 22:30 Acetaminophen (Tylenol Tab) 650 mg Q6H PRN PO .PAIN 1-3 OR TEMP; Start 02/22/19 at 22:30 Acetaminophen/ Hydrocodone Bitart ([place] (5/325)) 1 tab Q6H PRN PO .PAIN 4-6 Last administered on 03/02/19 00:28; Admin Dose 1 TAB; Start 02/22/19 at 22:30 Docusate Sodium (Colace) 100 mg Q12H PRN PO .CONSTIPATION; Start 02/22/19 at 22:30 Bisacodyl (Dulcolax) 5 mg DAILY PRN PO .CONSTIPATION; Start 02/22/19 at 22:30 Spironolactone (Aldactone) 12.5 mg DAILY PO Last administered on 03/02/19at 08:28; Admin Dose 12.5 MG; Start 02/25/19 at 09:00 Carvedilol (Coreg) 6.25 mg BID PO Last administered on 03/02/19at 08:29; Admin Dose 6.25 MG; Start 02/24/19 at 21:00 Ipratropium [place] (Atrovent 0.02% (Neb)) 0.5 mg Q4H RESP THERAPY PRN HHN sob Last administered on 02/28/19at 08:40; Admin Dose 0.5 MG; Start 02/24/19 at 16:30 Levalbuterol (Xopenex Neb) 0.63 mg Q4H RESP THERAPY PRN HHN sob Last administered on 02/28/19at 08:40; Admin Dose 0.63 MG; Start 02/24/19 at 16:00 Bumetanide (Bumex) 1 mg BID DIURETICS IV Last administered on 03/02/19at 05:58; Admin Dose 1 MG; Start 02/24/19 at 16:47 Haloperidol (Haldol) 5 mg Q6 PRN IM AGITATION/ANXIETY Last administered on 02/25/19at 04:35; Admin Dose 5 MG; Start 02/24/19 at 21:30 Miscellaneous Information Patients own medicat... BID@16 XX ; Start 02/25/19 at 10:00 Enoxaparin Sodium (Lovenox) 90 mg BID SC Last administered on 03/02/19at 08:33; Admin Dose 90 MG; Start 02/27/19 at 21:00 Lisinopril (Zestril) 2.5 mg DAILY PO Last administered on 03/02/19at 08:28; Admin Dose 2.5 MG; Start 02/28/19 at 09:00 Metoprolol Tartrate (Lopressor) 5 mg Q4H PRN IV HR>110 Hold SBP<100; Start 02/28/19 at 15:00 Lorazepam (Ativan) 0.5 mg Q3H PRN IV AGITATION/ANXIETY Last administered on 03/01/19at 06:13; Admin Dose 0.5 MG; Start 02/28/19 at 21:20 Magnesium Sulfate/ Dextrose 100 ml @ 100 mls/hr ONCE ONCE IVPB ; Start 03/02/19 at 12:00; Stop 03/02/19 at 12:59 IRINEO MARC Mar 02, 2019 12:19
[2019-03-02] MEDS: IPRATROPIUM (NEB) 0.5 MG/2.5 ML AMP HHN PRN (13:58)
[2019-03-02] MEDS: LEVALBUTEROL (NEB) 0.63 MG/3 ML AMP HHN PRN (14:00)
[2019-03-02 20:02] VITALS: BP 111/80; PULSE 97; RESP 20
[2019-03-02] MEDS: LORAZEPAM 2 MG INJ IV PRN (23:33)
[2019-03-03 02:08] VITALS: BP 110/81; PULSE 91; RESP 18
[2019-03-03] MEDS: BUMETANIDE 1 MG INJ IV SCH (05:18)
[2019-03-03] MEDS: IPRATROPIUM (NEB) 0.5 MG/2.5 ML AMP HHN PRN ×2 (05:45→11:51)
[2019-03-03] MEDS: LEVALBUTEROL (NEB) 0.63 MG/3 ML AMP HHN PRN ×2 (05:45→11:51)
[2019-03-03 08:00] VITALS: BP 125/86; PULSE 99; RESP 20
[2019-03-03] MEDS: HYDROCODONE/APAP (5/325) TAB PO PRN (08:05)
[2019-03-03] MEDS: DOCUSATE SODIUM 100 MG CAP PO SCH (08:05)
[2019-03-03] MEDS: ISOSORBIDE DINITRATE 10 MG TAB PO SCH (08:06)
[2019-03-03] MEDS: FAMOTIDINE 20 MG TAB PO SCH (08:07)
[2019-03-03] MEDS: SPIRONOLACTONE 25 MG TAB PO SCH (08:07)
[2019-03-03] MEDS: LISINOPRIL 5 MG TAB PO SCH (08:08)
[2019-03-03] MEDS: NICOTINE (21 MG/24 HR) PATCH TRANSDERM SCH (08:09)
[2019-03-03] MEDS: ENOXAPARIN 100 MG/ML SYG SC SCH (08:15)
[2019-03-03] MEDS: BALSAM PERU/CASTOR OIL 60 GM TUBE TOP SCH (09:00)
[2019-03-03] MEDS ORDERED: ALBU8.5H8 INH (09:12)
[2019-03-03] MEDS ORDERED: CARV6.2579 PO (09:12)
[2019-03-03] MEDS ORDERED: POTA8CAP PO (09:12)
[2019-03-03] MEDS ORDERED: FURO-109 PO (09:12)
[2019-03-03] MEDS ORDERED: RIVA20TA5 PO (09:12)
[2019-03-03] MEDS ORDERED: LISI-313 PO (09:12)
[2019-03-03] MEDS ORDERED: ISOS10TA2 PO (09:12)
[2019-03-03] MEDS ORDERED: SPIR25TA PO (09:12)
[2019-03-03] MEDS ORDERED: MAGNESIUM OXIDE 400 MG TAB PO ONE (10:30)
--- NOTE | 2019-03-03 10:32 | PDOCDIS ---
Discharge Instructions DIAGNOSIS Discharge Diagnosis # Acute on chronic Systolic heart failure exacerbation #Stimulant drug use # History of pulmonary embolism / Left subclavian thrombus / Popiteal DVT # Abdominal ascites # Liver cirrhosis: History of hepatitis C. #Acute on likely kidney disease- # COPD CONDITION [id number] Patient Condition: [id number] Stable HOME CARE INSTRUCTIONS: [id number] Diet Instructions: [id number] Low Fat /Cholesterol FOLLOW UP/APPOINTMENTS Follow-up Plan 1. Follow up with Dr. Jef Vazquez in one week Office Address [address] [place] [id number] Office 2. Follow up with your primary care provider in 1-2 weeks BEV TTIUS NP Mar 03, 2019 10:32
--- NOTE | 2019-03-03 18:44 | DS ---
Date/Time of Note Date/Time of Note DATE: 03/03/19 TIME: 18:40 Discharge Summary Admission/Discharge Info Admit Date/Time Feb 22, 2019 at 20:25 Discharge Date/Time Mar 03, 2019 at 12:30 Discharge Diagnosis # Acute on chronic Systolic heart failure exacerbation #Stimulant drug use # History of pulmonary embolism / Left subclavian thrombus / Popiteal DVT # Abdominal ascites # Liver cirrhosis: History of hepatitis C. #Acute on likely kidney disease- # COPD Patient Condition: Stable Hospital Course This is a 48-year-old male with history of CHF, cardiomyopathy with severe systolic dysfunction with EF of 15 to 20% reportedly, bilateral pulmonary embolism, left lower extremity DVT, COPD, cirrhosis, hepatitis C, illicit drug use, came to the hospital due to reports of shortness of breath and reported 20 pound weight gain for the past 2 weeks prior to admission. He was [facility] to [facility] due to insurance issues. Patient was consulted by oracle application architect as well as by lumber bearer. He was noted with acute on chronic systolic heart failure with exacerbation. We did continue diuresis per lumber bearer recommendations and optimize him with his cardiovascular medications. He was seen by oracle application architect for his history of pulmonary embolism and we did transition him to oral Xarelto medication. He did have suspect stimulant drug use in the hospital on February 24 and February 28 from his patient visitors. We did have sitter initially see him and he was advised for medical compliance and illicit drug use cessation. For his abdominal ascites from cirrhosis he was provided with therapeutic paracentesis. He was noted with some renal insufficiency on admission which did improve during his course of stay. For COPD we did provide him with breathing treatments as needed. During his course of stay he did improve. transmission worker did follow the patient. He was advised for medical compliance and advised severity of his condition. The plan of care was discussed with the patient and he verbalizes understanding. On the day of discharge patient was in stable condition Discussed POC with Dr. Noonan Caroleen Meds Active Scripts Potassium Chloride* (Potassium Chloride*) 8 Meq Capsule.er, 10 MEQ PO DAILY, #7 CAP Prov:BEV TITUS POINTING MACHINE OPERATOR 03/03/19 Spironolactone* (Aldactone*) 25 Mg Tablet, 12.5 MG PO DAILY, #30 TAB Prov:BEV TITUS POINTING MACHINE OPERATOR 03/03/19 Lisinopril* (Lisinopril*) 5 Mg Tablet, 2.5 MG PO DAILY, #30 TAB Prov:SEGUNDOSHERIFJabierBEV NP 03/03/19 Carvedilol* (Carvedilol*) 6.25 Mg Tablet, 6.25 MG PO BID, #60 TAB Prov:ARIELABEV NP 03/03/19 Rivaroxaban* (Xarelto*) 20 Mg Tablet, 20 MG PO WITH DINNER, #30 TAB 2 Refills don't start before 02/03/19 Prov:SEGUNDOBEV MONTGOMERY NP 03/03/19 Isosorbide Dinitrate* (Isordil*) 10 Mg Tablet, 10 MG PO TID, #90 TAB 2 Refills Prov:SEGUNDOBEV MONTGOMERY NP 03/03/19 Albuterol Sulfate* (Proair HFA*) 8.5 Gm Hfa.aer.ad, 2 PUFF INH Q6 for SOB, #1 INHALER Prov:BEV TITUS NP 03/03/19 Furosemide* (Lasix*) 40 Mg Tablet, 40 MG PO BID for 30 Days, #60 TAB 1 Refill Take with Aldactone at the same time, take evening dose of before 6 PM as to not effect your sleep Prov:BEV TITUS NP 03/03/19 Famotidine* (Famotidine*) 20 Mg Tablet, 20 MG PO BID, #60 TAB 2 Refills Prov:ARMAND FERMIN 01/12/19 Docusate Sodium* (Colace*) 100 Mg Capsule, 100 MG PO BID for 30 Days, #60 CAP 2 Refills Prov:ARMAND FERMIN 01/12/19 Hydrocodone/Acetaminophen (Hydrocodone-Acetamin 10-325 mg) 1 Each Tablet, 1 TAB PO Q4H PRN for MODERATE PAIN LEVEL 4-6, #20 TAB Prov:JOSE BRADY MD 12/04/18 Discontinued Reported Medications Aspirin Ec (Aspir 81) 81 Mg Tablet.dr, 81 MG PO DAILY, #30 TAB 11/03/18 Discontinued Scripts Rivaroxaban* (Xarelto*) 15 Mg Tablet, 15 MG PO BID for 21 Days, #42 TAB till 02/02/19 Prov:ARMAND FERMIN 01/12/19 Acetazolamide* (Acetazolamide*) 250 Mg Tablet, 250 MG PO DAILY, #30 TAB Prov:ARMAND FERMIN. 01/12/19 Spironolactone* (Aldactone*) 25 Mg Tablet, 25 MG PO DAILY, #30 TAB 2 Refills Prov:ARMAND FERMIN. 01/12/19 Carvedilol* (Carvedilol*) 6.25 Mg Tablet, 3.25 MG PO BID, #60 TAB 2 Refills Prov:ARMAND FERMIN . 01/12/19 Nicotine* (Nicotine* Patch) 21 mg/day Patch, 1 PATCH TRANSDERM DAILY, #30 PATCH 2 Refills Prov:ARMAND FERMIN . 01/12/19 Levofloxacin* (Levofloxacin*) 500 Mg Tablet, 500 MG PO DAILY, #14 TAB stop when pills run out or on 01/19/19 Prov:ARMAND FERMIN . 01/12/19 Follow-up Plan 1. Follow up with Dr. Jose Vazquez in one week Office Address [address] [place] [id number] Office 2. Follow up with your primary care provider in 1-2 weeks Primary Care Provider Dulce Joyce Time spent on discharge: > 30 minutes Pending Labs Laboratory Tests Test 03/03/19 09:23 Sodium Level 135 mmol/L (135-144) Potassium Level 3.8 mmol/L (3.5-5.1) Chloride Level 91 mmol/L (97-110) Carbon Dioxide Level 39 mmol/L (21-31) Anion Gap 5 (5-13) Blood Urea Nitrogen 22 mg/dl (7-20) Creatinine 0.75 mg/dl (0.61-1.24) Est Glomerular Filtrat Rate mL/min > 60 mL/min (>60) Glucose Level 147 mg/dl (70-220) Calcium Level 8.5 mg/dl (8.4-10.2) Magnesium Level 1.5 mg/dl (1.7-2.5) Total Bilirubin 0.5 mg/dl (0.2-1.3) Direct Bilirubin 0.00 mg/dl (0.00-0.20) Indirect Bilirubin 0.5 mg/dl (0-1.1) Aspartate Amino Transf (AST/SGOT) 28 IU/L (15-46) Alanine Aminotransferase (ALT/SGPT) 23 IU/L (13-69) Alkaline Phosphatase 167 IU/L (42-121) Total Protein 6.5 g/dl (6.1-8.1) Albumin 3.1 g/dl (3.3-4.9) Globulin 3.40 g/dl (1.3-3.2) Albumin/Globulin Ratio 0.91 BEV TITUS NP Mar 03, 2019 18:44
== END 2019-03-03 12:30 | disposition home or self-care (01) | DRG 291 ==
LOC: 6WM 20:25 → ICU 02-24 18:45 → TEL 02-26 19:08 → 5EC 03-02 15:17
PROVIDERS: ADMIT Internal Medicine; ATTEND Hospitalist
PROC: 0W9G3ZZ Drainage of Peritoneal Cavity, Percutaneous Approach (ICD-10-PCS; principal; 2019-02-24)
PROC: 5A09457 Assistance with Respiratory Ventilation, 24-96 Consecutive Hours, Continuous Positive Airway Pressure (ICD-10-PCS; 2019-02-24)
DX: I13.0 Hypertensive heart and chronic kidney disease with heart failure and stage 1 through stage 4 chronic kidney disease, or unspecified chronic kidney disease (principal); I50.23 Acute on chronic systolic (congestive) heart failure; N17.9 Acute kidney failure, unspecified; R18.8 Other ascites; I42.9 Cardiomyopathy, unspecified; K74.69 Other cirrhosis of liver; B19.20 Unspecified viral hepatitis C without hepatic coma; N18.9 Chronic kidney disease, unspecified; J44.9 Chronic obstructive pulmonary disease, unspecified; F15.90 Other stimulant use, unspecified, uncomplicated; E78.5 Hyperlipidemia, unspecified; E87.70 Fluid overload, unspecified; G47.33 Obstructive sleep apnea (adult) (pediatric); Z79.82 Long term (current) use of aspirin
CPT/HCPCS: 36600; 70450; 71045; 71250; 76705; 80048; 80053; 80307; 82140; 82803; 82962; 83605; 83735; 83880; 84100; 85025; 85610; 85730; 87081; 92526; 92610; 94640; 94660; 94664; 97162; 97164; J1200; J1630; J1650; J2060; J2310; J2405; J3475; J3480